=== PATIENT | male | born 1935 | race Caucasian/White ===

== ENCOUNTER 2017-04-22 14:55 | Emergency (ER) | payer MEDICARE, MEDICAID ==
[~2017-04-22] VITALS: Ht 162.6 cm; Wt 81.6 kg
[~2017-04-22 14:55] MED LIST: AMLODIPINE BES2.5 MG ORAL; AMLODIPINE BESYL5 MG ORAL; ASPIR 8181 MG ORAL; CEPHALEXIN500 MG ORAL; FUROSEMIDE40 MG ORAL; HEPARIN SO5000 UNIT2 SUBQ; HEPARIN1000 UNIT/ SUBQ; POTASSIUM CHLO20 ME1 ORAL; POTASSIUM CHLO20 ME2 ORAL; ROCEPHIN 11 GM/50 ML IVPB; TYLENOL650 MG/20. ORAL; VANCOMYCIN1 GM/2502 IVPB
[2017-04-22 15:15] VITALS: BP 152/72
[2017-04-22] MEDS ORDERED: BACTRIM DS TAB1 EAC1 ORAL (15:21)
[2017-04-22 15:26] VITALS: BP 132/62
--- NOTE | 2017-04-22 15:27 | Emergency Room Report ---
History of Present Illness General Chief Complaint: General Complaint Source: Medical Record, Caregiver Present Illness HPI 81YOM BIB HCW from [facility] with 2 days right foot redness/swelling/warmth patient aphasic, developmental delay since HCW denies vomiting, diarrhea, fever/chills Feels well otherwise Denies DM history Denies known history of cellulitis, asbcess Allergies: Coded Allergies: No Known Allergies (Unverified , 06/15/12) Patient History Limited by: medical condition Past Medical History: other - developmental delay Past Surgical History: none Pertinent Family History: none Social History: Denies: alcohol use, drug use, smoking Immunizations: UTD Reviewed Nursing Documentation: PMH: Agreed, PSxH: Agreed Nursing Documentation-PMH Hx Hypertension: Yes Hx Cancer: No Hx Gastrointestinal Problems: No Hx Neurological Problems: Yes - MENTALLY DELAYED Hx Memory Loss: Yes Hx Concentration Difficulty: Yes Hx Speech Problem: Yes Hx Aphasia: Yes Hx Weakness: Yes Review of Systems All Other Systems: negative except mentioned in HPI Physical Exam Vital Signs Date Time Temp Pulse Resp B/P Pulse Ox O2 Delivery O2 Flow Rate FiO2 04/22/17 15:04 97.7 80 18 152/72 99 Room Air Sp02 EP Interpretation: reviewed, normal General Appearance: normal inspection, well appearing, no apparent distress, alert, GCS 15, non-toxic Head: normocephalic, atraumatic Eyes: bilateral eye EOMI, bilateral eye PERRL ENT: normal ENT inspection, hearing grossly normal, normal voice Neck: normal inspection, full range of motion, supple, no bony tend Respiratory: normal inspection, lungs clear, normal breath sounds, no respiratory distress, no retraction, no wheezing Cardiovascular #1: regular rate, rhythm, no edema Gastrointestinal: normal inspection, normal bowel sounds, non tender, soft, no guarding, no hernia Genitourinary: no CVA tenderness Musculoskeletal: other - Right foot: non-pitting edema, streaking erythema. Palpable warmth. No right calf ttp, swelling Neurologic: normal inspection, alert, oriented x3, responsive, hybrid corn breeder III-XII nml as tested, motor strength/tone normal, speech normal Psychiatric: normal inspection, judgement/insight normal, mood/affect normal Skin: normal inspection, normal color, no rash Medical Decision Making Diagnostic Impression: Primary Impression: Cellulitis Qualified Codes: L03.115 - Cellulitis of right lower limb ER Course Right foot cellulitis Rx bactrim Not systemically ill Afebrile Low suspicion for DVT given no calf ttp, no recent surgery, non-smoker Last Vital Signs Date Time Temp Pulse Resp B/P Pulse Ox O2 Delivery O2 Flow Rate FiO2 04/22/17 15:15 97.7 18 152/72 99 Room Air 04/22/17 15:04 80 Status: improved Disposition: HOME, SELF-CARE Condition: Improved Scripts Trimethoprim/Sulfamethoxazole 160/800* (BACTRIM DS TABLET*) 1 Each Tablet 1 TAB ORAL Q12H for 7 Days, #13 TAB 0 Refills Prov: BUDDY MARTINEZ M.D. 04/22/17 Patient Instructions: Cellulitis, [id number] Additional Instructions: - Take ALL antibiotics until finished - Return to ER for fever, spread of redness/rash/swelling up leg BUDDY MARTINEZ M.D. Apr 22, 2017 15:27
[2017-04-22] MEDS ORDERED: Bactrim DS (160mg/800mg) tab ORAL ONE (15:30)
== END 2017-04-22 15:30 | disposition home or self-care (01) ==
LOC: EMR 15:30
DX: L03.115 Cellulitis of right lower limb (principal); R62.50 Unspecified lack of expected normal physiological development in childhood; I10 Essential (primary) hypertension
CPT/HCPCS: 99283

== ENCOUNTER 2018-01-07 10:08 | Inpatient (IN) | payer MEDICARE, MEDICAID ==
[2018-01-07] VITALS (7 sets, daily range): BP systolic 103–128; BP diastolic 55–85
[~2018-01-07] VITALS: Ht 157.5 cm; Wt 86.6 kg
[~2018-01-07 10:08] MED LIST changes: +BACTRIM DS TAB1 EAC1 ORAL
[2018-01-07] MEDS ORDERED: LEVOTHYROXINE75 MCG ORAL (10:29)
[2018-01-07] MEDS ORDERED: Silver Nitrate Stick TOPIC ONE (11:06)
--- NOTE | 2018-01-07 11:25 | Emergency Room Report ---
History of Present Illness General Chief Complaint: Nosebleed Source: Medical Record, EMS Present Illness HPI Patient presents with complaints of epistaxis Patient himself has significant developmental delay Patient is here with communications media professor Who reports that yesterday patient had similar episode he appears to be picking at his nose The bleeding stopped yesterday with some pressure however today again he was seen picking at the nose and the bleeding was more difficult to stop History from the patient is not able to be obtained Powersaw Supervisor reports some change in thyroid medicine denies any Coumadin or other blood thinners other than aspirin Allergies: Coded Allergies: No Known Allergies (Unverified , 06/15/12) Patient History Limited by: medical condition Past Medical History: see triage record Pertinent Family History: unable to obtain Reviewed Nursing Documentation: PMH: Agreed; PSxH: Agreed Nursing Documentation-PMH Past Medical History: No History, Except For Hx Hypertension: Yes Hx Cancer: No Hx Gastrointestinal Problems: No Hx Neurological Problems: Yes - MENTALLY DELAYED Hx Memory Loss: Yes Hx Concentration Difficulty: Yes Hx Speech Problem: Yes Hx Aphasia: Yes Hx Weakness: Yes Review of Systems All Other Systems: limited - Other than the ones mentioned in the history of present illness all others are reviewed however they do stay limited due to the patient's mental status Physical Exam Vital Signs Date Time Temp Pulse Resp B/P (MAP) Pulse Ox O2 Delivery O2 Flow Rate FiO2 01/07/18 10:08 98.9 123 18 125/85 100 Room Air 99.0 Sp02 EP Interpretation: reviewed, normal General Appearance: no apparent distress Head: normocephalic, atraumatic Eyes: bilateral eye PERRL ENT: other - Evidence of anterior bleeding from the right chamber, not pulsatile Neck: supple Respiratory: chest non-tender, lungs clear Cardiovascular #1: regular rate, rhythm Gastrointestinal: non tender, soft Musculoskeletal: normal inspection Neurologic: alert - Responsive makes eye contact, however nonverbal, baseline mental status per communications media professor Skin: normal color, no rash Lymphatic: no adenopathy Procedures Additional Procedure Procedure Narrative Initially direct pressure was applied to the right nasal region along with silver nitrate application. Patient however continued to have oozing of blood from the anterior chamber and therefore packing was placed. 7.5 cm nasal packing with posterior and anterior chamber balloon sure placed in both inflated vision tolerate the procedure very well Medical Decision Making Diagnostic Impression: Primary Impression: Epistaxis Additional Impression: Severe epistaxis ER Course Given the patient's presentation and history baseline blood work was initiated Initial attempt of pressure and silver nitrate does not appropriately control the bleeding therefore the patient needed packing of the right nasal Nare This is performed and patient will require further observation Powersaw Supervisor is also concerned about the patient's behavior and possible removal of the apparatus Last Vital Signs Date Time Temp Pulse Resp B/P (MAP) Pulse Ox O2 Delivery O2 Flow Rate FiO2 01/07/18 10:20 99.0 85 18 125/85 100 Room Air 99.0 Status: improved Disposition: ADMITTED INPATIENT Condition: Serious Laura Uribe DO Jan 07, 2018 11:25
[2018-01-07 11:56] LABS: BASOPHILS % (AUTO) 0.7 % (0.0-2.0); HEMATOCRIT 37.7 % (42.0-52.0); LYMPHOCYTES % (AUTO) 14.3 % (20.0-45.0); MEAN CORPUSCULAR VOLUME 87 FL (80-99); PLATELET COUNT 244 K/UL (150-450); RED BLOOD COUNT 4.33 M/UL (4.70-6.10); RED CELL DISTRIBUTION WIDTH 12.4 % (11.6-14.8); WHITE BLOOD COUNT 8.6 K/UL (4.8-10.8)
[2018-01-07 12:05] LABS: INR 1.1 (0.9-1.1)
[2018-01-07 12:08] LABS: ANION GAP 8 mmol/L (5-15); BLOOD UREA NITROGEN 26 mg/dL (7-18); CALCIUM 8.3 MG/DL (8.5-10.1); CARBON DIOXIDE 26 MMOL/L (21-32); CHLORIDE 109 MMOL/L (98-107); CREATININE 1.1 MG/DL (0.55-1.30); POTASSIUM 3.6 MMOL/L (3.5-5.1); SODIUM 143 MMOL/L (136-145)
[2018-01-07] MEDS ORDERED: Augmentin 875mg Tab ORAL ONE (13:15)
[2018-01-07] MEDS ORDERED: Zolpidem 5mg tab ORAL PRN (13:30)
[2018-01-07] MEDS ORDERED: Mylanta II UD 30ml ORAL PRN (13:30)
[2018-01-07] MEDS ORDERED: Miralax 17gm pkt ORAL PRN (13:30)
[2018-01-07] MEDS ORDERED: Morphine Sulfate 4mg/ml Inj IVP PRN (13:30)
[2018-01-07] MEDS ORDERED: LORazepam Inj 2mg/ml 1ml IV PRN (13:30)
--- NOTE | 2018-01-07 15:05 | Consultation ---
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 His nose was packed by ER physician and he is admitted for observation. Allergies: Coded Allergies: No Known Allergies (Unverified , 06/15/12) Medication History Scheduled Amlodipine Besylate* (Amlodipine Besylate*), 2.5 MG ORAL DAILY, (Reported) Aspirin* (Aspir 81*), 81 MG ORAL DAILY, (Reported) Furosemide* (Lasix*), 40 MG ORAL TWICE A DAY, (Reported) Levothyroxine Sodium* (Levothyroxine Sodium*), 75 MCG ORAL DAILY, (Reported) Potassium Chloride* (K-Dur*), 20 MEQ ORAL TWICE A DAY, (Reported) Discontinued Medications Acetaminophen (Acetaminophen), 650 MG ORAL Q6H PRN for Prn Headache/Temp > 101, (Reported) Discontinued Reason: MD discontinued med Cephalexin* (Keflex*), 500 MG ORAL EVERY 12 HOURS Discontinued Reason: Therapy completed Potassium Chloride (Potassium Chloride), 20 MEQ ORAL DAILY Discontinued Reason: Medication dose changed Trimethoprim/Sulfamethoxazole 160/800* (Bactrim Ds Tablet*), 1 TAB ORAL Q12H Discontinued Reason: Therapy completed Patient History Healthcare decision maker Resuscitation status Advanced Directive on File Past Medical/Surgical History Past Medical/Surgical History: (1) Developmental delay Review of Systems All Other Systems: negative except mentioned in HPI Physical Exam General Appearance: WD/WN Lines, tubes and drains: peripheral HEENT: normocephalic, atraumatic, other - nose is packed Neck: non-tender, normal alignment Respiratory/Chest: chest wall non-tender, normal breath sounds Breasts: no masses Cardiovascular/Chest: normal rate Abdomen: normal bowel sounds, non tender Genitourinary/Rectal: normal genital exam Last 24 Hour Vital Signs Date Time Temp Pulse Resp B/P (MAP) Pulse Ox O2 Delivery O2 Flow Rate FiO2 01/07/18 13:00 89 12 106/63 100 Room Air 01/07/18 10:20 99.0 85 18 125/85 100 Room Air 99.0 01/07/18 10:08 98.9 123 18 125/85 100 Room Air 99.0 Laboratory Tests Test 01/07/18 11:30 White Blood Count 8.6 K/UL (4.8-10.8) Red Blood Count 4.33 M/UL (4.70-6.10) L Hemoglobin 13.0 G/DL (14.2-18.0) L Hematocrit 37.7 % (42.0-52.0) L Mean Corpuscular Volume 87 FL (80-99) Mean Corpuscular Hemoglobin 30.2 PG (27.0-31.0) Mean Corpuscular Hemoglobin Concent 34.6 G/DL (32.0-36.0) Red Cell Distribution Width 12.4 % (11.6-14.8) Platelet Count 244 K/UL (150-450) Mean Platelet Volume 8.2 FL (6.5-10.1) Neutrophils (%) (Auto) 69.0 % (45.0-75.0) Lymphocytes (%) (Auto) 14.3 % (20.0-45.0) L Monocytes (%) (Auto) 12.0 % (1.0-10.0) H Eosinophils (%) (Auto) 4.0 % (0.0-3.0) H Basophils (%) (Auto) 0.7 % (0.0-2.0) Prothrombin Time 11.3 SEC (9.30-11.50) Prothromb Time International Ratio 1.1 (0.9-1.1) Activated Partial Thromboplast Time 28 SEC (23-33) Sodium Level 143 MMOL/L (136-145) Potassium Level 3.6 MMOL/L (3.5-5.1) Chloride Level 109 MMOL/L (98-107) H Carbon Dioxide Level 26 MMOL/L (21-32) Anion Gap 8 mmol/L (5-15) Blood Urea Nitrogen 26 mg/dL (7-18) H Creatinine 1.1 MG/DL (0.55-1.30) Estimat Glomerular Filtration Rate mL/min (>60) Glucose Level 128 MG/DL (74-106) H Calcium Level 8.3 MG/DL (8.5-10.1) L Height (Feet): 5 Height (Inches): 2.00 Weight (Pounds): 191 Medications Current Medications Medications (Trade) Dose Ordered Sig/Brian Route PRN Reason Start Time Stop Time Status Last Admin Dose Admin Acetaminophen (Tylenol) 650 mg Q4H PRN ORAL fever (temp>100.5F) 01/07/18 13:30 02/06/18 13:29 Al Hydroxide/Mg Hydroxide (Mylanta II) 30 ml Q6H PRN ORAL dyspepsia 01/07/18 13:30 02/06/18 13:29 Amlodipine Besylate (Norvasc) 2.5 mg DAILY ORAL 01/08/18 09:00 02/07/18 08:59 Dextrose (Dextrose 50%) 25 ml STAT PRN IV Hypoglycemia 01/07/18 13:30 02/06/18 13:29 Dextrose (Dextrose 50%) 50 ml STAT PRN IV Hypoglycemia 01/07/18 13:30 02/06/18 13:29 Furosemide (Lasix) 40 mg TWICE A DAY ORAL 01/07/18 18:00 02/06/18 17:59 Levothyroxine Sodium (Synthroid) 75 mcg BEFORE BREAKFAST ORAL 01/08/18 06:30 02/07/18 06:29 Lorazepam (Ativan 2mg/ml 1ml) 0.5 mg Q4H PRN IV For Anxiety 01/07/18 13:30 01/14/18 13:29 Mirtazapine (Remeron) 7.5 mg BEDTIME ORAL 01/07/18 21:00 02/06/18 20:59 Morphine Sulfate (Morphine Sulfate) 1 mg Q4H PRN IVP For Pain 01/07/18 13:30 01/14/18 13:29 Ondansetron HCl (Zofran) 4 mg Q6H PRN IVP Nausea & Vomiting 01/07/18 13:30 02/06/18 13:29 Polyethylene Glycol (Miralax) 17 gm HSPRN PRN ORAL Constipation 01/07/18 13:30 02/06/18 13:29 Zolpidem Tartrate (Ambien) 5 mg HSPRN PRN ORAL Insomnia 01/07/18 13:30 01/14/18 13:29 Assessment/Plan Problem List: (1) Severe epistaxis ICD Codes: R04.0 - Epistaxis SNOMED: 448606128 (2) Developmental delay ICD Codes: R62.50 - Unspecified lack of expected normal physiological development in childhood SNOMED: 161356231 Assessment/Plan ENT evaluation keep the packing psych to see the patient hold Aspirin dvt prophylaxis haldol for agitation Yolanda Lazcano MD Jan 07, 2018 15:05
[2018-01-07] MEDS: Haloperidol 5mg/ml Inj IM PRN ×2 (15:28→20:02)
[2018-01-07] MEDS: LORazepam Inj 2mg/ml 1ml IV PRN ×2 (15:29→20:02)
--- NOTE | 2018-01-07 17:00 | Consultation ---
DATE OF CONSULTATION: 01/07/2018 HISTORY OF PRESENT ILLNESS: This is an 82-year-old male with a history of multiple medical problems including cellulitis, sepsis, leukocytosis, urinary tract infection, and severe epistaxis, who has been admitted to the hospital with a chief complaint of epistaxis. The patient has also history of developmental delay. 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 He has episodes of anxiety and agitation. Unable to provide any history. The history was provided by the district associate judge as well as primarily medical chart. The patient was calm during the evaluation. He is a poor historian due to cognitive impairment. PAST PSYCHIATRIC HISTORY: Developmental disability, cognitive impairment, agitation, and anxiety. PAST MEDICAL HISTORY: As above. ALLERGIES: No known drug allergies. SUBSTANCE ABUSE HISTORY: No known history of illicit drug use or alcohol. MENTAL STATUS EXAMINATION: The patient is alert and disoriented. Mood is neutral to anxious. Affect is constricted. Congruent with mood. Thought process is concrete. Thought content, no suicidal or homicidal ideations. ASSESSMENT: [place] I Developmental disability and cognitive impairment. [place] II Deferred. [place] III Nosebleed. [place] IV Low. [place] V Global assessment of functioning is 20. PLAN: 1. The patient will be continued on Ativan p.r.n. We will start the patient on Remeron 7.5 at bedtime. 2. Provide the patient with supportive therapy and reality orientation. We will continue to follow and readjust the medications. Loulou Gutierrez M.D. DR: JAYSON JOB#: [id number] CC:
[2018-01-07] MEDS: Furosemide 40mg tab ORAL SCH (18:08)
[2018-01-08] VITALS: BP 134/73
[2018-01-08 04:00] VITALS: BP 118/68
[2018-01-08 07:07] LABS: BASOPHILS % (AUTO) 0.6 % (0.0-2.0); EOSINOPHILS % (AUTO) 0.4 % (0.0-3.0); HEMATOCRIT 31.3 % (42.0-52.0); HEMOGLOBIN 10.7 G/DL (14.2-18.0); LYMPHOCYTES % (AUTO) 16.6 % (20.0-45.0); MEAN CORPUSCULAR VOLUME 88 FL (80-99); MONOCYTES % (AUTO) 13.1 % (1.0-10.0); NEUTROPHILS % (AUTO) 69.4 % (45.0-75.0); PLATELET COUNT 191 K/UL (150-450); RED BLOOD COUNT 3.58 M/UL (4.70-6.10); RED CELL DISTRIBUTION WIDTH 12.8 % (11.6-14.8)
[2018-01-08 07:24] LABS: ALANINE AMINOTRANSFERASE 22 U/L (12-78); ALBUMIN 2.5 G/DL (3.4-5.0); ALBUMIN/GLOBULIN RATIO 0.7 (1.0-2.7); ALKALINE PHOSPHATASE 71 U/L (46-116); ANION GAP 7 mmol/L (5-15); ASPARTATE AMINO TRANSFERASE 26 U/L (15-37); BILIRUBIN,TOTAL 0.2 MG/DL (0.2-1.0); BLOOD UREA NITROGEN 44 mg/dL (7-18); CALCIUM 8.4 MG/DL (8.5-10.1); CARBON DIOXIDE 27 MMOL/L (21-32); CHLORIDE 112 MMOL/L (98-107); CHOLESTEROL 126 MG/DL (< 200); CREATININE 1.1 MG/DL (0.55-1.30); HDL CHOLESTEROL 33 MG/DL (40-60); POTASSIUM 3.9 MMOL/L (3.5-5.1); SODIUM 146 MMOL/L (136-145); TRIGLYCERIDES 58 MG/DL (30-150)
[2018-01-08 07:58] VITALS: BP 129/85
[2018-01-08] MEDS: Furosemide 40mg tab ORAL SCH (09:00)
--- NOTE | 2018-01-08 09:28 | General Progress Note ---
Assessment/Plan Problem List: (1) Tachycardia ICD Codes: R00.0 - Tachycardia, unspecified SNOMED: 1444717 (2) Cellulitis ICD Codes: L03.90 - Cellulitis SNOMED: 974720658 (3) Sepsis ICD Codes: A41.9 - Sepsis, unspecified organism SNOMED: 21932242 (4) Leukocytosis ICD Codes: D72.829 - Elevated white blood cell count, unspecified SNOMED: 554490520 (5) UTI (lower urinary tract infection) ICD Codes: N39.0 - Urinary tract infection, site not specified SNOMED: 6506818 (6) Severe epistaxis ICD Codes: R04.0 - Epistaxis SNOMED: 053482020 (7) Epistaxis ICD Codes: R04.0 - Epistaxis SNOMED: 259267945 Status: stable Status Narrative Pt is no longer bleeding. Assessment/Plan At 0920 I removed Rhiorocket-no bleeding for 5 minutes. I would suggest leaving moustache dressing under nose. OK to send home from ENT perspective. HgB is stable-10.1 Subjective Date patient seen: January 08, 2018 Time patient seen: 09:13 ROS Limited/Unobtainable: Yes Constitutional: Reports: other - epistaxis HEENT: Reports: other - Rhinorocket in right nostril Cardiovascular: Reports: edema Respiratory: Reports: no symptoms Gastrointestinal/Abdominal: Reports: no symptoms Genitourinary: Reports: no symptoms Neurologic/Psychiatric: Reports: other - Developmentally delayed Endocrine: Reports: other - Thyroid Hematologic/Lymphatic: Reports: other - bleeding from nose x 2 days Allergies: Coded Allergies: No Known Allergies (Unverified , 06/15/12) All Systems: reviewed and negative except above Subjective Nose: Rhinorocket in right nostril At about 0850 I released all air from both Rhinorocket balloons. 0910 I came back and advanced, but did not remove the Rhinorocket. Objective Last 24 Hour Vital Signs Date Time Temp Pulse Resp B/P (MAP) Pulse Ox O2 Delivery O2 Flow Rate FiO2 01/08/18 09:00 114 129/85 01/08/18 07:58 98.2 114 18 129/85 95 98.2 01/08/18 04:00 97.8 116 20 118/68 95 97.8 5/1/18 00:00 98.1 115 21 134/73 95 98.1 01/07/18 20:32 97.9 103 20 106/55 96 97.9 01/07/18 18:48 98.2 95 18 110/67 97 Room Air 98.2 01/07/18 16:18 97.3 67 20 128/82 96 97.3 01/07/18 15:30 98.9 97 20 103/60 96 Room Air 98.9 01/07/18 15:00 99.0 89 12 106/63 100 Room Air 99.0 01/07/18 15:00 90 16 120/76 100 Room Air 01/07/18 13:00 89 12 106/63 100 Room Air 01/07/18 10:20 99.0 85 18 125/85 100 Room Air 99.0 01/07/18 10:08 98.9 123 18 125/85 100 Room Air 99.0 Intake and Output 01/07/18 01/08/18 19:00 07:00 Intake Total 290 ml 360 ml Balance 290 ml 360 ml Intake Oral 290 ml 360 ml # Voids 2 4 Laboratory Tests 01/07/18 11:30: White Blood Count 8.6, Red Blood Count 4.33L, Hemoglobin 13.0L, Hematocrit 37.7L , Mean Corpuscular Volume 87, Mean Corpuscular Hemoglobin 30.2, Mean Corpuscular Hemoglobin Concent 34.6, Red Cell Distribution Width 12.4, Platelet Count 244, Mean Platelet Volume 8.2, Neutrophils (%) (Auto) 69.0, Lymphocytes (% ) (Auto) 14.3L, Monocytes (%) (Auto) 12.0H, Eosinophils (%) (Auto) 4.0H, Basophils (%) (Auto) 0.7, Prothrombin Time 11.3, Prothromb Time International Ratio 1.1, Activated Partial Thromboplast Time 28, Sodium Level 143, Potassium Level 3.6, Chloride Level 109H, Carbon Dioxide Level 26, Anion Gap 8, Blood Urea Nitrogen 26H, Creatinine 1.1, Estimat Glomerular Filtration Rate , Glucose Level 128H, Calcium Level 8.3L 01/08/18 05:05: White Blood Count 8.0, Red Blood Count 3.58L, Hemoglobin 10.7L, Hematocrit 31.3L , Mean Corpuscular Volume 88, Mean Corpuscular Hemoglobin 29.9, Mean Corpuscular Hemoglobin Concent 34.1, Red Cell Distribution Width 12.8, Platelet Count 191, Mean Platelet Volume 7.0, Neutrophils (%) (Auto) 69.4, Lymphocytes (% ) (Auto) 16.6L, Monocytes (%) (Auto) 13.1H, Eosinophils (%) (Auto) 0.4, Basophils (%) (Auto) 0.6, Sodium Level 146H, Potassium Level 3.9, Chloride Level 112H, Carbon Dioxide Level 27, Anion Gap 7, Blood Urea Nitrogen 44H, Creatinine 1.1, Estimat Glomerular Filtration Rate , Glucose Level 106, Calcium Level 8.4L, Total Bilirubin 0.2, Aspartate Amino Transf (AST/SGOT) 26, Alanine Aminotransferase (ALT/SGPT) 22, Alkaline Phosphatase 71, Total Protein 6.3L, Albumin 2.5L, Globulin 3.8, Albumin/Globulin Ratio 0.7L, Triglycerides Level 58 , Cholesterol Level 126, LDL Cholesterol 90, HDL Cholesterol 33L, Cholesterol/ HDL Ratio 3.8, Thyroid Stimulating Hormone (TSH) 1.934 Height (Feet): 5 Height (Inches): 2.00 Weight (Pounds): 191 General Appearance: confused, mild distress EENT: PERRL/EOMI, TMs normal, pharynx normal, other - Rhinorocket in right nostril and dried crust. Neck: non-tender, normal alignment, supple, normal inspection Skin: normal pigmentation, warm/dry Lymphatic: normal anterior cervical (L), normal anterior cervical (R), normal posterior cervical (L), normal posterior cervical (R), normal submandibular (L) , normal submandibular (R) Objective INR 1.1 WNL REJI SHELDON January 08, 2018 09:28
[2018-01-08 11:56] VITALS: BP 140/78
--- NOTE | 2018-01-08 14:51 | Pulmonology Progress Note ---
Assessment/Plan Problems: (1) Severe epistaxis (2) Developmental delay Assessment/Plan bleeding stopped packing removed behavior better dc to assisted living today. Subjective ROS Limited/Unobtainable: No Interval Events: bleeding stopped Allergies: Coded Allergies: No Known Allergies (Unverified , 06/15/12) Objective Last 24 Hour Vital Signs Date Time Temp Pulse Resp B/P (MAP) Pulse Ox O2 Delivery O2 Flow Rate FiO2 01/08/18 11:56 98.4 108 18 140/78 98 98.4 01/08/18 09:00 114 129/85 01/08/18 07:58 98.2 114 18 129/85 95 98.2 01/08/18 04:00 97.8 116 20 118/68 95 97.8 01/08/18 00:00 98.1 115 21 134/73 95 98.1 01/07/18 20:32 97.9 103 20 106/55 96 97.9 01/07/18 18:48 98.2 95 18 110/67 97 Room Air 98.2 01/07/18 16:18 97.3 67 20 128/82 96 97.3 01/07/18 15:30 98.9 97 20 103/60 96 Room Air 98.9 01/07/18 15:00 99.0 89 12 106/63 100 Room Air 99.0 01/07/18 15:00 90 16 120/76 100 Room Air Intake and Output 01/07/18 01/08/18 19:00 07:00 Intake Total 290 ml 360 ml Balance 290 ml 360 ml Intake Oral 290 ml 360 ml # Voids 2 4 General Appearance: WD/WN HEENT: normocephalic, atraumatic Respiratory/Chest: chest wall non-tender, lungs clear Cardiovascular: normal peripheral pulses, normal rate Abdomen: normal bowel sounds, soft, non tender Genitourinary: normal external genitalia Skin: no rash Neurologic/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: 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 normal Lymphatic: no neck adenopathy Laboratory Tests 01/08/18 05:05: White Blood Count 8.0, Red Blood Count 3.58L, Hemoglobin 10.7L, Hematocrit 31.3L , Mean Corpuscular Volume 88, Mean Corpuscular Hemoglobin 29.9, Mean Corpuscular Hemoglobin Concent 34.1, Red Cell Distribution Width 12.8, Platelet Count 191, Mean Platelet Volume 7.0, Neutrophils (%) (Auto) 69.4, Lymphocytes (% ) (Auto) 16.6L, Monocytes (%) (Auto) 13.1H, Eosinophils (%) (Auto) 0.4, Basophils (%) (Auto) 0.6, Sodium Level 146H, Potassium Level 3.9, Chloride Level 112H, Carbon Dioxide Level 27, Anion Gap 7, Blood Urea Nitrogen 44H, Creatinine 1.1, Estimat Glomerular Filtration Rate , Glucose Level 106, Calcium Level 8.4L, Total Bilirubin 0.2, Aspartate Amino Transf (AST/SGOT) 26, Alanine Aminotransferase (ALT/SGPT) 22, Alkaline Phosphatase 71, Total Protein 6.3L, Albumin 2.5L, Globulin 3.8, Albumin/Globulin Ratio 0.7L, Triglycerides Level 58 , Cholesterol Level 126, LDL Cholesterol 90, HDL Cholesterol 33L, Cholesterol/ HDL Ratio 3.8, Thyroid Stimulating Hormone (TSH) 1.934 Current Medications Medications (Trade) Dose Ordered Sig/Brian Route PRN Reason Start Time Stop Time Status Last Admin Dose Admin Acetaminophen (Tylenol) 650 mg Q4H PRN ORAL fever (temp>100.5F) 01/07/18 13:30 02/06/18 13:29 Al Hydroxide/Mg Hydroxide (Mylanta II) 30 ml Q6H PRN ORAL dyspepsia 01/07/18 13:30 02/06/18 13:29 Amlodipine Besylate (Norvasc) 2.5 mg DAILY ORAL 01/08/18 09:00 02/07/18 08:59 Dextrose (Dextrose 50%) 25 ml STAT PRN IV Hypoglycemia 01/07/18 13:30 02/06/18 13:29 Dextrose (Dextrose 50%) 50 ml STAT PRN IV Hypoglycemia 01/07/18 13:30 02/06/18 13:29 Furosemide (Lasix) 40 mg TWICE A DAY ORAL 01/07/18 18:00 02/06/18 17:59 01/07/18 18:08 Haloperidol Lactate (Haldol) 5 mg Q4H PRN IM Agitation 01/07/18 15:15 02/06/18 15:14 01/07/18 20:02 Levothyroxine Sodium (Synthroid) 75 mcg BEFORE BREAKFAST ORAL 01/08/18 06:30 02/07/18 06:29 01/08/18 06:15 Lorazepam (Ativan 2mg/ml 1ml) 1 mg Q4H PRN IV For Anxiety 01/07/18 15:30 01/14/18 15:29 01/07/18 20:02 Mirtazapine (Remeron) 7.5 mg BEDTIME ORAL 01/07/18 21:00 02/06/18 20:59 01/07/18 21:14 Morphine Sulfate (Morphine Sulfate) 1 mg Q4H PRN IVP For Pain 01/07/18 13:30 01/14/18 13:29 Ondansetron HCl (Zofran) 4 mg Q6H PRN IVP Nausea & Vomiting 01/07/18 13:30 02/06/18 13:29 Polyethylene Glycol (Miralax) 17 gm HSPRN PRN ORAL Constipation 01/07/18 13:30 02/06/18 13:29 Zolpidem Tartrate (Ambien) 5 mg HSPRN PRN ORAL Insomnia 01/07/18 13:30 01/14/18 13:29 Yolanda Lazcano MD January 08, 2018 14:51
--- NOTE | 2018-01-08 22:51 | General Progress Note ---
Assessment/Plan Status: stable, progressing Assessment/Plan 1. The patient will be continued on Ativan p.r.n. We will start the patient on Remeron 7.5 at bedtime. 2. Provide the patient with supportive therapy and reality orientation. Subjective Date patient seen: January 08, 2018 Neurologic/Psychiatric: Reports: anxiety, depressed, emotional problems Allergies: Coded Allergies: No Known Allergies (Unverified , 06/15/12) Objective Last 24 Hour Vital Signs Date Time Temp Pulse Resp B/P (MAP) Pulse Ox O2 Delivery O2 Flow Rate FiO2 01/08/18 11:56 98.4 108 18 140/78 98 98.4 01/08/18 09:00 114 129/85 01/08/18 07:58 98.2 114 18 129/85 95 98.2 01/08/18 04:00 97.8 116 20 118/68 95 97.8 01/08/18 00:00 98.1 115 21 134/73 95 98.1 Intake and Output 01/07/18 01/08/18 19:00 07:00 Intake Total 290 ml 360 ml Balance 290 ml 360 ml Intake Oral 290 ml 360 ml # Voids 2 4 Laboratory Tests 01/08/18 05:05: White Blood Count 8.0, Red Blood Count 3.58L, Hemoglobin 10.7L, Hematocrit 31.3L , Mean Corpuscular Volume 88, Mean Corpuscular Hemoglobin 29.9, Mean Corpuscular Hemoglobin Concent 34.1, Red Cell Distribution Width 12.8, Platelet Count 191, Mean Platelet Volume 7.0, Neutrophils (%) (Auto) 69.4, Lymphocytes (% ) (Auto) 16.6L, Monocytes (%) (Auto) 13.1H, Eosinophils (%) (Auto) 0.4, Basophils (%) (Auto) 0.6, Sodium Level 146H, Potassium Level 3.9, Chloride Level 112H, Carbon Dioxide Level 27, Anion Gap 7, Blood Urea Nitrogen 44H, Creatinine 1.1, Estimat Glomerular Filtration Rate , Glucose Level 106, Calcium Level 8.4L, Total Bilirubin 0.2, Aspartate Amino Transf (AST/SGOT) 26, Alanine Aminotransferase (ALT/SGPT) 22, Alkaline Phosphatase 71, Total Protein 6.3L, Albumin 2.5L, Globulin 3.8, Albumin/Globulin Ratio 0.7L, Triglycerides Level 58 , Cholesterol Level 126, LDL Cholesterol 90, HDL Cholesterol 33L, Cholesterol/ HDL Ratio 3.8, Thyroid Stimulating Hormone (TSH) 1.934 Height (Feet): 5 Height (Inches): 2.00 Weight (Pounds): 191 General Appearance: no apparent distress, alert, confused Loulou Gutierrez M.D. January 08, 2018 22:51
--- NOTE | 2018-01-10 14:56 | Discharge Summary ---
Discharge Summary Hospital Course Date of Admission Jan 07, 2018 at 12:45 Date of Discharge January 08, 2018 at 15:00 Admitting Diagnosis epistaxis, vomiting HPI Jonathan Barajas is a 82 year old male who was admitted on Jan 07, 2018 at 12:45 for Epistaxis Vomiting Hospital Course [id number] Discharge Discharge Disposition Patient was discharged to assisted living Sil Musa NP January 10, 2018 14:56
--- NOTE | 2018-01-11 00:30 | Discharge Summary 2 SIG ---
DATE OF ADMISSION: 01/07/2018 DATE OF DISCHARGE: 01/08/2018 CONSULTANTS: 1. Loulou Gutierrez M.D. 2. Yolanda Lazcano M.D. 3. Sheldon Isidro M.D. BRIEF HOSPITAL COURSE: The patient is an 82-year-old male, who presented to the ED via EMS for complaints of epistaxis. The patient has significant developmental delay and came with accounting specialist who reported the patient had similar episode and appeared to be picking at his nose. Bleeding stopped the day before admission with some pressure, however, on the day of admission, he again bled and it was more difficult to stop. Outreach Clinician denied any Coumadin or blood thinner use other than aspirin. On evaluation at ED, initial attempt of pressure and silver nitrate did not appropriately control the bleeding. He needed packing on the right nares. Outreach Clinician was concerned about the patient's behavior and possible removal of the apparatus. Hemoglobin was 13. He was then admitted for evaluation of epistaxis. He had episodes of anxiety and agitation. He was given Ativan p.r.n. and Remeron 7.5 mg at bedtime. Aspirin was placed on hold. He was seen by Dr. Isidro. Rhino Rocket was removed. There was no bleeding for 5 minutes. The patient was no longer bleeding. Recommended to leave mustache-dressing on the nose. His behavior was better and no more further bleeding was noted. He was eventually discharged back to assisted living. FINAL DIAGNOSES: 1. Epistaxis. 2. Developmental delay. DISPOSITION: The patient was discharged back to residential care. DISCHARGE MEDICATIONS: Refer to medication list. Librado Faria M.D. I have been assigned to dictate discharge summary on this account and I was not involved in the patient's management. Sil Musa N.P. DR: RADHA JOB#: [id number] CC: MINESH
== END 2018-01-08 15:00 | disposition home or self-care (01) | DRG 951 ==
LOC: EDBD 10:08 → EMR 12:00 → 4W 12:45 → EDBEDREQ 13:06 → EDBEDREQSVC 13:06 → EDBEDREQ 13:08 → 4W 15:47
PROC: 0W3Q7ZZ Control Bleeding in Respiratory Tract, Via Natural or Artificial Opening (ICD-10-PCS; principal; 2018-01-07)
PROC: 2Y41X5Z Packing of Nasal Region using Packing Material (ICD-10-PCS; 2018-01-08)
DX: R04.0 Epistaxis (principal); F41.9 Anxiety disorder, unspecified; F79 Unspecified intellectual disabilities; R11.10 Vomiting, unspecified
CPT/HCPCS: 30901; 36415; 80048; 80053; 80061; 84443; 85025; 85610; 85730; 87081; 93970; 99285

== ENCOUNTER 2018-01-24 19:05 | Emergency (ER) | payer MEDICARE, MEDICAID ==
[~2018-01-24] VITALS: Ht 162.6 cm; Wt 83.9 kg
[~2018-01-24 19:05] MED LIST changes: +LEVOTHYROXINE75 MCG ORAL
[2018-01-24 19:20] VITALS: BP 140/66
[2018-01-24] MEDS ORDERED: Bactrim-DS 1 tab ORAL ONE (19:45)
[2018-01-24] MEDS ORDERED: BACTRIM DS TAB1 EAC1 ORAL (19:53)
[2018-01-24 19:58] VITALS: BP 140/66
--- NOTE | 2018-01-24 22:16 | Emergency Room Report ---
History of Present Illness General Chief Complaint: Skin Rash/Abscess Source: Medical Record Present Illness HPI 82-year-old male presents ED for evaluation. Ton Container Filler at bedside states that patient has some increased redness to his right leg which she noticed today. Patient has prior history of cellulitis. States that she is brought him before and has been prescribed antibiotics. Ton Container Filler states that the antibiotic didn' t resolve the infection. Patient afebrile in triage. 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 Allergies: Coded Allergies: No Known Allergies (Unverified , 06/15/12) Patient History Past Medical History: HTN, other - mental delay Past Surgical History: none Pertinent Family History: none Social History: Denies: smoking, alcohol use, drug use Immunizations: UTD Reviewed Nursing Documentation: PMH: Agreed; PSxH: Agreed Nursing Documentation-PMH Hx Hypertension: Yes Hx Cancer: No Hx Gastrointestinal Problems: No Hx Neurological Problems: Yes - MENTALLY DELAYED Hx Memory Loss: Yes Hx Concentration Difficulty: Yes Hx Speech Problem: Yes Hx Aphasia: Yes Hx Weakness: Yes Review of Systems All Other Systems: negative except mentioned in HPI Physical Exam Vital Signs Date Time Temp Pulse Resp B/P (MAP) Pulse Ox O2 Delivery O2 Flow Rate FiO2 01/24/18 19:11 98.0 100 14 140/66 98 Room Air 98.1 Sp02 EP Interpretation: reviewed, normal General Appearance: no apparent distress, other - nonverbal Head: normocephalic Eyes: bilateral eye normal inspection, bilateral eye PERRL ENT: normal ENT inspection Neck: normal inspection Respiratory: normal inspection Cardiovascular #1: normal inspection Gastrointestinal: normal inspection Rectal: deferred Genitourinary: no CVA tenderness Musculoskeletal: swelling - RLE Neurologic: alert, other - cognitive delay Psychiatric: other - cognitive delay Skin: other - erythema/induration RLE Lymphatic: normal inspection Medical Decision Making Diagnostic Impression: Primary Impression: Cellulitis Qualified Codes: L03.115 - Cellulitis of right lower limb ER Course Hospital Course 82-year-old male presents to ED with redness to RLE Differential diagnoses include: Cellulitis, dermatitis, insect bite, abscess Clinical course Patient placed on stretcher. After initial history, physical exam reveals an elderly male in no acute distress. On exam. Some mild erythema and induration to the right lower extremity. No fluctuance or discharge. patient appears nontoxic, afebrile. Ton Container Filler believes the patient can be prescribed antibiotics and be adequately treated as this is happened to him multiple times in the past. I agree with her assessment Given Bactrim here in ED Diagnosis - cellulitis stable and discharged to home with prescription for bactrim. Instructed to followup with PMD. Instructed return to ED if symptoms recur or worsen Last Vital Signs Date Time Temp Pulse Resp B/P (MAP) Pulse Ox O2 Delivery O2 Flow Rate FiO2 01/24/18 19:20 98.1 14 140/66 98 Room Air 98.1 01/24/18 19:11 100 Status: improved Disposition: HOME, SELF-CARE Condition: Stable Scripts Trimethoprim/Sulfamethoxazole 160/800* (BACTRIM DS TABLET*) 1 Each Tablet 1 TAB ORAL TWICE A DAY for 7 Days, TAB Prov: Jigar Ramos MD 01/24/18 Referrals: NON PHYSICIAN (PCP) Patient Instructions: Cellulitis, [id number] Jigar Ramos MD January 24, 2018 22:16
== END 2018-01-24 19:58 | disposition home or self-care (01) ==
LOC: EMR 19:34
DX: L03.115 Cellulitis of right lower limb (principal); I10 Essential (primary) hypertension
CPT/HCPCS: 99283

== ENCOUNTER 2018-03-16 09:04 | Inpatient (IN) | payer MEDICARE, MEDICAID ==
[~2018-03-16] VITALS: Ht 162.6 cm; Wt 77.8 kg
[2018-03-16 09:13] VITALS: BP 167/78
--- NOTE | 2018-03-16 10:16 | Emergency Room Report ---
History of Present Illness General Chief Complaint: Skin Rash/Abscess Source: Caregiver Present Illness HPI 82-year-old male presents to ED for evaluation. Patient brought in by basin operator.Increased swelling and erythema to the right leg times one day. Patient has history of cellulitis to his legs and has been frequent treated with antibiotics. States that patient appears more altered than baseline. History of cognitive delay. However patient has poor appetite. Afebrile. Unable to provide any additional history at this time. No signs of distress. No other aggravating relieving factors. Denies any other associated symptoms Allergies: Coded Allergies: No Known Allergies (Unverified , 06/15/12) Patient History Past Medical History: other - cognitive delay Past Surgical History: none Pertinent Family History: none Social History: Denies: smoking, alcohol use, drug use Immunizations: UTD Reviewed Nursing Documentation: PMH: Agreed; PSxH: Agreed Nursing Documentation-PMH Past Medical History: No History, Except For Hx Hypertension: Yes Hx Cancer: No Hx Gastrointestinal Problems: No Hx Neurological Problems: Yes - MENTALLY DELAYED Hx Memory Loss: Yes Hx Concentration Difficulty: Yes Hx Speech Problem: Yes Hx Aphasia: Yes Hx Weakness: Yes Review of Systems All Other Systems: limited Physical Exam Vital Signs Date Time Temp Pulse Resp B/P (MAP) Pulse Ox O2 Delivery O2 Flow Rate FiO2 03/16/18 09:06 98.5 102 16 167/78 95 Room Air 98.4 Sp02 EP Interpretation: reviewed, normal General Appearance: other - cognitive delay Head: normocephalic Eyes: bilateral eye normal inspection, bilateral eye PERRL ENT: normal ENT inspection Neck: normal inspection Respiratory: chest non-tender, lungs clear, normal breath sounds, speaking full sentences Cardiovascular #1: regular rate, rhythm, no edema Gastrointestinal: normal inspection Rectal: deferred Genitourinary: no CVA tenderness Musculoskeletal: swelling - swelling/erythema to RLE Neurologic: other - cognitive delay Psychiatric: other - cognitive delay Skin: normal inspection Lymphatic: normal inspection Medical Decision Making Diagnostic Impression: Primary Impression: Developmental delay Additional Impressions: Cellulitis of lower extremity Qualified Codes: L03.115 - Cellulitis of right lower limb Sepsis Qualified Codes: A41.9 - Sepsis, unspecified organism Renal insufficiency ER Course Hospital Course 82-year-old male presenting to ED with generalized weakness, cellulitis of lower extremity Differential diagnoses include: Pneumonia, UTI, sepsis, dehydration, MS/ unstable angina Clinical course Patient placed on stretcher. On personnel monitor with stable vitals are ED course. After initial history and physical, I ordered labs, IV fluids, EKG, chest x-ray, blood cultures, UA. Labs - BUN/Cr elevated, noted leukocytosis, Lactate > 2 EKG - NSR, no acute ischemic changes interpreted by me CXR - cardiomegaly, pumonary congestion, ? mass CT Chest shows no evidence of mass Abx given. given 30cc/kg fluid bolus. Case discussed with Dr Faria and they agreed to admit patient to their service for further care and support I feel this is a highly complex case requiring extensive working including EKG/ Rhythm strip, Xray/CT/US, Blood/urine lab work, repeat exams while in ED, and administration of strong opiates/narcotics for pain control, admission to hospital or close patient follow up. Diagnosis - developmental delay, cellulitis of lower extremity, sepsis, renal insuffiency Patient admitted to telemetry in serious condition Labs Test 03/16/18 10:02 03/16/18 10:20 White Blood Count 20.8 K/UL (4.8-10.8) Red Blood Count 4.55 M/UL (4.70-6.10) Hemoglobin 11.8 G/DL (14.2-18.0) Hematocrit 37.4 % (42.0-52.0) Mean Corpuscular Volume 82 FL (80-99) Mean Corpuscular Hemoglobin 26.0 PG (27.0-31.0) Mean Corpuscular Hemoglobin Concent 31.6 G/DL (32.0-36.0) Red Cell Distribution Width 13.1 % (11.6-14.8) Platelet Count 191 K/UL (150-450) Mean Platelet Volume 8.1 FL (6.5-10.1) Neutrophils (%) (Auto) % (45.0-75.0) Lymphocytes (%) (Auto) % (20.0-45.0) Monocytes (%) (Auto) % (1.0-10.0) Eosinophils (%) (Auto) % (0.0-3.0) Basophils (%) (Auto) % (0.0-2.0) Differential Total Cells Counted 100 Neutrophils % (Manual) 91 % (45-75) Lymphocytes % (Manual) 3 % (20-45) Monocytes % (Manual) 5 % (1-10) Eosinophils % (Manual) 0 % (0-3) Basophils % (Manual) 0 % (0-2) Band Neutrophils 1 % (0-8) Platelet Estimate Adequate Platelet Morphology Normal Red Blood Cell Morphology Normal Sodium Level 136 MMOL/L (136-145) Potassium Level 3.9 MMOL/L (3.5-5.1) Chloride Level 103 MMOL/L (98-107) Carbon Dioxide Level 25 MMOL/L (21-32) Anion Gap 8 mmol/L (5-15) Blood Urea Nitrogen 19 mg/dL (7-18) Creatinine 1.5 MG/DL (0.55-1.30) Estimat Glomerular Filtration Rate mL/min (>60) Glucose Level 141 MG/DL (74-106) Lactic Acid Level 2.90 mmol/L (0.4-2.0) Calcium Level 9.0 MG/DL (8.5-10.1) Total Bilirubin 0.5 MG/DL (0.2-1.0) Aspartate Amino Transf (AST/SGOT) 36 U/L (15-37) Alanine Aminotransferase (ALT/SGPT) 24 U/L (12-78) Alkaline Phosphatase 102 U/L (46-116) Total Protein 8.2 G/DL (6.4-8.2) Albumin 3.2 G/DL (3.4-5.0) Globulin 5.0 g/dL Albumin/Globulin Ratio 0.6 (1.0-2.7) Urine Color Yellow Urine Appearance Clear Urine pH 5 (4.5-8.0) Urine Specific [place] 1.015 (1.005-1.035) Urine Protein 2+ (NEGATIVE) Urine Glucose (UA) Negative (NEGATIVE) Urine Ketones Negative (NEGATIVE) Urine Occult Blood 2+ (NEGATIVE) Urine Nitrite Negative (NEGATIVE) Urine Bilirubin Negative (NEGATIVE) Urine Urobilinogen 1 MG/DL (0.0-1.0) Urine Leukocyte Esterase Negative (NEGATIVE) Urine RBC 2-4 /HPF (0 - 0) Urine WBC 0-2 /HPF (0 - 0) Urine Squamous Epithelial Cells Occasional /LPF Urine Bacteria Occasional /HPF (NONE) Urine Hyaline Casts 0-2 /LPF (NONE) Urine Mucus Moderate /LPF (NONE/OCC) EKG Diagnostic Results Rate: normal Rhythm: other - 1st degree av block ST Segments: no acute changes ASA given to the pt in ED: No Rhythm Strip Diag. Results EP Interpretation: yes Rhythm: no PVC's, no ectopy Chest X-Ray Diagnostic Results Chest X-Ray Diagnostic Results : Chest X-Ray Ordered: Yes # of Views/Limited/Complete: 1 View Indication: Other - weakness EP Interpretation: Yes Interpretation: no pneumothorax, other - cardiomegaly. pulmonary congestion. ? mass Impression: Other - cardiomegaly/ CHF Electronically Signed by: Electronically signed by Jigar Ramos MD CT/MRI/US Diagnostic Results CT/MRI/US Diagnostic Results : Imaging Test Ordered: CT Chest Impression cardiomegaly, no pulmonary edema Last Vital Signs Date Time Temp Pulse Resp B/P (MAP) Pulse Ox O2 Delivery O2 Flow Rate FiO2 03/16/18 09:13 98.4 16 167/78 95 Room Air 98.4 03/16/18 09:06 102 Status: improved Disposition: ADMITTED INPATIENT Condition: Serious Jigar Ramos MD Mar 16, 2018 10:16
[2018-03-16 10:30] LABS: HEMATOCRIT 37.4 % (42.0-52.0); HEMOGLOBIN 11.8 G/DL (14.2-18.0); MEAN CORPUSCULAR VOLUME 82 FL (80-99); PLATELET COUNT 191 K/UL (150-450); RED BLOOD COUNT 4.55 M/UL (4.70-6.10); RED CELL DISTRIBUTION WIDTH 13.1 % (11.6-14.8); WHITE BLOOD COUNT 20.8 K/UL (4.8-10.8)
[2018-03-16 10:41] LABS: ANION GAP 8 mmol/L (5-15); BLOOD UREA NITROGEN 19 mg/dL (7-18); CARBON DIOXIDE 25 MMOL/L (21-32); CHLORIDE 103 MMOL/L (98-107); CREATININE 1.5 MG/DL (0.55-1.30); POTASSIUM 3.9 MMOL/L (3.5-5.1); SODIUM 136 MMOL/L (136-145)
[2018-03-16 10:42] LABS: APPEARANCE,URINE CLEAR; BILIRUBIN, URINE NEGATIVE (NEGATIVE); COLOR,URINE YELLOW; GLUCOSE, URINE (UA) NEGATIVE (NEGATIVE); KETONES,URINE NEGATIVE (NEGATIVE); LEUKOCYTE ESTERASE ,URINE NEGATIVE (NEGATIVE); NITRITE,URINE NEGATIVE (NEGATIVE); PH,URINE 5 (4.5-8.0); PROTEIN,URINE 2+ (NEGATIVE); UROBILINOGEN,URINE 1 MG/DL (0.0-1.0)
[2018-03-16 10:46] LABS: ALANINE AMINOTRANSFERASE 24 U/L (12-78); ALBUMIN 3.2 G/DL (3.4-5.0); ALBUMIN/GLOBULIN RATIO 0.6 (1.0-2.7); ALKALINE PHOSPHATASE 102 U/L (46-116); ASPARTATE AMINO TRANSFERASE 36 U/L (15-37); BILIRUBIN,TOTAL 0.5 MG/DL (0.2-1.0)
[2018-03-16 11:05] VITALS: BP 128/66
[2018-03-16] MEDS ORDERED: Ampicillin/Sulbactam Sod 3 GM in NS 110 ML IVPB ONE (11:15)
--- NOTE | 2018-03-16 11:26 | Diagnostic Imaging Report ---
EXAM: XR Chest, 1 View CLINICAL HISTORY: WEAK TECHNIQUE: Frontal view of the chest. COMPARISON: 03/29/14. FINDINGS: There is an abnormal convexity along the rightward heart border suspicious for a hilar mass. There is also vascular congestion and possible left lower lung consolidation. There is a chronic deformity of the left proximal humerus, incompletely assessed. IMPRESSION: Suspected right perihilar mass. CT is advised. Vascular congestion. Possible lingular infiltrate.
[2018-03-16] MEDS ORDERED: Isovue-300 100ml vial INJ PRN (11:30)
--- NOTE | 2018-03-16 12:12 | Diagnostic Imaging Report ---
EXAM: CT Chest With Intravenous Contrast CLINICAL HISTORY: SOB TECHNIQUE: Axial computed tomography images of the chest with intravenous contrast. One or more of the following dose reduction techniques were used: automated exposure control, adjustment of the mA and/or kV according to patient size, use of iterative reconstruction technique. CT DI 29.21 DLP 774 COMPARISON: No relevant prior studies available. FINDINGS: Lungs: Mild atelectasis. No acute infiltrate.. Pleural space: No pneumothorax. No significant effusion. Heart: Cardiomegaly. Annular aortic valve calcification Bones/joints: Unremarkable. No acute fracture. No dislocation. Soft tissues: Contracted gallbladder with cholelithiasis. Vasculature: Mild thoracic aortic atherosclerosis. No aneurysm. Lymph nodes: No enlarged lymph nodes. IMPRESSION: Cardiomegaly. No pulmonary edema.
[2018-03-16] MEDS ORDERED: Miralax 17gm pkt ORAL PRN (12:45)
[2018-03-16] MEDS ORDERED: Albuterol/Ipratropium 3ml neb HHN PRN (12:45)
[2018-03-16] MEDS ORDERED: Morphine Sulfate 2mg/ml Inj IVP PRN (12:45)
[2018-03-16 13:00] VITALS: BP 120/47
[2018-03-16] MEDS ORDERED: Nitroglycerin Subl 0.4mg tab SL PRN (13:00)
[2018-03-16] MEDS ORDERED: Unasyn 3gm Inj ONE (14:14)
[2018-03-16] MEDS ORDERED: Vancomycin 1250mg/D5W 250ml IVPB SCH (15:00)
[2018-03-16 15:07] LABS: CREATINE KINASE 102 U/L (26-308)
[2018-03-16] MEDS ORDERED: Vancomycin 1.5gm/D5W 250ml 250 ML IVPB ONE (15:22)
[2018-03-16 16:08] VITALS: BP 126/61
[2018-03-16] MEDS: Furosemide 40mg tab ORAL SCH (18:21)
--- NOTE | 2018-03-16 19:31 | Consultation ---
History of Present Illness General Date patient seen: Mar 16, 2018 Chief Complaint: Skin Rash/Abscess Present Illness HPI 82-year-old male with CAD, dementia presented to ED for evaluation of swelling and erythema to the right leg times one day. Patient appears more altered than baseline. He has reportedly poor appetite. Afebrile. Unable to provide any additional history at this time. No signs of distress. No other aggravating relieving factors. Denies any other associated symptoms. Allergies: Coded Allergies: No Known Allergies (Unverified , 06/15/12) Medication History Scheduled Amlodipine Besylate* (Amlodipine Besylate*), 2.5 MG ORAL DAILY, (Reported) Aspirin* (Aspir 81*), 81 MG ORAL DAILY, (Reported) Furosemide* (Lasix*), 40 MG ORAL TWICE A DAY, (Reported) Levothyroxine Sodium* (Levothyroxine Sodium*), 75 MCG ORAL DAILY, (Reported) Potassium Chloride* (K-Dur*), 20 MEQ ORAL TWICE A DAY, (Reported) Trimethoprim/Sulfamethoxazole 160/800* (Bactrim Ds Tablet*), 1 TAB ORAL TWICE A DAY Patient History Healthcare decision maker Resuscitation status Advanced Directive on File Review of Systems All Other Systems: negative except mentioned in HPI Physical Exam General Appearance: WD/WN Lines, tubes and drains: peripheral HEENT: normocephalic, atraumatic Neck: non-tender, normal alignment Respiratory/Chest: chest wall non-tender Cardiovascular/Chest: normal peripheral pulses, normal rate Abdomen: normal bowel sounds, non tender Genitourinary/Rectal: normal genital exam Extremities: normal range of motion Skin Exam: normal pigmentation Last 24 Hour Vital Signs Date Time Temp Pulse Resp B/P (MAP) Pulse Ox O2 Delivery O2 Flow Rate FiO2 03/16/18 17:42 Room Air 03/16/18 16:57 98.4 85 17 126/61 100 Room Air 98.4 03/16/18 16:08 98.4 85 17 126/61 100 Room Air 98.4 03/16/18 13:00 98.4 78 15 120/47 99 Room Air 98.4 03/16/18 11:05 98.4 82 16 128/66 98 Room Air 98.4 03/16/18 09:13 98.4 16 167/78 95 Room Air 98.4 7/7/18 09:06 98.5 102 16 167/78 95 Room Air 98.4 Laboratory Tests Test 03/16/18 10:02 03/16/18 10:12 03/16/18 10:20 03/16/18 16:30 White Blood Count 20.8 K/UL (4.8-10.8) H Red Blood Count 4.55 M/UL (4.70-6.10) L Hemoglobin 11.8 G/DL (14.2-18.0) L Hematocrit 37.4 % (42.0-52.0) L Mean Corpuscular Volume 82 FL (80-99) Mean Corpuscular Hemoglobin 26.0 PG (27.0-31.0) L Mean Corpuscular Hemoglobin Concent 31.6 G/DL (32.0-36.0) L Red Cell Distribution Width 13.1 % (11.6-14.8) Platelet Count 191 K/UL (150-450) Mean Platelet Volume 8.1 FL (6.5-10.1) Neutrophils (%) (Auto) % (45.0-75.0) Lymphocytes (%) (Auto) % (20.0-45.0) Monocytes (%) (Auto) % (1.0-10.0) Eosinophils (%) (Auto) % (0.0-3.0) Basophils (%) (Auto) % (0.0-2.0) Differential Total Cells Counted 100 Neutrophils % (Manual) 91 % (45-75) H Lymphocytes % (Manual) 3 % (20-45) L Monocytes % (Manual) 5 % (1-10) Eosinophils % (Manual) 0 % (0-3) Basophils % (Manual) 0 % (0-2) Band Neutrophils 1 % (0-8) Platelet Estimate Adequate Platelet Morphology Normal Red Blood Cell Morphology Normal Sodium Level 136 MMOL/L (136-145) Potassium Level 3.9 MMOL/L (3.5-5.1) Chloride Level 103 MMOL/L (98-107) Carbon Dioxide Level 25 MMOL/L (21-32) Anion Gap 8 mmol/L (5-15) Blood Urea Nitrogen 19 mg/dL (7-18) H Creatinine 1.5 MG/DL (0.55-1.30) H Estimat Glomerular Filtration Rate mL/min (>60) Glucose Level 141 MG/DL (74-106) H Lactic Acid Level 2.90 mmol/L (0.4-2.0) H 1.30 mmol/L (0.66-2.22) Calcium Level 9.0 MG/DL (8.5-10.1) Total Bilirubin 0.5 MG/DL (0.2-1.0) Aspartate Amino Transf (AST/SGOT) 36 U/L (15-37) Alanine Aminotransferase (ALT/SGPT) 24 U/L (12-78) Alkaline Phosphatase 102 U/L (46-116) Total Protein 8.2 G/DL (6.4-8.2) Albumin 3.2 G/DL (3.4-5.0) L Globulin 5.0 g/dL Albumin/Globulin Ratio 0.6 (1.0-2.7) L Uric Acid 6.0 MG/DL (2.6-7.2) Total Creatine Kinase 102 U/L (26-308) Urine Color Yellow Urine Appearance Clear Urine pH 5 (4.5-8.0) Urine Specific [place] 1.015 (1.005-1.035) Urine Protein 2+ (NEGATIVE) H Urine Glucose (UA) Negative (NEGATIVE) Urine Ketones Negative (NEGATIVE) Urine Occult Blood 2+ (NEGATIVE) H Urine Nitrite Negative (NEGATIVE) Urine Bilirubin Negative (NEGATIVE) Urine Urobilinogen 1 MG/DL (0.0-1.0) H Urine Leukocyte Esterase Negative (NEGATIVE) Urine RBC 2-4 /HPF (0 - 0) H Urine WBC 0-2 /HPF (0 - 0) Urine Squamous Epithelial Cells Occasional /LPF Urine Bacteria Occasional /HPF (NONE) Urine Hyaline Casts 0-2 /LPF (NONE) H Urine Mucus Moderate /LPF (NONE/OCC) H Height (Feet): 5 Height (Inches): 4.00 Weight (Pounds): 180 Medications Current Medications Medications (Trade) Dose Ordered Sig/Brian Route PRN Reason Start Time Stop Time Status Last Admin Dose Admin Acetaminophen (Tylenol) 650 mg Q4H PRN ORAL T>100.5 03/16/18 12:45 04/15/18 12:44 Albuterol/ Ipratropium (Albuterol/ Ipratropium) 3 ml Q4H PRN HHN Shortness of Breath 03/16/18 12:45 03/21/18 12:44 Amlodipine Besylate (Norvasc) 2.5 mg DAILY ORAL 03/17/18 09:00 04/16/18 08:59 Cefepime HCl 2 gm/ Dextrose 110 ml @ 220 mls/hr Q24H IV 03/16/18 20:00 03/23/18 19:59 Dextrose (Dextrose 50%) 25 ml PRN IV Hypoglycemia 03/16/18 13:00 04/15/18 12:59 Dextrose (Dextrose 50%) 50 ml PRN IV hypoglycemia 03/16/18 13:00 04/15/18 12:59 Furosemide (Lasix) 40 mg TWICE A DAY ORAL 03/16/18 18:00 04/15/18 17:59 03/16/18 18:21 Heparin Sodium (Porcine) (Heparin 5000 units/ml) 5,000 units EVERY 12 HOURS SUBQ 03/16/18 21:00 04/15/18 20:59 Iopamidol (Isovue-300 100ml) 100 ml NOW PRN INJ Radiology Procedure 03/16/18 11:30 03/18/18 11:28 Levothyroxine Sodium (Synthroid) 75 mcg DAILY ORAL 03/17/18 09:00 04/16/18 08:59 Morphine Sulfate (Morphine Sulfate) 2 mg Q4H PRN IVP PAIN 4-10 03/16/18 12:45 03/23/18 12:44 Nitroglycerin (Ntg) 0.4 mg Q5MIN X 3 DOSES PRN SL Prn Chest Pain 03/16/18 13:00 04/15/18 12:59 Ondansetron HCl (Zofran) 4 mg Q6H PRN IVP Nausea & Vomiting 03/16/18 12:45 04/15/18 12:44 Polyethylene Glycol (Miralax) 17 gm DAILYPRN PRN ORAL Constipation 03/16/18 12:45 04/15/18 12:44 Potassium Chloride (K-Dur) 20 meq TWICE A DAY ORAL 03/16/18 18:00 04/15/18 17:59 03/16/18 18:21 Temazepam (Restoril) 15 mg HSPRN PRN ORAL Insomnia 03/16/18 21:00 03/23/18 20:59 Vancomycin HCl (Vanco rx to dose) 1 ea DAILY PRN MISC rx per protocol 03/16/18 14:00 04/15/18 13:59 Vancomycin/Sodium Chloride 250 ml @ 166.667 mls/hr Q24H IVPB 03/17/18 15:00 03/22/18 14:59 Assessment/Plan Problem List: (1) Sepsis ICD Codes: A41.9 - Sepsis, unspecified organism SNOMED: 69604141 Qualifiers: Qualified Codes: A41.9 - Sepsis, unspecified organism (2) Acute encephalopathy ICD Codes: G93.40 - Encephalopathy, unspecified SNOMED: 95007537, 538364412 (3) UTI (lower urinary tract infection) ICD Codes: N39.0 - Urinary tract infection, site not specified SNOMED: 3449354 (4) Cellulitis of leg, right ICD Codes: L03.115 - Cellulitis of right lower limb SNOMED: 846772330 (5) HTN (hypertension) ICD Codes: I10 - Essential (primary) hypertension SNOMED: 47608041 (6) Developmental delay ICD Codes: R62.50 - Unspecified lack of expected normal physiological development in childhood SNOMED: 126402525 (7) Hypothyroidism ICD Codes: E03.9 - Hypothyroidism, unspecified SNOMED: 11108257 Assessment/Plan respiratory treatment titrate fio2 IV abx CT reviewed, there is no mass on CT scan aspiration precaution monitor BP Yolanda Lazcano MD Mar 16, 2018 19:31
[2018-03-16] MEDS: Cefepime HCl 2 GM in D5W 110 ML IV SCH (19:40)
[2018-03-16 20:00] VITALS: BP 105/63
[2018-03-16 20:14] LABS: APPEARANCE,URINE SLIGHTLY CLOUDY; BILIRUBIN, URINE NEGATIVE (NEGATIVE); COLOR,URINE AMBER; GLUCOSE, URINE (UA) NEGATIVE (NEGATIVE); KETONES,URINE NEGATIVE (NEGATIVE); LEUKOCYTE ESTERASE ,URINE 2+ (NEGATIVE); NITRITE,URINE NEGATIVE (NEGATIVE); PH,URINE 5 (4.5-8.0); PROTEIN,URINE 2+ (NEGATIVE); UROBILINOGEN,URINE NORMAL MG/DL (0.0-1.0)
[2018-03-16] MEDS: Heparin 5000 units/ml inj SUBQ SCH (20:24)
[2018-03-16] MEDS ORDERED: Cefepime HCl 2 GM in D5W 110 ML IV SCH (21:00)
[2018-03-17] VITALS: BP 115/57
[2018-03-17] MEDS ORDERED: Vancomycin 1 GM in D5W 275 ML IV SCH (00:30)
[2018-03-17 04:00] VITALS: BP 123/68
[2018-03-17 08:00] VITALS: BP 119/61
[2018-03-17] MEDS: Furosemide 40mg tab ORAL SCH ×2 (08:13→17:48)
[2018-03-17] MEDS: Heparin 5000 units/ml inj SUBQ SCH ×2 (08:13→20:24)
[2018-03-17 08:34] LABS: BASOPHILS % (AUTO) 0.4 % (0.0-2.0); EOSINOPHILS % (AUTO) 0.2 % (0.0-3.0); HEMATOCRIT 30.7 % (42.0-52.0); HEMOGLOBIN 10.1 G/DL (14.2-18.0); LYMPHOCYTES % (AUTO) 7.6 % (20.0-45.0); MEAN CORPUSCULAR VOLUME 82 FL (80-99); NEUTROPHILS % (AUTO) 79.9 % (45.0-75.0); PLATELET COUNT 157 K/UL (150-450); RED BLOOD COUNT 3.74 M/UL (4.70-6.10); RED CELL DISTRIBUTION WIDTH 13.2 % (11.6-14.8); WHITE BLOOD COUNT 11.8 K/UL (4.8-10.8)
[2018-03-17 08:55] LABS: ALANINE AMINOTRANSFERASE 21 U/L (12-78); ALBUMIN 2.5 G/DL (3.4-5.0); ALBUMIN/GLOBULIN RATIO 0.6 (1.0-2.7); ALKALINE PHOSPHATASE 80 U/L (46-116); ANION GAP 6 mmol/L (5-15); ASPARTATE AMINO TRANSFERASE 25 U/L (15-37); BILIRUBIN,TOTAL 0.3 MG/DL (0.2-1.0); BLOOD UREA NITROGEN 17 mg/dL (7-18); CALCIUM 8.1 MG/DL (8.5-10.1); CARBON DIOXIDE 26 MMOL/L (21-32); CHLORIDE 107 MMOL/L (98-107); CREATININE 1.4 MG/DL (0.55-1.30); POTASSIUM 3.3 MMOL/L (3.5-5.1); SODIUM 139 MMOL/L (136-145)
[2018-03-17] MEDS ORDERED: Cefepime HCl 2 GM in D5W 110 ML IV SCH (09:00)
[2018-03-17] MEDS ORDERED: Tubing IV Secondary IV ONE (11:09)
[2018-03-17] MEDS ORDERED: NS 275ml ONE (11:09)
[2018-03-17 12:00] VITALS: BP 125/64
--- NOTE | 2018-03-17 13:48 | History & Physical ---
History and Physical History & Physicial Dictated for Int Med Dr Faria [id number]. Chicho Ring MD Mar 17, 2018 13:48
[2018-03-17] MEDS: Vancomycin 750mg/NS 250ml IVPB SCH (15:15)
--- NOTE | 2018-03-17 15:32 | Consultation ---
History of Present Illness General Date patient seen: Mar 17, 2018 Chief Complaint: Skin Rash/Abscess Present Illness HPI 82 y/o M with hx of cognitive delay, HTN, leg cellulitis w/ multiple abx course presents to ED on 03/16 with increased swelling and erythema of R leg of 1 day duration, more altered than usual, poor appetite afebrile WBC up to 20, now down to 11 Allergies: Coded Allergies: No Known Allergies (Unverified , 06/15/12) Medication History Scheduled Amlodipine Besylate* (Amlodipine Besylate*), 2.5 MG ORAL DAILY, (Reported) Aspirin* (Aspir 81*), 81 MG ORAL DAILY, (Reported) Furosemide* (Lasix*), 40 MG ORAL TWICE A DAY, (Reported) Levothyroxine Sodium* (Levothyroxine Sodium*), 75 MCG ORAL DAILY, (Reported) Potassium Chloride* (K-Dur*), 20 MEQ ORAL TWICE A DAY, (Reported) Trimethoprim/Sulfamethoxazole 160/800* (Bactrim Ds Tablet*), 1 TAB ORAL TWICE A DAY Patient History Healthcare decision maker Resuscitation status Advanced Directive on File Patient History Narrative PMhx: as above: Shx: Denies: smoking, alcohol use, drug use Fhx: non contributory Review of Systems ROS Narrative unable to obtain Physical Exam Physical Exam Narrative General Appearance: other - cognitive delay Head: normocephalic Eyes: bilateral eye normal inspection, bilateral eye PERRL ENT: normal ENT inspection Neck: normal inspection Respiratory: chest non-tender, lungs clear, normal breath sounds, speaking full sentences Cardiovascular #1: regular rate, rhythm, no edema Gastrointestinal: normal inspection Genitourinary: no CVA tenderness Musculoskeletal: swelling - swelling/erythema to RLE Neurologic: other - cognitive delay Psychiatric: other - cognitive delay Skin: normal inspection Last 24 Hour Vital Signs Date Time Temp Pulse Resp B/P (MAP) Pulse Ox O2 Delivery O2 Flow Rate FiO2 03/17/18 12:00 97.7 91 20 125/64 (84) 96 97.7 03/17/18 09:00 Room Air 03/17/18 08:12 87 119/61 03/17/18 08:00 97.3 87 20 119/61 (80) 96 97.3 03/17/18 04:00 98.8 82 20 123/68 (86) 95 98.8 03/17/18 00:00 99.0 77 19 115/57 (76) 95 99.0 03/16/18 21:00 Room Air 03/16/18 20:00 98.7 96 20 105/63 (77) 96 98.7 03/16/18 17:42 Room Air 03/16/18 16:57 98.4 85 17 126/61 100 Room Air 98.4 03/16/18 16:08 98.4 85 17 126/61 100 Room Air 98.4 Intake and Output 03/16/18 03/17/18 19:00 07:00 Intake Total 640 ml 100 ml Output Total 1100 ml 400 ml Balance -460 ml -300 ml Intake Oral 240 ml 100 ml IV Total 400 ml Output Urine Total 1100 ml 400 ml # Voids 1 Laboratory Tests Test 03/16/18 16:30 03/16/18 19:40 03/17/18 06:55 Lactic Acid Level 1.30 mmol/L (0.66-2.22) Urine Color Janis Urine Appearance Slightly cloudy Urine pH 5 (4.5-8.0) Urine Specific [place] 1.020 (1.005-1.035) Urine Protein 2+ (NEGATIVE) H Urine Glucose (UA) Negative (NEGATIVE) Urine Ketones Negative (NEGATIVE) Urine Occult Blood 2+ (NEGATIVE) H Urine Nitrite Negative (NEGATIVE) Urine Bilirubin Negative (NEGATIVE) Urine Ictotest Negative Urine Urobilinogen Normal MG/DL (0.0-1.0) Urine Leukocyte Esterase 2+ (NEGATIVE) H Urine RBC 5-10 /HPF (0 - 0) H Urine WBC 15-20 /HPF (0 - 0) H Urine Squamous Epithelial Cells Occasional /LPF Urine Bacteria Moderate /HPF (NONE) H Urine Mucus Few /LPF (NONE/OCC) H Urine Eosinophils None seen Urine Random Sodium 51 mmol/L (20-110) Urine Potassium Timed 78 mmol/L (12-62) H White Blood Count 11.8 K/UL (4.8-10.8) H Red Blood Count 3.74 M/UL (4.70-6.10) L Hemoglobin 10.1 G/DL (14.2-18.0) L Hematocrit 30.7 % (42.0-52.0) L Mean Corpuscular Volume 82 FL (80-99) Mean Corpuscular Hemoglobin 26.9 PG (27.0-31.0) L Mean Corpuscular Hemoglobin Concent 32.8 G/DL (32.0-36.0) Red Cell Distribution Width 13.2 % (11.6-14.8) Platelet Count 157 K/UL (150-450) Mean Platelet Volume 8.0 FL (6.5-10.1) Neutrophils (%) (Auto) 79.9 % (45.0-75.0) H Lymphocytes (%) (Auto) 7.6 % (20.0-45.0) L Monocytes (%) (Auto) 12.0 % (1.0-10.0) H Eosinophils (%) (Auto) 0.2 % (0.0-3.0) Basophils (%) (Auto) 0.4 % (0.0-2.0) Sodium Level 139 MMOL/L (136-145) Potassium Level 3.3 MMOL/L (3.5-5.1) L Chloride Level 107 MMOL/L (98-107) Carbon Dioxide Level 26 MMOL/L (21-32) Anion Gap 6 mmol/L (5-15) Blood Urea Nitrogen 17 mg/dL (7-18) Creatinine 1.4 MG/DL (0.55-1.30) H Estimat Glomerular Filtration Rate mL/min (>60) Glucose Level 82 MG/DL (74-106) Calcium Level 8.1 MG/DL (8.5-10.1) L Total Bilirubin 0.3 MG/DL (0.2-1.0) Aspartate Amino Transf (AST/SGOT) 25 U/L (15-37) Alanine Aminotransferase (ALT/SGPT) 21 U/L (12-78) Alkaline Phosphatase 80 U/L (46-116) Total Protein 6.7 G/DL (6.4-8.2) Albumin 2.5 G/DL (3.4-5.0) L Globulin 4.2 g/dL Albumin/Globulin Ratio 0.6 (1.0-2.7) L Microbiology Date/Time Source Procedure Growth Status 03/16/18 19:40 Urine,Clean Catch Urine Culture - Preliminary Resulted Height (Feet): 5 Height (Inches): 4.00 Weight (Pounds): 180 Medications Current Medications Medications (Trade) Dose Ordered Sig/Brian Route PRN Reason Start Time Stop Time Status Last Admin Dose Admin Acetaminophen (Tylenol) 650 mg Q4H PRN ORAL T>100.5 03/16/18 12:45 04/15/18 12:44 Albuterol/ Ipratropium (Albuterol/ Ipratropium) 3 ml Q4H PRN HHN Shortness of Breath 03/16/18 12:45 03/21/18 12:44 Amlodipine Besylate (Norvasc) 2.5 mg DAILY ORAL 03/17/18 09:00 04/16/18 08:59 03/17/18 08:12 Cefepime HCl 2 gm/ Dextrose 110 ml @ 220 mls/hr Q24H IV 03/16/18 20:00 03/23/18 19:59 03/16/18 19:40 Dextrose (Dextrose 50%) 25 ml PRN IV Hypoglycemia 03/16/18 13:00 04/15/18 12:59 Dextrose (Dextrose 50%) 50 ml PRN IV hypoglycemia 03/16/18 13:00 04/15/18 12:59 Furosemide (Lasix) 40 mg TWICE A DAY ORAL 03/16/18 18:00 04/15/18 17:59 03/17/18 08:13 Heparin Sodium (Porcine) (Heparin 5000 units/ml) 5,000 units EVERY 12 HOURS SUBQ 03/16/18 21:00 04/15/18 20:59 03/17/18 08:13 Iopamidol (Isovue-300 100ml) 100 ml NOW PRN INJ Radiology Procedure 03/16/18 11:30 03/18/18 11:28 Levothyroxine Sodium (Synthroid) 75 mcg DAILY ORAL 03/17/18 09:00 04/16/18 08:59 03/17/18 08:12 Morphine Sulfate (Morphine Sulfate) 2 mg Q4H PRN IVP PAIN 4-10 03/16/18 12:45 03/23/18 12:44 Nitroglycerin (Ntg) 0.4 mg Q5MIN X 3 DOSES PRN SL Prn Chest Pain 03/16/18 13:00 04/15/18 12:59 Ondansetron HCl (Zofran) 4 mg Q6H PRN IVP Nausea & Vomiting 03/16/18 12:45 04/15/18 12:44 Polyethylene Glycol (Miralax) 17 gm DAILYPRN PRN ORAL Constipation 03/16/18 12:45 04/15/18 12:44 Potassium Chloride (K-Dur) 20 meq TWICE A DAY ORAL 03/16/18 18:00 04/15/18 17:59 03/17/18 08:12 Temazepam (Restoril) 15 mg HSPRN PRN ORAL Insomnia 03/16/18 21:00 03/23/18 20:59 Vancomycin HCl (Vanco rx to dose) 1 ea DAILY PRN MISC rx per protocol 03/16/18 14:00 04/15/18 13:59 Vancomycin/Sodium Chloride 250 ml @ 166.667 mls/hr Q24H IVPB 03/17/18 15:00 03/22/18 14:59 Assessment/Plan Assessment/Plan Abx: IV Vanco 03/16- Cefepime 03/16- Assessment: R leg cellulitis R/o UTI -u/a wbc 15-20, nit neg, leuk +2; ucx p Leukocytosis, improving -CXR: Suspected right perihilar mass. CT is advised. Vascular congestion. Possible lingular infiltrate. -CT chest: Cardiomegaly. No pulmonary edema. No acute infiltrate. -afebrile -Bcx p cognitive delay HTN hx of leg cellulitis w/ multiple abx course Plan: -Conitnue IV Vancomycin #2 for cellulitis -Contnue CEfepime #2 pending urine culture -f/u cx -monitor CBC/CMP temperatures -aspiration precautions Thank you for this consultation. Will continue to follow along with you. Joycelyn Escobar M.D. Mar 17, 2018 15:32
[2018-03-17 15:48] VITALS: BP 126/68
--- NOTE | 2018-03-17 18:11 | Pulmonology Progress Note ---
Assessment/Plan Problems: (1) Sepsis (2) Cellulitis (3) Acute encephalopathy (4) Hypothyroidism (5) HTN (hypertension) Assessment/Plan improving respiratory treatment f/u cultures dvt prophylaxis check electrolytes Subjective ROS Limited/Unobtainable: No Constitutional: Reports: no symptoms HEENT: Repors: no symptoms Respiratory: Reports: no symptoms Allergies: Coded Allergies: No Known Allergies (Unverified , 06/15/12) Objective Last 24 Hour Vital Signs Date Time Temp Pulse Resp B/P (MAP) Pulse Ox O2 Delivery O2 Flow Rate FiO2 03/17/18 15:48 98.0 100 18 126/68 (87) 97 98.0 03/17/18 12:00 97.7 91 20 125/64 (84) 96 97.7 03/17/18 09:00 Room Air 03/17/18 08:12 87 119/61 03/17/18 08:00 97.3 87 20 119/61 (80) 96 97.3 03/17/18 04:00 98.8 82 20 123/68 (86) 95 98.8 03/17/18 00:00 99.0 77 19 115/57 (76) 95 99.0 03/16/18 21:00 Room Air 03/16/18 20:00 98.7 96 20 105/63 (77) 96 98.7 Intake and Output 03/16/18 03/17/18 19:00 07:00 Intake Total 640 ml 100 ml Output Total 1100 ml 400 ml Balance -460 ml -300 ml Intake Oral 240 ml 100 ml IV Total 400 ml Output Urine Total 1100 ml 400 ml # Voids 1 General Appearance: WD/WN HEENT: normocephalic Respiratory/Chest: chest wall non-tender, lungs clear Cardiovascular: normal peripheral pulses, normal rate Abdomen: normal bowel sounds, soft, non tender Genitourinary: normal external genitalia Extremities: no clubbing 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 Microbiology Date/Time Source Procedure Growth Status 03/16/18 19:40 Urine,Clean Catch Urine Culture - Preliminary Resulted Laboratory Tests 03/16/18 19:40: Urine Color Janis, Urine Appearance Slightly cloudy, Urine pH 5, Urine Specific [place] 1.020, Urine Protein 2+H, Urine Glucose (UA) Negative, Urine Ketones Negative, Urine Occult Blood 2+H, Urine Nitrite Negative, Urine Bilirubin Negative, Urine Ictotest Negative, Urine Urobilinogen Normal, Urine Leukocyte Esterase 2+H, Urine RBC 5-10H, Urine WBC 15-20H, Urine Squamous Epithelial Cells Occasional, Urine Bacteria ModerateH, Urine Mucus FewH, Urine Eosinophils None seen, Urine Random Sodium 51, Urine Potassium Timed 78H 03/17/18 06:55: White Blood Count 11.8H, Red Blood Count 3.74L, Hemoglobin 10.1L, Hematocrit 30.7L, Mean Corpuscular Volume 82, Mean Corpuscular Hemoglobin 26.9L, Mean Corpuscular Hemoglobin Concent 32.8, Red Cell Distribution Width 13.2, Platelet Count 157, Mean Platelet Volume 8.0, Neutrophils (%) (Auto) 79.9H, Lymphocytes ( %) (Auto) 7.6L, Monocytes (%) (Auto) 12.0H, Eosinophils (%) (Auto) 0.2, Basophils (%) (Auto) 0.4, Sodium Level 139, Potassium Level 3.3L, Chloride Level 107, Carbon Dioxide Level 26, Anion Gap 6, Blood Urea Nitrogen 17, Creatinine 1.4H, Estimat Glomerular Filtration Rate , Glucose Level 82, Calcium Level 8.1L, Total Bilirubin 0.3, Aspartate Amino Transf (AST/SGOT) 25, Alanine Aminotransferase (ALT/SGPT) 21, Alkaline Phosphatase 80, Total Protein 6.7, Albumin 2.5L, Globulin 4.2, Albumin/Globulin Ratio 0.6L Current Medications Medications (Trade) Dose Ordered Sig/Brian Route PRN Reason Start Time Stop Time Status Last Admin Dose Admin Acetaminophen (Tylenol) 650 mg Q4H PRN ORAL T>100.5 03/16/18 12:45 04/15/18 12:44 Albuterol/ Ipratropium (Albuterol/ Ipratropium) 3 ml Q4H PRN HHN Shortness of Breath 03/16/18 12:45 03/21/18 12:44 Amlodipine Besylate (Norvasc) 2.5 mg DAILY ORAL 03/17/18 09:00 04/16/18 08:59 03/17/18 08:12 Cefepime HCl 2 gm/ Dextrose 110 ml @ 220 mls/hr Q24H IV 03/16/18 20:00 03/23/18 19:59 03/16/18 19:40 Dextrose (Dextrose 50%) 25 ml PRN IV Hypoglycemia 03/16/18 13:00 04/15/18 12:59 Dextrose (Dextrose 50%) 50 ml PRN IV hypoglycemia 03/16/18 13:00 04/15/18 12:59 Furosemide (Lasix) 40 mg TWICE A DAY ORAL 03/16/18 18:00 04/15/18 17:59 03/17/18 17:48 Heparin Sodium (Porcine) (Heparin 5000 units/ml) 5,000 units EVERY 12 HOURS SUBQ 03/16/18 21:00 04/15/18 20:59 03/17/18 08:13 Iopamidol (Isovue-300 100ml) 100 ml NOW PRN INJ Radiology Procedure 03/16/18 11:30 03/18/18 11:28 Levothyroxine Sodium (Synthroid) 75 mcg DAILY ORAL 03/17/18 09:00 04/16/18 08:59 03/17/18 08:12 Morphine Sulfate (Morphine Sulfate) 2 mg Q4H PRN IVP PAIN 4-10 03/16/18 12:45 03/23/18 12:44 Nitroglycerin (Ntg) 0.4 mg Q5MIN X 3 DOSES PRN SL Prn Chest Pain 03/16/18 13:00 04/15/18 12:59 Ondansetron HCl (Zofran) 4 mg Q6H PRN IVP Nausea & Vomiting 03/16/18 12:45 04/15/18 12:44 Polyethylene Glycol (Miralax) 17 gm DAILYPRN PRN ORAL Constipation 03/16/18 12:45 04/15/18 12:44 Potassium Chloride (K-Dur) 20 meq TWICE A DAY ORAL 03/16/18 18:00 04/15/18 17:59 03/17/18 17:49 Temazepam (Restoril) 15 mg HSPRN PRN ORAL Insomnia 03/16/18 21:00 03/23/18 20:59 Vancomycin HCl (Vanco rx to dose) 1 ea DAILY PRN MISC rx per protocol 03/16/18 14:00 04/15/18 13:59 Vancomycin/Sodium Chloride 250 ml @ 166.667 mls/hr Q24H IVPB 03/17/18 15:00 03/22/18 14:59 03/17/18 15:15 Yolanda Lazcano MD Mar 17, 2018 18:11
--- NOTE | 2018-03-17 18:37 | Cardiology Report ---
APPROVED REPORT EKG Measurement Heart [id number] Sinus rhythm with 1st degree AV block Otherwise normal ECG
[2018-03-17 20:00] VITALS: BP 123/63
[2018-03-17] MEDS: Cefepime HCl 2 GM in D5W 110 ML IV SCH (20:23)
--- NOTE | 2018-03-17 21:30 | History and Physical Report ---
DATE OF ADMISSION: 03/16/2018 CHIEF COMPLAINT: The patient is an 82-year-old white male, who presents with chief complaint of pain and swelling of the right leg. HISTORY OF PRESENT ILLNESS: The patient himself is unable to contribute much to the history and physical. Much of the history and physical is obtained from the patient's chart and the patient's caregiver. According to the patient's caregiver, the patient began experiencing increased pain and swelling of the right leg. This began one day ago. The patient denies fevers or chills. The patient presented to [facility]. The patient was found to have swollen and erythematous right leg. The patient is admitted for cellulitis of the right leg. REVIEW OF SYSTEMS: Unable to assess secondary to the patient's mental status. PAST MEDICAL HISTORY: Significant for: 1. Hypertension. 2. Hypothyroidism. PAST SURGICAL HISTORY: The patient denies. CURRENT MEDICATIONS: 1. Amlodipine 2.5 mg p.o. daily. 2. Aspirin 81 mg p.o. daily. 3. Lasix 40 mg p.o. twice daily. 4. Levoxyl 75 mcg one tablet p.o. daily. 5. Potassium chloride 20 mEq p.o. twice daily. ALLERGIES: No known drug allergies. SOCIAL HISTORY: The patient is a resident of [facility]. The patient denies tobacco or alcohol use. PHYSICAL EXAMINATION: VITAL SIGNS: Temperature 99.0 degrees, respirations 19, pulse 77, and blood pressure 116/57. GENERAL: The patient is a well-developed and well-nourished white male, in no apparent distress. HEENT: Eyes, pupils equal and responsive to light and accommodation. Extraocular movements are intact. NECK: Supple without lymphadenopathy. CHEST: Lungs are clear to auscultation bilaterally without wheezes or rales. CARDIOVASCULAR: Regular rhythm and rate. S1 and S2 are normal without murmurs, rubs, or gallops. ABDOMEN: Soft, nontender, and nondistended. Positive bowel sounds. No evidence of hepatosplenomegaly. Currently, no rebound or guarding noted. EXTREMITIES: Right leg has punctate red rash on the lateral surface, otherwise without clubbing, cyanosis, or edema. RECTAL: Refused. GENITAL: Refused. NEUROLOGIC: Cranial nerves II through XII are grossly intact without focal deficits. Motor strength is 5/5 bilaterally intact. Deep tendon reflexes are 2+, plantar. LABORATORY AND DIAGNOSTIC DATA: Laboratory studies, WBC 20.8, hemoglobin 11.8, hematocrit 37.4, and platelets 191,000. Sodium 136, potassium 3.9, chloride 103, CO2 25, BUN 19, creatinine 1.5, and glucose 141. Lactic acid 2.9. Urinalysis showed 2+ occult blood with 2-4 rbc's and 0-2 wbc's. ASSESSMENT: This is an 82-year-old white male with: 1. Pain of the right leg. 2. Cellulitis of the right leg. 3. Leukocytosis. 4. Hypertension. 5. Hypothyroidism. TREATMENT: 1. Cellulitis/pain of the right leg. The patient has been started empirically on intravenous vancomycin and cefepime. Blood and urine cultures are pending. 2. Leukocytosis secondary to cellulitis above. 3. Hypertension. Continue amlodipine as above. 4. Hypothyroidism. Continue Levoxyl as above. Chicho Ring M.D. DR: CAITLIN JOB#: [id number] CC:
[2018-03-18 00:08] VITALS: BP 120/65
[2018-03-18 04:15] VITALS: BP 145/83
[2018-03-18 07:37] LABS: EOSINOPHILS % (AUTO) 2.6 % (0.0-3.0); HEMATOCRIT 32.9 % (42.0-52.0); HEMOGLOBIN 10.4 G/DL (14.2-18.0); LYMPHOCYTES % (AUTO) 11.6 % (20.0-45.0); MEAN CORPUSCULAR VOLUME 82 FL (80-99); MONOCYTES % (AUTO) 11.9 % (1.0-10.0); NEUTROPHILS % (AUTO) 72.8 % (45.0-75.0); PLATELET COUNT 167 K/UL (150-450); RED BLOOD COUNT 4.02 M/UL (4.70-6.10); RED CELL DISTRIBUTION WIDTH 12.9 % (11.6-14.8); WHITE BLOOD COUNT 9.7 K/UL (4.8-10.8)
[2018-03-18 07:58] LABS: ANION GAP 8 mmol/L (5-15); BLOOD UREA NITROGEN 18 mg/dL (7-18); CALCIUM 8.2 MG/DL (8.5-10.1); CARBON DIOXIDE 28 MMOL/L (21-32); CHLORIDE 109 MMOL/L (98-107); CREATININE 1.5 MG/DL (0.55-1.30); POTASSIUM 3.3 MMOL/L (3.5-5.1); SODIUM 145 MMOL/L (136-145)
[2018-03-18 08:00] VITALS: BP 127/65
--- NOTE | 2018-03-18 10:41 | Internal Med Progress Note ---
Subjective Date of Service: Mar 18, 2018 Physician Name Chicho Ring Attending Physician Librado Faria MD Current Medications Medications (Trade) Dose Ordered Sig/Brian Route PRN Reason Start Time Stop Time Status Last Admin Dose Admin Acetaminophen (Tylenol) 650 mg Q4H PRN ORAL T>100.5 03/16/18 12:45 04/15/18 12:44 Albuterol/ Ipratropium (Albuterol/ Ipratropium) 3 ml Q4H PRN HHN Shortness of Breath 03/16/18 12:45 03/21/18 12:44 Amlodipine Besylate (Norvasc) 2.5 mg DAILY ORAL 03/17/18 09:00 04/16/18 08:59 03/17/18 08:12 Cefepime HCl 2 gm/ Dextrose 110 ml @ 220 mls/hr Q24H IV 03/16/18 20:00 03/23/18 19:59 03/17/18 20:23 Dextrose (Dextrose 50%) 25 ml PRN IV Hypoglycemia 03/16/18 13:00 04/15/18 12:59 Dextrose (Dextrose 50%) 50 ml PRN IV hypoglycemia 03/16/18 13:00 04/15/18 12:59 Furosemide (Lasix) 40 mg TWICE A DAY ORAL 03/16/18 18:00 04/15/18 17:59 03/17/18 17:48 Heparin Sodium (Porcine) (Heparin 5000 units/ml) 5,000 units EVERY 12 HOURS SUBQ 03/16/18 21:00 04/15/18 20:59 03/17/18 20:24 Iopamidol (Isovue-300 100ml) 100 ml NOW PRN INJ Radiology Procedure 03/16/18 11:30 03/18/18 11:28 Levothyroxine Sodium (Synthroid) 75 mcg DAILY ORAL 03/17/18 09:00 04/16/18 08:59 03/17/18 08:12 Morphine Sulfate (Morphine Sulfate) 2 mg Q4H PRN IVP PAIN 4-10 03/16/18 12:45 03/23/18 12:44 Nitroglycerin (Ntg) 0.4 mg Q5MIN X 3 DOSES PRN SL Prn Chest Pain 03/16/18 13:00 04/15/18 12:59 Ondansetron HCl (Zofran) 4 mg Q6H PRN IVP Nausea & Vomiting 03/16/18 12:45 04/15/18 12:44 Polyethylene Glycol (Miralax) 17 gm DAILYPRN PRN ORAL Constipation 03/16/18 12:45 04/15/18 12:44 Potassium Chloride (K-Dur) 20 meq TWICE A DAY ORAL 03/16/18 18:00 04/15/18 17:59 03/17/18 17:49 Temazepam (Restoril) 15 mg HSPRN PRN ORAL Insomnia 03/16/18 21:00 03/23/18 20:59 Vancomycin HCl (Vanco rx to dose) 1 ea DAILY PRN MISC rx per protocol 03/16/18 14:00 04/15/18 13:59 Vancomycin/Sodium Chloride 250 ml @ 166.667 mls/hr Q24H IVPB 03/17/18 15:00 03/22/18 14:59 03/17/18 15:15 Allergies: Coded Allergies: No Known Allergies (Unverified , 06/15/12) ROS Limited/Unobtainable: No Constitutional: Reports: no symptoms HEENT: Reports: no symptoms Cardiovascular: Reports: no symptoms Respiratory: Reports: no symptoms Gastrointestinal/Abdominal: Reports: no symptoms Genitourinary: Reports: no symptoms Neurologic/Psychiatric: Reports: no symptoms Subjective 82 YO M admitted with pain/swelling right leg. Now cellulitis right leg. Cover for Int Jaswinder-Dr aFria Objective Last Vital Signs Date Time Temp Pulse Resp B/P (MAP) Pulse Ox O2 Delivery O2 Flow Rate FiO2 03/18/18 04:15 98.3 92 18 145/83 (103) 95 98.3 03/17/18 22:37 Room Air General Appearance: WD/WN, no apparent distress, alert EENT: PERRL/EOMI, normal ENT inspection Neck: non-tender, normal alignment, supple, normal inspection Cardiovascular: normal peripheral pulses, normal rate, regular rhythm, no gallop/murmur, no JVD Respiratory/Chest: chest wall non-tender, lungs clear, normal breath sounds, no respiratory distress, no accessory muscle use Abdomen: normal bowel sounds, non tender, soft, no organomegaly, no mass Extremities: normal range of motion, non-tender Edema: trace edema 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, no motor/sensory deficits Skin: warm/dry, other - erythema right leg Laboratory Tests Test 03/18/18 05:20 White Blood Count 9.7 K/UL (4.8-10.8) Red Blood Count 4.02 M/UL (4.70-6.10) L Hemoglobin 10.4 G/DL (14.2-18.0) L Hematocrit 32.9 % (42.0-52.0) L Mean Corpuscular Volume 82 FL (80-99) Mean Corpuscular Hemoglobin 26.0 PG (27.0-31.0) L Mean Corpuscular Hemoglobin Concent 31.7 G/DL (32.0-36.0) L Red Cell Distribution Width 12.9 % (11.6-14.8) Platelet Count 167 K/UL (150-450) Mean Platelet Volume 7.6 FL (6.5-10.1) Neutrophils (%) (Auto) 72.8 % (45.0-75.0) Lymphocytes (%) (Auto) 11.6 % (20.0-45.0) L Monocytes (%) (Auto) 11.9 % (1.0-10.0) H Eosinophils (%) (Auto) 2.6 % (0.0-3.0) Basophils (%) (Auto) 1.0 % (0.0-2.0) Sodium Level 145 MMOL/L (136-145) Potassium Level 3.3 MMOL/L (3.5-5.1) L Chloride Level 109 MMOL/L (98-107) H Carbon Dioxide Level 28 MMOL/L (21-32) Anion Gap 8 mmol/L (5-15) Blood Urea Nitrogen 18 mg/dL (7-18) Creatinine 1.5 MG/DL (0.55-1.30) H Estimat Glomerular Filtration Rate mL/min (>60) Glucose Level 83 MG/DL (74-106) Calcium Level 8.2 MG/DL (8.5-10.1) L Microbiology Date/Time Source Procedure Growth Status 03/16/18 10:12 Blood Blood Culture - Preliminary NO GROWTH AFTER 24 HOURS Resulted 03/16/18 10:02 Blood Blood Culture - Preliminary NO GROWTH AFTER 24 HOURS Resulted 03/16/18 19:40 Urine,Clean Catch Urine Culture - Preliminary NO GROWTH AFTER 24 HOURS Resulted Intake and Output 03/17/18 03/18/18 19:00 07:00 Intake Total 110 ml Output Total 1200 ml 1400 ml Balance -1200 ml -1290 ml IV Total 110 ml Output Urine Total 1200 ml 1400 ml # Voids 2 Assessment/Plan Problem List: (1) HTN (hypertension) Assessment & Plan: Continue norvasc (2) Cellulitis of leg, right Assessment & Plan: Continue vanco and cefepime (3) Pain in right leg (4) Leukocytosis (5) UTI (lower urinary tract infection) Assessment & Plan: Continue vanco and cefepime (6) Hypothyroidism Assessment & Plan: Continue levoxyl Status: progressing Chicho Ring MD Mar 18, 2018 10:41
[2018-03-18] MEDS: Furosemide 40mg tab ORAL SCH ×2 (11:08→19:05)
[2018-03-18] MEDS: Heparin 5000 units/ml inj SUBQ SCH ×2 (11:12→22:00)
[2018-03-18 12:00] VITALS: BP 129/67
--- NOTE | 2018-03-18 12:07 | Consultation ---
History of Present Illness General Date patient seen: Mar 18, 2018 Chief Complaint: Skin Rash/Abscess Present Illness HPI 82-year-old white male, who presents with chief complaint of pain and swelling of the right leg. The pt is pw waxing and waning of consciousness and not engaged. the pt is not talking. and has impairment of cognition Allergies: Coded Allergies: No Known Allergies (Unverified , 06/15/12) Medication History Scheduled Amlodipine Besylate* (Amlodipine Besylate*), 2.5 MG ORAL DAILY, (Reported) Aspirin* (Aspir 81*), 81 MG ORAL DAILY, (Reported) Furosemide* (Lasix*), 40 MG ORAL TWICE A DAY, (Reported) Levothyroxine Sodium* (Levothyroxine Sodium*), 75 MCG ORAL DAILY, (Reported) Potassium Chloride* (K-Dur*), 20 MEQ ORAL TWICE A DAY, (Reported) Trimethoprim/Sulfamethoxazole 160/800* (Bactrim Ds Tablet*), 1 TAB ORAL TWICE A DAY Patient History Limited by: medical condition History Provided By: Patient, Medical Record, PMD Healthcare decision maker Resuscitation status Advanced Directive on File Past Medical/Surgical History Past Medical/Surgical History: (1) Tachycardia (2) Sepsis (3) Developmental delay (4) Cellulitis of lower extremity (5) Renal insufficiency (6) Leukocytosis (7) HTN (hypertension) (8) Cellulitis of leg, right (9) Pain in right leg (10) UTI (lower urinary tract infection) (11) Hypothyroidism (12) Acute encephalopathy (13) Cellulitis Review of Systems Psychiatric: Reports: prior hx, anxiety, emotional problems Physical Exam General Appearance: no apparent distress, alert, confused Last 24 Hour Vital Signs Date Time Temp Pulse Resp B/P (MAP) Pulse Ox O2 Delivery O2 Flow Rate FiO2 03/18/18 11:11 85 129/67 03/18/18 08:00 97.9 90 18 127/65 (85) 95 97.9 03/18/18 04:15 98.3 92 18 145/83 (103) 95 98.3 03/18/18 00:08 98.9 101 18 120/65 (83) 95 98.9 03/17/18 22:37 Room Air 03/17/18 20:00 99.4 98 18 123/63 (83) 94 99.4 03/17/18 15:48 98.0 100 18 126/68 (87) 97 98.0 Intake and Output 03/17/18 03/18/18 19:00 07:00 Intake Total 110 ml Output Total 1200 ml 1400 ml Balance -1200 ml -1290 ml IV Total 110 ml Output Urine Total 1200 ml 1400 ml # Voids 2 Laboratory Tests Test 03/18/18 05:20 White Blood Count 9.7 K/UL (4.8-10.8) Red Blood Count 4.02 M/UL (4.70-6.10) L Hemoglobin 10.4 G/DL (14.2-18.0) L Hematocrit 32.9 % (42.0-52.0) L Mean Corpuscular Volume 82 FL (80-99) Mean Corpuscular Hemoglobin 26.0 PG (27.0-31.0) L Mean Corpuscular Hemoglobin Concent 31.7 G/DL (32.0-36.0) L Red Cell Distribution Width 12.9 % (11.6-14.8) Platelet Count 167 K/UL (150-450) Mean Platelet Volume 7.6 FL (6.5-10.1) Neutrophils (%) (Auto) 72.8 % (45.0-75.0) Lymphocytes (%) (Auto) 11.6 % (20.0-45.0) L Monocytes (%) (Auto) 11.9 % (1.0-10.0) H Eosinophils (%) (Auto) 2.6 % (0.0-3.0) Basophils (%) (Auto) 1.0 % (0.0-2.0) Sodium Level 145 MMOL/L (136-145) Potassium Level 3.3 MMOL/L (3.5-5.1) L Chloride Level 109 MMOL/L (98-107) H Carbon Dioxide Level 28 MMOL/L (21-32) Anion Gap 8 mmol/L (5-15) Blood Urea Nitrogen 18 mg/dL (7-18) Creatinine 1.5 MG/DL (0.55-1.30) H Estimat Glomerular Filtration Rate mL/min (>60) Glucose Level 83 MG/DL (74-106) Calcium Level 8.2 MG/DL (8.5-10.1) L Height (Feet): 5 Height (Inches): 4.00 Weight (Pounds): 180 Medications Current Medications Medications (Trade) Dose Ordered Sig/Brian Route PRN Reason Start Time Stop Time Status Last Admin Dose Admin Acetaminophen (Tylenol) 650 mg Q4H PRN ORAL T>100.5 03/16/18 12:45 04/15/18 12:44 Albuterol/ Ipratropium (Albuterol/ Ipratropium) 3 ml Q4H PRN HHN Shortness of Breath 03/16/18 12:45 03/21/18 12:44 Amlodipine Besylate (Norvasc) 2.5 mg DAILY ORAL 03/17/18 09:00 04/16/18 08:59 03/18/18 11:11 Cefepime HCl 2 gm/ Dextrose 110 ml @ 220 mls/hr Q24H IV 03/16/18 20:00 03/23/18 19:59 03/17/18 20:23 Dextrose (Dextrose 50%) 25 ml PRN IV Hypoglycemia 03/16/18 13:00 04/15/18 12:59 Dextrose (Dextrose 50%) 50 ml PRN IV hypoglycemia 03/16/18 13:00 04/15/18 12:59 Furosemide (Lasix) 40 mg TWICE A DAY ORAL 03/16/18 18:00 04/15/18 17:59 03/18/18 11:08 Heparin Sodium (Porcine) (Heparin 5000 units/ml) 5,000 units EVERY 12 HOURS SUBQ 03/16/18 21:00 04/15/18 20:59 03/18/18 11:12 Levothyroxine Sodium (Synthroid) 75 mcg DAILY ORAL 03/17/18 09:00 04/16/18 08:59 03/18/18 11:08 Morphine Sulfate (Morphine Sulfate) 2 mg Q4H PRN IVP PAIN 4-10 03/16/18 12:45 03/23/18 12:44 Nitroglycerin (Ntg) 0.4 mg Q5MIN X 3 DOSES PRN SL Prn Chest Pain 03/16/18 13:00 04/15/18 12:59 Ondansetron HCl (Zofran) 4 mg Q6H PRN IVP Nausea & Vomiting 03/16/18 12:45 04/15/18 12:44 Polyethylene Glycol (Miralax) 17 gm DAILYPRN PRN ORAL Constipation 03/16/18 12:45 04/15/18 12:44 Potassium Chloride (K-Dur) 20 meq TWICE A DAY ORAL 03/16/18 18:00 04/15/18 17:59 03/18/18 11:08 Potassium Chloride (K-Dur) 40 meq ONCE ONCE ORAL 03/18/18 12:00 03/18/18 12:01 Temazepam (Restoril) 15 mg HSPRN PRN ORAL Insomnia 03/16/18 21:00 03/23/18 20:59 Vancomycin HCl (Vanco rx to dose) 1 ea DAILY PRN MISC rx per protocol 03/16/18 14:00 04/15/18 13:59 Vancomycin/Sodium Chloride 250 ml @ 166.667 mls/hr Q24H IVPB 03/17/18 15:00 03/22/18 14:59 03/17/18 15:15 Assessment/Plan Assessment/Plan Dementia encephalopathy -seroquel prn Loulou Gutierrez MD Mar 18, 2018 12:07
--- NOTE | 2018-03-18 12:57 | Infectious Diseases Prog Note ---
Assessment/Plan Assessment/Plan Abx: IV Vanco 03/16- Cefepime 03/16- Assessment: R leg cellulitis; improving R/o UTI -u/a wbc 15-20, nit neg, leuk +2; ucx NTD Leukocytosis, resolved -CXR: Suspected right perihilar mass. CT is advised. Vascular congestion. Possible lingular infiltrate. -CT chest: Cardiomegaly. No pulmonary edema. No acute infiltrate. -afebrile -Bcx NTD cognitive delay HTN hx of leg cellulitis w/ multiple abx course Plan: -Conitnue IV Vancomycin #3/ for cellulitis -Contnue CEfepime #3 pending urine culture -expect switching to PO abx upon discharge pending cultures -f/u cx -monitor CBC/CMP temperatures -aspiration precautions Thank you for this consultation. Will continue to follow along with you. Subjective Allergies: Coded Allergies: No Known Allergies (Unverified , 06/15/12) Subjective afebrile leukocytosis resolved Ucx and Bcx NTD Objective Vital Signs Last 24 Hour Vital Signs Date Time Temp Pulse Resp B/P (MAP) Pulse Ox O2 Delivery O2 Flow Rate FiO2 03/18/18 12:00 99.6 85 18 129/67 (87) 99.6 03/18/18 11:11 85 129/67 03/18/18 09:00 Room Air 03/18/18 08:00 97.9 90 18 127/65 (85) 95 97.9 03/18/18 04:15 98.3 92 18 145/83 (103) 95 98.3 03/18/18 00:08 98.9 101 18 120/65 (83) 95 98.9 03/17/18 22:37 Room Air 03/17/18 20:00 99.4 98 18 123/63 (83) 94 99.4 03/17/18 15:48 98.0 100 18 126/68 (87) 97 98.0 Height (Feet): 5 Height (Inches): 4.00 Weight (Pounds): 180 Objective General Appearance: other - cognitive delay Head: normocephalic Eyes: bilateral eye normal inspection, bilateral eye PERRL ENT: normal ENT inspection Neck: normal inspection Respiratory: chest non-tender, lungs clear, normal breath sounds, speaking full sentences Cardiovascular #1: regular rate, rhythm, no edema Gastrointestinal: normal inspection Genitourinary: no CVA tenderness Musculoskeletal: swelling - swelling/erythema to RLE Skin: no rash Microbiology Date/Time Source Procedure Growth Status 03/16/18 10:12 Blood Blood Culture - Preliminary NO GROWTH AFTER 24 HOURS Resulted 03/16/18 10:02 Blood Blood Culture - Preliminary NO GROWTH AFTER 24 HOURS Resulted 03/16/18 19:40 Urine,Clean Catch Urine Culture - Preliminary NO GROWTH AFTER 24 HOURS Resulted Laboratory Tests Test 03/18/18 05:20 White Blood Count 9.7 K/UL (4.8-10.8) Red Blood Count 4.02 M/UL (4.70-6.10) L Hemoglobin 10.4 G/DL (14.2-18.0) L Hematocrit 32.9 % (42.0-52.0) L Mean Corpuscular Volume 82 FL (80-99) Mean Corpuscular Hemoglobin 26.0 PG (27.0-31.0) L Mean Corpuscular Hemoglobin Concent 31.7 G/DL (32.0-36.0) L Red Cell Distribution Width 12.9 % (11.6-14.8) Platelet Count 167 K/UL (150-450) Mean Platelet Volume 7.6 FL (6.5-10.1) Neutrophils (%) (Auto) 72.8 % (45.0-75.0) Lymphocytes (%) (Auto) 11.6 % (20.0-45.0) L Monocytes (%) (Auto) 11.9 % (1.0-10.0) H Eosinophils (%) (Auto) 2.6 % (0.0-3.0) Basophils (%) (Auto) 1.0 % (0.0-2.0) Sodium Level 145 MMOL/L (136-145) Potassium Level 3.3 MMOL/L (3.5-5.1) L Chloride Level 109 MMOL/L (98-107) H Carbon Dioxide Level 28 MMOL/L (21-32) Anion Gap 8 mmol/L (5-15) Blood Urea Nitrogen 18 mg/dL (7-18) Creatinine 1.5 MG/DL (0.55-1.30) H Estimat Glomerular Filtration Rate mL/min (>60) Glucose Level 83 MG/DL (74-106) Calcium Level 8.2 MG/DL (8.5-10.1) L Current Medications Medications (Trade) Dose Ordered Sig/Brian Route PRN Reason Start Time Stop Time Status Last Admin Dose Admin Acetaminophen (Tylenol) 650 mg Q4H PRN ORAL T>100.5 03/16/18 12:45 04/15/18 12:44 Albuterol/ Ipratropium (Albuterol/ Ipratropium) 3 ml Q4H PRN HHN Shortness of Breath 03/16/18 12:45 03/21/18 12:44 Amlodipine Besylate (Norvasc) 2.5 mg DAILY ORAL 03/17/18 09:00 04/16/18 08:59 03/18/18 11:11 Cefepime HCl 2 gm/ Dextrose 110 ml @ 220 mls/hr Q24H IV 03/16/18 20:00 03/23/18 19:59 03/17/18 20:23 Dextrose (Dextrose 50%) 25 ml PRN IV Hypoglycemia 03/16/18 13:00 04/15/18 12:59 Dextrose (Dextrose 50%) 50 ml PRN IV hypoglycemia 03/16/18 13:00 04/15/18 12:59 Furosemide (Lasix) 40 mg TWICE A DAY ORAL 03/16/18 18:00 04/15/18 17:59 03/18/18 11:08 Heparin Sodium (Porcine) (Heparin 5000 units/ml) 5,000 units EVERY 12 HOURS SUBQ 03/16/18 21:00 04/15/18 20:59 03/18/18 11:12 Levothyroxine Sodium (Synthroid) 75 mcg DAILY ORAL 03/17/18 09:00 04/16/18 08:59 03/18/18 11:08 Morphine Sulfate (Morphine Sulfate) 2 mg Q4H PRN IVP PAIN 4-10 03/16/18 12:45 03/23/18 12:44 Nitroglycerin (Ntg) 0.4 mg Q5MIN X 3 DOSES PRN SL Prn Chest Pain 03/16/18 13:00 04/15/18 12:59 Ondansetron HCl (Zofran) 4 mg Q6H PRN IVP Nausea & Vomiting 03/16/18 12:45 04/15/18 12:44 Polyethylene Glycol (Miralax) 17 gm DAILYPRN PRN ORAL Constipation 03/16/18 12:45 04/15/18 12:44 Potassium Chloride (K-Dur) 20 meq TWICE A DAY ORAL 03/16/18 18:00 04/15/18 17:59 03/18/18 11:08 Temazepam (Restoril) 15 mg HSPRN PRN ORAL Insomnia 03/16/18 21:00 03/23/18 20:59 Vancomycin HCl (Vanco rx to dose) 1 ea DAILY PRN MISC rx per protocol 03/16/18 14:00 04/15/18 13:59 Vancomycin/Sodium Chloride 250 ml @ 166.667 mls/hr Q24H IVPB 03/17/18 15:00 03/22/18 14:59 03/17/18 15:15 Joycelyn Escobar M.D. Mar 18, 2018 12:57
--- NOTE | 2018-03-18 14:16 | Pulmonology Progress Note ---
Assessment/Plan Problems: (1) Sepsis (2) Acute encephalopathy (3) UTI (lower urinary tract infection) (4) Cellulitis of leg, right (5) HTN (hypertension) (6) Developmental delay (7) Hypothyroidism Assessment/Plan iv abx respiratory treatment BC are negative so far monitor BP swallow precaution social service Subjective ROS Limited/Unobtainable: No Constitutional: Reports: no symptoms HEENT: Repors: no symptoms Respiratory: Reports: no symptoms Allergies: Coded Allergies: No Known Allergies (Unverified , 06/15/12) Objective Last 24 Hour Vital Signs Date Time Temp Pulse Resp B/P (MAP) Pulse Ox O2 Delivery O2 Flow Rate FiO2 03/18/18 12:00 99.6 85 18 129/67 (87) 99.6 03/18/18 11:11 85 129/67 03/18/18 09:00 Room Air 03/18/18 08:00 97.9 90 18 127/65 (85) 95 97.9 03/18/18 04:15 98.3 92 18 145/83 (103) 95 98.3 03/18/18 00:08 98.9 101 18 120/65 (83) 95 98.9 03/17/18 22:37 Room Air 03/17/18 20:00 99.4 98 18 123/63 (83) 94 99.4 03/17/18 15:48 98.0 100 18 126/68 (87) 97 98.0 Intake and Output 03/17/18 03/18/18 19:00 07:00 Intake Total 110 ml Output Total 1200 ml 1400 ml Balance -1200 ml -1290 ml IV Total 110 ml Output Urine Total 1200 ml 1400 ml # Voids 2 General Appearance: WD/WN HEENT: normocephalic, atraumatic Respiratory/Chest: chest wall non-tender, lungs clear Cardiovascular: normal peripheral pulses, normal rate Abdomen: normal bowel sounds, soft, non tender Genitourinary: normal external genitalia Extremities: no clubbing Neurologic/Psychiatric: she[employer] circuit boards II-XII grossly normal, abnormal gait Lymphatic: no neck adenopathy Musculoskeletal: normal muscle bulk Microbiology Date/Time Source Procedure Growth Status 03/16/18 10:12 Blood Blood Culture - Preliminary NO GROWTH AFTER 24 HOURS Resulted 03/16/18 10:02 Blood Blood Culture - Preliminary NO GROWTH AFTER 24 HOURS Resulted 03/16/18 19:40 Urine,Clean Catch Urine Culture - Preliminary NO GROWTH AFTER 24 HOURS Resulted Laboratory Tests 03/18/18 05:20: White Blood Count 9.7, Red Blood Count 4.02L, Hemoglobin 10.4L, Hematocrit 32.9L , Mean Corpuscular Volume 82, Mean Corpuscular Hemoglobin 26.0L, Mean Corpuscular Hemoglobin Concent 31.7L, Red Cell Distribution Width 12.9, Platelet Count 167, Mean Platelet Volume 7.6, Neutrophils (%) (Auto) 72.8, Lymphocytes (%) (Auto) 11.6L, Monocytes (%) (Auto) 11.9H, Eosinophils (%) (Auto ) 2.6, Basophils (%) (Auto) 1.0, Sodium Level 145, Potassium Level 3.3L, Chloride Level 109H, Carbon Dioxide Level 28, Anion Gap 8, Blood Urea Nitrogen 18, Creatinine 1.5H, Estimat Glomerular Filtration Rate , Glucose Level 83, Calcium Level 8.2L Current Medications Medications (Trade) Dose Ordered Sig/Brian Route PRN Reason Start Time Stop Time Status Last Admin Dose Admin Acetaminophen (Tylenol) 650 mg Q4H PRN ORAL T>100.5 03/16/18 12:45 04/15/18 12:44 Albuterol/ Ipratropium (Albuterol/ Ipratropium) 3 ml Q4H PRN HHN Shortness of Breath 03/16/18 12:45 03/21/18 12:44 Amlodipine Besylate (Norvasc) 2.5 mg DAILY ORAL 03/17/18 09:00 04/16/18 08:59 03/18/18 11:11 Cefepime HCl 2 gm/ Dextrose 110 ml @ 220 mls/hr Q24H IV 03/16/18 20:00 03/23/18 19:59 03/17/18 20:23 Dextrose (Dextrose 50%) 25 ml PRN IV Hypoglycemia 03/16/18 13:00 04/15/18 12:59 Dextrose (Dextrose 50%) 50 ml PRN IV hypoglycemia 03/16/18 13:00 04/15/18 12:59 Furosemide (Lasix) 40 mg TWICE A DAY ORAL 03/16/18 18:00 04/15/18 17:59 03/18/18 11:08 Heparin Sodium (Porcine) (Heparin 5000 units/ml) 5,000 units EVERY 12 HOURS SUBQ 03/16/18 21:00 04/15/18 20:59 03/18/18 11:12 Levothyroxine Sodium (Synthroid) 75 mcg DAILY ORAL 03/17/18 09:00 04/16/18 08:59 03/18/18 11:08 Morphine Sulfate (Morphine Sulfate) 2 mg Q4H PRN IVP PAIN 4-10 03/16/18 12:45 03/23/18 12:44 Nitroglycerin (Ntg) 0.4 mg Q5MIN X 3 DOSES PRN SL Prn Chest Pain 03/16/18 13:00 04/15/18 12:59 Ondansetron HCl (Zofran) 4 mg Q6H PRN IVP Nausea & Vomiting 03/16/18 12:45 04/15/18 12:44 Polyethylene Glycol (Miralax) 17 gm DAILYPRN PRN ORAL Constipation 03/16/18 12:45 04/15/18 12:44 Potassium Chloride (K-Dur) 20 meq TWICE A DAY ORAL 03/16/18 18:00 04/15/18 17:59 03/18/18 11:08 Temazepam (Restoril) 15 mg HSPRN PRN ORAL Insomnia 03/16/18 21:00 03/23/18 20:59 Vancomycin HCl (Vanco rx to dose) 1 ea DAILY PRN MISC rx per protocol 03/16/18 14:00 04/15/18 13:59 Vancomycin/Sodium Chloride 250 ml @ 166.667 mls/hr Q24H IVPB 03/17/18 15:00 03/22/18 14:59 03/17/18 15:15 Yolanda Lazcano MD Mar 18, 2018 14:16
[2018-03-18] MEDS: Vancomycin 750mg/NS 250ml IVPB SCH (15:51)
[2018-03-18 16:00] VITALS: BP 142/66
[2018-03-18 20:00] VITALS: BP_SYST 127; BP_SYST 137; BP_DIAS 65; BP_DIAS 75
[2018-03-18] MEDS: Cefepime HCl 2 GM in D5W 110 ML IV SCH (21:58)
[2018-03-19] VITALS (7 sets, daily range): BP systolic 105–137; BP diastolic 55–76
[2018-03-19 06:42] LABS: BASOPHILS % (AUTO) 0.7 % (0.0-2.0); EOSINOPHILS % (AUTO) 7.7 % (0.0-3.0); HEMATOCRIT 32.2 % (42.0-52.0); HEMOGLOBIN 10.3 G/DL (14.2-18.0); LYMPHOCYTES % (AUTO) 14.2 % (20.0-45.0); MEAN CORPUSCULAR VOLUME 82 FL (80-99); MONOCYTES % (AUTO) 11.1 % (1.0-10.0); NEUTROPHILS % (AUTO) 66.4 % (45.0-75.0); PLATELET COUNT 192 K/UL (150-450); RED BLOOD COUNT 3.93 M/UL (4.70-6.10); RED CELL DISTRIBUTION WIDTH 12.9 % (11.6-14.8); WHITE BLOOD COUNT 7.7 K/UL (4.8-10.8)
[2018-03-19 06:52] LABS: ANION GAP 8 mmol/L (5-15); BLOOD UREA NITROGEN 19 mg/dL (7-18); CALCIUM 8.2 MG/DL (8.5-10.1); CARBON DIOXIDE 27 MMOL/L (21-32); CHLORIDE 109 MMOL/L (98-107); CREATININE 1.4 MG/DL (0.55-1.30); POTASSIUM 3.5 MMOL/L (3.5-5.1); SODIUM 144 MMOL/L (136-145)
[2018-03-19] MEDS: Furosemide 40mg tab ORAL SCH ×2 (08:20→18:51)
[2018-03-19] MEDS: Heparin 5000 units/ml inj SUBQ SCH ×2 (08:24→21:48)
--- NOTE | 2018-03-19 11:22 | Infectious Diseases Prog Note ---
Assessment/Plan Assessment/Plan Abx: IV Vanco 03/16- Cefepime /- Assessment: R leg cellulitis; improving R/o UTI -u/a wbc 15-20, nit neg, leuk +2; ucx Neg Leukocytosis, resolved -CXR: Suspected right perihilar mass. CT is advised. Vascular congestion. Possible lingular infiltrate. -CT chest: Cardiomegaly. No pulmonary edema. No acute infiltrate. -Bcx NTD Low grade fever cognitive delay HTN hx of leg cellulitis w/ multiple abx course Plan: -Switch IV Vancomycin #4/7 and CEfepime #4 to IV Ancef for R leg cellulitis; upon discharge can be transitioned to PO Keflex (renally dose) -f/u cx -monitor CBC/CMP temperatures -aspiration precautions Thank you for this consultation. Will continue to follow along with you. Discussed with RN Subjective Allergies: Coded Allergies: No Known Allergies (Unverified , 06/15/12) Subjective afebrile leukocytosis resolved Ucx and Bcx NTD Objective Vital Signs Last 24 Hour Vital Signs Date Time Temp Pulse Resp B/P (MAP) Pulse Ox O2 Delivery O2 Flow Rate FiO2 03/19/18 09:00 Room Air 03/19/18 08:21 84 135/76 03/19/18 08:00 97.2 84 135/76 (95) 98 97.2 03/19/18 04:00 99.0 85 20 122/61 (81) 93 99.0 03/19/18 00:00 100.3 83 19 105/55 (72) 93 100.3 03/18/18 21:00 Room Air 03/18/18 20:00 98.4 88 20 137/75 (95) 93 98.4 03/18/18 16:00 95 03/18/18 16:00 98.6 86 18 142/66 (91) 95 98.6 03/18/18 12:00 85 03/18/18 12:00 99.6 85 18 129/67 (87) 97 99.6 03/18/18 12:00 97 Height (Feet): 5 Height (Inches): 4.00 Weight (Pounds): 180 Objective General Appearance: other - cognitive delay Head: normocephalic Eyes: bilateral eye normal inspection, bilateral eye PERRL ENT: normal ENT inspection Neck: normal inspection Respiratory: chest non-tender, lungs clear, normal breath sounds, speaking full sentences Cardiovascular #1: regular rate, rhythm, no edema Gastrointestinal: normal inspection Genitourinary: no CVA tenderness Musculoskeletal: swelling - swelling/erythema to RLE Skin: no rash Microbiology Date/Time Source Procedure Growth Status 03/16/18 19:40 Urine,Clean Catch Urine Culture - Final NO GROWTH AFTER 48 HOURS Complete Laboratory Tests Test 03/19/18 05:10 White Blood Count 7.7 K/UL (4.8-10.8) Red Blood Count 3.93 M/UL (4.70-6.10) L Hemoglobin 10.3 G/DL (14.2-18.0) L Hematocrit 32.2 % (42.0-52.0) L Mean Corpuscular Volume 82 FL (80-99) Mean Corpuscular Hemoglobin 26.3 PG (27.0-31.0) L Mean Corpuscular Hemoglobin Concent 32.1 G/DL (32.0-36.0) Red Cell Distribution Width 12.9 % (11.6-14.8) Platelet Count 192 K/UL (150-450) Mean Platelet Volume 7.9 FL (6.5-10.1) Neutrophils (%) (Auto) 66.4 % (45.0-75.0) Lymphocytes (%) (Auto) 14.2 % (20.0-45.0) L Monocytes (%) (Auto) 11.1 % (1.0-10.0) H Eosinophils (%) (Auto) 7.7 % (0.0-3.0) H Basophils (%) (Auto) 0.7 % (0.0-2.0) Sodium Level 144 MMOL/L (136-145) Potassium Level 3.5 MMOL/L (3.5-5.1) Chloride Level 109 MMOL/L (98-107) H Carbon Dioxide Level 27 MMOL/L (21-32) Anion Gap 8 mmol/L (5-15) Blood Urea Nitrogen 19 mg/dL (7-18) H Creatinine 1.4 MG/DL (0.55-1.30) H Estimat Glomerular Filtration Rate mL/min (>60) Glucose Level 94 MG/DL (74-106) Calcium Level 8.2 MG/DL (8.5-10.1) L Current Medications Medications (Trade) Dose Ordered Sig/Brian Route PRN Reason Start Time Stop Time Status Last Admin Dose Admin Acetaminophen (Tylenol) 650 mg Q4H PRN ORAL T>100.5 03/16/18 12:45 04/15/18 12:44 Albuterol/ Ipratropium (Albuterol/ Ipratropium) 3 ml Q4H PRN HHN Shortness of Breath 03/16/18 12:45 03/21/18 12:44 Amlodipine Besylate (Norvasc) 2.5 mg DAILY ORAL 03/17/18 09:00 04/16/18 08:59 03/19/18 08:21 Cefepime HCl 2 gm/ Dextrose 110 ml @ 220 mls/hr Q24H IV 03/16/18 20:00 03/23/18 19:59 03/18/18 21:58 Dextrose (Dextrose 50%) 25 ml PRN IV Hypoglycemia 03/16/18 13:00 04/15/18 12:59 Dextrose (Dextrose 50%) 50 ml PRN IV hypoglycemia 03/16/18 13:00 04/15/18 12:59 Furosemide (Lasix) 40 mg TWICE A DAY ORAL 03/16/18 18:00 04/15/18 17:59 03/19/18 08:20 Heparin Sodium (Porcine) (Heparin 5000 units/ml) 5,000 units EVERY 12 HOURS SUBQ 03/16/18 21:00 04/15/18 20:59 03/19/18 08:24 Levothyroxine Sodium (Synthroid) 75 mcg DAILY ORAL 03/17/18 09:00 04/16/18 08:59 03/19/18 08:23 Morphine Sulfate (Morphine Sulfate) 2 mg Q4H PRN IVP PAIN 4-10 03/16/18 12:45 03/23/18 12:44 Nitroglycerin (Ntg) 0.4 mg Q5MIN X 3 DOSES PRN SL Prn Chest Pain 03/16/18 13:00 04/15/18 12:59 Ondansetron HCl (Zofran) 4 mg Q6H PRN IVP Nausea & Vomiting 03/16/18 12:45 04/15/18 12:44 Polyethylene Glycol (Miralax) 17 gm DAILYPRN PRN ORAL Constipation 03/16/18 12:45 04/15/18 12:44 Potassium Chloride (K-Dur) 20 meq TWICE A DAY ORAL 03/16/18 18:00 04/15/18 17:59 03/19/18 08:19 Temazepam (Restoril) 15 mg HSPRN PRN ORAL Insomnia 03/16/18 21:00 03/23/18 20:59 Vancomycin HCl (Vanco rx to dose) 1 ea DAILY PRN MISC rx per protocol 03/16/18 14:00 04/15/18 13:59 Vancomycin/Sodium Chloride 250 ml @ 166.667 mls/hr Q24H IVPB 03/17/18 15:00 03/22/18 14:59 03/18/18 15:51 Joycelyn Escobar M.D. Mar 19, 2018 11:22
--- NOTE | 2018-03-19 12:38 | General Progress Note ---
Assessment/Plan Status: stable, progressing Assessment/Plan Dementia encephalopathy -seroquel prn Subjective Date patient seen: Mar 19, 2018 Neurologic/Psychiatric: Reports: anxiety, depressed, emotional problems Allergies: Coded Allergies: No Known Allergies (Unverified , 06/15/12) Objective Last 24 Hour Vital Signs Date Time Temp Pulse Resp B/P (MAP) Pulse Ox O2 Delivery O2 Flow Rate FiO2 03/19/18 09:00 Room Air 03/19/18 08:21 84 135/76 03/19/18 08:00 97.2 84 135/76 (95) 98 97.2 03/19/18 04:00 99.0 85 20 122/61 (81) 93 99.0 03/19/18 00:00 100.3 83 19 105/55 (72) 93 100.3 03/18/18 21:00 Room Air 03/18/18 20:00 98.4 88 20 137/75 (95) 93 98.4 03/18/18 16:00 95 03/18/18 16:00 98.6 86 18 142/66 (91) 95 98.6 Intake and Output 03/18/18 03/19/18 19:00 07:00 Intake Total 960 ml 120 ml Output Total 400 ml 1100 ml Balance 560 ml -980 ml Intake Oral 960 ml 120 ml Output Urine Total 400 ml 1100 ml # Bowel Movements 1 2 Laboratory Tests 03/19/18 05:10: White Blood Count 7.7, Red Blood Count 3.93L, Hemoglobin 10.3L, Hematocrit 32.2L , Mean Corpuscular Volume 82, Mean Corpuscular Hemoglobin 26.3L, Mean Corpuscular Hemoglobin Concent 32.1, Red Cell Distribution Width 12.9, Platelet Count 192, Mean Platelet Volume 7.9, Neutrophils (%) (Auto) 66.4, Lymphocytes (% ) (Auto) 14.2L, Monocytes (%) (Auto) 11.1H, Eosinophils (%) (Auto) 7.7H, Basophils (%) (Auto) 0.7, Sodium Level 144, Potassium Level 3.5, Chloride Level 109H, Carbon Dioxide Level 27, Anion Gap 8, Blood Urea Nitrogen 19H, Creatinine 1.4H, Estimat Glomerular Filtration Rate , Glucose Level 94, Calcium Level 8.2L Height (Feet): 5 Height (Inches): 4.00 Weight (Pounds): 180 General Appearance: no apparent distress, alert, confused Loulou Gutierrez MD Mar 19, 2018 12:38
--- NOTE | 2018-03-19 13:23 | Pulmonology Progress Note ---
Assessment/Plan Problems: (1) Sepsis (2) Cellulitis (3) Acute encephalopathy (4) Hypothyroidism (5) HTN (hypertension) Assessment/Plan wbc lower IV Ancef for R leg cellulitis improving respiratory treatment f/u cultures dvt prophylaxis check electrolytes Subjective ROS Limited/Unobtainable: No Constitutional: Reports: no symptoms HEENT: Repors: no symptoms Respiratory: Reports: no symptoms Allergies: Coded Allergies: No Known Allergies (Unverified , 06/15/12) Objective Last 24 Hour Vital Signs Date Time Temp Pulse Resp B/P (MAP) Pulse Ox O2 Delivery O2 Flow Rate FiO2 03/19/18 12:00 97.9 81 19 110/58 (75) 97 97.9 03/19/18 09:00 Room Air 03/19/18 08:21 84 135/76 03/19/18 08:00 97.2 84 135/76 (95) 98 97.2 03/19/18 04:00 99.0 85 20 122/61 (81) 93 99.0 03/19/18 00:00 100.3 83 19 105/55 (72) 93 100.3 03/18/18 21:00 Room Air 03/18/18 20:00 98.4 88 20 137/75 (95) 93 98.4 03/18/18 16:00 95 03/18/18 16:00 98.6 86 18 142/66 (91) 95 98.6 Intake and Output 03/18/18 03/19/18 19:00 07:00 Intake Total 960 ml 120 ml Output Total 400 ml 1100 ml Balance 560 ml -980 ml Intake Oral 960 ml 120 ml Output Urine Total 400 ml 1100 ml # Bowel Movements 1 2 General Appearance: WD/WN HEENT: normocephalic, atraumatic, anicteric Respiratory/Chest: chest wall non-tender, lungs clear Cardiovascular: normal peripheral pulses, normal rate Abdomen: normal bowel sounds, soft, non tender Genitourinary: normal external genitalia Extremities: no cyanosis Skin: no rash 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, no motor/sensory deficits Lymphatic: no neck adenopathy Microbiology Date/Time Source Procedure Growth Status 03/16/18 19:40 Urine,Clean Catch Urine Culture - Final NO GROWTH AFTER 48 HOURS Complete Laboratory Tests 03/19/18 05:10: White Blood Count 7.7, Red Blood Count 3.93L, Hemoglobin 10.3L, Hematocrit 32.2L , Mean Corpuscular Volume 82, Mean Corpuscular Hemoglobin 26.3L, Mean Corpuscular Hemoglobin Concent 32.1, Red Cell Distribution Width 12.9, Platelet Count 192, Mean Platelet Volume 7.9, Neutrophils (%) (Auto) 66.4, Lymphocytes (% ) (Auto) 14.2L, Monocytes (%) (Auto) 11.1H, Eosinophils (%) (Auto) 7.7H, Basophils (%) (Auto) 0.7, Sodium Level 144, Potassium Level 3.5, Chloride Level 109H, Carbon Dioxide Level 27, Anion Gap 8, Blood Urea Nitrogen 19H, Creatinine 1.4H, Estimat Glomerular Filtration Rate , Glucose Level 94, Calcium Level 8.2L Current Medications Medications (Trade) Dose Ordered Sig/Brian Route PRN Reason Start Time Stop Time Status Last Admin Dose Admin Acetaminophen (Tylenol) 650 mg Q4H PRN ORAL T>100.5 03/16/18 12:45 04/15/18 12:44 Albuterol/ Ipratropium (Albuterol/ Ipratropium) 3 ml Q4H PRN HHN Shortness of Breath 03/16/18 12:45 03/21/18 12:44 Amlodipine Besylate (Norvasc) 2.5 mg DAILY ORAL 03/17/18 09:00 04/16/18 08:59 03/19/18 08:21 Cefazolin Sodium 1 gm/Dextrose 110 ml @ 220 mls/hr Q8HR IVPB 03/19/18 14:00 03/26/18 13:59 Dextrose (Dextrose 50%) 25 ml PRN IV Hypoglycemia 03/16/18 13:00 04/15/18 12:59 Dextrose (Dextrose 50%) 50 ml PRN IV hypoglycemia 03/16/18 13:00 04/15/18 12:59 Furosemide (Lasix) 40 mg TWICE A DAY ORAL 03/16/18 18:00 04/15/18 17:59 03/19/18 08:20 Heparin Sodium (Porcine) (Heparin 5000 units/ml) 5,000 units EVERY 12 HOURS SUBQ 03/16/18 21:00 04/15/18 20:59 03/19/18 08:24 Levothyroxine Sodium (Synthroid) 75 mcg DAILY ORAL 03/17/18 09:00 04/16/18 08:59 03/19/18 08:23 Morphine Sulfate (Morphine Sulfate) 2 mg Q4H PRN IVP PAIN 4-10 03/16/18 12:45 03/23/18 12:44 Nitroglycerin (Ntg) 0.4 mg Q5MIN X 3 DOSES PRN SL Prn Chest Pain 03/16/18 13:00 04/15/18 12:59 Ondansetron HCl (Zofran) 4 mg Q6H PRN IVP Nausea & Vomiting 03/16/18 12:45 04/15/18 12:44 Polyethylene Glycol (Miralax) 17 gm DAILYPRN PRN ORAL Constipation 03/16/18 12:45 04/15/18 12:44 Potassium Chloride (K-Dur) 20 meq TWICE A DAY ORAL 03/16/18 18:00 04/15/18 17:59 03/19/18 08:19 Quetiapine Fumarate (SEROquel) 12.5 mg Q4H PRN ORAL agitation 03/19/18 12:45 04/18/18 12:44 Temazepam (Restoril) 15 mg HSPRN PRN ORAL Insomnia 03/16/18 21:00 03/23/18 20:59 Yolanda Lazcano MD Mar 19, 2018 13:23
--- NOTE | 2018-03-19 13:48 | Diagnostic Imaging Report ---
APPROVED REPORT CPT Code: 83880 Present Symptoms Comments: R/O DVT BILATERAL: Imaging reveals a patent deep venous system bilaterally. There is no evidence of thrombus within the femoral, popliteal or tibial segments. The greater saphenous veins are also within normal limits. Doppler indicates normal spontaneous flow within these segments.
[2018-03-19] MEDS: ceFAZolin sod 1 GM in D5W 110 ML IVPB SCH ×2 (14:01→21:47)
--- NOTE | 2018-03-19 16:02 | Internal Med Progress Note ---
Subjective Date of Service: Mar 19, 2018 Physician Name Chicho Ring Attending Physician Librado Faria MD Current Medications Medications (Trade) Dose Ordered Sig/Brian Route PRN Reason Start Time Stop Time Status Last Admin Dose Admin Acetaminophen (Tylenol) 650 mg Q4H PRN ORAL T>100.5 03/16/18 12:45 04/15/18 12:44 Albuterol/ Ipratropium (Albuterol/ Ipratropium) 3 ml Q4H PRN HHN Shortness of Breath 03/16/18 12:45 03/21/18 12:44 Amlodipine Besylate (Norvasc) 2.5 mg DAILY ORAL 03/17/18 09:00 04/16/18 08:59 03/19/18 08:21 Cefazolin Sodium 1 gm/Dextrose 110 ml @ 220 mls/hr Q8HR IVPB 03/19/18 14:00 03/26/18 13:59 03/19/18 14:01 Dextrose (Dextrose 50%) 25 ml PRN IV Hypoglycemia 03/16/18 13:00 04/15/18 12:59 Dextrose (Dextrose 50%) 50 ml PRN IV hypoglycemia 03/16/18 13:00 04/15/18 12:59 Furosemide (Lasix) 40 mg TWICE A DAY ORAL 03/16/18 18:00 04/15/18 17:59 03/19/18 08:20 Heparin Sodium (Porcine) (Heparin 5000 units/ml) 5,000 units EVERY 12 HOURS SUBQ 03/16/18 21:00 04/15/18 20:59 03/19/18 08:24 Levothyroxine Sodium (Synthroid) 75 mcg DAILY ORAL 03/17/18 09:00 04/16/18 08:59 03/19/18 08:23 Morphine Sulfate (Morphine Sulfate) 2 mg Q4H PRN IVP PAIN 4-10 03/16/18 12:45 03/23/18 12:44 Nitroglycerin (Ntg) 0.4 mg Q5MIN X 3 DOSES PRN SL Prn Chest Pain 03/16/18 13:00 04/15/18 12:59 Ondansetron HCl (Zofran) 4 mg Q6H PRN IVP Nausea & Vomiting 03/16/18 12:45 04/15/18 12:44 Polyethylene Glycol (Miralax) 17 gm DAILYPRN PRN ORAL Constipation 03/16/18 12:45 04/15/18 12:44 Potassium Chloride (K-Dur) 20 meq TWICE A DAY ORAL 03/16/18 18:00 04/15/18 17:59 03/19/18 08:19 Quetiapine Fumarate (SEROquel) 12.5 mg Q4H PRN ORAL agitation 03/19/18 12:45 04/18/18 12:44 Temazepam (Restoril) 15 mg HSPRN PRN ORAL Insomnia 03/16/18 21:00 03/23/18 20:59 Allergies: Coded Allergies: No Known Allergies (Unverified , 06/15/12) Subjective 82 YO M admitted with pain/swelling right leg. Now cellulitis right leg. Cover for Int Med-Dr Faria. Still with low grade fever Objective Last Vital Signs Date Time Temp Pulse Resp B/P (MAP) Pulse Ox O2 Delivery O2 Flow Rate FiO2 03/19/18 12:00 97.9 81 19 110/58 (75) 97 97.9 03/19/18 09:00 Room Air Laboratory Tests Test 03/19/18 05:10 White Blood Count 7.7 K/UL (4.8-10.8) Red Blood Count 3.93 M/UL (4.70-6.10) L Hemoglobin 10.3 G/DL (14.2-18.0) L Hematocrit 32.2 % (42.0-52.0) L Mean Corpuscular Volume 82 FL (80-99) Mean Corpuscular Hemoglobin 26.3 PG (27.0-31.0) L Mean Corpuscular Hemoglobin Concent 32.1 G/DL (32.0-36.0) Red Cell Distribution Width 12.9 % (11.6-14.8) Platelet Count 192 K/UL (150-450) Mean Platelet Volume 7.9 FL (6.5-10.1) Neutrophils (%) (Auto) 66.4 % (45.0-75.0) Lymphocytes (%) (Auto) 14.2 % (20.0-45.0) L Monocytes (%) (Auto) 11.1 % (1.0-10.0) H Eosinophils (%) (Auto) 7.7 % (0.0-3.0) H Basophils (%) (Auto) 0.7 % (0.0-2.0) Sodium Level 144 MMOL/L (136-145) Potassium Level 3.5 MMOL/L (3.5-5.1) Chloride Level 109 MMOL/L (98-107) H Carbon Dioxide Level 27 MMOL/L (21-32) Anion Gap 8 mmol/L (5-15) Blood Urea Nitrogen 19 mg/dL (7-18) H Creatinine 1.4 MG/DL (0.55-1.30) H Estimat Glomerular Filtration Rate mL/min (>60) Glucose Level 94 MG/DL (74-106) Calcium Level 8.2 MG/DL (8.5-10.1) L Microbiology Date/Time Source Procedure Growth Status 03/16/18 19:40 Urine,Clean Catch Urine Culture - Final NO GROWTH AFTER 48 HOURS Complete Intake and Output 03/18/18 03/19/18 19:00 07:00 Intake Total 960 ml 120 ml Output Total 400 ml 1100 ml Balance 560 ml -980 ml Intake Oral 960 ml 120 ml Output Urine Total 400 ml 1100 ml # Bowel Movements 1 2 Objective General Appearance: WD/WN, no apparent distress, alert EENT: PERRL/EOMI, normal ENT inspection Neck: non-tender, normal alignment, supple, normal inspection Cardiovascular: normal peripheral pulses, normal rate, regular rhythm, no gallop/murmur, no JVD Respiratory/Chest: chest wall non-tender, lungs clear, normal breath sounds, no respiratory distress, no accessory muscle use Abdomen: normal bowel sounds, non tender, soft, no organomegaly, no mass Extremities: normal range of motion, non-tender Edema: trace edema 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 Start Ancef per ID (3) Pain in right leg (4) Leukocytosis (5) UTI (lower urinary tract infection) Assessment & Plan: Continue vanco and cefepime (6) Hypothyroidism Assessment & Plan: Continue levoxyl Status: progressing Chicho Ring MD Mar 19, 2018 16:02
[2018-03-20] VITALS: BP 137/74
[2018-03-20 04:00] VITALS: BP 136/67
[2018-03-20] MEDS: ceFAZolin sod 1 GM in D5W 110 ML IVPB SCH ×2 (05:38→13:37)
[2018-03-20 06:56] LABS: BASOPHILS % (AUTO) 0.7 % (0.0-2.0); EOSINOPHILS % (AUTO) 12.3 % (0.0-3.0); HEMATOCRIT 36.7 % (42.0-52.0); HEMOGLOBIN 11.5 G/DL (14.2-18.0); MEAN CORPUSCULAR VOLUME 82 FL (80-99); PLATELET COUNT 239 K/UL (150-450); RED BLOOD COUNT 4.47 M/UL (4.70-6.10); RED CELL DISTRIBUTION WIDTH 13.3 % (11.6-14.8); WHITE BLOOD COUNT 6.5 K/UL (4.8-10.8)
[2018-03-20 07:24] LABS: ANION GAP 7 mmol/L (5-15); BLOOD UREA NITROGEN 21 mg/dL (7-18); CARBON DIOXIDE 29 MMOL/L (21-32); CHLORIDE 102 MMOL/L (98-107); CREATININE 1.3 MG/DL (0.55-1.30); POTASSIUM 3.4 MMOL/L (3.5-5.1); SODIUM 138 MMOL/L (136-145)
[2018-03-20 08:00] VITALS: BP 113/59
[2018-03-20] MEDS: Furosemide 40mg tab ORAL SCH (09:27)
[2018-03-20] MEDS: Heparin 5000 units/ml inj SUBQ SCH (09:29)
[2018-03-20 12:00] VITALS: BP 132/79
--- NOTE | 2018-03-20 12:53 | Internal Med Progress Note ---
Subjective Date of Service: Mar 20, 2018 Physician Name Chicho Ring Attending Physician Librado Faria MD Current Medications Medications (Trade) Dose Ordered Sig/Brian Route PRN Reason Start Time Stop Time Status Last Admin Dose Admin Acetaminophen (Tylenol) 650 mg Q4H PRN ORAL T>100.5 03/16/18 12:45 04/15/18 12:44 Albuterol/ Ipratropium (Albuterol/ Ipratropium) 3 ml Q4H PRN HHN Shortness of Breath 03/16/18 12:45 03/21/18 12:44 Amlodipine Besylate (Norvasc) 2.5 mg DAILY ORAL 03/17/18 09:00 04/16/18 08:59 03/20/18 09:27 Cefazolin Sodium 1 gm/Dextrose 110 ml @ 220 mls/hr Q8HR IVPB 03/19/18 14:00 03/26/18 13:59 03/20/18 05:38 Dextrose (Dextrose 50%) 25 ml PRN IV Hypoglycemia 03/16/18 13:00 04/15/18 12:59 Dextrose (Dextrose 50%) 50 ml PRN IV hypoglycemia 03/16/18 13:00 04/15/18 12:59 Furosemide (Lasix) 40 mg TWICE A DAY ORAL 03/16/18 18:00 04/15/18 17:59 03/20/18 09:27 Heparin Sodium (Porcine) (Heparin 5000 units/ml) 5,000 units EVERY 12 HOURS SUBQ 03/16/18 21:00 04/15/18 20:59 03/20/18 09:29 Levothyroxine Sodium (Synthroid) 75 mcg DAILY ORAL 03/17/18 09:00 04/16/18 08:59 03/20/18 09:27 Morphine Sulfate (Morphine Sulfate) 2 mg Q4H PRN IVP PAIN 4-10 03/16/18 12:45 03/23/18 12:44 Nitroglycerin (Ntg) 0.4 mg Q5MIN X 3 DOSES PRN SL Prn Chest Pain 03/16/18 13:00 04/15/18 12:59 Ondansetron HCl (Zofran) 4 mg Q6H PRN IVP Nausea & Vomiting 03/16/18 12:45 04/15/18 12:44 Polyethylene Glycol (Miralax) 17 gm DAILYPRN PRN ORAL Constipation 03/16/18 12:45 04/15/18 12:44 Potassium Chloride (K-Dur) 20 meq TWICE A DAY ORAL 03/16/18 18:00 04/15/18 17:59 03/20/18 09:27 Quetiapine Fumarate (SEROquel) 12.5 mg Q4H PRN ORAL agitation 03/19/18 12:45 04/18/18 12:44 Temazepam (Restoril) 15 mg HSPRN PRN ORAL Insomnia 03/16/18 21:00 03/23/18 20:59 Allergies: Coded Allergies: No Known Allergies (Unverified , 06/15/12) ROS Limited/Unobtainable: No Constitutional: Reports: no symptoms HEENT: Reports: no symptoms Cardiovascular: Reports: no symptoms Respiratory: Reports: no symptoms Gastrointestinal/Abdominal: Reports: no symptoms Genitourinary: Reports: no symptoms Neurologic/Psychiatric: Reports: no symptoms Subjective 82 YO M admitted with pain/swelling right leg. Now cellulitis right leg. Cover for Int Med-Dr Faria. Objective Last Vital Signs Date Time Temp Pulse Resp B/P (MAP) Pulse Ox O2 Delivery O2 Flow Rate FiO2 03/20/18 12:00 98.4 76 18 132/79 (96) 99 98.4 03/20/18 08:13 Room Air Laboratory Tests Test 03/20/18 05:30 White Blood Count 6.5 K/UL (4.8-10.8) Red Blood Count 4.47 M/UL (4.70-6.10) L Hemoglobin 11.5 G/DL (14.2-18.0) L Hematocrit 36.7 % (42.0-52.0) L Mean Corpuscular Volume 82 FL (80-99) Mean Corpuscular Hemoglobin 25.7 PG (27.0-31.0) L Mean Corpuscular Hemoglobin Concent 31.4 G/DL (32.0-36.0) L Red Cell Distribution Width 13.3 % (11.6-14.8) Platelet Count 239 K/UL (150-450) Mean Platelet Volume 7.9 FL (6.5-10.1) Neutrophils (%) (Auto) 53.0 % (45.0-75.0) Lymphocytes (%) (Auto) 20.0 % (20.0-45.0) Monocytes (%) (Auto) 14.0 % (1.0-10.0) H Eosinophils (%) (Auto) 12.3 % (0.0-3.0) H Basophils (%) (Auto) 0.7 % (0.0-2.0) Sodium Level 138 MMOL/L (136-145) Potassium Level 3.4 MMOL/L (3.5-5.1) L Chloride Level 102 MMOL/L (98-107) Carbon Dioxide Level 29 MMOL/L (21-32) Anion Gap 7 mmol/L (5-15) Blood Urea Nitrogen 21 mg/dL (7-18) H Creatinine 1.3 MG/DL (0.55-1.30) Estimat Glomerular Filtration Rate mL/min (>60) Glucose Level 88 MG/DL (74-106) Calcium Level 9.0 MG/DL (8.5-10.1) Intake and Output 03/19/18 03/20/18 19:00 07:00 Intake Total 300 ml 910 ml Output Total 1200 ml 600 ml Balance -900 ml 310 ml Intake Oral 300 ml 800 ml IV Total 110 ml Output Urine Total 1200 ml 600 ml # Bowel Movements 2 Objective General Appearance: WD/WN, no apparent distress, alert EENT: PERRL/EOMI, normal ENT inspection Neck: non-tender, normal alignment, supple, normal inspection Cardiovascular: normal peripheral pulses, normal rate, regular rhythm, no gallop/murmur, no JVD Respiratory/Chest: chest wall non-tender, lungs clear, normal breath sounds, no respiratory distress, no accessory muscle use Abdomen: normal bowel sounds, non tender, soft, no organomegaly, no mass Extremities: normal range of motion, non-tender Edema: trace edema 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
--- NOTE | 2018-03-20 12:57 | Pulmonology Progress Note ---
Assessment/Plan Problems: (1) Sepsis (2) Cellulitis (3) Acute encephalopathy (4) Hypothyroidism (5) HTN (hypertension) Assessment/Plan sitting up in the chair looks much better today wbc lower IV Ancef for R leg cellulitis improving respiratory treatment f/u cultures dvt prophylaxis check electrolytes Subjective ROS Limited/Unobtainable: No Allergies: Coded Allergies: No Known Allergies (Unverified , 06/15/12) Objective Last 24 Hour Vital Signs Date Time Temp Pulse Resp B/P (MAP) Pulse Ox O2 Delivery O2 Flow Rate FiO2 03/20/18 12:00 98.4 76 18 132/79 (96) 99 98.4 03/20/18 09:27 74 113/59 03/20/18 08:13 Room Air 03/20/18 08:00 97.1 74 20 113/59 (77) 98 97.1 03/20/18 04:00 98.1 67 18 136/67 (90) 99 98.1 03/20/18 00:00 97.1 68 17 137/74 (95) 94 97.1 03/19/18 23:00 Room Air 03/19/18 20:00 98.7 74 17 137/76 (96) 97 98.7 03/19/18 18:52 82 136/71 (92) 03/19/18 16:00 98.1 76 20 107/57 (74) 95 98.1 Intake and Output 03/19/18 03/20/18 19:00 07:00 Intake Total 300 ml 910 ml Output Total 1200 ml 600 ml Balance -900 ml 310 ml Intake Oral 300 ml 800 ml IV Total 110 ml Output Urine Total 1200 ml 600 ml # Bowel Movements 2 General Appearance: WD/WN HEENT: normocephalic Respiratory/Chest: chest wall non-tender, lungs clear Cardiovascular: normal peripheral pulses, normal rate Abdomen: normal bowel sounds, soft, non tender Genitourinary: normal external genitalia Extremities: no clubbing 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, no motor/sensory deficits Lymphatic: no neck adenopathy Laboratory Tests 03/20/18 05:30: White Blood Count 6.5, Red Blood Count 4.47L, Hemoglobin 11.5L, Hematocrit 36.7L , Mean Corpuscular Volume 82, Mean Corpuscular Hemoglobin 25.7L, Mean Corpuscular Hemoglobin Concent 31.4L, Red Cell Distribution Width 13.3, Platelet Count 239, Mean Platelet Volume 7.9, Neutrophils (%) (Auto) 53.0, Lymphocytes (%) (Auto) 20.0, Monocytes (%) (Auto) 14.0H, Eosinophils (%) (Auto) 12.3H, Basophils (%) (Auto) 0.7, Sodium Level 138, Potassium Level 3.4L, Chloride Level 102, Carbon Dioxide Level 29, Anion Gap 7, Blood Urea Nitrogen 21H, Creatinine 1.3, Estimat Glomerular Filtration Rate , Glucose Level 88, Calcium Level 9.0 Current Medications Medications (Trade) Dose Ordered Sig/Brian Route PRN Reason Start Time Stop Time Status Last Admin Dose Admin Acetaminophen (Tylenol) 650 mg Q4H PRN ORAL T>100.5 03/16/18 12:45 04/15/18 12:44 Albuterol/ Ipratropium (Albuterol/ Ipratropium) 3 ml Q4H PRN HHN Shortness of Breath 03/16/18 12:45 03/21/18 12:44 Amlodipine Besylate (Norvasc) 2.5 mg DAILY ORAL 03/17/18 09:00 04/16/18 08:59 03/20/18 09:27 Cefazolin Sodium 1 gm/Dextrose 110 ml @ 220 mls/hr Q8HR IVPB 03/19/18 14:00 03/26/18 13:59 03/20/18 05:38 Dextrose (Dextrose 50%) 25 ml PRN IV Hypoglycemia 03/16/18 13:00 04/15/18 12:59 Dextrose (Dextrose 50%) 50 ml PRN IV hypoglycemia 03/16/18 13:00 04/15/18 12:59 Furosemide (Lasix) 40 mg TWICE A DAY ORAL 03/16/18 18:00 04/15/18 17:59 03/20/18 09:27 Heparin Sodium (Porcine) (Heparin 5000 units/ml) 5,000 units EVERY 12 HOURS SUBQ 03/16/18 21:00 04/15/18 20:59 03/20/18 09:29 Levothyroxine Sodium (Synthroid) 75 mcg DAILY ORAL 03/17/18 09:00 04/16/18 08:59 03/20/18 09:27 Morphine Sulfate (Morphine Sulfate) 2 mg Q4H PRN IVP PAIN 4-10 03/16/18 12:45 03/23/18 12:44 Nitroglycerin (Ntg) 0.4 mg Q5MIN X 3 DOSES PRN SL Prn Chest Pain 03/16/18 13:00 04/15/18 12:59 Ondansetron HCl (Zofran) 4 mg Q6H PRN IVP Nausea & Vomiting 03/16/18 12:45 04/15/18 12:44 Polyethylene Glycol (Miralax) 17 gm DAILYPRN PRN ORAL Constipation 03/16/18 12:45 04/15/18 12:44 Potassium Chloride (K-Dur) 20 meq TWICE A DAY ORAL 03/16/18 18:00 04/15/18 17:59 03/20/18 09:27 Quetiapine Fumarate (SEROquel) 12.5 mg Q4H PRN ORAL agitation 03/19/18 12:45 04/18/18 12:44 Temazepam (Restoril) 15 mg HSPRN PRN ORAL Insomnia 03/16/18 21:00 03/23/18 20:59 Yolanda Lazcano MD Mar 20, 2018 12:57
[2018-03-20] MEDS ORDERED: CEPHALEXIN500 MG ORAL (12:59)
--- NOTE | 2018-03-20 14:27 | Infectious Diseases Prog Note ---
Assessment/Plan Assessment/Plan Abx: IV Vanco 03/16- Cefepime 03/16- Assessment: R leg cellulitis; improving V. duplex no DVT R/o UTI -u/a wbc 15-20, nit neg, leuk +2; ucx Neg Leukocytosis, resolved -CXR: Suspected right perihilar mass. CT is advised. Vascular congestion. Possible lingular infiltrate. -CT chest: Cardiomegaly. No pulmonary edema. No acute infiltrate. -Bcx NTD Low grade fever; improving cognitive delay HTN hx of leg cellulitis w/ multiple abx course Plan: -Continue IV Ancef abx d#01/14 for R leg cellulitis; upon discharge can be transitioned to PO Keflex (renally dose) -03/19 SP IV Vanco #4, Cefepime #4 -f/u cx -monitor CBC/CMP temperatures -aspiration precautions Thank you for this consultation. Will continue to follow along with you. Discussed with RN Subjective Allergies: Coded Allergies: No Known Allergies (Unverified , 06/15/12) Subjective afebrile in 36hrs no leukocytosis Ucx and Bcx NTD Objective Vital Signs Last 24 Hour Vital Signs Date Time Temp Pulse Resp B/P (MAP) Pulse Ox O2 Delivery O2 Flow Rate FiO2 03/20/18 12:00 98.4 76 18 132/79 (96) 99 98.4 03/20/18 09:27 74 113/59 03/20/18 08:13 Room Air 03/20/18 08:00 97.1 74 20 113/59 (77) 98 97.1 03/20/18 04:00 98.1 67 18 136/67 (90) 99 98.1 03/20/18 00:00 97.1 68 17 137/74 (95) 94 97.1 03/19/18 23:00 Room Air 03/19/18 20:00 98.7 74 17 137/76 (96) 97 98.7 03/19/18 18:52 82 136/71 (92) 03/19/18 16:00 98.1 76 20 107/57 (74) 95 98.1 Height (Feet): 5 Height (Inches): 4.00 Weight (Pounds): 171 Objective General Appearance: other - cognitive delay Head: normocephalic Eyes: bilateral eye normal inspection, bilateral eye PERRL ENT: normal ENT inspection Neck: normal inspection Respiratory: chest non-tender, lungs clear, normal breath sounds, speaking full sentences Cardiovascular #1: regular rate, rhythm, no edema Gastrointestinal: normal inspection Genitourinary: no CVA tenderness Musculoskeletal: swelling - swelling/erythema to RLE Skin: no rash Laboratory Tests Test 03/20/18 05:30 White Blood Count 6.5 K/UL (4.8-10.8) Red Blood Count 4.47 M/UL (4.70-6.10) L Hemoglobin 11.5 G/DL (14.2-18.0) L Hematocrit 36.7 % (42.0-52.0) L Mean Corpuscular Volume 82 FL (80-99) Mean Corpuscular Hemoglobin 25.7 PG (27.0-31.0) L Mean Corpuscular Hemoglobin Concent 31.4 G/DL (32.0-36.0) L Red Cell Distribution Width 13.3 % (11.6-14.8) Platelet Count 239 K/UL (150-450) Mean Platelet Volume 7.9 FL (6.5-10.1) Neutrophils (%) (Auto) 53.0 % (45.0-75.0) Lymphocytes (%) (Auto) 20.0 % (20.0-45.0) Monocytes (%) (Auto) 14.0 % (1.0-10.0) H Eosinophils (%) (Auto) 12.3 % (0.0-3.0) H Basophils (%) (Auto) 0.7 % (0.0-2.0) Sodium Level 138 MMOL/L (136-145) Potassium Level 3.4 MMOL/L (3.5-5.1) L Chloride Level 102 MMOL/L (98-107) Carbon Dioxide Level 29 MMOL/L (21-32) Anion Gap 7 mmol/L (5-15) Blood Urea Nitrogen 21 mg/dL (7-18) H Creatinine 1.3 MG/DL (0.55-1.30) Estimat Glomerular Filtration Rate mL/min (>60) Glucose Level 88 MG/DL (74-106) Calcium Level 9.0 MG/DL (8.5-10.1) Current Medications Medications (Trade) Dose Ordered Sig/Brian Route PRN Reason Start Time Stop Time Status Last Admin Dose Admin Acetaminophen (Tylenol) 650 mg Q4H PRN ORAL T>100.5 03/16/18 12:45 04/15/18 12:44 Albuterol/ Ipratropium (Albuterol/ Ipratropium) 3 ml Q4H PRN HHN Shortness of Breath 03/16/18 12:45 03/21/18 12:44 Amlodipine Besylate (Norvasc) 2.5 mg DAILY ORAL 03/17/18 09:00 04/16/18 08:59 03/20/18 09:27 Cefazolin Sodium 1 gm/Dextrose 110 ml @ 220 mls/hr Q8HR IVPB 03/19/18 14:00 03/26/18 13:59 03/20/18 13:37 Dextrose (Dextrose 50%) 25 ml PRN IV Hypoglycemia 03/16/18 13:00 04/15/18 12:59 Dextrose (Dextrose 50%) 50 ml PRN IV hypoglycemia 03/16/18 13:00 04/15/18 12:59 Furosemide (Lasix) 40 mg TWICE A DAY ORAL 03/16/18 18:00 04/15/18 17:59 03/20/18 09:27 Heparin Sodium (Porcine) (Heparin 5000 units/ml) 5,000 units EVERY 12 HOURS SUBQ 03/16/18 21:00 04/15/18 20:59 03/20/18 09:29 Levothyroxine Sodium (Synthroid) 75 mcg DAILY ORAL 03/17/18 09:00 04/16/18 08:59 03/20/18 09:27 Morphine Sulfate (Morphine Sulfate) 2 mg Q4H PRN IVP PAIN 4-10 03/16/18 12:45 03/23/18 12:44 Nitroglycerin (Ntg) 0.4 mg Q5MIN X 3 DOSES PRN SL Prn Chest Pain 03/16/18 13:00 04/15/18 12:59 Ondansetron HCl (Zofran) 4 mg Q6H PRN IVP Nausea & Vomiting 03/16/18 12:45 04/15/18 12:44 Polyethylene Glycol (Miralax) 17 gm DAILYPRN PRN ORAL Constipation 03/16/18 12:45 04/15/18 12:44 Potassium Chloride (K-Dur) 20 meq TWICE A DAY ORAL 03/16/18 18:00 04/15/18 17:59 03/20/18 09:27 Quetiapine Fumarate (SEROquel) 12.5 mg Q4H PRN ORAL agitation 03/19/18 12:45 04/18/18 12:44 Temazepam (Restoril) 15 mg HSPRN PRN ORAL Insomnia 03/16/18 21:00 03/23/18 20:59 Joycelyn Escobar M.D. Mar 20, 2018 14:27
[2018-03-20 16:00] VITALS: BP 146/73
[2018-03-20] MEDS ORDERED: Tubing IV Secondary IV ONE (16:31)
[2018-03-20] MEDS ORDERED: NS 275ml ONE (16:41)
--- NOTE | 2018-03-21 08:58 | Discharge Summary ---
Discharge Summary Discharge Summary _ DATE OF ADMISSION: 03/16/2018 DATE OF DISCHARGE: 03/20/2018 ATTENDING: Dr. Librado Faria CONSULTANTS: Dr. Yolanda Gutierrez BRIEF HOSPITAL COURSE: Patient is an 82-year-old white male, who presented to ED with chief complaint of pain and swelling to the right leg. According to patient's caregiver, patient began experiencing increased pain and swelling to the right leg that begun one day prior to admission. He also appeared more altered than usual and had poor appetite. There was no fever or chills. He has medical history significant for hypertension, and hypothyroidism. Patient has history of cognitive delay and is unable to contribute to history. On evaluation at ED, blood pressure was elevated to 167/78, he was tachycardic heart rate was 102, RR 16, he was afebrile. Blood work showed leukocytosis with WBC 20.8, hemoglobin was 11.8 and hematocrit 37. Creatinine was elevated to 1.5 and BUN was 19. Lactic acid was elevated to 2.9. Urinalysis had 2+ occult blood, 2+ protein, 0-2 WBC, 2-4 RBC, negative leukocyte esterase, negative nitrite with occasional bacteria. EKG done showed first-degree AV block. Chest x-ray showed suspected right perihilar mass, vascular congestion and possible lingular infiltrate. Chest CT showed cardiomegaly. No pulmonary edema. He was admitted for cellulitis/pain of the right leg, leukocytosis, hypertension and hypothyroidism. He was seen by infectious disease specialist. He was placed on vancomycin and cefepime pending culture results. Venous duplex of lower extremities were negative for acute DVT. He had waxing and waning of consciousness and was not engaged. Patient was not talking and had impairment of cognition. He was seen by psychiatrist. He was diagnosed with encephalopathy and dementia. He was given Seroquel 12.5 mg prn agitation. He had episodes of hypokalemia and was given potassium supplements. Leukocytosis resolved. Blood culture did not isolate any growth. Urine culture did not isolate any growth. Vancomycin and cefepime were discontinued and was switched to IV Ancef. He was eventually discharged home, to continue oral antibiotics. FINAL DIAGNOSES: Sepsis Right leg cellulitis Acute encephalopathy Possible UTI Hypothyroidism Hypertension Cognitive delay Dementia DISPOSITION: Patient was discharged home. DISCHARGE MEDICATIONS: Refer to Discharge Medication List. Continue with cephalexin 500 mg capsules every 12 hours for 3 more days. DISCHARGE INSTRUCTIONS: Follow up with PCP in a week. I have been assigned to dictate discharge summary on this account, and I was not involved in the patient's management. Sil Musa NP Mar 21, 2018 08:58
== END 2018-03-20 17:00 | disposition home or self-care (01) | DRG 720 ==
LOC: EMR 09:30 → EDBEDREQ 09:42 → 2W 10:40 → EDBEDREQ 12:15 → EDBEDREQSVC 12:15 → EDBEDREQ 13:02 → 2W 13:51 → EDBEDREQSVC 14:20 → EDBEDREQ 14:20 → 4W 14:53
DX: A41.9 Sepsis, unspecified organism (principal); G93.40 Encephalopathy, unspecified; L03.115 Cellulitis of right lower limb; F03.90 Unspecified dementia, unspecified severity, without behavioral disturbance, psychotic disturbance, mood disturbance, and anxiety; N39.0 Urinary tract infection, site not specified; E03.9 Hypothyroidism, unspecified; E87.6 Hypokalemia; I10 Essential (primary) hypertension; I44.0 Atrioventricular block, first degree; I25.10 Atherosclerotic heart disease of native coronary artery without angina pectoris; F79 Unspecified intellectual disabilities
CPT/HCPCS: 36415; 71045; 71250; 80048; 80053; 81001; 81003; 82550; 83605; 84133; 84300; 84550; 85007; 85025; 87040; 87086; 89050; 93005; 93970; 99285; J8499

== ENCOUNTER 2018-05-08 11:51 | Inpatient (IN) | payer MEDICARE, MEDICAID ==
[~2018-05-08] VITALS: Ht 162.6 cm; Wt 72.6 kg
[2018-05-08 12:04] VITALS: BP 127/75
[2018-05-08] MEDS ORDERED: cefTRIAXone 1 GM in NS 55 ML IVPB ONE (13:15)
[2018-05-08 13:56] LABS: HEMATOCRIT 39.4 % (42.0-52.0); HEMOGLOBIN 12.4 G/DL (14.2-18.0); MEAN CORPUSCULAR VOLUME 78 FL (80-99); PLATELET COUNT 267 K/UL (150-450); RED BLOOD COUNT 5.03 M/UL (4.70-6.10)
[2018-05-08 13:58] LABS: WHITE BLOOD COUNT 25.9 K/UL (4.8-10.8)
[2018-05-08 14:04] LABS: ANION GAP 7 mmol/L (5-15); BLOOD UREA NITROGEN 18 mg/dL (7-18); CALCIUM 9.3 MG/DL (8.5-10.1); CARBON DIOXIDE 27 MMOL/L (21-32); CHLORIDE 100 MMOL/L (98-107); CREATININE 1.3 MG/DL (0.55-1.30); POTASSIUM 3.8 MMOL/L (3.5-5.1); SODIUM 134 MMOL/L (136-145)
[2018-05-08 14:19] LABS: ALANINE AMINOTRANSFERASE 21 U/L (12-78); ALBUMIN 3.2 G/DL (3.4-5.0); ALBUMIN/GLOBULIN RATIO 0.6 (1.0-2.7); ALKALINE PHOSPHATASE 104 U/L (46-116); ASPARTATE AMINO TRANSFERASE 25 U/L (15-37); BILIRUBIN,TOTAL 0.8 MG/DL (0.2-1.0)
--- NOTE | 2018-05-08 14:23 | Diagnostic Imaging Report ---
Indication: Dyspnea Comparison: 03/16/2018 A single view chest radiograph was obtained. Findings: Interstitial opacities and prominent vascularity and heart size are demonstrated. Bones are osteopenic. There is an old ununited fracture of the left proximal humerus. IMPRESSION: Congestive heart failure suspected.
[2018-05-08] MEDS ORDERED: Albuterol/Ipratropium 3ml neb HHN PRN (15:30)
[2018-05-08] MEDS ORDERED: Nitroglycerin Subl 0.4mg tab SL PRN (15:30)
[2018-05-08] MEDS ORDERED: Morphine Sulfate 2mg/ml Inj IVP PRN (15:30)
[2018-05-08] MEDS ORDERED: Miralax 17gm pkt ORAL PRN (15:30)
[2018-05-08 15:49] VITALS: BP 133/74
[2018-05-08] MEDS: Cefepime HCl 2 GM in D5W 110 ML IV SCH (17:31)
[2018-05-08 20:00] VITALS: BP 124/58
[2018-05-08] MEDS: Vancomycin 750mg/NS 250ml IVPB SCH (20:41)
[2018-05-08] MEDS: Heparin 5000 units/ml inj SUBQ SCH (20:43)
[2018-05-09] VITALS: BP 91/54
[2018-05-09] MEDS ORDERED: Vancomycin 1 GM in D5W 275 ML IV SCH (00:30)
[2018-05-09 04:00] VITALS: BP 144/82
[2018-05-09 06:36] LABS: HEMATOCRIT 32.8 % (42.0-52.0); HEMOGLOBIN 10.6 G/DL (14.2-18.0); MEAN CORPUSCULAR VOLUME 78 FL (80-99); PLATELET COUNT 203 K/UL (150-450); RED BLOOD COUNT 4.22 M/UL (4.70-6.10); RED CELL DISTRIBUTION WIDTH 14.8 % (11.6-14.8); WHITE BLOOD COUNT 17.1 K/UL (4.8-10.8)
--- NOTE | 2018-05-09 06:36 | Emergency Room Report ---
History of Present Illness General Chief Complaint: Skin Rash/Abscess Source: Medical Record, Caregiver Present Illness HPI 82M developmentally disabled, history per caregiver. Baseline is minimally verbal but alert, recognizes staff etc. Past day has been less alert, more tired. Also redness to right lower leg. Poor appetite. No definite fever. No vomiting. Wears Depends and same urine output. Does not seem to be in pain, just less alert. history is limited due to the clinical condition Allergies: Coded Allergies: No Known Allergies (Unverified , 06/15/12) Nursing Documentation-[facility] Past Medical History: No History, Except For Hx Cardiac Problems: No Hx Hypertension: Yes Hx Cancer: No Hx Gastrointestinal Problems: No Hx Neurological Problems: Yes - developmental delay Hx Memory Loss: Yes Hx Concentration Difficulty: Yes Hx Speech Problem: Yes Hx Aphasia: Yes Hx Weakness: Yes Review of Systems Constitutional: Reports: malaise Eye: Reports: no symptoms ENT: Reports: no symptoms Respiratory: Reports: no symptoms Cardiovascular: Reports: no symptoms Gastrointestinal: Reports: no symptoms Genitourinary: Reports: no symptoms Musculoskeletal: Reports: no symptoms Skin: Reports: see HPI, rash, change in color Psychiatric: Reports: no symptoms Neurological: Reports: no symptoms Endocrine: Reports: no symptoms Hematologic/Lymphatic: Reports: no symptoms Allergic: Reports: no symptoms All Other Systems: limited Physical Exam Vital Signs Date Time Temp Pulse Resp B/P (MAP) Pulse Ox O2 Delivery O2 Flow Rate FiO2 05/08/18 11:57 99.2 112 18 127/75 95 Room Air 99.1 Sp02 EP Interpretation: reviewed, normal General Appearance: normal inspection, well appearing, no apparent distress, alert, GCS 15, non-toxic Head: normocephalic, atraumatic Eyes: bilateral eye normal inspection, bilateral eye PERRL, bilateral eye EOMI ENT: normal ENT inspection, hearing grossly normal, normal pharynx, no angioedema, normal voice, moist mucus membranes Neck: normal inspection, full range of motion, supple, no meningismus, no bony tend Respiratory: normal inspection, lungs clear, normal breath sounds, no rhonchi, no respiratory distress, no retraction, no accessory muscle use, no wheezing Cardiovascular #1: normal inspection, regular rate, rhythm, no edema Gastrointestinal: normal inspection, normal bowel sounds, non tender, soft, no mass, non-distended Musculoskeletal: other - feet deformed Neurologic: normal inspection, alert, responsive, other - awake, looks around, appears tired. atrophied/deformed feet. Psychiatric: normal inspection, judgement/insight normal, memory normal Suicide Risk Assessment: Suicidal Ideation: No Had intent to initiate attempt: No Pt's plan for suicide attempt: No Has means to complete attempt: No Skin: warm/dry, other - cellulitis right mid leg; nvi Medical Decision Making Diagnostic Impression: Primary Impression: Cellulitis of leg, right Additional Impression: Acute encephalopathy Rhythm Strip Diag. Results Rhythm Strip Time: 13:00 EP Interpretation: yes Rhythm: NSR Chest X-Ray Diagnostic Results Chest X-Ray Diagnostic Results : Chest X-Ray Ordered: Yes # of Views/Limited/Complete: 1 View Indication: Other EP Interpretation: Yes PA Xray: Interpretation reviewed Interpretation: other - increased vasc congestion Last Vital Signs Date Time Temp Pulse Resp B/P (MAP) Pulse Ox O2 Delivery O2 Flow Rate FiO2 05/09/18 04:00 97.0 95 16 144/82 (102) 97.0 05/09/18 00:00 95 05/08/18 21:00 Room Air Status: unchanged Disposition: ADMITTED INPATIENT Condition: Serious Referrals: NON PHYSICIAN (PCP) Rosendo Ortiz M.D. May 09, 2018 06:36
[2018-05-09 06:43] LABS: APPEARANCE,URINE CLEAR; BILIRUBIN, URINE NEGATIVE (NEGATIVE); GLUCOSE, URINE (UA) 1+ (NEGATIVE); KETONES,URINE 1+ (NEGATIVE); LEUKOCYTE ESTERASE ,URINE 1+ (NEGATIVE); NITRITE,URINE NEGATIVE (NEGATIVE); PH,URINE 5 (4.5-8.0); PROTEIN,URINE 2+ (NEGATIVE); UROBILINOGEN,URINE NORMAL MG/DL (0.0-1.0)
[2018-05-09 06:52] LABS: COLOR,URINE YELLOW
[2018-05-09 06:57] LABS: ALANINE AMINOTRANSFERASE 19 U/L (12-78); ALBUMIN 2.5 G/DL (3.4-5.0); ALBUMIN/GLOBULIN RATIO 0.5 (1.0-2.7); ALKALINE PHOSPHATASE 83 U/L (46-116); ANION GAP 3 mmol/L (5-15); ASPARTATE AMINO TRANSFERASE 23 U/L (15-37); BILIRUBIN,TOTAL 0.4 MG/DL (0.2-1.0); BLOOD UREA NITROGEN 22 mg/dL (7-18); CALCIUM 8.5 MG/DL (8.5-10.1); CARBON DIOXIDE 29 MMOL/L (21-32); CHLORIDE 102 MMOL/L (98-107); CREATININE 1.6 MG/DL (0.55-1.30); POTASSIUM 3.4 MMOL/L (3.5-5.1); SODIUM 134 MMOL/L (136-145)
[2018-05-09 08:00] VITALS: BP 91/52
[2018-05-09] MEDS: Aspirin Baby 81mg ORAL SCH (08:57)
[2018-05-09] MEDS ORDERED: Furosemide 40mg tab ORAL SCH (09:00)
[2018-05-09] MEDS: Heparin 5000 units/ml inj SUBQ SCH ×2 (09:06→20:39)
[2018-05-09 09:41] LABS: CREATINE KINASE 66 U/L (26-308)
[2018-05-09] MEDS: Sodium Chloride 500ML 550 ML IV SCH ×2 (10:30→20:30)
[2018-05-09] MEDS ORDERED: Potassium Chloride 40 MEQ in Sodium Chloride 500ML 550 ML IVPB SCH (10:30)
[2018-05-09 12:00] VITALS: BP 134/68
--- NOTE | 2018-05-09 13:07 | Consultation ---
History of Present Illness General Date patient seen: May 09, 2018 Chief Complaint: Skin Rash/Abscess Present Illness HPI 82M developmentally disabled,with mmp Allergies: Coded Allergies: No Known Allergies (Unverified , 06/15/12) Medication History Scheduled Amlodipine Besylate* (Amlodipine Besylate*), 2.5 MG ORAL DAILY, (Reported) Aspirin* (Aspir 81*), 81 MG ORAL DAILY, (Reported) Furosemide* (Lasix*), 40 MG ORAL TWICE A DAY, (Reported) Levothyroxine Sodium* (Levothyroxine Sodium*), 75 MCG ORAL DAILY, (Reported) Potassium Chloride* (K-Dur*), 20 MEQ ORAL TWICE A DAY, (Reported) Discontinued Medications Cephalexin* (Keflex*), 500 MG ORAL EVERY 12 HOURS Discontinued Reason: Therapy completed Trimethoprim/Sulfamethoxazole 160/800* (Bactrim Ds Tablet*), 1 TAB ORAL TWICE A DAY Discontinued Reason: Pt stopped taking med Patient History Healthcare decision maker ROHINI MIR (caregiver) Resuscitation status Full Code Advanced Directive on File No Physical Exam Last 24 Hour Vital Signs Date Time Temp Pulse Resp B/P (MAP) Pulse Ox O2 Delivery O2 Flow Rate FiO2 05/09/18 09:00 Room Air 05/09/18 08:59 85 91/52 05/09/18 08:00 97.0 85 91/52 (65) 98 97.0 05/09/18 04:00 97.0 95 16 144/82 (102) 97.0 05/09/18 00:00 97.6 90 17 91/54 (66) 95 97.6 05/08/18 23:41 97.6 05/08/18 22:42 99.9 05/08/18 21:00 Room Air 05/08/18 20:00 99.9 98 18 124/58 (80) 100 99.9 05/08/18 16:14 Room Air 05/08/18 15:49 98.9 78 15 133/74 98 Room Air 98.9 05/08/18 15:49 98.9 78 15 133/74 98 Room Air 99.1 Intake and Output 05/08/18 05/09/18 19:00 07:00 Intake Total 305 ml 250 ml Output Total 200 ml Balance 305 ml 50 ml Intake Oral 0 ml IV Total 55 ml 250 ml Other 250 ml Output Urine Total 200 ml # Bowel Movements 1 Laboratory Tests Test 05/08/18 13:35 05/09/18 06:00 05/09/18 06:05 White Blood Count 25.9 K/UL (4.8-10.8) *H 17.1 K/UL (4.8-10.8) H Red Blood Count 5.03 M/UL (4.70-6.10) 4.22 M/UL (4.70-6.10) L Hemoglobin 12.4 G/DL (14.2-18.0) L 10.6 G/DL (14.2-18.0) L Hematocrit 39.4 % (42.0-52.0) L 32.8 % (42.0-52.0) L Mean Corpuscular Volume 78 FL (80-99) L 78 FL (80-99) L Mean Corpuscular Hemoglobin 24.7 PG (27.0-31.0) L 25.1 PG (27.0-31.0) L Mean Corpuscular Hemoglobin Concent 31.5 G/DL (32.0-36.0) L 32.3 G/DL (32.0-36.0) Red Cell Distribution Width 15.0 % (11.6-14.8) H 14.8 % (11.6-14.8) Platelet Count 267 K/UL (150-450) 203 K/UL (150-450) Mean Platelet Volume 7.7 FL (6.5-10.1) 7.5 FL (6.5-10.1) Neutrophils (%) (Auto) % (45.0-75.0) % (45.0-75.0) Lymphocytes (%) (Auto) % (20.0-45.0) % (20.0-45.0) Monocytes (%) (Auto) % (1.0-10.0) % (1.0-10.0) Eosinophils (%) (Auto) % (0.0-3.0) % (0.0-3.0) Basophils (%) (Auto) % (0.0-2.0) % (0.0-2.0) Differential Total Cells Counted 100 100 Neutrophils % (Manual) 71 % (45-75) 89 % (45-75) H Lymphocytes % (Manual) 1 % (20-45) L 5 % (20-45) L Monocytes % (Manual) 5 % (1-10) 5 % (1-10) Eosinophils % (Manual) 1 % (0-3) 1 % (0-3) Basophils % (Manual) 0 % (0-2) 0 % (0-2) Band Neutrophils 22 % (0-8) H 0 % (0-8) Platelet Estimate Adequate Adequate Platelet Morphology Normal Normal Hypochromasia 1+ 1+ Microcytosis 2+ 1+ Sodium Level 134 MMOL/L (136-145) L 134 MMOL/L (136-145) L Potassium Level 3.8 MMOL/L (3.5-5.1) 3.4 MMOL/L (3.5-5.1) L Chloride Level 100 MMOL/L (98-107) 102 MMOL/L (98-107) Carbon Dioxide Level 27 MMOL/L (21-32) 29 MMOL/L (21-32) Anion Gap 7 mmol/L (5-15) 3 mmol/L (5-15) L Blood Urea Nitrogen 18 mg/dL (7-18) 22 mg/dL (7-18) H Creatinine 1.3 MG/DL (0.55-1.30) 1.6 MG/DL (0.55-1.30) H Estimat Glomerular Filtration Rate mL/min (>60) mL/min (>60) Glucose Level 141 MG/DL (74-106) H 97 MG/DL (74-106) Lactic Acid Level 1.60 mmol/L (0.4-2.0) Calcium Level 9.3 MG/DL (8.5-10.1) 8.5 MG/DL (8.5-10.1) Total Bilirubin 0.8 MG/DL (0.2-1.0) 0.4 MG/DL (0.2-1.0) Aspartate Amino Transf (AST/SGOT) 25 U/L (15-37) 23 U/L (15-37) Alanine Aminotransferase (ALT/SGPT) 21 U/L (12-78) 19 U/L (12-78) Alkaline Phosphatase 104 U/L (46-116) 83 U/L (46-116) Total Protein 8.4 G/DL (6.4-8.2) H 7.1 G/DL (6.4-8.2) Albumin 3.2 G/DL (3.4-5.0) L 2.5 G/DL (3.4-5.0) L Globulin 5.2 g/dL 4.6 g/dL Albumin/Globulin Ratio 0.6 (1.0-2.7) L 0.5 (1.0-2.7) L Urine Color Yellow Urine Appearance Clear Urine pH 5 (4.5-8.0) Urine Specific [place] 1.010 (1.005-1.035) Urine Protein 2+ (NEGATIVE) H Urine Glucose (UA) 1+ (NEGATIVE) H Urine Ketones 1+ (NEGATIVE) H Urine Blood 1+ (NEGATIVE) H Urine Nitrite Negative (NEGATIVE) Urine Bilirubin Negative (NEGATIVE) Urine Urobilinogen Normal MG/DL (0.0-1.0) Urine Leukocyte Esterase 1+ (NEGATIVE) H Urine RBC 0-2 /HPF (0 - 0) H Urine WBC 2-4 /HPF (0 - 0) Urine Squamous Epithelial Cells Few /LPF (NONE/OCC) Urine Bacteria Occasional /HPF (NONE) Anisocytosis 1+ Uric Acid 5.5 MG/DL (2.6-7.2) Total Creatine Kinase 66 U/L (26-308) Height (Feet): 5 Height (Inches): 4.00 Weight (Pounds): 160 Medications Current Medications Medications (Trade) Dose Ordered Sig/Brian Route PRN Reason Start Time Stop Time Status Last Admin Dose Admin Acetaminophen (Tylenol) 650 mg Q4H PRN ORAL fever 05/08/18 15:30 06/07/18 15:29 05/08/18 22:42 Albuterol/ Ipratropium (Albuterol/ Ipratropium) 3 ml Q4H PRN HHN Shortness of Breath 05/08/18 15:30 05/13/18 15:29 Amlodipine Besylate (Norvasc) 2.5 mg DAILY ORAL 05/09/18 09:00 06/08/18 08:59 Aspirin (ASA) 81 mg DAILY ORAL 05/09/18 09:00 06/08/18 08:59 05/09/18 08:57 Cefepime HCl 2 gm/ Dextrose 110 ml @ 220 mls/hr Q24H IV 05/08/18 17:00 05/15/18 16:59 05/08/18 17:31 Heparin Sodium (Porcine) (Heparin 5000 units/ml) 5,000 units EVERY 12 HOURS SUBQ 05/08/18 21:00 06/07/18 20:59 05/09/18 09:06 Levothyroxine Sodium (Synthroid) 75 mcg DAILY@0630 ORAL 05/09/18 06:30 06/08/18 06:29 05/09/18 06:19 Morphine Sulfate (Morphine Sulfate) 2 mg Q4H PRN IVP Moderate Pain (Pain Scale 4-6) 05/08/18 15:30 05/15/18 15:29 Nitroglycerin (Ntg) 0.4 mg Q5M PRN SL Prn Chest Pain 05/08/18 15:30 06/07/18 15:29 Ondansetron HCl (Zofran) 4 mg Q6H PRN IVP Nausea & Vomiting 05/08/18 15:30 06/07/18 15:29 Polyethylene Glycol (Miralax) 17 gm DAILYPRN PRN ORAL Constipation 05/08/18 15:30 06/07/18 15:29 Potassium Chloride 40 meq/ Sodium Chloride 570 ml @ 142.5 mls/ hr ONCE IVPB 05/09/18 10:30 05/09/18 15:00 05/09/18 10:34 Potassium Chloride (K-Dur) 20 meq TWICE A DAY ORAL 05/09/18 09:00 06/08/18 08:59 05/09/18 08:58 Sodium Chloride 550 ml @ 50 mls/hr Q11H IV 05/09/18 09:30 06/08/18 09:29 05/09/18 10:30 Temazepam (Restoril) 15 mg HSPRN PRN ORAL Insomnia 05/08/18 15:30 05/15/18 15:29 Vancomycin/Sodium Chloride 250 ml @ 166.667 mls/hr Q24H IVPB 05/08/18 20:00 05/13/18 19:59 05/08/18 20:41 Assessment/Plan Status: stable Assessment/Plan DD Encephalopathy due to [facility] remeron restoril Loulou Gutierrez MD May 09, 2018 13:07
[2018-05-09] MEDS ORDERED: LORazepam 1mg tab ORAL PRN (13:15)
--- NOTE | 2018-05-09 14:20 | Consultation ---
History of Present Illness General Date patient seen: May 09, 2018 Chief Complaint: Skin Rash/Abscess Present Illness HPI 82 year old male with hx of developmentally disabled,brought in to ER for evaluation of change in metal status. He has been less alert, more tired. Also redness to right lower leg. Poor appetite. No definite fever. No vomiting. He was diagnosed to have cellulitis and sepsis and admitted for further evaluation. Allergies: Coded Allergies: No Known Allergies (Unverified , 06/15/12) Medication History Scheduled Amlodipine Besylate* (Amlodipine Besylate*), 2.5 MG ORAL DAILY, (Reported) Aspirin* (Aspir 81*), 81 MG ORAL DAILY, (Reported) Furosemide* (Lasix*), 40 MG ORAL TWICE A DAY, (Reported) Levothyroxine Sodium* (Levothyroxine Sodium*), 75 MCG ORAL DAILY, (Reported) Potassium Chloride* (K-Dur*), 20 MEQ ORAL TWICE A DAY, (Reported) Discontinued Medications Cephalexin* (Keflex*), 500 MG ORAL EVERY 12 HOURS Discontinued Reason: Therapy completed Trimethoprim/Sulfamethoxazole 160/800* (Bactrim Ds Tablet*), 1 TAB ORAL TWICE A DAY Discontinued Reason: Pt stopped taking med Patient History Healthcare decision maker ROHINI HESTER (caregiver) Resuscitation status Full Code Advanced Directive on File No Past Medical/Surgical History Past Medical/Surgical History: (1) Hypothyroidism (2) HTN (hypertension) (3) Developmental delay Review of Systems All Other Systems: negative except mentioned in HPI Physical Exam General Appearance: WD/WN Lines, tubes and drains: peripheral HEENT: normocephalic, atraumatic Respiratory/Chest: chest wall non-tender, lungs clear Breasts: no masses Cardiovascular/Chest: normal peripheral pulses Abdomen: normal bowel sounds Genitourinary/Rectal: normal genital exam Extremities: normal range of motion Neurologic: boiler tester II-XII grossly normal Lymphatic: anterior cervical Last 24 Hour Vital Signs Date Time Temp Pulse Resp B/P (MAP) Pulse Ox O2 Delivery O2 Flow Rate FiO2 05/09/18 12:00 98.6 79 134/68 (90) 98 98.6 05/09/18 09:00 Room Air 05/09/18 08:59 85 91/52 05/09/18 08:00 97.0 85 91/52 (65) 98 97.0 05/09/18 04:00 97.0 95 16 144/82 (102) 97.0 05/09/18 00:00 97.6 90 17 91/54 (66) 95 97.6 05/08/18 23:41 97.6 05/08/18 22:42 99.9 05/08/18 21:00 Room Air 05/08/18 20:00 99.9 98 18 124/58 (80) 100 99.9 05/08/18 16:14 Room Air 05/08/18 15:49 98.9 78 15 133/74 98 Room Air 98.9 05/08/18 15:49 98.9 78 15 133/74 98 Room Air 99.1 Intake and Output 05/08/18 05/09/18 19:00 07:00 Intake Total 305 ml 250 ml Output Total 200 ml Balance 305 ml 50 ml Intake Oral 0 ml IV Total 55 ml 250 ml Other 250 ml Output Urine Total 200 ml # Bowel Movements 1 Laboratory Tests Test 05/09/18 06:00 05/09/18 06:05 Urine Color Yellow Urine Appearance Clear Urine pH 5 (4.5-8.0) Urine Specific [place] 1.010 (1.005-1.035) Urine Protein 2+ (NEGATIVE) H Urine Glucose (UA) 1+ (NEGATIVE) H Urine Ketones 1+ (NEGATIVE) H Urine Blood 1+ (NEGATIVE) H Urine Nitrite Negative (NEGATIVE) Urine Bilirubin Negative (NEGATIVE) Urine Urobilinogen Normal MG/DL (0.0-1.0) Urine Leukocyte Esterase 1+ (NEGATIVE) H Urine RBC 0-2 /HPF (0 - 0) H Urine WBC 2-4 /HPF (0 - 0) Urine Squamous Epithelial Cells Few /LPF (NONE/OCC) Urine Bacteria Occasional /HPF (NONE) White Blood Count 17.1 K/UL (4.8-10.8) H Red Blood Count 4.22 M/UL (4.70-6.10) L Hemoglobin 10.6 G/DL (14.2-18.0) L Hematocrit 32.8 % (42.0-52.0) L Mean Corpuscular Volume 78 FL (80-99) L Mean Corpuscular Hemoglobin 25.1 PG (27.0-31.0) L Mean Corpuscular Hemoglobin Concent 32.3 G/DL (32.0-36.0) Red Cell Distribution Width 14.8 % (11.6-14.8) Platelet Count 203 K/UL (150-450) Mean Platelet Volume 7.5 FL (6.5-10.1) Neutrophils (%) (Auto) % (45.0-75.0) Lymphocytes (%) (Auto) % (20.0-45.0) Monocytes (%) (Auto) % (1.0-10.0) Eosinophils (%) (Auto) % (0.0-3.0) Basophils (%) (Auto) % (0.0-2.0) Differential Total Cells Counted 100 Neutrophils % (Manual) 89 % (45-75) H Lymphocytes % (Manual) 5 % (20-45) L Monocytes % (Manual) 5 % (1-10) Eosinophils % (Manual) 1 % (0-3) Basophils % (Manual) 0 % (0-2) Band Neutrophils 0 % (0-8) Platelet Estimate Adequate Platelet Morphology Normal Hypochromasia 1+ Anisocytosis 1+ Microcytosis 1+ Sodium Level 134 MMOL/L (136-145) L Potassium Level 3.4 MMOL/L (3.5-5.1) L Chloride Level 102 MMOL/L (98-107) Carbon Dioxide Level 29 MMOL/L (21-32) Anion Gap 3 mmol/L (5-15) L Blood Urea Nitrogen 22 mg/dL (7-18) H Creatinine 1.6 MG/DL (0.55-1.30) H Estimat Glomerular Filtration Rate mL/min (>60) Glucose Level 97 MG/DL (74-106) Uric Acid 5.5 MG/DL (2.6-7.2) Calcium Level 8.5 MG/DL (8.5-10.1) Total Bilirubin 0.4 MG/DL (0.2-1.0) Aspartate Amino Transf (AST/SGOT) 23 U/L (15-37) Alanine Aminotransferase (ALT/SGPT) 19 U/L (12-78) Alkaline Phosphatase 83 U/L (46-116) Total Creatine Kinase 66 U/L (26-308) Total Protein 7.1 G/DL (6.4-8.2) Albumin 2.5 G/DL (3.4-5.0) L Globulin 4.6 g/dL Albumin/Globulin Ratio 0.5 (1.0-2.7) L Height (Feet): 5 Height (Inches): 4.00 Weight (Pounds): 160 Medications Current Medications Medications (Trade) Dose Ordered Sig/Brian Route PRN Reason Start Time Stop Time Status Last Admin Dose Admin Acetaminophen (Tylenol) 650 mg Q4H PRN ORAL fever 05/08/18 15:30 06/07/18 15:29 05/08/18 22:42 Albuterol/ Ipratropium (Albuterol/ Ipratropium) 3 ml Q4H PRN HHN Shortness of Breath 05/08/18 15:30 05/13/18 15:29 Amlodipine Besylate (Norvasc) 2.5 mg DAILY ORAL 05/09/18 09:00 06/08/18 08:59 Aspirin (ASA) 81 mg DAILY ORAL 05/09/18 09:00 06/08/18 08:59 05/09/18 08:57 Cefepime HCl 2 gm/ Dextrose 110 ml @ 220 mls/hr Q24H IV 05/08/18 17:00 05/15/18 16:59 05/08/18 17:31 Heparin Sodium (Porcine) (Heparin 5000 units/ml) 5,000 units EVERY 12 HOURS SUBQ 05/08/18 21:00 06/07/18 20:59 05/09/18 09:06 Levothyroxine Sodium (Synthroid) 75 mcg DAILY@0630 ORAL 05/09/18 06:30 06/08/18 06:29 05/09/18 06:19 Lorazepam (Ativan) 1 mg Q6H PRN ORAL For Anxiety 05/09/18 13:15 05/16/18 13:14 Morphine Sulfate (Morphine Sulfate) 2 mg Q4H PRN IVP Moderate Pain (Pain Scale 4-6) 05/08/18 15:30 05/15/18 15:29 Nitroglycerin (Ntg) 0.4 mg Q5M PRN SL Prn Chest Pain 05/08/18 15:30 06/07/18 15:29 Ondansetron HCl (Zofran) 4 mg Q6H PRN IVP Nausea & Vomiting 05/08/18 15:30 06/07/18 15:29 Polyethylene Glycol (Miralax) 17 gm DAILYPRN PRN ORAL Constipation 05/08/18 15:30 06/07/18 15:29 Potassium Chloride 40 meq/ Sodium Chloride 570 ml @ 142.5 mls/ hr ONCE IVPB 05/09/18 10:30 05/09/18 15:00 05/09/18 10:34 Potassium Chloride (K-Dur) 20 meq TWICE A DAY ORAL 05/09/18 09:00 06/08/18 08:59 05/09/18 08:58 Sodium Chloride 550 ml @ 50 mls/hr Q11H IV 05/09/18 09:30 06/08/18 09:29 05/09/18 10:30 Temazepam (Restoril) 15 mg HSPRN PRN ORAL Insomnia 05/08/18 15:30 05/15/18 15:29 Vancomycin/Sodium Chloride 250 ml @ 166.667 mls/hr Q24H IVPB 05/08/18 20:00 05/13/18 19:59 05/08/18 20:41 Assessment/Plan Problem List: (1) Sepsis ICD Codes: A41.9 - Sepsis, unspecified organism SNOMED: 37643986 (2) Cellulitis ICD Codes: L03.90 - Cellulitis SNOMED: 846943658 (3) Tachycardia ICD Codes: R00.0 - Tachycardia, unspecified SNOMED: 1581859 (4) Hypothyroidism ICD Codes: E03.9 - Hypothyroidism, unspecified SNOMED: 23527423 (5) HTN (hypertension) ICD Codes: I10 - Essential (primary) hypertension SNOMED: 68511524 (6) Developmental delay ICD Codes: R62.50 - Unspecified lack of expected normal physiological development in childhood SNOMED: 375433790 Assessment/Plan pann cultures iv fluids iv abx ID evaluatin symptomatic treatment psych evaluation monitor BP dvt prophylaxis Yolanda Lazcano MD May 09, 2018 14:20
[2018-05-09 16:00] VITALS: BP 143/74
[2018-05-09] MEDS: Cefepime HCl 2 GM in D5W 110 ML IV SCH (16:55)
[2018-05-09 17:21] LABS: APPEARANCE,URINE CLEAR; BILIRUBIN, URINE NEGATIVE (NEGATIVE); COLOR,URINE PALE YELLOW; GLUCOSE, URINE (UA) NEGATIVE (NEGATIVE); KETONES,URINE NEGATIVE (NEGATIVE); LEUKOCYTE ESTERASE ,URINE NEGATIVE (NEGATIVE); NITRITE,URINE NEGATIVE (NEGATIVE); PH,URINE 5 (4.5-8.0); PROTEIN,URINE 1+ (NEGATIVE); UROBILINOGEN,URINE NORMAL MG/DL (0.0-1.0)
[2018-05-09] MEDS: Vancomycin 750mg/NS 250ml IVPB SCH (19:49)
[2018-05-09 20:00] VITALS: BP 147/73
--- NOTE | 2018-05-09 20:10 | History & Physical ---
History and Physical History & Physicial Dictated for Int Med-Dr Faria no. [id number]. Chicho Ring MD May 09, 2018 20:10
[2018-05-10] VITALS: BP 98/71
--- NOTE | 2018-05-10 00:30 | History and Physical Report ---
DATE OF ADMISSION: 05/08/2018 CHIEF COMPLAINT: The patient is an 82-year-old white male, who presents with a chief complaint of right leg pain and redness. HISTORY OF PRESENT ILLNESS: The patient himself is developmentally delayed. The patient is here with his caregiver. Much of the history and physical is obtained from the patient's caregiver. According to the caregiver, the patient began to have pain in the right lower extremity for the last couple of days. It has become increasingly red. The patient presented to [facility] emergency room. The patient is admitted for cellulitis of the right lower extremity. PAST MEDICAL HISTORY: Significant for, 1. Hypertension 2. Hypothyroidism. PAST SURGICAL HISTORY: The patient denies. CURRENT MEDICATIONS: 1. Amlodipine 2.5 mg one tablet p.o. daily. 2. Aspirin 81 mg one tablet p.o. daily. 3. Lasix 40 mg p.o. twice daily. 4. Levoxyl 0.075 mg p.o. daily. 5. Potassium chloride 20 mEq p.o. twice daily. ALLERGIES: No known drug allergies. SOCIAL HISTORY: The patient is single and lives with caregivers. The patient denies tobacco or alcohol use. REVIEW OF SYSTEMS: Unable to assess secondary to patient's mental status. PHYSICAL EXAMINATION: VITAL SIGNS: Temperature 98.6, respirations 20, pulse 79, and blood pressure 134/68. GENERAL: The patient is a well-developed and well-nourished white male, in no apparent distress. HEENT: Eyes, pupils are equal and responsive to light and accommodation. Extraocular movements are intact. NECK: Supple without lymphadenopathy. CHEST: Lungs are clear to auscultation bilaterally without wheezes or rales. CARDIOVASCULAR: Regular rhythm and rate. S1 and S2 are normal without murmurs, rubs, or gallops. ABDOMEN: Soft, nontender, and nondistended. Positive bowel sounds. No evidence of hepatosplenomegaly. Currently, no rebound or guarding noted. EXTREMITIES: EXTREMITIES: There is erythema in the right distal lower extremity. Otherwise, without clubbing, cyanosis, or edema. RECTAL/GENITAL: Refused. NEUROLOGIC: Cranial nerves II through XII are grossly intact without focal deficits. Motor strength is 5/5 bilaterally. Deep tendon reflexes are 2+ plantar. LABORATORY STUDIES: WBC 25.9, hemoglobin 12.4, hematocrit 39.4, and platelets 267,000. Sodium 134, potassium 3.8, chloride 100, CO2 27, BUN 18, creatinine 1.3, and glucose 141. Chest x-ray is consistent with congestive heart failure. ASSESSMENT: This is an 82-year-old white male. 1. Cellulitis of the right lower extremity. 2. Leukocytosis. 3. Pain of the right leg. 4. Hypertension. 5. Hypothyroidism. TREATMENT: 1. Cellulitis of the right lower extremity/pain of the right lower extremity. The patient has been started empirically on vancomycin and cefepime. We will follow recommendations of Infectious Disease. Blood cultures are pending. 2. Hypertension. Continue Norvasc as above. 3. Hypothyroidism. Continue Levoxyl as above. 4. Congestive heart failure. A BNP is pending. A Cardiology consultation is obtained with Dr. Romie Mukherjee. Chicho Ring M.D. DR: TAMMY JOB#: [id number] CC:
[2018-05-10 04:00] VITALS: BP 139/79
[2018-05-10] MEDS: Sodium Chloride 500ML 550 ML IV SCH ×2 (06:43→17:37)
[2018-05-10 06:55] LABS: INR 1.1 (0.9-1.1)
[2018-05-10 06:57] LABS: BASOPHILS % (AUTO) 0.3 % (0.0-2.0); HEMATOCRIT 34.6 % (42.0-52.0); HEMOGLOBIN 11.4 G/DL (14.2-18.0); LYMPHOCYTES % (AUTO) 6.7 % (20.0-45.0); MEAN CORPUSCULAR VOLUME 78 FL (80-99); MONOCYTES % (AUTO) 11.7 % (1.0-10.0); NEUTROPHILS % (AUTO) 79.3 % (45.0-75.0); PLATELET COUNT 220 K/UL (150-450); RED BLOOD COUNT 4.45 M/UL (4.70-6.10); RED CELL DISTRIBUTION WIDTH 14.8 % (11.6-14.8); WHITE BLOOD COUNT 12.2 K/UL (4.8-10.8)
[2018-05-10 07:47] LABS: ALANINE AMINOTRANSFERASE 26 U/L (12-78); ALBUMIN 2.6 G/DL (3.4-5.0); ALBUMIN/GLOBULIN RATIO 0.5 (1.0-2.7); ALKALINE PHOSPHATASE 90 U/L (46-116); ANION GAP 9 mmol/L (5-15); ASPARTATE AMINO TRANSFERASE 31 U/L (15-37); BILIRUBIN,TOTAL 0.3 MG/DL (0.2-1.0); BLOOD UREA NITROGEN 20 mg/dL (7-18); CALCIUM 8.9 MG/DL (8.5-10.1); CARBON DIOXIDE 23 MMOL/L (21-32); CHLORIDE 107 MMOL/L (98-107); CREATININE 1.1 MG/DL (0.55-1.30); PHOSPHORUS 1.9 MG/DL (2.5-4.9); POTASSIUM 3.9 MMOL/L (3.5-5.1); SODIUM 138 MMOL/L (136-145)
[2018-05-10 08:00] VITALS: BP 137/71
[2018-05-10] MEDS: Heparin 5000 units/ml inj SUBQ SCH ×2 (08:04→20:26)
[2018-05-10] MEDS: Aspirin Baby 81mg ORAL SCH (08:05)
[2018-05-10 12:00] VITALS: BP 130/74
--- NOTE | 2018-05-10 12:30 | Pulmonology Progress Note ---
Assessment/Plan Problems: (1) Sepsis (2) COPD (chronic obstructive pulmonary disease) (3) Cellulitis (4) Tachycardia (5) Hypothyroidism (6) HTN (hypertension) (7) Developmental delay Assessment/Plan f/u cultures continue abx respiratory treatment check electrolytes monitor BP Subjective ROS Limited/Unobtainable: No Constitutional: Reports: no symptoms HEENT: Repors: no symptoms Respiratory: Reports: no symptoms Allergies: Coded Allergies: No Known Allergies (Unverified , 06/15/12) Objective Last 24 Hour Vital Signs Date Time Temp Pulse Resp B/P (MAP) Pulse Ox O2 Delivery O2 Flow Rate FiO2 05/10/18 12:00 97.5 78 20 130/74 (92) 100 97.5 05/10/18 09:10 83 20 Room Air 05/10/18 09:00 Room Air 05/10/18 08:10 88 137/71 05/10/18 08:00 97.5 88 19 137/71 (93) 100 97.5 05/10/18 04:00 98.2 82 20 139/79 (99) 98 98.2 05/10/18 00:00 97.3 99 20 98/71 (80) 97 97.3 05/09/18 20:47 Room Air 05/09/18 20:00 99.1 96 20 147/73 (97) 98 99.1 05/09/18 19:36 88 20 Room Air 05/09/18 16:00 98.0 87 143/74 (97) 98.0 Intake and Output 05/09/18 05/10/18 19:00 07:00 Intake Total 820 ml 670.000 ml Balance 820 ml 670.000 ml Intake Oral 120 ml IV Total 550.000 ml Other 820 ml # Voids 3 2 General Appearance: WD/WN HEENT: normocephalic, anicteric Respiratory/Chest: chest wall non-tender, lungs clear Cardiovascular: normal peripheral pulses, normal rate Abdomen: normal bowel sounds, soft, non tender Genitourinary: normal external genitalia Skin: no rash Neurologic/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: 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 normal Microbiology Date/Time Source Procedure Growth Status 05/08/18 13:45 Blood Blood Culture - Preliminary NO GROWTH AFTER 24 HOURS Resulted 05/08/18 13:35 Blood Blood Culture - Preliminary NO GROWTH AFTER 24 HOURS Resulted 05/09/18 06:00 Indwelling Cath Urine Culture - Preliminary Resulted Laboratory Tests 05/10/18 06:10: White Blood Count 12.2H, Red Blood Count 4.45L, Hemoglobin 11.4L, Hematocrit 34.6L, Mean Corpuscular Volume 78L, Mean Corpuscular Hemoglobin 25.6L, Mean Corpuscular Hemoglobin Concent 33.0, Red Cell Distribution Width 14.8, Platelet Count 220, Mean Platelet Volume 7.8, Neutrophils (%) (Auto) 79.3H, Lymphocytes ( %) (Auto) 6.7L, Monocytes (%) (Auto) 11.7H, Eosinophils (%) (Auto) 2.0, Basophils (%) (Auto) 0.3, Prothrombin Time 11.5, Prothromb Time International Ratio 1.1, Activated Partial Thromboplast Time 33, Sodium Level 138, Potassium Level 3.9, Chloride Level 107, Carbon Dioxide Level 23, Anion Gap 9, Blood Urea Nitrogen 20H, Creatinine 1.1, Estimat Glomerular Filtration Rate , Glucose Level 92, Calcium Level 8.9, Phosphorus Level 1.9L, Magnesium Level 2.2, Total Bilirubin 0.3, Aspartate Amino Transf (AST/SGOT) 31, Alanine Aminotransferase ( ALT/SGPT) 26, Alkaline Phosphatase 90, Troponin I 0.017, Pro-B-Type Natriuretic Peptide 1163H, Total Protein 7.7, Albumin 2.6L, Globulin 5.1, Albumin/Globulin Ratio 0.5L Current Medications Medications (Trade) Dose Ordered Sig/Brian Route PRN Reason Start Time Stop Time Status Last Admin Dose Admin Acetaminophen (Tylenol) 650 mg Q4H PRN ORAL fever 05/08/18 15:30 06/07/18 15:29 05/08/18 22:42 Albuterol/ Ipratropium (Albuterol/ Ipratropium) 3 ml Q4H PRN HHN Shortness of Breath 05/08/18 15:30 05/13/18 15:29 Amlodipine Besylate (Norvasc) 2.5 mg DAILY ORAL 05/09/18 09:00 06/08/18 08:59 05/10/18 08:10 Aspirin (ASA) 81 mg DAILY ORAL 05/09/18 09:00 06/08/18 08:59 05/10/18 08:05 Cefepime HCl 2 gm/ Dextrose 110 ml @ 220 mls/hr Q24H IV 05/08/18 17:00 05/15/18 16:59 05/09/18 16:55 Heparin Sodium (Porcine) (Heparin 5000 units/ml) 5,000 units EVERY 12 HOURS SUBQ 05/08/18 21:00 06/07/18 20:59 05/10/18 08:04 Levothyroxine Sodium (Synthroid) 75 mcg DAILY@0630 ORAL 05/09/18 06:30 06/08/18 06:29 05/10/18 06:42 Lorazepam (Ativan) 1 mg Q6H PRN ORAL For Anxiety 05/09/18 13:15 05/16/18 13:14 Morphine Sulfate (Morphine Sulfate) 2 mg Q4H PRN IVP Moderate Pain (Pain Scale 4-6) 05/08/18 15:30 05/15/18 15:29 Nitroglycerin (Ntg) 0.4 mg Q5M PRN SL Prn Chest Pain 05/08/18 15:30 06/07/18 15:29 Ondansetron HCl (Zofran) 4 mg Q6H PRN IVP Nausea & Vomiting 05/08/18 15:30 06/07/18 15:29 Polyethylene Glycol (Miralax) 17 gm DAILYPRN PRN ORAL Constipation 05/08/18 15:30 06/07/18 15:29 Potassium Chloride (K-Dur) 20 meq TWICE A DAY ORAL 05/09/18 09:00 06/08/18 08:59 05/10/18 08:10 Sodium Chloride 550 ml @ 50 mls/hr Q11H IV 05/09/18 09:30 06/08/18 09:29 05/10/18 06:43 Temazepam (Restoril) 15 mg HSPRN PRN ORAL Insomnia 05/08/18 15:30 05/15/18 15:29 Vancomycin HCl (Vanco rx to dose) 1 ea DAILY PRN MISC PER RX PROTOCOL 05/10/18 11:30 06/09/18 11:29 Vancomycin/Sodium Chloride 250 ml @ 166.667 mls/hr Q24H IVPB 05/08/18 20:00 05/13/18 19:59 05/09/18 19:49 Yolanda Lazcano MD May 10, 2018 12:30
[2018-05-10 16:00] VITALS: BP 149/78
--- NOTE | 2018-05-10 16:48 | Consultation ---
Consult Note Consult Note cont ID # [id number] Adolfo Richards MD May 10, 2018 16:48
--- NOTE | 2018-05-10 19:59 | Internal Med Progress Note ---
Subjective Date of Service: May 10, 2018 Physician Name Chicho Ring Attending Physician Librado Faria MD Current Medications Medications (Trade) Dose Ordered Sig/Brian Route PRN Reason Start Time Stop Time Status Last Admin Dose Admin Acetaminophen (Tylenol) 650 mg Q4H PRN ORAL fever 05/08/18 15:30 06/07/18 15:29 05/08/18 22:42 Albuterol/ Ipratropium (Albuterol/ Ipratropium) 3 ml Q4H PRN HHN Shortness of Breath 05/08/18 15:30 05/13/18 15:29 Amlodipine Besylate (Norvasc) 2.5 mg DAILY ORAL 05/09/18 09:00 06/08/18 08:59 05/10/18 08:10 Aspirin (ASA) 81 mg DAILY ORAL 05/09/18 09:00 06/08/18 08:59 05/10/18 08:05 Heparin Sodium (Porcine) (Heparin 5000 units/ml) 5,000 units EVERY 12 HOURS SUBQ 05/08/18 21:00 06/07/18 20:59 05/10/18 08:04 Levothyroxine Sodium (Synthroid) 75 mcg DAILY@0630 ORAL 05/09/18 06:30 06/08/18 06:29 05/10/18 06:42 Lorazepam (Ativan) 1 mg Q6H PRN ORAL For Anxiety 05/09/18 13:15 05/16/18 13:14 Morphine Sulfate (Morphine Sulfate) 2 mg Q4H PRN IVP Moderate Pain (Pain Scale 4-6) 05/08/18 15:30 05/15/18 15:29 Nitroglycerin (Ntg) 0.4 mg Q5M PRN SL Prn Chest Pain 05/08/18 15:30 06/07/18 15:29 Ondansetron HCl (Zofran) 4 mg Q6H PRN IVP Nausea & Vomiting 05/08/18 15:30 06/07/18 15:29 Polyethylene Glycol (Miralax) 17 gm DAILYPRN PRN ORAL Constipation 05/08/18 15:30 06/07/18 15:29 Potassium Chloride (K-Dur) 20 meq TWICE A DAY ORAL 05/09/18 09:00 06/08/18 08:59 05/10/18 17:37 Sodium Chloride 550 ml @ 50 mls/hr Q11H IV 05/09/18 09:30 06/08/18 09:29 05/10/18 17:37 Temazepam (Restoril) 15 mg HSPRN PRN ORAL Insomnia 05/08/18 15:30 05/15/18 15:29 Vancomycin HCl (Vanco rx to dose) 1 ea DAILY PRN MISC PER RX PROTOCOL 05/10/18 11:30 06/09/18 11:29 Vancomycin/Sodium Chloride 250 ml @ 166.667 mls/hr Q24H IVPB 05/08/18 20:00 05/13/18 19:59 05/09/18 19:49 Allergies: Coded Allergies: No Known Allergies (Unverified , 06/15/12) ROS Limited/Unobtainable: No Constitutional: Reports: no symptoms HEENT: Reports: no symptoms Cardiovascular: Reports: no symptoms Respiratory: Reports: no symptoms Gastrointestinal/Abdominal: Reports: no symptoms Genitourinary: Reports: no symptoms Neurologic/Psychiatric: Reports: no symptoms Subjective 82 YO M admitted with right leg pain. Now cellulitis right leg. Cover for Int Jaswinder-Dr Faria Objective Last Vital Signs Date Time Temp Pulse Resp B/P (MAP) Pulse Ox O2 Delivery O2 Flow Rate FiO2 05/10/18 16:00 97.9 87 20 149/78 (101) 98 97.9 05/10/18 09:10 Room Air General Appearance: WD/WN, no apparent distress, alert EENT: PERRL/EOMI, normal ENT inspection Neck: non-tender, normal alignment, supple, normal inspection Cardiovascular: normal peripheral pulses, normal rate, regular rhythm, no gallop/murmur, no JVD Respiratory/Chest: chest wall non-tender, lungs clear, normal breath sounds, no respiratory distress, no accessory muscle use Abdomen: normal bowel sounds, non tender, soft, no organomegaly, no mass Extremities: normal range of motion, non-tender Edema: trace edema Neurologic: mixing technician II-XII grossly normal, no motor/sensory deficits Skin: normal pigmentation, warm/dry, other - erythema right leg Laboratory Tests Test 05/10/18 06:10 White Blood Count 12.2 K/UL (4.8-10.8) H Red Blood Count 4.45 M/UL (4.70-6.10) L Hemoglobin 11.4 G/DL (14.2-18.0) L Hematocrit 34.6 % (42.0-52.0) L Mean Corpuscular Volume 78 FL (80-99) L Mean Corpuscular Hemoglobin 25.6 PG (27.0-31.0) L Mean Corpuscular Hemoglobin Concent 33.0 G/DL (32.0-36.0) Red Cell Distribution Width 14.8 % (11.6-14.8) Platelet Count 220 K/UL (150-450) Mean Platelet Volume 7.8 FL (6.5-10.1) Neutrophils (%) (Auto) 79.3 % (45.0-75.0) H Lymphocytes (%) (Auto) 6.7 % (20.0-45.0) L Monocytes (%) (Auto) 11.7 % (1.0-10.0) H Eosinophils (%) (Auto) 2.0 % (0.0-3.0) Basophils (%) (Auto) 0.3 % (0.0-2.0) Prothrombin Time 11.5 SEC (9.30-11.50) Prothromb Time International Ratio 1.1 (0.9-1.1) Activated Partial Thromboplast Time 33 SEC (23-33) Sodium Level 138 MMOL/L (136-145) Potassium Level 3.9 MMOL/L (3.5-5.1) Chloride Level 107 MMOL/L (98-107) Carbon Dioxide Level 23 MMOL/L (21-32) Anion Gap 9 mmol/L (5-15) Blood Urea Nitrogen 20 mg/dL (7-18) H Creatinine 1.1 MG/DL (0.55-1.30) Estimat Glomerular Filtration Rate mL/min (>60) Glucose Level 92 MG/DL (74-106) Calcium Level 8.9 MG/DL (8.5-10.1) Phosphorus Level 1.9 MG/DL (2.5-4.9) L Magnesium Level 2.2 MG/DL (1.8-2.4) Total Bilirubin 0.3 MG/DL (0.2-1.0) Aspartate Amino Transf (AST/SGOT) 31 U/L (15-37) Alanine Aminotransferase (ALT/SGPT) 26 U/L (12-78) Alkaline Phosphatase 90 U/L (46-116) Troponin I 0.017 ng/mL (0.000-0.056) Pro-B-Type Natriuretic Peptide 1163 pg/mL (0-125) H Total Protein 7.7 G/DL (6.4-8.2) Albumin 2.6 G/DL (3.4-5.0) L Globulin 5.1 g/dL Albumin/Globulin Ratio 0.5 (1.0-2.7) L Microbiology Date/Time Source Procedure Growth Status 05/08/18 13:45 Blood Blood Culture - Preliminary NO GROWTH AFTER 24 HOURS Resulted 05/08/18 13:35 Blood Blood Culture - Preliminary NO GROWTH AFTER 24 HOURS Resulted 05/09/18 06:00 Indwelling Cath Urine Culture - Preliminary Resulted Intake and Output 05/09/18 05/10/18 19:00 07:00 Intake Total 820 ml 670.000 ml Balance 820 ml 670.000 ml Intake Oral 120 ml IV Total 550.000 ml Other 820 ml # Voids 3 2 Assessment/Plan Problem List: (1) Cellulitis of right leg Assessment & Plan: see ID note. continue vanco and cefepime. Await cultures (2) Pain in right leg (3) Leukocytosis (4) HTN (hypertension) Assessment & Plan: Continue amlodipine (5) Hypothyroidism Assessment & Plan: continue levoxyl Status: not improved Chicho Ring MD May 10, 2018 19:59
[2018-05-10 20:00] VITALS: BP 139/81
[2018-05-10] MEDS: Vancomycin 750mg/NS 250ml IVPB SCH (20:24)
--- NOTE | 2018-05-10 20:30 | Consultation ---
DATE OF CONSULTATION: 05/10/2018 INFECTIOUS DISEASE CONSULTATION CONSULTING PHYSICIAN: Adolfo Richards M.D. REFERRING PHYSICIAN: 1. Yolanda Lazcano M.D. 2. Chicho Ring M.D. REASON FOR CONSULTATION: Evaluation of the patient for sepsis, leukocytosis, and right lower extremity cellulitis. HISTORY OF PRESENT ILLNESS: The patient is an 82-year-old male with multiple medical problems, poor historian, who was admitted to this medical center for right lower extremity erythema suggestive of cellulitis. The patient has been started on IV antibiotics. Infectious Diseases consultation has been requested for further evaluation of the patient. The patient is not able to provide much information and information gathered through the chart and speaking to staff. PAST MEDICAL HISTORY: 1. Mental retardation. 2. Aphasia. 3. CHF. 4. Hypertension. 5. Obesity. 6. History of multiple urinary tract infection in the past. 7. History of recurrent right lower extremity cellulitis. MEDICATIONS: 1. Vancomycin. 2. Cefepime. ALLERGIES: No known drug allergies. SOCIAL HISTORY: The patient lives in custodial. FAMILY HISTORY: Unavailable. REVIEW OF SYSTEMS: Unobtainable. PHYSICAL EXAMINATION: VITAL SIGNS: Temperature 98.2, pulse 86, respiratory rate 18, and blood pressure 130/74. HEENT: No pale conjunctivae. No icterus. NECK: No lymphadenopathy. CHEST: Clear. HEART: S1 and S2. ABDOMEN: Soft. EXTREMITIES: Bilateral lower extremity cellulitis/erythema. NEUROLOGIC: Awake, nonverbal. LABORATORY AND DIAGNOSTIC DATA: White blood cell count at the time of admission 25, , hemoglobin 11, platelets 220. UA unremarkable. BUN 20 and creatinine 1.1. ALT, AST, and alkaline phosphatase unremarkable. Urine culture is pending. Blood culture is pending. Chest x-ray shows congestive heart failure findings. Doppler of lower extremity showed DVT. ASSESSMENT: The patient is a 82-year-old male with: 1. Right lower extremity cellulitis. 2. Leukocytosis, improving. 3. Probable sepsis. 4. Probable dehydration/prerenal failure. PLAN: 1. We will continue the patient on IV vancomycin day #2, discontinue cefepime day #2. 2. Monitor CBC. 3. Monitor BMP. 4. Monitor cultures (urine and blood). 5. Monitor the patient's renal function, CBC and BMP. 6. Monitor for improvement of the patient's right lower extremity cellulitis. Thank you, Dr. Lazcano and Dr. Ring, for allowing me to participate in the care of this patient. I will follow the patient with you during this hospitalization. Adolfo Richards M.D. DR: Charis JOB#: [id number] CC:
[2018-05-11] VITALS: BP 150/77
[2018-05-11 04:00] VITALS: BP 136/69
[2018-05-11] MEDS: Sodium Chloride 500ML 550 ML IV SCH ×2 (06:14→18:15)
--- NOTE | 2018-05-11 07:12 | Pulmonology Progress Note ---
Assessment/Plan Assessment/Plan ASSESSMENT Sepsis Cellulitis RLE COPD developmental delay hypothyroidism CHF PLAN OF CARE MS floor abx, ID follows, fup with cx Blood cx prel negative, leuk resolved O2 HHN prn fup with CXR initial CXR with CHF, pro BNP elevated, edema BLE, no resp distress Cardio eval pending ( per PMD note) get ECHO BP management with CCB Continue ASA Check TSH, for now continue current dose of levothyroxine DVT prophylaxis PT/OT Pain management Skin care Bowel regimen Supportive care case discussed and evaluated by supervising physician Subjective Allergies: Coded Allergies: No Known Allergies (Unverified , 06/15/12) Subjective leukocytosis resolved, afebrile Objective Last 24 Hour Vital Signs Date Time Temp Pulse Resp B/P (MAP) Pulse Ox O2 Delivery O2 Flow Rate FiO2 05/11/18 04:00 97.2 82 20 136/69 (91) 99 97.2 05/11/18 00:00 97.9 85 18 150/77 (101) 97 97.9 05/10/18 21:00 Room Air 05/10/18 20:31 87 20 Room Air 05/10/18 20:00 98.5 88 18 139/81 (100) 99 98.5 05/10/18 16:00 97.9 87 20 149/78 (101) 98 97.9 05/10/18 12:00 97.5 78 20 130/74 (92) 100 97.5 05/10/18 09:10 83 20 Room Air 05/10/18 09:00 Room Air 05/10/18 08:10 88 137/71 05/10/18 08:00 97.5 88 19 137/71 (93) 100 97.5 Intake and Output 05/10/18 05/11/18 19:00 07:00 Intake Total 50 ml 700.000 ml Balance 50 ml 700.000 ml IV Total 50 ml 700.000 ml # Voids 2 2 General Appearance: no acute distress HEENT: normocephalic, atraumatic, anicteric Respiratory/Chest: lungs clear, no respiratory distress Cardiovascular: normal rate Abdomen: normal bowel sounds, soft, non tender Extremities: other - + 1 edema, erythema, warmth BLE Neurologic/Psychiatric: abnormal gait, alert, responsive Musculoskeletal: atrophy - BLE Microbiology Date/Time Source Procedure Growth Status 05/08/18 13:45 Blood Blood Culture - Preliminary NO GROWTH AFTER 48 HOURS Resulted 05/08/18 13:35 Blood Blood Culture - Preliminary NO GROWTH AFTER 48 HOURS Resulted 05/08/18 20:50 Nasal Nares 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 Complete 05/09/18 06:00 Indwelling Cath Urine Culture - Preliminary Strep Species, Gamma-Hemolytic Resulted Current Medications Medications (Trade) Dose Ordered Sig/Brian Route PRN Reason Start Time Stop Time Status Last Admin Dose Admin Acetaminophen (Tylenol) 650 mg Q4H PRN ORAL fever 05/08/18 15:30 06/07/18 15:29 05/08/18 22:42 Albuterol/ Ipratropium (Albuterol/ Ipratropium) 3 ml Q4H PRN HHN Shortness of Breath 05/08/18 15:30 05/13/18 15:29 Amlodipine Besylate (Norvasc) 2.5 mg DAILY ORAL 05/09/18 09:00 06/08/18 08:59 05/10/18 08:10 Aspirin (ASA) 81 mg DAILY ORAL 05/09/18 09:00 06/08/18 08:59 05/10/18 08:05 Heparin Sodium (Porcine) (Heparin 5000 units/ml) 5,000 units EVERY 12 HOURS SUBQ 05/08/18 21:00 06/07/18 20:59 05/10/18 20:26 Levothyroxine Sodium (Synthroid) 75 mcg DAILY@0630 ORAL 05/09/18 06:30 06/08/18 06:29 05/11/18 06:14 Lorazepam (Ativan) 1 mg Q6H PRN ORAL For Anxiety 05/09/18 13:15 05/16/18 13:14 Morphine Sulfate (Morphine Sulfate) 2 mg Q4H PRN IVP Moderate Pain (Pain Scale 4-6) 05/08/18 15:30 05/15/18 15:29 Nitroglycerin (Ntg) 0.4 mg Q5M PRN SL Prn Chest Pain 05/08/18 15:30 06/07/18 15:29 Ondansetron HCl (Zofran) 4 mg Q6H PRN IVP Nausea & Vomiting 05/08/18 15:30 06/07/18 15:29 Polyethylene Glycol (Miralax) 17 gm DAILYPRN PRN ORAL Constipation 05/08/18 15:30 06/07/18 15:29 Potassium Chloride (K-Dur) 20 meq TWICE A DAY ORAL 05/09/18 09:00 06/08/18 08:59 05/10/18 17:37 Sodium Chloride 550 ml @ 50 mls/hr Q11H IV 05/09/18 09:30 06/08/18 09:29 05/11/18 06:14 Temazepam (Restoril) 15 mg HSPRN PRN ORAL Insomnia 05/08/18 15:30 05/15/18 15:29 Vancomycin HCl (Vanco rx to dose) 1 ea DAILY PRN MISC PER RX PROTOCOL 05/10/18 11:30 06/09/18 11:29 Vancomycin/Sodium Chloride 250 ml @ 166.667 mls/hr Q24H IVPB 05/08/18 20:00 05/13/18 19:59 05/10/18 20:24 Stephanie Pennington NP May 11, 2018 07:12
--- NOTE | 2018-05-11 07:28 | Infectious Diseases Prog Note ---
Assessment/Plan Assessment/Plan The patient is a 82-year-old male with: Right lower extremity cellulitis. Leukocytosis, improving. Probable sepsis. Probable dehydration/prerenal failure. PLAN: Continue the patient on IV vancomycin d#2/7 05/10 SP cefepime d#2. Monitor CBC. Monitor BMP. Monitor cultures (urine and blood). Monitor the patient's renal function Monitor for improvement of the patient's right lower extremity cellulitis. Thank you, Dr. Lazcano and Dr. Ring, for allowing me to participate in the care of this patient. I will follow the patient with you during this hospitalization. Subjective Allergies: Coded Allergies: No Known Allergies (Unverified , 06/15/12) Subjective Afebrile No Acute events Objective Vital Signs Last 24 Hour Vital Signs Date Time Temp Pulse Resp B/P (MAP) Pulse Ox O2 Delivery O2 Flow Rate FiO2 05/11/18 04:00 97.2 82 20 136/69 (91) 99 97.2 05/11/18 00:00 97.9 85 18 150/77 (101) 97 97.9 05/10/18 21:00 Room Air 05/10/18 20:31 87 20 Room Air 05/10/18 20:00 98.5 88 18 139/81 (100) 99 98.5 05/10/18 16:00 97.9 87 20 149/78 (101) 98 97.9 05/10/18 12:00 97.5 78 20 130/74 (92) 100 97.5 05/10/18 09:10 83 20 Room Air 05/10/18 09:00 Room Air 05/10/18 08:10 88 137/71 05/10/18 08:00 97.5 88 19 137/71 (93) 100 97.5 Height (Feet): 5 Height (Inches): 4.00 Weight (Pounds): 160 Objective HEENT: NCAT, No icterus. CHEST: CTAB HEART: RR, S1 and S2. ABDOMEN: Soft. ND EXTREMITIES: Bilateral lower extremity cellulitis/erythema. NEUROLOGIC: Awake, nonverbal. Microbiology Date/Time Source Procedure Growth Status 05/08/18 13:45 Blood Blood Culture - Preliminary NO GROWTH AFTER 48 HOURS Resulted 05/08/18 13:35 Blood Blood Culture - Preliminary NO GROWTH AFTER 48 HOURS Resulted 05/08/18 20:50 Nasal Nares 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 Complete 05/09/18 06:00 Indwelling Cath Urine Culture - Preliminary Strep Species, Gamma-Hemolytic Resulted Current Medications Medications (Trade) Dose Ordered Sig/Brian Route PRN Reason Start Time Stop Time Status Last Admin Dose Admin Acetaminophen (Tylenol) 650 mg Q4H PRN ORAL fever 05/08/18 15:30 06/07/18 15:29 05/08/18 22:42 Albuterol/ Ipratropium (Albuterol/ Ipratropium) 3 ml Q4H PRN HHN Shortness of Breath 05/08/18 15:30 05/13/18 15:29 Amlodipine Besylate (Norvasc) 2.5 mg DAILY ORAL 05/09/18 09:00 06/08/18 08:59 05/10/18 08:10 Aspirin (ASA) 81 mg DAILY ORAL 05/09/18 09:00 06/08/18 08:59 05/10/18 08:05 Heparin Sodium (Porcine) (Heparin 5000 units/ml) 5,000 units EVERY 12 HOURS SUBQ 05/08/18 21:00 06/07/18 20:59 05/10/18 20:26 Levothyroxine Sodium (Synthroid) 75 mcg DAILY@0630 ORAL 05/09/18 06:30 06/08/18 06:29 05/11/18 06:14 Lorazepam (Ativan) 1 mg Q6H PRN ORAL For Anxiety 05/09/18 13:15 05/16/18 13:14 Morphine Sulfate (Morphine Sulfate) 2 mg Q4H PRN IVP Moderate Pain (Pain Scale 4-6) 05/08/18 15:30 05/15/18 15:29 Nitroglycerin (Ntg) 0.4 mg Q5M PRN SL Prn Chest Pain 05/08/18 15:30 06/07/18 15:29 Ondansetron HCl (Zofran) 4 mg Q6H PRN IVP Nausea & Vomiting 05/08/18 15:30 06/07/18 15:29 Polyethylene Glycol (Miralax) 17 gm DAILYPRN PRN ORAL Constipation 05/08/18 15:30 06/07/18 15:29 Potassium Chloride (K-Dur) 20 meq TWICE A DAY ORAL 05/09/18 09:00 06/08/18 08:59 05/10/18 17:37 Sodium Chloride 550 ml @ 50 mls/hr Q11H IV 05/09/18 09:30 06/08/18 09:29 05/11/18 06:14 Temazepam (Restoril) 15 mg HSPRN PRN ORAL Insomnia 05/08/18 15:30 05/15/18 15:29 Vancomycin HCl (Vanco rx to dose) 1 ea DAILY PRN MISC PER RX PROTOCOL 05/10/18 11:30 06/09/18 11:29 Vancomycin/Sodium Chloride 250 ml @ 166.667 mls/hr Q24H IVPB 05/08/18 20:00 05/13/18 19:59 05/10/18 20:24 Paulo Herrera MD May 11, 2018 07:28
[2018-05-11 07:53] LABS: BASOPHILS % (AUTO) 0.8 % (0.0-2.0); EOSINOPHILS % (AUTO) 6.4 % (0.0-3.0); HEMATOCRIT 33.9 % (42.0-52.0); HEMOGLOBIN 10.7 G/DL (14.2-18.0); LYMPHOCYTES % (AUTO) 18.7 % (20.0-45.0); MEAN CORPUSCULAR VOLUME 78 FL (80-99); MONOCYTES % (AUTO) 12.5 % (1.0-10.0); NEUTROPHILS % (AUTO) 61.6 % (45.0-75.0); PLATELET COUNT 215 K/UL (150-450); RED BLOOD COUNT 4.35 M/UL (4.70-6.10); RED CELL DISTRIBUTION WIDTH 14.9 % (11.6-14.8); WHITE BLOOD COUNT 7.1 K/UL (4.8-10.8)
[2018-05-11 08:00] VITALS: BP 136/67
[2018-05-11 08:28] LABS: ALANINE AMINOTRANSFERASE 27 U/L (12-78); ALBUMIN 2.4 G/DL (3.4-5.0); ALBUMIN/GLOBULIN RATIO 0.5 (1.0-2.7); ALKALINE PHOSPHATASE 80 U/L (46-116); ANION GAP 8 mmol/L (5-15); ASPARTATE AMINO TRANSFERASE 38 U/L (15-37); BILIRUBIN,TOTAL 0.2 MG/DL (0.2-1.0); BLOOD UREA NITROGEN 18 mg/dL (7-18); CALCIUM 8.5 MG/DL (8.5-10.1); CARBON DIOXIDE 25 MMOL/L (21-32); CHLORIDE 109 MMOL/L (98-107); PHOSPHORUS 2.2 MG/DL (2.5-4.9); POTASSIUM 4.2 MMOL/L (3.5-5.1); SODIUM 142 MMOL/L (136-145)
[2018-05-11] MEDS: Aspirin Baby 81mg ORAL SCH (08:49)
[2018-05-11] MEDS: Heparin 5000 units/ml inj SUBQ SCH ×2 (08:50→22:21)
[2018-05-11 12:00] VITALS: BP 145/86
[2018-05-11 16:00] VITALS: BP 117/69
--- NOTE | 2018-05-11 19:06 | Internal Med Progress Note ---
Subjective Date of Service: May 11, 2018 Physician Name Chicho Ring Attending Physician Librado Faria MD Current Medications Medications (Trade) Dose Ordered Sig/Brian Route PRN Reason Start Time Stop Time Status Last Admin Dose Admin Acetaminophen (Tylenol) 650 mg Q4H PRN ORAL fever 05/08/18 15:30 06/07/18 15:29 05/08/18 22:42 Albuterol/ Ipratropium (Albuterol/ Ipratropium) 3 ml Q4H PRN HHN Shortness of Breath 05/08/18 15:30 05/13/18 15:29 Amlodipine Besylate (Norvasc) 2.5 mg DAILY ORAL 05/09/18 09:00 06/08/18 08:59 05/11/18 08:49 Aspirin (ASA) 81 mg DAILY ORAL 05/09/18 09:00 06/08/18 08:59 05/11/18 08:49 Heparin Sodium (Porcine) (Heparin 5000 units/ml) 5,000 units EVERY 12 HOURS SUBQ 05/08/18 21:00 06/07/18 20:59 05/11/18 08:50 Levothyroxine Sodium (Synthroid) 75 mcg DAILY@0630 ORAL 05/09/18 06:30 06/08/18 06:29 05/11/18 06:14 Lorazepam (Ativan) 1 mg Q6H PRN ORAL For Anxiety 05/09/18 13:15 05/16/18 13:14 Morphine Sulfate (Morphine Sulfate) 2 mg Q4H PRN IVP Moderate Pain (Pain Scale 4-6) 05/08/18 15:30 05/15/18 15:29 Nitroglycerin (Ntg) 0.4 mg Q5M PRN SL Prn Chest Pain 05/08/18 15:30 06/07/18 15:29 Ondansetron HCl (Zofran) 4 mg Q6H PRN IVP Nausea & Vomiting 05/08/18 15:30 06/07/18 15:29 Polyethylene Glycol (Miralax) 17 gm DAILYPRN PRN ORAL Constipation 05/08/18 15:30 06/07/18 15:29 Potassium Chloride (K-Dur) 20 meq TWICE A DAY ORAL 05/09/18 09:00 06/08/18 08:59 05/11/18 18:15 Sodium Chloride 550 ml @ 50 mls/hr Q11H IV 05/09/18 09:30 06/08/18 09:29 05/11/18 18:15 Temazepam (Restoril) 15 mg HSPRN PRN ORAL Insomnia 05/08/18 15:30 05/15/18 15:29 Vancomycin HCl (Vanco rx to dose) 1 ea DAILY PRN MISC PER RX PROTOCOL 05/10/18 11:30 06/09/18 11:29 Vancomycin/Sodium Chloride 250 ml @ 166.667 mls/hr Q24H IVPB 05/08/18 20:00 05/13/18 19:59 05/10/18 20:24 Allergies: Coded Allergies: No Known Allergies (Unverified , 06/15/12) ROS Limited/Unobtainable: Yes Subjective 82 YO M admitted with right leg pain. Now cellulitis right leg. Cover for Int Jaswinder-Dr Faria Objective Last Vital Signs Date Time Temp Pulse Resp B/P (MAP) Pulse Ox O2 Delivery O2 Flow Rate FiO2 05/11/18 16:00 98.0 85 20 117/69 (85) 97 98.0 05/11/18 08:22 Room Air Laboratory Tests Test 05/11/18 06:30 White Blood Count 7.1 K/UL (4.8-10.8) Red Blood Count 4.35 M/UL (4.70-6.10) L Hemoglobin 10.7 G/DL (14.2-18.0) L Hematocrit 33.9 % (42.0-52.0) L Mean Corpuscular Volume 78 FL (80-99) L Mean Corpuscular Hemoglobin 24.6 PG (27.0-31.0) L Mean Corpuscular Hemoglobin Concent 31.6 G/DL (32.0-36.0) L Red Cell Distribution Width 14.9 % (11.6-14.8) H Platelet Count 215 K/UL (150-450) Mean Platelet Volume 7.8 FL (6.5-10.1) Neutrophils (%) (Auto) 61.6 % (45.0-75.0) Lymphocytes (%) (Auto) 18.7 % (20.0-45.0) L Monocytes (%) (Auto) 12.5 % (1.0-10.0) H Eosinophils (%) (Auto) 6.4 % (0.0-3.0) H Basophils (%) (Auto) 0.8 % (0.0-2.0) Sodium Level 142 MMOL/L (136-145) Potassium Level 4.2 MMOL/L (3.5-5.1) Chloride Level 109 MMOL/L (98-107) H Carbon Dioxide Level 25 MMOL/L (21-32) Anion Gap 8 mmol/L (5-15) Blood Urea Nitrogen 18 mg/dL (7-18) Creatinine 1.0 MG/DL (0.55-1.30) Estimat Glomerular Filtration Rate mL/min (>60) Glucose Level 84 MG/DL (74-106) Calcium Level 8.5 MG/DL (8.5-10.1) Phosphorus Level 2.2 MG/DL (2.5-4.9) L Magnesium Level 2.3 MG/DL (1.8-2.4) Total Bilirubin 0.2 MG/DL (0.2-1.0) Aspartate Amino Transf (AST/SGOT) 38 U/L (15-37) H Alanine Aminotransferase (ALT/SGPT) 27 U/L (12-78) Alkaline Phosphatase 80 U/L (46-116) Total Protein 7.2 G/DL (6.4-8.2) Albumin 2.4 G/DL (3.4-5.0) L Globulin 4.8 g/dL Albumin/Globulin Ratio 0.5 (1.0-2.7) L Microbiology Date/Time Source Procedure Growth Status 05/08/18 20:50 Nasal Nares 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 Complete 05/09/18 06:00 Indwelling Cath Urine Culture - Preliminary Strep Species, Gamma-Hemolytic Resulted 05/08/18 20:50 Rectum VRE Culture - Final NO VANCOMYCIN RESISTANT ENTEROCOCCUS ... Complete 05/08/18 20:50 Rectum - Final NO CARBAPENEM-RESISTANT ENTEROBACTERI... Complete Intake and Output 05/10/18 05/11/18 19:00 07:00 Intake Total 50 ml 700.000 ml Balance 50 ml 700.000 ml IV Total 50 ml 700.000 ml # Voids 2 2 Objective General Appearance: WD/WN, no apparent distress, alert EENT: PERRL/EOMI, normal ENT inspection Neck: non-tender, normal alignment, supple, normal inspection Cardiovascular: normal peripheral pulses, normal rate, regular rhythm, no gallop/murmur, no JVD Respiratory/Chest: chest wall non-tender, lungs clear, normal breath sounds, no respiratory distress, no accessory muscle use Abdomen: normal bowel sounds, non tender, soft, no organomegaly, no mass Extremities: normal range of motion, non-tender Edema: trace edema Neurologic: brush clearer surveying II-XII grossly normal, no motor/sensory deficits Skin: normal pigmentation, warm/dry, other - erythema right leg Assessment/Plan Problem List: (1) Cellulitis of right leg Assessment & Plan: see ID note. continue vanco and cefepime. Await cultures (2) Pain in right leg (3) Leukocytosis Assessment & Plan: Resolved (4) HTN (hypertension) Assessment & Plan: Continue amlodipine (5) Hypothyroidism Assessment & Plan: continue levoxyl Status: not improved Chicho Ring MD May 11, 2018 19:06
[2018-05-11 20:00] VITALS: BP 151/78
--- NOTE | 2018-05-11 23:01 | General Progress Note ---
Assessment/Plan Status: stable Assessment/Plan DD Encephalopathy due to [facility] [place] [facility]eta h[facility] Subjective Date patient seen: May 10, 2018 Neurologic/Psychiatric: Reports: anxiety, depressed, emotional problems Allergies: Coded Allergies: No Known Allergies (Unverified , 06/15/12) Objective Last 24 Hour Vital Signs Date Time Temp Pulse Resp B/P (MAP) Pulse Ox O2 Delivery O2 Flow Rate FiO2 05/11/18 20:17 81 20 Room Air 05/11/18 16:00 98.0 85 20 117/69 (85) 97 98.0 05/11/18 12:00 98.7 82 19 145/86 (105) 99 98.7 05/11/18 08:49 84 136/67 05/11/18 08:22 84 20 Room Air 05/11/18 08:00 98.4 85 18 136/67 (90) 98 98.4 05/11/18 08:00 Room Air 05/11/18 04:00 97.2 82 20 136/69 (91) 99 97.2 05/11/18 00:00 97.9 85 18 150/77 (101) 97 97.9 Intake and Output 05/10/18 05/11/18 19:00 07:00 Intake Total 50 ml 700.000 ml Balance 50 ml 700.000 ml IV Total 50 ml 700.000 ml # Voids 2 2 Laboratory Tests 05/11/18 06:30: White Blood Count 7.1, Red Blood Count 4.35L, Hemoglobin 10.7L, Hematocrit 33.9L , Mean Corpuscular Volume 78L, Mean Corpuscular Hemoglobin 24.6L, Mean Corpuscular Hemoglobin Concent 31.6L, Red Cell Distribution Width 14.9H, Platelet Count 215, Mean Platelet Volume 7.8, Neutrophils (%) (Auto) 61.6, Lymphocytes (%) (Auto) 18.7L, Monocytes (%) (Auto) 12.5H, Eosinophils (%) (Auto ) 6.4H, Basophils (%) (Auto) 0.8, Sodium Level 142, Potassium Level 4.2, Chloride Level 109H, Carbon Dioxide Level 25, Anion Gap 8, Blood Urea Nitrogen 18, Creatinine 1.0, Estimat Glomerular Filtration Rate , Glucose Level 84, Calcium Level 8.5, Phosphorus Level 2.2L, Magnesium Level 2.3, Total Bilirubin 0.2, Aspartate Amino Transf (AST/SGOT) 38H, Alanine Aminotransferase (ALT/SGPT) 27, Alkaline Phosphatase 80, Total Protein 7.2, Albumin 2.4L, Globulin 4.8, Albumin/Globulin Ratio 0.5L 05/11/18 19:05: Vancomycin Level Trough 8.8 Height (Feet): 5 Height (Inches): 4.00 Weight (Pounds): 160 General Appearance: no apparent distress, alert Loulou Gutierrez MD May 11, 2018 23:01
--- NOTE | 2018-05-11 23:02 | General Progress Note ---
Assessment/Plan Status: stable, progressing Assessment/Plan DD [place] [facility] [place] Subjective Date patient seen: May 11, 2018 Neurologic/Psychiatric: Reports: anxiety, depressed, emotional problems Allergies: Coded Allergies: No Known Allergies (Unverified , 06/15/12) Objective Last 24 Hour Vital Signs Date Time Temp Pulse Resp B/P (MAP) Pulse Ox O2 Delivery O2 Flow Rate FiO2 05/11/18 20:17 81 20 Room Air 05/11/18 16:00 98.0 85 20 117/69 (85) 97 98.0 05/11/18 12:00 98.7 82 19 145/86 (105) 99 98.7 05/11/18 08:49 84 136/67 05/11/18 08:22 84 20 Room Air 05/11/18 08:00 98.4 85 18 136/67 (90) 98 98.4 05/11/18 08:00 Room Air 05/11/18 04:00 97.2 82 20 136/69 (91) 99 97.2 05/11/18 00:00 97.9 85 18 150/77 (101) 97 97.9 Intake and Output 05/10/18 05/11/18 19:00 07:00 Intake Total 50 ml 700.000 ml Balance 50 ml 700.000 ml IV Total 50 ml 700.000 ml # Voids 2 2 Laboratory Tests 05/11/18 06:30: White Blood Count 7.1, Red Blood Count 4.35L, Hemoglobin 10.7L, Hematocrit 33.9L , Mean Corpuscular Volume 78L, Mean Corpuscular Hemoglobin 24.6L, Mean Corpuscular Hemoglobin Concent 31.6L, Red Cell Distribution Width 14.9H, Platelet Count 215, Mean Platelet Volume 7.8, Neutrophils (%) (Auto) 61.6, Lymphocytes (%) (Auto) 18.7L, Monocytes (%) (Auto) 12.5H, Eosinophils (%) (Auto ) 6.4H, Basophils (%) (Auto) 0.8, Sodium Level 142, Potassium Level 4.2, Chloride Level 109H, Carbon Dioxide Level 25, Anion Gap 8, Blood Urea Nitrogen 18, Creatinine 1.0, Estimat Glomerular Filtration Rate , Glucose Level 84, Calcium Level 8.5, Phosphorus Level 2.2L, Magnesium Level 2.3, Total Bilirubin 0.2, Aspartate Amino Transf (AST/SGOT) 38H, Alanine Aminotransferase (ALT/SGPT) 27, Alkaline Phosphatase 80, Total Protein 7.2, Albumin 2.4L, Globulin 4.8, Albumin/Globulin Ratio 0.5L 05/11/18 19:05: Vancomycin Level Trough 8.8 Height (Feet): 5 Height (Inches): 4.00 Weight (Pounds): 160 General Appearance: no apparent distress, alert, confused Loulou Gutierrez MD May 11, 2018 23:01
[2018-05-12] VITALS: BP 130/63
[2018-05-12] MEDS: Vancomycin 1gm/D5W 275ml IVPB SCH ×4 (01:37→20:29)
[2018-05-12] MEDS: Sodium Chloride 500ML 550 ML IV SCH ×2 (03:40→14:30)
[2018-05-12 04:00] VITALS: BP 108/56
[2018-05-12 08:00] VITALS: BP 143/76
[2018-05-12] MEDS: Aspirin Baby 81mg ORAL SCH (08:13)
[2018-05-12] MEDS: Heparin 5000 units/ml inj SUBQ SCH ×2 (08:15→20:35)
[2018-05-12 08:39] LABS: HEMATOCRIT 32.2 % (42.0-52.0); HEMOGLOBIN 10.3 G/DL (14.2-18.0); LYMPHOCYTES % (AUTO) 21.1 % (20.0-45.0); MEAN CORPUSCULAR VOLUME 78 FL (80-99); MONOCYTES % (AUTO) 9.6 % (1.0-10.0); NEUTROPHILS % (AUTO) 59.3 % (45.0-75.0); PLATELET COUNT 210 K/UL (150-450); RED BLOOD COUNT 4.14 M/UL (4.70-6.10); RED CELL DISTRIBUTION WIDTH 14.7 % (11.6-14.8)
[2018-05-12] MEDS ORDERED: NS 500ML ONE (08:48)
[2018-05-12 09:02] LABS: ANION GAP 6 mmol/L (5-15); BLOOD UREA NITROGEN 15 mg/dL (7-18); CALCIUM 8.8 MG/DL (8.5-10.1); CARBON DIOXIDE 25 MMOL/L (21-32); CHLORIDE 108 MMOL/L (98-107); POTASSIUM 4.1 MMOL/L (3.5-5.1); SODIUM 139 MMOL/L (136-145)
--- NOTE | 2018-05-12 09:39 | Pulmonology Progress Note ---
Assessment/Plan Assessment/Plan ASSESSMENT Sepsis Cellulitis RLE COPD developmental delay hypothyroidism CHF encephalopathy 2 to [facility] PLAN OF CARE MS floor abx, ID follows, Blood cx prel negative, no leuk O2 HHN prn fup with CXR initial CXR with CHF, pro BNP elevated, edema BLE, no resp distress ECHO with pEF 60, mild to moderate AI no clinical decompensation BP management with CCB Continue ASA TSH WNL, continue current dose of levothyroxine DVT prophylaxis PT/OT Pain management Skin care Bowel regimen Psych follows, case discussed and evaluated by supervising physician Subjective Allergies: Coded Allergies: No Known Allergies (Unverified , 06/15/12) Subjective leukocytosis resolved, afebrile no signs of resp distress Objective Last 24 Hour Vital Signs Date Time Temp Pulse Resp B/P (MAP) Pulse Ox O2 Delivery O2 Flow Rate FiO2 05/12/18 08:14 89 143/76 05/12/18 08:00 Room Air 05/12/18 08:00 97.6 89 17 143/76 (98) 99 97.6 05/12/18 04:00 97.2 71 20 108/56 (73) 100 97.2 05/12/18 00:00 97.9 86 19 130/63 (85) 99 97.9 05/11/18 21:00 Room Air 05/11/18 20:17 81 20 Room Air 05/11/18 20:00 98.2 86 20 151/78 (102) 97 98.2 05/11/18 16:00 98.0 85 20 117/69 (85) 97 98.0 05/11/18 12:00 98.7 82 19 145/86 (105) 99 98.7 Intake and Output 05/11/18 05/12/18 19:00 07:00 Intake Total 480 ml 667.416 ml Balance 480 ml 667.416 ml Intake Oral 480 ml IV Total 667.416 ml # Voids 4 2 # Bowel Movements 1 Objective General Appearance: no acute distress HEENT: normocephalic, atraumatic, anicteric Respiratory/Chest: lungs clear, no respiratory distress Cardiovascular: normal rate Abdomen: normal bowel sounds, soft, non tender Extremities: other - + 1 edema, erythema, warmth BLE Neurologic/Psychiatric: abnormal gait, alert, responsive Musculoskeletal: atrophy - BLE Laboratory Tests 05/11/18 19:05: Vancomycin Level Trough 8.8 05/12/18 08:05: White Blood Count 5.0, Red Blood Count 4.14L, Hemoglobin 10.3L, Hematocrit 32.2L , Mean Corpuscular Volume 78L, Mean Corpuscular Hemoglobin 24.9L, Mean Corpuscular Hemoglobin Concent 32.0, Red Cell Distribution Width 14.7, Platelet Count 210, Mean Platelet Volume 7.5, Neutrophils (%) (Auto) 59.3, Lymphocytes (% ) (Auto) 21.1, Monocytes (%) (Auto) 9.6, Eosinophils (%) (Auto) 9.0H, Basophils (%) (Auto) 1.0, Sodium Level 139, Potassium Level 4.1, Chloride Level 108H, Carbon Dioxide Level 25, Anion Gap 6, Blood Urea Nitrogen 15, Creatinine 1.0, Estimat Glomerular Filtration Rate , Glucose Level 85, Calcium Level 8.8, Thyroid Stimulating Hormone (TSH) 2.799 Current Medications Medications (Trade) Dose Ordered Sig/Brian Route PRN Reason Start Time Stop Time Status Last Admin Dose Admin Acetaminophen (Tylenol) 650 mg Q4H PRN ORAL fever 05/08/18 15:30 06/07/18 15:29 05/08/18 22:42 Albuterol/ Ipratropium (Albuterol/ Ipratropium) 3 ml Q4H PRN HHN Shortness of Breath 05/08/18 15:30 05/13/18 15:29 Amlodipine Besylate (Norvasc) 2.5 mg DAILY ORAL 05/09/18 09:00 06/08/18 08:59 05/12/18 08:14 Aspirin (ASA) 81 mg DAILY ORAL 05/09/18 09:00 06/08/18 08:59 05/12/18 08:13 Heparin Sodium (Porcine) (Heparin 5000 units/ml) 5,000 units EVERY 12 HOURS SUBQ 05/08/18 21:00 06/07/18 20:59 05/12/18 08:15 Levothyroxine Sodium (Synthroid) 75 mcg DAILY@0630 ORAL 05/09/18 06:30 06/08/18 06:29 05/12/18 06:03 Lorazepam (Ativan) 1 mg Q6H PRN ORAL For Anxiety 05/09/18 13:15 05/16/18 13:14 Morphine Sulfate (Morphine Sulfate) 2 mg Q4H PRN IVP Moderate Pain (Pain Scale 4-6) 05/08/18 15:30 05/15/18 15:29 Nitroglycerin (Ntg) 0.4 mg Q5M PRN SL Prn Chest Pain 05/08/18 15:30 06/07/18 15:29 Ondansetron HCl (Zofran) 4 mg Q6H PRN IVP Nausea & Vomiting 05/08/18 15:30 06/07/18 15:29 Polyethylene Glycol (Miralax) 17 gm DAILYPRN PRN ORAL Constipation 05/08/18 15:30 06/07/18 15:29 Potassium Chloride (K-Dur) 20 meq TWICE A DAY ORAL 05/09/18 09:00 06/08/18 08:59 05/12/18 08:14 Sodium Chloride 550 ml @ 50 mls/hr Q11H IV 05/09/18 09:30 06/08/18 09:29 05/12/18 03:40 Temazepam (Restoril) 15 mg HSPRN PRN ORAL Insomnia 05/08/18 15:30 05/15/18 15:29 Vancomycin HCl (Vanco rx to dose) 1 ea DAILY PRN MISC PER RX PROTOCOL 05/10/18 11:30 06/09/18 11:29 Vancomycin HCl 1 gm/Dextrose 275 ml @ 183.708 mls/hr Q24H IVPB 05/11/18 21:00 05/16/18 20:59 05/12/18 01:37 Stephanie Pennington NP May 12, 2018 09:39
[2018-05-12 12:00] VITALS: BP 155/90
[2018-05-12 16:00] VITALS: BP 126/79
--- NOTE | 2018-05-12 16:06 | Internal Med Progress Note ---
Subjective Date of Service: May 12, 2018 Physician Name Chicho Ring Attending Physician Librado Faria MD Current Medications Medications (Trade) Dose Ordered Sig/Brian Route PRN Reason Start Time Stop Time Status Last Admin Dose Admin Acetaminophen (Tylenol) 650 mg Q4H PRN ORAL fever 05/08/18 15:30 06/07/18 15:29 05/08/18 22:42 Albuterol/ Ipratropium (Albuterol/ Ipratropium) 3 ml Q4H PRN HHN Shortness of Breath 05/08/18 15:30 05/13/18 15:29 Amlodipine Besylate (Norvasc) 2.5 mg DAILY ORAL 05/09/18 09:00 06/08/18 08:59 05/12/18 08:14 Aspirin (ASA) 81 mg DAILY ORAL 05/09/18 09:00 06/08/18 08:59 05/12/18 08:13 Heparin Sodium (Porcine) (Heparin 5000 units/ml) 5,000 units EVERY 12 HOURS SUBQ 05/08/18 21:00 06/07/18 20:59 05/12/18 08:15 Levothyroxine Sodium (Synthroid) 75 mcg DAILY@0630 ORAL 05/09/18 06:30 06/08/18 06:29 05/12/18 06:03 Lorazepam (Ativan) 1 mg Q6H PRN ORAL For Anxiety 05/09/18 13:15 05/16/18 13:14 Morphine Sulfate (Morphine Sulfate) 2 mg Q4H PRN IVP Moderate Pain (Pain Scale 4-6) 05/08/18 15:30 05/15/18 15:29 Nitroglycerin (Ntg) 0.4 mg Q5M PRN SL Prn Chest Pain 05/08/18 15:30 06/07/18 15:29 Ondansetron HCl (Zofran) 4 mg Q6H PRN IVP Nausea & Vomiting 05/08/18 15:30 06/07/18 15:29 Polyethylene Glycol (Miralax) 17 gm DAILYPRN PRN ORAL Constipation 05/08/18 15:30 06/07/18 15:29 Potassium Chloride (K-Dur) 20 meq TWICE A DAY ORAL 05/09/18 09:00 06/08/18 08:59 05/12/18 08:14 Sodium Chloride 550 ml @ 50 mls/hr Q11H IV 05/09/18 09:30 06/08/18 09:29 05/12/18 14:30 Temazepam (Restoril) 15 mg HSPRN PRN ORAL Insomnia 05/08/18 15:30 05/15/18 15:29 Vancomycin HCl (Vanco rx to dose) 1 ea DAILY PRN MISC PER RX PROTOCOL 05/10/18 11:30 06/09/18 11:29 Vancomycin HCl 1 gm/Dextrose 275 ml @ 183.708 mls/hr Q24H IVPB 05/11/18 21:00 05/16/18 20:59 05/12/18 01:37 Allergies: Coded Allergies: No Known Allergies (Unverified , 06/15/12) ROS Limited/Unobtainable: Yes Subjective 82 YO M admitted with right leg pain. Now cellulitis right leg. Cover for Int Jaswinder-Dr Faria Objective Last Vital Signs Date Time Temp Pulse Resp B/P (MAP) Pulse Ox O2 Delivery O2 Flow Rate FiO2 05/12/18 12:00 97.1 78 18 155/90 (111) 100 97.1 05/12/18 08:00 Room Air Laboratory Tests Test 05/11/18 19:05 05/12/18 08:05 Vancomycin Level Trough 8.8 ug/mL (5.0-12.0) White Blood Count 5.0 K/UL (4.8-10.8) Red Blood Count 4.14 M/UL (4.70-6.10) L Hemoglobin 10.3 G/DL (14.2-18.0) L Hematocrit 32.2 % (42.0-52.0) L Mean Corpuscular Volume 78 FL (80-99) L Mean Corpuscular Hemoglobin 24.9 PG (27.0-31.0) L Mean Corpuscular Hemoglobin Concent 32.0 G/DL (32.0-36.0) Red Cell Distribution Width 14.7 % (11.6-14.8) Platelet Count 210 K/UL (150-450) Mean Platelet Volume 7.5 FL (6.5-10.1) Neutrophils (%) (Auto) 59.3 % (45.0-75.0) Lymphocytes (%) (Auto) 21.1 % (20.0-45.0) Monocytes (%) (Auto) 9.6 % (1.0-10.0) Eosinophils (%) (Auto) 9.0 % (0.0-3.0) H Basophils (%) (Auto) 1.0 % (0.0-2.0) Sodium Level 139 MMOL/L (136-145) Potassium Level 4.1 MMOL/L (3.5-5.1) Chloride Level 108 MMOL/L (98-107) H Carbon Dioxide Level 25 MMOL/L (21-32) Anion Gap 6 mmol/L (5-15) Blood Urea Nitrogen 15 mg/dL (7-18) Creatinine 1.0 MG/DL (0.55-1.30) Estimat Glomerular Filtration Rate mL/min (>60) Glucose Level 85 MG/DL (74-106) Calcium Level 8.8 MG/DL (8.5-10.1) Thyroid Stimulating Hormone (TSH) 2.799 uiU/mL (0.358-3.740) Intake and Output 05/11/18 05/12/18 19:00 07:00 Intake Total 480 ml 667.416 ml Balance 480 ml 667.416 ml Intake Oral 480 ml IV Total 667.416 ml # Voids 4 2 # Bowel Movements 1 Objective General Appearance: WD/WN, no apparent distress, alert EENT: PERRL/EOMI, normal ENT inspection Neck: non-tender, normal alignment, supple, normal inspection Cardiovascular: normal peripheral pulses, normal rate, regular rhythm, no gallop/murmur, no JVD Respiratory/Chest: chest wall non-tender, lungs clear, normal breath sounds, no respiratory distress, no accessory muscle use Abdomen: normal bowel sounds, non tender, soft, no organomegaly, no mass Extremities: normal range of motion, non-tender Edema: trace edema Neurologic: transfer driver II-XII grossly normal, no motor/sensory deficits Skin: normal pigmentation, warm/dry, other - erythema right leg Assessment/Plan Problem List: (1) Cellulitis of right leg Assessment & Plan: see ID note. continue vanco and cefepime. Await cultures (2) Pain in right leg (3) Leukocytosis Assessment & Plan: Resolved (4) HTN (hypertension) Assessment & Plan: Continue amlodipine (5) Hypothyroidism Assessment & Plan: continue levoxyl Status: stable Ring,Chicho MD May 12, 2018 16:06
[2018-05-12 20:00] VITALS: BP 163/81
[2018-05-13] VITALS: BP 128/65
[2018-05-13 04:00] VITALS: BP 145/75
--- NOTE | 2018-05-13 07:55 | Pulmonology Progress Note ---
Assessment/Plan Assessment/Plan ASSESSMENT Sepsis Cellulitis RLE COPD developmental delay hypothyroidism CHF PLAN OF CARE MS floor abx, ID follows, fup with cx Blood cx prel negative, leuk resolved O2 HHN prn fup with CXR initial CXR with CHF, pro BNP elevated, edema BLE, no resp distress Cardio eval pending ( per PMD note) get ECHO BP management with CCB Continue ASA TSH WNL, continue current dose of levothyroxine DVT prophylaxis PT/OT Pain management Skin care Bowel regimen Supportive care dc plan per primary case discussed and evaluated by supervising physician Subjective Allergies: Coded Allergies: No Known Allergies (Unverified , 06/15/12) Subjective leukocytosis resolved, afebrile no signs of resp distress Objective Last 24 Hour Vital Signs Date Time Temp Pulse Resp B/P (MAP) Pulse Ox O2 Delivery O2 Flow Rate FiO2 05/13/18 04:00 97.1 84 20 145/75 (98) 99 97.1 05/13/18 00:00 97.3 80 20 128/65 (86) 99 97.3 05/12/18 21:00 Room Air 05/12/18 20:00 97.3 84 20 163/81 (108) 100 97.3 05/12/18 19:06 83 18 Room Air 05/12/18 16:00 97.8 82 18 126/79 (95) 98 97.8 05/12/18 12:00 97.1 78 18 155/90 (111) 100 97.1 05/12/18 08:14 89 143/76 05/12/18 08:00 Room Air 05/12/18 08:00 97.6 89 17 143/76 (98) 99 97.6 Intake and Output 05/12/18 05/13/18 19:00 07:00 Intake Total 800 ml 595.000 ml Balance 800 ml 595.000 ml Intake Oral 800 ml 320 ml IV Total 275.000 ml # Voids 5 4 Objective General Appearance: no acute distress HEENT: normocephalic, atraumatic, anicteric Respiratory/Chest: lungs clear, no respiratory distress Cardiovascular: normal rate Abdomen: normal bowel sounds, soft, non tender Extremities: other - + 1 edema, erythema, warmth BLE Neurologic/Psychiatric: abnormal gait, alert, responsive Musculoskeletal: atrophy - BLE Laboratory Tests 05/12/18 08:05: White Blood Count 5.0, Red Blood Count 4.14L, Hemoglobin 10.3L, Hematocrit 32.2L , Mean Corpuscular Volume 78L, Mean Corpuscular Hemoglobin 24.9L, Mean Corpuscular Hemoglobin Concent 32.0, Red Cell Distribution Width 14.7, Platelet Count 210, Mean Platelet Volume 7.5, Neutrophils (%) (Auto) 59.3, Lymphocytes (% ) (Auto) 21.1, Monocytes (%) (Auto) 9.6, Eosinophils (%) (Auto) 9.0H, Basophils (%) (Auto) 1.0, Sodium Level 139, Potassium Level 4.1, Chloride Level 108H, Carbon Dioxide Level 25, Anion Gap 6, Blood Urea Nitrogen 15, Creatinine 1.0, Estimat Glomerular Filtration Rate , Glucose Level 85, Calcium Level 8.8, Thyroid Stimulating Hormone (TSH) 2.799 Current Medications Medications (Trade) Dose Ordered Sig/Brian Route PRN Reason Start Time Stop Time Status Last Admin Dose Admin Acetaminophen (Tylenol) 650 mg Q4H PRN ORAL fever 05/08/18 15:30 06/07/18 15:29 05/08/18 22:42 Albuterol/ Ipratropium (Albuterol/ Ipratropium) 3 ml Q4H PRN HHN Shortness of Breath 05/08/18 15:30 05/13/18 15:29 Amlodipine Besylate (Norvasc) 2.5 mg DAILY ORAL 05/09/18 09:00 06/08/18 08:59 05/12/18 08:14 Aspirin (ASA) 81 mg DAILY ORAL 05/09/18 09:00 06/08/18 08:59 05/12/18 08:13 Heparin Sodium (Porcine) (Heparin 5000 units/ml) 5,000 units EVERY 12 HOURS SUBQ 05/08/18 21:00 06/07/18 20:59 05/12/18 20:35 Levothyroxine Sodium (Synthroid) 75 mcg DAILY@0630 ORAL 05/09/18 06:30 06/08/18 06:29 05/13/18 05:40 Lorazepam (Ativan) 1 mg Q6H PRN ORAL For Anxiety 05/09/18 13:15 05/16/18 13:14 Morphine Sulfate (Morphine Sulfate) 2 mg Q4H PRN IVP Moderate Pain (Pain Scale 4-6) 05/08/18 15:30 05/15/18 15:29 Nitroglycerin (Ntg) 0.4 mg Q5M PRN SL Prn Chest Pain 05/08/18 15:30 06/07/18 15:29 Ondansetron HCl (Zofran) 4 mg Q6H PRN IVP Nausea & Vomiting 05/08/18 15:30 06/07/18 15:29 Polyethylene Glycol (Miralax) 17 gm DAILYPRN PRN ORAL Constipation 05/08/18 15:30 06/07/18 15:29 Potassium Chloride (K-Dur) 20 meq TWICE A DAY ORAL 05/09/18 09:00 06/08/18 08:59 05/12/18 17:30 Temazepam (Restoril) 15 mg HSPRN PRN ORAL Insomnia 05/08/18 15:30 05/15/18 15:29 Vancomycin HCl (Vanco rx to dose) 1 ea DAILY PRN MISC PER RX PROTOCOL 05/10/18 11:30 06/09/18 11:29 Vancomycin HCl 1 gm/Dextrose 275 ml @ 183.708 mls/hr Q24H IVPB 05/11/18 21:00 05/16/18 20:59 05/12/18 20:29 Stephanie Pennington NUCLEAR SCIENTIST May 13, 2018 07:55
[2018-05-13 08:00] VITALS: BP 153/83
[2018-05-13 08:43] LABS: BASOPHILS % (AUTO) 1.5 % (0.0-2.0); EOSINOPHILS % (AUTO) 8.9 % (0.0-3.0); HEMATOCRIT 40.3 % (42.0-52.0); HEMOGLOBIN 12.5 G/DL (14.2-18.0); LYMPHOCYTES % (AUTO) 20.7 % (20.0-45.0); MEAN CORPUSCULAR VOLUME 78 FL (80-99); MONOCYTES % (AUTO) 8.3 % (1.0-10.0); NEUTROPHILS % (AUTO) 60.6 % (45.0-75.0); PLATELET COUNT 134 K/UL (150-450); RED BLOOD COUNT 5.14 M/UL (4.70-6.10); RED CELL DISTRIBUTION WIDTH 15.1 % (11.6-14.8); WHITE BLOOD COUNT 5.8 K/UL (4.8-10.8)
[2018-05-13] MEDS: Aspirin Baby 81mg ORAL SCH (08:57)
[2018-05-13] MEDS: Heparin 5000 units/ml inj SUBQ SCH ×2 (08:57→20:57)
[2018-05-13 09:11] LABS: ANION GAP 6 mmol/L (5-15); BLOOD UREA NITROGEN 11 mg/dL (7-18); CALCIUM 9.5 MG/DL (8.5-10.1); CARBON DIOXIDE 25 MMOL/L (21-32); CHLORIDE 107 MMOL/L (98-107); CREATININE 0.9 MG/DL (0.55-1.30); POTASSIUM 4.6 MMOL/L (3.5-5.1); SODIUM 138 MMOL/L (136-145)
[2018-05-13 12:00] VITALS: BP 149/78
--- NOTE | 2018-05-13 12:20 | Infectious Diseases Prog Note ---
Assessment/Plan Assessment/Plan The patient is a 82-year-old male with: Right lower extremity cellulitis. -Bx NTD Leukocytosis, SP Probable sepsis, SP Probable dehydration/prerenal failure. Assymptomatic bacteriuria -u/a neg, ucx 10-20K E.faecalis (camara S) PLAN: Continue the patient on IV vancomycin d#4/7 05/10 SP cefepime d#2. Monitor CBC. Monitor BMP. Monitor cultures ( blood). Monitor the patient's renal function Monitor for improvement of the patient's right lower extremity cellulitis. Thank you, Dr. Lazcano and Dr. Ring, for allowing me to participate in the care of this patient. I will follow the patient with you during this hospitalization. Subjective Allergies: Coded Allergies: No Known Allergies (Unverified , 06/15/12) Subjective afebrile no leukocytosis Bcx NTD Objective Vital Signs Last 24 Hour Vital Signs Date Time Temp Pulse Resp B/P (MAP) Pulse Ox O2 Delivery O2 Flow Rate FiO2 05/13/18 09:00 Room Air 05/13/18 09:00 77 18 Room Air 21 05/13/18 08:57 90 153/83 05/13/18 08:00 97.2 90 18 153/83 (106) 99 97.2 05/13/18 04:00 97.1 84 20 145/75 (98) 99 97.1 05/13/18 00:00 97.3 80 20 128/65 (86) 99 97.3 05/12/18 21:00 Room Air 05/12/18 20:00 97.3 84 20 163/81 (108) 100 97.3 05/12/18 19:06 83 18 Room Air 05/12/18 16:00 97.8 82 18 126/79 (95) 98 97.8 Height (Feet): 5 Height (Inches): 4.00 Weight (Pounds): 160 Objective General Appearance: no acute distress HEENT: normocephalic, atraumatic, anicteric Respiratory/Chest: lungs clear, no respiratory distress Cardiovascular: normal rate Abdomen: normal bowel sounds, soft, non tender Extremities: other - + 1 edema, erythema, warmth BLE Neurologic/Psychiatric: abnormal gait, alert, responsive Musculoskeletal: atrophy - BLE Laboratory Tests Test 05/13/18 08:05 White Blood Count 5.8 K/UL (4.8-10.8) Red Blood Count 5.14 M/UL (4.70-6.10) Hemoglobin 12.5 G/DL (14.2-18.0) L Hematocrit 40.3 % (42.0-52.0) L Mean Corpuscular Volume 78 FL (80-99) L Mean Corpuscular Hemoglobin 24.4 PG (27.0-31.0) L Mean Corpuscular Hemoglobin Concent 31.1 G/DL (32.0-36.0) L Red Cell Distribution Width 15.1 % (11.6-14.8) H Platelet Count 134 K/UL (150-450) L Mean Platelet Volume 7.1 FL (6.5-10.1) Neutrophils (%) (Auto) 60.6 % (45.0-75.0) Lymphocytes (%) (Auto) 20.7 % (20.0-45.0) Monocytes (%) (Auto) 8.3 % (1.0-10.0) Eosinophils (%) (Auto) 8.9 % (0.0-3.0) H Basophils (%) (Auto) 1.5 % (0.0-2.0) Sodium Level 138 MMOL/L (136-145) Potassium Level 4.6 MMOL/L (3.5-5.1) Chloride Level 107 MMOL/L (98-107) Carbon Dioxide Level 25 MMOL/L (21-32) Anion Gap 6 mmol/L (5-15) Blood Urea Nitrogen 11 mg/dL (7-18) Creatinine 0.9 MG/DL (0.55-1.30) Estimat Glomerular Filtration Rate mL/min (>60) Glucose Level 120 MG/DL (74-106) H Calcium Level 9.5 MG/DL (8.5-10.1) Pro-B-Type Natriuretic Peptide 1227 pg/mL (0-125) H Current Medications Medications (Trade) Dose Ordered Sig/Brian Route PRN Reason Start Time Stop Time Status Last Admin Dose Admin Acetaminophen (Tylenol) 650 mg Q4H PRN ORAL fever 05/08/18 15:30 06/07/18 15:29 05/08/18 22:42 Albuterol/ Ipratropium (Albuterol/ Ipratropium) 3 ml Q4H PRN HHN Shortness of Breath 05/08/18 15:30 05/13/18 15:29 Amlodipine Besylate (Norvasc) 2.5 mg DAILY ORAL 05/09/18 09:00 06/08/18 08:59 05/13/18 08:57 Aspirin (ASA) 81 mg DAILY ORAL 05/09/18 09:00 06/08/18 08:59 05/13/18 08:57 Heparin Sodium (Porcine) (Heparin 5000 units/ml) 5,000 units EVERY 12 HOURS SUBQ 05/08/18 21:00 06/07/18 20:59 05/13/18 08:57 Levothyroxine Sodium (Synthroid) 75 mcg DAILY@0630 ORAL 05/09/18 06:30 06/08/18 06:29 05/13/18 05:40 Lorazepam (Ativan) 1 mg Q6H PRN ORAL For Anxiety 05/09/18 13:15 05/16/18 13:14 Morphine Sulfate (Morphine Sulfate) 2 mg Q4H PRN IVP Moderate Pain (Pain Scale 4-6) 05/08/18 15:30 05/15/18 15:29 Nitroglycerin (Ntg) 0.4 mg Q5M PRN SL Prn Chest Pain 05/08/18 15:30 06/07/18 15:29 Ondansetron HCl (Zofran) 4 mg Q6H PRN IVP Nausea & Vomiting 05/08/18 15:30 06/07/18 15:29 Polyethylene Glycol (Miralax) 17 gm DAILYPRN PRN ORAL Constipation 05/08/18 15:30 06/07/18 15:29 Potassium Chloride (K-Dur) 20 meq TWICE A DAY ORAL 05/09/18 09:00 06/08/18 08:59 05/13/18 08:57 Temazepam (Restoril) 15 mg HSPRN PRN ORAL Insomnia 05/08/18 15:30 05/15/18 15:29 Vancomycin HCl (Vanco rx to dose) 1 ea DAILY PRN MISC PER RX PROTOCOL 05/10/18 11:30 06/09/18 11:29 Vancomycin HCl 1 gm/Dextrose 275 ml @ 183.708 mls/hr Q24H IVPB 05/11/18 21:00 05/16/18 20:59 05/12/18 20:29 Joycelyn Escobar M.D. May 13, 2018 12:20
[2018-05-13 16:00] VITALS: BP 153/78
--- NOTE | 2018-05-13 16:18 | Internal Med Progress Note ---
Subjective Date of Service: May 13, 2018 Physician Name Chicho Ring Attending Physician Librado Faria MD Current Medications Medications (Trade) Dose Ordered Sig/Brian Route PRN Reason Start Time Stop Time Status Last Admin Dose Admin Acetaminophen (Tylenol) 650 mg Q4H PRN ORAL fever 05/08/18 15:30 06/07/18 15:29 05/08/18 22:42 Amlodipine Besylate (Norvasc) 2.5 mg DAILY ORAL 05/09/18 09:00 06/08/18 08:59 05/13/18 08:57 Aspirin (ASA) 81 mg DAILY ORAL 05/09/18 09:00 06/08/18 08:59 05/13/18 08:57 Heparin Sodium (Porcine) (Heparin 5000 units/ml) 5,000 units EVERY 12 HOURS SUBQ 05/08/18 21:00 06/07/18 20:59 05/13/18 08:57 Levothyroxine Sodium (Synthroid) 75 mcg DAILY@0630 ORAL 05/09/18 06:30 06/08/18 06:29 05/13/18 05:40 Lorazepam (Ativan) 1 mg Q6H PRN ORAL For Anxiety 05/09/18 13:15 05/16/18 13:14 Morphine Sulfate (Morphine Sulfate) 2 mg Q4H PRN IVP Moderate Pain (Pain Scale 4-6) 05/08/18 15:30 05/15/18 15:29 Nitroglycerin (Ntg) 0.4 mg Q5M PRN SL Prn Chest Pain 05/08/18 15:30 06/07/18 15:29 Ondansetron HCl (Zofran) 4 mg Q6H PRN IVP Nausea & Vomiting 05/08/18 15:30 06/07/18 15:29 Polyethylene Glycol (Miralax) 17 gm DAILYPRN PRN ORAL Constipation 05/08/18 15:30 06/07/18 15:29 Potassium Chloride (K-Dur) 20 meq TWICE A DAY ORAL 05/09/18 09:00 06/08/18 08:59 05/13/18 08:57 Temazepam (Restoril) 15 mg HSPRN PRN ORAL Insomnia 05/08/18 15:30 05/15/18 15:29 Vancomycin HCl (Vanco rx to dose) 1 ea DAILY PRN MISC PER RX PROTOCOL 05/10/18 11:30 06/09/18 11:29 Vancomycin HCl 1 gm/Dextrose 275 ml @ 183.708 mls/hr Q24H IVPB 05/11/18 21:00 05/16/18 20:59 05/12/18 20:29 Allergies: Coded Allergies: No Known Allergies (Unverified , 06/15/12) ROS Limited/Unobtainable: No Constitutional: Reports: no symptoms HEENT: Reports: no symptoms Cardiovascular: Reports: no symptoms Respiratory: Reports: no symptoms Gastrointestinal/Abdominal: Reports: no symptoms Genitourinary: Reports: no symptoms Neurologic/Psychiatric: Reports: no symptoms Subjective 82 YO M admitted with right leg pain. Now cellulitis right leg. Cover for Int Jaswinder-Dr Faria Objective Last Vital Signs Date Time Temp Pulse Resp B/P (MAP) Pulse Ox O2 Delivery O2 Flow Rate FiO2 05/13/18 12:00 98.0 76 18 149/78 (101) 100 98.0 05/13/18 09:00 Room Air 05/13/18 09:00 21 Laboratory Tests Test 05/13/18 08:05 White Blood Count 5.8 K/UL (4.8-10.8) Red Blood Count 5.14 M/UL (4.70-6.10) Hemoglobin 12.5 G/DL (14.2-18.0) L Hematocrit 40.3 % (42.0-52.0) L Mean Corpuscular Volume 78 FL (80-99) L Mean Corpuscular Hemoglobin 24.4 PG (27.0-31.0) L Mean Corpuscular Hemoglobin Concent 31.1 G/DL (32.0-36.0) L Red Cell Distribution Width 15.1 % (11.6-14.8) H Platelet Count 134 K/UL (150-450) L Mean Platelet Volume 7.1 FL (6.5-10.1) Neutrophils (%) (Auto) 60.6 % (45.0-75.0) Lymphocytes (%) (Auto) 20.7 % (20.0-45.0) Monocytes (%) (Auto) 8.3 % (1.0-10.0) Eosinophils (%) (Auto) 8.9 % (0.0-3.0) H Basophils (%) (Auto) 1.5 % (0.0-2.0) Sodium Level 138 MMOL/L (136-145) Potassium Level 4.6 MMOL/L (3.5-5.1) Chloride Level 107 MMOL/L (98-107) Carbon Dioxide Level 25 MMOL/L (21-32) Anion Gap 6 mmol/L (5-15) Blood Urea Nitrogen 11 mg/dL (7-18) Creatinine 0.9 MG/DL (0.55-1.30) Estimat Glomerular Filtration Rate mL/min (>60) Glucose Level 120 MG/DL (74-106) H Calcium Level 9.5 MG/DL (8.5-10.1) Pro-B-Type Natriuretic Peptide 1227 pg/mL (0-125) H Intake and Output 05/12/18 05/13/18 19:00 07:00 Intake Total 800 ml 595.000 ml Balance 800 ml 595.000 ml Intake Oral 800 ml 320 ml IV Total 275.000 ml # Voids 5 4 Objective General Appearance: WD/WN, no apparent distress, alert EENT: PERRL/EOMI, normal ENT inspection Neck: non-tender, normal alignment, supple, normal inspection Cardiovascular: normal peripheral pulses, normal rate, regular rhythm, no gallop/murmur, no JVD Respiratory/Chest: chest wall non-tender, lungs clear, normal breath sounds, no respiratory distress, no accessory muscle use Abdomen: normal bowel sounds, non tender, soft, no organomegaly, no mass Extremities: normal range of motion, non-tender Edema: trace edema Neurologic: director of product management II-XII grossly normal, no motor/sensory deficits Skin: normal pigmentation, warm/dry, other - erythema right leg Assessment/Plan Problem List: (1) Cellulitis of right leg Assessment & Plan: see ID note. continue vanco and D/C cefepime. Await cultures (2) Pain in right leg (3) Leukocytosis Assessment & Plan: Resolved (4) HTN (hypertension) Assessment & Plan: Continue amlodipine (5) Hypothyroidism Assessment & Plan: continue levoxyl Status: progressing Chicho Ring MD May 13, 2018 16:18
[2018-05-13] MEDS ORDERED: Gadavist 7.5mMol/7.5ml vial IV PRN (16:45)
[2018-05-13 20:00] VITALS: BP 138/63
[2018-05-13] MEDS: Vancomycin 1gm/D5W 275ml IVPB SCH ×2 (20:54)
[2018-05-14 00:32] VITALS: BP 158/90
[2018-05-14 04:46] VITALS: BP 151/78
[2018-05-14 07:12] LABS: ANION GAP 8 mmol/L (5-15); BLOOD UREA NITROGEN 13 mg/dL (7-18); CALCIUM 9.1 MG/DL (8.5-10.1); CARBON DIOXIDE 25 MMOL/L (21-32); CHLORIDE 104 MMOL/L (98-107); CREATININE 1.1 MG/DL (0.55-1.30); POTASSIUM 4.3 MMOL/L (3.5-5.1); SODIUM 137 MMOL/L (136-145)
[2018-05-14 07:20] LABS: BASOPHILS % (AUTO) 1.5 % (0.0-2.0); EOSINOPHILS % (AUTO) 7.1 % (0.0-3.0); HEMATOCRIT 36.9 % (42.0-52.0); HEMOGLOBIN 11.8 G/DL (14.2-18.0); LYMPHOCYTES % (AUTO) 21.2 % (20.0-45.0); MEAN CORPUSCULAR VOLUME 78 FL (80-99); NEUTROPHILS % (AUTO) 58.2 % (45.0-75.0); PLATELET COUNT 260 K/UL (150-450); RED BLOOD COUNT 4.74 M/UL (4.70-6.10); RED CELL DISTRIBUTION WIDTH 15.1 % (11.6-14.8); WHITE BLOOD COUNT 6.8 K/UL (4.8-10.8)
--- NOTE | 2018-05-14 07:54 | Consultation ---
Consult Note Assessment/Plan A/ 1) Cellulitis right lower extremity 2) Onycholysis right hallux toenail 3) Chronic edema P/ 1) Cont abx per ID. No surgical intervention indicated 2) Will order wound care for right hallux 3) Elevate lower extremities Thank you Wyatt Munson DPM May 14, 2018 07:54
[2018-05-14 08:00] VITALS: BP 156/82
[2018-05-14] MEDS: Aspirin Baby 81mg ORAL SCH (08:57)
[2018-05-14] MEDS: Heparin 5000 units/ml inj SUBQ SCH ×2 (08:59→20:25)
--- NOTE | 2018-05-14 09:58 | Diagnostic Imaging Report ---
Indication: Shortness of breath Technique: One view of the chest Comparison: 05/08/2018 Findings: Bilateral diffuse interstitial congestion, probable small right pleural effusion, cardiomegaly all persist, unchanged. Impression: Unchanged, over 5 days, findings as above.
--- NOTE | 2018-05-14 10:00 | Infectious Diseases Prog Note ---
Assessment/Plan Assessment/Plan The patient is a 82-year-old male with: Right lower extremity cellulitis. -Bx NTD Leukocytosis, SP Probable sepsis, SP Probable dehydration/prerenal failure. Assymptomatic bacteriuria -u/a neg, ucx 10-20K E.faecalis (camara S) PLAN: Continue the patient on IV vancomycin d#5/7 - If he need to be d/c on PO medication he could finish the course with Augmentin 500mg BID until 05/16/1805/10 SP cefepime d#2. Monitor CBC. Monitor BMP. Monitor cultures ( blood). Monitor the patient's renal function Monitor for improvement of the patient's right lower extremity cellulitis. Thank you, Dr. Lazcano and Dr. Ring, for allowing me to participate in the care of this patient. I will follow the patient with you during this hospitalization. Subjective Allergies: Coded Allergies: No Known Allergies (Unverified , 06/15/12) Subjective Afebrile Comfortable Objective Vital Signs Last 24 Hour Vital Signs Date Time Temp Pulse Resp B/P (MAP) Pulse Ox O2 Delivery O2 Flow Rate FiO2 05/14/18 08:57 87 156/82 05/14/18 04:46 151/78 (102) 05/14/18 04:00 98.6 93 20 99 98.6 05/14/18 00:32 98.7 88 20 158/90 (112) 96 98.7 05/13/18 21:23 98 18 Room Air 21 05/13/18 21:00 Room Air 05/13/18 20:00 97.8 75 20 138/63 (88) 98 97.8 05/13/18 16:00 97.9 80 18 153/78 (103) 100 97.9 05/13/18 12:00 98.0 76 18 149/78 (101) 100 98.0 Height (Feet): 5 Height (Inches): 4.00 Weight (Pounds): 160 Objective HEENT: NCAT, MMM CHEST: CTAB HEART: RR, S1 and S2. ABDOMEN: Soft. ND EXTREMITIES: Bilateral lower extremity cellulitis/erythema. NEUROLOGIC: Awake, nonverbal. Laboratory Tests Test 05/14/18 06:20 White Blood Count 6.8 K/UL (4.8-10.8) Red Blood Count 4.74 M/UL (4.70-6.10) Hemoglobin 11.8 G/DL (14.2-18.0) L Hematocrit 36.9 % (42.0-52.0) L Mean Corpuscular Volume 78 FL (80-99) L Mean Corpuscular Hemoglobin 24.8 PG (27.0-31.0) L Mean Corpuscular Hemoglobin Concent 31.8 G/DL (32.0-36.0) L Red Cell Distribution Width 15.1 % (11.6-14.8) H Platelet Count 260 K/UL (150-450) # Mean Platelet Volume 8.0 FL (6.5-10.1) Neutrophils (%) (Auto) 58.2 % (45.0-75.0) Lymphocytes (%) (Auto) 21.2 % (20.0-45.0) Monocytes (%) (Auto) 12.0 % (1.0-10.0) H Eosinophils (%) (Auto) 7.1 % (0.0-3.0) H Basophils (%) (Auto) 1.5 % (0.0-2.0) Sodium Level 137 MMOL/L (136-145) Potassium Level 4.3 MMOL/L (3.5-5.1) Chloride Level 104 MMOL/L (98-107) Carbon Dioxide Level 25 MMOL/L (21-32) Anion Gap 8 mmol/L (5-15) Blood Urea Nitrogen 13 mg/dL (7-18) Creatinine 1.1 MG/DL (0.55-1.30) Estimat Glomerular Filtration Rate mL/min (>60) Glucose Level 83 MG/DL (74-106) Calcium Level 9.1 MG/DL (8.5-10.1) Current Medications Medications (Trade) Dose Ordered Sig/Brian Route PRN Reason Start Time Stop Time Status Last Admin Dose Admin Acetaminophen (Tylenol) 650 mg Q4H PRN ORAL fever 05/08/18 15:30 06/07/18 15:29 05/08/18 22:42 Amlodipine Besylate (Norvasc) 2.5 mg DAILY ORAL 05/09/18 09:00 06/08/18 08:59 05/14/18 08:57 Aspirin (ASA) 81 mg DAILY ORAL 05/09/18 09:00 06/08/18 08:59 05/14/18 08:57 Gadobutrol (Gadavist) 7.5 mmol NOW PRN IV Radiology Procedure 05/13/18 16:45 05/17/18 16:42 Heparin Sodium (Porcine) (Heparin 5000 units/ml) 5,000 units EVERY 12 HOURS SUBQ 05/13/18 21:00 06/07/18 20:59 05/14/18 08:59 Levothyroxine Sodium (Synthroid) 75 mcg DAILY@0630 ORAL 05/09/18 06:30 06/08/18 06:29 05/14/18 05:54 Lorazepam (Ativan) 1 mg Q6H PRN ORAL For Anxiety 05/09/18 13:15 05/16/18 13:14 Morphine Sulfate (Morphine Sulfate) 2 mg Q4H PRN IVP Moderate Pain (Pain Scale 4-6) 05/08/18 15:30 05/15/18 15:29 Nitroglycerin (Ntg) 0.4 mg Q5M PRN SL Prn Chest Pain 05/08/18 15:30 06/07/18 15:29 Ondansetron HCl (Zofran) 4 mg Q6H PRN IVP Nausea & Vomiting 05/08/18 15:30 06/07/18 15:29 Polyethylene Glycol (Miralax) 17 gm DAILYPRN PRN ORAL Constipation 05/08/18 15:30 06/07/18 15:29 Potassium Chloride (K-Dur) 20 meq TWICE A DAY ORAL 05/09/18 09:00 06/08/18 08:59 05/14/18 08:56 Temazepam (Restoril) 15 mg HSPRN PRN ORAL Insomnia 05/08/18 15:30 05/15/18 15:29 Vancomycin HCl (Vanco rx to dose) 1 ea DAILY PRN MISC PER RX PROTOCOL 05/10/18 11:30 06/09/18 11:29 Vancomycin HCl 1 gm/Dextrose 275 ml @ 183.708 mls/hr Q24H IVPB 05/11/18 21:00 05/16/18 20:59 05/13/18 20:54 Paulo Herrera MD May 14, 2018 10:00
--- NOTE | 2018-05-14 11:54 | General Progress Note ---
Assessment/Plan Status: stable Assessment/Plan DD Encephalopathy due to [facility] [place] remeron restoril provided ro/st Subjective Date patient seen: May 14, 2018 Neurologic/Psychiatric: Reports: anxiety, depressed Allergies: Coded Allergies: No Known Allergies (Unverified , 06/15/12) Subjective min verbal Objective Last 24 Hour Vital Signs Date Time Temp Pulse Resp B/P (MAP) Pulse Ox O2 Delivery O2 Flow Rate FiO2 05/14/18 09:00 Room Air 05/14/18 08:57 87 156/82 05/14/18 08:00 97.2 87 18 156/82 (106) 100 97.2 05/14/18 04:46 151/78 (102) 05/14/18 04:00 98.6 93 20 99 98.6 05/14/18 00:32 98.7 88 20 158/90 (112) 96 98.7 05/13/18 21:23 98 18 Room Air 21 05/13/18 21:00 Room Air 05/13/18 20:00 97.8 75 20 138/63 (88) 98 97.8 05/13/18 16:00 97.9 80 18 153/78 (103) 100 97.9 05/13/18 12:00 98.0 76 18 149/78 (101) 100 98.0 Intake and Output 05/13/18 05/14/18 19:00 07:00 Intake Total 840 ml 275.000 ml Balance 840 ml 275.000 ml Intake Oral 840 ml IV Total 275.000 ml # Voids 1 4 # Bowel Movements 1 Laboratory Tests 05/14/18 06:20: White Blood Count 6.8, Red Blood Count 4.74, Hemoglobin 11.8L, Hematocrit 36.9L , Mean Corpuscular Volume 78L, Mean Corpuscular Hemoglobin 24.8L, Mean Corpuscular Hemoglobin Concent 31.8L, Red Cell Distribution Width 15.1H, Platelet Count 260#, Mean Platelet Volume 8.0, Neutrophils (%) (Auto) 58.2, Lymphocytes (%) (Auto) 21.2, Monocytes (%) (Auto) 12.0H, Eosinophils (%) (Auto) 7.1H, Basophils (%) (Auto) 1.5, Sodium Level 137, Potassium Level 4.3, Chloride Level 104, Carbon Dioxide Level 25, Anion Gap 8, Blood Urea Nitrogen 13, Creatinine 1.1, Estimat Glomerular Filtration Rate , Glucose Level 83, Calcium Level 9.1 Height (Feet): 5 Height (Inches): 4.00 Weight (Pounds): 160 General Appearance: no apparent distress, alert, confused Loulou Gutierrez MD May 14, 2018 11:54
[2018-05-14 12:00] VITALS: BP 135/63
--- NOTE | 2018-05-14 12:06 | Diagnostic Imaging Report ---
. Indication: Pain and swelling Technique: 2 views right foot Comparison: none Findings: Exam is somewhat limited due to the availability of only 2 views. No definite acute fractures. No dislocations. The joint spaces are preserved. Impression: No definite acute process
--- NOTE | 2018-05-14 12:15 | Consultation ---
DATE OF CONSULTATION: 05/14/2018 CONSULTING PHYSICIAN: Wyatt Albarran D.P.M. REQUESTING PHYSICIAN: Chicho Ring M.D. REASON FOR CONSULTATION: Cellulitis, right lower extremity. HISTORY OF PRESENT ILLNESS: The patient is an 82-year-old male, who was admitted to [facility] on May 08, 2018 for cellulitis. The patient is minimally verbal and history was obtained through chart review. PAST MEDICAL HISTORY: Significant for hypertension and hypothyroidism. ALLERGIES: No known drug allergies. MEDICATIONS: Per MAR and currently include heparin for DVT prophylaxis and vancomycin. FAMILY HISTORY: Noncontributory. SOCIAL HISTORY: Noncontributory. REVIEW OF SYSTEMS: Deferred due to verbal status. PHYSICAL EXAMINATION: VITAL SIGNS: Temperature is 98.6, pulse is 93, respirations 20, blood pressure is 151/78, and saturating 99% on room air. EXTREMITIES: Lower extremity physical exam, vascular, palpable pedal pulses noted bilaterally. Feet are equally warm. There is 2+ pitting edema noted bilaterally. No cyanosis. DERMATOLOGICAL: There is erythema noted on the right lower extremity, which appears mild in nature. No signs of fluctuance or abscesses. Interdigital spaces are clear bilaterally. Nails are mildly elongated. Right hallux nail appears to be slightly detached from the right hallux. No signs of purulence noted from the site. MUSCULOSKELETAL: No gross deformities noted. NEUROLOGICAL: The patient response to noxious stimuli. LABORATORY AND DIAGNOSTIC DATA: White blood cell count is 6.8, down from his admission of 25.5, hemoglobin and hematocrit is 11.8 and 36.9, and platelet count is 260. Potassium is 4.3, BUN is 13, creatinine is 1.1, and glucose is 83. Albumin is 2.4. INR is 1.1. No lower extremity imaging is noted. ASSESSMENT: 1. Cellulitis, right lower extremity. 2. Onycholysis, right hallux toenail. 3. Chronic edema. PLAN: 1. Continue antibiotics per ID. No surgical intervention indicated at this time. 2. We will order wound care for the right hallux. 3. Elevated lower extremities. Thank you for the courtesy of this consultation. Wyatt Albarran D.P.M. DR: TUNDE JOB#: [id number] CC:
--- NOTE | 2018-05-14 13:32 | Pulmonology Progress Note ---
Assessment/Plan Problems: (1) Sepsis (2) COPD (chronic obstructive pulmonary disease) (3) Cellulitis (4) Tachycardia (5) Hypothyroidism (6) HTN (hypertension) (7) Developmental delay Assessment/Plan f/u cultures continue abx respiratory treatment check electrolytes monitor BP MRI today to rule out osteomyelitis Subjective ROS Limited/Unobtainable: No Constitutional: Reports: no symptoms HEENT: Repors: no symptoms Respiratory: Reports: no symptoms Allergies: Coded Allergies: No Known Allergies (Unverified , 06/15/12) Objective Last 24 Hour Vital Signs Date Time Temp Pulse Resp B/P (MAP) Pulse Ox O2 Delivery O2 Flow Rate FiO2 05/14/18 12:00 97.7 95 20 135/63 (87) 100 97.7 05/14/18 09:00 Room Air 05/14/18 08:57 87 156/82 05/14/18 08:00 97.2 87 18 156/82 (106) 100 97.2 05/14/18 04:46 151/78 (102) 05/14/18 04:00 98.6 93 20 99 98.6 05/14/18 00:32 98.7 88 20 158/90 (112) 96 98.7 05/13/18 21:23 98 18 Room Air 21 05/13/18 21:00 Room Air 05/13/18 20:00 97.8 75 20 138/63 (88) 98 97.8 05/13/18 16:00 97.9 80 18 153/78 (103) 100 97.9 Intake and Output 05/13/18 05/14/18 19:00 07:00 Intake Total 840 ml 275.000 ml Balance 840 ml 275.000 ml Intake Oral 840 ml IV Total 275.000 ml # Voids 1 4 # Bowel Movements 1 General Appearance: WD/WN HEENT: normocephalic, atraumatic Respiratory/Chest: chest wall non-tender, lungs clear Cardiovascular: normal peripheral pulses, normal rate Abdomen: normal bowel sounds, soft, non tender, no scars Extremities: no cyanosis Laboratory Tests 05/14/18 06:20: White Blood Count 6.8, Red Blood Count 4.74, Hemoglobin 11.8L, Hematocrit 36.9L , Mean Corpuscular Volume 78L, Mean Corpuscular Hemoglobin 24.8L, Mean Corpuscular Hemoglobin Concent 31.8L, Red Cell Distribution Width 15.1H, Platelet Count 260#, Mean Platelet Volume 8.0, Neutrophils (%) (Auto) 58.2, Lymphocytes (%) (Auto) 21.2, Monocytes (%) (Auto) 12.0H, Eosinophils (%) (Auto) 7.1H, Basophils (%) (Auto) 1.5, Sodium Level 137, Potassium Level 4.3, Chloride Level 104, Carbon Dioxide Level 25, Anion Gap 8, Blood Urea Nitrogen 13, Creatinine 1.1, Estimat Glomerular Filtration Rate , Glucose Level 83, Calcium Level 9.1 Current Medications Medications (Trade) Dose Ordered Sig/Brian Route PRN Reason Start Time Stop Time Status Last Admin Dose Admin Acetaminophen (Tylenol) 650 mg Q4H PRN ORAL fever 05/08/18 15:30 06/07/18 15:29 05/08/18 22:42 Amlodipine Besylate (Norvasc) 2.5 mg DAILY ORAL 05/09/18 09:00 06/08/18 08:59 05/14/18 08:57 Aspirin (ASA) 81 mg DAILY ORAL 05/09/18 09:00 06/08/18 08:59 05/14/18 08:57 Gadobutrol (Gadavist) 7.5 mmol NOW PRN IV Radiology Procedure 05/13/18 16:45 05/17/18 16:42 Heparin Sodium (Porcine) (Heparin 5000 units/ml) 5,000 units EVERY 12 HOURS SUBQ 05/13/18 21:00 06/07/18 20:59 05/14/18 08:59 Levothyroxine Sodium (Synthroid) 75 mcg DAILY@0630 ORAL 05/09/18 06:30 06/08/18 06:29 05/14/18 05:54 Lorazepam (Ativan) 1 mg Q6H PRN ORAL For Anxiety 05/09/18 13:15 05/16/18 13:14 Morphine Sulfate (Morphine Sulfate) 2 mg Q4H PRN IVP Moderate Pain (Pain Scale 4-6) 05/08/18 15:30 05/15/18 15:29 Nitroglycerin (Ntg) 0.4 mg Q5M PRN SL Prn Chest Pain 05/08/18 15:30 06/07/18 15:29 Ondansetron HCl (Zofran) 4 mg Q6H PRN IVP Nausea & Vomiting 05/08/18 15:30 06/07/18 15:29 Polyethylene Glycol (Miralax) 17 gm DAILYPRN PRN ORAL Constipation 05/08/18 15:30 06/07/18 15:29 Potassium Chloride (K-Dur) 20 meq TWICE A DAY ORAL 05/09/18 09:00 06/08/18 08:59 05/14/18 08:56 Temazepam (Restoril) 15 mg HSPRN PRN ORAL Insomnia 05/08/18 15:30 05/15/18 15:29 Vancomycin HCl (Vanco rx to dose) 1 ea DAILY PRN MISC PER RX PROTOCOL 05/10/18 11:30 06/09/18 11:29 Vancomycin HCl 1 gm/Dextrose 275 ml @ 183.708 mls/hr Q24H IVPB 05/11/18 21:00 05/16/18 20:59 05/13/18 20:54 Yolanda Lazcano MD May 14, 2018 13:32
[2018-05-14 16:00] VITALS: BP_SYST 155; BP_SYST 165; BP_DIAS 85
--- NOTE | 2018-05-14 16:11 | Diagnostic Imaging Report ---
Indication: Swelling of the right foot Technique: Sagittal, axial, coronal T1 fast spin echo and fast spin echo STIR images of the right forefoot Comparison: Plain radiographs of earlier the same day Findings: Exam is considerably limited due to patient inability to completely flex ankle and inability to hold still There is considerable dorsal soft tissue edema. No definite focal collections are noted. On the sagittal images, there is questionably some subtle slightly increased T2 and decreased T1 signal within the first distal phalanx. This is not corroborated on other sequences, however. No other definite marrow signal abnormality is demonstrated, although motion artifact considerably compromises the visualization, particularly of the phalanges. Impression: No definite evidence of osteomyelitis. However, given motion artifact limiting visualization, osteomyelitis of the phalanges and particular the first distal phalanx is difficult to confluent exclude Dorsal edema. This could be vasculogenic or could be on the basis of cellulitis. No focal drainable abscess is demonstrated
--- NOTE | 2018-05-14 16:37 | Diagnostic Imaging Report ---
Indication: Lower extremity swelling and pain Technique: Sagittal, axial, coronal T1 fast spin echo and fast spin echo STIR images of the right ankle and hindfoot Comparison: none Findings: There is extensive circumferential soft tissue edema about the ankle and predominantly dorsal soft tissue edema about the midfoot. No definite confluent fluid signal foci to suggest abscess, although edema is sufficiently intense that drainable fluid collections are difficult to completely exclude, particularly in the dorsomedial forefoot and medial ankle subcutaneous fat. No significant joint effusion. There is a somewhat irregular focus of increased STIR and decreased T1 signal in the calcaneus. No other definite marrow signal abnormalities are demonstrated. Major tendons are grossly unremarkable Impression: Considerable soft tissue edema, as described. This could represent vasculogenic edema or cellulitis. No definite focal drainable abscess collection, although difficult to confidently exclude given the extent of the edema. Ultrasound may be useful for further evaluation if there is clinical concern for such Small somewhat stellate focus of abnormal signal in the calcaneus. Uncertain significance, but doubt osteomyelitis as etiology given at the configuration is not typical for such an appears to be remote from any significant soft tissue abnormality. No findings to suggest acute osteomyelitis otherwise
--- NOTE | 2018-05-14 17:09 | Cardiology Report ---
APPROVED REPORT EXAM: Two-dimensional and M-mode echocardiogram with Doppler and color Doppler. INDICATION Congestive Heart Failure M-Mode DIMENSIONS IVSd1.0 (0.7-1.1cm)Left Atrium (MM)4.1 (1.6-4.0cm) LVDd4.8 (3.5-5.6cm)Aortic Root2.6 (2.0-3.7cm) PWd0.8 (0.7-1.1cm)Aortic Cusp Exc.1.7 (1.5-2.0cm) LVDs2.5 (2.5-4.0cm) PWs1.6 cm Normal left ventricular chamber size, systolic function and wall motion. Left ventricular ejection fraction estimated to be 60 %. Borderline left ventricular hypertrophy. Anterior Echo-free space, may be due to pericardial fat or effusion. Mild left atrial enlargement. Right cardiac chamber sizes are within normal limits. Mild focal aortic valve sclerosis with adequate cusp excursion. Mildly thickened mitral valve leaflets with normal excursion. Mild mitral annulus and aortic root calcification. Normal pulmonic valve structure. Normal tricuspid valve structure. IVC is normal in size with physiological collapse. A color flow and spectral Doppler study was performed and revealed: Mild to moderate aortic insufficiency. Mild mitral regurgitation. Normal left ventricular diastolic function. Mild tricuspid regurgitation. Tricuspid systolic velocities suggests peak right ventricular systolic pressure of 33 mmHg. Trace pulmonic regurgitation present.
--- NOTE | 2018-05-14 18:13 | Internal Med Progress Note ---
Subjective Date of Service: May 14, 2018 Physician Name María ElenaChicho Attending Physician Librado Faria MD Current Medications Medications (Trade) Dose Ordered Sig/Brian Route PRN Reason Start Time Stop Time Status Last Admin Dose Admin Acetaminophen (Tylenol) 650 mg Q4H PRN ORAL fever 05/08/18 15:30 06/07/18 15:29 05/08/18 22:42 Amlodipine Besylate (Norvasc) 2.5 mg DAILY ORAL 05/09/18 09:00 06/08/18 08:59 05/14/18 08:57 Aspirin (ASA) 81 mg DAILY ORAL 05/09/18 09:00 06/08/18 08:59 05/14/18 08:57 Gadobutrol (Gadavist) 7.5 mmol NOW PRN IV Radiology Procedure 05/13/18 16:45 05/17/18 16:42 Heparin Sodium (Porcine) (Heparin 5000 units/ml) 5,000 units EVERY 12 HOURS SUBQ 05/13/18 21:00 06/07/18 20:59 05/14/18 08:59 Levothyroxine Sodium (Synthroid) 75 mcg DAILY@0630 ORAL 05/09/18 06:30 06/08/18 06:29 05/14/18 05:54 Lorazepam (Ativan) 1 mg Q6H PRN ORAL For Anxiety 05/09/18 13:15 05/16/18 13:14 Morphine Sulfate (Morphine Sulfate) 2 mg Q4H PRN IVP Moderate Pain (Pain Scale 4-6) 05/08/18 15:30 05/15/18 15:29 Nitroglycerin (Ntg) 0.4 mg Q5M PRN SL Prn Chest Pain 05/08/18 15:30 06/07/18 15:29 Ondansetron HCl (Zofran) 4 mg Q6H PRN IVP Nausea & Vomiting 05/08/18 15:30 06/07/18 15:29 Polyethylene Glycol (Miralax) 17 gm DAILYPRN PRN ORAL Constipation 05/08/18 15:30 06/07/18 15:29 Potassium Chloride (K-Dur) 20 meq TWICE A DAY ORAL 05/09/18 09:00 06/08/18 08:59 05/14/18 08:56 Temazepam (Restoril) 15 mg HSPRN PRN ORAL Insomnia 05/08/18 15:30 05/15/18 15:29 Vancomycin HCl (Vanco rx to dose) 1 ea DAILY PRN MISC PER RX PROTOCOL 05/10/18 11:30 06/09/18 11:29 Vancomycin HCl 1 gm/Dextrose 275 ml @ 183.708 mls/hr Q24H IVPB 05/11/18 21:00 05/16/18 20:59 05/13/18 20:54 Allergies: Coded Allergies: No Known Allergies (Unverified , 06/15/12) ROS Limited/Unobtainable: No Constitutional: Reports: no symptoms HEENT: Reports: no symptoms Cardiovascular: Reports: no symptoms Respiratory: Reports: no symptoms Gastrointestinal/Abdominal: Reports: no symptoms Genitourinary: Reports: no symptoms Neurologic/Psychiatric: Reports: no symptoms Subjective 82 YO M admitted with right leg pain. Now cellulitis right leg. Cover for Int Jaswinder-Dr Faria Objective Last Vital Signs Date Time Temp Pulse Resp B/P (MAP) Pulse Ox O2 Delivery O2 Flow Rate FiO2 05/14/18 16:00 97.4 94 18 155/85 (108) 100 97.4 05/14/18 09:00 Room Air 05/13/18 21:23 21 Laboratory Tests Test 05/14/18 06:20 White Blood Count 6.8 K/UL (4.8-10.8) Red Blood Count 4.74 M/UL (4.70-6.10) Hemoglobin 11.8 G/DL (14.2-18.0) L Hematocrit 36.9 % (42.0-52.0) L Mean Corpuscular Volume 78 FL (80-99) L Mean Corpuscular Hemoglobin 24.8 PG (27.0-31.0) L Mean Corpuscular Hemoglobin Concent 31.8 G/DL (32.0-36.0) L Red Cell Distribution Width 15.1 % (11.6-14.8) H Platelet Count 260 K/UL (150-450) # Mean Platelet Volume 8.0 FL (6.5-10.1) Neutrophils (%) (Auto) 58.2 % (45.0-75.0) Lymphocytes (%) (Auto) 21.2 % (20.0-45.0) Monocytes (%) (Auto) 12.0 % (1.0-10.0) H Eosinophils (%) (Auto) 7.1 % (0.0-3.0) H Basophils (%) (Auto) 1.5 % (0.0-2.0) Sodium Level 137 MMOL/L (136-145) Potassium Level 4.3 MMOL/L (3.5-5.1) Chloride Level 104 MMOL/L (98-107) Carbon Dioxide Level 25 MMOL/L (21-32) Anion Gap 8 mmol/L (5-15) Blood Urea Nitrogen 13 mg/dL (7-18) Creatinine 1.1 MG/DL (0.55-1.30) Estimat Glomerular Filtration Rate mL/min (>60) Glucose Level 83 MG/DL (74-106) Calcium Level 9.1 MG/DL (8.5-10.1) Intake and Output 05/13/18 05/14/18 19:00 07:00 Intake Total 840 ml 275.000 ml Balance 840 ml 275.000 ml Intake Oral 840 ml IV Total 275.000 ml # Voids 1 4 # Bowel Movements 1 Objective General Appearance: WD/WN, no apparent distress, alert EENT: PERRL/EOMI, normal ENT inspection Neck: non-tender, normal alignment, supple, normal inspection Cardiovascular: normal peripheral pulses, normal rate, regular rhythm, no gallop/murmur, no JVD Respiratory/Chest: chest wall non-tender, lungs clear, normal breath sounds, no respiratory distress, no accessory muscle use Abdomen: normal bowel sounds, non tender, soft, no organomegaly, no mass Extremities: normal range of motion, non-tender Edema: trace edema 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 continue vanco D #01/14. (2) Pain in right leg (3) Leukocytosis Assessment & Plan: Resolved (4) HTN (hypertension) Assessment & Plan: Continue amlodipine (5) Hypothyroidism Assessment & Plan: continue levoxyl Status: stable Chicho Ring MD May 14, 2018 18:13
[2018-05-14 20:00] VITALS: BP 151/70
[2018-05-14] MEDS ORDERED: Vancomycin 1250mg/D5W 250ml IVPB SCH (22:00)
[2018-05-15] VITALS: BP 117/77
[2018-05-15 04:00] VITALS: BP 130/66
[2018-05-15 06:35] LABS: BASOPHILS % (AUTO) 1.2 % (0.0-2.0); EOSINOPHILS % (AUTO) 9.5 % (0.0-3.0); HEMATOCRIT 35.3 % (42.0-52.0); HEMOGLOBIN 11.2 G/DL (14.2-18.0); LYMPHOCYTES % (AUTO) 24.1 % (20.0-45.0); MEAN CORPUSCULAR VOLUME 78 FL (80-99); MONOCYTES % (AUTO) 13.2 % (1.0-10.0); NEUTROPHILS % (AUTO) 52.1 % (45.0-75.0); PLATELET COUNT 272 K/UL (150-450); RED BLOOD COUNT 4.55 M/UL (4.70-6.10); WHITE BLOOD COUNT 6.7 K/UL (4.8-10.8)
[2018-05-15 06:48] LABS: ALANINE AMINOTRANSFERASE 56 U/L (12-78); ALBUMIN 2.8 G/DL (3.4-5.0); ALBUMIN/GLOBULIN RATIO 0.6 (1.0-2.7); ALKALINE PHOSPHATASE 91 U/L (46-116); ANION GAP 7 mmol/L (5-15); ASPARTATE AMINO TRANSFERASE 64 U/L (15-37); BILIRUBIN,TOTAL 0.4 MG/DL (0.2-1.0); BLOOD UREA NITROGEN 13 mg/dL (7-18); CALCIUM 9.2 MG/DL (8.5-10.1); CARBON DIOXIDE 27 MMOL/L (21-32); CHLORIDE 107 MMOL/L (98-107); PHOSPHORUS 2.8 MG/DL (2.5-4.9); POTASSIUM 4.6 MMOL/L (3.5-5.1); SODIUM 141 MMOL/L (136-145)
[2018-05-15 09:00] VITALS: BP 123/67
[2018-05-15] MEDS: Aspirin Baby 81mg ORAL SCH (09:00)
[2018-05-15] MEDS: Heparin 5000 units/ml inj SUBQ SCH (09:01)
[2018-05-15 12:00] VITALS: BP 145/70
--- NOTE | 2018-05-15 13:28 | Infectious Diseases Prog Note ---
Assessment/Plan Assessment/Plan The patient is a 82-year-old male with: Right lower extremity cellulitis. -Bx NTD Leukocytosis, SP Probable sepsis, SP Probable dehydration/prerenal failure. Assymptomatic bacteriuria -u/a neg, ucx 10-20K E.faecalis (camara S) PLAN: Continue the patient on IV vancomycin d#6/7 - If he need to be d/c on PO medication he could finish the course with Augmentin 500mg BID until 05/16/1805/10 SP cefepime d#2. Monitor CBC. Monitor BMP. Monitor cultures ( blood). Monitor the patient's renal function Monitor for improvement of the patient's right lower extremity cellulitis. I will follow the patient with you during this hospitalization. Subjective Allergies: Coded Allergies: No Known Allergies (Unverified , 06/15/12) Subjective Afebrile Comfortable laying in bed Objective Vital Signs Last 24 Hour Vital Signs Date Time Temp Pulse Resp B/P (MAP) Pulse Ox O2 Delivery O2 Flow Rate FiO2 05/15/18 12:00 97.8 80 18 145/70 (95) 99 97.8 05/15/18 09:00 98.9 81 18 123/67 (85) 100 98.9 05/15/18 09:00 81 123/67 05/15/18 09:00 Room Air 05/15/18 04:00 97.3 82 14 130/66 (87) 99 97.3 05/15/18 00:00 97.3 82 15 117/77 (90) 100 97.3 05/14/18 21:00 Room Air 05/14/18 20:00 97.6 90 16 151/70 (97) 97 97.6 05/14/18 16:00 97.4 94 18 155/85 (108) 100 97.4 Height (Feet): 5 Height (Inches): 4.00 Weight (Pounds): 160 Objective GEN: NAD HEENT: NCAT, MMM CHEST: CTAB HEART: RR, S1 and S2. ABDOMEN: Soft. ND EXTREMITIES: Bilateral lower extremity cellulitis/erythema. NEUROLOGIC: Awake, nonverbal. Laboratory Tests Test 05/14/18 20:20 05/15/18 05:50 Vancomycin Level Trough 9.9 ug/mL (5.0-12.0) White Blood Count 6.7 K/UL (4.8-10.8) Red Blood Count 4.55 M/UL (4.70-6.10) L Hemoglobin 11.2 G/DL (14.2-18.0) L Hematocrit 35.3 % (42.0-52.0) L Mean Corpuscular Volume 78 FL (80-99) L Mean Corpuscular Hemoglobin 24.6 PG (27.0-31.0) L Mean Corpuscular Hemoglobin Concent 31.7 G/DL (32.0-36.0) L Red Cell Distribution Width 15.0 % (11.6-14.8) H Platelet Count 272 K/UL (150-450) Mean Platelet Volume 7.6 FL (6.5-10.1) Neutrophils (%) (Auto) 52.1 % (45.0-75.0) Lymphocytes (%) (Auto) 24.1 % (20.0-45.0) Monocytes (%) (Auto) 13.2 % (1.0-10.0) H Eosinophils (%) (Auto) 9.5 % (0.0-3.0) H Basophils (%) (Auto) 1.2 % (0.0-2.0) Sodium Level 141 MMOL/L (136-145) Potassium Level 4.6 MMOL/L (3.5-5.1) Chloride Level 107 MMOL/L (98-107) Carbon Dioxide Level 27 MMOL/L (21-32) Anion Gap 7 mmol/L (5-15) Blood Urea Nitrogen 13 mg/dL (7-18) Creatinine 1.0 MG/DL (0.55-1.30) Estimat Glomerular Filtration Rate mL/min (>60) Glucose Level 84 MG/DL (74-106) Calcium Level 9.2 MG/DL (8.5-10.1) Phosphorus Level 2.8 MG/DL (2.5-4.9) Magnesium Level 1.9 MG/DL (1.8-2.4) Total Bilirubin 0.4 MG/DL (0.2-1.0) Aspartate Amino Transf (AST/SGOT) 64 U/L (15-37) H Alanine Aminotransferase (ALT/SGPT) 56 U/L (12-78) Alkaline Phosphatase 91 U/L (46-116) Total Protein 7.8 G/DL (6.4-8.2) Albumin 2.8 G/DL (3.4-5.0) L Globulin 5.0 g/dL Albumin/Globulin Ratio 0.6 (1.0-2.7) L Current Medications Medications (Trade) Dose Ordered Sig/Brian Route PRN Reason Start Time Stop Time Status Last Admin Dose Admin Acetaminophen (Tylenol) 650 mg Q4H PRN ORAL fever 05/08/18 15:30 06/07/18 15:29 05/08/18 22:42 Amlodipine Besylate (Norvasc) 2.5 mg DAILY ORAL 05/09/18 09:00 06/08/18 08:59 05/15/18 09:00 Aspirin (ASA) 81 mg DAILY ORAL 05/09/18 09:00 06/08/18 08:59 05/15/18 09:00 Gadobutrol (Gadavist) 7.5 mmol NOW PRN IV Radiology Procedure 05/13/18 16:45 05/17/18 16:42 Heparin Sodium (Porcine) (Heparin 5000 units/ml) 5,000 units EVERY 12 HOURS SUBQ 05/13/18 21:00 06/07/18 20:59 05/15/18 09:01 Levothyroxine Sodium (Synthroid) 75 mcg DAILY@0630 ORAL 05/09/18 06:30 06/08/18 06:29 05/15/18 05:45 Lorazepam (Ativan) 1 mg Q6H PRN ORAL For Anxiety 05/09/18 13:15 05/16/18 13:14 Morphine Sulfate (Morphine Sulfate) 2 mg Q4H PRN IVP Moderate Pain (Pain Scale 4-6) 05/08/18 15:30 05/15/18 15:29 Nitroglycerin (Ntg) 0.4 mg Q5M PRN SL Prn Chest Pain 05/08/18 15:30 06/07/18 15:29 Ondansetron HCl (Zofran) 4 mg Q6H PRN IVP Nausea & Vomiting 05/08/18 15:30 06/07/18 15:29 Polyethylene Glycol (Miralax) 17 gm DAILYPRN PRN ORAL Constipation 05/08/18 15:30 06/07/18 15:29 Potassium Chloride (K-Dur) 20 meq TWICE A DAY ORAL 05/09/18 09:00 06/08/18 08:59 05/15/18 09:00 Temazepam (Restoril) 15 mg HSPRN PRN ORAL Insomnia 05/08/18 15:30 05/15/18 15:29 Vancomycin HCl (Vanco rx to dose) 1 ea DAILY PRN MISC PER RX PROTOCOL 05/10/18 11:30 06/09/18 11:29 Vancomycin HCl/ Dextrose 250 ml @ 166.667 mls/hr Q24H IVPB 05/14/18 22:00 05/19/18 21:59 05/14/18 22:31 Paulo Herrera MD May 15, 2018 13:28
--- NOTE | 2018-05-15 13:28 | Pulmonology Progress Note ---
Assessment/Plan Problems: (1) Sepsis (2) COPD (chronic obstructive pulmonary disease) (3) Cellulitis (4) Tachycardia (5) Hypothyroidism (6) HTN (hypertension) (7) Developmental delay Assessment/Plan MRI negative f/u cultures continue abx respiratory treatment check electrolytes monitor BP MRI today to rule out osteomyelitis Subjective ROS Limited/Unobtainable: No Constitutional: Reports: no symptoms HEENT: Repors: no symptoms Cardiovascular: Reports: no symptoms Allergies: Coded Allergies: No Known Allergies (Unverified , 06/15/12) Objective Last 24 Hour Vital Signs Date Time Temp Pulse Resp B/P (MAP) Pulse Ox O2 Delivery O2 Flow Rate FiO2 05/15/18 12:00 97.8 80 18 145/70 (95) 99 97.8 05/15/18 09:00 98.9 81 18 123/67 (85) 100 98.9 05/15/18 09:00 81 123/67 05/15/18 09:00 Room Air 05/15/18 04:00 97.3 82 14 130/66 (87) 99 97.3 05/15/18 00:00 97.3 82 15 117/77 (90) 100 97.3 05/14/18 21:00 Room Air 05/14/18 20:00 97.6 90 16 151/70 (97) 97 97.6 05/14/18 16:00 97.4 94 18 155/85 (108) 100 97.4 Intake and Output 05/14/18 05/15/18 19:00 07:00 Intake Total 760 ml 250.000 ml Balance 760 ml 250.000 ml Intake Oral 760 ml IV Total 250.000 ml # Voids 3 3 General Appearance: WD/WN HEENT: normocephalic Respiratory/Chest: chest wall non-tender, lungs clear Cardiovascular: normal rate Abdomen: normal bowel sounds, no organomegaly Genitourinary: normal external genitalia Skin: no rash 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 Laboratory Tests 05/14/18 20:20: Vancomycin Level Trough 9.9 05/15/18 05:50: White Blood Count 6.7, Red Blood Count 4.55L, Hemoglobin 11.2L, Hematocrit 35.3L , Mean Corpuscular Volume 78L, Mean Corpuscular Hemoglobin 24.6L, Mean Corpuscular Hemoglobin Concent 31.7L, Red Cell Distribution Width 15.0H, Platelet Count 272, Mean Platelet Volume 7.6, Neutrophils (%) (Auto) 52.1, Lymphocytes (%) (Auto) 24.1, Monocytes (%) (Auto) 13.2H, Eosinophils (%) (Auto) 9.5H, Basophils (%) (Auto) 1.2, Sodium Level 141, Potassium Level 4.6, Chloride Level 107, Carbon Dioxide Level 27, Anion Gap 7, Blood Urea Nitrogen 13, Creatinine 1.0, Estimat Glomerular Filtration Rate , Glucose Level 84, Calcium Level 9.2, Phosphorus Level 2.8, Magnesium Level 1.9, Total Bilirubin 0.4, Aspartate Amino Transf (AST/SGOT) 64H, Alanine Aminotransferase (ALT/SGPT) 56, Alkaline Phosphatase 91, Total Protein 7.8, Albumin 2.8L, Globulin 5.0, Albumin/ Globulin Ratio 0.6L Current Medications Medications (Trade) Dose Ordered Sig/Brian Route PRN Reason Start Time Stop Time Status Last Admin Dose Admin Acetaminophen (Tylenol) 650 mg Q4H PRN ORAL fever 05/08/18 15:30 06/07/18 15:29 05/08/18 22:42 Amlodipine Besylate (Norvasc) 2.5 mg DAILY ORAL 05/09/18 09:00 06/08/18 08:59 05/15/18 09:00 Aspirin (ASA) 81 mg DAILY ORAL 05/09/18 09:00 06/08/18 08:59 05/15/18 09:00 Gadobutrol (Gadavist) 7.5 mmol NOW PRN IV Radiology Procedure 05/13/18 16:45 05/17/18 16:42 Heparin Sodium (Porcine) (Heparin 5000 units/ml) 5,000 units EVERY 12 HOURS SUBQ 05/13/18 21:00 06/07/18 20:59 05/15/18 09:01 Levothyroxine Sodium (Synthroid) 75 mcg DAILY@0630 ORAL 05/09/18 06:30 06/08/18 06:29 05/15/18 05:45 Lorazepam (Ativan) 1 mg Q6H PRN ORAL For Anxiety 05/09/18 13:15 05/16/18 13:14 Morphine Sulfate (Morphine Sulfate) 2 mg Q4H PRN IVP Moderate Pain (Pain Scale 4-6) 05/08/18 15:30 05/15/18 15:29 Nitroglycerin (Ntg) 0.4 mg Q5M PRN SL Prn Chest Pain 05/08/18 15:30 06/07/18 15:29 Ondansetron HCl (Zofran) 4 mg Q6H PRN IVP Nausea & Vomiting 05/08/18 15:30 06/07/18 15:29 Polyethylene Glycol (Miralax) 17 gm DAILYPRN PRN ORAL Constipation 05/08/18 15:30 06/07/18 15:29 Potassium Chloride (K-Dur) 20 meq TWICE A DAY ORAL 05/09/18 09:00 06/08/18 08:59 05/15/18 09:00 Temazepam (Restoril) 15 mg HSPRN PRN ORAL Insomnia 05/08/18 15:30 05/15/18 15:29 Vancomycin HCl (Vanco rx to dose) 1 ea DAILY PRN MISC PER RX PROTOCOL 05/10/18 11:30 06/09/18 11:29 Vancomycin HCl/ Dextrose 250 ml @ 166.667 mls/hr Q24H IVPB 05/14/18 22:00 05/19/18 21:59 05/14/18 22:31 Yolanda Lazcano MD May 15, 2018 13:28
[2018-05-15] MEDS ORDERED: AUGMENTIN 500-1 EACH ORAL (14:21)
[2018-05-15 16:00] VITALS: BP 160/80
--- NOTE | 2018-05-15 17:04 | Internal Med Progress Note ---
Subjective Date of Service: May 15, 2018 Physician Name Chicho Ring Attending Physician Librado Faria MD Current Medications Medications (Trade) Dose Ordered Sig/Brian Route PRN Reason Start Time Stop Time Status Last Admin Dose Admin Acetaminophen (Tylenol) 650 mg Q4H PRN ORAL fever 05/08/18 15:30 06/07/18 15:29 05/08/18 22:42 Amlodipine Besylate (Norvasc) 2.5 mg DAILY ORAL 05/09/18 09:00 06/08/18 08:59 05/15/18 09:00 Aspirin (ASA) 81 mg DAILY ORAL 05/09/18 09:00 06/08/18 08:59 05/15/18 09:00 Gadobutrol (Gadavist) 7.5 mmol NOW PRN IV Radiology Procedure 05/13/18 16:45 05/17/18 16:42 Heparin Sodium (Porcine) (Heparin 5000 units/ml) 5,000 units EVERY 12 HOURS SUBQ 05/13/18 21:00 06/07/18 20:59 05/15/18 09:01 Levothyroxine Sodium (Synthroid) 75 mcg DAILY@0630 ORAL 05/09/18 06:30 06/08/18 06:29 05/15/18 05:45 Lorazepam (Ativan) 1 mg Q6H PRN ORAL For Anxiety 05/09/18 13:15 05/16/18 13:14 Nitroglycerin (Ntg) 0.4 mg Q5M PRN SL Prn Chest Pain 05/08/18 15:30 06/07/18 15:29 Ondansetron HCl (Zofran) 4 mg Q6H PRN IVP Nausea & Vomiting 05/08/18 15:30 06/07/18 15:29 Polyethylene Glycol (Miralax) 17 gm DAILYPRN PRN ORAL Constipation 05/08/18 15:30 06/07/18 15:29 Potassium Chloride (K-Dur) 20 meq TWICE A DAY ORAL 05/09/18 09:00 06/08/18 08:59 05/15/18 09:00 Vancomycin HCl (Vanco rx to dose) 1 ea DAILY PRN MISC PER RX PROTOCOL 05/10/18 11:30 06/09/18 11:29 Vancomycin HCl/ Dextrose 250 ml @ 166.667 mls/hr Q24H IVPB 05/14/18 22:00 05/19/18 21:59 05/14/18 22:31 Allergies: Coded Allergies: No Known Allergies (Unverified , 06/15/12) ROS Limited/Unobtainable: No Constitutional: Reports: no symptoms HEENT: Reports: no symptoms Cardiovascular: Reports: no symptoms Respiratory: Reports: no symptoms Gastrointestinal/Abdominal: Reports: no symptoms Genitourinary: Reports: no symptoms Neurologic/Psychiatric: Reports: no symptoms Subjective 82 YO M admitted with right leg pain. Now cellulitis right leg. Cover for Int Jaswinder-Dr Faria Objective Last Vital Signs Date Time Temp Pulse Resp B/P (MAP) Pulse Ox O2 Delivery O2 Flow Rate FiO2 05/15/18 12:00 97.8 80 18 145/70 (95) 99 97.8 05/15/18 09:00 Room Air 05/13/18 21:23 21 Laboratory Tests Test 05/14/18 20:20 05/15/18 05:50 Vancomycin Level Trough 9.9 ug/mL (5.0-12.0) White Blood Count 6.7 K/UL (4.8-10.8) Red Blood Count 4.55 M/UL (4.70-6.10) L Hemoglobin 11.2 G/DL (14.2-18.0) L Hematocrit 35.3 % (42.0-52.0) L Mean Corpuscular Volume 78 FL (80-99) L Mean Corpuscular Hemoglobin 24.6 PG (27.0-31.0) L Mean Corpuscular Hemoglobin Concent 31.7 G/DL (32.0-36.0) L Red Cell Distribution Width 15.0 % (11.6-14.8) H Platelet Count 272 K/UL (150-450) Mean Platelet Volume 7.6 FL (6.5-10.1) Neutrophils (%) (Auto) 52.1 % (45.0-75.0) Lymphocytes (%) (Auto) 24.1 % (20.0-45.0) Monocytes (%) (Auto) 13.2 % (1.0-10.0) H Eosinophils (%) (Auto) 9.5 % (0.0-3.0) H Basophils (%) (Auto) 1.2 % (0.0-2.0) Sodium Level 141 MMOL/L (136-145) Potassium Level 4.6 MMOL/L (3.5-5.1) Chloride Level 107 MMOL/L (98-107) Carbon Dioxide Level 27 MMOL/L (21-32) Anion Gap 7 mmol/L (5-15) Blood Urea Nitrogen 13 mg/dL (7-18) Creatinine 1.0 MG/DL (0.55-1.30) Estimat Glomerular Filtration Rate mL/min (>60) Glucose Level 84 MG/DL (74-106) Calcium Level 9.2 MG/DL (8.5-10.1) Phosphorus Level 2.8 MG/DL (2.5-4.9) Magnesium Level 1.9 MG/DL (1.8-2.4) Total Bilirubin 0.4 MG/DL (0.2-1.0) Aspartate Amino Transf (AST/SGOT) 64 U/L (15-37) H Alanine Aminotransferase (ALT/SGPT) 56 U/L (12-78) Alkaline Phosphatase 91 U/L (46-116) Total Protein 7.8 G/DL (6.4-8.2) Albumin 2.8 G/DL (3.4-5.0) L Globulin 5.0 g/dL Albumin/Globulin Ratio 0.6 (1.0-2.7) L Intake and Output 05/14/18 05/15/18 19:00 07:00 Intake Total 760 ml 250.000 ml Balance 760 ml 250.000 ml Intake Oral 760 ml IV Total 250.000 ml # Voids 3 3 Objective General Appearance: WD/WN, no apparent distress, alert EENT: PERRL/EOMI, normal ENT inspection Neck: non-tender, normal alignment, supple, normal inspection Cardiovascular: normal peripheral pulses, normal rate, regular rhythm, no gallop/murmur, no JVD Respiratory/Chest: chest wall non-tender, lungs clear, normal breath sounds, no respiratory distress, no accessory muscle use Abdomen: normal bowel sounds, non tender, soft, no organomegaly, no mass Extremities: normal range of motion, non-tender Edema: trace edema 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 continue vanco D #6/. (2) Pain in right leg (3) Leukocytosis Assessment & Plan: Resolved (4) HTN (hypertension) Assessment & Plan: Continue amlodipine (5) Hypothyroidism Assessment & Plan: continue levoxyl Status: stable Chicho Ring MD May 15, 2018 17:04
--- NOTE | 2018-05-15 23:44 | General Progress Note ---
Assessment/Plan Assessment/Plan DD Encephalopathy due to [facility] [place] [facility] [facility]oril provided ro/st Subjective Date patient seen: May 15, 2018 Neurologic/Psychiatric: Reports: anxiety, depressed, emotional problems Allergies: Coded Allergies: No Known Allergies (Unverified , 06/15/12) Subjective min verbal Objective Last 24 Hour Vital Signs Date Time Temp Pulse Resp B/P (MAP) Pulse Ox O2 Delivery O2 Flow Rate FiO2 05/15/18 16:00 97.1 93 18 160/80 (106) 98 97.1 05/15/18 12:00 97.8 80 18 145/70 (95) 99 97.8 05/15/18 09:00 98.9 81 18 123/67 (85) 100 98.9 05/15/18 09:00 81 123/67 05/15/18 09:00 Room Air 05/15/18 04:00 97.3 82 14 130/66 (87) 99 97.3 05/15/18 00:00 97.3 82 15 117/77 (90) 100 97.3 Intake and Output 05/14/18 05/15/18 19:00 07:00 Intake Total 760 ml 250.000 ml Balance 760 ml 250.000 ml Intake Oral 760 ml IV Total 250.000 ml # Voids 3 3 Laboratory Tests 05/15/18 05:50: White Blood Count 6.7, Red Blood Count 4.55L, Hemoglobin 11.2L, Hematocrit 35.3L , Mean Corpuscular Volume 78L, Mean Corpuscular Hemoglobin 24.6L, Mean Corpuscular Hemoglobin Concent 31.7L, Red Cell Distribution Width 15.0H, Platelet Count 272, Mean Platelet Volume 7.6, Neutrophils (%) (Auto) 52.1, Lymphocytes (%) (Auto) 24.1, Monocytes (%) (Auto) 13.2H, Eosinophils (%) (Auto) 9.5H, Basophils (%) (Auto) 1.2, Sodium Level 141, Potassium Level 4.6, Chloride Level 107, Carbon Dioxide Level 27, Anion Gap 7, Blood Urea Nitrogen 13, Creatinine 1.0, Estimat Glomerular Filtration Rate , Glucose Level 84, Calcium Level 9.2, Phosphorus Level 2.8, Magnesium Level 1.9, Total Bilirubin 0.4, Aspartate Amino Transf (AST/SGOT) 64H, Alanine Aminotransferase (ALT/SGPT) 56, Alkaline Phosphatase 91, Total Protein 7.8, Albumin 2.8L, Globulin 5.0, Albumin/ Globulin Ratio 0.6L Height (Feet): 5 Height (Inches): 4.00 Weight (Pounds): 160 Loulou Gutierrez MD May 15, 2018 23:44
--- NOTE | 2018-05-16 17:01 | Discharge Summary ---
Discharge Summary Discharge Summary _ DATE OF ADMISSION: 05/08/2018 DATE OF DISCHARGE: 05/15/2018 CONSULTANTS: Dr. Yolanda Herrera BRIEF HOSPITAL COURSE: Patient is an 82-year-old white male, who presented to ED with chief complaint of right leg pain and redness. Patient is developmentally delayed. History was obtained from patient's caregiver. Patient started to experience right lower extremity pain for the last couple of days. It has become increasingly red. He has history of hypertension and hypothyroidism. On evaluation at ED, vital signs were stable, he was noted to have cellulitis on the right leg. WBC was elevated to 25. He was pancultured. He was admitted for cellulitis and probable sepsis. He was started empirically on vancomycin and cefepime. Infectious disease specialist was consulted. Cefepime was discontinued. He was continued on levothyroxine. He was placed on Norvasc for blood pressure control. BNP was elevated. Initial chest x-ray with CHF. Echocardiogram showed EF 60%. There was no respiratory distress. He was given breathing treatment prn. Embossing Calender Operator was consulted. He was ordered wound care. No surgical intervention was needed. Foot MRI without definite evidence of osteomyelitis. Ankle MRI showed considerable soft tissue edema. There was no definite focal drainable abscess collection. Foot x-ray with no definite acute process. He was diagnosed with encephalopathy due to general medical condition. He was given Remeron and Restoril. Blood culture did not isolate any growth. Urine culture with growth of enterococcus. Patient had asymptomatic bacteriuria. Leukocytosis resolved. He was eventually cleared for discharge back to board and care to continue po course of Augmentin 500 mg twice a day until 05/16/2018. FINAL DIAGNOSES: Right lower extremity cellulitis Probable sepsis Probable dehydration/prerenal failure Asymptomatic bacteriuria Hypertension Hypothyroidism COPD Developmental delay Onycholysis, right hallux toenail Chronic edema Encephalopathy due to general medical condition Acute on chronic diastolic congestive heart failure DISPOSITION: Patient was discharged back to board and care. DISCHARGE MEDICATIONS: Refer to Discharge Medication List. Continue by mouth Augmentin as outpatient. I have been assigned to dictate discharge summary on this account, and I was not involved in the patient's management. Sil Musa NP May 16, 2018 17:01
== END 2018-05-15 18:53 | disposition home or self-care (01) | DRG 720 ==
LOC: EMR 12:20 → 4E 14:37 → EDBEDREQ 14:52
DX: A41.9 Sepsis, unspecified organism (principal); G93.40 Encephalopathy, unspecified; I50.33 Acute on chronic diastolic (congestive) heart failure; L03.115 Cellulitis of right lower limb; I11.0 Hypertensive heart disease with heart failure; E86.0 Dehydration; F79 Unspecified intellectual disabilities; E03.9 Hypothyroidism, unspecified; L60.1 Onycholysis; R60.9 Edema, unspecified; R47.01 Aphasia; E66.9 Obesity, unspecified; J44.9 Chronic obstructive pulmonary disease, unspecified
CPT/HCPCS: 36415; 71045; 80048; 80053; 80202; 81001; 82550; 83605; 83735; 83880; 84100; 84133; 84300; 84443; 84484; 84550; 85007; 85025; 85610; 85730; 87040; 87081; 87086; 87181; 89050; 93306; 94664; 99285; J8499

== ENCOUNTER 2018-12-20 18:20 | Inpatient (IN) | payer MEDICARE, MEDICAID ==
[~2018-12-20] VITALS: Ht 172.7 cm; Wt 81.6 kg
[~2018-12-20 18:20] MED LIST changes: +AUGMENTIN 500-1 EACH ORAL
[2018-12-20] MEDS ORDERED: cefTRIAXone 2 GM in NS 55 ML IVPB ONE (18:45)
--- NOTE | 2018-12-20 18:59 | Emergency Room Report ---
History of Present Illness General Chief Complaint: Skin Rash/Abscess Source: Medical Record, Caregiver Present Illness HPI Patient is an 83-year-old male brought in by caregiver after increased right lower extremity discoloration and rash. Patient had onset of symptoms this morning. He was noted to have multiple areas to his right lower extremity which were noted to be red in color. Patient not noted to be on any anticoagulation or having any fever. He reportedly had been eating less. Patient was noted to be nonverbal. Allergies: Coded Allergies: No Known Allergies (Unverified , 06/15/12) Patient History Past Medical History: see triage record Reviewed Nursing Documentation: PMH: Agreed; PSxH: Agreed Nursing Documentation-PMH Past Medical History: No History, Except For Hx Cardiac Problems: No Hx Hypertension: Yes Hx Cancer: No Hx Gastrointestinal Problems: No Hx Neurological Problems: Yes - developmental delay Hx Memory Loss: Yes Hx Concentration Difficulty: Yes Hx Speech Problem: Yes Hx Aphasia: Yes Hx Weakness: Yes Review of Systems All Other Systems: negative except mentioned in HPI Physical Exam Vital Signs Date Time Temp Pulse Resp B/P (MAP) Pulse Ox O2 Delivery O2 Flow Rate FiO2 12/20/18 18:33 100.8 104 18 148/81 94 Room Air Sp02 EP Interpretation: reviewed, normal General Appearance: alert, Chronically Ill Head: atraumatic Eyes: bilateral eye other ENT: normal ENT inspection, other - nonverbal Neck: normal inspection, full range of motion, supple, no bony tend Respiratory: normal inspection, lungs clear, normal breath sounds, no respiratory distress, no retraction, no wheezing Cardiovascular #1: regular rate, rhythm, edema Gastrointestinal: normal inspection, normal bowel sounds, non tender, soft, no guarding, no hernia Genitourinary: no CVA tenderness Musculoskeletal: normal inspection, back normal, decreased range of motion Neurologic: normal inspection, alert, responsive, motor weakness Psychiatric: normal inspection, mood/affect normal Skin: other - right lower extremity palpable nonblanching rash, moderate edema bilaterall, slight rash to left lower extremity Medical Decision Making Diagnostic Impression: Primary Impression: Sepsis Additional Impressions: Vasculitis COPD (chronic obstructive pulmonary disease) ER Course Patient presented for right lower extremity swelling and rash. Differential diagnosis include was not limited to sepsis, vasculitis, endocarditis, coagulopathy, aortic aneurysm, among others. Because of complexity of patient' s case laboratory testing and imaging studies were ordered.Patient was noted to have by baseline nonverbal mental status. He was noted to have market edema associated with palpable red discoloration to the right lower extremity. This is not appear to be traumatic. Labs Test 12/20/18 18:40 12/20/18 18:54 12/20/18 19:33 12/20/18 20:40 White Blood Count 19.0 K/UL (4.8-10.8) Red Blood Count 4.74 M/UL (4.70-6.10) Hemoglobin 12.7 G/DL (14.2-18.0) Hematocrit 38.9 % (42.0-52.0) Mean Corpuscular Volume 82 FL (80-99) Mean Corpuscular Hemoglobin 26.7 PG (27.0-31.0) Mean Corpuscular Hemoglobin Concent 32.5 G/DL (32.0-36.0) Red Cell Distribution Width 14.3 % (11.6-14.8) Platelet Count 196 K/UL (150-450) Mean Platelet Volume 7.2 FL (6.5-10.1) Neutrophils (%) (Auto) % (45.0-75.0) Lymphocytes (%) (Auto) % (20.0-45.0) Monocytes (%) (Auto) % (1.0-10.0) Eosinophils (%) (Auto) % (0.0-3.0) Basophils (%) (Auto) % (0.0-2.0) Differential Total Cells Counted 100 Neutrophils % (Manual) 90 % (45-75) Lymphocytes % (Manual) 2 % (20-45) Monocytes % (Manual) 5 % (1-10) Eosinophils % (Manual) 0 % (0-3) Basophils % (Manual) 0 % (0-2) Band Neutrophils 3 % (0-8) Platelet Estimate Adequate Platelet Morphology Normal Polychromasia 1+ Anisocytosis 1+ Erythrocyte Sedimentation Rate 63 MM/HR (0-20) Prothrombin Time 12.0 SEC (9.30-11.50) Prothromb Time International Ratio 1.1 (0.9-1.1) Activated Partial Thromboplast Time 32 SEC (23-33) Sodium Level 136 MMOL/L (136-145) Potassium Level 4.0 MMOL/L (3.5-5.1) Chloride Level 101 MMOL/L (98-107) Carbon Dioxide Level 26 MMOL/L (21-32) Anion Gap 9 mmol/L (5-15) Blood Urea Nitrogen 19 mg/dL (7-18) Creatinine 1.7 MG/DL (0.55-1.30) Estimat Glomerular Filtration Rate mL/min (>60) Glucose Level 152 MG/DL (74-106) Calcium Level 9.1 MG/DL (8.5-10.1) Total Bilirubin 0.4 MG/DL (0.2-1.0) Aspartate Amino Transf (AST/SGOT) 29 U/L (15-37) Alanine Aminotransferase (ALT/SGPT) 22 U/L (12-78) Alkaline Phosphatase 104 U/L (46-116) Total Creatine Kinase 179 U/L (26-308) Creatine Kinase MB 1.0 NG/ML (0.0-3.6) Creatine Kinase MB Relative Index 0.5 Troponin I 0.000 ng/mL (0.000-0.056) Pro-B-Type Natriuretic Peptide 961 pg/mL (0-125) Total Protein 8.3 G/DL (6.4-8.2) Albumin 3.1 G/DL (3.4-5.0) Globulin 5.2 g/dL Albumin/Globulin Ratio 0.6 (1.0-2.7) Arterial Blood pH 7.472 (7.350-7.450) Arterial Blood Partial Pressure CO2 32.5 mmHg (35.0-45.0) Arterial Blood Partial Pressure O2 74.7 mmHg (75.0-100.0) Arterial Blood HCO3 23.2 mmol/L (22.0-26.0) Arterial Blood Oxygen Saturation 95.5 % (95-100) Arterial Blood Base Excess 0.2 (-2-2) Vitor Test Positive Urine Color Yellow Urine Appearance Clear Urine pH 6 (4.5-8.0) Urine Specific [place] 1.010 (1.005-1.035) Urine Protein 2+ (NEGATIVE) Urine Glucose (UA) Negative (NEGATIVE) Urine Ketones Negative (NEGATIVE) Urine Blood 1+ (NEGATIVE) Urine Nitrite Negative (NEGATIVE) Urine Bilirubin Negative (NEGATIVE) Urine Urobilinogen Normal MG/DL (0.0-1.0) Urine Leukocyte Esterase Negative (NEGATIVE) Urine RBC 2-4 /HPF (0 - 0) Urine WBC 0 /HPF (0 - 0) Urine Squamous Epithelial Cells Occasional /LPF Urine Bacteria Few /HPF (NONE) Lactic Acid Level 1.60 mmol/L (0.66-2.22) EKG Diagnostic Results Rate: normal - 95 Rhythm: NSR ST Segments: other - nonspecific ST changes. Last Vital Signs Date Time Temp Pulse Resp B/P (MAP) Pulse Ox O2 Delivery O2 Flow Rate FiO2 12/20/18 18:33 100.8 104 18 148/81 94 Room Air Status: improved Disposition: HOME, SELF-CARE Condition: Stable Erasto Alegre MD Dec 20, 2018 18:59
--- NOTE | 2018-12-20 19:08 | Diagnostic Imaging Report ---
EXAM: XR Chest, 1 View CLINICAL HISTORY: SOB TECHNIQUE: Frontal view of the chest. COMPARISON: May 13, 2018 chest x-ray FINDINGS: Lungs: Pulmonary vascular congestion similar to prior. Pleural space: Small bilateral pleural effusions. No pneumothorax. Heart: Similar cardiomegaly. Mediastinum: Unremarkable. Bones/joints: Unremarkable. Vasculature: Aortic tortuosity and prominence of the pulmonary arterial shadows, similar to prior. IMPRESSION: Similar findings compatible with mild CHF.
--- NOTE | 2018-12-20 19:15 | NUR ---
ED Nurse Note: [facility] customer care specialist at bedside, pt is is nonverbal. per certified registered locksmith pt has swelling of the right leg. leg is edematous +1 with pink spots that are unblanchable. no other symptoms present.
[2018-12-20 19:22] LABS: HEMATOCRIT 38.9 % (42.0-52.0); HEMOGLOBIN 12.7 G/DL (14.2-18.0); MEAN CORPUSCULAR VOLUME 82 FL (80-99); PLATELET COUNT 196 K/UL (150-450); RED BLOOD COUNT 4.74 M/UL (4.70-6.10); RED CELL DISTRIBUTION WIDTH 14.3 % (11.6-14.8)
[2018-12-20] MEDS ORDERED: Vancomycin 1.5gm Premix 275 ML IVPB SCH (19:30)
--- NOTE | 2018-12-20 19:30 | NUR ---
ED Nurse Note: per ermd, no need to insert simons cath just utilize in and out cath.
[2018-12-20 19:32] LABS: INR 1.1 (0.9-1.1)
[2018-12-20 19:35] LABS: ANION GAP 9 mmol/L (5-15); BLOOD UREA NITROGEN 19 mg/dL (7-18); CALCIUM 9.1 MG/DL (8.5-10.1); CARBON DIOXIDE 26 MMOL/L (21-32); CHLORIDE 101 MMOL/L (98-107); CREATININE 1.7 MG/DL (0.55-1.30); SODIUM 136 MMOL/L (136-145)
[2018-12-20] MEDS ORDERED: Vancomycin 1.5gm/D5W 275ml IVPB ONE ×2 (19:45)
[2018-12-20 19:49] LABS: ALANINE AMINOTRANSFERASE 22 U/L (12-78); ALBUMIN 3.1 G/DL (3.4-5.0); ALBUMIN/GLOBULIN RATIO 0.6 (1.0-2.7); ALKALINE PHOSPHATASE 104 U/L (46-116); ASPARTATE AMINO TRANSFERASE 29 U/L (15-37); BILIRUBIN,TOTAL 0.4 MG/DL (0.2-1.0); CREATINE KINASE 179 U/L (26-308)
[2018-12-20 19:57] VITALS: BP 134/59
[2018-12-20 20:13] LABS: APPEARANCE,URINE CLEAR; BILIRUBIN, URINE NEGATIVE (NEGATIVE); GLUCOSE, URINE (UA) NEGATIVE (NEGATIVE); KETONES,URINE NEGATIVE (NEGATIVE); LEUKOCYTE ESTERASE ,URINE NEGATIVE (NEGATIVE); NITRITE,URINE NEGATIVE (NEGATIVE); PH,URINE 6 (4.5-8.0); PROTEIN,URINE 2+ (NEGATIVE); UROBILINOGEN,URINE NORMAL MG/DL (0.0-1.0)
--- NOTE | 2018-12-20 20:13 | NUR ---
ED Nurse Note: Bibiana (liturgical music director) - [phone]
[2018-12-20 20:15] LABS: COLOR,URINE YELLOW
[2018-12-20] MEDS ORDERED: Morphine Sulfate 2mg/ml Inj(IV/IM USE ONLY) IVP PRN (20:30)
[2018-12-20] MEDS ORDERED: Nitroglycerin Subl 0.4mg tab SL PRN (20:30)
[2018-12-20] MEDS ORDERED: Albuterol/Ipratropium 3ml neb HHN PRN (20:30)
[2018-12-20] MEDS ORDERED: Miralax 17gm pkt ORAL PRN (20:30)
[2018-12-20 20:40] VITALS: BP 116/45
--- NOTE | 2018-12-20 21:14 | NUR ---
ED Nurse TELEPHONE REPORT GIVEN TO EVON SHIPLEY
--- NOTE | 2018-12-20 21:30 | NUR ---
NURSE NOTES: received pt from ER in stable condition, pt alert but nonverbal no acute distress, belongings list checked, verified, and signed. safety precaution in place, will continue to monitor
--- NOTE | 2018-12-20 21:30 | NUR ---
ED Nurse Note: pt transported with ángel garcia and ángel mari. pt was on a security monitor. all belonigns have been sent with pt. pt urinated and was cleaned prior to tranport. pt shows no signs of distress. pt skin intact. pt is on 2 Lnasal cannula. and non verbal. assistant professor of psychology aware of new room placement
[2018-12-20] MEDS: Heparin 5000 units/ml inj SUBQ SCH (22:11)
[2018-12-20 22:48] VITALS: BP 134/68
[2018-12-20] MEDS ORDERED: Cefepime HCl 2 GM in D5W 110 ML IV SCH (23:00)
--- NOTE | 2018-12-21 | NUR ---
pt in bed sleeping. no acute distress noted. will continue to monitor.
[2018-12-21] MEDS ORDERED: Vancomycin 1 GM in D5W 275 ML IV SCH (00:30)
[2018-12-21 01:47] LABS: APPEARANCE,URINE CLEAR; BILIRUBIN, URINE NEGATIVE (NEGATIVE); COLOR,URINE PALE YELLOW; GLUCOSE, URINE (UA) NEGATIVE (NEGATIVE); KETONES,URINE NEGATIVE (NEGATIVE); LEUKOCYTE ESTERASE ,URINE 2+ (NEGATIVE); NITRITE,URINE NEGATIVE (NEGATIVE); PH,URINE 7 (4.5-8.0); PROTEIN,URINE 1+ (NEGATIVE); UROBILINOGEN,URINE NORMAL MG/DL (0.0-1.0)
[2018-12-21 04:00] VITALS: BP 102/59
--- NOTE | 2018-12-21 06:43 | NUR ---
NURSE NOTES: pt reminds in stable condition. no change in condition. all needs met during my shift. will endorse pt to incoming nurse.
--- NOTE | 2018-12-21 07:25 | NUR ---
HAND-OFF: Report given to EVON Rushing.
--- NOTE | 2018-12-21 07:26 | NUR ---
NURSE NOTES: Received report from EVON Sorensen. Pt is resting in the bed, non verbal. Venous duplex is getting done at bed side. Breathing unlabored in room air. Bed in lowest position with 2 side rails up, breaks are engaged. Call light , and side table are within reach. Bed alarm on. Will continue to monitor.
[2018-12-21 08:00] VITALS: BP 109/58
--- NOTE | 2018-12-21 08:06 | Consultation ---
History of Present Illness General Date patient seen: Dec 21, 2018 Chief Complaint: Skin Rash/Abscess Reason for Consultation: Right lower ext erythema Present Illness HPI Mr. Barajas is an 83 yo male with PMHx of Mental Retardation, Aphasia, CHF, HTN, Recurrent RLU Cellulitis who was brought to the ED for right lower ext discoloration/rash. The patient is not verbal so the history was obtained from the chart. He was reported as not having fevers and has been eating less. In the ED he was aferbile with WBCs of 19. CXR show no sign of PNA. UA (-). ID consulted for ID was consulted for cellulitis PMHx/PSHx Mental Retardation Aphasia CHF HTN Recurrent RLU Cellulitis SocHx Unable to obtain FamHx Unable to obtain Allergies: Coded Allergies: No Known Allergies (Unverified , 06/15/12) Medication History Scheduled Amlodipine Besylate* (Amlodipine Besylate*), 2.5 MG ORAL DAILY, (Reported) Aspirin* (Aspir 81*), 81 MG ORAL DAILY, (Reported) Furosemide* (Lasix*), 40 MG ORAL TWICE A DAY, (Reported) Levothyroxine Sodium* (Levothyroxine Sodium*), 75 MCG ORAL DAILY, (Reported) Potassium Chloride* (K-Dur*), 20 MEQ ORAL TWICE A DAY, (Reported) Discontinued Medications Amoxicillin/Potassium Clav 500-125 Tablet* (Augmentin 500-125 Tablet*), 1 TAB ORAL BID, (Reported) Discontinued Reason: Therapy completed Patient History Healthcare decision maker Resuscitation status Full Code Advanced Directive on File No Review of Systems ROS Narrative Unable to obtain due to not verbal status Physical Exam Last 24 Hour Vital Signs Date Time Temp Pulse Resp B/P (MAP) Pulse Ox O2 Delivery O2 Flow Rate FiO2 12/21/18 07:30 Nasal Cannula 2.0 28 12/21/18 07:30 100 Nasal Cannula 2.0 28 12/21/18 07:30 72 18 Room Air 12/21/18 04:00 72 12/21/18 04:00 99.1 73 20 102/59 (73) 97 12/21/18 00:00 69 12/20/18 22:49 Nasal Cannula 2.0 12/20/18 22:48 99.0 92 19 134/68 (90) 98 12/20/18 21:54 98.3 95 17 117/45 100 Nasal Cannula 2.0 12/20/18 20:40 98.3 90 16 116/45 98 Nasal Cannula 2.0 12/20/18 19:57 98.3 87 17 134/59 100 Nasal Cannula 2.0 12/20/18 18:54 100 Nasal Cannula 2.0 28 12/20/18 18:54 Nasal Cannula 2.0 28 12/20/18 18:33 100.8 104 18 148/81 94 Room Air Intake and Output 12/20/18 12/21/18 18:59 06:59 Intake Total 1155 ml Output Total 3 ml Balance 1152 ml Intake IV Total 1155 ml Output Urine Total 3 ml # Voids 1 # Bowel Movements 1 Laboratory Tests Test 12/20/18 18:40 12/20/18 18:54 12/20/18 19:33 12/20/18 19:36 White Blood Count 19.0 K/UL (4.8-10.8) H Red Blood Count 4.74 M/UL (4.70-6.10) Hemoglobin 12.7 G/DL (14.2-18.0) L Hematocrit 38.9 % (42.0-52.0) L Mean Corpuscular Volume 82 FL (80-99) Mean Corpuscular Hemoglobin 26.7 PG (27.0-31.0) L Mean Corpuscular Hemoglobin Concent 32.5 G/DL (32.0-36.0) Red Cell Distribution Width 14.3 % (11.6-14.8) Platelet Count 196 K/UL (150-450) Mean Platelet Volume 7.2 FL (6.5-10.1) Neutrophils (%) (Auto) % (45.0-75.0) Lymphocytes (%) (Auto) % (20.0-45.0) Monocytes (%) (Auto) % (1.0-10.0) Eosinophils (%) (Auto) % (0.0-3.0) Basophils (%) (Auto) % (0.0-2.0) Differential Total Cells Counted 100 Neutrophils % (Manual) 90 % (45-75) H Lymphocytes % (Manual) 2 % (20-45) L Monocytes % (Manual) 5 % (1-10) Eosinophils % (Manual) 0 % (0-3) Basophils % (Manual) 0 % (0-2) Band Neutrophils 3 % (0-8) Platelet Estimate Adequate Platelet Morphology Normal Polychromasia 1+ Anisocytosis 1+ Erythrocyte Sedimentation Rate 63 MM/HR (0-20) H Prothrombin Time 12.0 SEC (9.30-11.50) H Prothromb Time International Ratio 1.1 (0.9-1.1) Activated Partial Thromboplast Time 32 SEC (23-33) Sodium Level 136 MMOL/L (136-145) Potassium Level 4.0 MMOL/L (3.5-5.1) Chloride Level 101 MMOL/L (98-107) Carbon Dioxide Level 26 MMOL/L (21-32) Anion Gap 9 mmol/L (5-15) Blood Urea Nitrogen 19 mg/dL (7-18) H Creatinine 1.7 MG/DL (0.55-1.30) H Estimat Glomerular Filtration Rate mL/min (>60) Glucose Level 152 MG/DL (74-106) H Calcium Level 9.1 MG/DL (8.5-10.1) Total Bilirubin 0.4 MG/DL (0.2-1.0) Aspartate Amino Transf (AST/SGOT) 29 U/L (15-37) Alanine Aminotransferase (ALT/SGPT) 22 U/L (12-78) Alkaline Phosphatase 104 U/L (46-116) Total Creatine Kinase 179 U/L (26-308) Creatine Kinase MB 1.0 NG/ML (0.0-3.6) Creatine Kinase MB Relative Index 0.5 Troponin I 0.000 ng/mL (0.000-0.056) Pro-B-Type Natriuretic Peptide 961 pg/mL (0-125) H Total Protein 8.3 G/DL (6.4-8.2) H Albumin 3.1 G/DL (3.4-5.0) L Globulin 5.2 g/dL Albumin/Globulin Ratio 0.6 (1.0-2.7) L Arterial Blood pH 7.472 (7.350-7.450) Arterial Blood Partial Pressure CO2 32.5 mmHg (35.0-45.0) L Arterial Blood Partial Pressure O2 74.7 mmHg (75.0-100.0) L Arterial Blood HCO3 23.2 mmol/L (22.0-26.0) Arterial Blood Oxygen Saturation 95.5 % (95-100) Arterial Blood Base Excess 0.2 (-2-2) Vitor Test Positive Urine Color Yellow Urine Appearance Clear Urine pH 6 (4.5-8.0) Urine Specific [place] 1.010 (1.005-1.035) Urine Protein 2+ (NEGATIVE) H Urine Glucose (UA) Negative (NEGATIVE) Urine Ketones Negative (NEGATIVE) Urine Blood 1+ (NEGATIVE) H Urine Nitrite Negative (NEGATIVE) Urine Bilirubin Negative (NEGATIVE) Urine Urobilinogen Normal MG/DL (0.0-1.0) Urine Leukocyte Esterase Negative (NEGATIVE) Urine RBC 2-4 /HPF (0 - 0) H Urine WBC 0 /HPF (0 - 0) Urine Squamous Epithelial Cells Occasional /LPF Urine Bacteria Few /HPF (NONE) Lactic Acid Level 2.40 mmol/L (0.4-2.0) H Test 12/20/18 20:40 12/21/18 01:30 12/21/18 07:55 Lactic Acid Level 1.60 mmol/L (0.66-2.22) Pending Urine Color Pale yellow Urine Appearance Clear Urine pH 7 (4.5-8.0) Urine Specific [place] 1.005 (1.005-1.035) Urine Protein 1+ (NEGATIVE) H Urine Glucose (UA) Negative (NEGATIVE) Urine Ketones Negative (NEGATIVE) Urine Blood 1+ (NEGATIVE) H Urine Nitrite Negative (NEGATIVE) Urine Bilirubin Negative (NEGATIVE) Urine Urobilinogen Normal MG/DL (0.0-1.0) Urine Leukocyte Esterase 2+ (NEGATIVE) H Urine RBC 0-2 /HPF (0 - 0) H Urine WBC 5-10 /HPF (0 - 0) H Urine Squamous Epithelial Cells Few /LPF (NONE/OCC) Urine Bacteria Occasional /HPF (NONE) Urine Eosinophils None seen (NONE SEEN) Urine Random Creatinine Pending Urine Random Microalbumin Pending Urine Random Sodium 70 mmol/L (20-110) Urine Creatinine 62.7 MG/DL (30.0-125.0) Urine Microalbumin/Creatinine Ratio Pending Urine Potassium Timed 53 mmol/L (12-62) White Blood Count Pending Red Blood Count Pending Hemoglobin Pending Hematocrit Pending Mean Corpuscular Volume Pending Mean Corpuscular Hemoglobin Pending Mean Corpuscular Hemoglobin Concent Pending Red Cell Distribution Width Pending Platelet Count Pending Mean Platelet Volume Pending Neutrophils (%) (Auto) Pending Lymphocytes (%) (Auto) Pending Monocytes (%) (Auto) Pending Eosinophils (%) (Auto) Pending Basophils (%) (Auto) Pending Sodium Level Pending Potassium Level Pending Chloride Level Pending Carbon Dioxide Level Pending Blood Urea Nitrogen Pending Creatinine Pending Estimat Glomerular Filtration Rate Pending Glucose Level Pending Uric Acid Pending Calcium Level Pending Total Bilirubin Pending Aspartate Amino Transf (AST/SGOT) Pending Alanine Aminotransferase (ALT/SGPT) Pending Alkaline Phosphatase Pending Total Creatine Kinase Pending Total Protein Pending Albumin Pending Globulin Pending Height (Feet): 5 Height (Inches): 8.00 Weight (Pounds): 180 Medications Current Medications Medications (Trade) Dose Ordered Sig/Brian Route PRN Reason Start Time Stop Time Status Last Admin Dose Admin Acetaminophen (Tylenol) 650 mg Q4H PRN ORAL fever 12/20/18 20:30 01/19/19 20:29 Albuterol/ Ipratropium (Albuterol/ Ipratropium) 3 ml Q4H PRN HHN Shortness of Breath 12/20/18 20:30 12/25/18 20:29 Amlodipine Besylate (Norvasc) 2.5 mg DAILY ORAL 12/21/18 09:00 01/20/19 08:59 Cefepime HCl 2 gm/ Dextrose 110 ml @ 220 mls/hr Q24H IV 12/20/18 23:00 12/27/18 22:59 12/20/18 22:11 Dextrose (Dextrose 50%) 25 ml Q30M PRN IV Hypoglycemia 12/20/18 20:30 01/19/19 20:29 Dextrose (Dextrose 50%) 50 ml Q30M PRN IV Hypoglycemia 12/20/18 20:30 01/19/19 20:29 Heparin Sodium (Porcine) (Heparin 5000 units/ml) 5,000 units EVERY 12 HOURS SUBQ 12/20/18 21:00 01/19/19 20:59 12/20/18 22:11 Levothyroxine Sodium (Synthroid) 75 mcg ACBREAKFAST ORAL 12/21/18 06:30 01/20/19 06:29 12/21/18 05:48 Morphine Sulfate (Morphine Sulfate) 2 mg Q4H PRN IVP Moderate Pain (Pain Scale 4-6) 12/20/18 20:30 12/27/18 20:29 Nitroglycerin (Ntg) 0.4 mg Q5M PRN SL Prn Chest Pain 12/20/18 20:30 01/19/19 20:29 Ondansetron HCl (Zofran) 4 mg Q6H PRN IVP Nausea & Vomiting 12/20/18 20:30 01/19/19 20:29 Polyethylene Glycol (Miralax) 17 gm DAILYPRN PRN ORAL Constipation 12/20/18 20:30 01/19/19 20:29 Temazepam (Restoril) 15 mg HSPRN PRN ORAL Insomnia 12/20/18 20:30 12/27/18 20:29 Vancomycin HCl (Vanco rx to dose) 1 ea DAILY PRN MISC Per rx protocol 12/20/18 21:45 01/19/19 21:44 Objective Narrative Gen: NAD, HEENT: NCAT, MMM, EOMI, PERRL, No Oral lesion, no scleral icterus NECK: full range of motion, supple, no meningismus, No LAD, No JVD LUNGS: CTAB, No W/C, No Accessory muscle use CARDS: RRR, S1, S2, No M/R/G, ABD: Soft, NT, ND, No R/G, + BS, No HSM, No Masses : Deferred Ext: C/C/E, Pulses 2+ B/L (DP, Rad): NEURO: A/O x 0, Strength and Sensation Grossly intact SKIN: Warm/dry, right lower ext erythema with some rash Assessment/Plan Assessment/Plan 83 yo male with PMHx of Mental Retardation, Aphasia, CHF, HTN, Recurrent RLU Cellulitis who was brought to the ED for right lower ext discoloration/rash. B/L Erythema - Most likely cellultitis Hx of Cellulitis Aferbile WBCs of 19 intially UA (-) CXR Mild CHF Mental Retardation Aphasia CHF HTN PLAN - Continue Vancomycin #1 - 12/21/18 S/P Cefepime - Monitor rash - Monitor CBC and Temps Thank you for this consult. We will continue to follow the patient during this hospitalization. Paulo Herrera MD Dec 21, 2018 08:06
[2018-12-21 08:07] LABS: BASOPHILS % (AUTO) 0.3 % (0.0-2.0); EOSINOPHILS % (AUTO) 0.1 % (0.0-3.0); HEMATOCRIT 34.6 % (42.0-52.0); LYMPHOCYTES % (AUTO) 5.2 % (20.0-45.0); MEAN CORPUSCULAR VOLUME 83 FL (80-99); MONOCYTES % (AUTO) 10.7 % (1.0-10.0); NEUTROPHILS % (AUTO) 83.7 % (45.0-75.0); PLATELET COUNT 169 K/UL (150-450); RED BLOOD COUNT 4.18 M/UL (4.70-6.10); RED CELL DISTRIBUTION WIDTH 14.8 % (11.6-14.8); WHITE BLOOD COUNT 12.3 K/UL (4.8-10.8)
[2018-12-21] MEDS: Heparin 5000 units/ml inj SUBQ SCH ×2 (08:58→20:36)
[2018-12-21 09:02] LABS: ALANINE AMINOTRANSFERASE 20 U/L (12-78); ALBUMIN 2.5 G/DL (3.4-5.0); ALBUMIN/GLOBULIN RATIO 0.6 (1.0-2.7); ALKALINE PHOSPHATASE 88 U/L (46-116); ANION GAP 8 mmol/L (5-15); ASPARTATE AMINO TRANSFERASE 31 U/L (15-37); BILIRUBIN,TOTAL 0.2 MG/DL (0.2-1.0); BLOOD UREA NITROGEN 19 mg/dL (7-18); CALCIUM 8.4 MG/DL (8.5-10.1); CARBON DIOXIDE 26 MMOL/L (21-32); CHLORIDE 105 MMOL/L (98-107); CREATININE 1.4 MG/DL (0.55-1.30); POTASSIUM 3.8 MMOL/L (3.5-5.1); SODIUM 139 MMOL/L (136-145)
[2018-12-21 09:04] LABS: CREATINE KINASE 182 U/L (26-308)
[2018-12-21 12:00] VITALS: BP 87/42
[2018-12-21 12:35] VITALS: BP 104/50
--- NOTE | 2018-12-21 12:44 | NUR ---
CASE MANAGEMENT: REVIEW 83/M BIBA FROM HOME CC: RIGHT LEG SWELLING AND REDNESS SI: VASCULITIS . COPD . SEPSIS T 100.8 HR 104 RR 18 BP 148/81 SAT 94% NC/2L WBC 19.0 LACTIC ACID 2.40 ABG: PH 7.472 PCO2 32.5 PO2 74.7 IS: VANCO IV X1 NS IVF BOLUS X1 FLAGYL IV X1 CEFTRIAXONE IV X1 PATIENT ADMITTED TO TELEMETRY UNIT 12/20/2018 DCP: PATIENT IS FROM HOME
[2018-12-21 16:00] VITALS: BP 111/50
--- NOTE | 2018-12-21 16:59 | Consultation ---
History of Present Illness General Date patient seen: Dec 21, 2018 Chief Complaint: Skin Rash/Abscess Reason for Consultation: Right lower ext erythema Present Illness HPI 83-year-old male, with hx of COPD, mentally challenged, brought in by caregiver because of right lower extremity discoloration and rash since this morning. He has multiple areas to his right lower extremity which were noted to be red in color. He is admitted for sepsis and cellulitis. Allergies: Coded Allergies: No Known Allergies (Unverified , 06/15/12) Medication History Scheduled Amlodipine Besylate* (Amlodipine Besylate*), 2.5 MG ORAL DAILY, (Reported) Aspirin* (Aspir 81*), 81 MG ORAL DAILY, (Reported) Furosemide* (Lasix*), 40 MG ORAL TWICE A DAY, (Reported) Levothyroxine Sodium* (Levothyroxine Sodium*), 75 MCG ORAL DAILY, (Reported) Potassium Chloride* (K-Dur*), 20 MEQ ORAL TWICE A DAY, (Reported) Discontinued Medications Amoxicillin/Potassium Clav 500-125 Tablet* (Augmentin 500-125 Tablet*), 1 TAB ORAL BID, (Reported) Discontinued Reason: Therapy completed Patient History Healthcare decision maker Resuscitation status Full Code Advanced Directive on File No Past Medical/Surgical History Past Medical/Surgical History: (1) COPD (chronic obstructive pulmonary disease) (2) Developmental delay (3) HTN (hypertension) (4) Hypothyroidism Review of Systems All Other Systems: negative except mentioned in HPI Physical Exam General Appearance: WD/WN, no apparent distress Lines, tubes and drains: peripheral HEENT: normocephalic, atraumatic Neck: non-tender, normal alignment Respiratory/Chest: chest wall non-tender, lungs clear Cardiovascular/Chest: normal peripheral pulses, normal rate Abdomen: normal bowel sounds, non tender Extremities: normal range of motion Skin Exam: normal pigmentation Last 24 Hour Vital Signs Date Time Temp Pulse Resp B/P (MAP) Pulse Ox O2 Delivery O2 Flow Rate FiO2 12/21/18 12:35 104/50 (68) 12/21/18 12:00 98.1 63 20 87/42 (57) 97 12/21/18 09:00 Room Air 12/21/18 08:56 68 109/58 12/21/18 08:00 97.8 68 18 109/58 (75) 97 12/21/18 08:00 66 12/21/18 07:30 Nasal Cannula 2.0 28 12/21/18 07:30 100 Nasal Cannula 2.0 28 12/21/18 07:30 72 18 Room Air 12/21/18 04:00 72 12/21/18 04:00 99.1 73 20 102/59 (73) 97 12/21/18 00:00 69 12/20/18 22:49 Nasal Cannula 2.0 12/20/18 22:48 99.0 92 19 134/68 (90) 98 12/20/18 21:54 98.3 95 17 117/45 100 Nasal Cannula 2.0 12/20/18 20:40 98.3 90 16 116/45 98 Nasal Cannula 2.0 12/20/18 19:57 98.3 87 17 134/59 100 Nasal Cannula 2.0 12/20/18 18:54 100 Nasal Cannula 2.0 28 12/20/18 18:54 Nasal Cannula 2.0 28 12/20/18 18:33 100.8 104 18 148/81 94 Room Air Intake and Output 12/20/18 12/21/18 19:00 07:00 Intake Total 1155 ml Output Total 3 ml Balance 1152 ml Intake IV Total 1155 ml Output Urine Total 3 ml # Voids 1 # Bowel Movements 1 Laboratory Tests Test 12/20/18 18:40 12/20/18 18:54 12/20/18 19:33 12/20/18 19:36 White Blood Count 19.0 K/UL (4.8-10.8) H Red Blood Count 4.74 M/UL (4.70-6.10) Hemoglobin 12.7 G/DL (14.2-18.0) L Hematocrit 38.9 % (42.0-52.0) L Mean Corpuscular Volume 82 FL (80-99) Mean Corpuscular Hemoglobin 26.7 PG (27.0-31.0) L Mean Corpuscular Hemoglobin Concent 32.5 G/DL (32.0-36.0) Red Cell Distribution Width 14.3 % (11.6-14.8) Platelet Count 196 K/UL (150-450) Mean Platelet Volume 7.2 FL (6.5-10.1) Neutrophils (%) (Auto) % (45.0-75.0) Lymphocytes (%) (Auto) % (20.0-45.0) Monocytes (%) (Auto) % (1.0-10.0) Eosinophils (%) (Auto) % (0.0-3.0) Basophils (%) (Auto) % (0.0-2.0) Differential Total Cells Counted 100 Neutrophils % (Manual) 90 % (45-75) H Lymphocytes % (Manual) 2 % (20-45) L Monocytes % (Manual) 5 % (1-10) Eosinophils % (Manual) 0 % (0-3) Basophils % (Manual) 0 % (0-2) Band Neutrophils 3 % (0-8) Platelet Estimate Adequate Platelet Morphology Normal Polychromasia 1+ Anisocytosis 1+ Erythrocyte Sedimentation Rate 63 MM/HR (0-20) H Prothrombin Time 12.0 SEC (9.30-11.50) H Prothromb Time International Ratio 1.1 (0.9-1.1) Activated Partial Thromboplast Time 32 SEC (23-33) Sodium Level 136 MMOL/L (136-145) Potassium Level 4.0 MMOL/L (3.5-5.1) Chloride Level 101 MMOL/L (98-107) Carbon Dioxide Level 26 MMOL/L (21-32) Anion Gap 9 mmol/L (5-15) Blood Urea Nitrogen 19 mg/dL (7-18) H Creatinine 1.7 MG/DL (0.55-1.30) H Estimat Glomerular Filtration Rate mL/min (>60) Glucose Level 152 MG/DL (74-106) H Calcium Level 9.1 MG/DL (8.5-10.1) Total Bilirubin 0.4 MG/DL (0.2-1.0) Aspartate Amino Transf (AST/SGOT) 29 U/L (15-37) Alanine Aminotransferase (ALT/SGPT) 22 U/L (12-78) Alkaline Phosphatase 104 U/L (46-116) Total Creatine Kinase 179 U/L (26-308) Creatine Kinase MB 1.0 NG/ML (0.0-3.6) Creatine Kinase MB Relative Index 0.5 Troponin I 0.000 ng/mL (0.000-0.056) Pro-B-Type Natriuretic Peptide 961 pg/mL (0-125) H Total Protein 8.3 G/DL (6.4-8.2) H Albumin 3.1 G/DL (3.4-5.0) L Globulin 5.2 g/dL Albumin/Globulin Ratio 0.6 (1.0-2.7) L Arterial Blood pH 7.472 (7.350-7.450) Arterial Blood Partial Pressure CO2 32.5 mmHg (35.0-45.0) L Arterial Blood Partial Pressure O2 74.7 mmHg (75.0-100.0) L Arterial Blood HCO3 23.2 mmol/L (22.0-26.0) Arterial Blood Oxygen Saturation 95.5 % (95-100) Arterial Blood Base Excess 0.2 (-2-2) Vitor Test Positive Urine Color Yellow Urine Appearance Clear Urine pH 6 (4.5-8.0) Urine Specific [place] 1.010 (1.005-1.035) Urine Protein 2+ (NEGATIVE) H Urine Glucose (UA) Negative (NEGATIVE) Urine Ketones Negative (NEGATIVE) Urine Blood 1+ (NEGATIVE) H Urine Nitrite Negative (NEGATIVE) Urine Bilirubin Negative (NEGATIVE) Urine Urobilinogen Normal MG/DL (0.0-1.0) Urine Leukocyte Esterase Negative (NEGATIVE) Urine RBC 2-4 /HPF (0 - 0) H Urine WBC 0 /HPF (0 - 0) Urine Squamous Epithelial Cells Occasional /LPF Urine Bacteria Few /HPF (NONE) Lactic Acid Level 2.40 mmol/L (0.4-2.0) H Test 12/20/18 20:40 12/21/18 01:30 12/21/18 07:55 Lactic Acid Level 1.60 mmol/L (0.66-2.22) 1.00 mmol/L (0.4-2.0) Urine Color Pale yellow Urine Appearance Clear Urine pH 7 (4.5-8.0) Urine Specific [place] 1.005 (1.005-1.035) Urine Protein 1+ (NEGATIVE) H Urine Glucose (UA) Negative (NEGATIVE) Urine Ketones Negative (NEGATIVE) Urine Blood 1+ (NEGATIVE) H Urine Nitrite Negative (NEGATIVE) Urine Bilirubin Negative (NEGATIVE) Urine Urobilinogen Normal MG/DL (0.0-1.0) Urine Leukocyte Esterase 2+ (NEGATIVE) H Urine RBC 0-2 /HPF (0 - 0) H Urine WBC 5-10 /HPF (0 - 0) H Urine Squamous Epithelial Cells Few /LPF (NONE/OCC) Urine Bacteria Occasional /HPF (NONE) Urine Eosinophils None seen (NONE SEEN) Urine Random Creatinine Pending Urine Random Microalbumin Pending Urine Random Sodium 70 mmol/L (20-110) Urine Creatinine 62.7 MG/DL (30.0-125.0) Urine Microalbumin/Creatinine Ratio Pending Urine Potassium Timed 53 mmol/L (12-62) White Blood Count 12.3 K/UL (4.8-10.8) H Red Blood Count 4.18 M/UL (4.70-6.10) L Hemoglobin 11.0 G/DL (14.2-18.0) L Hematocrit 34.6 % (42.0-52.0) L Mean Corpuscular Volume 83 FL (80-99) Mean Corpuscular Hemoglobin 26.3 PG (27.0-31.0) L Mean Corpuscular Hemoglobin Concent 31.7 G/DL (32.0-36.0) L Red Cell Distribution Width 14.8 % (11.6-14.8) Platelet Count 169 K/UL (150-450) Mean Platelet Volume 8.3 FL (6.5-10.1) Neutrophils (%) (Auto) 83.7 % (45.0-75.0) H Lymphocytes (%) (Auto) 5.2 % (20.0-45.0) L Monocytes (%) (Auto) 10.7 % (1.0-10.0) H Eosinophils (%) (Auto) 0.1 % (0.0-3.0) Basophils (%) (Auto) 0.3 % (0.0-2.0) Sodium Level 139 MMOL/L (136-145) Potassium Level 3.8 MMOL/L (3.5-5.1) Chloride Level 105 MMOL/L (98-107) Carbon Dioxide Level 26 MMOL/L (21-32) Anion Gap 8 mmol/L (5-15) Blood Urea Nitrogen 19 mg/dL (7-18) H Creatinine 1.4 MG/DL (0.55-1.30) H Estimat Glomerular Filtration Rate mL/min (>60) Glucose Level 94 MG/DL (74-106) Uric Acid 5.7 MG/DL (2.6-7.2) Calcium Level 8.4 MG/DL (8.5-10.1) L Total Bilirubin 0.2 MG/DL (0.2-1.0) Aspartate Amino Transf (AST/SGOT) 31 U/L (15-37) Alanine Aminotransferase (ALT/SGPT) 20 U/L (12-78) Alkaline Phosphatase 88 U/L (46-116) Total Creatine Kinase 182 U/L (26-308) Total Protein 6.9 G/DL (6.4-8.2) Albumin 2.5 G/DL (3.4-5.0) L Globulin 4.4 g/dL Albumin/Globulin Ratio 0.6 (1.0-2.7) L Microbiology Date/Time Source Procedure Growth Status 12/20/18 19:33 Rectum Received Height (Feet): 5 Height (Inches): 8.00 Weight (Pounds): 180 Medications Current Medications Medications (Trade) Dose Ordered Sig/Brian Route PRN Reason Start Time Stop Time Status Last Admin Dose Admin Acetaminophen (Tylenol) 650 mg Q4H PRN ORAL fever 12/20/18 20:30 01/19/19 20:29 Albuterol/ Ipratropium (Albuterol/ Ipratropium) 3 ml Q4H PRN HHN Shortness of Breath 12/20/18 20:30 12/25/18 20:29 Amlodipine Besylate (Norvasc) 2.5 mg DAILY ORAL 12/21/18 09:00 01/20/19 08:59 12/21/18 08:56 Dextrose (Dextrose 50%) 25 ml Q30M PRN IV Hypoglycemia 12/20/18 20:30 01/19/19 20:29 Dextrose (Dextrose 50%) 50 ml Q30M PRN IV Hypoglycemia 12/20/18 20:30 01/19/19 20:29 Heparin Sodium (Porcine) (Heparin 5000 units/ml) 5,000 units EVERY 12 HOURS SUBQ 12/21/18 21:00 01/20/19 20:59 Levothyroxine Sodium (Synthroid) 75 mcg ACBREAKFAST ORAL 12/21/18 06:30 01/20/19 06:29 12/21/18 05:48 Morphine Sulfate (Morphine Sulfate) 2 mg Q4H PRN IVP Moderate Pain (Pain Scale 4-6) 12/20/18 20:30 4/19/19 20:29 Nitroglycerin (Ntg) 0.4 mg Q5M PRN SL Prn Chest Pain 12/20/18 20:30 01/19/19 20:29 Ondansetron HCl (Zofran) 4 mg Q6H PRN IVP Nausea & Vomiting 12/20/18 20:30 01/19/19 20:29 Polyethylene Glycol (Miralax) 17 gm DAILYPRN PRN ORAL Constipation 12/20/18 20:30 01/19/19 20:29 Temazepam (Restoril) 15 mg HSPRN PRN ORAL Insomnia 12/20/18 20:30 12/27/18 20:29 Vancomycin HCl (Vanco rx to dose) 1 ea DAILY PRN MISC Per rx protocol 12/20/18 21:45 01/19/19 21:44 Assessment/Plan Problem List: (1) Cellulitis of leg, right ICD Codes: L03.115 - Cellulitis of right lower limb SNOMED: 820250440 (2) Sepsis ICD Codes: A41.9 - Sepsis, unspecified organism SNOMED: 62726060 (3) COPD (chronic obstructive pulmonary disease) ICD Codes: J44.9 - Chronic obstructive pulmonary disease, unspecified SNOMED: 02294245 (4) Hypothyroidism ICD Codes: E03.9 - Hypothyroidism, unspecified SNOMED: 98866979 (5) Developmental delay ICD Codes: R62.50 - Unspecified lack of expected normal physiological development in childhood SNOMED: 611095253 (6) HTN (hypertension) ICD Codes: I10 - Essential (primary) hypertension SNOMED: 02448270 Assessment/Plan camara culture IV abx check TSH, continue oral feeding dvt prophylaxis Yolanda Lazcano MD Dec 21, 2018 16:59
--- NOTE | 2018-12-21 18:51 | Cardiology Progress Note ---
Subjective Subjective [id number] Objective Last 24 Hour Vital Signs Date Time Temp Pulse Resp B/P (MAP) Pulse Ox O2 Delivery O2 Flow Rate FiO2 12/21/18 16:00 73 12/21/18 16:00 98.6 75 20 111/50 (70) 97 12/21/18 12:35 104/50 (68) 12/21/18 12:00 63 12/21/18 12:00 98.1 63 20 87/42 (57) 97 12/21/18 09:00 Room Air 12/21/18 08:56 68 109/58 12/21/18 08:00 97.8 68 18 109/58 (75) 97 12/21/18 08:00 66 12/21/18 07:30 Nasal Cannula 2.0 28 12/21/18 07:30 100 Nasal Cannula 2.0 28 12/21/18 07:30 72 18 Room Air 12/21/18 04:00 72 12/21/18 04:00 99.1 73 20 102/59 (73) 97 12/21/18 00:00 69 12/20/18 22:49 Nasal Cannula 2.0 12/20/18 22:48 99.0 92 19 134/68 (90) 98 12/20/18 21:54 98.3 95 17 117/45 100 Nasal Cannula 2.0 12/20/18 20:40 98.3 90 16 116/45 98 Nasal Cannula 2.0 12/20/18 19:57 98.3 87 17 134/59 100 Nasal Cannula 2.0 12/20/18 18:54 100 Nasal Cannula 2.0 28 12/20/18 18:54 Nasal Cannula 2.0 28 Intake and Output 12/20/18 12/21/18 19:00 07:00 Intake Total 1155 ml Output Total 3 ml Balance 1152 ml IV Total 1155 ml Output Urine Total 3 ml # Voids 1 # Bowel Movements 1 Laboratory Tests Test 12/20/18 18:54 12/20/18 19:33 12/20/18 19:36 12/20/18 20:40 Arterial Blood pH 7.472 (7.350-7.450) Arterial Blood Partial Pressure CO2 32.5 mmHg (35.0-45.0) L Arterial Blood Partial Pressure O2 74.7 mmHg (75.0-100.0) L Arterial Blood HCO3 23.2 mmol/L (22.0-26.0) Arterial Blood Oxygen Saturation 95.5 % (95-100) Arterial Blood Base Excess 0.2 (-2-2) Vitor Test Positive Urine Color Yellow Urine Appearance Clear Urine pH 6 (4.5-8.0) Urine Specific [place] 1.010 (1.005-1.035) Urine Protein 2+ (NEGATIVE) H Urine Glucose (UA) Negative (NEGATIVE) Urine Ketones Negative (NEGATIVE) Urine Blood 1+ (NEGATIVE) H Urine Nitrite Negative (NEGATIVE) Urine Bilirubin Negative (NEGATIVE) Urine Urobilinogen Normal MG/DL (0.0-1.0) Urine Leukocyte Esterase Negative (NEGATIVE) Urine RBC 2-4 /HPF (0 - 0) H Urine WBC 0 /HPF (0 - 0) Urine Squamous Epithelial Cells Occasional /LPF Urine Bacteria Few /HPF (NONE) Lactic Acid Level 2.40 mmol/L (0.4-2.0) H 1.60 mmol/L (0.66-2.22) Test 12/21/18 01:30 12/21/18 07:55 Urine Color Pale yellow Urine Appearance Clear Urine pH 7 (4.5-8.0) Urine Specific [place] 1.005 (1.005-1.035) Urine Protein 1+ (NEGATIVE) H Urine Glucose (UA) Negative (NEGATIVE) Urine Ketones Negative (NEGATIVE) Urine Blood 1+ (NEGATIVE) H Urine Nitrite Negative (NEGATIVE) Urine Bilirubin Negative (NEGATIVE) Urine Urobilinogen Normal MG/DL (0.0-1.0) Urine Leukocyte Esterase 2+ (NEGATIVE) H Urine RBC 0-2 /HPF (0 - 0) H Urine WBC 5-10 /HPF (0 - 0) H Urine Squamous Epithelial Cells Few /LPF (NONE/OCC) Urine Bacteria Occasional /HPF (NONE) Urine Eosinophils None seen (NONE SEEN) Urine Random Creatinine Pending Urine Random Microalbumin Pending Urine Random Sodium 70 mmol/L (20-110) Urine Creatinine 62.7 MG/DL (30.0-125.0) Urine Microalbumin/Creatinine Ratio Pending Urine Potassium Timed 53 mmol/L (12-62) White Blood Count 12.3 K/UL (4.8-10.8) H Red Blood Count 4.18 M/UL (4.70-6.10) L Hemoglobin 11.0 G/DL (14.2-18.0) L Hematocrit 34.6 % (42.0-52.0) L Mean Corpuscular Volume 83 FL (80-99) Mean Corpuscular Hemoglobin 26.3 PG (27.0-31.0) L Mean Corpuscular Hemoglobin Concent 31.7 G/DL (32.0-36.0) L Red Cell Distribution Width 14.8 % (11.6-14.8) Platelet Count 169 K/UL (150-450) Mean Platelet Volume 8.3 FL (6.5-10.1) Neutrophils (%) (Auto) 83.7 % (45.0-75.0) H Lymphocytes (%) (Auto) 5.2 % (20.0-45.0) L Monocytes (%) (Auto) 10.7 % (1.0-10.0) H Eosinophils (%) (Auto) 0.1 % (0.0-3.0) Basophils (%) (Auto) 0.3 % (0.0-2.0) Sodium Level 139 MMOL/L (136-145) Potassium Level 3.8 MMOL/L (3.5-5.1) Chloride Level 105 MMOL/L (98-107) Carbon Dioxide Level 26 MMOL/L (21-32) Anion Gap 8 mmol/L (5-15) Blood Urea Nitrogen 19 mg/dL (7-18) H Creatinine 1.4 MG/DL (0.55-1.30) H Estimat Glomerular Filtration Rate mL/min (>60) Glucose Level 94 MG/DL (74-106) Lactic Acid Level 1.00 mmol/L (0.4-2.0) Uric Acid 5.7 MG/DL (2.6-7.2) Calcium Level 8.4 MG/DL (8.5-10.1) L Total Bilirubin 0.2 MG/DL (0.2-1.0) Aspartate Amino Transf (AST/SGOT) 31 U/L (15-37) Alanine Aminotransferase (ALT/SGPT) 20 U/L (12-78) Alkaline Phosphatase 88 U/L (46-116) Total Creatine Kinase 182 U/L (26-308) Total Protein 6.9 G/DL (6.4-8.2) Albumin 2.5 G/DL (3.4-5.0) L Globulin 4.4 g/dL Albumin/Globulin Ratio 0.6 (1.0-2.7) L Microbiology Date/Time Source Procedure Growth Status 12/20/18 19:33 Rectum Received Mylene Ray MD Dec 21, 2018 18:51
--- NOTE | 2018-12-21 19:15 | History and Physical Report ---
DATE OF ADMISSION: 12/20/2018 CHIEF COMPLAINT: Right lower extremity redness and swollen. HISTORY OF PRESENT ILLNESS: This is an 83-year-old gentleman with past medical history significant for mental retardation, aphasia, congestive heart failure, hypertension, and recurrent right lower extremity cellulitis, who has presented to the emergency room after was noted to have the right lower extremity discoloration, redness, and swollen. The patient's baseline is nonverbal, aphasic, and mostly history is taken from the old chart as well as the ER records. No fever was reported and he has been eating good. No loss of consciousness. Shortly after initial evaluation in the emergency, the patient was noted a WBC of 19 and subsequently, the patient was admitted to the hospital with acute cellulitis of the lower extremity, recurrent. PAST MEDICAL HISTORY/PAST SURGICAL HISTORY: As above. 1. History of recurrent right lower extremity cellulitis. 2. Mental retardation. 3. Aphasia. 4. Congestive heart failure. 5. Hypertension. 6. History of hypothyroidism. MEDICATIONS AT HOME: Please refer to medication reconciliation. Significant for Norvasc 2.5 mg b.i.d., aspirin 81 mg daily, Lasix 40 mg twice a day, levothyroxine 75 mcg daily, and potassium chloride 20 mEq twice a day. ALLERGIES: No known drug allergies. SOCIAL HISTORY: No smoking, alcohol, or drugs. FAMILY HISTORY: Noncontributory. REVIEW OF SYSTEMS: Unable to obtain secondary to the patient's status. The patient is aphasic and was not noted. PHYSICAL EXAMINATION: VITAL SIGNS: Temperature 97.8, pulse of 68, respirations 18, and blood pressure 109/58. GENERAL: The patient is awake and responsive to painful stimuli with opening his eyes, however, cannot follow commands. HEAD AND NECK: Pupils are reactive to light. Extraocular movements intact. Neck was supple. No JVD. LUNGS: Good air entry. No wheezing or rhonchi. Poor inspiratory effort. HEART: S1, S2. Distant heart sounds. Normal gallops. ABDOMEN: Soft, nondistended, and nontender. Morbidly obese. EXTREMITIES: No cyanosis or clubbing. Right lower extremity +2 edema and erythema was noted. Left lower extremities, no edema was identified. No rashes or erythema. NEUROLOGIC: Very limited secondary to the patient's status. However, the patient is moving extremities spontaneously. The patient is aphasic. Cannot follow commands. LABORATORY DATA: On admission from the ER, WBC of 19, hemoglobin of 12, hematocrit 38, and platelets is 196,000. Neutrophil percentage is 90. ESR is 63. The patient's lactic acid is 2.40. Sodium 136, potassium 4.0, chloride 101, bicarb 26, BUN 19, and creatinine 1.7. Glucose is 152. Liver functions are essentially unremarkable with alkaline phosphate 104. ProBNP of 961. Total protein is 8.3. Albumin is 3.0. PT of 12, INR 1.0, and PTT of 32. Urinalysis is +2 protein, +1 blood, and 2 to 4 rbc's. The patient's chest x-ray compatible with mild congestive heart failure. ASSESSMENT: 1. Recurrent right lower extremity cellulitis. 2. Sepsis secondary to cellulitis of right lower extremity. 3. Morbid obesity. 4. Congestive heart failure, acute on chronic. 5. Mental retardation. 6. Aphasia. 7. Hypertension. 8. Hypothyroidism. PLAN: 1. Admit the patient to monitored unit. 2. We will follow up laboratory. 3. The patient has been seen by Infectious Disease consultation, Dr. Paulo Herrera. Broad-spectrum antibiotics with vancomycin was started. 4. We will monitor renal function. 5. Code status is Full Code. 6. DVT prophylaxis with heparin subcutaneous. 7. We will follow up with the duplex of lower extremity. 8. Pulmonary Critical Care consultation with Dr. Lazcano. Librado Faria M.D. DR: SAIMA JOB#: [id number] CC:
--- NOTE | 2018-12-21 19:23 | NUR ---
HAND-OFF: Report given to EVON Crowder.
--- NOTE | 2018-12-21 19:24 | NUR ---
NURSE NOTES: Got report from Coty BARNARD. Pt in stable condition. No s/s of distress or discomfort noted. Pt resting in bed comfortably. Bed in low and locked position, call light within reach, bedside table within reach. Continue to monitor.
[2018-12-21 20:00] VITALS: BP 109/62
[2018-12-22] VITALS: BP 110/55
[2018-12-22 04:20] VITALS: BP 135/66
--- NOTE | 2018-12-22 07:15 | NUR ---
HAND-OFF: Report given to Jhon BARNARD. Endorsed plan of care.
[2018-12-22 08:00] VITALS: BP 128/80
--- NOTE | 2018-12-22 08:02 | NUR ---
NURSE NOTES: pt awake alert, no distress. bed in lowest position, locked. call light within reach. will monitor. Dr Herrera made aware of gram positive cocci in clusters in 1 bottle blood cx, no new order per md.
[2018-12-22] MEDS: Heparin 5000 units/ml inj SUBQ SCH ×2 (08:17→20:59)
[2018-12-22] MEDS: Vancomycin 1.25gm Premix IVPB SCH (09:56)
[2018-12-22 12:00] VITALS: BP 139/75
--- NOTE | 2018-12-22 13:57 | Cardiology Progress Note ---
Assessment/Plan Assessment/Plan no evidence of CHF decompensation his BP is stable, will monitor, restart amlodipine if BP goes up improving from infections standpoint Subjective Subjective the patient is more alert today, but still non verbal Objective Last 24 Hour Vital Signs Date Time Temp Pulse Resp B/P (MAP) Pulse Ox O2 Delivery O2 Flow Rate FiO2 12/22/18 12:00 98.3 75 18 139/75 (96) 95 12/22/18 11:48 73 12/22/18 08:00 Room Air 12/22/18 08:00 98.3 76 18 128/80 (96) 95 12/22/18 07:50 73 12/22/18 04:20 76 12/22/18 04:20 98.2 76 18 135/66 (89) 95 12/22/18 00:07 76 12/22/18 00:00 99.0 80 20 110/55 (73) 95 12/21/18 21:00 Room Air 12/21/18 20:00 76 12/21/18 20:00 97.6 83 18 109/62 (78) 95 12/21/18 16:00 73 12/21/18 16:00 98.6 75 20 111/50 (70) 97 General Appearance: alert EENT: PERRL/EOMI Neck: no JVD Rhythm: NSR Cardiovascular: normal rate Respiratory/Chest: crackles/rales - at bases only Abdomen: soft Extremities: other - right leg erythema improved Intake and Output 12/21/18 12/22/18 18:59 06:59 Intake Total 240 ml Output Total 600 ml 500 ml Balance -360 ml -500 ml Intake Oral 240 ml Output Urine Total 600 ml 500 ml # Bowel Movements 2 2 Laboratory Tests Test 12/22/18 04:45 Random Vancomycin Level 3.2 ug/mL Microbiology Date/Time Source Procedure Growth Status 12/20/18 18:55 Blood Blood Culture - Preliminary NO GROWTH AFTER 24 HOURS Resulted 12/20/18 18:40 Blood Blood Culture - Preliminary Resulted 12/20/18 19:33 Rectum Received Mylene Ray MD Dec 22, 2018 13:57
[2018-12-22 16:00] VITALS: BP 125/75
--- NOTE | 2018-12-22 19:13 | NUR ---
HAND-OFF: Report given to HENRIK BARNARD.
[2018-12-22 20:00] VITALS: BP 150/76
--- NOTE | 2018-12-22 22:17 | Internal Med Progress Note ---
Subjective Physician Name Librado Faria Attending Physician Librado Faria MD Current Medications Medications (Trade) Dose Ordered Sig/Brian Route PRN Reason Start Time Stop Time Status Last Admin Dose Admin Acetaminophen (Tylenol) 650 mg Q4H PRN ORAL fever 12/20/18 20:30 01/19/19 20:29 Albuterol/ Ipratropium (Albuterol/ Ipratropium) 3 ml Q4H PRN HHN Shortness of Breath 12/20/18 20:30 12/25/18 20:29 Dextrose (Dextrose 50%) 25 ml Q30M PRN IV Hypoglycemia 12/20/18 20:30 01/19/19 20:29 Dextrose (Dextrose 50%) 50 ml Q30M PRN IV Hypoglycemia 12/20/18 20:30 01/19/19 20:29 Heparin Sodium (Porcine) (Heparin 5000 units/ml) 5,000 units EVERY 12 HOURS SUBQ 12/21/18 21:00 01/20/19 20:59 12/22/18 20:59 Levothyroxine Sodium (Synthroid) 75 mcg ACBREAKFAST ORAL 12/21/18 06:30 01/20/19 06:29 12/21/18 05:48 Morphine Sulfate (Morphine Sulfate) 2 mg Q4H PRN IVP Moderate Pain (Pain Scale 4-6) 12/20/18 20:30 12/27/18 20:29 Nitroglycerin (Ntg) 0.4 mg Q5M PRN SL Prn Chest Pain 12/20/18 20:30 01/19/19 20:29 Ondansetron HCl (Zofran) 4 mg Q6H PRN IVP Nausea & Vomiting 12/20/18 20:30 01/19/19 20:29 Polyethylene Glycol (Miralax) 17 gm DAILYPRN PRN ORAL Constipation 12/20/18 20:30 01/19/19 20:29 Temazepam (Restoril) 15 mg HSPRN PRN ORAL Insomnia 12/20/18 20:30 12/27/18 20:29 Vancomycin HCl (Vanco rx to dose) 1 ea DAILY PRN MISC Per rx protocol 12/20/18 21:45 01/19/19 21:44 Vancomycin HCl/ Dextrose 275 ml @ 183.333 mls/hr Q24H IVPB 12/22/18 10:00 12/27/18 09:59 12/22/18 09:56 Allergies: Coded Allergies: No Known Allergies (Unverified , 06/15/12) Subjective awake, more responsive, open eyes, not verbal WBC: 12.3 reduced. Objective Last Vital Signs Date Time Temp Pulse Resp B/P (MAP) Pulse Ox O2 Delivery O2 Flow Rate FiO2 12/22/18 16:00 99.0 75 18 125/75 (92) 95 12/22/18 08:00 Room Air 12/22/18 07:00 21 12/21/18 07:30 2.0 Laboratory Tests Test 12/22/18 04:45 Random Vancomycin Level 3.2 ug/mL Microbiology Date/Time Source Procedure Growth Status 12/20/18 18:55 Blood Blood Culture - Preliminary NO GROWTH AFTER 24 HOURS Resulted 12/20/18 18:40 Blood Blood Culture - Preliminary Resulted 12/20/18 19:33 Rectum Received Intake and Output 12/21/18 12/22/18 19:00 07:00 Intake Total 240 ml Output Total 600 ml 500 ml Balance -360 ml -500 ml Intake Oral 240 ml Output Urine Total 600 ml 500 ml # Bowel Movements 2 2 Objective GENERAL: The patient is awake and responsive to painful stimuli with opening his eyes, however, cannot follow commands. HEAD AND NECK: Pupils are reactive to light. Extraocular movements intact. Neck was supple. No JVD. LUNGS: Good air entry. No wheezing or rhonchi. Poor inspiratory effort. HEART: S1, S2. Distant heart sounds. Normal gallops. ABDOMEN: Soft, nondistended, and nontender. Morbidly obese. EXTREMITIES: No cyanosis or clubbing. Right lower extremity +2 edema and less erythema was noted. Left lower extremities, no edema was identified. No rashes or erythema. NEUROLOGIC: Very limited secondary to the patient's status. However, the patient is moving extremities spontaneously. aphasic. Unable to follow commands. Assessment/Plan Assessment/Plan ASSESSMENT: 1. Recurrent right lower extremity cellulitis. 2. Sepsis secondary to cellulitis of right lower extremity. 3. Morbid obesity. 4. Congestive heart failure, acute on chronic. 5. Mental retardation. 6. Aphasia. 7. Hypertension. 8. Hypothyroidism. PLAN: 1. In monitored unit. 2. We will follow up laboratory and Cultures. 3. Infectious Disease consultation, Dr. Paulo Herrera. 4. Broad-spectrum antibiotics with vancomycin, 5. Code status is Full Code. 6. DVT prophylaxis with heparin subcutaneous. 7. Pulmonary Critical Care consultation with Dr. Lazcano. Damaris Benites Payam MD Dec 22, 2018 22:17
[2018-12-23] VITALS: BP 134/61
[2018-12-23 04:15] VITALS: BP 129/64
[2018-12-23 06:26] LABS: BASOPHILS % (AUTO) 0.6 % (0.0-2.0); EOSINOPHILS % (AUTO) 2.3 % (0.0-3.0); HEMATOCRIT 38.3 % (42.0-52.0); HEMOGLOBIN 12.2 G/DL (14.2-18.0); LYMPHOCYTES % (AUTO) 13.3 % (20.0-45.0); MEAN CORPUSCULAR VOLUME 83 FL (80-99); MONOCYTES % (AUTO) 12.6 % (1.0-10.0); NEUTROPHILS % (AUTO) 71.3 % (45.0-75.0); PLATELET COUNT 183 K/UL (150-450); RED BLOOD COUNT 4.64 M/UL (4.70-6.10); RED CELL DISTRIBUTION WIDTH 14.8 % (11.6-14.8)
[2018-12-23 06:34] LABS: ANION GAP 8 mmol/L (5-15); BLOOD UREA NITROGEN 17 mg/dL (7-18); CALCIUM 8.3 MG/DL (8.5-10.1); CARBON DIOXIDE 26 MMOL/L (21-32); CHLORIDE 109 MMOL/L (98-107); CREATININE 1.2 MG/DL (0.55-1.30); PHOSPHORUS 2.9 MG/DL (2.5-4.9); SODIUM 143 MMOL/L (136-145)
--- NOTE | 2018-12-23 07:15 | NUR ---
HAND-OFF: Report given to Catrina BARNARD. Endorsed plan of care.
--- NOTE | 2018-12-23 07:17 | NUR ---
CASE MANAGEMENT:REVIEW 12/22/18 SI: SEPSIS. RLE CELLULITIS METAL RETARDATION 98.3 76 18 128/80 95% ON RA NO LABS TODAY IS: IV VANCOMYCIN Q24 HEPARIN SQ Q12 SYNTHROID PO QAM : TELEMETRY STATUS DCP: FROM HOME 12/23/18 SI: SEPSIS. RLE CELLULITIS METAL RETARDATION 97.5 77 20 129/64 95% ON RA H/H-12.2/38.3 IS: IV VANCOMYCIN Q24 HEPARIN SQ Q12 SYNTHROID PO QAM : TELEMETRY STATUS DCP: FROM HOME
--- NOTE | 2018-12-23 07:42 | NUR ---
NURSE NOTES: Received report from EVON Crowder. Pt is laying in bed. No distress noted. Bed is in lowest position, side rails up X2, and call light is within reach. Will continue to monitor.
[2018-12-23 08:00] VITALS: BP 134/68
--- NOTE | 2018-12-23 08:42 | Infectious Diseases Prog Note ---
Assessment/Plan Assessment/Plan Gen: NAD, HEENT: NCAT, MMM, EOMI, PERRL, No Oral lesion, no scleral icterus NECK: full range of motion, supple, no meningismus, No LAD, No JVD LUNGS: CTAB, No W/C, No Accessory muscle use CARDS: RRR, S1, S2, No M/R/G, ABD: Soft, NT, ND, No R/G, + BS, No HSM, No Masses : Deferred Ext: C/C/E, Pulses 2+ B/L (DP, Rad): NEURO: A/O x 0, Strength and Sensation Grossly intact SKIN: Warm/dry, right lower ext erythema with some rash Assessment/Plan Assessment/Plan Assessment/Plan 83 yo male with PMHx of Mental Retardation, Aphasia, CHF, HTN, Recurrent RLU Cellulitis who was brought to the ED for right lower ext discoloration/rash. B/L Erythema - Most likely cellulitis Hx of Cellulitis Aferbile WBCs of 19 initially now resolved UA (-) CXR Mild CHF Blood Cx positive 12/20/18 CoNS - likely contaminant Mental Retardation Aphasia CHF HTN PLAN - Continue Vancomycin #3 On D/C could switch to keflex 500mg PO QID to complete one week of abx ( End date 12/27/18) - 12/21/18 S/P Cefepime - f/u repeat blood Cx - Monitor rash - Monitor CBC and Temps We will continue to follow the patient during this hospitalization. Subjective Allergies: Coded Allergies: No Known Allergies (Unverified , 06/15/12) Subjective Afebrile Leukocytosis resolved cellitis much improved still sigh significant edema Objective Vital Signs Last 24 Hour Vital Signs Date Time Temp Pulse Resp B/P (MAP) Pulse Ox O2 Delivery O2 Flow Rate FiO2 12/23/18 04:20 76 12/23/18 04:15 97.5 77 20 129/64 (85) 95 12/23/18 00:07 83 12/23/18 00:00 98.9 78 20 134/61 (85) 95 12/22/18 21:00 Room Air 12/22/18 20:00 77 12/22/18 20:00 98.6 78 18 150/76 (100) 98 12/22/18 16:00 99.0 75 18 125/75 (92) 95 12/22/18 15:21 67 12/22/18 12:00 98.3 75 18 139/75 (96) 95 12/22/18 11:48 73 Height (Feet): 5 Height (Inches): 8.00 Weight (Pounds): 180 Objective Gen: NAD, HEENT: NCAT, MMM, EOMI, PERRL, No Oral lesion, no scleral icterus NECK: full range of motion, supple, no meningismus, No LAD, No JVD LUNGS: CTAB, No W/C, No Accessory muscle use CARDS: RRR, S1, S2, No M/R/G, ABD: Soft, NT, ND, No R/G, + BS, No HSM, No Masses : Deferred NEURO: A/O x 0, Strength and Sensation Grossly intact SKIN: Warm/dry, right lower with edema and resolving rash Microbiology Date/Time Source Procedure Growth Status 12/20/18 18:55 Blood Blood Culture - Preliminary NO GROWTH AFTER 48 HOURS Resulted 12/20/18 18:40 Blood Blood Culture - Preliminary Staphylococcus Sp Coag Neg Resulted 12/20/18 19:33 Rectum Received Laboratory Tests Test 12/23/18 06:00 White Blood Count 7.0 K/UL (4.8-10.8) Red Blood Count 4.64 M/UL (4.70-6.10) L Hemoglobin 12.2 G/DL (14.2-18.0) L Hematocrit 38.3 % (42.0-52.0) L Mean Corpuscular Volume 83 FL (80-99) Mean Corpuscular Hemoglobin 26.3 PG (27.0-31.0) L Mean Corpuscular Hemoglobin Concent 31.8 G/DL (32.0-36.0) L Red Cell Distribution Width 14.8 % (11.6-14.8) Platelet Count 183 K/UL (150-450) Mean Platelet Volume 8.6 FL (6.5-10.1) Neutrophils (%) (Auto) 71.3 % (45.0-75.0) Lymphocytes (%) (Auto) 13.3 % (20.0-45.0) L Monocytes (%) (Auto) 12.6 % (1.0-10.0) H Eosinophils (%) (Auto) 2.3 % (0.0-3.0) Basophils (%) (Auto) 0.6 % (0.0-2.0) Sodium Level 143 MMOL/L (136-145) Potassium Level 4.0 MMOL/L (3.5-5.1) Chloride Level 109 MMOL/L (98-107) H Carbon Dioxide Level 26 MMOL/L (21-32) Anion Gap 8 mmol/L (5-15) Blood Urea Nitrogen 17 mg/dL (7-18) Creatinine 1.2 MG/DL (0.55-1.30) Estimat Glomerular Filtration Rate mL/min (>60) Glucose Level 93 MG/DL (74-106) Calcium Level 8.3 MG/DL (8.5-10.1) L Phosphorus Level 2.9 MG/DL (2.5-4.9) Magnesium Level 2.0 MG/DL (1.8-2.4) Current Medications Medications (Trade) Dose Ordered Sig/Brian Route PRN Reason Start Time Stop Time Status Last Admin Dose Admin Acetaminophen (Tylenol) 650 mg Q4H PRN ORAL fever 12/20/18 20:30 01/19/19 20:29 Albuterol/ Ipratropium (Albuterol/ Ipratropium) 3 ml Q4H PRN HHN Shortness of Breath 12/20/18 20:30 12/25/18 20:29 Dextrose (Dextrose 50%) 25 ml Q30M PRN IV Hypoglycemia 12/20/18 20:30 01/19/19 20:29 Dextrose (Dextrose 50%) 50 ml Q30M PRN IV Hypoglycemia 12/20/18 20:30 01/19/19 20:29 Heparin Sodium (Porcine) (Heparin 5000 units/ml) 5,000 units EVERY 12 HOURS SUBQ 12/21/18 21:00 01/20/19 20:59 12/22/18 20:59 Levothyroxine Sodium (Synthroid) 75 mcg ACBREAKFAST ORAL 12/21/18 06:30 01/20/19 06:29 12/23/18 06:07 Morphine Sulfate (Morphine Sulfate) 2 mg Q4H PRN IVP Moderate Pain (Pain Scale 4-6) 12/20/18 20:30 12/27/18 20:29 Nitroglycerin (Ntg) 0.4 mg Q5M PRN SL Prn Chest Pain 12/20/18 20:30 01/19/19 20:29 Ondansetron HCl (Zofran) 4 mg Q6H PRN IVP Nausea & Vomiting 12/20/18 20:30 01/19/19 20:29 Polyethylene Glycol (Miralax) 17 gm DAILYPRN PRN ORAL Constipation 12/20/18 20:30 01/19/19 20:29 Temazepam (Restoril) 15 mg HSPRN PRN ORAL Insomnia 12/20/18 20:30 12/27/18 20:29 Vancomycin HCl (Vanco rx to dose) 1 ea DAILY PRN MISC Per rx protocol 12/20/18 21:45 01/19/19 21:44 Vancomycin HCl/ Dextrose 275 ml @ 183.333 mls/hr Q24H IVPB 12/22/18 10:00 12/27/18 09:59 12/22/18 09:56 Paulo Herrera MD Dec 23, 2018 08:42
[2018-12-23] MEDS: Heparin 5000 units/ml inj SUBQ SCH ×2 (09:02→20:48)
[2018-12-23] MEDS: Vancomycin 1.25gm Premix IVPB SCH (10:37)
[2018-12-23 12:00] VITALS: BP 121/59
--- NOTE | 2018-12-23 12:07 | NUR ---
RD ASSESSMENT & RECOMMENDATIONS SEE CARE ACTIVITY FOR COMPLETE ASSESSMENT DAILY ESTIMATED NEEDS: Needs based on Cardiac 73kg adj 25-30 kcals/kg 6526-0081 total kcals 1-1.2 g protein/kg 73-88 g total protein 25-30 mL/kg 4418-9659 total fluid mLs NUTRITION DIAGNOSIS: 1) Decreased sodium needs r/t clinical status, cardiac history AEB pt w/adm w/ BL LE 2+ edema, h/o CHF and HTN. CURRENT DIET: Regular diet PO DIET RECOMMENDATIONS: LOW NA DIET (texture per [employer] [facility]) ADDITIONAL RECOMMENDATIONS: 1) [employer] [facility] eval for appropriate texture 2) Cont to monitor po intake / need for 1:1 3) Obtain a standing weight as able / calibrated bed scale 4) R LE eval/ cellulitis?
--- NOTE | 2018-12-23 12:30 | Consultation ---
DATE OF CONSULTATION: 12/21/2018 CARDIOLOGY CONSULTATION IDENTIFYING DATA: This is a 83-year-old male. REASON FOR ADMISSION: Cellulitis of the right leg. HISTORY OF PRESENT ILLNESS: Taken from discussion with admitting physician and reviewing the chart. The patient has mental retardation and he is unable to give any history. Apparently, the patient suffers from chronic congestive heart failure, diastolic. His last echocardiogram based on the records was done on May 11, 2018 and at that time it revealed normal left ventricular systolic function, normal right ventricular function, and systolic pressure of 33 mmHg. The patient was treated with diuretics and he usually he is taking based on the records. He also has history of hypertension. HOME MEDICATIONS: Include amlodipine, furosemide, aspirin, levothyroxine, and potassium. REVIEW OF SYSTEMS: Unobtainable as the patient is not verbal and not interacting. SOCIAL HISTORY: He is dependent. He lives at the custodial. There is no evidence of history of drug, substance abuse, or cigarette abuse. PHYSICAL EXAMINATION: GENERAL: This is an elderly man, resting in bed. He is not interactive, although he appears to be alert, does not seem to be in acute distress. VITAL SIGNS: Blood pressure is from 110/60 to 90/40, heart rate is 60, oxygen saturation is normal. Temperature is normal. HEENT: PERRLA. EOMI. NECK: Neck veins are not distended. LUNGS: He has scattered crackles bilaterally at bases. He is laying on the left side and no crackles on the left side. HEART: Regular with positive S4 and distant S1. ABDOMEN: Soft. No masses palpable. No obvious tenderness. Bowel sounds are present. EXTREMITIES: Lower extremities, his right leg covered with bright red erythematous patches including all space below the knee pretibially and extending to the foot and it is tender on palpation. There is a moderate swelling more on the right side. NEUROLOGICAL: To the degree evaluated, there is no lateralized neurologic deficit. LABORATORY AND DIAGNOSTIC DATA: His EKG shows sinus rhythm with left ventricular hypertrophy. His laboratories [place]. [place] [address], upon admission today 12.3. His hemoglobin from 12.7 went to 11 and his platelets 169. His creatinine is 1.4 and BUN is 19. INR is 1.1. IMPRESSION AND RECOMMENDATION: The patient has chronic congestive heart failure based on the previous records and chest x-ray, he however today does not seem to be in any distress and his blood pressure is on the low side. I would not give him diuretics because he probably is septic. However, I would gently hydrate him and I am going to withhold his amlodipine until his condition is more stable. This consultation was done as a coverage for Dr. Romie Mukherjee. Mylene Ray M.D. DR: Sanjay JOB#: [id number] CC:
--- NOTE | 2018-12-23 13:46 | NUR ---
*-* INSURANCE *-* ALL CLINICALS AND REVIEWS HAVE BEEN FAXED TO: [employer] [facility] [employer] FAX ALL CLINICALS TO [phone]
[2018-12-23 16:00] VITALS: BP 126/59
--- NOTE | 2018-12-23 16:35 | Internal Med Progress Note ---
Subjective Physician Name Librado Faria Attending Physician Librado Faria MD Current Medications Medications (Trade) Dose Ordered Sig/Brian Route PRN Reason Start Time Stop Time Status Last Admin Dose Admin Acetaminophen (Tylenol) 650 mg Q4H PRN ORAL fever 12/20/18 20:30 01/19/19 20:29 Albuterol/ Ipratropium (Albuterol/ Ipratropium) 3 ml Q4H PRN HHN Shortness of Breath 12/20/18 20:30 12/25/18 20:29 Dextrose (Dextrose 50%) 25 ml Q30M PRN IV Hypoglycemia 12/20/18 20:30 01/19/19 20:29 Dextrose (Dextrose 50%) 50 ml Q30M PRN IV Hypoglycemia 12/20/18 20:30 01/19/19 20:29 Heparin Sodium (Porcine) (Heparin 5000 units/ml) 5,000 units EVERY 12 HOURS SUBQ 12/21/18 21:00 01/20/19 20:59 12/23/18 09:02 Levothyroxine Sodium (Synthroid) 75 mcg ACBREAKFAST ORAL 12/21/18 06:30 01/20/19 06:29 12/23/18 06:07 Morphine Sulfate (Morphine Sulfate) 2 mg Q4H PRN IVP Moderate Pain (Pain Scale 4-6) 12/20/18 20:30 12/27/18 20:29 Nitroglycerin (Ntg) 0.4 mg Q5M PRN SL Prn Chest Pain 12/20/18 20:30 01/19/19 20:29 Ondansetron HCl (Zofran) 4 mg Q6H PRN IVP Nausea & Vomiting 12/20/18 20:30 01/19/19 20:29 Polyethylene Glycol (Miralax) 17 gm DAILYPRN PRN ORAL Constipation 12/20/18 20:30 01/19/19 20:29 Temazepam (Restoril) 15 mg HSPRN PRN ORAL Insomnia 12/20/18 20:30 12/27/18 20:29 Vancomycin HCl (Vanco rx to dose) 1 ea DAILY PRN MISC Per rx protocol 12/20/18 21:45 01/19/19 21:44 Vancomycin HCl/ Dextrose 275 ml @ 183.333 mls/hr Q24H IVPB 12/22/18 10:00 12/27/18 09:59 12/23/18 10:37 Allergies: Coded Allergies: No Known Allergies (Unverified , 06/15/12) Subjective awake, more responsive, open eyes, not verbal WBC: 7.0 reduced. Objective Last Vital Signs Date Time Temp Pulse Resp B/P (MAP) Pulse Ox O2 Delivery O2 Flow Rate FiO2 12/23/18 16:00 99.0 80 21 126/59 (81) 95 12/23/18 09:00 Room Air 12/23/18 07:22 21 12/21/18 07:30 2.0 Laboratory Tests Test 12/23/18 06:00 White Blood Count 7.0 K/UL (4.8-10.8) Red Blood Count 4.64 M/UL (4.70-6.10) L Hemoglobin 12.2 G/DL (14.2-18.0) L Hematocrit 38.3 % (42.0-52.0) L Mean Corpuscular Volume 83 FL (80-99) Mean Corpuscular Hemoglobin 26.3 PG (27.0-31.0) L Mean Corpuscular Hemoglobin Concent 31.8 G/DL (32.0-36.0) L Red Cell Distribution Width 14.8 % (11.6-14.8) Platelet Count 183 K/UL (150-450) Mean Platelet Volume 8.6 FL (6.5-10.1) Neutrophils (%) (Auto) 71.3 % (45.0-75.0) Lymphocytes (%) (Auto) 13.3 % (20.0-45.0) L Monocytes (%) (Auto) 12.6 % (1.0-10.0) H Eosinophils (%) (Auto) 2.3 % (0.0-3.0) Basophils (%) (Auto) 0.6 % (0.0-2.0) Sodium Level 143 MMOL/L (136-145) Potassium Level 4.0 MMOL/L (3.5-5.1) Chloride Level 109 MMOL/L (98-107) H Carbon Dioxide Level 26 MMOL/L (21-32) Anion Gap 8 mmol/L (5-15) Blood Urea Nitrogen 17 mg/dL (7-18) Creatinine 1.2 MG/DL (0.55-1.30) Estimat Glomerular Filtration Rate mL/min (>60) Glucose Level 93 MG/DL (74-106) Calcium Level 8.3 MG/DL (8.5-10.1) L Phosphorus Level 2.9 MG/DL (2.5-4.9) Magnesium Level 2.0 MG/DL (1.8-2.4) Microbiology Date/Time Source Procedure Growth Status 12/20/18 18:55 Blood Blood Culture - Preliminary Resulted 12/20/18 18:40 Blood Blood Culture - Preliminary Staphylococcus Sp Coag Neg Resulted 12/20/18 19:33 Nasal Nares 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 Complete 12/20/18 19:33 Rectum - Final NO CARBAPENEM-RESISTANT ENTEROBACTERI... Complete Intake and Output 12/22/18 12/23/18 18:59 06:59 Intake Total 1240 ml Output Total 400 ml 550 ml Balance 840 ml -550 ml Intake Oral 1240 ml Output Urine Total 400 ml 550 ml Objective GENERAL: The patient is awake and responsive to painful stimuli with opening his eyes, however, cannot follow commands. HEAD AND NECK: Pupils are reactive to light. Extraocular movements intact. Neck was supple. No JVD. LUNGS: Good air entry. No wheezing or rhonchi. Poor inspiratory effort. HEART: S1, S2. Distant heart sounds. Normal gallops. ABDOMEN: Soft, nondistended, and nontender. Morbidly obese. EXTREMITIES: No cyanosis or clubbing. Right lower extremity +1 edema and less erythema was noted. Left lower extremities; no edema, No rashes or erythema. NEUROLOGIC: Very limited secondary to the patient's status. However, the patient is moving extremities spontaneously. aphasic. Unable to follow commands. Assessment/Plan Assessment/Plan ASSESSMENT: 1. Recurrent right lower extremity cellulitis. 2. Sepsis secondary to cellulitis of right lower extremity. 3. Morbid obesity. 4. Congestive heart failure, acute on chronic. 5. Mental retardation. 6. Aphasia. 7. Hypertension. 8. Hypothyroidism. PLAN: 1. In monitored unit. 2. We will follow up laboratory and Cultures. 3. Infectious Disease Recommendation Dr. Paulo Herrera: D/C could switch to keflex 500mg PO QID to complete one week of abx ( End date 12/27/18) 4. Broad-spectrum antibiotics with vancomycin, 5. Code status is Full Code. 6. DVT prophylaxis with heparin subcutaneous. 7. Pulmonary Critical Care consultation with Dr. Lazcano. Damaris Benites Payam MD Dec 23, 2018 16:34
--- NOTE | 2018-12-23 19:20 | NUR ---
NURSE NOTES: Received pt. and report from EVON Fritz. Observe pt. resting in bed with both eyes open. Pt. is A/Ox1; nonverbal and responds only to name. outside salesman is in placed, IV site intact, asymptomatic, and patent. Bed is in the lowest position and locked. Call light within reach. No signs/symptoms of acute distress noted at this time. Will continue plan of care.
--- NOTE | 2018-12-23 19:30 | NUR ---
HAND-OFF: Report given to EVON Simons.. Plan of care endorsed.
[2018-12-23 20:00] VITALS: BP 118/55
[2018-12-24 01:18] VITALS: BP 129/68
[2018-12-24 04:00] VITALS: BP 125/65
--- NOTE | 2018-12-24 06:35 | NUR ---
TRANSFER TO FLOOR: Patient transferred to [facility] via bed, per Dr. Faria. Patient transferred to unit without any incident. Report given to EVON Zuñiga. Belongings list checked and medications given to EVON Zuñiga. Vital signs are stable. Orders transferred.
--- NOTE | 2018-12-24 06:45 | NUR ---
NURSE NOTES: Received a report from Drea RN. Pt is in stable condition. Non-verbal. No pain/discomfort noted. IV site is patent and intact. B edema on lower extremities. Cellulitis on R leg. Large red scrotum noted. Overall, skin is intact. Has a condom catheter. Belongings checked. Bed in lowest position. Bed alarm is on. Call light within reach. Will continue to monitor.
[2018-12-24] MEDS ORDERED: Nitroglycerin Subl 0.4mg tab SL PRN (07:00)
[2018-12-24] MEDS ORDERED: Albuterol/Ipratropium 3ml neb HHN PRN (07:00)
[2018-12-24] MEDS ORDERED: Miralax 17gm pkt ORAL PRN (07:01)
[2018-12-24] MEDS ORDERED: Morphine Sulfate 2mg/ml Inj(IV/IM USE ONLY) IVP PRN (07:01)
--- NOTE | 2018-12-24 07:34 | NUR ---
HAND-OFF: Report given to EVON Melchor.
--- NOTE | 2018-12-24 07:40 | NUR ---
NURSE NOTES: Received patient in bed, awake, non-verbal. No s/s of pain or discomfort per FLACC pain scale. IV intact, no s/s of infiltration. right lower ex's swollen elevated lower ex's on pillow. Bed is in low position and locked. Call light and personnel items within reach. Will continue plan of care.
[2018-12-24 08:00] VITALS: BP 151/77
--- NOTE | 2018-12-24 08:30 | NUR ---
NURSE NOTES: Proper incontinent and skin care done.
[2018-12-24] MEDS ORDERED: Heparin 5000 units/ml inj SUBQ SCH (09:00)
[2018-12-24] MEDS ORDERED: Vancomycin 1.25gm Premix 275 ML IVPB SCH (10:00)
[2018-12-24] MEDS ORDERED: CEPHALEXIN500 MG ORAL (10:35)
--- NOTE | 2018-12-24 10:37 | Pulmonology Progress Note ---
Assessment/Plan Problems: (1) Cellulitis of leg, right (2) Sepsis (3) COPD (chronic obstructive pulmonary disease) (4) Hypothyroidism (5) Developmental delay (6) HTN (hypertension) Assessment/Plan improving continue abx bp is controlled symptomatic treatment dc to assisted living with oral antibiotics/ Subjective ROS Limited/Unobtainable: No Allergies: Coded Allergies: No Known Allergies (Unverified , 06/15/12) Objective Last 24 Hour Vital Signs Date Time Temp Pulse Resp B/P (MAP) Pulse Ox O2 Delivery O2 Flow Rate FiO2 12/24/18 08:00 98.2 71 16 151/77 (101) 96 12/24/18 07:01 68 16 Room Air 12/24/18 07:01 Room Air 21 12/24/18 07:01 97 Room Air 21 12/24/18 04:00 99.0 72 16 125/65 (85) 97 12/24/18 04:00 71 12/24/18 01:18 99.5 73 16 129/68 (88) 95 12/24/18 00:00 69 12/23/18 21:00 Room Air 12/23/18 20:03 Room Air 21 12/23/18 20:02 97 Room Air 21 12/23/18 20:02 74 20 Room Air 12/23/18 20:00 75 12/23/18 20:00 97.0 86 17 118/55 (76) 95 12/23/18 16:00 99.0 80 21 126/59 (81) 95 12/23/18 16:00 70 12/23/18 12:00 99.5 74 24 121/59 (79) 95 12/23/18 12:00 67 Intake and Output 12/23/18 12/24/18 19:00 07:00 Intake Total 360 ml Output Total 800 ml 1000 ml Balance -440 ml -1000 ml Intake Oral 360 ml Output Urine Total 800 ml 1000 ml # Voids 1 # Bowel Movements 1 General Appearance: WD/WN HEENT: normocephalic, atraumatic Respiratory/Chest: chest wall non-tender, lungs clear Cardiovascular: normal peripheral pulses, normal rate Abdomen: normal bowel sounds, soft, non tender, no organomegaly Genitourinary: normal external genitalia Skin: no rash, no lesions Laboratory Tests 12/24/18 08:55: Vancomycin Level Trough 8.8 Current Medications Medications (Trade) Dose Ordered Sig/Brian Route PRN Reason Start Time Stop Time Status Last Admin Dose Admin Acetaminophen (Tylenol) 650 mg Q4H PRN ORAL fever 12/24/18 07:00 01/23/19 06:59 Albuterol/ Ipratropium (Albuterol/ Ipratropium) 3 ml Q4H PRN HHN Shortness of Breath 12/24/18 07:00 12/29/18 06:59 Dextrose (Dextrose 50%) 25 ml Q30M PRN IV Hypoglycemia 12/24/18 07:00 01/19/19 20:29 Dextrose (Dextrose 50%) 50 ml Q30M PRN IV Hypoglycemia 12/24/18 07:00 01/19/19 20:29 Heparin Sodium (Porcine) (Heparin 5000 units/ml) 5,000 units EVERY 12 HOURS SUBQ 12/24/18 09:00 01/20/19 20:59 12/24/18 09:22 Levothyroxine Sodium (Synthroid) 75 mcg ACBREAKFAST ORAL 12/25/18 06:30 01/20/19 06:29 Morphine Sulfate (Morphine Sulfate) 2 mg Q4H PRN IVP Moderate Pain (Pain Scale 4-6) 12/24/18 07:01 12/31/18 07:00 Nitroglycerin (Ntg) 0.4 mg Q5M PRN SL Prn Chest Pain 12/24/18 07:00 01/19/19 20:29 Ondansetron HCl (Zofran) 4 mg Q6H PRN IVP Nausea & Vomiting 12/24/18 07:01 01/23/19 07:00 Polyethylene Glycol (Miralax) 17 gm DAILYPRN PRN ORAL Constipation 12/24/18 07:01 01/23/19 07:00 Temazepam (Restoril) 15 mg HSPRN PRN ORAL Insomnia 12/24/18 07:01 12/31/18 07:00 Vancomycin HCl (Vanco rx to dose) 1 ea DAILY PRN MISC Per rx protocol 12/24/18 09:00 01/19/19 21:44 Vancomycin HCl 750 mg/Sodium Chloride 275 ml @ 183.333 mls/hr Q12HR@1100,2300 IVPB 12/24/18 11:00 12/29/18 10:59 Yolanda Lazcano MD Dec 24, 2018 10:36
[2018-12-24] MEDS ORDERED: Vancomycin 750mg/NS 275ml IVPB SCH ×2 (11:00)
[2018-12-24 12:00] VITALS: BP 144/72
--- NOTE | 2018-12-24 13:45 | Cardiology Progress Note ---
Assessment/Plan Assessment/Plan chronic chf hyptension developmental delay \ sepsis / cellulitis copd bp improved on abx seem comfortable renal parameter also improved will resume low dose norvasc Subjective ROS Limited/Unobtainable: Yes Objective Last 24 Hour Vital Signs Date Time Temp Pulse Resp B/P (MAP) Pulse Ox O2 Delivery O2 Flow Rate FiO2 12/24/18 12:00 97.9 65 20 144/72 (96) 98 12/24/18 10:53 Room Air 12/24/18 08:00 98.2 71 16 151/77 (101) 96 12/24/18 07:01 68 16 Room Air 12/24/18 07:01 Room Air 21 12/24/18 07:01 97 Room Air 21 12/24/18 04:00 99.0 72 16 125/65 (85) 97 12/24/18 04:00 71 12/24/18 01:18 99.5 73 16 129/68 (88) 95 12/24/18 00:00 69 12/23/18 21:00 Room Air 12/23/18 20:03 Room Air 21 12/23/18 20:02 97 Room Air 21 12/23/18 20:02 74 20 Room Air 12/23/18 20:00 75 12/23/18 20:00 97.0 86 17 118/55 (76) 95 12/23/18 16:00 99.0 80 21 126/59 (81) 95 12/23/18 16:00 70 General Appearance: no apparent distress, alert Neck: supple Cardiovascular: normal rate, regular rhythm Respiratory/Chest: lungs clear Abdomen: normal bowel sounds, non tender, soft Extremities: no swelling Intake and Output 12/23/18 12/24/18 18:59 06:59 Intake Total 360 ml Output Total 800 ml 1000 ml Balance -440 ml -1000 ml Intake Oral 360 ml Output Urine Total 800 ml 1000 ml # Voids 1 # Bowel Movements 1 Laboratory Tests Test 12/24/18 08:55 Vancomycin Level Trough 8.8 ug/mL (5.0-12.0) Rmoie Mukherjee MD Dec 24, 2018 13:45
--- NOTE | 2018-12-24 14:04 | Infectious Diseases Prog Note ---
Assessment/Plan Assessment/Plan Assessment/Plan 83 yo male with PMHx of Mental Retardation, Aphasia, CHF, HTN, Recurrent RLE Cellulitis who was brought to the ED for right lower ext discoloration/rash. B/L Erythema - Most likely cellulitis Hx of Cellulitis Aferbile WBCs of 19 initially now resolved UA (-) CXR Mild CHF Blood Cx positive 12/20/18 CoNS - likely contaminant ; 12/23 Bcx p Mental Retardation Aphasia CHF HTN PLAN - Continue Vancomycin #4 On D/C could switch to keflex 500mg PO QID to complete one week of abx ( End date 12/27/18) - 12/21/18 S/P Cefepime - f/u repeat blood Cx - Monitor rash - Monitor CBC and Temps We will continue to follow the patient during this hospitalization. Subjective Allergies: Coded Allergies: No Known Allergies (Unverified , 06/15/12) Subjective afebrile leukocytosis resolved repeat Bcx p Objective Vital Signs Last 24 Hour Vital Signs Date Time Temp Pulse Resp B/P (MAP) Pulse Ox O2 Delivery O2 Flow Rate FiO2 12/24/18 12:00 97.9 65 20 144/72 (96) 98 12/24/18 10:53 Room Air 12/24/18 08:00 98.2 71 16 151/77 (101) 96 12/24/18 07:01 68 16 Room Air 12/24/18 07:01 Room Air 21 12/24/18 07:01 97 Room Air 21 12/24/18 04:00 99.0 72 16 125/65 (85) 97 12/24/18 04:00 71 12/24/18 01:18 99.5 73 16 129/68 (88) 95 12/24/18 00:00 69 12/23/18 21:00 Room Air 12/23/18 20:03 Room Air 21 12/23/18 20:02 97 Room Air 21 12/23/18 20:02 74 20 Room Air 12/23/18 20:00 75 12/23/18 20:00 97.0 86 17 118/55 (76) 95 12/23/18 16:00 99.0 80 21 126/59 (81) 95 12/23/18 16:00 70 Height (Feet): 5 Height (Inches): 8.00 Weight (Pounds): 180 Objective Gen: NAD, HEENT: NCAT, MMM, EOMI, PERRL, No Oral lesion, no scleral icterus NECK: full range of motion, supple, no meningismus, No LAD, No JVD LUNGS: CTAB, No W/C, No Accessory muscle use CARDS: RRR, S1, S2, No M/R/G, ABD: Soft, NT, ND, No R/G, + BS, No HSM, No Masses : Deferred Ext: C/C/E, Pulses 2+ B/L (DP, Rad): NEURO: A/O x 0, Strength and Sensation Grossly intact SKIN: Warm/dry, right lower ext erythema with some rash Laboratory Tests Test 12/24/18 08:55 Vancomycin Level Trough 8.8 ug/mL (5.0-12.0) Current Medications Medications (Trade) Dose Ordered Sig/Brian Route PRN Reason Start Time Stop Time Status Last Admin Dose Admin Acetaminophen (Tylenol) 650 mg Q4H PRN ORAL fever 12/24/18 07:00 01/23/19 06:59 Albuterol/ Ipratropium (Albuterol/ Ipratropium) 3 ml Q4H PRN HHN Shortness of Breath 12/24/18 07:00 12/29/18 06:59 Amlodipine Besylate (Norvasc) 2.5 mg DAILY ORAL 12/25/18 09:00 01/24/19 08:59 Dextrose (Dextrose 50%) 25 ml Q30M PRN IV Hypoglycemia 12/24/18 07:00 01/19/19 20:29 Dextrose (Dextrose 50%) 50 ml Q30M PRN IV Hypoglycemia 12/24/18 07:00 01/19/19 20:29 Heparin Sodium (Porcine) (Heparin 5000 units/ml) 5,000 units EVERY 12 HOURS SUBQ 12/24/18 09:00 01/20/19 20:59 12/24/18 09:22 Levothyroxine Sodium (Synthroid) 75 mcg ACBREAKFAST ORAL 12/25/18 06:30 01/20/19 06:29 Morphine Sulfate (Morphine Sulfate) 2 mg Q4H PRN IVP Moderate Pain (Pain Scale 4-6) 12/24/18 07:01 12/31/18 07:00 Nitroglycerin (Ntg) 0.4 mg Q5M PRN SL Prn Chest Pain 12/24/18 07:00 01/19/19 20:29 Ondansetron HCl (Zofran) 4 mg Q6H PRN IVP Nausea & Vomiting 12/24/18 07:01 01/23/19 07:00 Polyethylene Glycol (Miralax) 17 gm DAILYPRN PRN ORAL Constipation 12/24/18 07:01 01/23/19 07:00 Temazepam (Restoril) 15 mg HSPRN PRN ORAL Insomnia 12/24/18 07:01 12/31/18 07:00 Vancomycin HCl (Vanco rx to dose) 1 ea DAILY PRN MISC Per rx protocol 12/24/18 09:00 01/19/19 21:44 Vancomycin HCl 750 mg/Sodium Chloride 275 ml @ 183.333 mls/hr Q12HR@1100,2300 IVPB 12/24/18 11:00 12/29/18 10:59 12/24/18 12:04 Joycelyn Escobar M.D. Dec 24, 2018 14:04
--- NOTE | 2018-12-24 14:12 | NUR ---
*-* INSURANCE *-* ALL CLINICALS AND REVIEWS HAVE BEEN FAXED TO: [employer] [facility] [employer] PND FAX ALL CLINICALS TO [phone]
--- NOTE | 2018-12-24 15:11 | NUR ---
PHOTOGRAPHER NOTES SPOKE WITH [facility] FROM [facility] PT TO RETURN TODAY. REQUIRING HOSPITALIZATION. [facility] TO TRANSPORT PT HOME.WITH A ETA 1630.
--- NOTE | 2018-12-24 16:16 | Internal Med Progress Note ---
Subjective Date of Service: Dec 24, 2018 Physician Name Chicho Ring Attending Physician Librado Faria MD Current Medications Medications (Trade) Dose Ordered Sig/Brian Route PRN Reason Start Time Stop Time Status Last Admin Dose Admin Acetaminophen (Tylenol) 650 mg Q4H PRN ORAL fever 12/24/18 07:00 01/23/19 06:59 Albuterol/ Ipratropium (Albuterol/ Ipratropium) 3 ml Q4H PRN HHN Shortness of Breath 12/24/18 07:00 12/29/18 06:59 Amlodipine Besylate (Norvasc) 2.5 mg DAILY ORAL 12/25/18 09:00 01/24/19 08:59 Dextrose (Dextrose 50%) 25 ml Q30M PRN IV Hypoglycemia 12/24/18 07:00 01/19/19 20:29 Dextrose (Dextrose 50%) 50 ml Q30M PRN IV Hypoglycemia 12/24/18 07:00 01/19/19 20:29 Heparin Sodium (Porcine) (Heparin 5000 units/ml) 5,000 units EVERY 12 HOURS SUBQ 12/24/18 09:00 01/20/19 20:59 12/24/18 09:22 Levothyroxine Sodium (Synthroid) 75 mcg ACBREAKFAST ORAL 12/25/18 06:30 01/20/19 06:29 Morphine Sulfate (Morphine Sulfate) 2 mg Q4H PRN IVP Moderate Pain (Pain Scale 4-6) 12/24/18 07:01 12/31/18 07:00 Nitroglycerin (Ntg) 0.4 mg Q5M PRN SL Prn Chest Pain 12/24/18 07:00 01/19/19 20:29 Ondansetron HCl (Zofran) 4 mg Q6H PRN IVP Nausea & Vomiting 12/24/18 07:01 01/23/19 07:00 Polyethylene Glycol (Miralax) 17 gm DAILYPRN PRN ORAL Constipation 12/24/18 07:01 01/23/19 07:00 Temazepam (Restoril) 15 mg HSPRN PRN ORAL Insomnia 12/24/18 07:01 12/31/18 07:00 Vancomycin HCl (Vanco rx to dose) 1 ea DAILY PRN MISC Per rx protocol 12/24/18 09:00 01/19/19 21:44 Vancomycin HCl 750 mg/Sodium Chloride 275 ml @ 183.333 mls/hr Q12HR@1100,2300 IVPB 12/24/18 11:00 12/29/18 10:59 12/24/18 12:04 Allergies: Coded Allergies: No Known Allergies (Unverified , 06/15/12) ROS Limited/Unobtainable: Yes Subjective 83 YO M admitted with right leg cellulitis. Cover for Int Med-Dr Faria. Objective Last Vital Signs Date Time Temp Pulse Resp B/P (MAP) Pulse Ox O2 Delivery O2 Flow Rate FiO2 12/24/18 12:00 97.9 65 20 144/72 (96) 98 12/24/18 10:53 Room Air 12/24/18 07:01 21 12/21/18 07:30 2.0 Laboratory Tests Test 12/24/18 08:55 Vancomycin Level Trough 8.8 ug/mL (5.0-12.0) Intake and Output 12/23/18 12/24/18 18:59 06:59 Intake Total 360 ml Output Total 800 ml 1000 ml Balance -440 ml -1000 ml Intake Oral 360 ml Output Urine Total 800 ml 1000 ml # Voids 1 # Bowel Movements 1 Objective Objective GENERAL: The patient is awake and responsive to painful stimuli with opening his eyes, however, cannot follow commands. HEAD AND NECK: Pupils are reactive to light. Extraocular movements intact. Neck was supple. No JVD. LUNGS: Good air entry. No wheezing or rhonchi. Poor inspiratory effort. HEART: S1, S2. Distant heart sounds. Normal gallops. ABDOMEN: Soft, nondistended, and nontender. Morbidly obese. EXTREMITIES: No cyanosis or clubbing. Right lower extremity +1 edema and less erythema was noted. Left lower extremities; no edema, No rashes or erythema. NEUROLOGIC: Very limited secondary to the patient's status. However, the patient is moving extremities spontaneously. aphasic. Unable to follow commands. Assessment/Plan Assessment/Plan ASSESSMENT: 1. Recurrent right lower extremity cellulitis. 2. Sepsis secondary to cellulitis of right lower extremity. 3. Morbid obesity. 4. Congestive heart failure, acute on chronic. 5. Mental retardation. 6. Aphasia. 7. Hypertension. 8. Hypothyroidism. PLAN: 1. In monitored unit. 2. We will follow up laboratory and Cultures. 3. Infectious Disease Recommendation Dr. Paulo Herrera: D/C could switch to keflex 500mg PO QID to complete one week of abx ( End date 12/27/18) 4. Broad-spectrum antibiotics with vancomycin, 5. Code status is Full Code. 6. DVT prophylaxis with heparin subcutaneous. 7. Pulmonary Critical Care consultation with Dr. Lazcano. 8. [facility]charge to [facility] today Chicho Ring MD Dec 24, 2018 16:16
--- NOTE | 2018-12-24 16:18 | NUR ---
NURSE NOTES: Patient [facility] to [facility] accompanied by two ambulance personnel via gurney in stable condition, Prior to discharge, patient was seen by Dr. Lazcano. discharge instruction given to the patient's caregiver Bibiana Perry. Keflex was filled from [facility] pharmacy and sent with the patient. Patient has no belongings. IV and IV was removed. No /s of infection on IV removal site. Proper incontinent and skin care done. Skin intact,no skin break. Picture not taken since patient has no pressure sore. Patient's caregiver made [facility] for discharge. RN tried to call the facility but no one answer the phone.
--- NOTE | 2018-12-24 18:01 | Cardiology Report ---
APPROVED REPORT EXAM: Two-dimensional and M-mode echocardiogram with Doppler and color Doppler. INDICATION LV FUNCTION M-Mode DIMENSIONS IVSd1.1 (0.7-1.1cm)Left Atrium (MM)4.1 (1.6-4.0cm) LVDd5.3 (3.5-5.6cm)Aortic Root3.2 (2.0-3.7cm) PWd1.1 (0.7-1.1cm)Aortic Cusp Exc.1.9 (1.5-2.0cm) IVSs1.7 cm LVDs2.7 (2.5-4.0cm) PWs1.0 cm Normal left ventricular chamber size, systolic function and wall motion. Left ventricular ejection fraction estimated to be 55-60%. Mild left ventricular hypertrophy by 2-D. No evidence of pericardial effusion. Mild left atrial enlargement . Right cardiac chamber sizes are within normal limits. Aortic valve calcification with normal cusp excursion . Mildly thickened mitral valve leaflets with normal excursion. Mild mitral annulus and aortic root calcification. Pulmonic valve not well visualized. IVC at normal size with physiologic collapse . A color flow and spectral Doppler study was performed and revealed: Trace aortic insufficiency . Normal left ventricular diastolic function . Mild mitral regurgitation. Trace tricuspid regurgitation. Tricuspid systolic velocities suggests peak right ventricular systolic pressure of 17 mmHg.
--- NOTE | 2018-12-24 18:34 | Cardiology Report ---
APPROVED REPORT EKG Measurement Heart [id number] Normal sinus rhythm Minimal voltage criteria for LVH, may be normal variant Borderline ECG
--- NOTE | 2018-12-25 23:33 | Diagnostic Imaging Report ---
APPROVED REPORT CPT Code: 06180 Present Symptoms Lower Extremity Pain: Bilateral BILATERAL: Imaging reveals a patent deep venous system bilaterally. There is no evidence of thrombus within the common femoral, superficial femoral, popliteal or tibial segments. The greater saphenous veins are within normal limits. Doppler indicates normal spontaneous flow within these segments.
--- NOTE | 2018-12-26 13:51 | Discharge Summary ---
Discharge Summary Discharge Summary _ DATE OF ADMISSION: 12/21/[address] Faria DATE OF DISCHARGE: [] 12/24/2018 DISCHARGED BY: Dr. Faria REASON FOR ADMISSION: 83 years old male with past medical history of hypertension, developmental delay , aphasia, recurrent right lower extremity cellulitis, congestive heart failure hypothyroidism was brought by caregiver with right lower extremity discoloration and rash. Onset of symptoms happened earlier that morning prior to presentation to ED. Patient was not on anticoagulation. Patient no reported fever or chills. Upon evaluation vital signs reveal low-grade fever 100.8 mild tachycardia blood pressure 148/81 pulse oximetry was stable on room air. Laboratory workup revealed leukocytosis WBC 19 hemoglobin 12.7 hematocrit 28.9. INR 1.1. Stable electrolytes. BUN 19, creatinine 1.7 glucose 152 stable LFT troponin negative proBNP 961 albumin 3.1 urinalysis revealed no evidence of UTI but showed +2 protein +1 blood. EKG reveals sinus tachycardia no acute ischemic changes chest x-ray revealed no acute cardiopulmonary pathology x-ray revealed evidence of mild CHF patient admitted for further management patient admitted CONSULTANTS: range aide Dr. Mukherjee pulmonary Dr. Lazcano ID specialist Dr. Richards [facility] COURSE: Patient admitted to monitored floor. Patient started on empiric antibiotics. Patient started on DVT prophylaxis. Venous duplex revealed no evidence of acute DVT. Initial blood culture revealed growth of Staphylococcal coagulase negative. Repeated blood culture on 12/23 were negative. Leukocytosis resolved no fevers. Per infectious disease specialist, recommended to switch antibiotics to oral and complete 1 week of antibiotics upon discharge. Reservations Clerk followed. Time echocardiogram revealed preserved ejection fraction of 55-60% with no evidence of wall motion abnormality. Mild ventricular left ventricular hypertrophy noted. Right ventricular systolic pressure of 17. Per range aide, patient had chronic congestive heart failure , based on previous records and chest x-ray . However at this time there was no evidence of CHF decompensation. No indication for diuresis. Blood pressure was on the low side initially. Patient started on gentle IV hydration. As blood pressure stabilized, patient started on calcium channel mariel for blood pressure management.. Nitroglycerin was on board as needed. Supplemental oxygen provided as needed to keep pulse oximetry above 92%. Pulmonary toilet was on standby. No evidence of respiratory distress. Pulse oximetry was stable on room air. Levothyroxine was continued. Pain management was addressed. Bowel regimen instituted. Patient clinically stabilized and was ready for transfer back to assisted living for continuation of care. FINAL DIAGNOSES: Recurrent right lower extremity cellulitis Sepsis secondary to cellulitis of right lower extremity Morbid obesity Chronic congestive heart failure COPD Mental retardation Aphasia Hypertension Hypothyroidism DISCHARGE MEDICATIONS: See Medication Reconciliation list. DISCHARGE INSTRUCTIONS: Patient was discharged to assisted living. Follow up with primary care provider in one week. I have been assigned to dictate discharge summary for this account. I was not involved in the patient's management. Stephanie Pennington NP Dec 26, 2018 13:51
== END 2018-12-24 16:30 | disposition home or self-care (01) | DRG 720 ==
LOC: EMR 19:59 → 2E 20:02 → EDBEDREQ 20:58 → 2E 12-21 08:22 → 4E 12-24 06:14
DX: A41.9 Sepsis, unspecified organism (principal); I50.33 Acute on chronic diastolic (congestive) heart failure; J44.9 Chronic obstructive pulmonary disease, unspecified; L03.115 Cellulitis of right lower limb; R47.01 Aphasia; E66.01 Morbid (severe) obesity due to excess calories; I11.0 Hypertensive heart disease with heart failure; F79 Unspecified intellectual disabilities; E03.9 Hypothyroidism, unspecified; I50.32 Chronic diastolic (congestive) heart failure; Z79.82 Long term (current) use of aspirin; Z68.27 Body mass index [BMI] 27.0-27.9, adult
CPT/HCPCS: 36415; 36600; 71045; 80048; 80053; 80202; 81001; 81003; 82043; 82550; 82553; 82570; 82803; 83605; 83735; 83880; 84100; 84133; 84300; 84484; 84550; 85007; 85025; 85610; 85651; 85730; 86850; 86900; 86901; 87040; 87081; 87181; 89050; 93005; 93306; 93970; 94664; 94760; 96361; 96365; 96367; 96368; 99285

== ENCOUNTER 2019-02-24 08:39 | Inpatient (IN) | payer MEDICARE, MEDICAID ==
[~2019-02-24] VITALS: Ht 157.5 cm; Wt 84.4 kg
[2019-02-24 08:56] VITALS: BP 130/62
--- NOTE | 2019-02-24 08:56 | NUR ---
ED Nurse Note: PT FROM A BOARD AND CARE BROUGHT IN BY HIS CAREGIVER DUE TO RIGHT LOWER LEG REDNESS AND SWELLING. PER CAREGIVER, SHE NOTICED IT YESTERDAY AND STATES IT MIGHT HAVE STARTED A FEW DAYS AGO. DENIES FEVER AT HOME. PT IS AWAKE BU UNABLE TO FOLLOW COMMANDS AN DNON VERBAL, NO SOB. SINUS TACH ON PEDIATRIC NEUROLOGIST.
--- NOTE | 2019-02-24 09:37 | NUR ---
ED Nurse Note: COLLECTED BLOOD SPECIMEN SENT.
[2019-02-24] MEDS ORDERED: Vancomycin 1 GM in NS 275 ML IVPB ONE (09:45)
[2019-02-24 09:53] LABS: HEMOGLOBIN 13.6 G/DL (14.2-18.0); MEAN CORPUSCULAR VOLUME 82 FL (80-99); PLATELET COUNT 203 K/UL (150-450); RED BLOOD COUNT 5.11 M/UL (4.70-6.10); RED CELL DISTRIBUTION WIDTH 14.6 % (11.6-14.8); WHITE BLOOD COUNT 14.7 K/UL (4.8-10.8)
[2019-02-24 09:54] LABS: ANION GAP 9 mmol/L (5-15); BLOOD UREA NITROGEN 24 mg/dL (7-18); CALCIUM 9.3 MG/DL (8.5-10.1); CARBON DIOXIDE 27 MMOL/L (21-32); CHLORIDE 102 MMOL/L (98-107); CREATININE 1.5 MG/DL (0.55-1.30); SODIUM 138 MMOL/L (136-145)
[2019-02-24 10:20] LABS: ALANINE AMINOTRANSFERASE 27 U/L (12-78); ALBUMIN 2.9 G/DL (3.4-5.0); ALBUMIN/GLOBULIN RATIO 0.5 (1.0-2.7); ALKALINE PHOSPHATASE 107 U/L (46-116); ASPARTATE AMINO TRANSFERASE 41 U/L (15-37); BILIRUBIN,TOTAL 0.5 MG/DL (0.2-1.0); CKMB 2.5 NG/ML (0.0-3.6); CREATINE KINASE 260 U/L (26-308)
--- NOTE | 2019-02-24 10:34 | Emergency Room Report ---
History of Present Illness General Chief Complaint: Skin Rash/Abscess Source: Caregiver Present Illness HPI This patient has a history of developmental delay and is nonverbal at baseline. The patient is accompanied by his caregiver who is the primary historian. She reports that over the past few days she has noted redness and swelling in his right leg. She states that this is the leg he commonly crosses. Historically it does get swollen. However, it does not normally get erythematous. Otherwise, the patient has had normal behavior and appetite. There is no report of fever. There is no report of nausea or vomiting. There are no other complaints. Allergies: Coded Allergies: No Known Allergies (Unverified , 06/15/12) Patient History Past Medical History: see triage record, HTN, CAD, CHF, COPD, other - Developmental delay Social History: Denies: smoking, alcohol use, drug use Reviewed Nursing Documentation: PMH: Agreed; PSxH: Agreed Nursing Documentation-PMH Past Medical History: No History, Except For Hx Cardiac Problems: Yes Hx Hypertension: Yes Hx COPD: Yes Hx Cancer: No Hx Gastrointestinal Problems: No Hx Neurological Problems: Yes Hx Memory Loss: Yes Hx Concentration Difficulty: Yes Hx Speech Problem: Yes Hx Aphasia: Yes Hx Weakness: Yes Review of Systems All Other Systems: limited Physical Exam Vital Signs Date Time Temp Pulse Resp B/P (MAP) Pulse Ox O2 Delivery O2 Flow Rate FiO2 02/24/19 08:46 97.7 99 20 137/67 (90) 99 Room Air Sp02 EP Interpretation: reviewed, normal General Appearance: no apparent distress, alert, GCS 15, non-toxic Head: normocephalic, atraumatic Eyes: bilateral eye normal inspection, bilateral eye PERRL ENT: no angioedema Neck: full range of motion, supple/symm/no masses Respiratory: chest non-tender, lungs clear, normal breath sounds, no respiratory distress, no retraction, no accessory muscle use, speaking full sentences Cardiovascular #1: regular rate, rhythm, no edema Gastrointestinal: normal bowel sounds, non tender, soft, non-distended, no guarding, no rebound Rectal: deferred Musculoskeletal: back normal, normal range of motion, other - RLE with swelling and erythema foot through knee with erythematous streaking in medial thigh. Neurologic: alert, responsive, motor strength/tone normal, other - At baseline , Developmental delay, Non-verbal Psychiatric: judgement/insight normal, memory normal, mood/affect normal, no suicidal/homicidal ideation Skin: warm/dry, well hydrated, other - See above in MSK exam Medical Decision Making Diagnostic Impression: Primary Impression: Cellulitis of leg, right ER Course This patient has cellulitis of the right leg. The right foot and leg up to the knee is swollen and erythematous. This has been a rapid progression. The patient also has streaking in the right inner thigh. Patient was given IV vancomycin and IV fluids and admitted for IV antibiotics and further monitoring. Laboratory Tests Test 02/24/19 09:30 02/24/19 09:54 White Blood Count 14.7 K/UL (4.8-10.8) H Red Blood Count 5.11 M/UL (4.70-6.10) Hemoglobin 13.6 G/DL (14.2-18.0) L Hematocrit 42.0 % (42.0-52.0) Mean Corpuscular Volume 82 FL (80-99) Mean Corpuscular Hemoglobin 26.6 PG (27.0-31.0) L Mean Corpuscular Hemoglobin Concent 32.4 G/DL (32.0-36.0) Red Cell Distribution Width 14.6 % (11.6-14.8) Platelet Count 203 K/UL (150-450) Mean Platelet Volume 7.8 FL (6.5-10.1) Neutrophils (%) (Auto) % (45.0-75.0) Lymphocytes (%) (Auto) % (20.0-45.0) Monocytes (%) (Auto) % (1.0-10.0) Eosinophils (%) (Auto) % (0.0-3.0) Basophils (%) (Auto) % (0.0-2.0) Differential Total Cells Counted 100 Neutrophils % (Manual) 86 % (45-75) H Lymphocytes % (Manual) 6 % (20-45) L Monocytes % (Manual) 7 % (1-10) Eosinophils % (Manual) 0 % (0-3) Basophils % (Manual) 1 % (0-2) Band Neutrophils 0 % (0-8) Platelet Estimate Adequate Platelet Morphology Normal Red Blood Cell Morphology Normal Sodium Level 138 MMOL/L (136-145) Potassium Level 4.0 MMOL/L (3.5-5.1) Chloride Level 102 MMOL/L (98-107) Carbon Dioxide Level 27 MMOL/L (21-32) Anion Gap 9 mmol/L (5-15) Blood Urea Nitrogen 24 mg/dL (7-18) H Creatinine 1.5 MG/DL (0.55-1.30) H Estimate Glomerular Filtration Rate mL/min (>60) Glucose Level 131 MG/DL (74-106) H Lactic Acid Level 3.20 mmol/L (0.4-2.0) H Calcium Level 9.3 MG/DL (8.5-10.1) Total Bilirubin 0.5 MG/DL (0.2-1.0) Aspartate Amino Transferase (AST) 41 U/L (15-37) H Alanine Aminotransferase (ALT) 27 U/L (12-78) Alkaline Phosphatase 107 U/L (46-116) Total Creatine Kinase 260 U/L (26-308) Creatine Kinase MB 2.5 NG/ML (0.0-3.6) Creatine Kinase MB Relative Index 0.9 Troponin I 0.000 ng/mL (0.000-0.056) Total Protein 8.2 G/DL (6.4-8.2) Albumin 2.9 G/DL (3.4-5.0) L Globulin 5.3 g/dL Albumin/Globulin Ratio 0.5 (1.0-2.7) L Urine Color Pending Urine Appearance Pending Urine pH Pending Urine Specific [place] Pending Urine Protein Pending Urine Glucose (UA) Pending Urine Ketones Pending Urine Blood Pending Urine Nitrite Pending Urine Bilirubin Pending Urine Urobilinogen Pending Urine Leukocyte Esterase Pending EKG Diagnostic Results Rate: tachycardiac Rhythm: other - S.tachycardia w/ 1st degree AV block IRBBB ST Segments: no acute changes Rhythm Strip Diag. Results EP Interpretation: yes Rate: 70's Rhythm: NSR, no PVC's, no ectopy Chest X-Ray Diagnostic Results Chest X-Ray Diagnostic Results : Chest X-Ray Ordered: Yes # of Views/Limited/Complete: 1 View Indication: Other EP Interpretation: Yes Interpretation: other - Cardiomegaly, similar to previous CXR Impression: No acute disease Electronically Signed by: Brandee Mraino, CT/MRI/US Diagnostic Results CT/MRI/US Diagnostic Results : Imaging Test Ordered: US RLE Impression No DVT. See official report in the EMR Last Vital Signs Date Time Temp Pulse Resp B/P (MAP) Pulse Ox O2 Delivery O2 Flow Rate FiO2 02/24/19 08:56 97.7 105 20 130/62 100 Room Air Disposition: ADMITTED INPATIENT Condition: Serious Referrals: NON PHYSICIAN (PCP) Brandee Marino DO Feb 24, 2019 10:34
[2019-02-24 10:37] LABS: APPEARANCE,URINE CLEAR; BILIRUBIN, URINE NEGATIVE (NEGATIVE); GLUCOSE, URINE (UA) NEGATIVE (NEGATIVE); KETONES,URINE NEGATIVE (NEGATIVE); LEUKOCYTE ESTERASE ,URINE NEGATIVE (NEGATIVE); NITRITE,URINE NEGATIVE (NEGATIVE); PH,URINE 5 (4.5-8.0); PROTEIN,URINE NEGATIVE (NEGATIVE); UROBILINOGEN,URINE 1 MG/DL (0.0-1.0)
[2019-02-24 10:38] LABS: COLOR,URINE YELLOW
--- NOTE | 2019-02-24 10:47 | Diagnostic Imaging Report ---
Indication: Shortness of breath Technique: One view of the chest Comparison: 12/20/2018 Findings: The heart is enlarged. There is mild interstitial congestion, extent to which appears similar to the previous study. Small amount of pleural fluid on the left also possible. Impression: Cardiac megaly. Mild interstitial congestion, similar to prior study 12/20/2018 Possible small left pleural effusion
[2019-02-24 11:00] VITALS: BP 130/61
--- NOTE | 2019-02-24 11:08 | NUR ---
ED Nurse Note: FINSHING IV FLUIDS BEFORE OBTAINING LACTIC ACID REFLEX.
--- NOTE | 2019-02-24 11:15 | NUR ---
ED Nurse Note: US STAFF AT THE BED SIDE.
--- NOTE | 2019-02-24 11:33 | NUR ---
ED Nurse Note: REPEAT LACTIC ACID SPECIMEN SENT.
--- NOTE | 2019-02-24 12:08 | NUR ---
ED Nurse Note: REPORT GIVEN TO MADHU BARNARD OF [facility].
--- NOTE | 2019-02-24 12:52 | NUR ---
ED Nurse Note: PT TRANSFERRED[facility] TO [facility] VIA GURNEY WITH NO BELONGINGS. VSS.
--- NOTE | 2019-02-24 13:10 | Diagnostic Imaging Report ---
Indication: Right leg pain and cellulitis Technique: Grayscale and duplex images of the right lower extremity veins Comparison: none Findings: On the right, grayscale and duplex images demonstrate no evidence of intraluminal thrombus. Normal phasic Doppler waveforms. Normal compressibility Prominent node noted in the right inguinal region, measures 2.4 x 1.2 cm, demonstrate preserved sandra architecture Impression: Negative for evidence of right lower extremity deep venous thrombosis
[2019-02-24 14:00] VITALS: BP 115/62
--- NOTE | 2019-02-24 14:13 | Consultation ---
History of Present Illness General Chief Complaint: Skin Rash/Abscess Present Illness HPI 83 year old male with developmental delay, . HTN, CAD, CHF, COPD, was taken to ER by his caregiver with CC of redness and swelling in his right leg. Otherwise, the patient has had normal behavior and appetite. There is no report of fever. There is no report of nausea or vomiting. Pt was found to be in acute renal failure and is admitted for further management. Allergies: Coded Allergies: No Known Allergies (Unverified , 06/15/12) Medication History Scheduled Amlodipine Besylate* (Amlodipine Besylate*), 2.5 MG ORAL DAILY, (Reported) Aspirin* (Aspir 81*), 81 MG ORAL DAILY, (Reported) Cephalexin* (Keflex*), 500 MG ORAL EVERY 6 HOURS Furosemide* (Lasix*), 40 MG ORAL TWICE A DAY, (Reported) Levothyroxine Sodium* (Levothyroxine Sodium*), 75 MCG ORAL DAILY, (Reported) Potassium Chloride* (K-Dur*), 20 MEQ ORAL TWICE A DAY, (Reported) Patient History Healthcare decision maker Resuscitation status Full Code Advanced Directive on File Past Medical/Surgical History Past Medical/Surgical History: (1) COPD (chronic obstructive pulmonary disease) (2) Hypothyroidism (3) HTN (hypertension) (4) Developmental delay Review of Systems All Other Systems: negative except mentioned in HPI Physical Exam General Appearance: WD/WN Lines, tubes and drains: peripheral HEENT: normocephalic, atraumatic Neck: non-tender, supple Respiratory/Chest: chest wall non-tender, normal breath sounds Breasts: no masses Cardiovascular/Chest: normal rate Genitourinary/Rectal: normal genital exam, normal prostate exam Skin Exam: rash - right leg Last 24 Hour Vital Signs Date Time Temp Pulse Resp B/P (MAP) Pulse Ox O2 Delivery O2 Flow Rate FiO2 02/24/19 13:22 Room Air 02/24/19 12:52 98.6 89 15 113/72 100 Room Air 02/24/19 11:00 98.0 86 17 130/61 99 Room Air 02/24/19 08:56 97.7 105 20 130/62 100 Room Air 02/24/19 08:46 97.7 99 20 137/67 (90) 99 Room Air Laboratory Tests Test 02/24/19 09:30 02/24/19 09:54 02/24/19 11:30 White Blood Count 14.7 K/UL (4.8-10.8) H Red Blood Count 5.11 M/UL (4.70-6.10) Hemoglobin 13.6 G/DL (14.2-18.0) L Hematocrit 42.0 % (42.0-52.0) Mean Corpuscular Volume 82 FL (80-99) Mean Corpuscular Hemoglobin 26.6 PG (27.0-31.0) L Mean Corpuscular Hemoglobin Concent 32.4 G/DL (32.0-36.0) Red Cell Distribution Width 14.6 % (11.6-14.8) Platelet Count 203 K/UL (150-450) Mean Platelet Volume 7.8 FL (6.5-10.1) Neutrophils (%) (Auto) % (45.0-75.0) Lymphocytes (%) (Auto) % (20.0-45.0) Monocytes (%) (Auto) % (1.0-10.0) Eosinophils (%) (Auto) % (0.0-3.0) Basophils (%) (Auto) % (0.0-2.0) Differential Total Cells Counted 100 Neutrophils % (Manual) 86 % (45-75) H Lymphocytes % (Manual) 6 % (20-45) L Monocytes % (Manual) 7 % (1-10) Eosinophils % (Manual) 0 % (0-3) Basophils % (Manual) 1 % (0-2) Band Neutrophils 0 % (0-8) Platelet Estimate Adequate Platelet Morphology Normal Red Blood Cell Morphology Normal Sodium Level 138 MMOL/L (136-145) Potassium Level 4.0 MMOL/L (3.5-5.1) Chloride Level 102 MMOL/L (98-107) Carbon Dioxide Level 27 MMOL/L (21-32) Anion Gap 9 mmol/L (5-15) Blood Urea Nitrogen 24 mg/dL (7-18) H Creatinine 1.5 MG/DL (0.55-1.30) H Estimat Glomerular Filtration Rate mL/min (>60) Glucose Level 131 MG/DL (74-106) H Lactic Acid Level 3.20 mmol/L (0.4-2.0) H 1.40 mmol/L (0.66-2.22) Calcium Level 9.3 MG/DL (8.5-10.1) Total Bilirubin 0.5 MG/DL (0.2-1.0) Aspartate Amino Transf (AST/SGOT) 41 U/L (15-37) H Alanine Aminotransferase (ALT/SGPT) 27 U/L (12-78) Alkaline Phosphatase 107 U/L (46-116) Total Creatine Kinase 260 U/L (26-308) Creatine Kinase MB 2.5 NG/ML (0.0-3.6) Creatine Kinase MB Relative Index 0.9 Troponin I 0.000 ng/mL (0.000-0.056) Total Protein 8.2 G/DL (6.4-8.2) Albumin 2.9 G/DL (3.4-5.0) L Globulin 5.3 g/dL Albumin/Globulin Ratio 0.5 (1.0-2.7) L Urine Color Yellow Urine Appearance Clear Urine pH 5 (4.5-8.0) Urine Specific [place] 1.015 (1.005-1.035) Urine Protein Negative (NEGATIVE) Urine Glucose (UA) Negative (NEGATIVE) Urine Ketones Negative (NEGATIVE) Urine Blood 5+ (NEGATIVE) H Urine Nitrite Negative (NEGATIVE) Urine Bilirubin Negative (NEGATIVE) Urine Urobilinogen 1 MG/DL (0.0-1.0) H Urine Leukocyte Esterase Negative (NEGATIVE) Urine RBC Tntc /HPF (0 - 0) H Urine WBC 2-4 /HPF (0 - 0) Urine Squamous Epithelial Cells Few /LPF (NONE/OCC) Urine Bacteria Few /HPF (NONE) Urine Hyaline Casts 2-4 /LPF (NONE) H Urine Fine Granular Casts 2-4 /LPF (NONE) H Urine Mucus Few /LPF (NONE/OCC) H Height (Feet): 5 Height (Inches): 2.00 Weight (Pounds): 178 Assessment/Plan Problem List: (1) Cellulitis of leg, right ICD Codes: L03.115 - Cellulitis of right lower limb SNOMED: 253931341 (2) COPD (chronic obstructive pulmonary disease) ICD Codes: J44.9 - Chronic obstructive pulmonary disease, unspecified SNOMED: 97131764 (3) Hypothyroidism ICD Codes: E03.9 - Hypothyroidism, unspecified SNOMED: 80893872 (4) HTN (hypertension) ICD Codes: I10 - Essential (primary) hypertension SNOMED: 52037894 (5) Developmental delay ICD Codes: R62.50 - Unspecified lack of expected normal physiological development in childhood SNOMED: 631002949 Assessment/Plan: iv abx US of leg to rule out DVT continue home meds and titrate the dose if needed check electrolytes renal parameters iv fluids urine electrolytes Yolanda Lazcano MD Feb 24, 2019 14:13
[2019-02-24] MEDS ORDERED: Morphine Sulfate 2mg/ml Inj(IV/IM USE ONLY) IVP PRN (14:15)
[2019-02-24] MEDS ORDERED: Nitroglycerin Subl 0.4mg tab SL PRN (14:15)
[2019-02-24] MEDS ORDERED: Albuterol/Ipratropium 3ml neb HHN PRN (14:15)
[2019-02-24] MEDS ORDERED: Miralax 17gm pkt ORAL PRN (14:15)
[2019-02-24 16:10] VITALS: BP 95/45
[2019-02-24] MEDS ORDERED: Cefepime HCl 2 GM in D5W 110 ML IV SCH (17:00)
[2019-02-24] MEDS ORDERED: NS 275ml ONE (17:34)
[2019-02-24] MEDS ORDERED: Tubing IV Secondary IV ONE (17:34)
--- NOTE | 2019-02-24 19:19 | History & Physical ---
History and Physical History & Physicial Dictated for Int Med-Dr Faria no. [id number]. Chicho Ring MD Feb 24, 2019 19:18
--- NOTE | 2019-02-24 19:20 | NUR ---
HAND-OFF: Report given to EVON Treviño accordingly evon giron.
--- NOTE | 2019-02-24 19:30 | NUR ---
NURSE NOTES: Received report from EVON Polo. Patient is nonverbal and has developmental delay. On room air, no signs of distress or labored breathing. IV intact, patent, and saline locked. Bed in lowest position with call light in reach. Will continue with plan of care.
[2019-02-24 20:00] VITALS: BP 98/48
[2019-02-24] MEDS: Heparin 5000 units/ml inj SUBQ SCH (20:36)
--- NOTE | 2019-02-24 21:00 | History and Physical Report ---
DATE OF ADMISSION: 02/24/2019 CHIEF COMPLAINT: The patient is an 83-year-old male, who presents with complaint of right leg swelling. HISTORY OF PRESENT ILLNESS: The patient himself with a history of developmental delay. The patient himself is unable to contribute much to the history and physical. The patient was admitted to [facility] from 12/20/2018 to 12/24/2018 with similar diagnosis. Please refer to history and physical and discharge summary dictated at that time. According to the patient's caregiver, the patient began to experience right lower extremity swelling and redness. This has been going on for the past week. The patient presented to [facility] emergency room. The patient is admitted for right lower extremity cellulitis. REVIEW OF SYSTEMS: Unable to assess secondary to the patient's mental status. PAST MEDICAL HISTORY: Significant for: 1. 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 2. Developmental delay. 3. Aphasia. 4. Congestive heart failure. 5. Hypertension. 6. Coronary artery disease. 7. Chronic obstructive pulmonary disease. 8. Hypothyroidism. PAST SURGICAL HISTORY: Denies. CURRENT MEDICATIONS: 1. Amlodipine 2.5 mg p.o. daily. 2. Aspirin 81 mg p.o. daily. 3. Lasix 40 mg p.o. twice daily. 4. Levoxyl 0.075 mg p.o. daily. 5. Potassium chloride 20 mEq p.o. daily. ALLERGIES: No known drug allergies. SOCIAL HISTORY: The patient is single and [facility]. The patient denies tobacco or alcohol use. PHYSICAL EXAMINATION: VITAL SIGNS: Temperature 97.7, respirations 20, pulse 105, blood pressure 130/62. GENERAL: The patient is well-developed and well-nourished white male, in no apparent distress. HEENT: Eyes, pupils equal and responsive to light and accommodation. Extraocular movements are intact. NECK: Supple without lymphadenopathy. CHEST: Lungs are clear to auscultation bilaterally without wheezes or rales. CARDIOVASCULAR: Regular rhythm and rate. S1 and S2 are normal without murmurs, rubs, or gallops. ABDOMEN: Soft, nontender, nondistended. Positive bowel sounds. No evidence of hepatosplenomegaly. Currently, no rebound or guarding noted. EXTREMITIES: Right extremity has 1+ pitting edema with erythema to the knee. Otherwise, extremities without clubbing, cyanosis, or edema. RECTAL/GENITAL: Not performed. NEUROLOGIC: Cranial nerves II through XII are grossly intact without focal deficits. LABORATORY STUDIES: WBC 14.7, hemoglobin 13.6, hematocrit 42.0, platelets 203,000. Sodium 138, potassium 4.0, chloride 102, CO2 27, BUN 24, creatinine 1.5, glucose 131, lactic acid 3.20. A chest x-ray was reported as cardiomegaly with mild interstitial congestion. A venous duplex Doppler of bilateral lower extremities failed to demonstrate acute deep venous thrombosis. ASSESSMENT: This is an 83-year-old male. 1. Right lower extremity cellulitis. 2. Leukocytosis. 3. Hypertension. 4. Coronary artery disease. 5. Congestive heart failure. 6. Chronic obstructive pulmonary disease. 7. History of developmental delay. 8. Hypothyroidism. TREATMENT: 1. Right leg cellulitis/leukocytosis. Blood cultures are pending. The patient has been started empirically on cefepime and vancomycin. Await results of blood cultures. 2. Hypertension. Continue amlodipine as above. 3. Coronary artery disease/congestive heart failure. 4. Chronic obstructive pulmonary disease. A Pulmonary consultation has been obtained with Dr. Yolanda Lazcano. 5. Hypothyroidism. Continue Levoxyl as above. 6. Developmental delay. Chicho Ring M.D. DR: JANET JOB#: [id number] CC:
[2019-02-25] VITALS: BP 104/49
[2019-02-25] MEDS ORDERED: Vancomycin 1 GM in D5W 275 ML IV SCH (00:30)
[2019-02-25 04:00] VITALS: BP 101/57
[2019-02-25 06:40] LABS: BASOPHILS % (AUTO) 0.5 % (0.0-2.0); EOSINOPHILS % (AUTO) 0.8 % (0.0-3.0); HEMATOCRIT 34.6 % (42.0-52.0); HEMOGLOBIN 11.3 G/DL (14.2-18.0); LYMPHOCYTES % (AUTO) 13.9 % (20.0-45.0); MEAN CORPUSCULAR VOLUME 82 FL (80-99); NEUTROPHILS % (AUTO) 71.8 % (45.0-75.0); PLATELET COUNT 155 K/UL (150-450); RED BLOOD COUNT 4.21 M/UL (4.70-6.10); RED CELL DISTRIBUTION WIDTH 14.5 % (11.6-14.8); WHITE BLOOD COUNT 8.6 K/UL (4.8-10.8)
[2019-02-25 07:17] LABS: ALANINE AMINOTRANSFERASE 23 U/L (12-78); ALBUMIN 2.3 G/DL (3.4-5.0); ALBUMIN/GLOBULIN RATIO 0.5 (1.0-2.7); ALKALINE PHOSPHATASE 88 U/L (46-116); ANION GAP 11 mmol/L (5-15); ASPARTATE AMINO TRANSFERASE 39 U/L (15-37); BILIRUBIN,TOTAL 0.3 MG/DL (0.2-1.0); BLOOD UREA NITROGEN 15 mg/dL (7-18); CALCIUM 8.6 MG/DL (8.5-10.1); CARBON DIOXIDE 23 MMOL/L (21-32); CHLORIDE 108 MMOL/L (98-107); CREATININE 1.2 MG/DL (0.55-1.30); POTASSIUM 3.6 MMOL/L (3.5-5.1); SODIUM 142 MMOL/L (136-145)
--- NOTE | 2019-02-25 07:47 | NUR ---
HAND-OFF: Report given to EVON Bear.
--- NOTE | 2019-02-25 07:49 | NUR ---
NURSE NOTES: Patient awake, no verbal; on room air, no sign of distress and shortness of breath; no sign of chest pain; IV Right AC flushes well; bed at lowest position, side rails up x2, breaks engaged, bed alarm on; call light within reach; will keep monitoring.
[2019-02-25 08:00] VITALS: BP 100/50
[2019-02-25] MEDS ORDERED: Vancomycin 1gm/D5W 275ml IVPB SCH ×2 (09:00)
[2019-02-25] MEDS: Heparin 5000 units/ml inj SUBQ SCH ×2 (09:02→21:34)
--- NOTE | 2019-02-25 11:07 | Consultation ---
History of Present Illness General Chief Complaint: Skin Rash/Abscess Present Illness Allergies: Coded Allergies: No Known Allergies (Unverified , 06/15/12) Medication History Scheduled Amlodipine Besylate* (Amlodipine Besylate*), 2.5 MG ORAL DAILY, (Reported) Aspirin* (Aspir 81*), 81 MG ORAL DAILY, (Reported) Cephalexin* (Keflex*), 500 MG ORAL EVERY 6 HOURS Furosemide* (Lasix*), 40 MG ORAL TWICE A DAY, (Reported) Levothyroxine Sodium* (Levothyroxine Sodium*), 75 MCG ORAL DAILY, (Reported) Potassium Chloride* (K-Dur*), 20 MEQ ORAL TWICE A DAY, (Reported) Patient History Healthcare decision maker Resuscitation status Full Code Advanced Directive on File Physical Exam Last 24 Hour Vital Signs Date Time Temp Pulse Resp B/P (MAP) Pulse Ox O2 Delivery O2 Flow Rate FiO2 02/25/19 09:00 Room Air 02/25/19 09:00 89 100/50 02/25/19 08:20 89 16 93 Room Air 21 02/25/19 08:00 98.4 88 19 100/50 (67) 97 02/25/19 06:00 98.1 02/25/19 04:00 100.6 94 20 101/57 (72) 95 02/25/19 00:00 99.2 92 20 104/49 (67) 95 02/24/19 21:00 Room Air 02/24/19 20:00 99.2 97 20 98/48 (65) 96 02/24/19 16:10 97.6 80 19 95/45 (62) 96 02/24/19 14:00 97.0 70 18 115/62 (79) 98 02/24/19 13:22 Room Air 02/24/19 12:52 98.6 89 15 113/72 100 Room Air 02/24/19 11:00 98.0 86 17 130/61 99 Room Air Intake and Output 02/24/19 02/25/19 18:59 06:59 Intake Total 2985.0 ml Balance 2985.0 ml Intake Oral 200 ml IV Total 2785.0 ml # Voids 1 2 Laboratory Tests Test 02/24/19 11:30 02/25/19 05:27 Lactic Acid Level 1.40 mmol/L (0.66-2.22) White Blood Count 8.6 K/UL (4.8-10.8) Red Blood Count 4.21 M/UL (4.70-6.10) L Hemoglobin 11.3 G/DL (14.2-18.0) L Hematocrit 34.6 % (42.0-52.0) L Mean Corpuscular Volume 82 FL (80-99) Mean Corpuscular Hemoglobin 26.9 PG (27.0-31.0) L Mean Corpuscular Hemoglobin Concent 32.7 G/DL (32.0-36.0) Red Cell Distribution Width 14.5 % (11.6-14.8) Platelet Count 155 K/UL (150-450) Mean Platelet Volume 8.0 FL (6.5-10.1) Neutrophils (%) (Auto) 71.8 % (45.0-75.0) Lymphocytes (%) (Auto) 13.9 % (20.0-45.0) L Monocytes (%) (Auto) 13.0 % (1.0-10.0) H Eosinophils (%) (Auto) 0.8 % (0.0-3.0) Basophils (%) (Auto) 0.5 % (0.0-2.0) Sodium Level 142 MMOL/L (136-145) Potassium Level 3.6 MMOL/L (3.5-5.1) Chloride Level 108 MMOL/L (98-107) H Carbon Dioxide Level 23 MMOL/L (21-32) Anion Gap 11 mmol/L (5-15) Blood Urea Nitrogen 15 mg/dL (7-18) Creatinine 1.2 MG/DL (0.55-1.30) Estimat Glomerular Filtration Rate mL/min (>60) Glucose Level 83 MG/DL (74-106) Calcium Level 8.6 MG/DL (8.5-10.1) Total Bilirubin 0.3 MG/DL (0.2-1.0) Aspartate Amino Transf (AST/SGOT) 39 U/L (15-37) H Alanine Aminotransferase (ALT/SGPT) 23 U/L (12-78) Alkaline Phosphatase 88 U/L (46-116) Total Protein 6.7 G/DL (6.4-8.2) Albumin 2.3 G/DL (3.4-5.0) L Globulin 4.4 g/dL Albumin/Globulin Ratio 0.5 (1.0-2.7) L Random Vancomycin Level 4.3 ug/mL Height (Feet): 5 Height (Inches): 2.00 Weight (Pounds): 178 Medications Current Medications Medications (Trade) Dose Ordered Sig/Brian Route PRN Reason Start Time Stop Time Status Last Admin Dose Admin Acetaminophen (Tylenol) 650 mg Q4H PRN ORAL fever 02/24/19 14:15 03/26/19 14:14 Albuterol/ Ipratropium (Albuterol/ Ipratropium) 3 ml Q4H PRN HHN Shortness of Breath 02/24/19 14:15 03/01/19 14:14 Amlodipine Besylate (Norvasc) 2.5 mg DAILY ORAL 02/25/19 09:00 03/27/19 08:59 02/25/19 09:00 Cefepime HCl 2 gm/ Dextrose 110 ml @ 220 mls/hr Q24H IV 02/24/19 17:00 03/03/19 16:59 02/24/19 16:42 Dextrose (Dextrose 50%) 25 ml Q30M PRN IV Hypoglycemia 02/24/19 14:15 03/26/19 14:14 Dextrose (Dextrose 50%) 50 ml Q30M PRN IV Hypoglycemia 02/24/19 14:15 03/26/19 14:14 Heparin Sodium (Porcine) (Heparin 5000 units/ml) 5,000 units EVERY 12 HOURS SUBQ 02/24/19 21:00 03/26/19 20:59 02/25/19 09:02 Levothyroxine Sodium (Synthroid) 75 mcg Q24H ORAL 02/25/19 06:30 03/27/19 06:29 02/25/19 06:30 Morphine Sulfate (Morphine Sulfate) 2 mg Q4H PRN IVP Moderate Pain (Pain Scale 4-6) 02/24/19 14:15 03/03/19 14:14 Nitroglycerin (Ntg) 0.4 mg Q5M PRN SL Prn Chest Pain 02/24/19 14:15 03/26/19 14:14 Ondansetron HCl (Zofran) 4 mg Q6H PRN IVP Nausea & Vomiting 02/24/19 14:15 03/26/19 14:14 Polyethylene Glycol (Miralax) 17 gm DAILYPRN PRN ORAL Constipation 02/24/19 14:15 03/26/19 14:14 Temazepam (Restoril) 15 mg HSPRN PRN ORAL Insomnia 02/24/19 14:15 03/03/19 14:14 Vancomycin HCl (Vanco rx to dose) 1 ea DAILY PRN MISC . 02/24/19 14:30 03/26/19 14:29 Vancomycin HCl 1 gm/Dextrose 275 ml @ 183.708 mls/hr Q24H IVPB 02/25/19 09:00 03/02/19 08:59 02/25/19 09:40 Paulo Herrera MD Feb 25, 2019 11:07
--- NOTE | 2019-02-25 11:13 | Consultation ---
History of Present Illness General Date patient seen: Feb 25, 2019 Chief Complaint: Skin Rash/Abscess Reason for Consultation: Cellulitis Present Illness HPI Mr. Barajas is a 83 yo male with PMHx of developmental delay. He has recurrent episodes of cellulits, Aphasia. CHF, HTN, CAD, COPD and hypothroid. He presented to the ED on 02/24/19 with 1 week of RLE swelling and erythema. His is unable to give a history. Per chart he was afebrile in the ED but had WBCs of 14. This has since resolved. ID was consulted for Cellulitis PMHx/PSHx Developmental delay Recurrent episodes of cellulitis Aphasia CHF HTN CAD COPD Hypothroid SocHx Lives at a longterm No E/T/D FamHx Unable to obtain given cognitive impairment Allergies: Coded Allergies: No Known Allergies (Unverified , 06/15/12) Medication History Scheduled Amlodipine Besylate* (Amlodipine Besylate*), 2.5 MG ORAL DAILY, (Reported) Aspirin* (Aspir 81*), 81 MG ORAL DAILY, (Reported) Cephalexin* (Keflex*), 500 MG ORAL EVERY 6 HOURS Furosemide* (Lasix*), 40 MG ORAL TWICE A DAY, (Reported) Levothyroxine Sodium* (Levothyroxine Sodium*), 75 MCG ORAL DAILY, (Reported) Potassium Chloride* (K-Dur*), 20 MEQ ORAL TWICE A DAY, (Reported) Patient History Healthcare decision maker Resuscitation status Full Code Advanced Directive on File Review of Systems ROS Narrative Unable to obtain given cognitive impairment Physical Exam Last 24 Hour Vital Signs Date Time Temp Pulse Resp B/P (MAP) Pulse Ox O2 Delivery O2 Flow Rate FiO2 02/25/19 09:00 Room Air 02/25/19 09:00 89 100/50 02/25/19 08:20 89 16 93 Room Air 21 02/25/19 08:00 98.4 88 19 100/50 (67) 97 02/25/19 06:00 98.1 02/25/19 04:00 100.6 94 20 101/57 (72) 95 02/25/19 00:00 99.2 92 20 104/49 (67) 95 02/24/19 21:00 Room Air 02/24/19 20:00 99.2 97 20 98/48 (65) 96 02/24/19 16:10 97.6 80 19 95/45 (62) 96 02/24/19 14:00 97.0 70 18 115/62 (79) 98 02/24/19 13:22 Room Air 02/24/19 12:52 98.6 89 15 113/72 100 Room Air Intake and Output 02/24/19 02/25/19 18:59 06:59 Intake Total 2985.0 ml Balance 2985.0 ml Intake Oral 200 ml IV Total 2785.0 ml # Voids 1 2 Laboratory Tests Test 02/24/19 11:30 02/25/19 05:27 Lactic Acid Level 1.40 mmol/L (0.66-2.22) White Blood Count 8.6 K/UL (4.8-10.8) Red Blood Count 4.21 M/UL (4.70-6.10) L Hemoglobin 11.3 G/DL (14.2-18.0) L Hematocrit 34.6 % (42.0-52.0) L Mean Corpuscular Volume 82 FL (80-99) Mean Corpuscular Hemoglobin 26.9 PG (27.0-31.0) L Mean Corpuscular Hemoglobin Concent 32.7 G/DL (32.0-36.0) Red Cell Distribution Width 14.5 % (11.6-14.8) Platelet Count 155 K/UL (150-450) Mean Platelet Volume 8.0 FL (6.5-10.1) Neutrophils (%) (Auto) 71.8 % (45.0-75.0) Lymphocytes (%) (Auto) 13.9 % (20.0-45.0) L Monocytes (%) (Auto) 13.0 % (1.0-10.0) H Eosinophils (%) (Auto) 0.8 % (0.0-3.0) Basophils (%) (Auto) 0.5 % (0.0-2.0) Sodium Level 142 MMOL/L (136-145) Potassium Level 3.6 MMOL/L (3.5-5.1) Chloride Level 108 MMOL/L (98-107) H Carbon Dioxide Level 23 MMOL/L (21-32) Anion Gap 11 mmol/L (5-15) Blood Urea Nitrogen 15 mg/dL (7-18) Creatinine 1.2 MG/DL (0.55-1.30) Estimat Glomerular Filtration Rate mL/min (>60) Glucose Level 83 MG/DL (74-106) Calcium Level 8.6 MG/DL (8.5-10.1) Total Bilirubin 0.3 MG/DL (0.2-1.0) Aspartate Amino Transf (AST/SGOT) 39 U/L (15-37) H Alanine Aminotransferase (ALT/SGPT) 23 U/L (12-78) Alkaline Phosphatase 88 U/L (46-116) Total Protein 6.7 G/DL (6.4-8.2) Albumin 2.3 G/DL (3.4-5.0) L Globulin 4.4 g/dL Albumin/Globulin Ratio 0.5 (1.0-2.7) L Random Vancomycin Level 4.3 ug/mL Height (Feet): 5 Height (Inches): 2.00 Weight (Pounds): 178 Medications Current Medications Medications (Trade) Dose Ordered Sig/Brian Route PRN Reason Start Time Stop Time Status Last Admin Dose Admin Acetaminophen (Tylenol) 650 mg Q4H PRN ORAL fever 02/24/19 14:15 03/26/19 14:14 Albuterol/ Ipratropium (Albuterol/ Ipratropium) 3 ml Q4H PRN HHN Shortness of Breath 02/24/19 14:15 03/01/19 14:14 Amlodipine Besylate (Norvasc) 2.5 mg DAILY ORAL 02/25/19 09:00 03/27/19 08:59 02/25/19 09:00 Cefepime HCl 2 gm/ Dextrose 110 ml @ 220 mls/hr Q24H IV 02/24/19 17:00 03/03/19 16:59 02/24/19 16:42 Dextrose (Dextrose 50%) 25 ml Q30M PRN IV Hypoglycemia 02/24/19 14:15 03/26/19 14:14 Dextrose (Dextrose 50%) 50 ml Q30M PRN IV Hypoglycemia 02/24/19 14:15 03/26/19 14:14 Heparin Sodium (Porcine) (Heparin 5000 units/ml) 5,000 units EVERY 12 HOURS SUBQ 02/24/19 21:00 03/26/19 20:59 02/25/19 09:02 Levothyroxine Sodium (Synthroid) 75 mcg Q24H ORAL 02/25/19 06:30 03/27/19 06:29 02/25/19 06:30 Morphine Sulfate (Morphine Sulfate) 2 mg Q4H PRN IVP Moderate Pain (Pain Scale 4-6) 02/24/19 14:15 03/03/19 14:14 Nitroglycerin (Ntg) 0.4 mg Q5M PRN SL Prn Chest Pain 02/24/19 14:15 03/26/19 14:14 Ondansetron HCl (Zofran) 4 mg Q6H PRN IVP Nausea & Vomiting 02/24/19 14:15 03/26/19 14:14 Polyethylene Glycol (Miralax) 17 gm DAILYPRN PRN ORAL Constipation 02/24/19 14:15 03/26/19 14:14 Temazepam (Restoril) 15 mg HSPRN PRN ORAL Insomnia 02/24/19 14:15 03/03/19 14:14 Vancomycin HCl (Vanco rx to dose) 1 ea DAILY PRN MISC . 02/24/19 14:30 03/26/19 14:29 Vancomycin HCl 1 gm/Dextrose 275 ml @ 183.708 mls/hr Q24H IVPB 02/25/19 09:00 03/02/19 08:59 02/25/19 09:40 Objective Narrative Gen: NAD HEENT: NCAT, MMM, EOMI, PERRL, No Oral lesion, no scleral icterus NECK: full range of motion, supple, no meningismus, No LAD, No JVD LUNGS: CTAB, No W/C, No Accessory muscle use CARDS: RRR, S1, S2, No M/R/G, ABD: Soft, NT, ND, No R/G, + BS, No HSM, No Masses : Deferred Ext: C/C/E, Pulses 2+ B/L (DP, Rad), Right lower Ext with Erythema and swelling NEURO: A/O x 0, Strength and Sensation Grossly intact PSYCH: Normal mood and affect SKIN: Warm/dry, No rashes Assessment/Plan Assessment/Plan: 83 yo male with PMHx of developmental delay. He has recurrent episodes of cellulits, Aphasia. CHF, HTN, CAD, COPD and hypothroid. He presented to the ED on 02/24/19 with 1 week of RLE swelling and erythema. Right lower Ext Cellultitis - Afebrile - Leukocytosis - Now resolved Developmental delay Recurrent episodes of cellulits Aphasia CHF HTN CAD COPD Hypothroid PLAN: - Start Cefazolin 1g Q8hr - 02/25/19 S/P Cefepime #1 and Vancomycin #1 - Montior CBC and Temps - leg elevation Thank you for this consult. We will continue to follow the patient during this hospitalization. Paulo Herrera MD Feb 25, 2019 11:13
[2019-02-25 12:00] VITALS: BP 107/53
[2019-02-25] MEDS: ceFAZolin sod 1 GM in D5W 55 ML IVPB SCH ×2 (13:07→21:33)
--- NOTE | 2019-02-25 14:17 | NUR ---
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 TO [facility] [place] ER CC:SKIN RASH SI:CELLULITIS OF THE RIGHT LEG VS: BP 137/67, P 105, T 97.7, RR 20, SpO2 99 WBC 14.7, Hgb 13.6, BUN 24, CR 1.5, AST 41 CXR: Possible small left pleural effusion. Cardiac megaly. IS:VANCOMYCIN 275ml IVPB NS 2.4L IVLG ADMITTED TO MED/SURG DCP: [facility]URN [facility]IV[facility]
--- NOTE | 2019-02-25 14:30 | Pulmonology Progress Note ---
Assessment/Plan Problems: (1) Cellulitis of leg, right (2) COPD (chronic obstructive pulmonary disease) (3) Hypothyroidism (4) HTN (hypertension) (5) Developmental delay Assessment/Plan US of leg to rule out DVT, results pending continue home meds and titrate the dose if needed check electrolytes on Ancef renal parameters improving urine electrolytes Subjective ROS Limited/Unobtainable: No Constitutional: Reports: no symptoms HEENT: Repors: no symptoms Respiratory: Reports: no symptoms Allergies: Coded Allergies: No Known Allergies (Unverified , 06/15/12) Objective Last 24 Hour Vital Signs Date Time Temp Pulse Resp B/P (MAP) Pulse Ox O2 Delivery O2 Flow Rate FiO2 02/25/19 12:00 97.7 79 18 107/53 (71) 95 02/25/19 09:00 Room Air 02/25/19 09:00 89 100/50 02/25/19 08:20 89 16 93 Room Air 21 02/25/19 08:00 98.4 88 19 100/50 (67) 97 02/25/19 06:00 98.1 02/25/19 04:00 100.6 94 20 101/57 (72) 95 02/25/19 00:00 99.2 92 20 104/49 (67) 95 02/24/19 21:00 Room Air 02/24/19 20:00 99.2 97 20 98/48 (65) 96 02/24/19 16:10 97.6 80 19 95/45 (62) 96 Intake and Output 02/24/19 02/25/19 19:00 07:00 Intake Total 2985.0 ml Balance 2985.0 ml Intake Oral 200 ml IV Total 2785.0 ml # Voids 1 2 General Appearance: WD/WN HEENT: normocephalic Respiratory/Chest: chest wall non-tender, lungs clear Cardiovascular: normal peripheral pulses, normal rate Abdomen: normal bowel sounds, soft, non tender Genitourinary: normal external genitalia Extremities: no clubbing Skin: no rash Laboratory Tests 02/25/19 05:27: White Blood Count 8.6, Red Blood Count 4.21L, Hemoglobin 11.3L, Hematocrit 34.6L , Mean Corpuscular Volume 82, Mean Corpuscular Hemoglobin 26.9L, Mean Corpuscular Hemoglobin Concent 32.7, Red Cell Distribution Width 14.5, Platelet Count 155, Mean Platelet Volume 8.0, Neutrophils (%) (Auto) 71.8, Lymphocytes (% ) (Auto) 13.9L, Monocytes (%) (Auto) 13.0H, Eosinophils (%) (Auto) 0.8, Basophils (%) (Auto) 0.5, Sodium Level 142, Potassium Level 3.6, Chloride Level 108H, Carbon Dioxide Level 23, Anion Gap 11, Blood Urea Nitrogen 15, Creatinine 1.2, Estimat Glomerular Filtration Rate , Glucose Level 83, Calcium Level 8.6, Total Bilirubin 0.3, Aspartate Amino Transf (AST/SGOT) 39H, Alanine Aminotransferase (ALT/SGPT) 23, Alkaline Phosphatase 88, Total Protein 6.7, Albumin 2.3L, Globulin 4.4, Albumin/Globulin Ratio 0.5L, Random Vancomycin Level 4.3 Current Medications Medications (Trade) Dose Ordered Sig/Brian Route PRN Reason Start Time Stop Time Status Last Admin Dose Admin Acetaminophen (Tylenol) 650 mg Q4H PRN ORAL fever 02/24/19 14:15 03/26/19 14:14 Albuterol/ Ipratropium (Albuterol/ Ipratropium) 3 ml Q4H PRN HHN Shortness of Breath 02/24/19 14:15 03/01/19 14:14 Amlodipine Besylate (Norvasc) 2.5 mg DAILY ORAL 02/25/19 09:00 03/27/19 08:59 02/25/19 09:00 Cefazolin Sodium 1 gm/Dextrose 55 ml @ 110 mls/hr EVERY 8 HOURS IVPB 02/25/19 14:00 03/04/19 13:59 02/25/19 13:07 Dextrose (Dextrose 50%) 25 ml Q30M PRN IV Hypoglycemia 02/24/19 14:15 03/26/19 14:14 Dextrose (Dextrose 50%) 50 ml Q30M PRN IV Hypoglycemia 02/24/19 14:15 03/26/19 14:14 Heparin Sodium (Porcine) (Heparin 5000 units/ml) 5,000 units EVERY 12 HOURS SUBQ 02/24/19 21:00 03/26/19 20:59 02/25/19 09:02 Levothyroxine Sodium (Synthroid) 75 mcg Q24H ORAL 02/25/19 06:30 03/27/19 06:29 02/25/19 06:30 Morphine Sulfate (Morphine Sulfate) 2 mg Q4H PRN IVP Moderate Pain (Pain Scale 4-6) 02/24/19 14:15 03/03/19 14:14 Nitroglycerin (Ntg) 0.4 mg Q5M PRN SL Prn Chest Pain 02/24/19 14:15 03/26/19 14:14 Ondansetron HCl (Zofran) 4 mg Q6H PRN IVP Nausea & Vomiting 02/24/19 14:15 03/26/19 14:14 Polyethylene Glycol (Miralax) 17 gm DAILYPRN PRN ORAL Constipation 02/24/19 14:15 03/26/19 14:14 Temazepam (Restoril) 15 mg HSPRN PRN ORAL Insomnia 02/24/19 14:15 03/03/19 14:14 Yolanda Lazcano MD Feb 25, 2019 14:30
[2019-02-25 16:00] VITALS: BP 106/55
--- NOTE | 2019-02-25 16:07 | Cardiology Report ---
APPROVED REPORT EKG Measurement Heart [id number] Sinus tachycardia with 1st degree AV block Incomplete right bundle branch block Borderline ECG
--- NOTE | 2019-02-25 16:46 | NUR ---
*-* INSURANCE *-* ALL CLINICALS AND REVIEWS HAVE BEEN FAXED TO: [facility] FAX ALL CLINICALS TO [phone]
--- NOTE | 2019-02-25 18:10 | Internal Med Progress Note ---
Subjective Date of Service: Feb 25, 2019 Physician Name Chicho Ring Attending Physician Librado Faria MD Current Medications Medications (Trade) Dose Ordered Sig/Brian Route PRN Reason Start Time Stop Time Status Last Admin Dose Admin Acetaminophen (Tylenol) 650 mg Q4H PRN ORAL fever 02/24/19 14:15 03/26/19 14:14 Albuterol/ Ipratropium (Albuterol/ Ipratropium) 3 ml Q4H PRN HHN Shortness of Breath 02/24/19 14:15 03/01/19 14:14 Amlodipine Besylate (Norvasc) 2.5 mg DAILY ORAL 02/25/19 09:00 03/27/19 08:59 02/25/19 09:00 Cefazolin Sodium 1 gm/Dextrose 55 ml @ 110 mls/hr EVERY 8 HOURS IVPB 02/25/19 14:00 03/04/19 13:59 02/25/19 13:07 Dextrose (Dextrose 50%) 25 ml Q30M PRN IV Hypoglycemia 02/24/19 14:15 03/26/19 14:14 Dextrose (Dextrose 50%) 50 ml Q30M PRN IV Hypoglycemia 02/24/19 14:15 03/26/19 14:14 Heparin Sodium (Porcine) (Heparin 5000 units/ml) 5,000 units EVERY 12 HOURS SUBQ 02/24/19 21:00 03/26/19 20:59 02/25/19 09:02 Levothyroxine Sodium (Synthroid) 75 mcg Q24H ORAL 02/25/19 06:30 03/27/19 06:29 02/25/19 06:30 Morphine Sulfate (Morphine Sulfate) 2 mg Q4H PRN IVP Moderate Pain (Pain Scale 4-6) 02/24/19 14:15 03/03/19 14:14 Nitroglycerin (Ntg) 0.4 mg Q5M PRN SL Prn Chest Pain 02/24/19 14:15 03/26/19 14:14 Ondansetron HCl (Zofran) 4 mg Q6H PRN IVP Nausea & Vomiting 02/24/19 14:15 03/26/19 14:14 Polyethylene Glycol (Miralax) 17 gm DAILYPRN PRN ORAL Constipation 02/24/19 14:15 03/26/19 14:14 Temazepam (Restoril) 15 mg HSPRN PRN ORAL Insomnia 02/24/19 14:15 03/03/19 14:14 Allergies: Coded Allergies: No Known Allergies (Unverified , 06/15/12) ROS Limited/Unobtainable: No Constitutional: Reports: no symptoms HEENT: Reports: no symptoms Cardiovascular: Reports: no symptoms Respiratory: Reports: no symptoms Gastrointestinal/Abdominal: Reports: no symptoms Genitourinary: Reports: no symptoms Neurologic/Psychiatric: Reports: no symptoms Subjective 83 YO M admitted with pain in right leg. Now cellulitis of right leg. Cover for Int Jaswinder-Dr Faria. Objective Last Vital Signs Date Time Temp Pulse Resp B/P (MAP) Pulse Ox O2 Delivery O2 Flow Rate FiO2 02/25/19 16:00 98.6 92 18 106/55 (72) 97 02/25/19 09:00 Room Air 02/25/19 08:20 21 Laboratory Tests Test 02/25/19 05:27 White Blood Count 8.6 K/UL (4.8-10.8) Red Blood Count 4.21 M/UL (4.70-6.10) L Hemoglobin 11.3 G/DL (14.2-18.0) L Hematocrit 34.6 % (42.0-52.0) L Mean Corpuscular Volume 82 FL (80-99) Mean Corpuscular Hemoglobin 26.9 PG (27.0-31.0) L Mean Corpuscular Hemoglobin Concent 32.7 G/DL (32.0-36.0) Red Cell Distribution Width 14.5 % (11.6-14.8) Platelet Count 155 K/UL (150-450) Mean Platelet Volume 8.0 FL (6.5-10.1) Neutrophils (%) (Auto) 71.8 % (45.0-75.0) Lymphocytes (%) (Auto) 13.9 % (20.0-45.0) L Monocytes (%) (Auto) 13.0 % (1.0-10.0) H Eosinophils (%) (Auto) 0.8 % (0.0-3.0) Basophils (%) (Auto) 0.5 % (0.0-2.0) Sodium Level 142 MMOL/L (136-145) Potassium Level 3.6 MMOL/L (3.5-5.1) Chloride Level 108 MMOL/L (98-107) H Carbon Dioxide Level 23 MMOL/L (21-32) Anion Gap 11 mmol/L (5-15) Blood Urea Nitrogen 15 mg/dL (7-18) Creatinine 1.2 MG/DL (0.55-1.30) Estimat Glomerular Filtration Rate mL/min (>60) Glucose Level 83 MG/DL (74-106) Calcium Level 8.6 MG/DL (8.5-10.1) Total Bilirubin 0.3 MG/DL (0.2-1.0) Aspartate Amino Transf (AST/SGOT) 39 U/L (15-37) H Alanine Aminotransferase (ALT/SGPT) 23 U/L (12-78) Alkaline Phosphatase 88 U/L (46-116) Total Protein 6.7 G/DL (6.4-8.2) Albumin 2.3 G/DL (3.4-5.0) L Globulin 4.4 g/dL Albumin/Globulin Ratio 0.5 (1.0-2.7) L Random Vancomycin Level 4.3 ug/mL Intake and Output 02/24/19 02/25/19 19:00 07:00 Intake Total 2985.0 ml Balance 2985.0 ml Intake Oral 200 ml IV Total 2785.0 ml # Voids 1 2 Objective PHYSICAL EXAMINATION: GENERAL: The patient is well-developed and well-nourished white male, in no apparent distress. HEENT: Eyes, pupils equal and responsive to light and accommodation. Extraocular movements are intact. NECK: Supple without lymphadenopathy. CHEST: Lungs are clear to auscultation bilaterally without wheezes or rales. CARDIOVASCULAR: Regular rhythm and rate. S1 and S2 are normal without murmurs, rubs, or gallops. ABDOMEN: Soft, nontender, nondistended. Positive bowel sounds. No evidence of hepatosplenomegaly. Currently, no rebound or guarding noted. EXTREMITIES: Right extremity has 1+ pitting edema with erythema to the knee. Otherwise, extremities without clubbing, cyanosis, or edema. RECTAL/GENITAL: Not performed. NEUROLOGIC: Cranial nerves II through XII are grossly intact without focal deficits. Assessment/Plan Assessment/Plan ASSESSMENT: This is an 83-year-old male. 1. Right lower extremity cellulitis. 2. Leukocytosis. 3. Hypertension. 4. Coronary artery disease. 5. Congestive heart failure. 6. Chronic obstructive pulmonary disease. 7. History of developmental delay. 8. Hypothyroidism. TREATMENT: 1. Right leg cellulitis/leukocytosis. The patient has been started empirically on cefazolin by ID=Dr Herrera. Await results of blood cultures. 2. Hypertension. Continue amlodipine as above. 3. Coronary artery disease/congestive heart failure. 4. Chronic obstructive pulmonary disease. A Pulmonary consultation has been obtained with Dr. Yolanda Lazcano. 5. Hypothyroidism. Continue Levoxyl as above. 6. Developmental delay. Chicho Ring MD Feb 25, 2019 18:10
--- NOTE | 2019-02-25 18:38 | CDS Physician Query ---
Clarification is required for compliance, coding accuracy, and to reflect severity of illness for this patient Dear Dr. Chicho Ring Date: 02/25/2019 83-year-old male, who presents with complaint of right leg swelling. Physical Exam: EXTREMITIES: Right extremity has 1+ pitting edema with erythema to the knee. Otherwise, extremities without clubbing, cyanosis, or edema. PAST MEDICAL HISTORY: Significant for: 1. 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 2. Developmental delay. Labs: WBC:14.7 Temp:99.2,100.6 [place]: 97,94 RR:20 Lactic acid: 3.2 Cr:1.5,1.2 Rx: Vanco IV X3 nasra + Cephazolin IV According to the clinical indications above, please indicate below the condition PHYSICIAN RESPONSE: [ ] Sepsis [ ]SIRS [ ]SIRS with organ dysfunction [ ]Septic Shock [ ]Not applicable [ X ]Other: Cellulitis Present on Admission: [ X] Yes [ ] No [ ] Clinically Undetermined Physician signature Date Please also document in your Progress Notes and/or Discharge Summary and indicate if the condition was present on admission. MINESH
--- NOTE | 2019-02-25 18:49 | CDS Physician Query ---
Clarification is required for compliance, coding accuracy, and to reflect severity of illness for this patient Dear Chicho Date: 02/25/2019 Forensic Investigator/CDS Name: Zita The patient is an 83-year-old male, who presents with complaint of right leg swelling. The patient is admitted for right lower extremity cellulitis. Risk Factors: Developmental delay, Hypertension,Hypothyroidism Labs: Cr: 1.5H, 1.2 BUN:24H,15 U/A: URINE RBC: Tntc H Hyaline Cast:2-4H Rx: Iv hydration and Vanco/IV Please Clarify the type of renal failure below: Etiology [X] Acute Renal Failure w/ Tubular Necrosis [] Acute Renal Failure w/ Cortical Necrosis [] Acute Renal Failure w/ Medullary Necrosis [] Acute Renal Failure (unspecified) [] Other: If Chronic, please specify the stage: [X] CKD Stage 1 [] CKD Stage 2 [] CKD Stage 3 [] CKD Stage 4 [] CKD Stage 5 [] ESRD [] Not applicable Present on Admission: [X] Yes [] No [] Clinically Undetermined Physician signature Date Please also document in your Progress Notes and/or Discharge Summary and indicate if the condition was present on admission. MINESH
--- NOTE | 2019-02-25 19:39 | NUR ---
HAND-OFF: Report given to EVON Rojas.
--- NOTE | 2019-02-25 20:30 | NUR ---
NURSE NOTES: PATIENT IN BED, AWAKE, DOES NOT ANSWER NURSE'S QUESTIONS. IV IN PLACE, PATENT. NO S/S OF PAIN OR DISTRESS NOTED. REDNESS ON RIGHT LEG AND RIGHT ARM NOTED. BED IN LOWEST POSITION, LOCKED, BED ALARM ON. WILL CONTINUE TO MONITOR.
[2019-02-25 20:46] VITALS: BP 146/70
[2019-02-26 00:47] VITALS: BP 140/84
[2019-02-26 04:52] VITALS: BP 139/86
--- NOTE | 2019-02-26 05:00 | NUR ---
NURSE NOTES: PATIENT ASLEEP, NO DISTRESS.
[2019-02-26] MEDS: ceFAZolin sod 1 GM in D5W 55 ML IVPB SCH ×3 (05:29→21:56)
--- NOTE | 2019-02-26 07:19 | NUR ---
HAND-OFF: Report given to BRIGITTE VIRAMONTES RN.
--- NOTE | 2019-02-26 07:19 | NUR ---
NURSE NOTES: Patine awake, non verbal; on room air, no sign of distress and shortness of breath; no sing of chest pain; IV Right AC flushes well; side rails up x2, bed at lowest position, breaks engaged; will keep monitoring.
[2019-02-26 08:00] VITALS: BP 130/80
[2019-02-26] MEDS: Heparin 5000 units/ml inj SUBQ SCH ×2 (08:19→21:00)
[2019-02-26 08:38] LABS: BASOPHILS % (AUTO) 0.7 % (0.0-2.0); EOSINOPHILS % (AUTO) 3.5 % (0.0-3.0); HEMATOCRIT 34.7 % (42.0-52.0); HEMOGLOBIN 11.3 G/DL (14.2-18.0); LYMPHOCYTES % (AUTO) 19.3 % (20.0-45.0); MEAN CORPUSCULAR VOLUME 82 FL (80-99); MONOCYTES % (AUTO) 12.3 % (1.0-10.0); NEUTROPHILS % (AUTO) 64.2 % (45.0-75.0); PLATELET COUNT 182 K/UL (150-450); RED BLOOD COUNT 4.25 M/UL (4.70-6.10); RED CELL DISTRIBUTION WIDTH 14.5 % (11.6-14.8)
[2019-02-26 09:07] LABS: ANION GAP 10 mmol/L (5-15); BLOOD UREA NITROGEN 13 mg/dL (7-18); CALCIUM 8.6 MG/DL (8.5-10.1); CARBON DIOXIDE 24 MMOL/L (21-32); CHLORIDE 109 MMOL/L (98-107); POTASSIUM 3.8 MMOL/L (3.5-5.1); SODIUM 143 MMOL/L (136-145)
--- NOTE | 2019-02-26 09:52 | NUR ---
*-* INSURANCE *-* UPDATED CLINICALS HAVE BEEN FAXED TO: [facility] FAX ALL CLINICALS TO [phone]
--- NOTE | 2019-02-26 11:41 | Internal Med Progress Note ---
Subjective Date of Service: Feb 26, 2019 Physician Name Chicho Ring Attending Physician Librado Faria MD Current Medications Medications (Trade) Dose Ordered Sig/Brian Route PRN Reason Start Time Stop Time Status Last Admin Dose Admin Acetaminophen (Tylenol) 650 mg Q4H PRN ORAL fever 02/24/19 14:15 03/26/19 14:14 Albuterol/ Ipratropium (Albuterol/ Ipratropium) 3 ml Q4H PRN HHN Shortness of Breath 02/24/19 14:15 03/01/19 14:14 Amlodipine Besylate (Norvasc) 2.5 mg DAILY ORAL 02/25/19 09:00 03/27/19 08:59 02/26/19 08:18 Cefazolin Sodium 1 gm/Dextrose 55 ml @ 110 mls/hr EVERY 8 HOURS IVPB 02/25/19 14:00 03/04/19 13:59 02/26/19 05:29 Dextrose (Dextrose 50%) 25 ml Q30M PRN IV Hypoglycemia 02/24/19 14:15 03/26/19 14:14 Dextrose (Dextrose 50%) 50 ml Q30M PRN IV Hypoglycemia 02/24/19 14:15 03/26/19 14:14 Heparin Sodium (Porcine) (Heparin 5000 units/ml) 5,000 units EVERY 12 HOURS SUBQ 02/24/19 21:00 03/26/19 20:59 02/26/19 08:19 Levothyroxine Sodium (Synthroid) 75 mcg Q24H ORAL 02/25/19 06:30 03/27/19 06:29 02/26/19 05:30 Morphine Sulfate (Morphine Sulfate) 2 mg Q4H PRN IVP Moderate Pain (Pain Scale 4-6) 02/24/19 14:15 03/03/19 14:14 Nitroglycerin (Ntg) 0.4 mg Q5M PRN SL Prn Chest Pain 02/24/19 14:15 03/26/19 14:14 Ondansetron HCl (Zofran) 4 mg Q6H PRN IVP Nausea & Vomiting 02/24/19 14:15 03/26/19 14:14 Polyethylene Glycol (Miralax) 17 gm DAILYPRN PRN ORAL Constipation 02/24/19 14:15 03/26/19 14:14 Temazepam (Restoril) 15 mg HSPRN PRN ORAL Insomnia 02/24/19 14:15 03/03/19 14:14 Allergies: Coded Allergies: No Known Allergies (Unverified , 06/15/12) ROS Limited/Unobtainable: Yes Subjective 83 YO M admitted with pain in right leg. Now cellulitis of right leg. Cover for Int Jaswinder-Dr Faria. Objective Last Vital Signs Date Time Temp Pulse Resp B/P (MAP) Pulse Ox O2 Delivery O2 Flow Rate FiO2 02/26/19 09:00 Room Air 02/26/19 08:18 90 130/80 02/26/19 08:00 97.9 18 96 02/26/19 07:46 21 Laboratory Tests Test 02/26/19 07:30 White Blood Count 7.0 K/UL (4.8-10.8) Red Blood Count 4.25 M/UL (4.70-6.10) L Hemoglobin 11.3 G/DL (14.2-18.0) L Hematocrit 34.7 % (42.0-52.0) L Mean Corpuscular Volume 82 FL (80-99) Mean Corpuscular Hemoglobin 26.7 PG (27.0-31.0) L Mean Corpuscular Hemoglobin Concent 32.7 G/DL (32.0-36.0) Red Cell Distribution Width 14.5 % (11.6-14.8) Platelet Count 182 K/UL (150-450) Mean Platelet Volume 7.9 FL (6.5-10.1) Neutrophils (%) (Auto) 64.2 % (45.0-75.0) Lymphocytes (%) (Auto) 19.3 % (20.0-45.0) L Monocytes (%) (Auto) 12.3 % (1.0-10.0) H Eosinophils (%) (Auto) 3.5 % (0.0-3.0) H Basophils (%) (Auto) 0.7 % (0.0-2.0) Sodium Level 143 MMOL/L (136-145) Potassium Level 3.8 MMOL/L (3.5-5.1) Chloride Level 109 MMOL/L (98-107) H Carbon Dioxide Level 24 MMOL/L (21-32) Anion Gap 10 mmol/L (5-15) Blood Urea Nitrogen 13 mg/dL (7-18) Creatinine 1.0 MG/DL (0.55-1.30) Estimat Glomerular Filtration Rate mL/min (>60) Glucose Level 89 MG/DL (74-106) Calcium Level 8.6 MG/DL (8.5-10.1) Microbiology Date/Time Source Procedure Growth Status 02/24/19 09:30 Blood Blood Culture - Preliminary NO GROWTH AFTER 24 HOURS Resulted 02/24/19 09:30 Blood Blood Culture - Preliminary NO GROWTH AFTER 24 HOURS Resulted 02/24/19 17:00 Nasal Nares 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 Complete 02/24/19 17:00 Rectum VRE Culture - Final NO VANCOMYCIN RESISTANT ENTEROCOCCUS ... Complete 02/24/19 17:00 Rectum - Final NO CARBAPENEM-RESISTANT ENTEROBACTERI... Complete Intake and Output 02/25/19 02/26/19 18:59 06:59 Intake Total 1013.708 ml 55 ml Balance 1013.708 ml 55 ml Intake Oral 720 ml IV Total 293.708 ml 55 ml # Voids 3 2 Objective PHYSICAL EXAMINATION: GENERAL: The patient is well-developed and well-nourished white male, in no apparent distress. HEENT: Eyes, pupils equal and responsive to light and accommodation. Extraocular movements are intact. NECK: Supple without lymphadenopathy. CHEST: Lungs are clear to auscultation bilaterally without wheezes or rales. CARDIOVASCULAR: Regular rhythm and rate. S1 and S2 are normal without murmurs, rubs, or gallops. ABDOMEN: Soft, nontender, nondistended. Positive bowel sounds. No evidence of hepatosplenomegaly. Currently, no rebound or guarding noted. EXTREMITIES: Right extremity has 1+ pitting edema with erythema to the knee. Otherwise, extremities without clubbing, cyanosis, or edema. RECTAL/GENITAL: Not performed. NEUROLOGIC: Cranial nerves II through XII are grossly intact without focal deficits. Assessment/Plan Assessment/Plan ASSESSMENT: This is an 83-year-old male. 1. Right lower extremity cellulitis. 2. Leukocytosis. 3. Hypertension. 4. Coronary artery disease. 5. Congestive heart failure. 6. Chronic obstructive pulmonary disease. 7. History of developmental delay. 8. Hypothyroidism. TREATMENT: 1. Right leg cellulitis/leukocytosis. The patient has been started empirically on cefazolin by ID=Dr Herrera. Await results of blood cultures. 2. Hypertension. Continue amlodipine as above. 3. Coronary artery disease/congestive heart failure. 4. Chronic obstructive pulmonary disease. A Pulmonary consultation has been obtained with Dr. Yolanda Lazcano. 5. Hypothyroidism. Continue Levoxyl as above. 6. Developmental delay. Chicho Ring MD Feb 26, 2019 11:41
[2019-02-26 12:00] VITALS: BP 129/78
--- NOTE | 2019-02-26 14:10 | Infectious Diseases Prog Note ---
Assessment/Plan Assessment/Plan 83 yo male with PMHx of developmental delay. He has recurrent episodes of cellulits, Aphasia. CHF, HTN, CAD, COPD and hypothroid. He presented to the ED on 02/24/19 with 1 week of RLE swelling and erythema. Right lower Ext Cellultitis - Afebrile - Leukocytosis - Now resolved Developmental delay Recurrent episodes of cellulitis Aphasia CHF HTN CAD COPD Hypothroid PLAN: - Continue Cefazolin 1g Q8hr #2/7-10 - 02/25/19 S/P Cefepime #1 and Vancomycin #1 - Monitor CBC and Temps - leg elevation Thank you for this consult. We will continue to follow the patient during this hospitalization. Subjective Allergies: Coded Allergies: No Known Allergies (Unverified , 06/15/12) Subjective Afebrile No leukocytosis Cellulitis improved Objective Vital Signs Last 24 Hour Vital Signs Date Time Temp Pulse Resp B/P (MAP) Pulse Ox O2 Delivery O2 Flow Rate FiO2 02/26/19 12:00 97.9 84 19 129/78 (95) 98 02/26/19 09:00 Room Air 02/26/19 08:18 90 130/80 02/26/19 08:00 97.9 90 18 130/80 (97) 96 02/26/19 07:46 89 17 96 Room Air 21 02/26/19 04:52 97.8 88 18 139/86 (103) 96 02/26/19 01:02 87 02/26/19 00:47 99.1 103 18 140/84 (102) 94 02/25/19 21:00 Room Air 02/25/19 20:46 98.2 99 18 146/70 (95) 96 02/25/19 20:00 92 18 95 Room Air 21 02/25/19 16:00 98.6 92 18 106/55 (72) 97 Height (Feet): 5 Height (Inches): 2.00 Weight (Pounds): 186 Objective Gen: NAD HEENT: NCAT, MMM, EOMI LUNGS: CTAB, No W CARDS: RRR, S1, S2 ABD: Soft, NT, ND Ext: C/C/E, Pulses 2+ B/L (DP, Rad), Right lower Ext with Erythema and swelling improved SKIN: Warm/dry, No rashes Microbiology Date/Time Source Procedure Growth Status 02/24/19 09:30 Blood Blood Culture - Preliminary NO GROWTH AFTER 24 HOURS Resulted 02/24/19 09:30 Blood Blood Culture - Preliminary NO GROWTH AFTER 24 HOURS Resulted 02/24/19 17:00 Nasal Nares 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 Complete 02/24/19 17:00 Rectum VRE Culture - Final NO VANCOMYCIN RESISTANT ENTEROCOCCUS ... Complete 02/24/19 17:00 Rectum - Final NO CARBAPENEM-RESISTANT ENTEROBACTERI... Complete Laboratory Tests Test 02/26/19 07:30 White Blood Count 7.0 K/UL (4.8-10.8) Red Blood Count 4.25 M/UL (4.70-6.10) L Hemoglobin 11.3 G/DL (14.2-18.0) L Hematocrit 34.7 % (42.0-52.0) L Mean Corpuscular Volume 82 FL (80-99) Mean Corpuscular Hemoglobin 26.7 PG (27.0-31.0) L Mean Corpuscular Hemoglobin Concent 32.7 G/DL (32.0-36.0) Red Cell Distribution Width 14.5 % (11.6-14.8) Platelet Count 182 K/UL (150-450) Mean Platelet Volume 7.9 FL (6.5-10.1) Neutrophils (%) (Auto) 64.2 % (45.0-75.0) Lymphocytes (%) (Auto) 19.3 % (20.0-45.0) L Monocytes (%) (Auto) 12.3 % (1.0-10.0) H Eosinophils (%) (Auto) 3.5 % (0.0-3.0) H Basophils (%) (Auto) 0.7 % (0.0-2.0) Sodium Level 143 MMOL/L (136-145) Potassium Level 3.8 MMOL/L (3.5-5.1) Chloride Level 109 MMOL/L (98-107) H Carbon Dioxide Level 24 MMOL/L (21-32) Anion Gap 10 mmol/L (5-15) Blood Urea Nitrogen 13 mg/dL (7-18) Creatinine 1.0 MG/DL (0.55-1.30) Estimat Glomerular Filtration Rate mL/min (>60) Glucose Level 89 MG/DL (74-106) Calcium Level 8.6 MG/DL (8.5-10.1) Current Medications Medications (Trade) Dose Ordered Sig/Brian Route PRN Reason Start Time Stop Time Status Last Admin Dose Admin Acetaminophen (Tylenol) 650 mg Q4H PRN ORAL fever 02/24/19 14:15 03/26/19 14:14 Albuterol/ Ipratropium (Albuterol/ Ipratropium) 3 ml Q4H PRN HHN Shortness of Breath 02/24/19 14:15 03/01/19 14:14 Amlodipine Besylate (Norvasc) 2.5 mg DAILY ORAL 02/25/19 09:00 03/27/19 08:59 02/26/19 08:18 Cefazolin Sodium 1 gm/Dextrose 55 ml @ 110 mls/hr EVERY 8 HOURS IVPB 02/25/19 14:00 03/04/19 13:59 02/26/19 13:12 Dextrose (Dextrose 50%) 25 ml Q30M PRN IV Hypoglycemia 02/24/19 14:15 03/26/19 14:14 Dextrose (Dextrose 50%) 50 ml Q30M PRN IV Hypoglycemia 02/24/19 14:15 03/26/19 14:14 Heparin Sodium (Porcine) (Heparin 5000 units/ml) 5,000 units EVERY 12 HOURS SUBQ 02/24/19 21:00 03/26/19 20:59 02/26/19 08:19 Levothyroxine Sodium (Synthroid) 75 mcg Q24H ORAL 02/25/19 06:30 03/27/19 06:29 02/26/19 05:30 Morphine Sulfate (Morphine Sulfate) 2 mg Q4H PRN IVP Moderate Pain (Pain Scale 4-6) 02/24/19 14:15 03/03/19 14:14 Nitroglycerin (Ntg) 0.4 mg Q5M PRN SL Prn Chest Pain 02/24/19 14:15 03/26/19 14:14 Ondansetron HCl (Zofran) 4 mg Q6H PRN IVP Nausea & Vomiting 02/24/19 14:15 03/26/19 14:14 Polyethylene Glycol (Miralax) 17 gm DAILYPRN PRN ORAL Constipation 02/24/19 14:15 03/26/19 14:14 Temazepam (Restoril) 15 mg HSPRN PRN ORAL Insomnia 02/24/19 14:15 03/03/19 14:14 Paulo Herrera MD Feb 26, 2019 14:10
--- NOTE | 2019-02-26 14:47 | Pulmonology Progress Note ---
Assessment/Plan Problems: (1) Cellulitis of leg, right (2) COPD (chronic obstructive pulmonary disease) (3) Hypothyroidism (4) HTN (hypertension) (5) Developmental delay Assessment/Plan improving continue home meds and titrate the dose if needed check electrolytes on Ancef renal parameters improving urine electrolytes Subjective ROS Limited/Unobtainable: No Constitutional: Reports: no symptoms HEENT: Repors: no symptoms Allergies: Coded Allergies: No Known Allergies (Unverified , 06/15/12) Objective Last 24 Hour Vital Signs Date Time Temp Pulse Resp B/P (MAP) Pulse Ox O2 Delivery O2 Flow Rate FiO2 02/26/19 12:00 97.9 84 19 129/78 (95) 98 02/26/19 09:00 Room Air 02/26/19 08:18 90 130/80 02/26/19 08:00 97.9 90 18 130/80 (97) 96 02/26/19 07:46 89 17 96 Room Air 21 02/26/19 04:52 97.8 88 18 139/86 (103) 96 02/26/19 01:02 87 02/26/19 00:47 99.1 103 18 140/84 (102) 94 02/25/19 21:00 Room Air 02/25/19 20:46 98.2 99 18 146/70 (95) 96 02/25/19 20:00 92 18 95 Room Air 21 02/25/19 16:00 98.6 92 18 106/55 (72) 97 Intake and Output 02/25/19 02/26/19 18:59 06:59 Intake Total 1013.708 ml 55 ml Balance 1013.708 ml 55 ml Intake Oral 720 ml IV Total 293.708 ml 55 ml # Voids 3 2 General Appearance: WD/WN HEENT: normocephalic, atraumatic Respiratory/Chest: chest wall non-tender, lungs clear Cardiovascular: normal peripheral pulses, normal rate Abdomen: normal bowel sounds, soft, non tender Genitourinary: normal external genitalia Extremities: no clubbing Skin: no rash Microbiology Date/Time Source Procedure Growth Status 02/24/19 09:30 Blood Blood Culture - Preliminary NO GROWTH AFTER 24 HOURS Resulted 02/24/19 09:30 Blood Blood Culture - Preliminary NO GROWTH AFTER 24 HOURS Resulted 02/24/19 17:00 Nasal Nares 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 Complete 02/24/19 17:00 Rectum VRE Culture - Final NO VANCOMYCIN RESISTANT ENTEROCOCCUS ... Complete 02/24/19 17:00 Rectum - Final NO CARBAPENEM-RESISTANT ENTEROBACTERI... Complete Laboratory Tests 02/26/19 07:30: White Blood Count 7.0, Red Blood Count 4.25L, Hemoglobin 11.3L, Hematocrit 34.7L , Mean Corpuscular Volume 82, Mean Corpuscular Hemoglobin 26.7L, Mean Corpuscular Hemoglobin Concent 32.7, Red Cell Distribution Width 14.5, Platelet Count 182, Mean Platelet Volume 7.9, Neutrophils (%) (Auto) 64.2, Lymphocytes (% ) (Auto) 19.3L, Monocytes (%) (Auto) 12.3H, Eosinophils (%) (Auto) 3.5H, Basophils (%) (Auto) 0.7, Sodium Level 143, Potassium Level 3.8, Chloride Level 109H, Carbon Dioxide Level 24, Anion Gap 10, Blood Urea Nitrogen 13, Creatinine 1.0, Estimat Glomerular Filtration Rate , Glucose Level 89, Calcium Level 8.6 Current Medications Medications (Trade) Dose Ordered Sig/Brian Route PRN Reason Start Time Stop Time Status Last Admin Dose Admin Acetaminophen (Tylenol) 650 mg Q4H PRN ORAL fever 02/24/19 14:15 03/26/19 14:14 Albuterol/ Ipratropium (Albuterol/ Ipratropium) 3 ml Q4H PRN HHN Shortness of Breath 02/24/19 14:15 03/01/19 14:14 Amlodipine Besylate (Norvasc) 2.5 mg DAILY ORAL 02/25/19 09:00 03/27/19 08:59 02/26/19 08:18 Cefazolin Sodium 1 gm/Dextrose 55 ml @ 110 mls/hr EVERY 8 HOURS IVPB 02/25/19 14:00 03/04/19 13:59 02/26/19 13:12 Dextrose (Dextrose 50%) 25 ml Q30M PRN IV Hypoglycemia 02/24/19 14:15 03/26/19 14:14 Dextrose (Dextrose 50%) 50 ml Q30M PRN IV Hypoglycemia 02/24/19 14:15 03/26/19 14:14 Heparin Sodium (Porcine) (Heparin 5000 units/ml) 5,000 units EVERY 12 HOURS SUBQ 02/24/19 21:00 03/26/19 20:59 02/26/19 08:19 Levothyroxine Sodium (Synthroid) 75 mcg Q24H ORAL 02/25/19 06:30 03/27/19 06:29 02/26/19 05:30 Morphine Sulfate (Morphine Sulfate) 2 mg Q4H PRN IVP Moderate Pain (Pain Scale 4-6) 02/24/19 14:15 03/03/19 14:14 Nitroglycerin (Ntg) 0.4 mg Q5M PRN SL Prn Chest Pain 02/24/19 14:15 03/26/19 14:14 Ondansetron HCl (Zofran) 4 mg Q6H PRN IVP Nausea & Vomiting 02/24/19 14:15 03/26/19 14:14 Polyethylene Glycol (Miralax) 17 gm DAILYPRN PRN ORAL Constipation 02/24/19 14:15 03/26/19 14:14 Temazepam (Restoril) 15 mg HSPRN PRN ORAL Insomnia 02/24/19 14:15 03/03/19 14:14 Yolanda Lazcano MD Feb 26, 2019 14:47
--- NOTE | 2019-02-26 15:26 | Consultation ---
History of Present Illness General Date patient seen: Feb 26, 2019 Reason for Hospitalization: Skin Rash/Abscess Present Illness HPI 83 year old male with multiple medical comorbidities presented with lower extremity right edema / cellulitis, leukocytosis. right leg with edema, erythema, cellulitis. surgery called to evaluate. patient seen, chart reviewed , patient examined. difficult to obtain history from patient given medical condition Allergies: Coded Allergies: No Known Allergies (Unverified , 06/15/12) Medication History Scheduled Amlodipine Besylate* (Amlodipine Besylate*), 2.5 MG ORAL MORNING, (Reported) Aspirin* (Aspir 81*), 81 MG ORAL MORNING, (Reported) Furosemide* (Lasix*), 40 MG ORAL TWICE A DAY, (Reported) Levothyroxine Sodium* (Levothyroxine Sodium*), 75 MCG ORAL DAILY, (Reported) Potassium Chloride* (K-Dur*), 20 MEQ ORAL TWICE A DAY, (Reported) Discontinued Medications Cephalexin* (Keflex*), 500 MG ORAL EVERY 6 HOURS Discontinued Reason: Therapy completed Patient History Limited by: age, medical condition History Provided By: Medical Record, PMD Healthcare decision maker Resuscitation status Full Code Advanced Directive on File Past Medical/Surgical History Past Medical/Surgical History: (1) UTI (lower urinary tract infection) (2) Acute encephalopathy (3) Sepsis (4) Cellulitis of leg, right (5) COPD (chronic obstructive pulmonary disease) (6) Hypothyroidism (7) HTN (hypertension) (8) Developmental delay Review of Systems Review of Symptoms General ROS: no weight loss or fever Psychological ROS: no depression or mood changes, no memory loss Ophthalmic ROS: no visual changes or eye irritation ENT ROS: no nasal congestion, hearing loss, dizziness Allergy and Immunology ROS: no allergic symptoms or urticaria Hematological and Lymphatic ROS: no swollen glands, unusual bleeding or bruising Endocrine ROS: no polyuria, polydipsia, weight changes, temperature intolerance Respiratory ROS: no cough, shortness of breath, or wheezing Cardiovascular ROS: no chest pain or dyspnea on exertion Gastrointestinal ROS: denies abdominal pain, no bright red blood in stool. Musculoskeletal ROS: no myalgias or arthralgias Neurological ROS: no TIA or stroke symptoms Dermatological ROS: no new or changing skin lesions, rashes or pruritis difficult to obtain given history Physical Exam Physical Exam General appearance: alert, cooperative, no distress, appears stated age Head: Normocephalic, without obvious abnormality, atraumatic Eyes: conjunctivae/corneas clear. PERRL, EOM's intact. Fundi benign Throat: Lips, mucosa, and tongue normal. Teeth and gums normal Neck: supple, symmetrical, trachea midline, no adenopathy, thyroid: not enlarged, symmetric, no tenderness/mass/nodules, no carotid bruit and no JVD Lungs: clear to auscultation bilaterally Heart: regular rate and rhythm, S1, S2 normal, no murmur, click, rub or gallop Abdomen: soft, non-tender. Bowel sounds normal. No masses, no organomegaly Extremities: extremities RLE with edema and cellulitis. foot drop noted Pulses: 2+ and symmetric Skin: Skin color, texture, turgor normal. No rashes or lesions Neurologic: Grossly normal Last 24 Hour Vital Signs Date Time Temp Pulse Resp B/P (MAP) Pulse Ox O2 Delivery O2 Flow Rate FiO2 02/26/19 12:00 97.9 84 19 129/78 (95) 98 02/26/19 09:00 Room Air 02/26/19 08:18 90 130/80 02/26/19 08:00 97.9 90 18 130/80 (97) 96 02/26/19 07:46 89 17 96 Room Air 21 02/26/19 04:52 97.8 88 18 139/86 (103) 96 02/26/19 01:02 87 02/26/19 00:47 99.1 103 18 140/84 (102) 94 02/25/19 21:00 Room Air 02/25/19 20:46 98.2 99 18 146/70 (95) 96 02/25/19 20:00 92 18 95 Room Air 21 02/25/19 16:00 98.6 92 18 106/55 (72) 97 Intake and Output 02/25/19 02/26/19 19:00 07:00 Intake Total 1013.708 ml 55 ml Balance 1013.708 ml 55 ml Intake Oral 720 ml IV Total 293.708 ml 55 ml # Voids 3 2 Laboratory Tests Test 02/26/19 07:30 White Blood Count 7.0 K/UL (4.8-10.8) Red Blood Count 4.25 M/UL (4.70-6.10) L Hemoglobin 11.3 G/DL (14.2-18.0) L Hematocrit 34.7 % (42.0-52.0) L Mean Corpuscular Volume 82 FL (80-99) Mean Corpuscular Hemoglobin 26.7 PG (27.0-31.0) L Mean Corpuscular Hemoglobin Concent 32.7 G/DL (32.0-36.0) Red Cell Distribution Width 14.5 % (11.6-14.8) Platelet Count 182 K/UL (150-450) Mean Platelet Volume 7.9 FL (6.5-10.1) Neutrophils (%) (Auto) 64.2 % (45.0-75.0) Lymphocytes (%) (Auto) 19.3 % (20.0-45.0) L Monocytes (%) (Auto) 12.3 % (1.0-10.0) H Eosinophils (%) (Auto) 3.5 % (0.0-3.0) H Basophils (%) (Auto) 0.7 % (0.0-2.0) Sodium Level 143 MMOL/L (136-145) Potassium Level 3.8 MMOL/L (3.5-5.1) Chloride Level 109 MMOL/L (98-107) H Carbon Dioxide Level 24 MMOL/L (21-32) Anion Gap 10 mmol/L (5-15) Blood Urea Nitrogen 13 mg/dL (7-18) Creatinine 1.0 MG/DL (0.55-1.30) Estimat Glomerular Filtration Rate mL/min (>60) Glucose Level 89 MG/DL (74-106) Calcium Level 8.6 MG/DL (8.5-10.1) Height (Feet): 5 Height (Inches): 2.00 Weight (Pounds): 186 Medications Current Medications Medications (Trade) Dose Ordered Sig/Brian Route PRN Reason Start Time Stop Time Status Last Admin Dose Admin Acetaminophen (Tylenol) 650 mg Q4H PRN ORAL fever 02/24/19 14:15 03/26/19 14:14 Albuterol/ Ipratropium (Albuterol/ Ipratropium) 3 ml Q4H PRN HHN Shortness of Breath 02/24/19 14:15 03/01/19 14:14 Amlodipine Besylate (Norvasc) 2.5 mg DAILY ORAL 02/25/19 09:00 03/27/19 08:59 02/26/19 08:18 Cefazolin Sodium 1 gm/Dextrose 55 ml @ 110 mls/hr EVERY 8 HOURS IVPB 02/25/19 14:00 03/04/19 13:59 02/26/19 13:12 Dextrose (Dextrose 50%) 25 ml Q30M PRN IV Hypoglycemia 02/24/19 14:15 03/26/19 14:14 Dextrose (Dextrose 50%) 50 ml Q30M PRN IV Hypoglycemia 02/24/19 14:15 03/26/19 14:14 Heparin Sodium (Porcine) (Heparin 5000 units/ml) 5,000 units EVERY 12 HOURS SUBQ 02/24/19 21:00 03/26/19 20:59 02/26/19 08:19 Levothyroxine Sodium (Synthroid) 75 mcg Q24H ORAL 02/25/19 06:30 03/27/19 06:29 02/26/19 05:30 Morphine Sulfate (Morphine Sulfate) 2 mg Q4H PRN IVP Moderate Pain (Pain Scale 4-6) 02/24/19 14:15 03/03/19 14:14 Nitroglycerin (Ntg) 0.4 mg Q5M PRN SL Prn Chest Pain 02/24/19 14:15 03/26/19 14:14 Ondansetron HCl (Zofran) 4 mg Q6H PRN IVP Nausea & Vomiting 02/24/19 14:15 03/26/19 14:14 Polyethylene Glycol (Miralax) 17 gm DAILYPRN PRN ORAL Constipation 02/24/19 14:15 03/26/19 14:14 Temazepam (Restoril) 15 mg HSPRN PRN ORAL Insomnia 02/24/19 14:15 03/03/19 14:14 Assessment/Plan Problem List: (1) UTI (lower urinary tract infection) ICD Codes: N39.0 - Urinary tract infection, site not specified SNOMED: 7629800 (2) Acute encephalopathy ICD Codes: G93.40 - Encephalopathy, unspecified SNOMED: 66817081, 384265376 (3) Sepsis ICD Codes: A41.9 - Sepsis, unspecified organism SNOMED: 21372556 (4) Cellulitis of leg, right Assessment & Plan: right leg cellulitis from foot to mid leg. no abscess. no drainage. right foot drop noted patient not reliable for history Recommend plain films to ensure no injury will monitor with serial exams cont IV Abx as per ID thank you will follow with recs. ICD Codes: L03.115 - Cellulitis of right lower limb SNOMED: 973929572 (5) COPD (chronic obstructive pulmonary disease) ICD Codes: J44.9 - Chronic obstructive pulmonary disease, unspecified SNOMED: 72814855 (6) Hypothyroidism ICD Codes: E03.9 - Hypothyroidism, unspecified SNOMED: 18158851 (7) HTN (hypertension) ICD Codes: I10 - Essential (primary) hypertension SNOMED: 73568149 (8) Developmental delay ICD Codes: R62.50 - Unspecified lack of expected normal physiological development in childhood SNOMED: 173035348 Sly Greene Feb 26, 2019 15:26
--- NOTE | 2019-02-26 15:27 | NUR ---
CASE MANAGEMENT: REVIEW 02/26/2019 SI:CELLULITIS OF RIGHT LOWER LIMB T 97.9 HR 84 RR 19 B/P 129/78 SATS 98% ON RA CL 109 IS:CEFAZOLIN IV Q8H NORVASC PO QD SYNTHROID PO Q24H MED/SURG STATUS PLAN OF CARE: XRAY ANKLE AND FOOT HOME HEALTH PLANNING
--- NOTE | 2019-02-26 15:34 | NUR ---
DISCHARGE PLANNING: NOTE CLINICALS FAXED TO [facility] Addendum: 02/27/19 at 5342 by Kasey Dacosta CM [facility]ANG MANSFIELD AT [facility] PATIENT WILL BE ACCEPTED FOR HH UPON DC
[2019-02-26 16:00] VITALS: BP 130/80
--- NOTE | 2019-02-26 19:45 | NUR ---
NURSE NOTES: Received patient from EVON Bear. Patient is awake and non-verbal sitting on a wheelchair with caregiver at the bedside. Patient is breathing evenly and unlabored without any signs of distress, discomfort, and SOB on room air. No signs of pain noted at this time. Right AC 20g IV site is intact, clean, and dry. Bed is placed at the lowest level with alarms and brakes on. Side rails are up x 2 for safety and assistance to bed mobility. Skin is dry and warm to touch. Call light is placed within reach and enforced to the caregiver to press whenever the assistance is needed. Will continue to monitor.
--- NOTE | 2019-02-26 19:48 | NUR ---
HAND-OFF: Report given to Bob Pro/EVON Gatica.
[2019-02-26 20:00] VITALS: BP 158/86
[2019-02-27] VITALS: BP 128/71
[2019-02-27 04:00] VITALS: BP 144/77
[2019-02-27] MEDS: ceFAZolin sod 1 GM in D5W 55 ML IVPB SCH ×3 (05:33→22:31)
[2019-02-27 06:28] LABS: BASOPHILS % (AUTO) 0.8 % (0.0-2.0); EOSINOPHILS % (AUTO) 6.3 % (0.0-3.0); HEMATOCRIT 33.8 % (42.0-52.0); HEMOGLOBIN 11.1 G/DL (14.2-18.0); LYMPHOCYTES % (AUTO) 20.3 % (20.0-45.0); MEAN CORPUSCULAR VOLUME 81 FL (80-99); MONOCYTES % (AUTO) 14.2 % (1.0-10.0); NEUTROPHILS % (AUTO) 58.6 % (45.0-75.0); PLATELET COUNT 181 K/UL (150-450); RED BLOOD COUNT 4.15 M/UL (4.70-6.10); RED CELL DISTRIBUTION WIDTH 14.1 % (11.6-14.8); WHITE BLOOD COUNT 5.9 K/UL (4.8-10.8)
[2019-02-27 06:44] LABS: ANION GAP 8 mmol/L (5-15); BLOOD UREA NITROGEN 11 mg/dL (7-18); CALCIUM 8.7 MG/DL (8.5-10.1); CARBON DIOXIDE 25 MMOL/L (21-32); CHLORIDE 109 MMOL/L (98-107); POTASSIUM 4.1 MMOL/L (3.5-5.1); SODIUM 142 MMOL/L (136-145)
--- NOTE | 2019-02-27 07:18 | NUR ---
HAND-OFF: Report given to EVON Bear.
--- NOTE | 2019-02-27 07:35 | NUR ---
NURSE NOTES: Patient awake, non-verbal; on room air, no sign of distress and shortness of breath; IV Right AC flushes well; lower extremities swollen, elevated by pillows; bed at lowest position, side rails up x2, breaks engaged; bed alarm on; will keep monitoring.
[2019-02-27 08:00] VITALS: BP 129/80
[2019-02-27] MEDS: Heparin 5000 units/ml inj SUBQ SCH ×2 (08:34→20:44)
--- NOTE | 2019-02-27 11:02 | Infectious Diseases Prog Note ---
Assessment/Plan Assessment/Plan 83 yo male with PMHx of developmental delay. He has recurrent episodes of cellulits, Aphasia. CHF, HTN, CAD, COPD and hypothroid. He presented to the ED on 02/24/19 with 1 week of RLE swelling and erythema. Right lower Ext Cellultitis - Afebrile - Leukocytosis - Now resolved Developmental delay Recurrent episodes of cellulitis Aphasia CHF HTN CAD COPD Hypothroid PLAN: - Continue Cefazolin 1g Q8hr #3/7 On D/C could continue or switch to PO Keflex 500mg QID ( End date ) - 02/25/19 S/P Cefepime #1 and Vancomycin #1 - Monitor CBC and Temps - leg elevation Thank you for this consult. We will continue to follow the patient during this hospitalization. Subjective Allergies: Coded Allergies: No Known Allergies (Unverified , 06/15/12) Subjective Afebrile No leukocytosis Cellulitis resolving Objective Vital Signs Last 24 Hour Vital Signs Date Time Temp Pulse Resp B/P (MAP) Pulse Ox O2 Delivery O2 Flow Rate FiO2 02/27/19 09:00 Room Air 02/27/19 08:32 74 129/80 02/27/19 08:15 75 17 95 Room Air 21 02/27/19 08:00 97.7 74 18 129/80 (96) 96 02/27/19 04:00 98.3 80 20 144/77 (99) 96 02/27/19 00:00 97.2 78 18 128/71 (90) 97 02/26/19 21:00 Room Air 02/26/19 20:03 85 18 96 Room Air 21 02/26/19 20:00 98.8 84 18 158/86 (110) 93 02/26/19 16:00 97.7 80 18 130/80 (97) 98 02/26/19 12:00 97.9 84 19 129/78 (95) 98 Height (Feet): 5 Height (Inches): 2.00 Weight (Pounds): 186 Objective Gen: NAD HEENT: NCAT, MMM, EOMI LUNGS: CTAB, No W CARDS: RRR, S1, S2 ABD: Soft, NT, ND Ext: C/C/E, Pulses 2+ B/L (DP, Rad), Right lower Ext with Erythema and swelling improved Microbiology Date/Time Source Procedure Growth Status 02/24/19 17:00 Nasal Nares 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 Complete 02/24/19 17:00 Rectum VRE Culture - Final NO VANCOMYCIN RESISTANT ENTEROCOCCUS ... Complete 02/24/19 17:00 Rectum - Final NO CARBAPENEM-RESISTANT ENTEROBACTERI... Complete Laboratory Tests Test 02/27/19 05:50 White Blood Count 5.9 K/UL (4.8-10.8) Red Blood Count 4.15 M/UL (4.70-6.10) L Hemoglobin 11.1 G/DL (14.2-18.0) L Hematocrit 33.8 % (42.0-52.0) L Mean Corpuscular Volume 81 FL (80-99) Mean Corpuscular Hemoglobin 26.7 PG (27.0-31.0) L Mean Corpuscular Hemoglobin Concent 32.8 G/DL (32.0-36.0) Red Cell Distribution Width 14.1 % (11.6-14.8) Platelet Count 181 K/UL (150-450) Mean Platelet Volume 7.3 FL (6.5-10.1) Neutrophils (%) (Auto) 58.6 % (45.0-75.0) Lymphocytes (%) (Auto) 20.3 % (20.0-45.0) Monocytes (%) (Auto) 14.2 % (1.0-10.0) H Eosinophils (%) (Auto) 6.3 % (0.0-3.0) H Basophils (%) (Auto) 0.8 % (0.0-2.0) Sodium Level 142 MMOL/L (136-145) Potassium Level 4.1 MMOL/L (3.5-5.1) Chloride Level 109 MMOL/L (98-107) H Carbon Dioxide Level 25 MMOL/L (21-32) Anion Gap 8 mmol/L (5-15) Blood Urea Nitrogen 11 mg/dL (7-18) Creatinine 1.0 MG/DL (0.55-1.30) Estimat Glomerular Filtration Rate mL/min (>60) Glucose Level 94 MG/DL (74-106) Calcium Level 8.7 MG/DL (8.5-10.1) Current Medications Medications (Trade) Dose Ordered Sig/Brian Route PRN Reason Start Time Stop Time Status Last Admin Dose Admin Acetaminophen (Tylenol) 650 mg Q4H PRN ORAL fever 02/24/19 14:15 03/26/19 14:14 Albuterol/ Ipratropium (Albuterol/ Ipratropium) 3 ml Q4H PRN HHN Shortness of Breath 02/24/19 14:15 03/01/19 14:14 Amlodipine Besylate (Norvasc) 2.5 mg DAILY ORAL 02/25/19 09:00 03/27/19 08:59 02/27/19 08:32 Cefazolin Sodium 1 gm/Dextrose 55 ml @ 110 mls/hr EVERY 8 HOURS IVPB 02/25/19 14:00 03/04/19 13:59 02/27/19 05:33 Dextrose (Dextrose 50%) 25 ml Q30M PRN IV Hypoglycemia 02/24/19 14:15 03/26/19 14:14 Dextrose (Dextrose 50%) 50 ml Q30M PRN IV Hypoglycemia 02/24/19 14:15 03/26/19 14:14 Heparin Sodium (Porcine) (Heparin 5000 units/ml) 5,000 units EVERY 12 HOURS SUBQ 02/24/19 21:00 03/26/19 20:59 02/27/19 08:34 Levothyroxine Sodium (Synthroid) 75 mcg Q24H ORAL 02/25/19 06:30 03/27/19 06:29 02/27/19 05:42 Morphine Sulfate (Morphine Sulfate) 2 mg Q4H PRN IVP Moderate Pain (Pain Scale 4-6) 02/24/19 14:15 03/03/19 14:14 Nitroglycerin (Ntg) 0.4 mg Q5M PRN SL Prn Chest Pain 02/24/19 14:15 03/26/19 14:14 Ondansetron HCl (Zofran) 4 mg Q6H PRN IVP Nausea & Vomiting 02/24/19 14:15 03/26/19 14:14 Polyethylene Glycol (Miralax) 17 gm DAILYPRN PRN ORAL Constipation 02/24/19 14:15 03/26/19 14:14 Temazepam (Restoril) 15 mg HSPRN PRN ORAL Insomnia 02/24/19 14:15 03/03/19 14:14 Paulo Herrera MD Feb 27, 2019 11:02
--- NOTE | 2019-02-27 11:04 | NUR ---
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
--- NOTE | 2019-02-27 11:39 | NUR ---
RADIOLOGY DEPT., RIGHT TIB/FIB, ANKLE AND FOOT X-RAYS COMPLETED.-P.DYE
--- NOTE | 2019-02-27 11:50 | Diagnostic Imaging Report ---
Indication: Right leg pain Technique: 2 views of the right tibia and fibula Comparison: none Findings: No acute fractures. No dislocations. No radiopaque foreign body. Joint spaces are preserved Impression: No acute process
--- NOTE | 2019-02-27 11:57 | Diagnostic Imaging Report ---
Indication: Pain, cellulitis Technique: 2 views of the right ankle Comparison: none Findings: Exam is limited due to the availability of only 2 views. There is a small calcaneal spur. No definite acute fractures. No dislocations. No definite osseous erosions or osteolytic lesions. Impression: Limited exam, as described No definite findings to suggest acute osteomyelitis. Note, however, limited sensitivity of plain radiographs for such. Consider MRI for further evaluation if there is high clinical suspicion
--- NOTE | 2019-02-27 11:58 | Diagnostic Imaging Report ---
Indication: Pain, cellulitis Technique: 2 views right foot Comparison: 05/14/2018 Findings: Exam is limited due to the availability of only 2 views. No definite acute fractures. No dislocations. Again demonstrated is bunion formation of the first metatarsophalangeal joint. The bones are osteoporotic. There is rarefaction of the base of the fifth metatarsal. However, this is better seen on a concomitant ankle radiograph and appears grossly unremarkable. There are no definite osteolytic lesions. No definite osseous erosions. There is questionably a soft tissue defect at the tip of the second toe. Impression: Questionable distal second toe soft tissue defect. Correlate with clinical findings No definite findings to suggest acute osteomyelitis. Note, however, limited sensitivity of plain radiographs for such. Consider MRI for better characterization if there is high clinical suspicion
--- NOTE | 2019-02-27 12:57 | Pulmonology Progress Note ---
Assessment/Plan Problems: (1) Cellulitis of leg, right (2) COPD (chronic obstructive pulmonary disease) (3) Hypothyroidism (4) HTN (hypertension) (5) Developmental delay Assessment/Plan improving eating well all reviewed continue home meds and titrate the dose if needed check electrolytes on Ancef renal parameters improving urine electrolytes Subjective ROS Limited/Unobtainable: No Constitutional: Reports: no symptoms HEENT: Repors: no symptoms Respiratory: Reports: no symptoms Allergies: Coded Allergies: No Known Allergies (Unverified , 06/15/12) Objective Last 24 Hour Vital Signs Date Time Temp Pulse Resp B/P (MAP) Pulse Ox O2 Delivery O2 Flow Rate FiO2 02/27/19 09:00 Room Air 02/27/19 08:32 74 129/80 02/27/19 08:15 75 17 95 Room Air 21 02/27/19 08:00 97.7 74 18 129/80 (96) 96 02/27/19 04:00 98.3 80 20 144/77 (99) 96 02/27/19 00:00 97.2 78 18 128/71 (90) 97 02/26/19 21:00 Room Air 02/26/19 20:03 85 18 96 Room Air 21 02/26/19 20:00 98.8 84 18 158/86 (110) 93 02/26/19 16:00 97.7 80 18 130/80 (97) 98 Intake and Output 02/26/19 02/27/19 18:59 06:59 Intake Total 1110 ml 310 ml Balance 1110 ml 310 ml Intake Oral 1000 ml 200 ml IV Total 110 ml 110 ml # Voids 5 1 # Bowel Movements 1 1 Objective General Appearance: WD/WN HEENT: normocephalic, atraumatic Respiratory/Chest: chest wall non-tender, lungs clear Cardiovascular: normal peripheral pulses, normal rate Abdomen: normal bowel sounds, soft, non tender Genitourinary: normal external genitalia Extremities: no clubbing Skin: no rash Microbiology Date/Time Source Procedure Growth Status 02/24/19 17:00 Nasal Nares 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 Complete 02/24/19 17:00 Rectum VRE Culture - Final NO VANCOMYCIN RESISTANT ENTEROCOCCUS ... Complete 02/24/19 17:00 Rectum - Final NO CARBAPENEM-RESISTANT ENTEROBACTERI... Complete Laboratory Tests 02/27/19 05:50: White Blood Count 5.9, Red Blood Count 4.15L, Hemoglobin 11.1L, Hematocrit 33.8L , Mean Corpuscular Volume 81, Mean Corpuscular Hemoglobin 26.7L, Mean Corpuscular Hemoglobin Concent 32.8, Red Cell Distribution Width 14.1, Platelet Count 181, Mean Platelet Volume 7.3, Neutrophils (%) (Auto) 58.6, Lymphocytes (% ) (Auto) 20.3, Monocytes (%) (Auto) 14.2H, Eosinophils (%) (Auto) 6.3H, Basophils (%) (Auto) 0.8, Sodium Level 142, Potassium Level 4.1, Chloride Level 109H, Carbon Dioxide Level 25, Anion Gap 8, Blood Urea Nitrogen 11, Creatinine 1.0, Estimat Glomerular Filtration Rate , Glucose Level 94, Calcium Level 8.7 Current Medications Medications (Trade) Dose Ordered Sig/Brian Route PRN Reason Start Time Stop Time Status Last Admin Dose Admin Acetaminophen (Tylenol) 650 mg Q4H PRN ORAL fever 02/24/19 14:15 03/26/19 14:14 Albuterol/ Ipratropium (Albuterol/ Ipratropium) 3 ml Q4H PRN HHN Shortness of Breath 02/24/19 14:15 03/01/19 14:14 Amlodipine Besylate (Norvasc) 2.5 mg DAILY ORAL 02/25/19 09:00 03/27/19 08:59 02/27/19 08:32 Cefazolin Sodium 1 gm/Dextrose 55 ml @ 110 mls/hr EVERY 8 HOURS IVPB 02/25/19 14:00 03/04/19 13:59 02/27/19 05:33 Dextrose (Dextrose 50%) 25 ml Q30M PRN IV Hypoglycemia 02/24/19 14:15 03/26/19 14:14 Dextrose (Dextrose 50%) 50 ml Q30M PRN IV Hypoglycemia 02/24/19 14:15 03/26/19 14:14 Heparin Sodium (Porcine) (Heparin 5000 units/ml) 5,000 units EVERY 12 HOURS SUBQ 02/24/19 21:00 03/26/19 20:59 02/27/19 08:34 Levothyroxine Sodium (Synthroid) 75 mcg Q24H ORAL 02/25/19 06:30 03/27/19 06:29 02/27/19 05:42 Morphine Sulfate (Morphine Sulfate) 2 mg Q4H PRN IVP Moderate Pain (Pain Scale 4-6) 02/24/19 14:15 03/03/19 14:14 Nitroglycerin (Ntg) 0.4 mg Q5M PRN SL Prn Chest Pain 02/24/19 14:15 03/26/19 14:14 Ondansetron HCl (Zofran) 4 mg Q6H PRN IVP Nausea & Vomiting 02/24/19 14:15 03/26/19 14:14 Polyethylene Glycol (Miralax) 17 gm DAILYPRN PRN ORAL Constipation 02/24/19 14:15 03/26/19 14:14 Temazepam (Restoril) 15 mg HSPRN PRN ORAL Insomnia 02/24/19 14:15 03/03/19 14:14 Yolanda Lazcano MD Feb 27, 2019 12:57
--- NOTE | 2019-02-27 13:49 | Surgery Progress Note ---
Surgery Progress Note Subjective Additional Comments no acute events. plain films reviewed. no acute process labs okay exam stable patient looks okay overall Objective Last 24 Hour Vital Signs Date Time Temp Pulse Resp B/P (MAP) Pulse Ox O2 Delivery O2 Flow Rate FiO2 02/27/19 09:00 Room Air 02/27/19 08:32 74 129/80 02/27/19 08:15 75 17 95 Room Air 21 02/27/19 08:00 97.7 74 18 129/80 (96) 96 02/27/19 04:00 98.3 80 20 144/77 (99) 96 02/27/19 00:00 97.2 78 18 128/71 (90) 97 02/26/19 21:00 Room Air 02/26/19 20:03 85 18 96 Room Air 21 02/26/19 20:00 98.8 84 18 158/86 (110) 93 02/26/19 16:00 97.7 80 18 130/80 (97) 98 I&O Intake and Output 02/26/19 02/27/19 18:59 06:59 Intake Total 1110 ml 310 ml Balance 1110 ml 310 ml Intake Oral 1000 ml 200 ml IV Total 110 ml 110 ml # Voids 5 1 # Bowel Movements 1 1 Dressing: dry Wound: clean Cardiovascular: RSR Abdomen: flat, non-tender, present bowel sounds Extremities: edema, no tenderness, no cyanosis Laboratory Tests Test 02/27/19 05:50 White Blood Count 5.9 K/UL (4.8-10.8) Red Blood Count 4.15 M/UL (4.70-6.10) L Hemoglobin 11.1 G/DL (14.2-18.0) L Hematocrit 33.8 % (42.0-52.0) L Mean Corpuscular Volume 81 FL (80-99) Mean Corpuscular Hemoglobin 26.7 PG (27.0-31.0) L Mean Corpuscular Hemoglobin Concent 32.8 G/DL (32.0-36.0) Red Cell Distribution Width 14.1 % (11.6-14.8) Platelet Count 181 K/UL (150-450) Mean Platelet Volume 7.3 FL (6.5-10.1) Neutrophils (%) (Auto) 58.6 % (45.0-75.0) Lymphocytes (%) (Auto) 20.3 % (20.0-45.0) Monocytes (%) (Auto) 14.2 % (1.0-10.0) H Eosinophils (%) (Auto) 6.3 % (0.0-3.0) H Basophils (%) (Auto) 0.8 % (0.0-2.0) Sodium Level 142 MMOL/L (136-145) Potassium Level 4.1 MMOL/L (3.5-5.1) Chloride Level 109 MMOL/L (98-107) H Carbon Dioxide Level 25 MMOL/L (21-32) Anion Gap 8 mmol/L (5-15) Blood Urea Nitrogen 11 mg/dL (7-18) Creatinine 1.0 MG/DL (0.55-1.30) Estimat Glomerular Filtration Rate mL/min (>60) Glucose Level 94 MG/DL (74-106) Calcium Level 8.7 MG/DL (8.5-10.1) Plan Problems: (1) UTI (lower urinary tract infection) (2) Acute encephalopathy (3) Sepsis (4) Cellulitis of leg, right Assessment & Plan: right leg cellulitis from foot to mid leg. no abscess. no drainage. right foot drop noted patient not reliable for history plain films reviewed no acute process will monitor with serial exams cont IV Abx as per ID thank you will follow with recs. (5) COPD (chronic obstructive pulmonary disease) (6) Hypothyroidism (7) HTN (hypertension) (8) Developmental delay Sly Greene Feb 27, 2019 13:49
--- NOTE | 2019-02-27 14:00 | NUR ---
*-* INSURANCE *-* UPDATED CLINICALS AND REVIEWS HAVE BEEN FAXED TO: [employer] [facility] FAX ALL CLINICALS TO [phone]
[2019-02-27 16:00] VITALS: BP 140/80
--- NOTE | 2019-02-27 17:01 | Internal Med Progress Note ---
Subjective Date of Service: Feb 27, 2019 Physician Name Chicho Ring Attending Physician Librado Faria MD Current Medications Medications (Trade) Dose Ordered Sig/Brian Route PRN Reason Start Time Stop Time Status Last Admin Dose Admin Acetaminophen (Tylenol) 650 mg Q4H PRN ORAL fever 02/24/19 14:15 03/26/19 14:14 Albuterol/ Ipratropium (Albuterol/ Ipratropium) 3 ml Q4H PRN HHN Shortness of Breath 02/24/19 14:15 03/01/19 14:14 Amlodipine Besylate (Norvasc) 2.5 mg DAILY ORAL 02/25/19 09:00 03/27/19 08:59 02/27/19 08:32 Cefazolin Sodium 1 gm/Dextrose 55 ml @ 110 mls/hr EVERY 8 HOURS IVPB 02/25/19 14:00 03/04/19 13:59 02/27/19 13:19 Dextrose (Dextrose 50%) 25 ml Q30M PRN IV Hypoglycemia 02/24/19 14:15 03/26/19 14:14 Dextrose (Dextrose 50%) 50 ml Q30M PRN IV Hypoglycemia 02/24/19 14:15 03/26/19 14:14 Heparin Sodium (Porcine) (Heparin 5000 units/ml) 5,000 units EVERY 12 HOURS SUBQ 02/24/19 21:00 03/26/19 20:59 02/27/19 08:34 Levothyroxine Sodium (Synthroid) 75 mcg Q24H ORAL 02/25/19 06:30 03/27/19 06:29 02/27/19 05:42 Morphine Sulfate (Morphine Sulfate) 2 mg Q4H PRN IVP Moderate Pain (Pain Scale 4-6) 02/24/19 14:15 03/03/19 14:14 Nitroglycerin (Ntg) 0.4 mg Q5M PRN SL Prn Chest Pain 02/24/19 14:15 03/26/19 14:14 Ondansetron HCl (Zofran) 4 mg Q6H PRN IVP Nausea & Vomiting 02/24/19 14:15 03/26/19 14:14 Polyethylene Glycol (Miralax) 17 gm DAILYPRN PRN ORAL Constipation 02/24/19 14:15 03/26/19 14:14 Temazepam (Restoril) 15 mg HSPRN PRN ORAL Insomnia 02/24/19 14:15 03/03/19 14:14 Allergies: Coded Allergies: No Known Allergies (Unverified , 06/15/12) ROS Limited/Unobtainable: Yes Subjective 83 YO M admitted with pain in right leg. Now cellulitis of right leg. Cover for Int Jaswinder-Dr Faria. Objective Last Vital Signs Date Time Temp Pulse Resp B/P (MAP) Pulse Ox O2 Delivery O2 Flow Rate FiO2 02/27/19 16:00 98.7 79 18 140/80 (100) 97 02/27/19 09:00 Room Air 02/27/19 08:15 21 Laboratory Tests Test 02/27/19 05:50 White Blood Count 5.9 K/UL (4.8-10.8) Red Blood Count 4.15 M/UL (4.70-6.10) L Hemoglobin 11.1 G/DL (14.2-18.0) L Hematocrit 33.8 % (42.0-52.0) L Mean Corpuscular Volume 81 FL (80-99) Mean Corpuscular Hemoglobin 26.7 PG (27.0-31.0) L Mean Corpuscular Hemoglobin Concent 32.8 G/DL (32.0-36.0) Red Cell Distribution Width 14.1 % (11.6-14.8) Platelet Count 181 K/UL (150-450) Mean Platelet Volume 7.3 FL (6.5-10.1) Neutrophils (%) (Auto) 58.6 % (45.0-75.0) Lymphocytes (%) (Auto) 20.3 % (20.0-45.0) Monocytes (%) (Auto) 14.2 % (1.0-10.0) H Eosinophils (%) (Auto) 6.3 % (0.0-3.0) H Basophils (%) (Auto) 0.8 % (0.0-2.0) Sodium Level 142 MMOL/L (136-145) Potassium Level 4.1 MMOL/L (3.5-5.1) Chloride Level 109 MMOL/L (98-107) H Carbon Dioxide Level 25 MMOL/L (21-32) Anion Gap 8 mmol/L (5-15) Blood Urea Nitrogen 11 mg/dL (7-18) Creatinine 1.0 MG/DL (0.55-1.30) Estimat Glomerular Filtration Rate mL/min (>60) Glucose Level 94 MG/DL (74-106) Calcium Level 8.7 MG/DL (8.5-10.1) Intake and Output 02/26/19 02/27/19 18:59 06:59 Intake Total 1110 ml 310 ml Balance 1110 ml 310 ml Intake Oral 1000 ml 200 ml IV Total 110 ml 110 ml # Voids 5 1 # Bowel Movements 1 1 Objective PHYSICAL EXAMINATION: GENERAL: The patient is well-developed and well-nourished white male, in no apparent distress. HEENT: Eyes, pupils equal and responsive to light and accommodation. Extraocular movements are intact. NECK: Supple without lymphadenopathy. CHEST: Lungs are clear to auscultation bilaterally without wheezes or rales. CARDIOVASCULAR: Regular rhythm and rate. S1 and S2 are normal without murmurs, rubs, or gallops. ABDOMEN: Soft, nontender, nondistended. Positive bowel sounds. No evidence of hepatosplenomegaly. Currently, no rebound or guarding noted. EXTREMITIES: Right extremity has 1+ pitting edema with erythema to the knee. Otherwise, extremities without clubbing, cyanosis, or edema. RECTAL/GENITAL: Not performed. NEUROLOGIC: Cranial nerves II through XII are grossly intact without focal deficits. Assessment/Plan Assessment/Plan ASSESSMENT: This is an 83-year-old male. 1. Right lower extremity cellulitis. 2. Leukocytosis. 3. Hypertension. 4. Coronary artery disease. 5. Congestive heart failure. 6. Chronic obstructive pulmonary disease. 7. History of developmental delay. 8. Hypothyroidism. TREATMENT: 1. Right leg cellulitis/leukocytosis. The patient has been started empirically on cefazolin by ID=Dr Herrera. Await results of blood cultures. 2. Hypertension. Continue amlodipine as above. 3. Coronary artery disease/congestive heart failure. 4. Chronic obstructive pulmonary disease. A Pulmonary consultation has been obtained with Dr. Yolanda Lazcano. 5. Hypothyroidism. Continue Levoxyl as above. 6. Developmental delay. Chicho Ring MD Feb 27, 2019 17:01
--- NOTE | 2019-02-27 19:34 | NUR ---
HAND-OFF: Report given to EVON Vasques.
--- NOTE | 2019-02-27 19:50 | NUR ---
NURSE NOTES: Received patient in bed, awake, non verbal, on room air, no acute distress noted, VSS, afebrile, call light is within reach, bed is in low position, locked, alarm is on. Will continue to monitor for safety and comfort.
[2019-02-27 20:45] VITALS: BP 138/78
--- NOTE | 2019-02-27 23:13 | Diagnostic Imaging Report ---
APPROVED REPORT CPT Code: 65008 Present Symptoms Comments: BILATERAL LEGS PAIN AND SWELLING. BILATERAL: Imaging reveals a patent deep venous system bilaterally. There is no evidence of thrombus within the femoral, popliteal or tibial segments. The greater saphenous veins are also within normal limits. Doppler indicates normal spontaneous flow within these segments.
[2019-02-28] VITALS: BP 135/67
[2019-02-28 04:00] VITALS: BP 130/76
[2019-02-28] MEDS: ceFAZolin sod 1 GM in D5W 55 ML IVPB SCH ×2 (05:20→13:10)
[2019-02-28 05:27] VITALS: BP 130/76
--- NOTE | 2019-02-28 07:30 | NUR ---
HAND-OFF: Report given to Pastora BARNARD.
--- NOTE | 2019-02-28 07:35 | NUR ---
NURSE NOTES: received report from EVON Melvin. patient in bed. disoriented. simple verbal communication. no respiratory distress on room air. no c/o pain at this time. offered urinal. IV RH heplock intact. bed in the lowest position. call light within reach. alarm on. will continue plan of care.
[2019-02-28 08:00] VITALS: BP 154/84
[2019-02-28] MEDS: Heparin 5000 units/ml inj SUBQ SCH (08:21)
[2019-02-28 09:05] LABS: ANION GAP 9 mmol/L (5-15); BLOOD UREA NITROGEN 11 mg/dL (7-18); CALCIUM 8.8 MG/DL (8.5-10.1); CARBON DIOXIDE 24 MMOL/L (21-32); CHLORIDE 109 MMOL/L (98-107); POTASSIUM 3.6 MMOL/L (3.5-5.1); SODIUM 142 MMOL/L (136-145)
[2019-02-28 09:06] LABS: EOSINOPHILS % (AUTO) 6.1 % (0.0-3.0); HEMATOCRIT 33.4 % (42.0-52.0); HEMOGLOBIN 11.2 G/DL (14.2-18.0); LYMPHOCYTES % (AUTO) 17.7 % (20.0-45.0); MEAN CORPUSCULAR VOLUME 81 FL (80-99); MONOCYTES % (AUTO) 13.4 % (1.0-10.0); NEUTROPHILS % (AUTO) 61.8 % (45.0-75.0); PLATELET COUNT 186 K/UL (150-450); RED BLOOD COUNT 4.12 M/UL (4.70-6.10); RED CELL DISTRIBUTION WIDTH 14.2 % (11.6-14.8); WHITE BLOOD COUNT 6.8 K/UL (4.8-10.8)
--- NOTE | 2019-02-28 09:25 | NUR ---
RD ASSESSMENT & RECOMMENDATIONS SEE CARE ACTIVITY FOR COMPLETE ASSESSMENT DAILY ESTIMATED NEEDS: Needs based on Cardiac 73kg adj 25-30 kcals/kg 8999-6390 total kcals 1-1.2 g protein/kg 73-88 g total protein 25-30 mL/kg 6792-2722 total fluid mLs NUTRITION DIAGNOSIS: 1) Decreased sodium needs r/t clinical status, cardiac history AEB pt h/o CHF and HTN, BP elev (154/84) 2) Chewing difficulty r/t developmental delay as evidenced by pt on [facility] soft chopped texture diet w/ good intake. CURRENT DIET: Regular ms chopped diet PO DIET RECOMMENDATIONS: LOW NA DIET (texture per TELECOMMUNICATION LINES REPAIRER) ADDITIONAL RECOMMENDATIONS: 1) TELECOMMUNICATION LINES REPAIRER eval for appropriate texture 2) Cont to monitor po intake; need for 1:1 or added supplements/ snacks 3) Obtain a standing weight as able / calibrated bed scale -
--- NOTE | 2019-02-28 11:16 | NUR ---
*-* INSURANCE *-* UPDATED CLINICALS HAVE BEEN FAXED TO: [employer] [facility] FAX ALL CLINICALS TO [phone]
[2019-02-28 12:00] VITALS: BP 141/82
--- NOTE | 2019-02-28 12:26 | Infectious Diseases Prog Note ---
Assessment/Plan Assessment/Plan 83 yo male with PMHx of developmental delay. He has recurrent episodes of cellulits, Aphasia. CHF, HTN, CAD, COPD and hypothroid. He presented to the ED on 02/24/19 with 1 week of RLE swelling and erythema. Right lower Ext Cellultitis - Afebrile - Leukocytosis - Now resolved Developmental delay Recurrent episodes of cellulitis Aphasia CHF HTN CAD COPD Hypothroid PLAN: - Continue Cefazolin 1g Q8hr #4/7 On D/C could continue or switch to PO Keflex 500mg QID ( End date ) - 02/25/19 S/P Cefepime #1 and Vancomycin #1 - Monitor CBC and Temps - leg elevation Thank you for this consult. We will continue to follow the patient during this hospitalization. Subjective Allergies: Coded Allergies: No Known Allergies (Unverified , 06/15/12) Subjective LINDA Afebrile No leukocytosis Cellulitis resolving Objective Vital Signs Last 24 Hour Vital Signs Date Time Temp Pulse Resp B/P (MAP) Pulse Ox O2 Delivery O2 Flow Rate FiO2 02/28/19 09:00 Room Air 02/28/19 08:23 81 18 94 Room Air 21 02/28/19 08:20 83 154/84 02/28/19 08:00 97.9 83 18 154/84 (107) 95 02/28/19 05:27 98.2 84 20 130/76 (94) 02/28/19 04:00 98.2 84 20 130/76 (94) 02/28/19 00:00 99.1 86 20 135/67 (89) 02/27/19 21:32 Room Air 02/27/19 20:45 98.7 87 20 138/78 (98) 02/27/19 20:36 85 18 96 Room Air 21 02/27/19 16:00 98.7 79 18 140/80 (100) 97 Height (Feet): 5 Height (Inches): 2.00 Weight (Pounds): 186 Objective Gen: NAD HEENT: NCAT, MMM, EOMI LUNGS: CTAB, No W CARDS: RRR, S1, S2 ABD: Soft, NT, ND Ext: C/C/E, Pulses 2+ B/L (DP, Rad), Right lower Ext with Erythema and swelling resolving Laboratory Tests Test 02/28/19 08:11 White Blood Count 6.8 K/UL (4.8-10.8) Red Blood Count 4.12 M/UL (4.70-6.10) L Hemoglobin 11.2 G/DL (14.2-18.0) L Hematocrit 33.4 % (42.0-52.0) L Mean Corpuscular Volume 81 FL (80-99) Mean Corpuscular Hemoglobin 27.1 PG (27.0-31.0) Mean Corpuscular Hemoglobin Concent 33.4 G/DL (32.0-36.0) Red Cell Distribution Width 14.2 % (11.6-14.8) Platelet Count 186 K/UL (150-450) Mean Platelet Volume 7.6 FL (6.5-10.1) Neutrophils (%) (Auto) 61.8 % (45.0-75.0) Lymphocytes (%) (Auto) 17.7 % (20.0-45.0) L Monocytes (%) (Auto) 13.4 % (1.0-10.0) H Eosinophils (%) (Auto) 6.1 % (0.0-3.0) H Basophils (%) (Auto) 1.0 % (0.0-2.0) Sodium Level 142 MMOL/L (136-145) Potassium Level 3.6 MMOL/L (3.5-5.1) Chloride Level 109 MMOL/L (98-107) H Carbon Dioxide Level 24 MMOL/L (21-32) Anion Gap 9 mmol/L (5-15) Blood Urea Nitrogen 11 mg/dL (7-18) Creatinine 1.0 MG/DL (0.55-1.30) Estimat Glomerular Filtration Rate mL/min (>60) Glucose Level 132 MG/DL (74-106) H Calcium Level 8.8 MG/DL (8.5-10.1) Current Medications Medications (Trade) Dose Ordered Sig/Brian Route PRN Reason Start Time Stop Time Status Last Admin Dose Admin Acetaminophen (Tylenol) 650 mg Q4H PRN ORAL fever 02/24/19 14:15 03/26/19 14:14 Albuterol/ Ipratropium (Albuterol/ Ipratropium) 3 ml Q4H PRN HHN Shortness of Breath 02/24/19 14:15 03/01/19 14:14 Amlodipine Besylate (Norvasc) 2.5 mg DAILY ORAL 02/25/19 09:00 03/27/19 08:59 02/28/19 08:20 Cefazolin Sodium 1 gm/Dextrose 55 ml @ 110 mls/hr EVERY 8 HOURS IVPB 02/25/19 14:00 03/04/19 13:59 02/28/19 05:20 Dextrose (Dextrose 50%) 25 ml Q30M PRN IV Hypoglycemia 02/24/19 14:15 03/26/19 14:14 Dextrose (Dextrose 50%) 50 ml Q30M PRN IV Hypoglycemia 02/24/19 14:15 03/26/19 14:14 Heparin Sodium (Porcine) (Heparin 5000 units/ml) 5,000 units EVERY 12 HOURS SUBQ 02/24/19 21:00 03/26/19 20:59 02/28/19 08:21 Levothyroxine Sodium (Synthroid) 75 mcg Q24H ORAL 02/25/19 06:30 03/27/19 06:29 02/28/19 06:12 Morphine Sulfate (Morphine Sulfate) 2 mg Q4H PRN IVP Moderate Pain (Pain Scale 4-6) 02/24/19 14:15 03/03/19 14:14 Nitroglycerin (Ntg) 0.4 mg Q5M PRN SL Prn Chest Pain 02/24/19 14:15 03/26/19 14:14 Ondansetron HCl (Zofran) 4 mg Q6H PRN IVP Nausea & Vomiting 02/24/19 14:15 03/26/19 14:14 Polyethylene Glycol (Miralax) 17 gm DAILYPRN PRN ORAL Constipation 02/24/19 14:15 03/26/19 14:14 Temazepam (Restoril) 15 mg HSPRN PRN ORAL Insomnia 02/24/19 14:15 03/03/19 14:14 Paulo Herrera MD Feb 28, 2019 12:26
[2019-02-28] MEDS ORDERED: CEPHALEXIN500 MG ORAL (13:05)
--- NOTE | 2019-02-28 13:06 | Pulmonology Progress Note ---
Assessment/Plan Problems: (1) Cellulitis of leg, right (2) COPD (chronic obstructive pulmonary disease) (3) Hypothyroidism (4) HTN (hypertension) (5) Developmental delay Assessment/Plan improving eating well all reviewed continue home meds and titrate the dose if needed check electrolytes on Ancef renal parameters improving urine electrolytes dc home with Keflex as ordered by ID Subjective ROS Limited/Unobtainable: No Constitutional: Reports: no symptoms HEENT: Repors: no symptoms Respiratory: Reports: no symptoms Allergies: Coded Allergies: No Known Allergies (Unverified , 06/15/12) Objective Last 24 Hour Vital Signs Date Time Temp Pulse Resp B/P (MAP) Pulse Ox O2 Delivery O2 Flow Rate FiO2 02/28/19 12:00 98.0 76 19 141/82 (101) 96 02/28/19 09:00 Room Air 02/28/19 08:23 81 18 94 Room Air 21 02/28/19 08:20 83 154/84 02/28/19 08:00 97.9 83 18 154/84 (107) 95 02/28/19 05:27 98.2 84 20 130/76 (94) 02/28/19 04:00 98.2 84 20 130/76 (94) 02/28/19 00:00 99.1 86 20 135/67 (89) 02/27/19 21:32 Room Air 02/27/19 20:45 98.7 87 20 138/78 (98) 02/27/19 20:36 85 18 96 Room Air 21 02/27/19 16:00 98.7 79 18 140/80 (100) 97 Intake and Output 02/27/19 02/28/19 19:00 07:00 Intake Total 990 ml Balance 990 ml Intake Oral 880 ml IV Total 110 ml # Voids 6 Objective General Appearance: WD/WN HEENT: normocephalic, atraumatic Respiratory/Chest: chest wall non-tender, lungs clear Cardiovascular: normal peripheral pulses, normal rate Abdomen: normal bowel sounds, soft, non tender Genitourinary: normal external genitalia Extremities: no clubbing Skin: no rash Laboratory Tests 02/28/19 08:11: White Blood Count 6.8, Red Blood Count 4.12L, Hemoglobin 11.2L, Hematocrit 33.4L , Mean Corpuscular Volume 81, Mean Corpuscular Hemoglobin 27.1, Mean Corpuscular Hemoglobin Concent 33.4, Red Cell Distribution Width 14.2, Platelet Count 186, Mean Platelet Volume 7.6, Neutrophils (%) (Auto) 61.8, Lymphocytes (% ) (Auto) 17.7L, Monocytes (%) (Auto) 13.4H, Eosinophils (%) (Auto) 6.1H, Basophils (%) (Auto) 1.0, Sodium Level 142, Potassium Level 3.6, Chloride Level 109H, Carbon Dioxide Level 24, Anion Gap 9, Blood Urea Nitrogen 11, Creatinine 1.0, Estimat Glomerular Filtration Rate , Glucose Level 132H, Calcium Level 8.8 Current Medications Medications (Trade) Dose Ordered Sig/Brian Route PRN Reason Start Time Stop Time Status Last Admin Dose Admin Acetaminophen (Tylenol) 650 mg Q4H PRN ORAL fever 02/24/19 14:15 03/26/19 14:14 Albuterol/ Ipratropium (Albuterol/ Ipratropium) 3 ml Q4H PRN HHN Shortness of Breath 02/24/19 14:15 03/01/19 14:14 Amlodipine Besylate (Norvasc) 2.5 mg DAILY ORAL 02/25/19 09:00 03/27/19 08:59 02/28/19 08:20 Cefazolin Sodium 1 gm/Dextrose 55 ml @ 110 mls/hr EVERY 8 HOURS IVPB 02/25/19 14:00 03/04/19 13:59 02/28/19 05:20 Dextrose (Dextrose 50%) 25 ml Q30M PRN IV Hypoglycemia 02/24/19 14:15 03/26/19 14:14 Dextrose (Dextrose 50%) 50 ml Q30M PRN IV Hypoglycemia 02/24/19 14:15 03/26/19 14:14 Heparin Sodium (Porcine) (Heparin 5000 units/ml) 5,000 units EVERY 12 HOURS SUBQ 02/24/19 21:00 03/26/19 20:59 02/28/19 08:21 Levothyroxine Sodium (Synthroid) 75 mcg Q24H ORAL 02/25/19 06:30 03/27/19 06:29 02/28/19 06:12 Morphine Sulfate (Morphine Sulfate) 2 mg Q4H PRN IVP Moderate Pain (Pain Scale 4-6) 02/24/19 14:15 03/03/19 14:14 Nitroglycerin (Ntg) 0.4 mg Q5M PRN SL Prn Chest Pain 02/24/19 14:15 03/26/19 14:14 Ondansetron HCl (Zofran) 4 mg Q6H PRN IVP Nausea & Vomiting 02/24/19 14:15 03/26/19 14:14 Polyethylene Glycol (Miralax) 17 gm DAILYPRN PRN ORAL Constipation 02/24/19 14:15 03/26/19 14:14 Temazepam (Restoril) 15 mg HSPRN PRN ORAL Insomnia 02/24/19 14:15 03/03/19 14:14 Yolanda Lazcano MD Feb 28, 2019 13:06
--- NOTE | 2019-02-28 13:36 | NUR ---
NURSE NOTES: received discharge order to [facility] home. contact with [facility](omi), scheduled transportation to [facility] home at 1700. new prescription of Keflex 500mg Po qid in the dc packet and [facility] will get medication for patient. order noted and carried out.
--- NOTE | 2019-02-28 14:49 | NUR ---
DISCHARGE PLANNING: NOTE HA MANSFIELD THAT PT IS GOING HOME TODAY. A&P WILL F/U WITH PATIENT.
--- NOTE | 2019-02-28 15:10 | Surgery Progress Note ---
Surgery Progress Note Subjective Additional Comments doing better. no acute events. comfortable labs noted exam stable. Objective Last 24 Hour Vital Signs Date Time Temp Pulse Resp B/P (MAP) Pulse Ox O2 Delivery O2 Flow Rate FiO2 02/28/19 12:00 98.0 76 19 141/82 (101) 96 02/28/19 09:00 Room Air 02/28/19 08:23 81 18 94 Room Air 21 02/28/19 08:20 83 154/84 02/28/19 08:00 97.9 83 18 154/84 (107) 95 02/28/19 05:27 98.2 84 20 130/76 (94) 02/28/19 04:00 98.2 84 20 130/76 (94) 02/28/19 00:00 99.1 86 20 135/67 (89) 02/27/19 21:32 Room Air 02/27/19 20:45 98.7 87 20 138/78 (98) 02/27/19 20:36 85 18 96 Room Air 21 02/27/19 16:00 98.7 79 18 140/80 (100) 97 I&O Intake and Output 02/27/19 02/28/19 18:59 06:59 Intake Total 990 ml Balance 990 ml Intake Oral 880 ml IV Total 110 ml # Voids 6 Dressing: other Wound: other Drains: other Cardiovascular: RSR Respiratory: clear Abdomen: non-tender, present bowel sounds, non-distended Extremities: edema, no tenderness, no cyanosis Laboratory Tests Test 02/28/19 08:11 White Blood Count 6.8 K/UL (4.8-10.8) Red Blood Count 4.12 M/UL (4.70-6.10) L Hemoglobin 11.2 G/DL (14.2-18.0) L Hematocrit 33.4 % (42.0-52.0) L Mean Corpuscular Volume 81 FL (80-99) Mean Corpuscular Hemoglobin 27.1 PG (27.0-31.0) Mean Corpuscular Hemoglobin Concent 33.4 G/DL (32.0-36.0) Red Cell Distribution Width 14.2 % (11.6-14.8) Platelet Count 186 K/UL (150-450) Mean Platelet Volume 7.6 FL (6.5-10.1) Neutrophils (%) (Auto) 61.8 % (45.0-75.0) Lymphocytes (%) (Auto) 17.7 % (20.0-45.0) L Monocytes (%) (Auto) 13.4 % (1.0-10.0) H Eosinophils (%) (Auto) 6.1 % (0.0-3.0) H Basophils (%) (Auto) 1.0 % (0.0-2.0) Sodium Level 142 MMOL/L (136-145) Potassium Level 3.6 MMOL/L (3.5-5.1) Chloride Level 109 MMOL/L (98-107) H Carbon Dioxide Level 24 MMOL/L (21-32) Anion Gap 9 mmol/L (5-15) Blood Urea Nitrogen 11 mg/dL (7-18) Creatinine 1.0 MG/DL (0.55-1.30) Estimat Glomerular Filtration Rate mL/min (>60) Glucose Level 132 MG/DL (74-106) H Calcium Level 8.8 MG/DL (8.5-10.1) Plan Problems: (1) UTI (lower urinary tract infection) (2) Acute encephalopathy (3) Sepsis (4) Cellulitis of leg, right Assessment & Plan: right leg cellulitis from foot to mid leg. no abscess. no drainage. right foot drop noted patient not reliable for history plain films reviewed no acute process will monitor with serial exams cont IV Abx as per ID thank you will follow with recs. (5) COPD (chronic obstructive pulmonary disease) (6) Hypothyroidism (7) HTN (hypertension) (8) Developmental delay Sly Greene Feb 28, 2019 15:10
--- NOTE | 2019-02-28 15:27 | NUR ---
NURSE NOTES: given report to [facility]([phone] for discharge.
[2019-02-28 16:00] VITALS: BP 147/83
--- NOTE | 2019-02-28 17:57 | Internal Med Progress Note ---
Subjective Date of Service: Feb 28, 2019 Physician Name Chicho Ring Attending Physician Librado Faria MD Current Medications Medications (Trade) Dose Ordered Sig/Brian Route PRN Reason Start Time Stop Time Status Last Admin Dose Admin Acetaminophen (Tylenol) 650 mg Q4H PRN ORAL fever 02/24/19 14:15 03/26/19 14:14 Albuterol/ Ipratropium (Albuterol/ Ipratropium) 3 ml Q4H PRN HHN Shortness of Breath 02/24/19 14:15 03/01/19 14:14 Amlodipine Besylate (Norvasc) 2.5 mg DAILY ORAL 02/25/19 09:00 03/27/19 08:59 02/28/19 08:20 Cefazolin Sodium 1 gm/Dextrose 55 ml @ 110 mls/hr EVERY 8 HOURS IVPB 02/25/19 14:00 03/04/19 13:59 02/28/19 13:10 Dextrose (Dextrose 50%) 25 ml Q30M PRN IV Hypoglycemia 02/24/19 14:15 03/26/19 14:14 Dextrose (Dextrose 50%) 50 ml Q30M PRN IV Hypoglycemia 02/24/19 14:15 03/26/19 14:14 Heparin Sodium (Porcine) (Heparin 5000 units/ml) 5,000 units EVERY 12 HOURS SUBQ 02/24/19 21:00 03/26/19 20:59 02/28/19 08:21 Levothyroxine Sodium (Synthroid) 75 mcg Q24H ORAL 02/25/19 06:30 03/27/19 06:29 02/28/19 06:12 Morphine Sulfate (Morphine Sulfate) 2 mg Q4H PRN IVP Moderate Pain (Pain Scale 4-6) 02/24/19 14:15 03/03/19 14:14 Nitroglycerin (Ntg) 0.4 mg Q5M PRN SL Prn Chest Pain 02/24/19 14:15 03/26/19 14:14 Ondansetron HCl (Zofran) 4 mg Q6H PRN IVP Nausea & Vomiting 02/24/19 14:15 03/26/19 14:14 Polyethylene Glycol (Miralax) 17 gm DAILYPRN PRN ORAL Constipation 02/24/19 14:15 03/26/19 14:14 Temazepam (Restoril) 15 mg HSPRN PRN ORAL Insomnia 02/24/19 14:15 03/03/19 14:14 Allergies: Coded Allergies: No Known Allergies (Unverified , 06/15/12) ROS Limited/Unobtainable: Yes Subjective 83 YO M admitted with pain in right leg. Now cellulitis of right leg. Cover for Int Jaswinder-Dr Faria. Objective Last Vital Signs Date Time Temp Pulse Resp B/P (MAP) Pulse Ox O2 Delivery O2 Flow Rate FiO2 02/28/19 16:00 98.6 84 17 147/83 (104) 95 02/28/19 09:00 Room Air 02/28/19 08:23 21 Laboratory Tests Test 02/28/19 08:11 White Blood Count 6.8 K/UL (4.8-10.8) Red Blood Count 4.12 M/UL (4.70-6.10) L Hemoglobin 11.2 G/DL (14.2-18.0) L Hematocrit 33.4 % (42.0-52.0) L Mean Corpuscular Volume 81 FL (80-99) Mean Corpuscular Hemoglobin 27.1 PG (27.0-31.0) Mean Corpuscular Hemoglobin Concent 33.4 G/DL (32.0-36.0) Red Cell Distribution Width 14.2 % (11.6-14.8) Platelet Count 186 K/UL (150-450) Mean Platelet Volume 7.6 FL (6.5-10.1) Neutrophils (%) (Auto) 61.8 % (45.0-75.0) Lymphocytes (%) (Auto) 17.7 % (20.0-45.0) L Monocytes (%) (Auto) 13.4 % (1.0-10.0) H Eosinophils (%) (Auto) 6.1 % (0.0-3.0) H Basophils (%) (Auto) 1.0 % (0.0-2.0) Sodium Level 142 MMOL/L (136-145) Potassium Level 3.6 MMOL/L (3.5-5.1) Chloride Level 109 MMOL/L (98-107) H Carbon Dioxide Level 24 MMOL/L (21-32) Anion Gap 9 mmol/L (5-15) Blood Urea Nitrogen 11 mg/dL (7-18) Creatinine 1.0 MG/DL (0.55-1.30) Estimat Glomerular Filtration Rate mL/min (>60) Glucose Level 132 MG/DL (74-106) H Calcium Level 8.8 MG/DL (8.5-10.1) Intake and Output 02/27/19 02/28/19 18:59 06:59 Intake Total 990 ml Balance 990 ml Intake Oral 880 ml IV Total 110 ml # Voids 6 Objective PHYSICAL EXAMINATION: GENERAL: The patient is well-developed and well-nourished white male, in no apparent distress. HEENT: Eyes, pupils equal and responsive to light and accommodation. Extraocular movements are intact. NECK: Supple without lymphadenopathy. CHEST: Lungs are clear to auscultation bilaterally without wheezes or rales. CARDIOVASCULAR: Regular rhythm and rate. S1 and S2 are normal without murmurs, rubs, or gallops. ABDOMEN: Soft, nontender, nondistended. Positive bowel sounds. No evidence of hepatosplenomegaly. Currently, no rebound or guarding noted. EXTREMITIES: Right extremity has 1+ pitting edema with erythema to the knee. Otherwise, extremities without clubbing, cyanosis, or edema. RECTAL/GENITAL: Not performed. NEUROLOGIC: Cranial nerves II through XII are grossly intact without focal deficits. Assessment/Plan Assessment/Plan ASSESSMENT: This is an 83-year-old male. 1. Right lower extremity cellulitis. 2. Leukocytosis. 3. Hypertension. 4. Coronary artery disease. 5. Congestive heart failure. 6. Chronic obstructive pulmonary disease. 7. History of developmental delay. 8. Hypothyroidism. TREATMENT: 1. Right leg cellulitis/leukocytosis. The patient has been started empirically on cefazolin by ID=Dr Herrera. Await results of blood cultures. 2. Hypertension. Continue amlodipine as above. 3. Coronary artery disease/congestive heart failure. 4. Chronic obstructive pulmonary disease. A Pulmonary consultation has been obtained with Dr. Yolanda Lazcano. 5. Hypothyroidism. Continue Levoxyl as above. 6. Developmental delay. 7. Discharge to [facility] today with [facility] Chicho Ring MD Feb 28, 2019 17:57
--- NOTE | 2019-02-28 19:29 | NUR ---
NURSE NOTES: patient discharge to boarding care with fair condition. no respiratory distress noted. no c/o pain. IV and ID band removed. dc packet provided. no belongings.
--- NOTE | 2019-03-02 21:15 | Discharge Summary ---
Discharge Summary Discharge Summary _ DATE OF ADMISSION: 02/24/2019 DATE OF DISCHARGE: 02/28/2019 DISCHARGED BY: Dr. Faria REASON FOR ADMISSION: [] 83 years old male with past medical history of hypertension, coronary artery disease, CHF, COPD, developmental delay, was taken to ER by his caregiver with chief complaint of redness and swelling to his right right leg. No reported fever. No reported nausea and vomiting. Upon evaluation patient was found to be in acute renal failure BUN 24 creatinine 1.5. Lactic acid 3.2. Leukocytosis with WBC 14.7. Troponin negative. Albumin 2.9. EKG reveals sinus tachycardia with first-degree AV block incomplete right bundle branch block no acute ischemic changes. Chest x-ray revealed cardiomegaly similar to previous chest x-ray no acute cardiopulmonary pathology. Ultrasound venous duplex of right lower extremity revealed no evidence of acute DVT. Patient subsequently admitted for further management CONSULTANTS: independent distributor neurologist pulmonary Dr. Lazcano ID specialist Dr. Richards GI specialist dye range feeder manhole builder/oncologist surgery Dr. Greene psychiatrist HOSPITAL COURSE: [] Patient admitted to medical surgical floor. Venous duplex of right leg was done in emergency department and rule out acute DVT. Patient started on IV antibiotic as per ID specialist recommendation. Patient started on the IV fluids. Home medication resumed. Blood cultures were negative. Initial leukocytosis resolved. Patient remained afebrile. Patient was on IV antibiotic while in the hospital and transition to oral Keflex to complete the course as per ID specialist recommendation. Leg elevation was maintained. Supplemental oxygen provided as needed to keep pulse oximetry above 92%. Pulmonary toilet was on standby as needed. No evidence of COPD exacerbation. Renal parameters electrolytes are closely monitor electrolytes corrected as needed. With IV hydration BUN from 24 down to 11 and creatinine from 1.5 down to 1.0. Acute renal failure resolved. Surgeon follwoed. X-ray x-ray of right tibia-fibula reveal no evidence of acute fracture dislocation. X-ray of the right foot and right ankle showed no definite finding to suggest acute osteomyelitis. Blood pressure was closely monitored and managed with current regimen. DVT prophylaxis provided. Bowel regimen instituted. Supportive care provided. Patient was discharged to [facility] care facility with home health services to follow. FINAL DIAGNOSES: 1. [] Acute renal failure with tubular necrosis and Chronic kidney disease stage I Right leg cellulitis COPD Hypothyroidism Hypertension Coronary artery disease Congestive heart failure Developmental delay DISCHARGE MEDICATIONS: See Medication Reconciliation list. DISCHARGE INSTRUCTIONS: [] Patient was discharged to [facility] facility with home health services to follow. I have been assigned to dictate discharge summary for this account. I was not involved in the patient's management. Stephanie Pennington NP Mar 02, 2019 21:15
--- NOTE | 2019-03-03 15:13 | NUR ---
*-* INSURANCE *-* DISCHARGE SUMMARY HAVE BEEN FAXED TO: [facility] FAX ALL CLINICALS TO [phone]
== END 2019-02-28 19:29 | disposition other institution (70) | DRG 383 ==
LOC: EMR 09:25 → 4E 10:06 → EDBEDREQ 12:01
DX: L03.115 Cellulitis of right lower limb (principal); N17.0 Acute kidney failure with tubular necrosis; J44.9 Chronic obstructive pulmonary disease, unspecified; E03.9 Hypothyroidism, unspecified; N18.1 Chronic kidney disease, stage 1; F79 Unspecified intellectual disabilities; R47.01 Aphasia; I13.0 Hypertensive heart and chronic kidney disease with heart failure and stage 1 through stage 4 chronic kidney disease, or unspecified chronic kidney disease; I50.9 Heart failure, unspecified; I25.10 Atherosclerotic heart disease of native coronary artery without angina pectoris; Z79.82 Long term (current) use of aspirin
CPT/HCPCS: 36415; 71045; 80048; 80053; 80202; 81003; 82550; 82553; 83605; 84484; 85007; 85025; 87040; 87081; 93005; 93970; 93971; 94664; 96365; 99285

== ENCOUNTER 2019-03-10 07:38 | Inpatient (IN) | payer MEDICARE, MEDICAID ==
[~2019-03-10] VITALS: Ht 175.3 cm; Wt 80.0 kg
--- NOTE | 2019-03-10 07:40 | NUR ---
ED Nurse Note: Patient brought in by ambulance [id number] from [facility] home for the [facility]. per EMS, patient was found on the ground next to his bed, c/o right knee pain since yesterday per his caregiver. no obvious trauma noted. patient is awake, nonverbal at this time, breathing unlabored and even, skin is warm to touch.
[2019-03-10 07:49] VITALS: BP 160/69
[2019-03-10 08:20] LABS: BASOPHILS % (AUTO) 0.9 % (0.0-2.0); EOSINOPHILS % (AUTO) 0.3 % (0.0-3.0); HEMATOCRIT 40.8 % (42.0-52.0); HEMOGLOBIN 12.7 G/DL (14.2-18.0); LYMPHOCYTES % (AUTO) 11.3 % (20.0-45.0); MEAN CORPUSCULAR VOLUME 86 FL (80-99); MONOCYTES % (AUTO) 12.6 % (1.0-10.0); NEUTROPHILS % (AUTO) 74.9 % (45.0-75.0); PLATELET COUNT 232 K/UL (150-450); RED BLOOD COUNT 4.73 M/UL (4.70-6.10); WHITE BLOOD COUNT 9.9 K/UL (4.8-10.8)
--- NOTE | 2019-03-10 08:24 | NUR ---
ED Nurse Note: patient went to CT
[2019-03-10 08:26] LABS: APPEARANCE,URINE SLIGHTLY CLOUDY; BILIRUBIN, URINE NEGATIVE (NEGATIVE); COLOR,URINE PALE YELLOW; GLUCOSE, URINE (UA) NEGATIVE (NEGATIVE); KETONES,URINE NEGATIVE (NEGATIVE); LEUKOCYTE ESTERASE ,URINE NEGATIVE (NEGATIVE); NITRITE,URINE NEGATIVE (NEGATIVE); PH,URINE 6.5 (4.5-8.0); PROTEIN,URINE 2+ (NEGATIVE); UROBILINOGEN,URINE 1 MG/DL (0.0-1.0)
[2019-03-10 08:29] LABS: ANION GAP 6 mmol/L (5-15); BLOOD UREA NITROGEN 17 mg/dL (7-18); CALCIUM 8.7 MG/DL (8.5-10.1); CARBON DIOXIDE 29 MMOL/L (21-32); CHLORIDE 107 MMOL/L (98-107); CREATININE 1.3 MG/DL (0.55-1.30); POTASSIUM 4.7 MMOL/L (3.5-5.1); SODIUM 142 MMOL/L (136-145)
--- NOTE | 2019-03-10 08:30 | NUR ---
ED Nurse Note: notified Dr. Walker about patient's blood pressure.
[2019-03-10 08:45] LABS: ALANINE AMINOTRANSFERASE 21 U/L (12-78); ALBUMIN 2.9 G/DL (3.4-5.0); ALBUMIN/GLOBULIN RATIO 0.6 (1.0-2.7); ALKALINE PHOSPHATASE 91 U/L (46-116); ASPARTATE AMINO TRANSFERASE 45 U/L (15-37); BILIRUBIN,TOTAL 0.9 MG/DL (0.2-1.0); CKMB 1.6 NG/ML (0.0-3.6); CREATINE KINASE 207 U/L (26-308)
--- NOTE | 2019-03-10 08:57 | Emergency Room Report ---
History of Present Illness General Chief Complaint: Multiple Trauma/Fall Source: Medical Record, EMS Present Illness HPI 83-year-old male presents ED for evaluation. Patient brought in by EMS from assisted living. Noted to have knee pain. Per nursing staff patient observed falling yesterday sustained unwitnessed fall was found on the ground. Patient has developmental delay and dementia. Nonverbal at baseline. No signs of distress. Unable to provide any additional history at this time. No other aggravating relieving factors. No other associated symptoms Allergies: Coded Allergies: No Known Allergies (Unverified , 06/15/12) Patient History Past Medical History: HTN, COPD, dementia Past Surgical History: none Pertinent Family History: none Social History: Denies: smoking, alcohol use, drug use Immunizations: UTD Reviewed Nursing Documentation: PMH: Agreed; PSxH: Agreed Nursing Documentation-PMH Past Medical History: No Stated History Hx Hypertension: Yes Hx COPD: Yes Hx Cancer: No Hx Gastrointestinal Problems: No Hx Neurological Problems: Yes Hx Dementia: Yes Hx Memory Loss: Yes Hx Concentration Difficulty: Yes Hx Speech Problem: Yes Hx Aphasia: Yes Hx Weakness: Yes Review of Systems All Other Systems: limited Physical Exam Vital Signs Date Time Temp Pulse Resp B/P (MAP) Pulse Ox O2 Delivery O2 Flow Rate FiO2 03/10/19 07:33 97.7 80 18 149/73 (98) 95 Room Air Sp02 EP Interpretation: reviewed, normal General Appearance: no apparent distress, other - nonverbal Head: normocephalic, atraumatic Eyes: bilateral eye normal inspection, bilateral eye PERRL ENT: hearing grossly normal, normal pharynx, no angioedema, normal voice Neck: full range of motion, supple/symm/no masses Respiratory: chest non-tender, lungs clear, normal breath sounds, speaking full sentences Cardiovascular #1: regular rate, rhythm, no edema Cardiovascular #2: 2+ carotid (R), 2+ carotid (L), 2+ radial (R), 2+ radial (L) , 2+ dorsalis pedis (R), 2+ dorsalis pedis (L) Gastrointestinal: normal bowel sounds, non tender, soft, non-distended, no guarding, no rebound Rectal: deferred Genitourinary: normal inspection, no CVA tenderness Musculoskeletal: back normal, gait/station normal, normal range of motion, non- tender Neurologic: other - nonverbal Psychiatric: other - nonverbal Reflexes: 3+ bicep (R), 3+ bicep (L), 3+ tricep (R), 3+ tricep (L), 3+ knee (R) , 3+ knee (L) Lymphatic: no adenopathy Medical Decision Making Diagnostic Impression: Primary Impression: Knee injury Qualified Codes: S89.91XA - Unspecified injury of right lower leg, initial encounter Additional Impressions: Unsteady gait Developmental delay ER Course Hospital Course 83 yo M present with R knee pain s/p fall. Differential diagnoses include: CVA, fx, disllocation Clinical course Patient placed on stretcher. on press service reader. After initial history and physical I ordered labs, EKG, chest x-ray, Xray R knee, CT Brain labs reviewed- no leukocytosis, hemoglobin/hematocrit ok, electrolytes okay, UA + bacteria EKG- NSR, no acute ischemic changes interpreted by me Chest x-ray- no acute process CT brain-unremarkable R knee - DJD, no fx Discussed with tube teller who resides at facility. States patient is unable to ambulate and they are unable to care for patient. Unable to ambulate here in ED. Not safe disposition for discharge. Will admit. Antibiotics given. Case discussed with Dr. Ring and he agreed to accept the patient to his service for further care and support I. I feel this is a highly complex case requiring extensive working including EKG/Rhythm strip, Xray/CT/US, Blood/urine lab work, repeat exams while in ED, and administration of strong opiates/narcotics for pain control, admission to hospital or close patient follow up. Diagnosis - knee injury, unsteady gait, developmental delay admitted to floor in serious condition Labs Test 03/10/19 08:00 03/10/19 08:05 White Blood Count 9.9 K/UL (4.8-10.8) Red Blood Count 4.73 M/UL (4.70-6.10) Hemoglobin 12.7 G/DL (14.2-18.0) Hematocrit 40.8 % (42.0-52.0) Mean Corpuscular Volume 86 FL (80-99) Mean Corpuscular Hemoglobin 26.9 PG (27.0-31.0) Mean Corpuscular Hemoglobin Concent 31.2 G/DL (32.0-36.0) Red Cell Distribution Width 15.0 % (11.6-14.8) Platelet Count 232 K/UL (150-450) Mean Platelet Volume 6.9 FL (6.5-10.1) Neutrophils (%) (Auto) 74.9 % (45.0-75.0) Lymphocytes (%) (Auto) 11.3 % (20.0-45.0) Monocytes (%) (Auto) 12.6 % (1.0-10.0) Eosinophils (%) (Auto) 0.3 % (0.0-3.0) Basophils (%) (Auto) 0.9 % (0.0-2.0) Sodium Level 142 MMOL/L (136-145) Potassium Level 4.7 MMOL/L (3.5-5.1) Chloride Level 107 MMOL/L (98-107) Carbon Dioxide Level 29 MMOL/L (21-32) Anion Gap 6 mmol/L (5-15) Blood Urea Nitrogen 17 mg/dL (7-18) Creatinine 1.3 MG/DL (0.55-1.30) Estimat Glomerular Filtration Rate mL/min (>60) Glucose Level 114 MG/DL (74-106) Calcium Level 8.7 MG/DL (8.5-10.1) Total Bilirubin 0.9 MG/DL (0.2-1.0) Aspartate Amino Transf (AST/SGOT) 45 U/L (15-37) Alanine Aminotransferase (ALT/SGPT) 21 U/L (12-78) Alkaline Phosphatase 91 U/L (46-116) Total Creatine Kinase 207 U/L (26-308) Creatine Kinase MB 1.6 NG/ML (0.0-3.6) Creatine Kinase MB Relative Index 0.7 Troponin I 0.000 ng/mL (0.000-0.056) Pro-B-Type Natriuretic Peptide 338 pg/mL (0-125) Total Protein 7.7 G/DL (6.4-8.2) Albumin 2.9 G/DL (3.4-5.0) Globulin 4.8 g/dL Albumin/Globulin Ratio 0.6 (1.0-2.7) Urine Color Pale yellow Urine Appearance Slightly cloudy Urine pH 6.5 (4.5-8.0) Urine Specific Bailey 1.015 (1.005-1.035) Urine Protein 2+ (NEGATIVE) Urine Glucose (UA) Negative (NEGATIVE) Urine Ketones Negative (NEGATIVE) Urine Blood 5+ (NEGATIVE) Urine Nitrite Negative (NEGATIVE) Urine Bilirubin Negative (NEGATIVE) Urine Urobilinogen 1 MG/DL (0.0-1.0) Urine Leukocyte Esterase Negative (NEGATIVE) Urine RBC Tntc /HPF (0 - 0) Urine WBC 2-4 /HPF (0 - 0) Urine Squamous Epithelial Cells Occasional /LPF Urine Bacteria Few /HPF (NONE) EKG Diagnostic Results Rate: normal Rhythm: NSR ST Segments: no acute changes ASA given to the pt in ED: No Rhythm Strip Diag. Results EP Interpretation: yes Rhythm: NSR, no PVC's, no ectopy Chest X-Ray Diagnostic Results Chest X-Ray Diagnostic Results : Chest X-Ray Ordered: Yes # of Views/Limited/Complete: 1 View Indication: Other EP Interpretation: Yes Interpretation: no consolidation, no effusion, no pneumothorax, no acute cardiopulmonary disease Impression: No acute disease Electronically Signed by: Electronically signed by Jigar Ramos MD Other X-Ray Diagnostic Results Other X-Ray Diagnostic Results : X-Ray ordered: R knee # of Views/Limited Vs Complete: 3 View Indication: Pain EP Interpretation: Yes Interpretation: no dislocation, no soft tissue swelling, no fractures, nonspecific bowel gas Impression: No acute disease Electronically Signed by: Electronically signed by Jigar Ramos MD CT/MRI/US Diagnostic Results CT/MRI/US Diagnostic Results : Imaging Test Ordered: CT Head Impression no acute process Last Vital Signs Date Time Temp Pulse Resp B/P (MAP) Pulse Ox O2 Delivery O2 Flow Rate FiO2 03/10/19 08:20 77 14 Room Air 03/10/19 07:49 97.7 160/69 98 Status: improved Disposition: ADMITTED INPATIENT Condition: Serious Scripts Acetaminophen* (TYLENOL EXTRA STRENGTH*) 500 Mg Tablet 500 MG ORAL Q8H PRN for Prn Headache/Temp > 101, #30 TAB 0 Refills Prov: Jigar Ramos MD 03/10/19 Referrals: NOT CHOSEN IPA/,REFERRING (PCP) Jigar Ramos MD Mar 10, 2019 08:57
--- NOTE | 2019-03-10 09:08 | NUR ---
ED Nurse Note: patient came back from CT/xray
--- NOTE | 2019-03-10 09:13 | Diagnostic Imaging Report ---
Indications: Trauma, status post fall Technique: Spiral acquisitions obtained through the brain. Angled axial and coronal 5 x 5 mm slices were reconstructed. Total dose length product 1474.2 +2005 mGycm. CTDI vol(s) 70.38 x3 mGy. Dose reduction achieved using automated exposure control Comparison: None. Findings: Exam is limited due to patient motion artifact. Per technologist, patient unable hold still. There is age-related enlargement of the ventricles and extra-axial CSF spaces. No definite acute intracranial hemorrhage or edema. 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 There is periventricular deep white matter low-attenuation consistent with chronic microvascular ischemic change. Grossly intact calvarium. There is evidence of chronic mastoid changes on the right. There is posterior ethmoid sinus disease on the right. The orbits are grossly unremarkable. Impression: Limited exam, due to patient motion artifact. No gross acute intracranial bleed or mass effect Chronic and age-related changes, as described The CT scanner at [facility] is accredited by the [employer] and the scans are performed using protocols designed to limit radiation exposure to as low as reasonably achievable to attain images of sufficient resolution adequate for diagnostic evaluation.
--- NOTE | 2019-03-10 09:32 | Diagnostic Imaging Report ---
Indication: Chest pain Technique: One view of the chest Comparison: 02/24/2019 Findings: Overlying soft tissue shadow overlies the lower chest. There is generalized interstitial prominence which is more striking than on the prior exam. The heart is mildly enlarged. The left costophrenic angle is blunted and the left hemidiaphragm is obscured laterally. There are multiple old left rib fracture deformities. Degenerative changes of the right shoulder are noted. Impression: Possible pleural fluid and/or parenchymal disease of the left lateral lung base Cardiomegaly Increased interstitial prominence, could indicate mild congestive changes
[2019-03-10] MEDS ORDERED: TYLENOL EXTRA500 MG ORAL (10:06)
[2019-03-10] MEDS ORDERED: cefTRIAXone 1 GM in NS 55 ML IVPB ONE (10:30)
[2019-03-10 10:43] VITALS: BP 144/76
--- NOTE | 2019-03-10 11:17 | Diagnostic Imaging Report ---
Indication: Pain, status post fall Technique: 3 views of the right knee Comparison: None Findings: The bones are osteoporotic. The joint spaces are preserved. Impression: Negative
--- NOTE | 2019-03-10 12:02 | NUR ---
ED Nurse Note: report given to Sara BARNARD, endorsed all care to her.
[2019-03-10 12:05] VITALS: BP 156/77
--- NOTE | 2019-03-10 12:13 | NUR ---
ED Nurse Note: patient is being transferred to with [facility] with all of his belonings.
--- NOTE | 2019-03-10 13:00 | NUR ---
NURSE NOTES: Pt is not able to answer questions , pt is non verbal. Has hematuria provided with pereneal care. Pt has small scab to rt upper arm bilateral edema, to lower extremities . plus 2 for repositioning. Incontinent of urine and bowel
[2019-03-10] MEDS ORDERED: LORazepam Inj 2mg/ml 1ml IV PRN (13:45)
[2019-03-10] MEDS ORDERED: Miralax 17gm pkt ORAL PRN (13:45)
[2019-03-10] MEDS ORDERED: Morphine Sulfate 2mg/ml Inj(IV/IM USE ONLY) IVP PRN (13:45)
[2019-03-10] MEDS ORDERED: Zolpidem 5mg tab ORAL PRN (13:45)
[2019-03-10] MEDS ORDERED: Dextrose 50% 25ml Syringe IV PRN (13:45)
--- NOTE | 2019-03-10 14:48 | Consultation ---
History of Present Illness General Date patient seen: Mar 10, 2019 Chief Complaint: Multiple Trauma/Fall Present Illness HPI 83 year old male with developmental delay, . HTN, CAD, CHF, COPD, was taken to ER by his caregiver with CC of right knee pain. Otherwise, the patient has had normal behavior and appetite. There is no report of fever. There is no report of nausea or vomiting. Pt was just treated for the cellulitis of the same leg and discharged to his assisted living. The 3 view XRay of the knee was negative for any acute illness. It just showed osteoporosis. Allergies: Coded Allergies: No Known Allergies (Unverified , 06/15/12) Medication History Scheduled Amlodipine Besylate* (Amlodipine Besylate*), 2.5 MG ORAL MORNING, (Reported) Aspirin* (Aspir 81*), 81 MG ORAL MORNING, (Reported) Furosemide* (Lasix*), 40 MG ORAL TWICE A DAY, (Reported) Levothyroxine Sodium* (Levothyroxine Sodium*), 75 MCG ORAL DAILY, (Reported) Potassium Chloride* (K-Dur*), 20 MEQ ORAL TWICE A DAY, (Reported) Scheduled PRN Acetaminophen* (Tylenol Extra Strength*), 500 MG ORAL Q8H PRN for Prn Headache/ Temp > 101 Discontinued Medications Cephalexin* (Keflex*), 500 MG ORAL EVERY 6 HOURS Discontinued Reason: Therapy completed Patient History Healthcare decision maker Resuscitation status Full Code Advanced Directive on File No Past Medical/Surgical History Past Medical/Surgical History: (1) Developmental delay (2) HTN (hypertension) (3) COPD (chronic obstructive pulmonary disease) Review of Systems Constitutional: Reports: no symptoms Eye: Reports: no symptoms All Other Systems: negative except mentioned in HPI Physical Exam General Appearance: WD/WN Lines, tubes and drains: peripheral HEENT: normocephalic, anicteric Neck: non-tender, supple Respiratory/Chest: chest wall non-tender, normal breath sounds Breasts: no masses Cardiovascular/Chest: normal rate Genitourinary/Rectal: normal genital exam Extremities: non-tender Last 24 Hour Vital Signs Date Time Temp Pulse Resp B/P (MAP) Pulse Ox O2 Delivery O2 Flow Rate FiO2 03/10/19 12:37 Room Air 03/10/19 12:13 97.7 92 16 156/77 98 Room Air 03/10/19 12:05 97.7 92 16 156/77 98 Room Air 03/10/19 10:43 97.7 96 15 144/76 97 Room Air 03/10/19 08:20 77 14 Room Air 03/10/19 07:49 97.7 77 14 160/69 98 Room Air 03/10/19 07:33 97.7 80 18 149/73 (98) 95 Room Air Laboratory Tests Test 03/10/19 08:00 03/10/19 08:05 White Blood Count 9.9 K/UL (4.8-10.8) Red Blood Count 4.73 M/UL (4.70-6.10) Hemoglobin 12.7 G/DL (14.2-18.0) L Hematocrit 40.8 % (42.0-52.0) L Mean Corpuscular Volume 86 FL (80-99) Mean Corpuscular Hemoglobin 26.9 PG (27.0-31.0) L Mean Corpuscular Hemoglobin Concent 31.2 G/DL (32.0-36.0) L Red Cell Distribution Width 15.0 % (11.6-14.8) H Platelet Count 232 K/UL (150-450) Mean Platelet Volume 6.9 FL (6.5-10.1) Neutrophils (%) (Auto) 74.9 % (45.0-75.0) Lymphocytes (%) (Auto) 11.3 % (20.0-45.0) L Monocytes (%) (Auto) 12.6 % (1.0-10.0) H Eosinophils (%) (Auto) 0.3 % (0.0-3.0) Basophils (%) (Auto) 0.9 % (0.0-2.0) Sodium Level 142 MMOL/L (136-145) Potassium Level 4.7 MMOL/L (3.5-5.1) Chloride Level 107 MMOL/L (98-107) Carbon Dioxide Level 29 MMOL/L (21-32) Anion Gap 6 mmol/L (5-15) Blood Urea Nitrogen 17 mg/dL (7-18) Creatinine 1.3 MG/DL (0.55-1.30) Estimat Glomerular Filtration Rate mL/min (>60) Glucose Level 114 MG/DL (74-106) H Calcium Level 8.7 MG/DL (8.5-10.1) Total Bilirubin 0.9 MG/DL (0.2-1.0) Aspartate Amino Transf (AST/SGOT) 45 U/L (15-37) H Alanine Aminotransferase (ALT/SGPT) 21 U/L (12-78) Alkaline Phosphatase 91 U/L (46-116) Total Creatine Kinase 207 U/L (26-308) Creatine Kinase MB 1.6 NG/ML (0.0-3.6) Creatine Kinase MB Relative Index 0.7 Troponin I 0.000 ng/mL (0.000-0.056) Pro-B-Type Natriuretic Peptide 338 pg/mL (0-125) H Total Protein 7.7 G/DL (6.4-8.2) Albumin 2.9 G/DL (3.4-5.0) L Globulin 4.8 g/dL Albumin/Globulin Ratio 0.6 (1.0-2.7) L Urine Color Pale yellow Urine Appearance Slightly cloudy Urine pH 6.5 (4.5-8.0) Urine Specific [place] 1.015 (1.005-1.035) Urine Protein 2+ (NEGATIVE) H Urine Glucose (UA) Negative (NEGATIVE) Urine Ketones Negative (NEGATIVE) Urine Blood 5+ (NEGATIVE) H Urine Nitrite Negative (NEGATIVE) Urine Bilirubin Negative (NEGATIVE) Urine Urobilinogen 1 MG/DL (0.0-1.0) H Urine Leukocyte Esterase Negative (NEGATIVE) Urine RBC Tntc /HPF (0 - 0) H Urine WBC 2-4 /HPF (0 - 0) Urine Squamous Epithelial Cells Occasional /LPF Urine Bacteria Few /HPF (NONE) Microbiology Date/Time Source Procedure Growth Status 03/10/19 08:18 Rectum Received Height (Feet): 5 Height (Inches): 9.00 Weight (Pounds): 229 Medications Current Medications Medications (Trade) Dose Ordered Sig/Brian Route PRN Reason Start Time Stop Time Status Last Admin Dose Admin Acetaminophen (Tylenol) 650 mg Q4H PRN ORAL fever 03/10/19 13:45 04/09/19 13:44 Amlodipine Besylate (Norvasc) 2.5 mg DAILY ORAL 03/11/19 09:00 04/10/19 08:59 Dextrose (Dextrose 50%) 25 ml Q30M PRN IV Hypoglycemia 03/10/19 13:45 04/09/19 13:43 Dextrose (Dextrose 50%) 50 ml Q30M PRN IV hypoglycemia 03/10/19 13:45 04/09/19 13:44 Furosemide (Lasix) 40 mg TWICE A DAY ORAL 03/10/19 18:00 04/09/19 17:59 Levothyroxine Sodium (Synthroid) 75 mcg Q24H ORAL 03/11/19 06:30 04/10/19 06:29 Lorazepam (Ativan 2mg/ml 1ml) 0.5 mg Q4H PRN IV For Anxiety 03/10/19 13:45 03/17/19 13:44 Morphine Sulfate (Morphine Sulfate) 1 mg Q4H PRN IVP For Pain 03/10/19 13:45 03/17/19 13:44 Ondansetron HCl (Zofran) 4 mg Q6H PRN IVP Nausea & Vomiting 03/10/19 13:45 04/09/19 13:44 Polyethylene Glycol (Miralax) 17 gm HSPRN PRN ORAL Constipation 03/10/19 13:45 04/09/19 13:44 Sodium Chloride 1,000 ml @ 100 mls/hr Q10H IV 03/10/19 10:30 04/09/19 10:29 03/10/19 10:27 Zolpidem Tartrate (Ambien) 5 mg HSPRN PRN ORAL Insomnia 03/10/19 13:45 03/17/19 13:44 Assessment/Plan Problem List: (1) Knee injury ICD Codes: S89.90XA - Unspecified injury of unspecified lower leg, initial encounter SNOMED: 861645105 Qualifiers: Qualified Codes: S89.91XA - Unspecified injury of right lower leg, initial encounter (2) Hypothyroidism ICD Codes: E03.9 - Hypothyroidism, unspecified SNOMED: 42836556 (3) COPD (chronic obstructive pulmonary disease) ICD Codes: J44.9 - Chronic obstructive pulmonary disease, unspecified SNOMED: 39576742 (4) Developmental delay ICD Codes: R62.50 - Unspecified lack of expected normal physiological development in childhood SNOMED: 653684031 (5) HTN (hypertension) ICD Codes: I10 - Essential (primary) hypertension SNOMED: 29087983 Assessment/Plan: pain management Ortho evaluation titrate fio2 to sat of 92% monitor BP symptomatic treatment. Yolanda Lazcano MD Mar 10, 2019 14:48
[2019-03-10 16:00] VITALS: BP_SYST 155; BP_SYST 156; BP_DIAS 87
[2019-03-10] MEDS: Furosemide 40mg tab ORAL SCH (19:12)
--- NOTE | 2019-03-10 19:36 | History & Physical ---
History and Physical History & Physicial Dictated for Int Med-no. [id number]. hCicho Ring MD Mar 10, 2019 19:36
[2019-03-10 20:00] VITALS: BP 118/68
--- NOTE | 2019-03-10 20:15 | NUR ---
NURSE NOTES: Received pt and report from EVON Ruiz. Observed pt resting in bed with both eyes open and US liquified natural gas technician at bedside. Pt is A/Ox0. IV site intact, asymptomatic, and patent. Bed is in the lowest position and locked. Call light within reach. No signs/symptoms of acute distress noted at this time. Will continue plan of care.
--- NOTE | 2019-03-10 20:18 | NUR ---
NURSE NOTES: Dr Ring here made aware that pt has hematuria with some blood clots. has presence of bilateral edema. Informed that healthcare administrator was phoned for additional information they were not able to provide information on flu or pneumoniae. Per Dr Ring pt was recently admitted and the vaccinations were probably given at that time. Pt is not verbal and all anticiapted needs require to be met. Report given to My informed of report provided to Dr Ring in regards to hematuria and bilateral edema to lower extremities
--- NOTE | 2019-03-10 20:23 | NUR ---
HAND-OFF: Report given to My RN.
[2019-03-11] VITALS: BP 138/74
--- NOTE | 2019-03-11 01:30 | History and Physical Report ---
DATE OF ADMISSION: 03/10/2019 CHIEF COMPLAINT: The patient is an 83-year-old white male, who presents with a chief complaint of knee pain. HISTORY OF PRESENT ILLNESS: The patient is resident of [facility]. The patient himself is aphasic. The patient has a history of developmental delay. According to staff at the assisted living facility, the patient was found on the ground. The patient apparently had an unwitnessed fall. The patient was complaining of right knee pain. The patient presented to [facility] emergency room. The patient is admitted for right knee pain to rule out fracture. REVIEW OF SYSTEMS: Unable to assess secondary to the patient's mental status. PAST MEDICAL HISTORY: Significant for: 1. 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 2. Developmental delay. 3. Aphasia. 4. Congestive heart failure. 5. Hypertension. 6. Coronary artery disease. 7. Chronic obstructive pulmonary disease. 8. Hypothyroidism. PAST SURGICAL HISTORY: The patient denies. CURRENT MEDICATIONS: 1. Amlodipine 2.5 mg p.o. daily. 2. Aspirin 81 mg p.o. daily. 3. Lasix 40 mg p.o. twice daily. 4. Levoxyl 75 mcg p.o. daily. 5. Potassium chloride 20 mEq p.o. twice daily. ALLERGIES: No known drug allergies. SOCIAL HISTORY: The patient is single and lives at [facility]. The patient denies tobacco or alcohol use. PHYSICAL EXAMINATION: VITAL SIGNS: Temperature 97.7, respirations 15, pulse 96, and blood pressure 144/76. GENERAL: The patient is a well-developed and well-nourished, male, in no apparent distress. HEENT: Eyes, pupils are equal and responsive to light and accommodation. Extraocular movements are intact. NECK: Supple without lymphadenopathy. CHEST: Lungs are clear to auscultation bilaterally without wheezes or rales. CARDIOVASCULAR: Regular rhythm and rate. S1 and S2 are normal without murmurs, rubs, or gallops. ABDOMEN: Soft, nontender, and nondistended. Positive bowel sounds. No evidence of hepatosplenomegaly. Currently, no rebound or guarding noted. EXTREMITIES: Negative for clubbing, cyanosis, or edema. RECTAL/GENITAL: Not performed. NEUROLOGIC: Cranial nerves II through XII are grossly intact without focal deficits. Motor strength is 5/5 bilaterally. Deep tendon reflexes are 2+ plantar. LABORATORY STUDIES: WBC 9.9, hemoglobin 10.7, hematocrit 40.8, and platelets 232,000. Sodium 142, potassium 4.7, chloride 107, CO2 29, BUN 17, creatinine 1.3, and glucose 144. Troponin 0.0. Urinalysis showed 5+ blood and 2+ protein with rbc's too numerous to count. An x-ray of the right knee revealed osteoporotic bones, however, no acute fracture. A CT scan of the brain was reported as no acute hemorrhage or mass. ASSESSMENT: This is an 83-year-old male. 1. Right knee pain. 2. Fall injury. 3. Congestive heart failure. 4. Hypertension. 5. Coronary artery disease. 6. Hypothyroidism. 7. History of cellulitis, right lower extremity. 8. Developmental delay. 9. Aphasia TREATMENT: 1. Right knee pain/fall injury. A physical therapy consultation has been obtained. We will follow recommendations of physical therapy. An initial x-ray failed to demonstrate fracture. 2. Congestive heart failure. 3. Hypertension. Continue amlodipine as above. 4. Coronary artery disease. Continue aspirin as above. 5. Hypothyroidism. Continue levothyroxine as above. 6. Developmental delay. 7. Aphasia. 8. History of chronic obstructive pulmonary disease. Chicho Ring M.D. DR: TAMMY JOB#: [id number] CC:
[2019-03-11 04:00] VITALS: BP 135/81
[2019-03-11 06:42] LABS: BASOPHILS % (AUTO) 1.3 % (0.0-2.0); EOSINOPHILS % (AUTO) 0.5 % (0.0-3.0); HEMATOCRIT 34.6 % (42.0-52.0); HEMOGLOBIN 11.3 G/DL (14.2-18.0); LYMPHOCYTES % (AUTO) 11.8 % (20.0-45.0); MEAN CORPUSCULAR VOLUME 85 FL (80-99); MONOCYTES % (AUTO) 11.9 % (1.0-10.0); NEUTROPHILS % (AUTO) 74.5 % (45.0-75.0); PLATELET COUNT 293 K/UL (150-450); RED BLOOD COUNT 4.06 M/UL (4.70-6.10); RED CELL DISTRIBUTION WIDTH 15.1 % (11.6-14.8); WHITE BLOOD COUNT 9.1 K/UL (4.8-10.8)
--- NOTE | 2019-03-11 07:25 | NUR ---
NURSE NOTES: WALKING ROUNDS DONE WITH OUTGOING RN. PATIENT ASLEEP BUT AROUSABLE TO NAME. AOX1. DISCUSSED PLAN OF CARE FOR THE DAY. UNABLE TO COMPREHEND. BED I LOWEST AND LOCKED POSITION. CALL LIGHT WITHIN REACH. TURN SCHEDULE IN PROGRESS WITH BED ALARM ACTIVATED.
[2019-03-11 07:28] LABS: ALANINE AMINOTRANSFERASE 26 U/L (12-78); ALBUMIN 2.6 G/DL (3.4-5.0); ALBUMIN/GLOBULIN RATIO 0.5 (1.0-2.7); ALKALINE PHOSPHATASE 87 U/L (46-116); ANION GAP 8 mmol/L (5-15); ASPARTATE AMINO TRANSFERASE 37 U/L (15-37); BILIRUBIN,TOTAL 0.6 MG/DL (0.2-1.0); BLOOD UREA NITROGEN 15 mg/dL (7-18); CALCIUM 8.9 MG/DL (8.5-10.1); CARBON DIOXIDE 27 MMOL/L (21-32); CHLORIDE 110 MMOL/L (98-107); CHOLESTEROL 151 MG/DL (< 200); CREATININE 1.1 MG/DL (0.55-1.30); HDL CHOLESTEROL 47 MG/DL (40-60); POTASSIUM 4.1 MMOL/L (3.5-5.1); SODIUM 145 MMOL/L (136-145); TRIGLYCERIDES 42 MG/DL (30-150)
--- NOTE | 2019-03-11 07:38 | NUR ---
HAND-OFF: Report given to EVON Reeves.
[2019-03-11 08:00] VITALS: BP_SYST 131; BP_SYST 171; BP_DIAS 75; BP_DIAS 84
[2019-03-11] MEDS: Furosemide 40mg tab ORAL SCH ×2 (08:53→18:13)
[2019-03-11 12:00] VITALS: BP 136/86
--- NOTE | 2019-03-11 13:02 | Pulmonology Progress Note ---
Assessment/Plan Problems: (1) Knee injury (2) Hypothyroidism (3) COPD (chronic obstructive pulmonary disease) (4) Developmental delay (5) HTN (hypertension) Assessment/Plan doing better all reviewed pain management Ortho evaluation titrate fio2 to sat of 92% monitor BP symptomatic treatment. Subjective Allergies: Coded Allergies: No Known Allergies (Unverified , 06/15/12) Objective Last 24 Hour Vital Signs Date Time Temp Pulse Resp B/P (MAP) Pulse Ox O2 Delivery O2 Flow Rate FiO2 03/11/19 12:00 97.7 79 20 136/86 (103) 96 03/11/19 09:00 Room Air 03/11/19 08:53 79 131/75 03/11/19 08:00 97.6 79 18 131/75 (93) 98 03/11/19 04:00 98.1 88 18 135/81 (99) 98 03/11/19 00:00 98.2 89 17 138/74 (95) 98 03/10/19 21:00 Room Air 03/10/19 20:00 97.9 83 18 118/68 (85) 96 03/10/19 16:00 97.6 92 16 156/87 (110) 03/10/19 16:00 97.6 92 18 155/87 (109) 98 Intake and Output 03/10/19 03/11/19 19:00 07:00 Intake Total 360 ml 950 ml Balance 360 ml 950 ml Intake IV Total 950 ml Other 360 ml # Voids 4 2 General Appearance: WD/WN HEENT: normocephalic, atraumatic Respiratory/Chest: chest wall non-tender, lungs clear, normal breath sounds Cardiovascular: normal peripheral pulses, normal rate Abdomen: normal bowel sounds, soft, non tender Genitourinary: normal external genitalia Extremities: no clubbing Skin: no rash Microbiology Date/Time Source Procedure Growth Status 03/10/19 08:18 Rectum Received Laboratory Tests 03/11/19 04:55: White Blood Count 9.1, Red Blood Count 4.06L, Hemoglobin 11.3L, Hematocrit 34.6L , Mean Corpuscular Volume 85, Mean Corpuscular Hemoglobin 27.8, Mean Corpuscular Hemoglobin Concent 32.6, Red Cell Distribution Width 15.1H, Platelet Count 293, Mean Platelet Volume 6.0L, Neutrophils (%) (Auto) 74.5, Lymphocytes (%) (Auto) 11.8L, Monocytes (%) (Auto) 11.9H, Eosinophils (%) (Auto ) 0.5, Basophils (%) (Auto) 1.3, Sodium Level 145, Potassium Level 4.1, Chloride Level 110H, Carbon Dioxide Level 27, Anion Gap 8, Blood Urea Nitrogen 15, Creatinine 1.1, Estimat Glomerular Filtration Rate , Glucose Level 102, Calcium Level 8.9, Total Bilirubin 0.6, Aspartate Amino Transf (AST/SGOT) 37, Alanine Aminotransferase (ALT/SGPT) 26, Alkaline Phosphatase 87, Total Protein 7.7, Albumin 2.6L, Globulin 5.1, Albumin/Globulin Ratio 0.5L, Triglycerides Level 42, Cholesterol Level 151, LDL Cholesterol 92, HDL Cholesterol 47, Cholesterol/HDL Ratio 3.2L, Thyroid Stimulating Hormone (TSH) 1.203 Current Medications Medications (Trade) Dose Ordered Sig/Brian Route PRN Reason Start Time Stop Time Status Last Admin Dose Admin Acetaminophen (Tylenol) 650 mg Q4H PRN ORAL fever 03/10/19 13:45 04/09/19 13:44 Amlodipine Besylate (Norvasc) 2.5 mg DAILY ORAL 03/11/19 09:00 04/10/19 08:59 03/11/19 08:53 Dextrose (Dextrose 50%) 25 ml Q30M PRN IV Hypoglycemia 03/10/19 13:45 04/09/19 13:43 Dextrose (Dextrose 50%) 50 ml Q30M PRN IV hypoglycemia 03/10/19 13:45 04/09/19 13:44 Furosemide (Lasix) 40 mg TWICE A DAY ORAL 03/10/19 18:00 04/09/19 17:59 03/11/19 08:53 Levothyroxine Sodium (Synthroid) 75 mcg Q24H ORAL 03/11/19 06:30 04/10/19 06:29 03/11/19 06:15 Lorazepam (Ativan 2mg/ml 1ml) 0.5 mg Q4H PRN IV For Anxiety 03/10/19 13:45 03/17/19 13:44 Morphine Sulfate (Morphine Sulfate) 1 mg Q4H PRN IVP For Pain 03/10/19 13:45 03/17/19 13:44 Ondansetron HCl (Zofran) 4 mg Q6H PRN IVP Nausea & Vomiting 03/10/19 13:45 04/09/19 13:44 Polyethylene Glycol (Miralax) 17 gm HSPRN PRN ORAL Constipation 03/10/19 13:45 04/09/19 13:44 Sodium Chloride 1,000 ml @ 100 mls/hr Q10H IV 03/10/19 10:30 04/09/19 10:29 03/11/19 06:15 Zolpidem Tartrate (Ambien) 5 mg HSPRN PRN ORAL Insomnia 03/10/19 13:45 03/17/19 13:44 Yolanda Lazcano MD Mar 11, 2019 13:02
--- NOTE | 2019-03-11 13:17 | NUR ---
CASE MANAGEMENT: INITIAL REVIEW 83 YO M SLIME FROM HOME FOR AGED CC: MULTIPLE TRAUMA/FALL PMHx: HTN. COPD. DEMENTIA. SI:KNEE PAIN. UNSTEADY GAIT. UTI. T 97.7 HR 80 RR 18 B/P 149/73 SATS 95% ON RA GLU 114 AST 45 BNP 338 IS: CEFTRIAXONE IV X1 NS BOLUS X1 PATIENT ADMITTED TO MED/SURG 03/10/2019 @ 1026 DCP: PATIENT TO BE DISCHARGED TO HOME ONCE MEDICALLY CLEARED. PLAN OF CARE: PT EVAL 03/11/2019 SI:KNEE PAIN. UNSTEADY GAIT. UTI. T 97.7 HR 79 RR 20 B/P 136/86 SATS 96% ON RA CL 110 IS: IVF @ 100 ml/HR LASIX PO BID NORVASC PO QD SYNTHROID PO Q24H KNEE XRAY Impression: Negative MED/SURG DCP: PATIENT TO BE DISCHARGED TO HOME ONCE MEDICALLY CLEARED. PLAN OF CARE: PT EVAL Addendum: 03/11/19 at 1327 by Kasey Dacosta CM INTERQUAL MET
--- NOTE | 2019-03-11 13:24 | NUR ---
INSURANCE REVIEWS FAXED TO AUTH#[id number] FAX CLINICALS TO: [phone]
--- NOTE | 2019-03-11 14:16 | NUR ---
NURSE NOTES: UPON DOING HEAD TO TOE ASSESSMENT, FOUND PATIENT WITH NO WOUNDS; SKIN INTACT. PLACED OPTIFOAM TO BILATERAL ELBOWS AND HEELS, SACRAL,COCCYX. FOR PREVENTION. TURN SCHEDULE IN PROGRESS.TOLERATED WELL. DENIES PAIN TO BILATERAL KNEES.
[2019-03-11 16:00] VITALS: BP 143/67
--- NOTE | 2019-03-11 16:23 | Diagnostic Imaging Report ---
Indication:Elevated Bun and Creatinine. Technique: Grayscale and duplex Doppler imaging of the kidneys performed. Comparison: None Findings: The kidneys appear slightly echogenic. There are multiple small cysts present bilaterally. The right kidney is 9.1 cm in length. The left kidney is 11.3 cm in length. IVC is patent. Bladder is unremarkable. IMPRESSION: Suspected medical renal disease Bilateral renal cysts.
--- NOTE | 2019-03-11 17:25 | Internal Med Progress Note ---
Subjective Date of Service: Mar 11, 2019 Physician Name Chicho Rign Attending Physician Chicho Ring MD Current Medications Medications (Trade) Dose Ordered Sig/Brian Route PRN Reason Start Time Stop Time Status Last Admin Dose Admin Acetaminophen (Tylenol) 650 mg Q4H PRN ORAL fever 03/10/19 13:45 04/09/19 13:44 Amlodipine Besylate (Norvasc) 2.5 mg DAILY ORAL 03/11/19 09:00 04/10/19 08:59 03/11/19 08:53 Dextrose (Dextrose 50%) 25 ml Q30M PRN IV Hypoglycemia 03/10/19 13:45 04/09/19 13:43 Dextrose (Dextrose 50%) 50 ml Q30M PRN IV hypoglycemia 03/10/19 13:45 04/09/19 13:44 Furosemide (Lasix) 40 mg TWICE A DAY ORAL 03/10/19 18:00 04/09/19 17:59 03/11/19 08:53 Levothyroxine Sodium (Synthroid) 75 mcg Q24H ORAL 03/11/19 06:30 04/10/19 06:29 03/11/19 06:15 Lorazepam (Ativan 2mg/ml 1ml) 0.5 mg Q4H PRN IV For Anxiety 03/10/19 13:45 03/17/19 13:44 Morphine Sulfate (Morphine Sulfate) 1 mg Q4H PRN IVP For Pain 03/10/19 13:45 03/17/19 13:44 Ondansetron HCl (Zofran) 4 mg Q6H PRN IVP Nausea & Vomiting 03/10/19 13:45 04/09/19 13:44 Polyethylene Glycol (Miralax) 17 gm HSPRN PRN ORAL Constipation 03/10/19 13:45 04/09/19 13:44 Sodium Chloride 1,000 ml @ 100 mls/hr Q10H IV 03/10/19 10:30 04/09/19 10:29 03/11/19 16:05 Zolpidem Tartrate (Ambien) 5 mg HSPRN PRN ORAL Insomnia 03/10/19 13:45 03/17/19 13:44 Allergies: Coded Allergies: No Known Allergies (Unverified , 06/15/12) ROS Limited/Unobtainable: Yes Subjective 83 YO M with admitted with right knee pain after fall injury. Now hematuria Objective Last Vital Signs Date Time Temp Pulse Resp B/P (MAP) Pulse Ox O2 Delivery O2 Flow Rate FiO2 03/11/19 16:00 97.7 76 20 143/67 (92) 99 03/11/19 09:00 Room Air Laboratory Tests Test 03/11/19 04:55 White Blood Count 9.1 K/UL (4.8-10.8) Red Blood Count 4.06 M/UL (4.70-6.10) L Hemoglobin 11.3 G/DL (14.2-18.0) L Hematocrit 34.6 % (42.0-52.0) L Mean Corpuscular Volume 85 FL (80-99) Mean Corpuscular Hemoglobin 27.8 PG (27.0-31.0) Mean Corpuscular Hemoglobin Concent 32.6 G/DL (32.0-36.0) Red Cell Distribution Width 15.1 % (11.6-14.8) H Platelet Count 293 K/UL (150-450) Mean Platelet Volume 6.0 FL (6.5-10.1) L Neutrophils (%) (Auto) 74.5 % (45.0-75.0) Lymphocytes (%) (Auto) 11.8 % (20.0-45.0) L Monocytes (%) (Auto) 11.9 % (1.0-10.0) H Eosinophils (%) (Auto) 0.5 % (0.0-3.0) Basophils (%) (Auto) 1.3 % (0.0-2.0) Sodium Level 145 MMOL/L (136-145) Potassium Level 4.1 MMOL/L (3.5-5.1) Chloride Level 110 MMOL/L (98-107) H Carbon Dioxide Level 27 MMOL/L (21-32) Anion Gap 8 mmol/L (5-15) Blood Urea Nitrogen 15 mg/dL (7-18) Creatinine 1.1 MG/DL (0.55-1.30) Estimat Glomerular Filtration Rate mL/min (>60) Glucose Level 102 MG/DL (74-106) Calcium Level 8.9 MG/DL (8.5-10.1) Total Bilirubin 0.6 MG/DL (0.2-1.0) Aspartate Amino Transf (AST/SGOT) 37 U/L (15-37) Alanine Aminotransferase (ALT/SGPT) 26 U/L (12-78) Alkaline Phosphatase 87 U/L (46-116) Total Protein 7.7 G/DL (6.4-8.2) Albumin 2.6 G/DL (3.4-5.0) L Globulin 5.1 g/dL Albumin/Globulin Ratio 0.5 (1.0-2.7) L Triglycerides Level 42 MG/DL (30-150) Cholesterol Level 151 MG/DL (< 200) LDL Cholesterol 92 mg/dL (<100) HDL Cholesterol 47 MG/DL (40-60) Cholesterol/HDL Ratio 3.2 (3.3-4.4) L Thyroid Stimulating Hormone (TSH) 1.203 uiU/mL (0.358-3.740) Microbiology Date/Time Source Procedure Growth Status 03/10/19 08:18 Rectum Received Intake and Output 03/10/19 03/11/19 19:00 07:00 Intake Total 360 ml 950 ml Balance 360 ml 950 ml Intake IV Total 950 ml Other 360 ml # Voids 4 2 Objective PHYSICAL EXAMINATION: GENERAL: The patient is a well-developed and well-nourished, male, in no apparent distress. HEENT: Eyes, pupils are equal and responsive to light and accommodation. Extraocular movements are intact. NECK: Supple without lymphadenopathy. CHEST: Lungs are clear to auscultation bilaterally without wheezes or rales. CARDIOVASCULAR: Regular rhythm and rate. S1 and S2 are normal without murmurs, rubs, or gallops. ABDOMEN: Soft, nontender, and nondistended. Positive bowel sounds. No evidence of hepatosplenomegaly. Currently, no rebound or guarding noted. EXTREMITIES: Negative for clubbing, cyanosis, or edema. RECTAL/GENITAL: Not performed. NEUROLOGIC: Cranial nerves II through XII are grossly intact without focal deficits. Motor strength is 5/5 bilaterally. Deep tendon reflexes are 2+ plantar. Assessment/Plan Assessment/Plan ASSESSMENT: This is an 83-year-old male. 1. Right knee pain. 2. Fall injury. 3. Congestive heart failure. 4. Hypertension. 5. Coronary artery disease. 6. Hypothyroidism. 7. History of cellulitis, right lower extremity. 8. Developmental delay. 9. Aphasia 10. Hematuria 11. COPD TREATMENT: 1. Right knee pain/fall injury. A physical therapy consultation has been obtained. We will follow recommendations of physical therapy. An initial x-ray failed to demonstrate fracture. 2. Congestive heart failure. 3. Hypertension. Continue amlodipine as above. 4. Coronary artery disease. Continue aspirin as above. 5. Hypothyroidism. Continue levothyroxine as above. 6. Developmental delay. 7. Aphasia. 8. History of chronic obstructive pulmonary disease; pulmonary=[place] 9. Renal ultrasound=medical renal disease Chicho Ring MD Mar 11, 2019 17:25
--- NOTE | 2019-03-11 18:31 | NUR ---
NURSE NOTES: UNEVENTFUL DAY. TURN SCHEDULE IN PROGRESS. SKIN REMAINS INTACT. BED IN LOWEST AND LOCKED POSITION. CALL LIGHT WITHIN REACH.
--- NOTE | 2019-03-11 19:31 | NUR ---
HAND-OFF: Report given to LISS BOWMAN LVN.
--- NOTE | 2019-03-11 19:31 | NUR ---
NURSE NOTES:Patient received from Lala Goldman patient in bed resting comfortable . Denies pain .no s/s of distress noted . Patient skin intact . bilateral elbows , heels , sacral and coccyx with Optifoam to prevent skin breakdown. patient turned and repositioned for comfort .safety and fall Implemented . call light within reach . bed in low position at all times . bed alarm on.
[2019-03-11 20:15] VITALS: BP 108/47
[2019-03-12] VITALS: BP 118/74
[2019-03-12 04:00] VITALS: BP 116/67
[2019-03-12 06:24] LABS: ANION GAP 7 mmol/L (5-15); BLOOD UREA NITROGEN 14 mg/dL (7-18); CALCIUM 8.1 MG/DL (8.5-10.1); CARBON DIOXIDE 27 MMOL/L (21-32); CHLORIDE 111 MMOL/L (98-107); CREATININE 1.1 MG/DL (0.55-1.30); POTASSIUM 3.3 MMOL/L (3.5-5.1); SODIUM 145 MMOL/L (136-145)
[2019-03-12 06:47] LABS: BASOPHILS % (AUTO) 0.7 % (0.0-2.0); EOSINOPHILS % (AUTO) 1.5 % (0.0-3.0); HEMATOCRIT 31.9 % (42.0-52.0); HEMOGLOBIN 10.3 G/DL (14.2-18.0); LYMPHOCYTES % (AUTO) 13.7 % (20.0-45.0); MEAN CORPUSCULAR VOLUME 84 FL (80-99); MONOCYTES % (AUTO) 18.9 % (1.0-10.0); NEUTROPHILS % (AUTO) 65.2 % (45.0-75.0); PLATELET COUNT 254 K/UL (150-450); RED BLOOD COUNT 3.78 M/UL (4.70-6.10); RED CELL DISTRIBUTION WIDTH 15.2 % (11.6-14.8); WHITE BLOOD COUNT 6.9 K/UL (4.8-10.8)
--- NOTE | 2019-03-12 07:28 | NUR ---
HAND-OFF: Report given to Lala Martinez
--- NOTE | 2019-03-12 07:30 | NUR ---
NURSE NOTES: WALKING ROUNDS DONE WITH OUTGOING RN. PATIENT AWAKE IN BED. ABLE TO ANSWER SIMPLE YES /NO QUESTIONS. ASKING FOR APPLESAUCE. APPETITE GOOD. NEEDS MET, DISCUSSED PLAN OF CARE FOR THE DAY. TURN SCHEDULE IN PROGRESS. BED IN LOWEST AND LOCKED POSITION. CALL LIGHT WITHIN REACH.
[2019-03-12 08:00] VITALS: BP 152/91
[2019-03-12] MEDS: Furosemide 40mg tab ORAL SCH ×2 (08:55→17:22)
--- NOTE | 2019-03-12 11:15 | NUR ---
SWALLOW/SPEECH THERAPY NOTE: REFERRED BY DR. ESCUDERO FOR A SWALLOW EVALUATION, SEE FULL REPORT IN SUPERVISOR PUBLIC MESSAGE SERVICE CARE ACTIVITY SECTION. 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 ? DIET AT [facility] NEED TO EXPLORE. NOW ON A REGULAR TYPE AND MECH SOFT GROUND DIET WITH THIN LIQUIDS AND 50/75/100% INTAKE. PER MOTORCYCLE ENGINE ASSEMBLERMARKOS, NO OVERT ASPIRATION BUT TAKES A LONG TIME TO EAT 30-40 MINUTES AND NEEDS ASSIST TO SELF-FEED FOOD GETS ALL OVER HIM. PER TAMMY BARNARD, INCONSISTENT COUGH WITH THIN LIQUIDS AND TAKES A LONG TIME TO CHEW MASTICATED SOLIDS (EDENTULOUS AND NO DENTURES PRESENT). [place] [facility] [place] A MECH SOFT CHOPPED DIET AND THIN LIQUIDS. ALERT BUT MOSTLY NONVERBAL. WILL IMITATE A FEW WORDS IN SOFT BREATHY VOICE BUT DOES NOT INITIATE SPEECH AND DID NOT FOLLOW ORAL COMMANDS. INITIAL IMPRESSIONS S/S OF AT LEAST A MILD-MODERATE ORAL PREP AND OROPHARYNGEAL DYSPHAGIA WITH OVERALL INCREASED TRANSIT TIMES. EDENTULOUS AND HAS LOWER LIP REPETITIVE MOVEMENT OR TREMOR. DID NOT IMITATE LIP/TONGUE MOVEMENTS. NO NEED FOR ORAL SUCTION. PER RN S/S OF ASPIRATION WITH THIN HOLD ON THIS TRIAL UNTIL MBSS. GIVEN NECTAR THICK LIQUIDS TSP/CUP, GROSSLY FUNCTIONAL SWALLOW WITH FAIR HYOLARYNGEAL EXCURSION, NO ORAL RESIDUE NOR S/S OF OVERT ASPIRATION. GIVEN TSP PUREED, CHEWS FOR 5-7 SECONDS AND SWALLOWS WITH FAIR HYOLARYNGEAL EXCURSION, NO ORAL RESIDUE, NO OVERT ASPIRATION. HAS SILENT ASPIRATION RISK DUE TO OLD CVA AND DEMENTIA DIAGNOSES RECOMMENDATIONS: CONSIDER CONTINUING WITH PO INTAKE FOR QUALITY OF LIFE, BUT DOWNGRADE TO PUREED AND NECTAR THICK LIQUIDS WITH POSTED ASPIRATION AND REFLUX PRECAUTIONS AND ASSIST WITH MEALS. CRUSH MEDS AND SEND HIGH ART SUP IF NEEDS PER RD SKILLED DYSPHAGIA MANAGEMENT AND TX COGNITIVE-COM EVAL/TX FOR COMMUNICATION TIPS EDUCATED/TRAINED RN (TAMMY) AND MOTORCYCLE ENGINE ASSEMBLER (MARKOS) IN POSTED ASPIRATION AND REFLUX PRECAUTIONS. LEFT MESSAGE WITH . Addendum: 03/18/19 at [address] ESCUDERO APPROVED MODIFIED BARIUM SWALLOW STUDY (MBSS) TO FURTHER ASSESS SWALLOW, R/O SILENT ASPIRATION RISK/ETIOLOGY, AND ATTEMPT TRIAL TX TECHNIQUES.
--- NOTE | 2019-03-12 11:26 | Diagnostic Imaging Report ---
APPROVED REPORT CPT Code: 00920 Present Symptoms Comments: BILATERAL LEGS PAIN. BILATERAL: Imaging reveals a patent deep venous system bilaterally. There is no evidence of thrombus within the femoral, popliteal or tibial segments. The greater saphenous veins are also within normal limits. Doppler indicates normal spontaneous flow within these segments.
[2019-03-12 11:43] VITALS: BP 147/78
--- NOTE | 2019-03-12 11:56 | Internal Med Progress Note ---
Subjective Date of Service: Mar 12, 2019 Physician Name Chicho Ring Attending Physician Chicho Ring MD Current Medications Medications (Trade) Dose Ordered Sig/Brian Route PRN Reason Start Time Stop Time Status Last Admin Dose Admin Acetaminophen (Tylenol) 650 mg Q4H PRN ORAL fever 03/10/19 13:45 04/09/19 13:44 Amlodipine Besylate (Norvasc) 2.5 mg DAILY ORAL 03/11/19 09:00 04/10/19 08:59 03/12/19 08:55 Dextrose (Dextrose 50%) 25 ml Q30M PRN IV Hypoglycemia 03/10/19 13:45 04/09/19 13:43 Dextrose (Dextrose 50%) 50 ml Q30M PRN IV hypoglycemia 03/10/19 13:45 04/09/19 13:44 Furosemide (Lasix) 40 mg TWICE A DAY ORAL 03/10/19 18:00 04/09/19 17:59 03/12/19 08:55 Levothyroxine Sodium (Synthroid) 75 mcg Q24H ORAL 03/11/19 06:30 04/10/19 06:29 03/12/19 06:44 Lorazepam (Ativan 2mg/ml 1ml) 0.5 mg Q4H PRN IV For Anxiety 03/10/19 13:45 03/17/19 13:44 Morphine Sulfate (Morphine Sulfate) 1 mg Q4H PRN IVP For Pain 03/10/19 13:45 03/17/19 13:44 Ondansetron HCl (Zofran) 4 mg Q6H PRN IVP Nausea & Vomiting 03/10/19 13:45 04/09/19 13:44 Polyethylene Glycol (Miralax) 17 gm HSPRN PRN ORAL Constipation 03/10/19 13:45 04/09/19 13:44 Sodium Chloride 1,000 ml @ 100 mls/hr Q10H IV 03/10/19 10:30 04/09/19 10:29 03/12/19 02:40 Zolpidem Tartrate (Ambien) 5 mg HSPRN PRN ORAL Insomnia 03/10/19 13:45 03/17/19 13:44 Allergies: Coded Allergies: No Known Allergies (Unverified , 06/15/12) ROS Limited/Unobtainable: Yes Subjective 83 YO M with admitted with right knee pain after fall injury. Now hematuria Objective Last Vital Signs Date Time Temp Pulse Resp B/P (MAP) Pulse Ox O2 Delivery O2 Flow Rate FiO2 03/12/19 11:43 98.0 80 18 147/78 (101) 97 03/12/19 09:00 Room Air Laboratory Tests Test 03/12/19 04:55 White Blood Count 6.9 K/UL (4.8-10.8) Red Blood Count 3.78 M/UL (4.70-6.10) L Hemoglobin 10.3 G/DL (14.2-18.0) L Hematocrit 31.9 % (42.0-52.0) L Mean Corpuscular Volume 84 FL (80-99) Mean Corpuscular Hemoglobin 27.1 PG (27.0-31.0) Mean Corpuscular Hemoglobin Concent 32.2 G/DL (32.0-36.0) Red Cell Distribution Width 15.2 % (11.6-14.8) H Platelet Count 254 K/UL (150-450) Mean Platelet Volume 7.3 FL (6.5-10.1) Neutrophils (%) (Auto) 65.2 % (45.0-75.0) Lymphocytes (%) (Auto) 13.7 % (20.0-45.0) L Monocytes (%) (Auto) 18.9 % (1.0-10.0) H Eosinophils (%) (Auto) 1.5 % (0.0-3.0) Basophils (%) (Auto) 0.7 % (0.0-2.0) Sodium Level 145 MMOL/L (136-145) Potassium Level 3.3 MMOL/L (3.5-5.1) L Chloride Level 111 MMOL/L (98-107) H Carbon Dioxide Level 27 MMOL/L (21-32) Anion Gap 7 mmol/L (5-15) Blood Urea Nitrogen 14 mg/dL (7-18) Creatinine 1.1 MG/DL (0.55-1.30) Estimat Glomerular Filtration Rate mL/min (>60) Glucose Level 93 MG/DL (74-106) Calcium Level 8.1 MG/DL (8.5-10.1) L Microbiology Date/Time Source Procedure Growth Status 03/10/19 08:18 Nasal Nares 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 Complete 03/10/19 08:18 Rectum - Final NO CARBAPENEM-RESISTANT ENTEROBACTERI... Complete 03/10/19 08:18 Rectum VRE Culture - Final NO VANCOMYCIN RESISTANT ENTEROCOCCUS ... Complete Intake and Output 03/11/19 03/12/19 19:00 07:00 Intake Total 1460 ml 1620 ml Balance 1460 ml 1620 ml Intake Oral 360 ml 520 ml IV Total 1100 ml 1100 ml # Voids 4 2 Objective PHYSICAL EXAMINATION: GENERAL: The patient is a well-developed and well-nourished, male, in no apparent distress. HEENT: Eyes, pupils are equal and responsive to light and accommodation. Extraocular movements are intact. NECK: Supple without lymphadenopathy. CHEST: Lungs are clear to auscultation bilaterally without wheezes or rales. CARDIOVASCULAR: Regular rhythm and rate. S1 and S2 are normal without murmurs, rubs, or gallops. ABDOMEN: Soft, nontender, and nondistended. Positive bowel sounds. No evidence of hepatosplenomegaly. Currently, no rebound or guarding noted. EXTREMITIES: Negative for clubbing, cyanosis, or edema. RECTAL/GENITAL: Not performed. NEUROLOGIC: Cranial nerves II through XII are grossly intact without focal deficits. Motor strength is 5/5 bilaterally. Deep tendon reflexes are 2+ plantar. Assessment/Plan Assessment/Plan ASSESSMENT: This is an 83-year-old male. 1. Right knee pain. 2. Fall injury. 3. Congestive heart failure. 4. Hypertension. 5. Coronary artery disease. 6. Hypothyroidism. 7. History of cellulitis, right lower extremity. 8. Developmental delay. 9. Aphasia 10. Hematuria 11. COPD TREATMENT: 1. Right knee pain/fall injury. A physical therapy consultation has been obtained. We will follow recommendations of physical therapy. An initial x-ray failed to demonstrate fracture. 2. Congestive heart failure. 3. Hypertension. Continue amlodipine as above. 4. Coronary artery disease. Continue aspirin as above. 5. Hypothyroidism. Continue levothyroxine as above. 6. Developmental delay. 7. Aphasia. 8. History of chronic obstructive pulmonary disease; pulmonary=[place] 9. 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
--- NOTE | 2019-03-12 12:00 | NUR ---
NURSE NOTES: SEEN BY PBrynnT. UP TO CHAIR X1 MAX ASSIST. EATING LUNCH IN CHAIR. NEW DIET STARTED; TOLERATING THICKENED LIQUIDS. NO COUGHING NOTED.
--- NOTE | 2019-03-12 12:19 | NUR ---
CASE MANAGEMENT: REVIEW 03/12/2019 SI:KNEE PAIN. UNSTEADY GAIT. UTI. T 98 HR 80 RR 18 B/P 147/78 SATS 97% ON RA K 3.3 CL 111 CA 8.1 IS: IVF @ 100 ml/HR LASIX PO BID NORVASC PO QD SYNTHROID PO Q24H MED/SURG DCP: PATIENT TO BE DISCHARGED TO HOME ONCE MEDICALLY CLEARED. PLAN OF CARE: CONTINUE PT EVAL
--- NOTE | 2019-03-12 12:24 | NUR ---
INSURANCE REVIEWS FAXED TO AUTH#[id number] FAX CLINICALS TO: [phone]
--- NOTE | 2019-03-12 12:50 | Pulmonology Progress Note ---
Assessment/Plan Problems: (1) Knee injury (2) COPD (chronic obstructive pulmonary disease) (3) Hypothyroidism (4) Developmental delay (5) HTN (hypertension) Assessment/Plan doing better all reviewed pain management Ortho evaluation titrate fio2 to sat of 92% monitor BP symptomatic treatment. Subjective Constitutional: Reports: no symptoms HEENT: Repors: no symptoms Respiratory: Reports: no symptoms Allergies: Coded Allergies: No Known Allergies (Unverified , 06/15/12) Objective Last 24 Hour Vital Signs Date Time Temp Pulse Resp B/P (MAP) Pulse Ox O2 Delivery O2 Flow Rate FiO2 03/12/19 11:43 98.0 80 18 147/78 (101) 97 03/12/19 09:00 Room Air 03/12/19 08:55 93 152/91 03/12/19 08:00 97.0 93 18 152/91 (111) 96 03/12/19 04:00 98.0 80 18 116/67 (83) 98 03/12/19 00:00 97.0 82 18 118/74 (89) 98 03/11/19 21:00 Room Air 03/11/19 20:15 97.8 84 17 108/47 (67) 95 03/11/19 16:00 97.7 76 20 143/67 (92) 99 Intake and Output 03/11/19 03/12/19 19:00 07:00 Intake Total 1460 ml 1620 ml Balance 1460 ml 1620 ml Intake Oral 360 ml 520 ml IV Total 1100 ml 1100 ml # Voids 4 2 General Appearance: WD/WN HEENT: normocephalic, atraumatic Respiratory/Chest: chest wall non-tender, lungs clear, normal breath sounds Cardiovascular: normal rate, regularly irregular Abdomen: normal bowel sounds, no organomegaly, non distended Microbiology Date/Time Source Procedure Growth Status 03/10/19 08:18 Nasal Nares 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 Complete 03/10/19 08:18 Rectum - Final NO CARBAPENEM-RESISTANT ENTEROBACTERI... Complete 03/10/19 08:18 Rectum VRE Culture - Final NO VANCOMYCIN RESISTANT ENTEROCOCCUS ... Complete Laboratory Tests 03/12/19 04:55: White Blood Count 6.9, Red Blood Count 3.78L, Hemoglobin 10.3L, Hematocrit 31.9L , Mean Corpuscular Volume 84, Mean Corpuscular Hemoglobin 27.1, Mean Corpuscular Hemoglobin Concent 32.2, Red Cell Distribution Width 15.2H, Platelet Count 254, Mean Platelet Volume 7.3, Neutrophils (%) (Auto) 65.2, Lymphocytes (%) (Auto) 13.7L, Monocytes (%) (Auto) 18.9H, Eosinophils (%) (Auto ) 1.5, Basophils (%) (Auto) 0.7, Sodium Level 145, Potassium Level 3.3L, Chloride Level 111H, Carbon Dioxide Level 27, Anion Gap 7, Blood Urea Nitrogen 14, Creatinine 1.1, Estimat Glomerular Filtration Rate , Glucose Level 93, Calcium Level 8.1L Current Medications Medications (Trade) Dose Ordered Sig/Brian Route PRN Reason Start Time Stop Time Status Last Admin Dose Admin Acetaminophen (Tylenol) 650 mg Q4H PRN ORAL fever 03/10/19 13:45 04/09/19 13:44 Amlodipine Besylate (Norvasc) 2.5 mg DAILY ORAL 03/11/19 09:00 04/10/19 08:59 03/12/19 08:55 Dextrose (Dextrose 50%) 25 ml Q30M PRN IV Hypoglycemia 03/10/19 13:45 04/09/19 13:43 Dextrose (Dextrose 50%) 50 ml Q30M PRN IV hypoglycemia 03/10/19 13:45 04/09/19 13:44 Furosemide (Lasix) 40 mg TWICE A DAY ORAL 03/10/19 18:00 04/09/19 17:59 03/12/19 08:55 Levothyroxine Sodium (Synthroid) 75 mcg Q24H ORAL 03/11/19 06:30 04/10/19 06:29 03/12/19 06:44 Lorazepam (Ativan 2mg/ml 1ml) 0.5 mg Q4H PRN IV For Anxiety 03/10/19 13:45 03/17/19 13:44 Morphine Sulfate (Morphine Sulfate) 1 mg Q4H PRN IVP For Pain 03/10/19 13:45 03/17/19 13:44 Ondansetron HCl (Zofran) 4 mg Q6H PRN IVP Nausea & Vomiting 03/10/19 13:45 04/09/19 13:44 Polyethylene Glycol (Miralax) 17 gm HSPRN PRN ORAL Constipation 03/10/19 13:45 04/09/19 13:44 Potassium Chloride (K-Dur) 40 meq ONCE ORAL 03/12/19 12:30 03/12/19 14:00 Sodium Chloride 1,000 ml @ 100 mls/hr Q10H IV 03/10/19 10:30 04/09/19 10:29 03/12/19 12:08 Zolpidem Tartrate (Ambien) 5 mg HSPRN PRN ORAL Insomnia 03/10/19 13:45 03/17/19 13:44 Yolanda Lazcano MD Mar 12, 2019 12:50
[2019-03-12] MEDS ORDERED: LORazepam Inj 2mg/ml 1ml IV SCH ×2 (14:45→16:00)
--- NOTE | 2019-03-12 15:30 | NUR ---
HAND-OFF: Report given to LEONEL Porter RN.
[2019-03-12 16:00] VITALS: BP 110/60
--- NOTE | 2019-03-12 16:27 | Cardiology Report ---
APPROVED REPORT EKG Measurement Heart [id number] Normal sinus rhythm Normal ECG
--- NOTE | 2019-03-12 17:01 | NUR ---
P.T NOTE: P.T EVALUATION COMPLETED AND TREATMENT INITIATED. PLEASE REFER TO P.T EVALUATION FOR CURRENT FUNCTIONAL STATUS. PATIENT IS ALERT, NON VERBAL HOWEVER RESPONDS TO NAME AND FOLLOWS SIMPLE ONE STEP COMMANDS THRU VERBAL , DEMONSTRATIONAL AND MANUAL CUES. NO SIGNS OF PAIN NOR DISCOMFORT HOWEVER HOWEVER APPEARED GENERALLY WEAK AND DECONDITIONED. PATIENT REQUIRED MOD A X 1 FOR BED MOBILITIES AND MAX A X 1 FOR OOB TO CHAIR TRANSFER MOBILITY USING STAND PIVOT TECH. PATIENT WAS ABLE TO STAND USING THE FWW HOWEVER UNABLE TO TAKE STEPS. SKILLED P.T SERVICE IS WARRANTED INCREASE MOBILITY INDEPENDENCE AND SAFETY. RECOMMEND SNF FOR FURTHER REHAB VS RETURN TO BOARD AND CARE FACILITY.
--- NOTE | 2019-03-12 19:00 | NUR ---
NURSE NOTES: sleeping. in no apparent distress.
--- NOTE | 2019-03-12 19:09 | NUR ---
HAND-OFF: Report given to ASHWINI Murphy RN.
[2019-03-12 20:00] VITALS: BP 119/71
[2019-03-13] VITALS: BP 127/74
[2019-03-13 04:00] VITALS: BP 131/59
[2019-03-13 06:36] LABS: BASOPHILS % (AUTO) 0.6 % (0.0-2.0); EOSINOPHILS % (AUTO) 2.5 % (0.0-3.0); HEMATOCRIT 34.8 % (42.0-52.0); HEMOGLOBIN 11.1 G/DL (14.2-18.0); LYMPHOCYTES % (AUTO) 16.3 % (20.0-45.0); MEAN CORPUSCULAR VOLUME 85 FL (80-99); MONOCYTES % (AUTO) 15.6 % (1.0-10.0); PLATELET COUNT 277 K/UL (150-450); RED BLOOD COUNT 4.11 M/UL (4.70-6.10); RED CELL DISTRIBUTION WIDTH 14.7 % (11.6-14.8); WHITE BLOOD COUNT 7.2 K/UL (4.8-10.8)
[2019-03-13 07:08] LABS: ANION GAP 11 mmol/L (5-15); BLOOD UREA NITROGEN 13 mg/dL (7-18); CALCIUM 8.6 MG/DL (8.5-10.1); CARBON DIOXIDE 26 MMOL/L (21-32); CHLORIDE 108 MMOL/L (98-107); POTASSIUM 3.4 MMOL/L (3.5-5.1); SODIUM 144 MMOL/L (136-145)
--- NOTE | 2019-03-13 07:40 | NUR ---
NURSE NOTES: Report received from Luz BARNARD, rounds made. Patient sleeping, calm. No distress on RA. IVF infusing (NS at 100 ml/hr) to LH, site asymptomatic. Condom catheter in place, draining y/cl urine to drainage bag. Bilateral SCDs on. Call light in reach, bed in lowest position, will continue to monitor.
[2019-03-13 08:00] VITALS: BP 134/64
[2019-03-13] MEDS: Furosemide 40mg tab ORAL SCH ×2 (09:57→18:39)
[2019-03-13 12:00] VITALS: BP 147/74
--- NOTE | 2019-03-13 12:20 | NUR ---
NURSE NOTES: Dr. Lazcano notified of K level 3.4 today, orders received for KDUR 40 MEQ PO x1, see eMAR. Administered, patient tolerated well.
--- NOTE | 2019-03-13 14:48 | NUR ---
CASE MANAGEMENT: REVIEW 03/13/2019 SI:KNEE PAIN. UNSTEADY GAIT. UTI. T 97.6 HR 88 RR 18 B/P 134/64 SATS 98% ON RA K 3.4 CL 108 IS: IVF @ 100 ml/HR LASIX PO BID NORVASC PO QD SYNTHROID PO Q24H MED/SURG DCP: PATIENT TO BE DISCHARGED TO HOME ONCE MEDICALLY CLEARED. PLAN OF CARE: MRI BRAIN
--- NOTE | 2019-03-13 14:50 | NUR ---
INSURANCE REVIEWS FAXED TO AUTH#[id number] FAX CLINICALS TO: [phone]
[2019-03-13 16:00] VITALS: BP 123/67
--- NOTE | 2019-03-13 17:42 | NUR ---
Concerning MRI...03/12 @ 1645 HRS SECOND DOSE OF ATIVAN WAS GIVEN. pt WAS NOT SLEEPY. HOWEVER ATTEMPTED TO DO EXAM. pt WAS UNABLE TO HOLD HEAD STILL. WAS NOT ABLE TO COMPLETE EXAM RN (LEONEL) WAS INFORMED AND WILL INFORM MD BARRON
--- NOTE | 2019-03-13 19:30 | NUR ---
HAND-OFF: Report given to Sandi BARNARD.
--- NOTE | 2019-03-13 19:35 | NUR ---
NURSE NOTES: Received report from EVON De Anda. Patient sleeping, respirations unlabored. Bed in low position, locked, side rails up x3, call light within reach. Patient easily arousable, alert to self only. Follows some directions. Repositioned for comfort.
[2019-03-13 20:00] VITALS: BP 128/69
--- NOTE | 2019-03-13 22:30 | NUR ---
NURSE NOTES: Patient incontinent of urine. Provided pericare, skin care, full linen change. Repositioned for comfort, SCDs off for one hour. Will continue to monitor.
[2019-03-14] VITALS: BP 128/68
--- NOTE | 2019-03-14 01:58 | NUR ---
NURSE NOTES: Asleep. No distress noted.
[2019-03-14 04:00] VITALS: BP 124/71
--- NOTE | 2019-03-14 04:15 | NUR ---
NURSE NOTES: Incontinent of urine, changed, partial linen change. Repositioned. SCDs on.
--- NOTE | 2019-03-14 07:30 | NUR ---
HAND-OFF: Report given to EVON Jimenez.
--- NOTE | 2019-03-14 07:57 | NUR ---
NURSE NOTES: Received report from EVON Junior. Rounding done with outgoing nurse. Pt is asleep. Left hand IV is patent. NS is running at this time. Bed is lowest position, call light within reach. Bed alarm is on. Will continue to monitor.
[2019-03-14 08:00] VITALS: BP 139/79
[2019-03-14] MEDS: Furosemide 40mg tab ORAL SCH ×2 (09:22→18:04)
--- NOTE | 2019-03-14 10:18 | NUR ---
CASE MANAGEMENT: REVIEW 03/14/2019 SI:KNEE PAIN. UNSTEADY GAIT. UTI. T 97.5 HR 82 RR 16 B/P 139/79 SATS 97% ON RA NO LABS TODAY IS: IVF @ 100 ml/HR LASIX PO BID NORVASC PO QD SYNTHROID PO Q24H MED/SURG DCP: PATIENT TO BE DISCHARGED TO HOME ONCE MEDICALLY CLEARED. PLAN OF CARE: MRI BRAIN >> PENDING
--- NOTE | 2019-03-14 10:21 | NUR ---
INSURANCE REVIEWS FAXED TO AUTH#[id number] FAX CLINICALS TO: [phone]
--- NOTE | 2019-03-14 11:08 | Pulmonology Progress Note ---
Assessment/Plan Problems: (1) Knee injury (2) COPD (chronic obstructive pulmonary disease) (3) Hypothyroidism (4) Developmental delay (5) HTN (hypertension) Assessment/Plan doing better all reviewed pain management Ortho evaluation titrate fio2 to sat of 92% monitor BP symptomatic treatment. Subjective ROS Limited/Unobtainable: No Constitutional: Reports: no symptoms HEENT: Repors: no symptoms Respiratory: Reports: no symptoms Allergies: Coded Allergies: No Known Allergies (Unverified , 06/15/12) Objective Last 24 Hour Vital Signs Date Time Temp Pulse Resp B/P (MAP) Pulse Ox O2 Delivery O2 Flow Rate FiO2 03/14/19 09:22 82 139/79 03/14/19 08:00 97.7 82 16 139/79 (99) 97 03/14/19 04:00 97.5 83 16 124/71 (88) 96 03/14/19 00:00 98.1 82 19 128/68 (88) 96 03/13/19 21:00 Room Air 03/13/19 20:00 98.6 79 17 128/69 (88) 97 03/13/19 16:00 98.3 85 18 123/67 (85) 96 03/13/19 12:00 98.2 85 18 147/74 (98) 97 Intake and Output 03/13/19 03/14/19 18:59 06:59 Intake Total 1920 ml 1460 ml Output Total 125 ml Balance 1795 ml 1460 ml Intake Oral 720 ml 360 ml IV Total 1200 ml 1100 ml Output Urine Total 125 ml # Voids 4 3 General Appearance: WD/WN HEENT: normocephalic, atraumatic Respiratory/Chest: chest wall non-tender, lungs clear Cardiovascular: normal peripheral pulses, normal rate Abdomen: normal bowel sounds, no organomegaly Extremities: no cyanosis Skin: no rash Current Medications Medications (Trade) Dose Ordered Sig/Brian Route PRN Reason Start Time Stop Time Status Last Admin Dose Admin Acetaminophen (Tylenol) 650 mg Q4H PRN ORAL fever 03/10/19 13:45 04/09/19 13:44 Amlodipine Besylate (Norvasc) 2.5 mg DAILY ORAL 03/11/19 09:00 04/10/19 08:59 03/14/19 09:22 Dextrose (Dextrose 50%) 25 ml Q30M PRN IV Hypoglycemia 03/10/19 13:45 04/09/19 13:43 Dextrose (Dextrose 50%) 50 ml Q30M PRN IV hypoglycemia 03/10/19 13:45 04/09/19 13:44 Furosemide (Lasix) 40 mg TWICE A DAY ORAL 03/10/19 18:00 04/09/19 17:59 03/14/19 09:22 Levothyroxine Sodium (Synthroid) 75 mcg Q24H ORAL 03/11/19 06:30 04/10/19 06:29 03/14/19 06:46 Lorazepam (Ativan 2mg/ml 1ml) 0.5 mg Q4H PRN IV For Anxiety 03/10/19 13:45 03/17/19 13:44 Morphine Sulfate (Morphine Sulfate) 1 mg Q4H PRN IVP For Pain 03/10/19 13:45 03/17/19 13:44 Ondansetron HCl (Zofran) 4 mg Q6H PRN IVP Nausea & Vomiting 03/10/19 13:45 04/09/19 13:44 Polyethylene Glycol (Miralax) 17 gm HSPRN PRN ORAL Constipation 03/10/19 13:45 04/09/19 13:44 Sodium Chloride 1,000 ml @ 100 mls/hr Q10H IV 03/10/19 10:30 04/09/19 10:29 03/14/19 07:48 Zolpidem Tartrate (Ambien) 5 mg HSPRN PRN ORAL Insomnia 03/10/19 13:45 03/17/19 13:44 Yolanda Lazcano MD Mar 14, 2019 11:08
[2019-03-14] MEDS ORDERED: ACETAMINOPHEN-1 EAC1 ORAL (11:11)
[2019-03-14 12:00] VITALS: BP 160/86
--- NOTE | 2019-03-14 12:50 | NUR ---
NURSE NOTES: BP 160/[address] Lazcano was notified. ordered clonidine 0.1mg q6 prn for sbp greater than 160. Noted and carried out.
--- NOTE | 2019-03-14 13:43 | Internal Med Progress Note ---
Subjective Physician Name BienvenidoLibrado Attending Physician Chicho Ring MD Current Medications Medications (Trade) Dose Ordered Sig/Brian Route PRN Reason Start Time Stop Time Status Last Admin Dose Admin Acetaminophen (Tylenol) 650 mg Q4H PRN ORAL fever 03/10/19 13:45 04/09/19 13:44 Amlodipine Besylate (Norvasc) 2.5 mg DAILY ORAL 03/11/19 09:00 04/10/19 08:59 03/14/19 09:22 Clonidine HCl (Catapres Tab) 0.1 mg Q6H PRN ORAL SBP >160 03/14/19 13:00 04/13/19 12:59 Dextrose (Dextrose 50%) 25 ml Q30M PRN IV Hypoglycemia 03/10/19 13:45 04/09/19 13:43 Dextrose (Dextrose 50%) 50 ml Q30M PRN IV hypoglycemia 03/10/19 13:45 04/09/19 13:44 Furosemide (Lasix) 40 mg TWICE A DAY ORAL 03/10/19 18:00 04/09/19 17:59 03/14/19 09:22 Levothyroxine Sodium (Synthroid) 75 mcg Q24H ORAL 03/11/19 06:30 04/10/19 06:29 03/14/19 06:46 Lorazepam (Ativan 2mg/ml 1ml) 0.5 mg Q4H PRN IV For Anxiety 03/10/19 13:45 03/17/19 13:44 Morphine Sulfate (Morphine Sulfate) 1 mg Q4H PRN IVP For Pain 03/10/19 13:45 03/17/19 13:44 Ondansetron HCl (Zofran) 4 mg Q6H PRN IVP Nausea & Vomiting 03/10/19 13:45 04/09/19 13:44 Polyethylene Glycol (Miralax) 17 gm HSPRN PRN ORAL Constipation 03/10/19 13:45 04/09/19 13:44 Sodium Chloride 1,000 ml @ 100 mls/hr Q10H IV 03/10/19 10:30 04/09/19 10:29 03/14/19 07:48 Zolpidem Tartrate (Ambien) 5 mg HSPRN PRN ORAL Insomnia 03/10/19 13:45 03/17/19 13:44 Allergies: Coded Allergies: No Known Allergies (Unverified , 06/15/12) Subjective awake, responsive with single word, No CP or SOB, unable to ambulate. Objective Last Vital Signs Date Time Temp Pulse Resp B/P (MAP) Pulse Ox O2 Delivery O2 Flow Rate FiO2 03/14/19 12:00 97.1 98 16 160/86 (110) 97 03/14/19 09:00 Room Air Intake and Output 03/13/19 03/14/19 19:00 07:00 Intake Total 1820 ml 1460 ml Output Total 125 ml Balance 1695 ml 1460 ml Intake Oral 720 ml 360 ml IV Total 1100 ml 1100 ml Output Urine Total 125 ml # Voids 4 3 Objective General: No acute distress, awake and responsive with open eyes. HEENT: NCAT, sclera anicteric, PERRL, EOMI. Neck: Supple, no significant jugular venous distention, Lungs: fair inspiratory effort, Decrease air at base, no Wheeze or Rales. Heart: Regular rate and rhythm, normal S1/S2, no murmur. Abdomen: soft, nontender, nondistended. Normoactive bowel sounds. / Rectal: Refused and deferred. Extremities: No Cyanosis , clubbing or edema. Neuro: A&O x 3, Able to move all extremities, weakness of lower extremities, Skin: warm, no rash. Assessment/Plan Assessment/Plan 1. Right knee pain. 2. Fall injury. 3. Congestive heart failure. 4. Hypertension. 5. Coronary artery disease. 6. Hypothyroidism. 7. History of cellulitis, right lower extremity. 8. Developmental delay. 9. Aphasia 10. Hypokalemia. Plan: Unable to discharge to boarding care , consider DC to SNF. monitor labs PT Mobility Librado Faria MD Mar 14, 2019 13:43
--- NOTE | 2019-03-14 13:55 | NUR ---
NURSE NOTES: RN received a call from the assisted living facility patient will not be accepted unless he is able to ambulate MD aware SNF placement order placed by Dr. Bienvenido Parks notified of the new order.
--- NOTE | 2019-03-14 14:17 | NUR ---
DISCHARGE PLANNING: NOTE CM ORDER NOTED CLINICALS FAXED TO [facility] T: [phone] F [phone] [facility] T [phone] F [phone] [facility] F: [phone] [facility] T [phone] F [phone]
[2019-03-14 16:00] VITALS: BP 136/70
--- NOTE | 2019-03-14 16:26 | NUR ---
DISCHARGE PLANNING Discharge order noted [facility] SPOKE TO W[facility] ADMISSIONS CLOSED TODAY 03/14/19 [facility] SPOKE TO JONATAN MENDOZA REVIEW AND FOLLOW UP WITH DION SUNDAY [facility] SPOKE WITH BRENDA NO MALE BED AVAILABLE [facility] NO ANSWER
--- NOTE | 2019-03-14 19:54 | NUR ---
HAND-OFF: Report given to EVON Cortez.
[2019-03-14 20:00] VITALS: BP 123/63
--- NOTE | 2019-03-14 21:00 | NUR ---
NURSE NOTES: Receive a report from EVON Jimenez. Done rounds. Pt is awake lying non-verbal state but intact eye contact. No acute distress noted. No pain noted at this time. Bed-ridden state with rigidity. Condom catheter is removed and pt is incontinent. Skin is intact except redness on scrotal area. Keep dry and clean. Apply Calamize lotion. Turning position change q 2hrs. Bed is locked and lowest. Will continue to monitor.
[2019-03-15] VITALS: BP 112/44
[2019-03-15 04:00] VITALS: BP 130/65
--- NOTE | 2019-03-15 06:01 | Pulmonology Progress Note ---
Assessment/Plan Problems: (1) Knee injury (2) COPD (chronic obstructive pulmonary disease) (3) Hypothyroidism (4) Developmental delay (5) HTN (hypertension) Assessment/Plan Pt's RCFE doens't can't accommodate him any more. He needs a different RCFE or fpc placement. all reviewed pain management Ortho evaluation titrate fio2 to sat of 92% monitor BP symptomatic treatment. Subjective ROS Limited/Unobtainable: No Constitutional: Reports: no symptoms HEENT: Repors: no symptoms Allergies: Coded Allergies: No Known Allergies (Unverified , 06/15/12) Objective Last 24 Hour Vital Signs Date Time Temp Pulse Resp B/P (MAP) Pulse Ox O2 Delivery O2 Flow Rate FiO2 03/15/19 04:00 97.9 76 18 130/65 (86) 99 03/15/19 00:00 97.9 71 18 112/44 (66) 97 03/14/19 21:00 Room Air 03/14/19 20:00 97.6 75 18 123/63 (83) 98 03/14/19 16:00 98.0 87 18 136/70 (92) 97 03/14/19 13:45 160/86 03/14/19 12:00 97.1 98 16 160/86 (110) 97 03/14/19 09:22 82 139/79 03/14/19 09:00 Room Air 03/14/19 08:00 97.7 82 16 139/79 (99) 97 Intake and Output 03/14/19 03/15/19 19:00 07:00 Intake Total 1980 ml Balance 1980 ml Intake Oral 1080 ml IV Total 900 ml # Voids 101 General Appearance: WD/WN HEENT: normocephalic Respiratory/Chest: chest wall non-tender, normal breath sounds Cardiovascular: normal peripheral pulses, normal rate Abdomen: normal bowel sounds, soft, non tender Genitourinary: normal external genitalia Extremities: no cyanosis Skin: no lesions Current Medications Medications (Trade) Dose Ordered Sig/Brian Route PRN Reason Start Time Stop Time Status Last Admin Dose Admin Acetaminophen (Tylenol) 650 mg Q4H PRN ORAL fever 03/10/19 13:45 04/09/19 13:44 Amlodipine Besylate (Norvasc) 2.5 mg DAILY ORAL 03/11/19 09:00 04/10/19 08:59 03/14/19 09:22 Clonidine HCl (Catapres Tab) 0.1 mg Q6H PRN ORAL SBP >160 03/14/19 13:00 04/13/19 12:59 03/14/19 13:45 Dextrose (Dextrose 50%) 25 ml Q30M PRN IV Hypoglycemia 03/10/19 13:45 04/09/19 13:43 Dextrose (Dextrose 50%) 50 ml Q30M PRN IV hypoglycemia 03/10/19 13:45 04/09/19 13:44 Furosemide (Lasix) 40 mg TWICE A DAY ORAL 03/10/19 18:00 04/09/19 17:59 03/14/19 18:04 Levothyroxine Sodium (Synthroid) 75 mcg Q24H ORAL 03/11/19 06:30 04/10/19 06:29 03/14/19 06:46 Lorazepam (Ativan 2mg/ml 1ml) 0.5 mg Q4H PRN IV For Anxiety 03/10/19 13:45 03/17/19 13:44 Morphine Sulfate (Morphine Sulfate) 1 mg Q4H PRN IVP For Pain 03/10/19 13:45 03/17/19 13:44 Ondansetron HCl (Zofran) 4 mg Q6H PRN IVP Nausea & Vomiting 03/10/19 13:45 04/09/19 13:44 Polyethylene Glycol (Miralax) 17 gm HSPRN PRN ORAL Constipation 03/10/19 13:45 04/09/19 13:44 Sodium Chloride 1,000 ml @ 100 mls/hr Q10H IV 03/10/19 10:30 04/09/19 10:29 03/14/19 22:27 Zolpidem Tartrate (Ambien) 5 mg HSPRN PRN ORAL Insomnia 03/10/19 13:45 03/17/19 13:44 Yolanda Lazcano MD Mar 15, 2019 06:01
--- NOTE | 2019-03-15 07:15 | NUR ---
HAND-OFF: Report given to EVON Jimenez. Done rounds.
--- NOTE | 2019-03-15 07:29 | NUR ---
NURSE NOTES: Received report from EVON Zapien. Patient is asleep. Bed alarm is on. Will continue to monitor.
[2019-03-15 08:00] VITALS: BP 102/61
[2019-03-15 08:07] LABS: ALANINE AMINOTRANSFERASE 29 U/L (12-78); ALBUMIN 2.3 G/DL (3.4-5.0); ALBUMIN/GLOBULIN RATIO 0.5 (1.0-2.7); ALKALINE PHOSPHATASE 83 U/L (46-116); ANION GAP 5 mmol/L (5-15); ASPARTATE AMINO TRANSFERASE 37 U/L (15-37); BILIRUBIN,TOTAL 0.7 MG/DL (0.2-1.0); BLOOD UREA NITROGEN 13 mg/dL (7-18); CALCIUM 8.4 MG/DL (8.5-10.1); CARBON DIOXIDE 29 MMOL/L (21-32); CHLORIDE 105 MMOL/L (98-107); CREATININE 0.9 MG/DL (0.55-1.30); PHOSPHORUS 2.6 MG/DL (2.5-4.9); POTASSIUM 3.3 MMOL/L (3.5-5.1); SODIUM 139 MMOL/L (136-145)
[2019-03-15] MEDS: Furosemide 40mg tab ORAL SCH ×2 (09:41→17:16)
[2019-03-15 12:00] VITALS: BP 152/70
--- NOTE | 2019-03-15 15:15 | Internal Med Progress Note ---
Subjective Physician Name BienvenidoLibrado Attending Physician Chicho Ring MD Current Medications Medications (Trade) Dose Ordered Sig/Brian Route PRN Reason Start Time Stop Time Status Last Admin Dose Admin Acetaminophen (Tylenol) 650 mg Q4H PRN ORAL fever 03/10/19 13:45 04/09/19 13:44 Amlodipine Besylate (Norvasc) 2.5 mg DAILY ORAL 03/11/19 09:00 04/10/19 08:59 03/15/19 12:14 Clonidine HCl (Catapres Tab) 0.1 mg Q6H PRN ORAL SBP >160 03/14/19 13:00 04/13/19 12:59 03/14/19 13:45 Dextrose (Dextrose 50%) 25 ml Q30M PRN IV Hypoglycemia 03/10/19 13:45 04/09/19 13:43 Dextrose (Dextrose 50%) 50 ml Q30M PRN IV hypoglycemia 03/10/19 13:45 04/09/19 13:44 Furosemide (Lasix) 40 mg TWICE A DAY ORAL 03/10/19 18:00 04/09/19 17:59 03/15/19 09:41 Levothyroxine Sodium (Synthroid) 75 mcg Q24H ORAL 03/11/19 06:30 04/10/19 06:29 03/15/19 06:49 Lorazepam (Ativan 2mg/ml 1ml) 0.5 mg Q4H PRN IV For Anxiety 03/10/19 13:45 03/17/19 13:44 Morphine Sulfate (Morphine Sulfate) 1 mg Q4H PRN IVP For Pain 03/10/19 13:45 03/17/19 13:44 Ondansetron HCl (Zofran) 4 mg Q6H PRN IVP Nausea & Vomiting 03/10/19 13:45 04/09/19 13:44 Polyethylene Glycol (Miralax) 17 gm HSPRN PRN ORAL Constipation 03/10/19 13:45 04/09/19 13:44 Sodium Chloride 1,000 ml @ 100 mls/hr Q10H IV 03/10/19 10:30 04/09/19 10:29 03/15/19 09:41 Zolpidem Tartrate (Ambien) 5 mg HSPRN PRN ORAL Insomnia 03/10/19 13:45 03/17/19 13:44 Allergies: Coded Allergies: No Known Allergies (Unverified , 06/15/12) Subjective awake, responsive with open eyes, not verbal, Denies CP or SOB, unable to ambulate. K: 3.3 Objective Last Vital Signs Date Time Temp Pulse Resp B/P (MAP) Pulse Ox O2 Delivery O2 Flow Rate FiO2 03/15/19 12:14 80 152/70 03/15/19 12:00 97.2 19 98 03/15/19 09:00 Room Air Laboratory Tests Test 03/15/19 06:03 Sodium Level 139 MMOL/L (136-145) Potassium Level 3.3 MMOL/L (3.5-5.1) L Chloride Level 105 MMOL/L (98-107) Carbon Dioxide Level 29 MMOL/L (21-32) Anion Gap 5 mmol/L (5-15) Blood Urea Nitrogen 13 mg/dL (7-18) Creatinine 0.9 MG/DL (0.55-1.30) Estimat Glomerular Filtration Rate mL/min (>60) Glucose Level 94 MG/DL (74-106) Calcium Level 8.4 MG/DL (8.5-10.1) L Phosphorus Level 2.6 MG/DL (2.5-4.9) Magnesium Level 1.9 MG/DL (1.8-2.4) Total Bilirubin 0.7 MG/DL (0.2-1.0) Aspartate Amino Transf (AST/SGOT) 37 U/L (15-37) Alanine Aminotransferase (ALT/SGPT) 29 U/L (12-78) Alkaline Phosphatase 83 U/L (46-116) Total Protein 6.5 G/DL (6.4-8.2) Albumin 2.3 G/DL (3.4-5.0) L Globulin 4.2 g/dL Albumin/Globulin Ratio 0.5 (1.0-2.7) L Intake and Output 03/14/19 03/15/19 18:59 06:59 Intake Total 1980 ml 100 ml Balance 1980 ml 100 ml Intake Oral 1080 ml 100 ml IV Total 900 ml # Voids 101 4 Objective General: No acute distress, awake and responsive with open eyes. HEENT: NCAT, sclera anicteric, PERRL, EOMI. Neck: Supple, no significant jugular venous distention, Lungs: fair inspiratory effort, Decrease air at base, no Wheeze or Rales. Heart: Regular rate and rhythm, normal S1/S2, no murmur. Abdomen: soft, nontender, nondistended. Normoactive bowel sounds. Extremities: No Cyanosis , clubbing or edema. Neuro: A&O x 3, Able to move all extremities, weakness of lower extremities, Skin: warm, no rash. Assessment/Plan Assessment/Plan 1. Right knee pain. 2. Fall injury. 3. Congestive heart failure. 4. Hypertension. 5. Coronary artery disease. 6. Hypothyroidism. 7. History of cellulitis, right lower extremity. 8. Developmental delay. 9. Aphasia 10. Hypokalemia. Plan: Discharge planning to SNF. monitor labs PT Mobility Kcl supplements Librado Faria MD Mar 15, 2019 15:15
[2019-03-15 15:54] VITALS: BP 124/64
--- NOTE | 2019-03-15 19:39 | NUR ---
HAND-OFF: Report given to EVON Cortez. Patient is stable.
--- NOTE | 2019-03-15 19:40 | NUR ---
NURSE NOTES: Receive a report from EVON Jimenez. Done rounds. Pt is awake but non-verbal with intact eye contacts. No noted acute distress. Breathing is even and non labored. No pain noted. Condom catheter is on with yellowish urine drained without hematuria or sediments. Bed-bound with body rigidity. Call light within reach. Bed is locked and lowest position. Will continue to monitor.
[2019-03-15 20:00] VITALS: BP 111/47
[2019-03-16] VITALS: BP 135/82
[2019-03-16 04:00] VITALS: BP 130/65
--- NOTE | 2019-03-16 07:30 | NUR ---
HAND-OFF: Report given to EVON Diaz. Done rounds.
--- NOTE | 2019-03-16 07:42 | Pulmonology Progress Note ---
Assessment/Plan Problems: (1) Knee injury (2) COPD (chronic obstructive pulmonary disease) (3) Hypothyroidism (4) Developmental delay (5) HTN (hypertension) Assessment/Plan Pt's RCFE doens't can't accommodate him any more. He needs a different RCFE or residential placement. all reviewed pain management Ortho evaluation titrate fio2 to sat of 92% monitor BP symptomatic treatment. dc planning in progress Subjective ROS Limited/Unobtainable: No Constitutional: Reports: no symptoms HEENT: Repors: no symptoms Respiratory: Reports: no symptoms Allergies: Coded Allergies: No Known Allergies (Unverified , 06/15/12) Objective Last 24 Hour Vital Signs Date Time Temp Pulse Resp B/P (MAP) Pulse Ox O2 Delivery O2 Flow Rate FiO2 03/16/19 04:00 97.9 83 18 130/65 (86) 97 03/16/19 00:00 98.0 85 18 135/82 (99) 97 03/15/19 21:00 Room Air 03/15/19 20:00 97.6 79 18 111/47 (68) 97 03/15/19 15:54 98.6 82 18 124/64 (84) 97 03/15/19 12:14 80 152/70 03/15/19 12:00 97.2 80 19 152/70 (97) 98 03/15/19 09:00 Room Air 03/15/19 08:00 98.1 76 18 102/61 (75) 96 Intake and Output 03/15/19 03/16/19 19:00 07:00 Intake Total 1616 ml 1020 ml Output Total 400 ml 710 ml Balance 1216 ml 310 ml Intake Oral 716 ml 120 ml IV Total 900 ml 900 ml Output Urine Total 400 ml 710 ml # Voids 3 # Bowel Movements 1 Objective General Appearance: WD/WN HEENT: normocephalic Respiratory/Chest: chest wall non-tender, normal breath sounds Cardiovascular: normal peripheral pulses, normal rate Abdomen: normal bowel sounds, soft, non tender Genitourinary: normal external genitalia Extremities: no cyanosis Skin: no lesions Current Medications Medications (Trade) Dose Ordered Sig/Brian Route PRN Reason Start Time Stop Time Status Last Admin Dose Admin Acetaminophen (Tylenol) 650 mg Q4H PRN ORAL fever 03/10/19 13:45 04/09/19 13:44 Amlodipine Besylate (Norvasc) 2.5 mg DAILY ORAL 03/11/19 09:00 04/10/19 08:59 03/15/19 12:14 Clonidine HCl (Catapres Tab) 0.1 mg Q6H PRN ORAL SBP >160 03/14/19 13:00 04/13/19 12:59 03/14/19 13:45 Dextrose (Dextrose 50%) 25 ml Q30M PRN IV Hypoglycemia 03/10/19 13:45 04/09/19 13:43 Dextrose (Dextrose 50%) 50 ml Q30M PRN IV hypoglycemia 03/10/19 13:45 04/09/19 13:44 Furosemide (Lasix) 40 mg TWICE A DAY ORAL 03/10/19 18:00 04/09/19 17:59 03/15/19 17:16 Levothyroxine Sodium (Synthroid) 75 mcg Q24H ORAL 03/11/19 06:30 04/10/19 06:29 03/16/19 06:17 Lorazepam (Ativan 2mg/ml 1ml) 0.5 mg Q4H PRN IV For Anxiety 03/10/19 13:45 03/17/19 13:44 Morphine Sulfate (Morphine Sulfate) 1 mg Q4H PRN IVP For Pain 03/10/19 13:45 03/17/19 13:44 Ondansetron HCl (Zofran) 4 mg Q6H PRN IVP Nausea & Vomiting 03/10/19 13:45 04/09/19 13:44 Polyethylene Glycol (Miralax) 17 gm HSPRN PRN ORAL Constipation 03/10/19 13:45 04/09/19 13:44 Potassium Chloride (K-Dur) 20 meq DAILY ORAL 03/16/19 09:00 04/15/19 08:59 Sodium Chloride 1,000 ml @ 100 mls/hr Q10H IV 03/10/19 10:30 04/09/19 10:29 03/16/19 04:38 Zolpidem Tartrate (Ambien) 5 mg HSPRN PRN ORAL Insomnia 03/10/19 13:45 03/17/19 13:44 Yolanda Lazcano MD Mar 16, 2019 07:42
--- NOTE | 2019-03-16 08:00 | NUR ---
NURSE NOTES: Received report Diego BARNARD, pt a/a/o laying bed with no signs of distress or other issues at this time. IV on the right wrist gauge#22 intact. condom cath in place. call light within reach, bed in lowest position, side rales up x2, I will f/u as needed.
[2019-03-16 08:32] VITALS: BP 133/58
[2019-03-16] MEDS: Furosemide 40mg tab ORAL SCH ×2 (08:55→17:42)
[2019-03-16 11:41] VITALS: BP 137/68
--- NOTE | 2019-03-16 13:59 | NUR ---
P.T Note:late entry 0945 Pt received in supine position, no sign of distress nor discomfort however pt became apprehensive upon attempt to move R Hip in transitioning to stand and ambulate. Pt became resistive and verbalized " no walking ". Skin integrity assessed noted increased swelling and hematoma located on the R medial thigh and R greater trochanter. Pt was able to stand using the FWW however unable to bear weight on the RLE as R hip in marked external rotation. . Assisted patient back to bed after pt patient tolerated sitting in the chair recliner x 2 hrs. Pt positioned in maximum comfort position with call light within reach.Nursing notified of the above findings P.T suggest x-ray of the R hip to R/O hip fx.
--- NOTE | 2019-03-16 15:04 | Internal Med Progress Note ---
Subjective Physician Name BienvenidoLibrado Attending Physician Chicho Ring MD Current Medications Medications (Trade) Dose Ordered Sig/Brian Route PRN Reason Start Time Stop Time Status Last Admin Dose Admin Acetaminophen (Tylenol) 650 mg Q4H PRN ORAL fever 03/10/19 13:45 04/09/19 13:44 Amlodipine Besylate (Norvasc) 2.5 mg DAILY ORAL 03/11/19 09:00 04/10/19 08:59 03/16/19 08:55 Clonidine HCl (Catapres Tab) 0.1 mg Q6H PRN ORAL SBP >160 03/14/19 13:00 04/13/19 12:59 03/14/19 13:45 Dextrose (Dextrose 50%) 25 ml Q30M PRN IV Hypoglycemia 03/10/19 13:45 04/09/19 13:43 Dextrose (Dextrose 50%) 50 ml Q30M PRN IV hypoglycemia 03/10/19 13:45 04/09/19 13:44 Furosemide (Lasix) 40 mg TWICE A DAY ORAL 03/10/19 18:00 04/09/19 17:59 03/16/19 08:55 Levothyroxine Sodium (Synthroid) 75 mcg Q24H ORAL 03/11/19 06:30 04/10/19 06:29 03/16/19 06:17 Lorazepam (Ativan 2mg/ml 1ml) 0.5 mg Q4H PRN IV For Anxiety 03/10/19 13:45 03/17/19 13:44 Morphine Sulfate (Morphine Sulfate) 1 mg Q4H PRN IVP For Pain 03/10/19 13:45 03/17/19 13:44 Ondansetron HCl (Zofran) 4 mg Q6H PRN IVP Nausea & Vomiting 03/10/19 13:45 04/09/19 13:44 Polyethylene Glycol (Miralax) 17 gm HSPRN PRN ORAL Constipation 03/10/19 13:45 04/09/19 13:44 Potassium Chloride (K-Dur) 20 meq DAILY ORAL 03/16/19 09:00 04/15/19 08:59 03/16/19 08:54 Sodium Chloride 1,000 ml @ 100 mls/hr Q10H IV 03/10/19 10:30 04/09/19 10:29 03/16/19 04:38 Zolpidem Tartrate (Ambien) 5 mg HSPRN PRN ORAL Insomnia 03/10/19 13:45 03/17/19 13:44 Allergies: Coded Allergies: No Known Allergies (Unverified , 06/15/12) Subjective awake, more responsive, talking, Denies CP or SOB. Objective Last Vital Signs Date Time Temp Pulse Resp B/P (MAP) Pulse Ox O2 Delivery O2 Flow Rate FiO2 03/16/19 11:41 98.2 71 19 137/68 (91) 98 03/16/19 09:00 Room Air Intake and Output 03/15/19 03/16/19 18:59 06:59 Intake Total 1616 ml 1020 ml Output Total 400 ml 710 ml Balance 1216 ml 310 ml Intake Oral 716 ml 120 ml IV Total 900 ml 900 ml Output Urine Total 400 ml 710 ml # Voids 3 # Bowel Movements 1 Objective General: No acute distress, awake and more responsive . HEENT: NCAT, sclera anicteric, PERRL, EOMI. Neck: Supple, no significant jugular venous distention, Lungs: fair inspiratory effort, Decrease air at base, no Wheeze or Rales. Heart: Regular rate and rhythm, normal S1/S2, no murmur. Abdomen: soft, nontender, nondistended. Normoactive bowel sounds. : Lindsay cath. Extremities: No Cyanosis , clubbing or edema. Neuro: A&O x 3, Able to move all extremities, weakness of lower extremities, Skin: warm, no rash. Assessment/Plan Assessment/Plan 1. Right knee pain. 2. Fall injury. 3. Congestive heart failure. 4. Hypertension. 5. Coronary artery disease. 6. Hypothyroidism. 7. History of cellulitis, right lower extremity. 8. Developmental delay. 9. Aphasia 10. Hypokalemia. Plan: Discharge planning to SNF. monitor labs PT Mobility X ray of hips Librado Faria MD Mar 16, 2019 15:04
[2019-03-16 16:12] VITALS: BP 144/61
--- NOTE | 2019-03-16 19:38 | NUR ---
HAND-OFF: Report given to Diego BARNARD, pt in stable condition.
--- NOTE | 2019-03-16 19:40 | NUR ---
NURSE NOTES: Receive a report from EVON Diaz. Done round. Condom catheter is on with yellowish urine drained. Will continue to monitor.
[2019-03-16 20:00] VITALS: BP 124/64
--- NOTE | 2019-03-16 21:00 | NUR ---
NURSE NOTES: Pt repeats asleep and awake. No noted verbal response except eye contacts. Bed bound. Position change q 2hrs to keep skin integrity. No skin issues noted. Right leg swelling noted. Keep elevated with pillow. No face grimacing or moaning noted. Plan to take x-ray on bilateral hips. Bed is locked and lowest position. Call light within reach. Pt room is close to nursing station. Will continue to monitor.
[2019-03-17] VITALS (7 sets, daily range): BP systolic 106–158; BP diastolic 64–79
[2019-03-17 06:10] LABS: BASOPHILS % (AUTO) 0.8 % (0.0-2.0); HEMATOCRIT 34.7 % (42.0-52.0); HEMOGLOBIN 11.1 G/DL (14.2-18.0); LYMPHOCYTES % (AUTO) 15.6 % (20.0-45.0); MEAN CORPUSCULAR VOLUME 85 FL (80-99); MONOCYTES % (AUTO) 12.5 % (1.0-10.0); NEUTROPHILS % (AUTO) 67.2 % (45.0-75.0); PLATELET COUNT 317 K/UL (150-450); RED BLOOD COUNT 4.08 M/UL (4.70-6.10); RED CELL DISTRIBUTION WIDTH 14.6 % (11.6-14.8)
[2019-03-17 06:23] LABS: ALANINE AMINOTRANSFERASE 28 U/L (12-78); ALBUMIN 2.1 G/DL (3.4-5.0); ALBUMIN/GLOBULIN RATIO 0.5 (1.0-2.7); ALKALINE PHOSPHATASE 93 U/L (46-116); ANION GAP 7 mmol/L (5-15); BILIRUBIN,TOTAL 0.5 MG/DL (0.2-1.0); BLOOD UREA NITROGEN 14 mg/dL (7-18); CALCIUM 8.4 MG/DL (8.5-10.1); CARBON DIOXIDE 28 MMOL/L (21-32); CHLORIDE 108 MMOL/L (98-107); CREATININE 1.1 MG/DL (0.55-1.30); PHOSPHORUS 2.8 MG/DL (2.5-4.9); POTASSIUM 3.2 MMOL/L (3.5-5.1); SODIUM 143 MMOL/L (136-145)
[2019-03-17 06:36] LABS: ASPARTATE AMINO TRANSFERASE 34 U/L (15-37)
--- NOTE | 2019-03-17 07:30 | NUR ---
HAND-OFF: Report given to EVON Diaz. Done round.
--- NOTE | 2019-03-17 08:00 | NUR ---
NURSE NOTES: Received report from Diego BARNARD. pt a/a/o laying in bed with no signs of distress or other issues at this time. pt able to tolerate his diet with signs of n/v. condom cath in place draining well. plan for Xray to r/o hip fx. call light within reach, bed in lowest position, side rales up x2. i will f/u as needed.
[2019-03-17] MEDS: Furosemide 40mg tab ORAL SCH ×2 (08:39→17:15)
--- NOTE | 2019-03-17 10:30 | Diagnostic Imaging Report ---
Indication: Pain, status post fall Technique: One view the pelvis, 2 views of both hips Comparison: none Findings: There is a fracture of the right femur. This involves the distal neck as well as the greater trochanter. Uncertain as to whether the lesser trochanter is involved. Fracture appears to be comminuted. No associated pelvic fracture. No left hip fracture. The joint spaces are preserved. Impression: Right hip fracture. This borders on being a distal femoral neck fracture versus intertrochanteric fracture. Dr. Faria notified of the findings at the time of interpretation
--- NOTE | 2019-03-17 10:31 | NUR ---
RADIOLOGY DEPT, PELVIS AND BILATERAL HIPS IMAGED.-P.DYE
--- NOTE | 2019-03-17 10:36 | Pulmonology Progress Note ---
Assessment/Plan Problems: (1) Knee injury (2) COPD (chronic obstructive pulmonary disease) (3) Hypothyroidism (4) Developmental delay (5) HTN (hypertension) Assessment/Plan pt needs total care. Needs placement at a facility that can provide the care for all ADL all reviewed pain management titrate fio2 to sat of 92% monitor BP symptomatic treatment. dc planning in progress Subjective ROS Limited/Unobtainable: No Constitutional: Reports: no symptoms Respiratory: Reports: no symptoms Allergies: Coded Allergies: No Known Allergies (Unverified , 06/15/12) Objective Last 24 Hour Vital Signs Date Time Temp Pulse Resp B/P (MAP) Pulse Ox O2 Delivery O2 Flow Rate FiO2 03/17/19 08:39 90 106/64 03/17/19 04:24 98.1 86 20 158/72 (100) 99 03/17/19 00:30 97.6 85 18 122/79 (93) 98 03/16/19 21:00 Room Air 03/16/19 20:00 97.5 86 18 124/64 (84) 97 03/16/19 16:12 98.6 85 20 144/61 (88) 94 03/16/19 11:41 98.2 71 19 137/68 (91) 98 Intake and Output 03/16/19 03/17/19 19:00 07:00 Intake Total 1350 ml 850 ml Output Total 450 ml 1140 ml Balance 900 ml -290 ml Intake Oral 350 ml IV Total 1000 ml 850 ml Output Urine Total 450 ml 1140 ml Objective General Appearance: WD/WN HEENT: normocephalic Respiratory/Chest: chest wall non-tender, normal breath sounds Cardiovascular: normal peripheral pulses, normal rate Abdomen: normal bowel sounds, soft, non tender Genitourinary: normal external genitalia Extremities: no cyanosis Skin: no lesions General Appearance: WD/WN HEENT: normocephalic Respiratory/Chest: chest wall non-tender, normal breath sounds Cardiovascular: normal peripheral pulses, normal rate Abdomen: normal bowel sounds, soft, non tender Genitourinary: normal external genitalia Extremities: no clubbing Skin: no rash Laboratory Tests 03/17/19 05:10: White Blood Count 7.0, Red Blood Count 4.08L, Hemoglobin 11.1L, Hematocrit 34.7L , Mean Corpuscular Volume 85, Mean Corpuscular Hemoglobin 27.3, Mean Corpuscular Hemoglobin Concent 32.0, Red Cell Distribution Width 14.6, Platelet Count 317, Mean Platelet Volume 7.0, Neutrophils (%) (Auto) 67.2, Lymphocytes (% ) (Auto) 15.6L, Monocytes (%) (Auto) 12.5H, Eosinophils (%) (Auto) 4.0H, Basophils (%) (Auto) 0.8, Sodium Level 143, Potassium Level 3.2L, Chloride Level 108H, Carbon Dioxide Level 28, Anion Gap 7, Blood Urea Nitrogen 14, Creatinine 1.1, Estimat Glomerular Filtration Rate , Glucose Level 92, Calcium Level 8.4L, Phosphorus Level 2.8, Magnesium Level 1.9, Total Bilirubin 0.5, Aspartate Amino Transf (AST/SGOT) 34, Alanine Aminotransferase (ALT/SGPT) 28, Alkaline Phosphatase 93, Total Protein 6.6, Albumin 2.1L, Globulin 4.5, Albumin/ Globulin Ratio 0.5L Current Medications Medications (Trade) Dose Ordered Sig/Brian Route PRN Reason Start Time Stop Time Status Last Admin Dose Admin Acetaminophen (Tylenol) 650 mg Q4H PRN ORAL fever 03/10/19 13:45 04/09/19 13:44 Amlodipine Besylate (Norvasc) 2.5 mg DAILY ORAL 03/11/19 09:00 04/10/19 08:59 03/17/19 08:39 Clonidine HCl (Catapres Tab) 0.1 mg Q6H PRN ORAL SBP >160 03/14/19 13:00 04/13/19 12:59 03/14/19 13:45 Dextrose (Dextrose 50%) 25 ml Q30M PRN IV Hypoglycemia 03/10/19 13:45 04/09/19 13:43 Dextrose (Dextrose 50%) 50 ml Q30M PRN IV hypoglycemia 03/10/19 13:45 04/09/19 13:44 Furosemide (Lasix) 40 mg TWICE A DAY ORAL 03/10/19 18:00 04/09/19 17:59 03/17/19 08:39 Levothyroxine Sodium (Synthroid) 75 mcg Q24H ORAL 03/11/19 06:30 04/10/19 06:29 03/17/19 06:53 Lorazepam (Ativan 2mg/ml 1ml) 0.5 mg Q4H PRN IV For Anxiety 03/10/19 13:45 03/17/19 13:44 Morphine Sulfate (Morphine Sulfate) 1 mg Q4H PRN IVP For Pain 03/10/19 13:45 03/17/19 13:44 Ondansetron HCl (Zofran) 4 mg Q6H PRN IVP Nausea & Vomiting 03/10/19 13:45 04/09/19 13:44 Polyethylene Glycol (Miralax) 17 gm HSPRN PRN ORAL Constipation 03/10/19 13:45 04/09/19 13:44 Potassium Chloride (K-Dur) 20 meq DAILY ORAL 03/16/19 09:00 04/15/19 08:59 03/17/19 08:29 Sodium Chloride 1,000 ml @ 100 mls/hr Q10H IV 03/10/19 10:30 04/09/19 10:29 03/17/19 08:40 Zolpidem Tartrate (Ambien) 5 mg HSPRN PRN ORAL Insomnia 03/10/19 13:45 03/17/19 13:44 Yolanda Lazcano MD Mar 17, 2019 10:36
--- NOTE | 2019-03-17 10:47 | NUR ---
DISCHARGE PLANNING: NOTE [facility] >>> WILL NOT ACCEPT THIS PT D/T DEVELOPMENTAL DELAY T: [phone] F [phone] [facility] >>> WILL NOT ACCEPT THIS PT D/T DEVELOPMENTAL DELAY T [phone] F [phone] [facility] >> TO SEE PATIENT TODAY F: [phone] [facility] >> TO SEE PATIENT TODAY T [phone] F [phone] [facility] IS REVIEWING CLINICALS FOR ACCEPTANCE
--- NOTE | 2019-03-17 12:44 | NUR ---
CASE MANAGEMENT: REVIEW 03/15/2019 SI:KNEE PAIN. UNSTEADY GAIT. UTI. T 97.2 HR 80 RR 19 B/P 152/70 MILAD 98% ON RA NO LABS TODAY IS: IVF @ 100 ml/HR LASIX PO BID NORVASC PO QD SYNTHROID PO Q24H K DUR PO QD MED/SURG DCP: PATIENT TO BE DISCHARGED TO HOME ONCE MEDICALLY CLEARED. 03/16/2019 SI:KNEE PAIN. UNSTEADY GAIT. UTI. T 98.2 HR 71 RR 19 B/P 137/68 SATS 98% ON RA NO LABS TODAY IS: IVF @ 100 ml/HR LASIX PO BID NORVASC PO QD SYNTHROID PO Q24H K DUR PO QD MED/SURG DCP: PATIENT TO BE DISCHARGED TO HOME ONCE MEDICALLY CLEARED. 03/17/2019 SI:KNEE PAIN. UNSTEADY GAIT. UTI. T 98.1 HR 86 RR 20 B/P 158/72 SATS 99% ON RA K 3.2 CL 108 CA 8.4 IS: IVF @ 100 ml/HR LASIX PO BID NORVASC PO QD SYNTHROID PO Q24H K DUR PO QD MED/SURG DCP: PATIENT TO BE DISCHARGED TO HOME ONCE MEDICALLY CLEARED. PLAN OF CARE: DC PLANNING
--- NOTE | 2019-03-17 12:48 | NUR ---
INSURANCE REVIEWS FAXED TO AUTH#[id number] FAX CLINICALS TO: [phone]
--- NOTE | 2019-03-17 13:21 | NUR ---
P.T Note: Pt is (+) for R femoral comminuted fx. P.T on hold pending Ortho clearance.
--- NOTE | 2019-03-17 13:52 | NUR ---
Social Service Note DESHAUN discussed with CM. Patient is a [facility] client. DESHAUN spoke with Ashley Palma [phone] patient's substance abuse services director. Patient doesn't have family to provide consent. The [facility] provides all medical consents. Mraiangel is the [facility] nurse [phone] (p) [phone] (f). Message left for Dr. Faria regarding Ortho consult. [facility] continues to request aggressive treatment. [facility] is also requesting for placement upon discharge to be at [facility]. Will continue to monitor.
--- NOTE | 2019-03-17 14:16 | NUR ---
RD ASSESSMENT & RECOMMENDATIONS SEE CARE ACTIVITY FOR COMPLETE ASSESSMENT DAILY ESTIMATED NEEDS: Needs based on Cardiac 73.6kg adj 25-30 kcals/kg 3541-0363 total kcals 1-1.2 g protein/kg 74-88 g total protein 25-30 mL/kg 3531-9260 total fluid mLs NUTRITION DIAGNOSIS: 1) Chewing difficulty r/t developmental delay as evidenced by pt on puree texture w/ NTL, w/ good acceptance. 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
--- NOTE | 2019-03-17 15:33 | NUR ---
DISCHARGE PLANNING: NOTE DC PLANNING PENDING ORTHO CLEARANCE PATIENT ACCEPTED TO [facility] [address] [facility] [address]. CM TO COORDINATE WITH [facility] [place] SSW REGARDING DC WHEN ORTHO CLEARANCE PROVIDED
--- NOTE | 2019-03-17 19:00 | NUR ---
NURSE NOTES: Received a report from EVON Diaz. Pt is in stable condition. Non-verbal. On room air. No pain/discomfort noted. IV site is patent and intact. He has a condom catheter, is draining. Bed in lowest position. Bed alarm is on. Call light within reach. Will continue to monitor.
--- NOTE | 2019-03-17 19:05 | NUR ---
HAND-OFF: Report given to Zara BARNARD. pt in stable condition. incoming nurse is aware that in case that pt needs a consent for any procedures they will need to call and faxed info to Erin Castaneda NP ([facility]) at [phone](P) [phone](F) along with consent form, X-ray repot and ortho note.
--- NOTE | 2019-03-17 19:20 | Internal Med Progress Note ---
Subjective Physician Name Librado Faria Attending Physician Chicho Ring MD Current Medications Medications (Trade) Dose Ordered Sig/Brian Route PRN Reason Start Time Stop Time Status Last Admin Dose Admin Acetaminophen (Tylenol) 650 mg Q4H PRN ORAL fever 03/10/19 13:45 04/09/19 13:44 Amlodipine Besylate (Norvasc) 2.5 mg DAILY ORAL 03/11/19 09:00 04/10/19 08:59 03/17/19 08:39 Clonidine HCl (Catapres Tab) 0.1 mg Q6H PRN ORAL SBP >160 03/14/19 13:00 04/13/19 12:59 03/14/19 13:45 Dextrose (Dextrose 50%) 25 ml Q30M PRN IV Hypoglycemia 03/10/19 13:45 04/09/19 13:43 Dextrose (Dextrose 50%) 50 ml Q30M PRN IV hypoglycemia 03/10/19 13:45 04/09/19 13:44 Furosemide (Lasix) 40 mg TWICE A DAY ORAL 03/10/19 18:00 04/09/19 17:59 03/17/19 17:15 Levothyroxine Sodium (Synthroid) 75 mcg Q24H ORAL 03/11/19 06:30 04/10/19 06:29 03/17/19 06:53 Ondansetron HCl (Zofran) 4 mg Q6H PRN IVP Nausea & Vomiting 03/10/19 13:45 04/09/19 13:44 Polyethylene Glycol (Miralax) 17 gm HSPRN PRN ORAL Constipation 03/10/19 13:45 04/09/19 13:44 Potassium Chloride (K-Dur) 20 meq DAILY ORAL 03/16/19 09:00 04/15/19 08:59 03/17/19 08:29 Sodium Chloride 1,000 ml @ 100 mls/hr Q10H IV 03/10/19 10:30 04/09/19 10:29 03/17/19 08:40 Allergies: Coded Allergies: No Known Allergies (Unverified , 06/15/12) Subjective awake, responsive, talking, Denies CP or SOB. No hip pain Objective Last Vital Signs Date Time Temp Pulse Resp B/P (MAP) Pulse Ox O2 Delivery O2 Flow Rate FiO2 03/17/19 16:00 99.1 90 20 141/66 (91) 97 03/17/19 09:00 Room Air Laboratory Tests Test 03/17/19 05:10 White Blood Count 7.0 K/UL (4.8-10.8) Red Blood Count 4.08 M/UL (4.70-6.10) L Hemoglobin 11.1 G/DL (14.2-18.0) L Hematocrit 34.7 % (42.0-52.0) L Mean Corpuscular Volume 85 FL (80-99) Mean Corpuscular Hemoglobin 27.3 PG (27.0-31.0) Mean Corpuscular Hemoglobin Concent 32.0 G/DL (32.0-36.0) Red Cell Distribution Width 14.6 % (11.6-14.8) Platelet Count 317 K/UL (150-450) Mean Platelet Volume 7.0 FL (6.5-10.1) Neutrophils (%) (Auto) 67.2 % (45.0-75.0) Lymphocytes (%) (Auto) 15.6 % (20.0-45.0) L Monocytes (%) (Auto) 12.5 % (1.0-10.0) H Eosinophils (%) (Auto) 4.0 % (0.0-3.0) H Basophils (%) (Auto) 0.8 % (0.0-2.0) Sodium Level 143 MMOL/L (136-145) Potassium Level 3.2 MMOL/L (3.5-5.1) L Chloride Level 108 MMOL/L (98-107) H Carbon Dioxide Level 28 MMOL/L (21-32) Anion Gap 7 mmol/L (5-15) Blood Urea Nitrogen 14 mg/dL (7-18) Creatinine 1.1 MG/DL (0.55-1.30) Estimat Glomerular Filtration Rate mL/min (>60) Glucose Level 92 MG/DL (74-106) Calcium Level 8.4 MG/DL (8.5-10.1) L Phosphorus Level 2.8 MG/DL (2.5-4.9) Magnesium Level 1.9 MG/DL (1.8-2.4) Total Bilirubin 0.5 MG/DL (0.2-1.0) Aspartate Amino Transf (AST/SGOT) 34 U/L (15-37) Alanine Aminotransferase (ALT/SGPT) 28 U/L (12-78) Alkaline Phosphatase 93 U/L (46-116) Total Protein 6.6 G/DL (6.4-8.2) Albumin 2.1 G/DL (3.4-5.0) L Globulin 4.5 g/dL Albumin/Globulin Ratio 0.5 (1.0-2.7) L Intake and Output 03/16/19 03/17/19 18:59 06:59 Intake Total 1350 ml 750 ml Output Total 450 ml 1140 ml Balance 900 ml -390 ml Intake Oral 350 ml IV Total 1000 ml 750 ml Output Urine Total 450 ml 1140 ml Objective General: No acute distress, awake and more responsive . HEENT: NCAT, sclera anicteric, PERRL, EOMI. Neck: Supple, no significant jugular venous distention, Lungs: fair inspiratory effort, Decrease air at base, no Wheeze or Rales. Heart: Regular rate and rhythm, normal S1/S2, no murmur. Abdomen: soft, nontender, nondistended. Normoactive bowel sounds. : Lindsay cath. Extremities: No Cyanosis , clubbing or edema. Neuro: A&O x 3, Able to move all extremities, weakness of lower extremities, Skin: warm, no rash. Assessment/Plan Assessment/Plan 1. Right knee pain. 2. Fall injury. 3. Congestive heart failure. 4. Hypertension. 5. Coronary artery disease. 6. Hypothyroidism. 7. History of cellulitis, right lower extremity. 8. Developmental delay. 9. Aphasia 10. Hypokalemia. 11. Right hip fracture, Plan: Discharge planning to SNF. monitor labs PT Mobility Kcl supplements Ortho consult. Librado Faria MD Mar 17, 2019 19:20
[2019-03-18 04:00] VITALS: BP 126/68
[2019-03-18 06:26] LABS: ANION GAP 6 mmol/L (5-15); BLOOD UREA NITROGEN 14 mg/dL (7-18); CALCIUM 8.3 MG/DL (8.5-10.1); CARBON DIOXIDE 27 MMOL/L (21-32); CHLORIDE 108 MMOL/L (98-107); POTASSIUM 3.7 MMOL/L (3.5-5.1); SODIUM 141 MMOL/L (136-145)
--- NOTE | 2019-03-18 07:18 | NUR ---
HAND-OFF: Report given to EVON Diaz.
[2019-03-18 08:00] VITALS: BP 145/80
--- NOTE | 2019-03-18 08:00 | NUR ---
NURSE NOTES: received report from Zara BARNARD, pt a/a/o laying in bed with no signs of distress or other issues at this time pt is none-verbal. pt was able to tolerate his diet with no signs of n/v. condom cath in place draining well. skin intact. Optifoam placed on heels and elbows as a preventive measures. right hip still with some bruising. awaiting for ortho consult. call light within reach, bed in lowest position. side rales up x2. I will f/u as needed.
[2019-03-18] MEDS: Furosemide 40mg tab ORAL SCH ×2 (08:59→17:21)
--- NOTE | 2019-03-18 10:42 | NUR ---
CASE MANAGEMENT: REVIEW 03/18/2019 SI:KNEE PAIN. UNSTEADY GAIT. UTI. T 98.3 HR 81 RR 18 B/P 126/68 SATS 98% ON RA CL 108 CA 8.3 IS: IVF @ 100 ml/HR LASIX PO BID NORVASC PO QD SYNTHROID PO Q24H MED/SURG DCP: PATIENT TO BE DISCHARGED TO HOME ONCE MEDICALLY CLEARED. PLAN OF CARE: XRAY RIGHT HIP (+) HIP FX>> ORTHO CONSULT PENDING
--- NOTE | 2019-03-18 10:43 | NUR ---
INSURANCE REVIEWS FAXED TO AUTH#[id number] FAX CLINICALS TO: [phone]
--- NOTE | 2019-03-18 11:44 | Pulmonology Progress Note ---
Assessment/Plan Problems: (1) Knee injury (2) COPD (chronic obstructive pulmonary disease) (3) Hypothyroidism (4) Developmental delay (5) HTN (hypertension) Assessment/Plan pt needs total care. Needs placement at a facility that can provide the care for all ADL all reviewed pain management titrate fio2 to sat of 92% monitor BP symptomatic treatment. dc planning in progress Subjective ROS Limited/Unobtainable: No Constitutional: Reports: no symptoms HEENT: Repors: no symptoms Respiratory: Reports: no symptoms Allergies: Coded Allergies: No Known Allergies (Unverified , 06/15/12) Objective Last 24 Hour Vital Signs Date Time Temp Pulse Resp B/P (MAP) Pulse Ox O2 Delivery O2 Flow Rate FiO2 03/18/19 09:00 82 145/80 03/18/19 04:00 98.3 81 18 126/68 (87) 98 03/17/19 23:56 98.2 94 17 123/66 (85) 96 03/17/19 21:00 Room Air 03/17/19 20:00 98.0 98 16 117/71 (86) 95 03/17/19 16:00 99.1 90 20 141/66 (91) 97 03/17/19 12:00 98.3 87 20 117/74 (88) 97 Intake and Output 03/17/19 03/18/19 19:00 07:00 Intake Total 450 ml 1340 ml Output Total 1100 ml 300 ml Balance -650 ml 1040 ml Intake Oral 350 ml 240 ml IV Total 100 ml 1100 ml Output Urine Total 1100 ml 300 ml # Voids 4 Objective General Appearance: WD/WN HEENT: normocephalic Respiratory/Chest: chest wall non-tender, normal breath sounds Cardiovascular: normal peripheral pulses, normal rate Abdomen: normal bowel sounds, soft, non tender Genitourinary: normal external genitalia Extremities: no cyanosis Skin: no lesions Laboratory Tests 03/18/19 05:20: Sodium Level 141, Potassium Level 3.7, Chloride Level 108H, Carbon Dioxide Level 27, Anion Gap 6, Blood Urea Nitrogen 14, Creatinine 1.0, Estimat Glomerular Filtration Rate , Glucose Level 88, Calcium Level 8.3L, Magnesium Level 2.0 Current Medications Medications (Trade) Dose Ordered Sig/Brian Route PRN Reason Start Time Stop Time Status Last Admin Dose Admin Acetaminophen (Tylenol) 650 mg Q4H PRN ORAL fever 03/10/19 13:45 04/09/19 13:44 Amlodipine Besylate (Norvasc) 2.5 mg DAILY ORAL 03/11/19 09:00 04/10/19 08:59 03/18/19 09:00 Clonidine HCl (Catapres Tab) 0.1 mg Q6H PRN ORAL SBP >160 03/14/19 13:00 04/13/19 12:59 03/14/19 13:45 Dextrose (Dextrose 50%) 25 ml Q30M PRN IV Hypoglycemia 03/10/19 13:45 04/09/19 13:43 Dextrose (Dextrose 50%) 50 ml Q30M PRN IV hypoglycemia 03/10/19 13:45 04/09/19 13:44 Furosemide (Lasix) 40 mg TWICE A DAY ORAL 03/10/19 18:00 04/09/19 17:59 03/18/19 08:59 Levothyroxine Sodium (Synthroid) 75 mcg Q24H ORAL 03/11/19 06:30 04/10/19 06:29 03/18/19 05:34 Ondansetron HCl (Zofran) 4 mg Q6H PRN IVP Nausea & Vomiting 03/10/19 13:45 04/09/19 13:44 Polyethylene Glycol (Miralax) 17 gm HSPRN PRN ORAL Constipation 03/10/19 13:45 04/09/19 13:44 Potassium Chloride (K-Dur) 20 meq DAILY ORAL 03/16/19 09:00 04/15/19 08:59 03/18/19 08:59 Sodium Chloride 1,000 ml @ 100 mls/hr Q10H IV 03/10/19 10:30 04/09/19 10:29 03/18/19 08:59 Yolanda Lazcano MD Mar 18, 2019 11:44
[2019-03-18 12:00] VITALS: BP 143/71
--- NOTE | 2019-03-18 13:20 | Consultation ---
Consult Note Consult Note Patient seen and evaluated. Right Hip basocervical displaced fracture. Will require Right hip hemiarthroplasty. K+ low yesterday, 3.7 today. Plan on Right hip hemiarthroplasty. 2D echo prior to surgery. Will proceed once optimized. Jose Raul Miller MD Mar 18, 2019 13:20
--- NOTE | 2019-03-18 13:30 | NUR ---
SWALLOW / SPEECH THERAPY NOTE: SUBJECTIVE: PATIENT ALERT BUT NOT SPEAKING. OBJECTIVE/ASSESSMENT: GOALS FOR INTAKE MET ON PUREED AND NECTAR THICK LIQUID DIET. GOALS FOR STAFF (EVON GRAY) ALSO MET FOR EDUCATED/TRAINED IN POSTED ASPIRATION PRECAUTIONS. DR ESCUDERO APPROVED MODIFIED BARIUM SWALLOW STUDY (MBSS) TO FURTHER ASSESS SWALLOW, R/O SILENT ASPIRATION RISK/ETIOLOGY, AND ATTEMPT TRIAL TX TECHNIQUES. WILL COMPLETE STUDY TODAY, SEE REPORT. PLAN: CONTINUE WITH PLAN OF CARE IN SWALLOW EVAL AND MBSS REPORTS. Addendum: 03/18/19 at 1334 by QUINTEN SANCHEZ HAIRSPRING ASSEMBLER PER LOGAN LAGUERRE, PATIENT SELF-FEEDING AND NO OVERT S/S OF ASPIRATION NOTED. LEFT MESSAGE WITH HIS CAREGIVER, ROHINI NOLAN, TO UPDATE HER ON HIS SWALLOWING STATUS. WILL D/C MODIFIED BARIUM SWALLOW STUDY SINCE EMERGENCY DETAIL DRIVER SAID PATIENT UNLIKELY TO STAY STILL FOR THE STUDY SINCE HE WOULD NOT STAY STILL FOR XRAYS. Addendum: 03/18/19 at 1414 by QUINTEN SANCHEZ HAIRSPRING ASSEMBLER SPOKE TO CG, ROHINI NOLAN, WHO SAID PATIENT WAS A GOOD EATER BEFORE AND THEY WOULD GIVE HIM SOFT FOODS AND CUT IT UP INTO SMALL PIECES. WILL TRY TO UPGRADE HIM TOMORROW AFTER A PO TRIAL OF SOFT FOODS VERSUS SLOW UPGRADE TO [facility] SOFT GROUND THEN FINELY CHOPPED THEN CHOPPED.
--- NOTE | 2019-03-18 13:47 | NUR ---
NURSE NOTES: Received consent orders for right hip arthroplasty. called and faxed info to Erin Castaneda MICA MACHINE OPERATOR at [phone](P) [phone](F) she stated that she will review info and she will sign consent LEONCIO. I will f/u as needed - RN called Cardiology to do 2Decho s/w David. he stated that he will do LEONCIO
--- NOTE | 2019-03-18 15:47 | CDS Physician Query ---
Clarification is required for compliance, coding accuracy, and to reflect severity of illness for this patient Dear Dr. Librado Faria Date: 03/18/2019 Shoe Turner/CDS Name: Rose Marie Benites Clinical Documentation States: 83 yo male admitted with right knee pain after ground level fall 03/18 progress note: Right hip fracture 03/10 XR: Findings: The bones are osteoporotic Please respond to the following question: Is there a diagnosis specific to these symptoms or values? If so please state below. PHYSICIAN RESPONSE: [] Osteoporotic fracture of right hip [x] Traumatic fracture of right hip [] Pathological fracture of right hip [] Other [] Unknown Present on Admission: [x] Yes [] No [] Clinically Undetermined Physician signature Date Please also document in your Progress Notes and/or Discharge Summary and indicate if the condition was present on admission. MINESH
[2019-03-18 16:00] VITALS: BP 141/65
--- NOTE | 2019-03-18 17:39 | Anethesia Preoperative Eval ---
Anesthesia Pre-op PMH/ROS General Date of Evaluation: Mar 18, 2019 Time of Evaluation: 17:33 Anesthesiologist: Dylon ASA Score: ASA 3 Mallampati Score Class I : Soft palate, uvula, fauces, pillars visible Class II: Soft palate, uvula, fauces visible Class III: Soft palate, base of uvula visible Class IV: Only hard plate visible Mallampati Classification: Class III Surgeon: Ed Diagnosis: R femoral neck Fx Surgical Procedure: R hip hemyarthroplasty Anesthesia History: none Family History: no anesthesia problems Allergies: Coded Allergies: No Known Allergies (Unverified , 06/15/12) Medications: see eMAR Patient NPO?: Yes Past Medical History Cardiovascular: Reports: HTN, CAD, other - CHF; Denies: TX, valve dz, arrhythmia Pulmonary: Reports: COPD; Denies: asthma, GERONIMO, other Gastrointestinal/Genitourinary: Reports: GERD; Denies: CRI, ESRD, other Neurologic/Psychiatric: Reports: dementia; Denies: CVA, depression/anxiety, TIA, other Endocrine: Reports: hypothyroidism; Denies: DM, steroids, other HEENT: Denies: cataract (L), cataract (R), glaucoma, RENO-SPARKS (L), RENO-SPARKS (R), other Hematology/Immune: Reports: anemia - mild; Denies: DVT, bleeding disorder, other Musculoskeletal/Integumentary: Reports: DJD; Denies: OA, RA, DDD, edema, other Other: obesity Anesthesia Pre-op Phys. Exam Physician Exam Last Vital Signs Date Time Temp Pulse Resp B/P (MAP) Pulse Ox O2 Delivery O2 Flow Rate FiO2 03/18/19 16:00 98.5 84 18 141/65 (90) 97 03/18/19 09:00 Room Air Constitutional: NAD Neurologic: other - unable to obtaine Cardiovascular: RRR, no M/R/G Respiratory: CTA Gastrointestinal: other - obesity Airway Exam Mallampati Score: Class III MO: limited Neck: short ROM: limited Teeth: missing Dentures: no upper, no lower Anesthesia Pre-op A/P Labs Chemistry Test 03/18/19 05:20 Sodium Level 141 MMOL/L (136-145) Potassium Level 3.7 MMOL/L (3.5-5.1) Chloride Level 108 MMOL/L (98-107) H Carbon Dioxide Level 27 MMOL/L (21-32) Anion Gap 6 mmol/L (5-15) Blood Urea Nitrogen 14 mg/dL (7-18) Creatinine 1.0 MG/DL (0.55-1.30) Estimat Glomerular Filtration Rate mL/min (>60) Glucose Level 88 MG/DL (74-106) Calcium Level 8.3 MG/DL (8.5-10.1) L Magnesium Level 2.0 MG/DL (1.8-2.4) Risk Assessment & Plan Assessment: ASA 3 Plan: JULIETH vs Julian Viramontes MD Mar 18, 2019 17:39
--- NOTE | 2019-03-18 19:32 | NUR ---
HAND-OFF: Report given to Chris RN, pt in stable condition. incoming nurse is aware that pt is schedule for right hip arthroplasty tomorrow 03/19/19 at 06:00.
[2019-03-18 20:00] VITALS: BP 137/71
--- NOTE | 2019-03-18 20:05 | NUR ---
NURSE NOTES: Pt is in bed, awake. Pt is non-verbal on room air. Vitals stable. PT appears calm, no signs of pain. Pt will be NPO after midnight for right hip surgery tomorrow. Consent has been signed and it's in the chart. Pt has no IV access now, an IV access will be established as soon as possible. Pt will be turned and cleaned as needed. Bed locked low in position,side rails up and call light within reach. Bed alarm on. Fall precaution in place. Pt will be monitored.
--- NOTE | 2019-03-18 21:15 | Consultation ---
DATE OF CONSULTATION: 03/18/2019 CONSULTING PHYSICIAN: Jose Raul Ward M.D. REQUESTING PHYSICIAN: Librado Faria M.D. REASON FOR CONSULTATION: Right-sided hip fracture. BRIEF HISTORY: The patient is a pleasant 83-year-old gentleman who presented to the [facility] on 03/10/2019 and was admitted with chief complaint of right knee pain. The patient does have mental developmental delay and is aphasic. He does not understand and is not a good historian. All of the history is obtained from the chart. According to the chart, the patient was found on the ground. The patient was complaining about knee pain. X-ray of the knee was negative. He also had evidence of UTI and was admitted. Subsequently while he was in the hospital, it was noted that the right leg was shortened, externally rotated and hip x-rays were obtained, which showed a basicervical displaced femoral neck fracture. Orthopedic consultation was obtained today for treatment of the right hip fracture. PAST MEDICAL HISTORY: Significant for history of recurrent cellulitis of right lower extremity, developmental delay, aphasia, congestive heart failure, hypertension, coronary artery disease, chronic obstructive pulmonary disease, and hypothyroidism. PAST SURGICAL HISTORY: None. MEDICATIONS: He takes amlodipine, aspirin, Lasix, Levoxyl, and potassium chloride. ALLERGIES: No known drug allergies. SOCIAL HISTORY: He lives in an assisted living facility for [facility] assisted living facility. There is no history of alcohol or tobacco use. REVIEW OF SYSTEMS: Noncontributory. PHYSICAL EXAMINATION: Examination of right hip reveals that he has got some bruising over the right hip over the buttock area. His right leg is shortened and externally rotated. Any motion of the right hip causes severe pain. X-RAYS: X-ray of the right hip and pelvis are reviewed. There is a displaced basicervical femoral neck fracture that goes down to the lesser trochanter, but it does not involve the lesser trochanter. The calcar appears to be intact. IMPRESSION: Right hip basicervical femoral neck fracture up to the lesser trochanter, but not involving the lesser trochanter. PLAN: At this time, I had discussion with the patient and explained to him my findings. Unfortunately, the patient cannot sign consent, however, he has a nurse practitioner as a guardian that will sign for him. We will go ahead and obtain a consent to proceed with right hip hemiarthroplasty. We will go ahead and consent for blood transfusion. He needs to get cleared from cardiac standpoint with history of CHF and coronary artery disease, and 2D echo has been ordered. We will discuss this with Dr. Faria. We will plan on expediting his care going forward. Jose Raul Ward M.D. DR: Fortino JOB#: [id number] CC:
--- NOTE | 2019-03-18 23:39 | Internal Med Progress Note ---
Subjective Physician Name Librado Faria Attending Physician Chicho Ring MD Current Medications Medications (Trade) Dose Ordered Sig/Brian Route PRN Reason Start Time Stop Time Status Last Admin Dose Admin Acetaminophen (Tylenol) 650 mg Q4H PRN ORAL fever 03/10/19 13:45 04/09/19 13:44 Amlodipine Besylate (Norvasc) 2.5 mg DAILY ORAL 03/11/19 09:00 04/10/19 08:59 03/18/19 09:00 Clonidine HCl (Catapres Tab) 0.1 mg Q6H PRN ORAL SBP >160 03/14/19 13:00 04/13/19 12:59 03/14/19 13:45 Dextrose (Dextrose 50%) 25 ml Q30M PRN IV Hypoglycemia 03/10/19 13:45 04/09/19 13:43 Dextrose (Dextrose 50%) 50 ml Q30M PRN IV hypoglycemia 03/10/19 13:45 04/09/19 13:44 Furosemide (Lasix) 40 mg TWICE A DAY ORAL 03/10/19 18:00 04/09/19 17:59 03/18/19 17:21 Levothyroxine Sodium (Synthroid) 75 mcg Q24H ORAL 03/11/19 06:30 04/10/19 06:29 03/18/19 05:34 Ondansetron HCl (Zofran) 4 mg Q6H PRN IVP Nausea & Vomiting 03/10/19 13:45 04/09/19 13:44 Polyethylene Glycol (Miralax) 17 gm HSPRN PRN ORAL Constipation 03/10/19 13:45 04/09/19 13:44 Potassium Chloride (K-Dur) 20 meq DAILY ORAL 03/16/19 09:00 04/15/19 08:59 03/18/19 08:59 Sodium Chloride 1,000 ml @ 100 mls/hr Q10H IV 03/10/19 10:30 04/09/19 10:29 03/18/19 08:59 Allergies: Coded Allergies: No Known Allergies (Unverified , 06/15/12) Subjective awake, responsive, Denies CP or SOB. No hip pain Objective Last Vital Signs Date Time Temp Pulse Resp B/P (MAP) Pulse Ox O2 Delivery O2 Flow Rate FiO2 03/18/19 20:00 97.9 102 17 137/71 (93) 97 03/18/19 09:00 Room Air Laboratory Tests Test 03/18/19 05:20 Sodium Level 141 MMOL/L (136-145) Potassium Level 3.7 MMOL/L (3.5-5.1) Chloride Level 108 MMOL/L (98-107) H Carbon Dioxide Level 27 MMOL/L (21-32) Anion Gap 6 mmol/L (5-15) Blood Urea Nitrogen 14 mg/dL (7-18) Creatinine 1.0 MG/DL (0.55-1.30) Estimat Glomerular Filtration Rate mL/min (>60) Glucose Level 88 MG/DL (74-106) Calcium Level 8.3 MG/DL (8.5-10.1) L Magnesium Level 2.0 MG/DL (1.8-2.4) Intake and Output 03/17/19 03/18/19 18:59 06:59 Intake Total 450 ml 1440 ml Output Total 1100 ml 300 ml Balance -650 ml 1140 ml Intake Oral 350 ml 240 ml IV Total 100 ml 1200 ml Output Urine Total 1100 ml 300 ml # Voids 4 Objective General: No acute distress, awake and more responsive . HEENT: NCAT, sclera anicteric, PERRL, EOMI. Neck: Supple, no significant jugular venous distention, Lungs: fair inspiratory effort, Decrease air at base, no Wheeze or Rales. Heart: Regular rate and rhythm, normal S1/S2, no murmur. Abdomen: soft, nontender, nondistended. Normoactive bowel sounds. : Lindsay cath. Extremities: No Cyanosis , clubbing or edema. Neuro: A&O x 3, Able to move all extremities, weakness of lower extremities, Skin: warm, no rash. Assessment/Plan Assessment/Plan 1. Right knee pain. 2. Fall injury. 3. Congestive heart failure. 4. Hypertension. 5. Coronary artery disease. 6. Hypothyroidism. 7. History of cellulitis, right lower extremity. 8. Developmental delay. 9. Aphasia 10. Hypokalemia. 11. Right hip fracture, Plan: NPO after midnight monitor labs PT Mobility Ortho consult note 2D Echo Librado Faria MD Mar 18, 2019 23:39
[2019-03-19] VITALS (18 sets, daily range): BP systolic 87–144; BP diastolic 46–78
--- NOTE | 2019-03-19 04:11 | NUR ---
NURSE NOTES: Pt is NPO now for surgery. New IV access on Right AC 20G. NS running at 100ml/hr.
[2019-03-19] MEDS ORDERED: cloNIDine 1000mcg/10ml inj ONE (06:10)
[2019-03-19] MEDS ORDERED: EPINEPHrine 1mg/1ml Amp ONE (06:10)
[2019-03-19] MEDS ORDERED: Bupivacaine 0.5% Inj 30 ml vial INJ ONE (06:11)
[2019-03-19] MEDS ORDERED: Bacitracin 50000 Units Vial ONE (06:16)
[2019-03-19] MEDS ORDERED: NeoSporin Gu Irrig 1ml Amp IRRIG ONE ×2 (06:16→07:10)
[2019-03-19] MEDS ORDERED: Propofol 200mg/20ml IV ONE (06:20)
[2019-03-19] MEDS ORDERED: Lidocaine 1% Plain 30 ml INJ ONE (06:20)
--- NOTE | 2019-03-19 06:20 | NUR ---
NURSE NOTES: Pt went to OR in hospital bed in stable condition with the transporter.
[2019-03-19] MEDS ORDERED: Sterile Water Irrig 1000ml IRRIG ONE (06:30)
--- NOTE | 2019-03-19 06:38 | Pre-Procedure Note/Attestation ---
Pre-Procedure Note/Attestation Complete Prior to Procedure Planned Procedure: right Procedure Narrative: rt hip hemiarthroplasty Indications for Procedure Pre-Operative Diagnosis: rt hip fracture Attestation I attest that I discussed the nature of the procedure; its benefits; risks and complications; and alternatives (and the risks and benefits of such alternatives ), prior to the procedure, with the patient (or the patient's legal technology sales representative). I attest that, if there was a reasonable possibility of needing a blood transfusion, the patient (or the patient's legal technology sales representative) was given the [facility] standardized written summary, pursuant to the David Rachel Blood Safety Act ([place] Health and Safety Code # 1645, as amended). I attest that I re-evaluated the patient just prior to the surgery and that there has been no change in the patient's H&P, except as documented below: none Jose Raul Ward MD Mar 19, 2019 06:38
[2019-03-19] MEDS ORDERED: Tranexamic Acid 1,000 MG in NS 65 ML IV SCH (07:00)
[2019-03-19 07:07] LABS: ANION GAP 7 mmol/L (5-15); BLOOD UREA NITROGEN 13 mg/dL (7-18); CALCIUM 8.6 MG/DL (8.5-10.1); CARBON DIOXIDE 27 MMOL/L (21-32); CHLORIDE 108 MMOL/L (98-107); POTASSIUM 3.5 MMOL/L (3.5-5.1); SODIUM 142 MMOL/L (136-145)
[2019-03-19] MEDS ORDERED: Bacitracin 50000 Units Vial IRRIG ONE (07:10)
[2019-03-19] MEDS ORDERED: NS Irrig 2000ml IRRIG ONE (07:10)
--- NOTE | 2019-03-19 07:10 | NUR ---
NURSE NOTES:received report fr. del cid rn.pt.off the unit for surgery.
--- NOTE | 2019-03-19 07:10 | NUR ---
HAND-OFF: Report given to EVON Eaton.
[2019-03-19] MEDS ORDERED: ePHEDrine 50mg/ml Inj ONE (07:11)
[2019-03-19] MEDS ORDERED: LR 1000ml 1,000 ML IVLG SCH (07:21)
--- NOTE | 2019-03-19 07:27 | Anethesia Preoperative Eval ---
Anesthesia Pre-op PMH/ROS General Date of Evaluation: Mar 19, 2019 Time of Evaluation: 06:26 Anesthesiologist: Loren ASA Score: ASA 4 Mallampati Score Class I : Soft palate, uvula, fauces, pillars visible Class II: Soft palate, uvula, fauces visible Class III: Soft palate, base of uvula visible Class IV: Only hard plate visible Mallampati Classification: Class III Surgeon: Ed Diagnosis: R Hip Fracture Surgical Procedure: R Hip Hemiarthroplasty Anesthesia History: none Family History: no anesthesia problems Allergies: Coded Allergies: No Known Allergies (Unverified , 06/15/12) Medications: see eMAR Patient NPO?: Yes NPO Date: Mar 19, 2019 NPO Time: 0000 Past Medical History Cardiovascular: Reports: HTN, CAD, other - CHF Pulmonary: Reports: COPD Gastrointestinal/Genitourinary: Reports: GERD Neurologic/Psychiatric: Reports: dementia Endocrine: Reports: hypothyroidism Hematology/Immune: Reports: anemia Anesthesia Pre-op Phys. Exam Physician Exam Last Vital Signs Date Time Temp Pulse Resp B/P (MAP) Pulse Ox O2 Delivery O2 Flow Rate FiO2 03/19/19 04:00 98.2 84 18 128/71 (90) 96 03/18/19 21:00 Room Air Constitutional: NAD Neurologic: CN 2-12 intact Cardiovascular: RRR Respiratory: CTA Gastrointestinal: S/NT/ND Airway Exam Mallampati Score: Class III MO: limited ROM: limited Teeth: missing, intact, broken Anesthesia Pre-op A/P Labs Chemistry Test 03/19/19 06:00 Sodium Level 142 MMOL/L (136-145) Potassium Level 3.5 MMOL/L (3.5-5.1) Chloride Level 108 MMOL/L (98-107) H Carbon Dioxide Level 27 MMOL/L (21-32) Anion Gap 7 mmol/L (5-15) Blood Urea Nitrogen 13 mg/dL (7-18) Creatinine 1.0 MG/DL (0.55-1.30) Estimat Glomerular Filtration Rate mL/min (>60) Glucose Level 87 MG/DL (74-106) Calcium Level 8.6 MG/DL (8.5-10.1) Magnesium Level 1.9 MG/DL (1.8-2.4) Risk Assessment & Plan Assessment: ASA 4 Plan: GA, Spinal, SED Status Change Before Surgery: No Pre-Antibiotics Dru Grams Ancef IV Given Within 1 Hr of Incision: Yes Time Given: 06:41 Miguelangel Pimentel MD Mar 19, 2019 07:27
[2019-03-19] MEDS ORDERED: Meperidine 50mg/ml Inj(FOR RIGORS ONLY) IVP PRN (07:30)
[2019-03-19] MEDS ORDERED: oxyCODONE HCL/Acetaminophen 5/325mg ORAL PRN (07:30)
[2019-03-19] MEDS ORDERED: HYDROcodone/Acetamin 7.5/325 tab ORAL PRN (07:30)
[2019-03-19] MEDS ORDERED: DiphenhydrAMINE 50mg/ml Inj IVP PRN (07:30)
[2019-03-19] MEDS ORDERED: Atropine Sulfate 0.4mg/ml inj IVP PRN (07:30)
[2019-03-19] MEDS ORDERED: LORazepam Inj 2mg/ml 1ml IV PRN (07:30)
[2019-03-19] MEDS ORDERED: Hydromorphone 0.5mg/0.5ml inj IVP PRN (07:30)
[2019-03-19] MEDS ORDERED: Metoclopramide 10mg/2ml Inj IVP PRN (07:30)
[2019-03-19] MEDS ORDERED: Midazolam 2mg/2ml Inj IVP PRN (07:30)
[2019-03-19] MEDS ORDERED: fentaNYL 100 mcg/2 mL IV PRN (07:30)
[2019-03-19] MEDS ORDERED: HYDROcodone/Acetamin 5/325 tab ORAL PRN (07:30)
--- NOTE | 2019-03-19 07:30 | Immediate Post-Op Evaluation ---
Immediate Post-Op Evalulation Immediate Post-Op Evalulation Procedure: R Hip Hemiarthroplasty Date of Evaluation: Mar 19, 2019 Time of Evaluation: 08:48 IV Fluids: 1000 NS Blood Products: 0 Estimated Blood Loss: 45 Urinary Output: 0 Blood Pressure Systolic: 100 Blood Pressure Diastolic: 52 Pulse Rate: 86 Respiratory Rate: 16 O2 Sat by Pulse Oximetry: 100 Temperature (Fahrenheit): 97.3 Pain Score (1-10): 2 Nausea: No Vomiting: No Complications 0 Patient Status: awake, reacts, patent, none Hydration Status: adequate Dru Grams Ancef IV Given Within 1 Hr of Incision: Yes Time Given: 06:41 Miguelangel Pimentel MD Mar 19, 2019 07:30
--- NOTE | 2019-03-19 08:26 | Brief Operative Note ---
Immediate Post Operative Note Operative Note Chief Complaint: rt hip pain Pre-op Diagnosis: rt hip fracture Procedure: rt hip hemiarthroplasty Post-op Diagnosis: same as pre-op Findings: consistent w/pre-op dx studies Surgeon: md janice Bioinformatician: sandra britton Anesthesiologist: md kesha Anesthesia: general Specimen: yes Complications: none Condition: stable Fluids: ns Estimated Blood Loss: minimal Drains: none Implant(s) used?: Yes - Mraiam Soliman Mar 19, 2019 08:26
[2019-03-19] MEDS: Docusate 100mg cap ORAL SCH ×3 (09:00→17:06)
[2019-03-19] MEDS: Aspirin Baby 81mg ORAL SCH ×2 (09:00→17:06)
[2019-03-19] MEDS: Furosemide 40mg tab ORAL SCH ×2 (09:00→17:06)
--- NOTE | 2019-03-19 09:15 | Operative Note - Dictated ---
DATE OF OPERATION: 03/19/2019 PREOPERATIVE DIAGNOSIS: Right hip comminuted basicervical femoral neck fracture with involvement of the greater trochanter with severe comminution of the greater trochanter. POSTOPERATIVE DIAGNOSIS: Right hip comminuted basicervical femoral neck fracture with involvement of the greater trochanter with severe comminution of the greater trochanter. PROCEDURE: Right hip hemiarthroplasty using [place] system, size 5 high offset stem, 28 millimeter +4 millimeter femoral head, and 46 mm bipolar component with partial resection of the greater trochanter. SURGEON: Jose Raul Ward M.D. QUALITY COMPLIANCE MANAGER: Whitney Alfonso ANESTHESIOLOGIST: Miguelangel Pimentel M.D. ANESTHESIA: Spinal anesthesia. ESTIMATED BLOOD LOSS: Less than 130 mL. COMPLICATIONS: None. BRIEF HISTORY: The patient is a pleasant 83-year-old, developmentally delayed gentleman who lives in an assisted living facility. He was admitted approximately 9 to 10 days ago after he was found on the ground. No fall was witnessed. He was complaining about right knee pain and x-rays of the knee were negative. However, he continued to have pain and bruising in the right hip and x-rays of the hip revealed a femoral neck fracture. This was identified on 03/18/2019 and after surgical clearance, we proceeded with surgery today. The patient is unable to provide his own consent and consent was obtained through his [id number] and conservator. Risks, benefits, complications was fully discussed with them and risk of infection, bleeding, neurovascular complication, possibility of nonunion, possibility of dislocation, possibility of DVT and PEs, and other complications that may arise were discussed with them and everyone involved was aware. OPERATIVE PROCEDURE: The patient was brought to the operating room table and was placed supine. All pressure points were well padded. Spinal anesthesia was induced and the patient was placed in left lateral decubitus position with the right hip up. The patient was stabilized using pegboard. All pressure points well padded. The right hip was then prepped and draped in usual sterile fashion and standard posterior lateral incision of the hip was performed after a time-out was performed, preoperative antibiotics and tranexamic acid was given. The incision was taken through subcutaneous tissue and the tensor fascia was opened. The tensor fascia was opened proximally and distally and the Charnley retractors were placed in. At this point, there was extensive scar tissue and inflamed bursal tissue. These were resected. The greater trochanter appeared to be in multiple pieces and was very unstable. A soft tissue envelope could not be developed without completely loosening the portion of the greater trochanter and therefore, a portion of the greater trochanter was resected to allow rotation of the hip and to release the short external rotators. Once this was completed, the capsule of the hip joint was T'd. The femoral head was removed. The acetabulum was inspected. The acetabulum appeared to be intact with no loose fragments. The head measured 46 mm. The fracture was right at the base just above the lesser trochanter. Therefore, a separate femoral neck cut was not necessary. At this point, the Teague retractors were placed in, the hip was internally rotated, and using a box feeder, entry point to the femur was lateralized. Subsequently, a canal finder was applied and sequential broaching was performed from 0 to size 5, broach which provided excellent axial and rotational stability. It should be noted that due to the fact that the fracture was so low, this was broached to about 1 cm proximal to the lesser trochanter. At this point, a high offset neck and 0 head and a 46 millimeters bipolar were applied and were reduced. There appears to be slight shortening of the leg and soft tissue envelope was not very stable. Subsequently, the head was changed to a +4 head with a 46 mm bipolar and the entire construct was reduced. This provided excellent stability and length. The leg lengths were equal. The range of motion was excellent. The stability was checked at 0, 30 degrees, 45 degrees, and 90 degrees of flexion all the way up to 75 degrees internal rotation with excellent stability. At this point, all wounds were thoroughly irrigated and trial components were removed. Size 5 Accolade stem with high offset neck and 28 millimeter femoral head with +4 millimeter length and a 46 mm bipolar components were assembled and the stem was malleted into the femur. This provided excellent axial and rotational stability. The Dolan taper was dried and the bipolar and the head were placed in without any complications. This provided excellent stability of the construct. The entire construct was reduced and range of motion, length, and stability was checked again and appeared to be perfect as described previously. At this point, wounds were thoroughly irrigated using copious amount of fluid. The abductor mechanism was then repaired to soft tissue envelope around it. The capsule was repaired back onto the bone. These were done using #2 FiberWire sutures. The tensor fascia was closed using #1 Vicryl suture. Subcutaneous tissue was closed using 2-0 Vicryl suture. The skin was closed using 3-0 Monocryl suture. Dermabond was applied and the patient tolerated the procedure well without any complication, was taken to recovery room in stable condition. All lap counts and instrument counts were correct. Jose Raul Damaris Ward DR: SAURABH JOB#: [id number] CC:
--- NOTE | 2019-03-19 09:55 | NUR ---
NURSE NOTES:Received patient fr. surgery by bed s/p right hip hemiarthroplasty under spinal anesthesia,no movement yet on ble.,awake able to talk,iv site patent,on 2liters n/c,right hip dressing c/d/i.abduction pillow on.scd on left leg.will continue plan of care.
--- NOTE | 2019-03-19 10:20 | Diagnostic Imaging Report ---
Indication: Postoperative Technique: One view of the pelvis Comparison: 03/17/2019 Findings: Interim repair of previously noted right hip fracture with right hemiarthroplasty. Good anatomic alignment of the prosthesis. Retained air from the surgical exposure is seen in the soft tissues. Impression: Postoperative right hip. No unusual features
[2019-03-19] MEDS: D5 1/2NS w/KCl 20mEq 1,000 ML IV SCH ×2 (10:37→20:20)
--- NOTE | 2019-03-19 10:51 | NUR ---
NURSE NOTES:pt.able to move bilateral lower extremities,sensation intact.tolerated ice chips and juice,able to response verbally.
[2019-03-19] MEDS: HYDROmorphone 1mg/ml Carpuject SUBQ PRN (12:18)
--- NOTE | 2019-03-19 12:23 | Pulmonology Progress Note ---
Assessment/Plan Problems: (1) Hip fracture (2) Knee injury (3) COPD (chronic obstructive pulmonary disease) (4) Hypothyroidism (5) Developmental delay (6) HTN (hypertension) Assessment/Plan tolerated the surgery very well all reviewed pain management titrate fio2 to sat of 92% monitor BP symptomatic treatment. dc planning in progress Subjective ROS Limited/Unobtainable: No Constitutional: Reports: no symptoms HEENT: Repors: no symptoms Respiratory: Reports: no symptoms Allergies: Coded Allergies: No Known Allergies (Unverified , 06/15/12) Objective Last 24 Hour Vital Signs Date Time Temp Pulse Resp B/P (MAP) Pulse Ox O2 Delivery O2 Flow Rate FiO2 03/19/19 09:55 Nasal Cannula 2.0 03/19/19 09:47 97.4 85 23 98/54 97 Nasal Cannula 3 03/19/19 09:40 83 24 97/53 98 Nasal Cannula 3 03/19/19 09:30 81 25 98/51 98 Nasal Cannula 3 03/19/19 09:20 81 26 92/48 98 Nasal Cannula 3 03/19/19 09:10 83 27 91/47 98 Nasal Cannula 3 03/19/19 09:00 83 24 92/48 98 Nasal Cannula 3 03/19/19 08:55 84 20 93/48 100 Nasal Cannula 3 03/19/19 08:45 87 17 87/46 100 Simple Mask 6 03/19/19 08:40 85 18 99/49 100 Simple Mask 6 03/19/19 08:37 97.3 88 15 100/52 100 Simple Mask 6 03/19/19 08:35 86 16 100 03/19/19 04:00 98.2 84 18 128/71 (90) 96 03/19/19 00:00 98.1 90 18 134/70 (91) 96 03/18/19 21:00 Room Air 03/18/19 20:00 97.9 102 17 137/71 (93) 97 03/18/19 16:00 98.5 84 18 141/65 (90) 97 Intake and Output 03/18/19 03/19/19 19:00 07:00 Intake Total 360 ml 300 ml Balance 360 ml 300 ml Intake Oral 360 ml IV Total 300 ml # Voids 4 5 # Bowel Movements 1 1 Objective General Appearance: WD/WN HEENT: normocephalic Respiratory/Chest: chest wall non-tender, normal breath sounds Cardiovascular: normal peripheral pulses, normal rate Abdomen: normal bowel sounds, soft, non tender Genitourinary: normal external genitalia Extremities: no cyanosis Skin: no lesions Laboratory Tests 03/19/19 06:00: Sodium Level 142, Potassium Level 3.5, Chloride Level 108H, Carbon Dioxide Level 27, Anion Gap 7, Blood Urea Nitrogen 13, Creatinine 1.0, Estimat Glomerular Filtration Rate , Glucose Level 87, Calcium Level 8.6, Magnesium Level 1.9 Current Medications Medications (Trade) Dose Ordered Sig/Brian Route PRN Reason Start Time Stop Time Status Last Admin Dose Admin Acetaminophen (Tylenol) 650 mg Q4H PRN ORAL Mild Pain (Pain Scale 1-3) 03/19/19 06:45 04/18/19 06:44 Acetaminophen (Tylenol) 650 mg Q4H PRN ORAL temp>100 03/19/19 06:45 04/18/19 06:44 Amlodipine Besylate (Norvasc) 2.5 mg DAILY ORAL 03/11/19 09:00 04/10/19 08:59 03/18/19 09:00 Aspirin (ASA) 81 mg BID ORAL 03/19/19 09:00 04/18/19 08:59 Bisacodyl (Dulcolax) 10 mg Q12H PRN RECTAL Constipation 03/19/19 06:45 04/18/19 06:44 Cefazolin Sodium 2 gm/Dextrose 110 ml @ 220 mls/hr Q8H IV 03/19/19 14:30 03/19/19 22:59 Clonidine HCl (Catapres Tab) 0.1 mg Q6H PRN ORAL SBP >160 03/14/19 13:00 04/13/19 12:59 03/14/19 13:45 Dextrose (Dextrose 50%) 25 ml Q30M PRN IV Hypoglycemia 03/10/19 13:45 04/09/19 13:43 Dextrose (Dextrose 50%) 50 ml Q30M PRN IV hypoglycemia 03/10/19 13:45 04/09/19 13:44 Dextrose/ Electrolytes 1,000 ml @ 75 mls/hr [id number] IV 03/19/19 07:00 04/18/19 06:59 03/19/19 10:37 Docusate Sodium (Colace) 100 mg THREE TIMES A DAY ORAL 03/19/19 09:00 04/18/19 08:59 03/19/19 12:13 Ferrous Sulfate (Feosol) 325 mg TID@0630,1130,1630 ORAL 03/19/19 11:30 04/18/19 11:29 03/19/19 12:13 Furosemide (Lasix) 40 mg TWICE A DAY ORAL 03/10/19 18:00 04/09/19 17:59 03/18/19 17:21 Hydromorphone HCl (Dilaudid) 1 mg Q4H PRN SUBQ Mild Pain (Pain Scale 1-3) 03/19/19 06:45 03/26/19 06:44 03/19/19 12:18 Levothyroxine Sodium (Synthroid) 75 mcg Q24H ORAL 03/11/19 06:30 04/10/19 06:29 03/18/19 05:34 Ondansetron HCl (Zofran) 4 mg Q6H PRN IVP Nausea & Vomiting 03/10/19 13:45 04/09/19 13:44 Pantoprazole (Protonix) 40 mg DAILY ORAL 03/19/19 09:00 04/18/19 08:59 Polyethylene Glycol (Miralax) 17 gm HSPRN PRN ORAL Constipation 03/10/19 13:45 04/09/19 13:44 Potassium Chloride (K-Dur) 20 meq DAILY ORAL 03/16/19 09:00 04/15/19 08:59 03/18/19 08:59 Yolanda Lazcano MD Mar 19, 2019 12:23
--- NOTE | 2019-03-19 12:47 | NUR ---
WEEKLY SWALLOW AND SPEECH THERAPY SUMMARY: PATIENT SEEN FOR DYSPHAGIA, SEE SWALLOW EVALUATION. NOT ALERT NOW SINCE JUST CAME BACK FROM SURGERY AND HAD PAIN MEDS. GOALS FOR INTAKE MET ON PUREED AND NECTAR THICK LIQUID DIET. GOALS FOR NEW STAFF (EVON FIGUEROA) ALSO MET FOR EDUCATED/TRAINED IN POSTED ASPIRATION PRECAUTIONS. PLAN: COMPLETE MODIFIED BARIUM SWALLOW STUDY IP OR OP IF DC (DO NOT HOLD UP DC FOR THIS STUDY) CONTINUE WITH CURRENT DIET/LIQUIDS WITH POSTED ASP PRECAUTIONS CONTINUE WITH PLAN OF CARE IN SWALLOW EVALUATION REPORT
--- NOTE | 2019-03-19 14:10 | NUR ---
PT Note Attempted to see patient for eval/tx, s/p right hip hemiarthroplasty this AM due to comminuted FX of the right hip. Patient was found in supine with right hip and knee in flexion and external rotation. No leg length discrepancy noted. RN was made aware and will notify MD. Will hold off on PT today till right hip position/placement has been verified.
--- NOTE | 2019-03-19 14:24 | NUR ---
NURSE NOTES:DR. RAMSEY NOTIFIED RE:RIGHT KNEE APPEARS EXTERNALLY ROTATED,RIGHT LEG THE SAME LENGTH WITH LEFT LEG.ABDUCTION PILLOW AT ALL TIMES.SEEN BY PT.MADE AWARE RE:PT NEEDS TO BE SEEN TODAY.
--- NOTE | 2019-03-19 14:33 | NUR ---
INSURANCE REVIEWS FAXED TO AUTH#[id number] FAX CLINICALS TO: [phone]
[2019-03-19] MEDS: ceFAZolin sod 2 GM in D5W 110 ML IV SCH ×2 (15:01→22:15)
--- NOTE | 2019-03-19 17:34 | NUR ---
CASE MANAGEMENT: REVIEW SI:KNEE PAIN. UNSTEADY GAIT. UTI. T 97.4 HR 85 RR 23 B/P 98/54 SATS 97% ON 3L/NC CL 108 IS: IVF @ 75 ml/HR LASIX PO BID NORVASC PO QD SYNTHROID PO Q24H ASA PO BID K DUR PO QD PROTONIX PO QD CEFAZOLIN IV Q8H MED/SURG DCP: PATIENT TO BE DISCHARGED TO HOME ONCE MEDICALLY CLEARED. PLAN OF CARE: DATE OF OPERATION: 03/19/2019 PREOPERATIVE DIAGNOSIS: Right hip comminuted basicervical femoral neck fracture with involvement of the greater trochanter with severe comminution of the greater trochanter. POSTOPERATIVE DIAGNOSIS: Right hip comminuted basicervical femoral neck fracture with involvement of the greater trochanter with severe comminution of the greater trochanter. PROCEDURE: Right hip hemiarthroplasty using Bill system, size 5 high offset stem, 28 millimeter +4 millimeter femoral head, and 46 mm bipolar component with partial resection of the greater trochanter.
--- NOTE | 2019-03-19 17:58 | Internal Med Progress Note ---
Subjective Physician Name Librado Faria Attending Physician Chicho Ring MD Current Medications Medications (Trade) Dose Ordered Sig/Brian Route PRN Reason Start Time Stop Time Status Last Admin Dose Admin Acetaminophen (Tylenol) 650 mg Q4H PRN ORAL Mild Pain (Pain Scale 1-3) 03/19/19 06:45 04/18/19 06:44 Acetaminophen (Tylenol) 650 mg Q4H PRN ORAL temp>100 03/19/19 06:45 04/18/19 06:44 Amlodipine Besylate (Norvasc) 2.5 mg DAILY ORAL 03/11/19 09:00 04/10/19 08:59 03/18/19 09:00 Aspirin (ASA) 81 mg BID ORAL 03/19/19 09:00 04/18/19 08:59 03/19/19 17:06 Bisacodyl (Dulcolax) 10 mg Q12H PRN RECTAL Constipation 03/19/19 06:45 04/18/19 06:44 Cefazolin Sodium 2 gm/Dextrose 110 ml @ 220 mls/hr Q8H IV 03/19/19 14:30 03/19/19 22:59 03/19/19 15:01 Clonidine HCl (Catapres Tab) 0.1 mg Q6H PRN ORAL SBP >160 03/14/19 13:00 04/13/19 12:59 03/14/19 13:45 Dextrose (Dextrose 50%) 25 ml Q30M PRN IV Hypoglycemia 03/10/19 13:45 04/09/19 13:43 Dextrose (Dextrose 50%) 50 ml Q30M PRN IV hypoglycemia 03/10/19 13:45 04/09/19 13:44 Dextrose/ Electrolytes 1,000 ml @ 75 mls/hr [id number] IV 03/19/19 07:00 04/18/19 06:59 03/19/19 10:37 Docusate Sodium (Colace) 100 mg THREE TIMES A DAY ORAL 03/19/19 09:00 04/18/19 08:59 03/19/19 17:06 Ferrous Sulfate (Feosol) 325 mg TID@0630,1130,1630 ORAL 03/19/19 11:30 04/18/19 11:29 03/19/19 17:06 Furosemide (Lasix) 40 mg TWICE A DAY ORAL 03/10/19 18:00 04/09/19 17:59 03/19/19 17:06 Hydromorphone HCl (Dilaudid) 1 mg Q4H PRN SUBQ Mild Pain (Pain Scale 1-3) 03/19/19 06:45 03/26/19 06:44 03/19/19 12:18 Levothyroxine Sodium (Synthroid) 75 mcg Q24H ORAL 03/11/19 06:30 04/10/19 06:29 03/18/19 05:34 Ondansetron HCl (Zofran) 4 mg Q6H PRN IVP Nausea & Vomiting 03/10/19 13:45 04/09/19 13:44 Pantoprazole (Protonix) 40 mg DAILY ORAL 03/19/19 09:00 04/18/19 08:59 Polyethylene Glycol (Miralax) 17 gm HSPRN PRN ORAL Constipation 03/10/19 13:45 04/09/19 13:44 Potassium Chloride (K-Dur) 20 meq DAILY ORAL 03/16/19 09:00 04/15/19 08:59 03/18/19 08:59 Allergies: Coded Allergies: No Known Allergies (Unverified , 06/15/12) Subjective awake, responsive, demented, denies CP or SOB. C/O right hip pain Objective Last Vital Signs Date Time Temp Pulse Resp B/P (MAP) Pulse Ox O2 Delivery O2 Flow Rate FiO2 03/19/19 12:30 98.0 90 20 144/78 (100) 96 03/19/19 09:55 Nasal Cannula 2.0 Laboratory Tests Test 03/19/19 06:00 Sodium Level 142 MMOL/L (136-145) Potassium Level 3.5 MMOL/L (3.5-5.1) Chloride Level 108 MMOL/L (98-107) H Carbon Dioxide Level 27 MMOL/L (21-32) Anion Gap 7 mmol/L (5-15) Blood Urea Nitrogen 13 mg/dL (7-18) Creatinine 1.0 MG/DL (0.55-1.30) Estimat Glomerular Filtration Rate mL/min (>60) Glucose Level 87 MG/DL (74-106) Calcium Level 8.6 MG/DL (8.5-10.1) Magnesium Level 1.9 MG/DL (1.8-2.4) Intake and Output 03/18/19 03/19/19 19:00 07:00 Intake Total 360 ml 300 ml Balance 360 ml 300 ml Intake Oral 360 ml IV Total 300 ml # Voids 4 5 # Bowel Movements 1 1 Objective General: No acute distress, awake and more responsive . HEENT: NCAT, sclera anicteric, PERRL, EOMI. Neck: Supple, no significant jugular venous distention, Lungs: fair inspiratory effort, Decrease air at base, no Wheeze or Rales. Heart: Regular rate and rhythm, normal S1/S2, no murmur. Abdomen: soft, nontender, nondistended. Normoactive bowel sounds. Pelvic: Right hip surgical incision intact. : Lindsay cath. Extremities: No Cyanosis , clubbing or edema. Neuro: A&O x 3, Able to move all extremities, weakness of lower extremities, Skin: warm, no rash. Assessment/Plan Assessment/Plan 1. Right hip comminuted basicervical femoral neck fracture with involvement of the greater trochanter with severe comminution of the greater trochanter s/p Right hip hemiarthroplasty (03/19/2019). 2. Fall injury with Right hip fracture. 3. Congestive heart failure. 4. Hypertension. 5. Coronary artery disease. 6. Hypothyroidism. 7. History of cellulitis, right lower extremity. 8. Developmental delay. 9. Aphasia 10. Hypokalemia. Plan: Consider DC planning to SNF. monitor labs PT Mobility F/u with Ortho recommendations. Librado Faria MD Mar 19, 2019 17:58
--- NOTE | 2019-03-19 19:39 | NUR ---
HAND-OFF: Report given to DEVIN ESTEBANPTEMBER.
--- NOTE | 2019-03-19 20:30 | NUR ---
NURSE NOTES: RECIEVED PT. IN SUPINE POSITION W/ NO S/S OF DISTRESS NOTED.V/S TAKEN AND RECORDED.UNABLE TO VERBALIZES NEEDS.NEEDS ANTICIPATED.ABDUCTION PILLOW INPLACED.WILL CONTINUE TO MONITOR.
[2019-03-20] VITALS: BP 112/60
[2019-03-20 04:00] VITALS: BP 129/68
[2019-03-20] MEDS: D5 1/2NS w/KCl 20mEq 1,000 ML IV SCH (04:55)
[2019-03-20 06:33] LABS: BASOPHILS % (AUTO) 0.3 % (0.0-2.0); EOSINOPHILS % (AUTO) 0.7 % (0.0-3.0); HEMATOCRIT 32.7 % (42.0-52.0); HEMOGLOBIN 10.5 G/DL (14.2-18.0); LYMPHOCYTES % (AUTO) 10.9 % (20.0-45.0); MEAN CORPUSCULAR VOLUME 84 FL (80-99); MONOCYTES % (AUTO) 16.5 % (1.0-10.0); NEUTROPHILS % (AUTO) 71.5 % (45.0-75.0); PLATELET COUNT 272 K/UL (150-450); RED BLOOD COUNT 3.87 M/UL (4.70-6.10); RED CELL DISTRIBUTION WIDTH 14.9 % (11.6-14.8); WHITE BLOOD COUNT 8.7 K/UL (4.8-10.8)
[2019-03-20 06:48] LABS: ALANINE AMINOTRANSFERASE 22 U/L (12-78); ALBUMIN/GLOBULIN RATIO 0.5 (1.0-2.7); ALKALINE PHOSPHATASE 109 U/L (46-116); ANION GAP 3 mmol/L (5-15); ASPARTATE AMINO TRANSFERASE 40 U/L (15-37); BILIRUBIN,TOTAL 0.6 MG/DL (0.2-1.0); BLOOD UREA NITROGEN 9 mg/dL (7-18); CALCIUM 8.1 MG/DL (8.5-10.1); CARBON DIOXIDE 27 MMOL/L (21-32); CHLORIDE 105 MMOL/L (98-107); PHOSPHORUS 2.6 MG/DL (2.5-4.9); POTASSIUM 3.2 MMOL/L (3.5-5.1); SODIUM 135 MMOL/L (136-145)
--- NOTE | 2019-03-20 07:00 | NUR ---
HAND-OFF: Report given to HENRY BARNARD.
--- NOTE | 2019-03-20 07:15 | NUR ---
NURSE NOTES:Bedside rounds with night rn(yovana),pt.awake,responding verbally,room air,iv site patent,surgical dressing left hip c/d/i.right leg in good alignment,no leg shortening,abduction pillow in between legs,sensation intact,no c/o pain.will cont to monitor.
[2019-03-20 08:00] VITALS: BP 143/74
--- NOTE | 2019-03-20 08:13 | NUR ---
NURSE NOTES:pt was seen at bedside with darnell(pa of dr. camacho),see pa's report notes.
--- NOTE | 2019-03-20 08:13 | Orthopedic Progress Note ---
Orthopedic - Progress Note Subjective Symptoms: other - no complaints. awake, non verbal but in no distress. pt seen with Nurse jordana Eaton yesterday for rt leg external rotation. abd pillow has been in place at all times. xray did not show any alingment issues. seen by PT Objective Last 24 Hour Vital Signs Date Time Temp Pulse Resp B/P (MAP) Pulse Ox O2 Delivery O2 Flow Rate FiO2 03/20/19 07:15 Room Air 03/20/19 04:00 97.8 97 20 129/68 (88) 96 03/20/19 00:00 98.1 86 20 112/60 (77) 96 03/19/19 21:00 Room Air 03/19/19 20:00 98.5 100 20 131/66 (87) 96 03/19/19 16:00 98.2 93 18 133/66 (88) 98 03/19/19 12:30 98.0 90 20 144/78 (100) 96 03/19/19 11:30 97.5 90 20 138/73 (94) 96 03/19/19 10:30 97.2 90 20 107/52 (70) 96 03/19/19 10:00 97.0 87 20 98/52 (67) 96 03/19/19 09:55 Nasal Cannula 2.0 03/19/19 09:47 97.4 85 23 98/54 97 Nasal Cannula 3 03/19/19 09:40 83 24 97/53 98 Nasal Cannula 3 03/19/19 09:30 81 25 98/51 98 Nasal Cannula 3 03/19/19 09:20 81 26 92/48 98 Nasal Cannula 3 03/19/19 09:10 83 27 91/47 98 Nasal Cannula 3 03/19/19 09:00 83 24 92/48 98 Nasal Cannula 3 03/19/19 08:55 84 20 93/48 100 Nasal Cannula 3 03/19/19 08:45 87 17 87/46 100 Simple Mask 6 03/19/19 08:40 85 18 99/49 100 Simple Mask 6 03/19/19 08:37 97.3 88 15 100/52 100 Simple Mask 6 03/19/19 08:35 86 16 100 Intake and Output 03/19/19 03/20/19 19:00 07:00 Intake Total 2505 ml 915 ml Output Total 50 ml 900 ml Balance 2455 ml 15 ml Intake Oral 480 ml 240 ml IV Total 2025 ml 675 ml Output Urine Total 900 ml Estimated Blood Loss 50 ml # Voids 3 # Bowel Movements 1 Laboratory Tests Test 03/20/19 05:30 White Blood Count 8.7 K/UL (4.8-10.8) Red Blood Count 3.87 M/UL (4.70-6.10) L Hemoglobin 10.5 G/DL (14.2-18.0) L Hematocrit 32.7 % (42.0-52.0) L Mean Corpuscular Volume 84 FL (80-99) Mean Corpuscular Hemoglobin 27.2 PG (27.0-31.0) Mean Corpuscular Hemoglobin Concent 32.2 G/DL (32.0-36.0) Red Cell Distribution Width 14.9 % (11.6-14.8) H Platelet Count 272 K/UL (150-450) Mean Platelet Volume 6.5 FL (6.5-10.1) Neutrophils (%) (Auto) 71.5 % (45.0-75.0) Lymphocytes (%) (Auto) 10.9 % (20.0-45.0) L Monocytes (%) (Auto) 16.5 % (1.0-10.0) H Eosinophils (%) (Auto) 0.7 % (0.0-3.0) Basophils (%) (Auto) 0.3 % (0.0-2.0) Sodium Level 135 MMOL/L (136-145) L Potassium Level 3.2 MMOL/L (3.5-5.1) L Chloride Level 105 MMOL/L (98-107) Carbon Dioxide Level 27 MMOL/L (21-32) Anion Gap 3 mmol/L (5-15) L Blood Urea Nitrogen 9 mg/dL (7-18) Creatinine 1.0 MG/DL (0.55-1.30) Estimat Glomerular Filtration Rate mL/min (>60) Glucose Level 121 MG/DL (74-106) H Calcium Level 8.1 MG/DL (8.5-10.1) L Phosphorus Level 2.6 MG/DL (2.5-4.9) Magnesium Level 1.8 MG/DL (1.8-2.4) Total Bilirubin 0.6 MG/DL (0.2-1.0) Aspartate Amino Transf (AST/SGOT) 40 U/L (15-37) H Alanine Aminotransferase (ALT/SGPT) 22 U/L (12-78) Alkaline Phosphatase 109 U/L (46-116) Total Protein 6.2 G/DL (6.4-8.2) L Albumin 2.0 G/DL (3.4-5.0) L Globulin 4.2 g/dL Albumin/Globulin Ratio 0.5 (1.0-2.7) L Wound: clean, dry, intact Drains: none Neuro Status: other - pt doesn't follow commands to asses N/V status Vascular Status: normal Additional Comments xray reviewed: no evidence of dislocation. position anatomic. on eval of pt's LE, no shortening, no external rotation, abd pillow in place. pt doesn't follow commands to asses N/V status Assessment Post-op Diagnosis POD 1 Procedure Performed rt hip hemiarthroplasty Plan Plan: PT, discharge plan - fu dr camacho as outpt Mariam Yepez Mar 20, 2019 08:13
[2019-03-20] MEDS: Docusate 100mg cap ORAL SCH ×3 (08:17→17:50)
[2019-03-20] MEDS: Aspirin Baby 81mg ORAL SCH ×2 (08:17→17:50)
[2019-03-20] MEDS: Furosemide 40mg tab ORAL SCH ×2 (08:18→17:50)
--- NOTE | 2019-03-20 11:00 | NUR ---
NURSE NOTES:UP IN CHAIR WITH PT.CALL LIGHT WITH IN REACH.
--- NOTE | 2019-03-20 11:59 | Pulmonology Progress Note ---
Assessment/Plan Problems: (1) Hip fracture (2) Knee injury (3) COPD (chronic obstructive pulmonary disease) (4) Hypothyroidism (5) Developmental delay (6) HTN (hypertension) Assessment/Plan dc iv fluids K supplement tolerated the surgery very well all reviewed pain management titrate fio2 to sat of 92% monitor BP symptomatic treatment. dc planning in progress Subjective ROS Limited/Unobtainable: No Constitutional: Reports: no symptoms HEENT: Repors: no symptoms Respiratory: Reports: no symptoms Allergies: Coded Allergies: No Known Allergies (Unverified , 06/15/12) Objective Last 24 Hour Vital Signs Date Time Temp Pulse Resp B/P (MAP) Pulse Ox O2 Delivery O2 Flow Rate FiO2 03/20/19 08:17 84 143/74 03/20/19 08:00 97.7 84 20 143/74 (97) 98 03/20/19 07:15 Room Air 03/20/19 04:00 97.8 97 20 129/68 (88) 96 03/20/19 00:00 98.1 86 20 112/60 (77) 96 03/19/19 21:00 Room Air 03/19/19 20:00 98.5 100 20 131/66 (87) 96 03/19/19 16:00 98.2 93 18 133/66 (88) 98 03/19/19 12:30 98.0 90 20 144/78 (100) 96 Intake and Output 03/19/19 03/20/19 19:00 07:00 Intake Total 2505 ml 915 ml Output Total 50 ml 900 ml Balance 2455 ml 15 ml Intake Oral 480 ml 240 ml IV Total 2025 ml 675 ml Output Urine Total 900 ml Estimated Blood Loss 50 ml # Voids 3 # Bowel Movements 1 Objective General Appearance: WD/WN HEENT: normocephalic Respiratory/Chest: chest wall non-tender, normal breath sounds Cardiovascular: normal peripheral pulses, normal rate Abdomen: normal bowel sounds, soft, non tender Genitourinary: normal external genitalia Extremities: no cyanosis Skin: no lesions Laboratory Tests 03/20/19 05:30: White Blood Count 8.7, Red Blood Count 3.87L, Hemoglobin 10.5L, Hematocrit 32.7L , Mean Corpuscular Volume 84, Mean Corpuscular Hemoglobin 27.2, Mean Corpuscular Hemoglobin Concent 32.2, Red Cell Distribution Width 14.9H, Platelet Count 272, Mean Platelet Volume 6.5, Neutrophils (%) (Auto) 71.5, Lymphocytes (%) (Auto) 10.9L, Monocytes (%) (Auto) 16.5H, Eosinophils (%) (Auto ) 0.7, Basophils (%) (Auto) 0.3, Sodium Level 135L, Potassium Level 3.2L, Chloride Level 105, Carbon Dioxide Level 27, Anion Gap 3L, Blood Urea Nitrogen 9 , Creatinine 1.0, Estimat Glomerular Filtration Rate , Glucose Level 121H, Calcium Level 8.1L, Phosphorus Level 2.6, Magnesium Level 1.8, Total Bilirubin 0.6, Aspartate Amino Transf (AST/SGOT) 40H, Alanine Aminotransferase (ALT/SGPT) 22, Alkaline Phosphatase 109, Total Protein 6.2L, Albumin 2.0L, Globulin 4.2, Albumin/Globulin Ratio 0.5L Current Medications Medications (Trade) Dose Ordered Sig/Brian Route PRN Reason Start Time Stop Time Status Last Admin Dose Admin Acetaminophen (Tylenol) 650 mg Q4H PRN ORAL Mild Pain (Pain Scale 1-3) 03/19/19 06:45 04/18/19 06:44 Acetaminophen (Tylenol) 650 mg Q4H PRN ORAL temp>100 03/19/19 06:45 04/18/19 06:44 Amlodipine Besylate (Norvasc) 2.5 mg DAILY ORAL 03/11/19 09:00 04/10/19 08:59 03/20/19 08:17 Aspirin (ASA) 81 mg BID ORAL 03/19/19 09:00 04/18/19 08:59 03/20/19 08:17 Bisacodyl (Dulcolax) 10 mg Q12H PRN RECTAL Constipation 03/19/19 06:45 04/18/19 06:44 Clonidine HCl (Catapres Tab) 0.1 mg Q6H PRN ORAL SBP >160 03/14/19 13:00 04/13/19 12:59 03/14/19 13:45 Dextrose (Dextrose 50%) 25 ml Q30M PRN IV Hypoglycemia 03/10/19 13:45 04/09/19 13:43 Dextrose (Dextrose 50%) 50 ml Q30M PRN IV hypoglycemia 03/10/19 13:45 04/09/19 13:44 Dextrose/ Electrolytes 1,000 ml @ 75 mls/hr [id number] IV 03/19/19 07:00 04/18/19 06:59 03/20/19 04:55 Docusate Sodium (Colace) 100 mg THREE TIMES A DAY ORAL 03/19/19 09:00 04/18/19 08:59 03/20/19 08:17 Ferrous Sulfate (Feosol) 325 mg TID@0630,1130,1630 ORAL 03/19/19 11:30 04/18/19 11:29 03/20/19 06:23 Furosemide (Lasix) 40 mg TWICE A DAY ORAL 03/10/19 18:00 04/09/19 17:59 03/20/19 08:18 Hydromorphone HCl (Dilaudid) 1 mg Q4H PRN SUBQ Mild Pain (Pain Scale 1-3) 03/19/19 06:45 03/26/19 06:44 03/19/19 12:18 Levothyroxine Sodium (Synthroid) 75 mcg Q24H ORAL 03/11/19 06:30 04/10/19 06:29 03/20/19 06:23 Ondansetron HCl (Zofran) 4 mg Q6H PRN IVP Nausea & Vomiting 03/10/19 13:45 04/09/19 13:44 Pantoprazole (Protonix) 40 mg DAILY ORAL 03/19/19 09:00 04/18/19 08:59 03/20/19 08:17 Polyethylene Glycol (Miralax) 17 gm HSPRN PRN ORAL Constipation 03/10/19 13:45 04/09/19 13:44 Potassium Chloride (K-Dur) 20 meq DAILY ORAL 03/16/19 09:00 04/15/19 08:59 03/20/19 08:17 Yolanda Lazcano MD Mar 20, 2019 11:59
[2019-03-20 12:00] VITALS: BP 144/65
--- NOTE | 2019-03-20 12:32 | 48 Hour Post Anesthesia Eval ---
Post Anesthesia Evaluation Procedure: R Hip Hemiarthroplasty Date of Evaluation: Mar 20, 2019 Time of Evaluation: 12:31 Blood Pressure Systolic: 148 0: 56 Pulse Rate: 74 Respiratory Rate: 20 Temperature (Fahrenheit): 97.6 O2 Sat by Pulse Oximetry: 97 Airway: patent Nausea: No Vomiting: No Pain Intensity: 2 Hydration Status: adequate Cardiopulmonary Status: stable Mental Status/LOC: patient returned to baseline Follow-up Care/Observations: n/a Post-Anesthesia Complications: none Follow-up care needed: N/A Julian Osborne MD Mar 20, 2019 12:32
--- NOTE | 2019-03-20 13:16 | NUR ---
HAND-OFF: Report given to JANET BARNARD.RE:CONTINUITY OF CARE.BEDSIDE ROUNDS DONE,PT.SITTING IN CHAIR STABLE.CALL LIGHT WITH IN REACH..
--- NOTE | 2019-03-20 15:30 | NUR ---
CASE MANAGEMENT: REVIEW 03/20/2019 SI:KNEE PAIN. UNSTEADY GAIT. UTI. T 98.7 HR 98 RR 18 B/P 144/65 SATS 96% ON RA NA 135 K 3.2 GLU 121 CA 8.1 AST 40 IS: IVF @ 75 ml/HR LASIX PO BID NORVASC PO QD SYNTHROID PO Q24H ASA PO BID K DUR PO QD PROTONIX PO QD CEFAZOLIN IV Q8H MED/SURG DCP: PATIENT TO BE DISCHARGED TO HOME ONCE MEDICALLY CLEARED. PLAN OF CARE: JAYNA KRAMER
--- NOTE | 2019-03-20 15:33 | NUR ---
INSURANCE REVIEWS FAXED TO AUTH#[id number] FAX CLINICALS TO: [phone]
--- NOTE | 2019-03-20 15:43 | NUR ---
P.T NOTE: LATE ENTRY 1030 PATIENT CLEARED BY PA TO CONTINUE TO WITH P.T EVALUATION S/P HEMIARTHROPLASTY. P.T EVALUATION COMPLETED. PATIENT IS ALERT, O TO SELF BUT NOT TO TIME AND SITUATION. PATIENT IS VERBALLY LIMITED HOWEVER IS COOPERATIVE AND RESPONDS TO NAME AND FOLLOWS SIMPLE ONE STEP COMMANDS THRU DEMONSTRATION AND MANUAL REDIRECTION. PATIENT DID NOT VERBALIZE PAIN HOWEVER WAS APPREHENSIVE DURING MOBILITY AND STANDING ACTIVITIES. PATIENT VERBALIZED " NO WALKING" WHILE STANDING USING THE FWW. PATIENT CURRENTLY REQUIRE MOD. A X 1 FOR BED MOBILITY AND TRANSFER ACTIVITIES. PATIENT UNABLE TO BEAR WT AND UNABLE TO ADVANCE RLE TO AMBULATE AT THIS TIME. SKILLED P.T SERVICE IS WARRANTED TO INCREASE STRENGTH, BALANCE AND ENDURANCE TO INCREASE MOBILITY INDEPENDENCE AND SAFETY. RECOMMEND DC TO SNF FOR FURTHER P.T
[2019-03-20 16:00] VITALS: BP 126/80
[2019-03-20] MEDS: HYDROmorphone 1mg/ml Carpuject SUBQ PRN (17:48)
[2019-03-20 20:00] VITALS: BP 100/68
--- NOTE | 2019-03-20 20:11 | NUR ---
NURSE NOTES: Pt has been nonverbal under senior copywriter care. Dilaudid given using flacc scale. Pt squirming yet unable to verbalize pain rate. Repositioned pillow in between legs. Caregiver called earlier in shift requesting an update. Informed that pt has been required to be fed. " You guys are spoiling him" Caregiver made aware that upon today pt has been fed. On day of arrival senior copywriter fed him due to pt merely starring at food. All anticipated needs require to be met, 2 to baseline.
--- NOTE | 2019-03-20 20:12 | NUR ---
NURSE NOTES: RECEIVED PT FROM [facility] IN[facility]. PT IS ASLEEP, ON ROOM AIR, NO ACUTE DISTRESS NOTED. PT IS NON-VERBAL, AAOXO. PT HAS A CONDOM CATH, INTACT AND DRAINING WELL. DRESSING ON LEFT HIP IS INTACT AND DRY, SCHEDULED TO BE CHANGE ON 03/22. IV ON LEFT AC 20G IS INTACT AND PATENT. BED IS LOCKED AT THE LOWEST POSITION, BED ALARMS ACTIVE, SIDE RAILS X2, AND CALL LIGHT IS WITHIN REACH. WILL CONTINUE TO MONITOR.
[2019-03-21] VITALS: BP 113/63
--- NOTE | 2019-03-21 | Internal Med Progress Note ---
Subjective Physician Name Librado Faria Attending Physician Chicho Ring MD Current Medications Medications (Trade) Dose Ordered Sig/Brian Route PRN Reason Start Time Stop Time Status Last Admin Dose Admin Acetaminophen (Tylenol) 650 mg Q4H PRN ORAL Mild Pain (Pain Scale 1-3) 03/19/19 06:45 04/18/19 06:44 Acetaminophen (Tylenol) 650 mg Q4H PRN ORAL temp>100 03/19/19 06:45 04/18/19 06:44 Amlodipine Besylate (Norvasc) 2.5 mg DAILY ORAL 03/11/19 09:00 04/10/19 08:59 03/20/19 08:17 Aspirin (ASA) 81 mg BID ORAL 03/19/19 09:00 04/18/19 08:59 03/20/19 17:50 Bisacodyl (Dulcolax) 10 mg Q12H PRN RECTAL Constipation 03/19/19 06:45 04/18/19 06:44 Clonidine HCl (Catapres Tab) 0.1 mg Q6H PRN ORAL SBP >160 03/14/19 13:00 04/13/19 12:59 03/14/19 13:45 Dextrose (Dextrose 50%) 25 ml Q30M PRN IV Hypoglycemia 03/10/19 13:45 04/09/19 13:43 Dextrose (Dextrose 50%) 50 ml Q30M PRN IV hypoglycemia 03/10/19 13:45 04/09/19 13:44 Docusate Sodium (Colace) 100 mg THREE TIMES A DAY ORAL 03/19/19 09:00 04/18/19 08:59 03/20/19 17:50 Ferrous Sulfate (Feosol) 325 mg TID@0630,1130,1630 ORAL 03/19/19 11:30 04/18/19 11:29 03/20/19 17:47 Furosemide (Lasix) 40 mg TWICE A DAY ORAL 03/10/19 18:00 04/09/19 17:59 03/20/19 17:50 Hydromorphone HCl (Dilaudid) 1 mg Q4H PRN SUBQ Mild Pain (Pain Scale 1-3) 03/19/19 06:45 03/26/19 06:44 03/20/19 17:48 Levothyroxine Sodium (Synthroid) 75 mcg Q24H ORAL 03/11/19 06:30 04/10/19 06:29 03/20/19 06:23 Ondansetron HCl (Zofran) 4 mg Q6H PRN IVP Nausea & Vomiting 03/10/19 13:45 04/09/19 13:44 Pantoprazole (Protonix) 40 mg DAILY ORAL 03/19/19 09:00 04/18/19 08:59 03/20/19 08:17 Polyethylene Glycol (Miralax) 17 gm HSPRN PRN ORAL Constipation 03/10/19 13:45 04/09/19 13:44 Potassium Chloride (K-Dur) 20 meq DAILY ORAL 03/16/19 09:00 04/15/19 08:59 03/20/19 08:17 Allergies: Coded Allergies: No Known Allergies (Unverified , 06/15/12) Subjective awake, responsive, demented, denies CP or SOB. Objective Last Vital Signs Date Time Temp Pulse Resp B/P (MAP) Pulse Ox O2 Delivery O2 Flow Rate FiO2 03/20/19 16:00 97.8 76 18 126/80 (95) 98 03/20/19 07:15 Room Air 03/19/19 09:55 2.0 Laboratory Tests Test 03/20/19 05:30 White Blood Count 8.7 K/UL (4.8-10.8) Red Blood Count 3.87 M/UL (4.70-6.10) L Hemoglobin 10.5 G/DL (14.2-18.0) L Hematocrit 32.7 % (42.0-52.0) L Mean Corpuscular Volume 84 FL (80-99) Mean Corpuscular Hemoglobin 27.2 PG (27.0-31.0) Mean Corpuscular Hemoglobin Concent 32.2 G/DL (32.0-36.0) Red Cell Distribution Width 14.9 % (11.6-14.8) H Platelet Count 272 K/UL (150-450) Mean Platelet Volume 6.5 FL (6.5-10.1) Neutrophils (%) (Auto) 71.5 % (45.0-75.0) Lymphocytes (%) (Auto) 10.9 % (20.0-45.0) L Monocytes (%) (Auto) 16.5 % (1.0-10.0) H Eosinophils (%) (Auto) 0.7 % (0.0-3.0) Basophils (%) (Auto) 0.3 % (0.0-2.0) Sodium Level 135 MMOL/L (136-145) L Potassium Level 3.2 MMOL/L (3.5-5.1) L Chloride Level 105 MMOL/L (98-107) Carbon Dioxide Level 27 MMOL/L (21-32) Anion Gap 3 mmol/L (5-15) L Blood Urea Nitrogen 9 mg/dL (7-18) Creatinine 1.0 MG/DL (0.55-1.30) Estimat Glomerular Filtration Rate mL/min (>60) Glucose Level 121 MG/DL (74-106) H Calcium Level 8.1 MG/DL (8.5-10.1) L Phosphorus Level 2.6 MG/DL (2.5-4.9) Magnesium Level 1.8 MG/DL (1.8-2.4) Total Bilirubin 0.6 MG/DL (0.2-1.0) Aspartate Amino Transf (AST/SGOT) 40 U/L (15-37) H Alanine Aminotransferase (ALT/SGPT) 22 U/L (12-78) Alkaline Phosphatase 109 U/L (46-116) Total Protein 6.2 G/DL (6.4-8.2) L Albumin 2.0 G/DL (3.4-5.0) L Globulin 4.2 g/dL Albumin/Globulin Ratio 0.5 (1.0-2.7) L Intake and Output 03/19/19 03/20/19 19:00 07:00 Intake Total 2505 ml 915 ml Output Total 50 ml 900 ml Balance 2455 ml 15 ml Intake Oral 480 ml 240 ml IV Total 2025 ml 675 ml Output Urine Total 900 ml Estimated Blood Loss 50 ml # Voids 3 # Bowel Movements 1 Objective General: No acute distress, awake and more responsive . HEENT: NCAT, sclera anicteric, PERRL, EOMI. Neck: Supple, no significant jugular venous distention, Lungs: fair inspiratory effort, Decrease air at base, no Wheeze or Rales. Heart: Regular rate and rhythm, normal S1/S2, no murmur. Abdomen: soft, nontender, nondistended. Normoactive bowel sounds. Pelvic: Right hip surgical incision intact. : Lindsay cath. Extremities: No Cyanosis , clubbing or edema. Neuro: A&O x 3, Able to move all extremities, weakness of lower extremities, Skin: warm, no rash. Assessment/Plan Assessment/Plan 1. Right hip comminuted basicervical femoral neck fracture with involvement of the greater trochanter with severe comminution of the greater trochanter s/p Right hip hemiarthroplasty (03/19/2019). 2. Fall injury with Right hip fracture. 3. Congestive heart failure. 4. Hypertension. 5. Coronary artery disease. 6. Hypothyroidism. 7. History of cellulitis, right lower extremity. 8. Developmental delay. 9. Aphasia 10. Hypokalemia. Plan: Consider DC planning to SNF. monitor labs PT Mobility F/u with Ortho recommendations. Kcl supplements. Librado Faria MD Mar 20, 2019 23:59
[2019-03-21 04:00] VITALS: BP 123/66
[2019-03-21 06:13] LABS: BASOPHILS % (AUTO) 0.3 % (0.0-2.0); EOSINOPHILS % (AUTO) 1.3 % (0.0-3.0); HEMATOCRIT 30.4 % (42.0-52.0); HEMOGLOBIN 9.9 G/DL (14.2-18.0); LYMPHOCYTES % (AUTO) 9.4 % (20.0-45.0); MEAN CORPUSCULAR VOLUME 84 FL (80-99); MONOCYTES % (AUTO) 13.6 % (1.0-10.0); NEUTROPHILS % (AUTO) 75.4 % (45.0-75.0); PLATELET COUNT 262 K/UL (150-450); RED CELL DISTRIBUTION WIDTH 14.7 % (11.6-14.8)
[2019-03-21 07:15] LABS: ALANINE AMINOTRANSFERASE 14 U/L (12-78); ALBUMIN 1.8 G/DL (3.4-5.0); ALBUMIN/GLOBULIN RATIO 0.4 (1.0-2.7); ALKALINE PHOSPHATASE 100 U/L (46-116); ANION GAP 5 mmol/L (5-15); ASPARTATE AMINO TRANSFERASE 34 U/L (15-37); BILIRUBIN,TOTAL 0.5 MG/DL (0.2-1.0); BLOOD UREA NITROGEN 12 mg/dL (7-18); CALCIUM 8.3 MG/DL (8.5-10.1); CARBON DIOXIDE 28 MMOL/L (21-32); CHLORIDE 103 MMOL/L (98-107); POTASSIUM 3.6 MMOL/L (3.5-5.1); SODIUM 136 MMOL/L (136-145)
--- NOTE | 2019-03-21 07:37 | NUR ---
HAND-OFF: Report given to EVON Jimenez.
--- NOTE | 2019-03-21 07:40 | NUR ---
NURSE NOTES: Received report from Vanessa, RN. Rounding done with outgoing nurse. Patient a/o x 1, confused, in bed. Right hip surgical dressing is C/D/I. No pain noted. IV access is patent. Condom catheter is in placed, yellowish urine color noted. Bed alarm is on. Bed in lowest position, call light within reach. Will continue to monitor.
[2019-03-21 08:00] VITALS: BP 107/55
[2019-03-21] MEDS: Aspirin Baby 81mg ORAL SCH (08:53)
[2019-03-21] MEDS: Furosemide 40mg tab ORAL SCH (08:53)
[2019-03-21] MEDS: Docusate 100mg cap ORAL SCH ×2 (08:53→12:22)
[2019-03-21] MEDS: HYDROmorphone 1mg/ml Carpuject SUBQ PRN (10:49)
--- NOTE | 2019-03-21 11:28 | NUR ---
CASE MANAGEMENT: REVIEW 03/21/2019 SI:KNEE PAIN. UNSTEADY GAIT. UTI. T 98.5 HR 108 RR 18 B/P 113/63 SATS 96% ON RA WBC 11 CA 8.3 BNP 345 IS: IVF @ 75 ml/HR LASIX PO BID NORVASC PO QD SYNTHROID PO Q24H ASA PO BID K DUR PO QD PROTONIX PO QD CEFAZOLIN IV Q8H MED/SURG DCP: PATIENT TO BE DISCHARGED TO HOME ONCE MEDICALLY CLEARED. PLAN OF CARE: CONTINUE PT
--- NOTE | 2019-03-21 11:32 | NUR ---
INSURANCE REVIEWS FAXED TO AUTH#[id number] FAX CLINICALS TO: [phone]
[2019-03-21 12:00] VITALS: BP 119/57
--- NOTE | 2019-03-21 12:18 | Pulmonology Progress Note ---
Assessment/Plan Problems: (1) Hip fracture (2) Knee injury (3) COPD (chronic obstructive pulmonary disease) (4) Hypothyroidism (5) Developmental delay (6) HTN (hypertension) Assessment/Plan electrolytes are better tolerated the surgery very well all reviewed pain management titrate fio2 to sat of 92% monitor BP symptomatic treatment. dc planning in progress Subjective ROS Limited/Unobtainable: No Constitutional: Reports: no symptoms HEENT: Repors: no symptoms Respiratory: Reports: no symptoms Allergies: Coded Allergies: No Known Allergies (Unverified , 06/15/12) Objective Last 24 Hour Vital Signs Date Time Temp Pulse Resp B/P (MAP) Pulse Ox O2 Delivery O2 Flow Rate FiO2 03/21/19 09:00 Room Air 03/21/19 08:53 81 107/55 03/21/19 08:00 98.0 81 19 107/55 (72) 99 03/21/19 04:00 98.6 84 18 123/66 (85) 03/21/19 00:00 98.5 108 18 113/63 (80) 96 03/20/19 21:00 Room Air 03/20/19 20:00 98.7 77 17 100/68 (79) 99 03/20/19 16:00 97.8 76 18 126/80 (95) 98 03/20/19 12:32 74 20 97 Intake and Output 03/20/19 03/21/19 19:00 07:00 Intake Total 300 ml Output Total 550 ml Balance 300 ml -550 ml Intake Oral 300 ml Output Urine Total 550 ml # Voids 2 # Bowel Movements 1 Objective General Appearance: WD/WN HEENT: normocephalic Respiratory/Chest: chest wall non-tender, normal breath sounds Cardiovascular: normal peripheral pulses, normal rate Abdomen: normal bowel sounds, soft, non tender Genitourinary: normal external genitalia Extremities: no cyanosis Skin: no lesions Laboratory Tests 03/21/19 05:25: White Blood Count 11.0H, Red Blood Count 3.60L, Hemoglobin 9.9L, Hematocrit 30.4L, Mean Corpuscular Volume 84, Mean Corpuscular Hemoglobin 27.5, Mean Corpuscular Hemoglobin Concent 32.6, Red Cell Distribution Width 14.7, Platelet Count 262, Mean Platelet Volume 7.2, Neutrophils (%) (Auto) 75.4H, Lymphocytes ( %) (Auto) 9.4L, Monocytes (%) (Auto) 13.6H, Eosinophils (%) (Auto) 1.3, Basophils (%) (Auto) 0.3, Sodium Level 136, Potassium Level 3.6, Chloride Level 103, Carbon Dioxide Level 28, Anion Gap 5, Blood Urea Nitrogen 12, Creatinine 1.0, Estimat Glomerular Filtration Rate , Glucose Level 91, Calcium Level 8.3L, Total Bilirubin 0.5, Aspartate Amino Transf (AST/SGOT) 34, Alanine Aminotransferase (ALT/SGPT) 14, Alkaline Phosphatase 100, Pro-B-Type Natriuretic Peptide 345H, Total Protein 5.8L, Albumin 1.8L, Globulin 4.0, Albumin/Globulin Ratio 0.4L Current Medications Medications (Trade) Dose Ordered Sig/Brian Route PRN Reason Start Time Stop Time Status Last Admin Dose Admin Acetaminophen (Tylenol) 650 mg Q4H PRN ORAL Mild Pain (Pain Scale 1-3) 03/19/19 06:45 04/18/19 06:44 Acetaminophen (Tylenol) 650 mg Q4H PRN ORAL temp>100 03/19/19 06:45 04/18/19 06:44 Amlodipine Besylate (Norvasc) 2.5 mg DAILY ORAL 03/11/19 09:00 04/10/19 08:59 03/20/19 08:17 Aspirin (ASA) 81 mg BID ORAL 03/19/19 09:00 04/18/19 08:59 03/21/19 08:53 Bisacodyl (Dulcolax) 10 mg Q12H PRN RECTAL Constipation 03/19/19 06:45 04/18/19 06:44 Clonidine HCl (Catapres Tab) 0.1 mg Q6H PRN ORAL SBP >160 03/14/19 13:00 04/13/19 12:59 03/14/19 13:45 Dextrose (Dextrose 50%) 25 ml Q30M PRN IV Hypoglycemia 03/10/19 13:45 04/09/19 13:43 Dextrose (Dextrose 50%) 50 ml Q30M PRN IV hypoglycemia 03/10/19 13:45 04/09/19 13:44 Docusate Sodium (Colace) 100 mg THREE TIMES A DAY ORAL 03/19/19 09:00 04/18/19 08:59 03/21/19 08:53 Ferrous Sulfate (Feosol) 325 mg TID@0630,1130,1630 ORAL 03/19/19 11:30 04/18/19 11:29 03/21/19 11:17 Furosemide (Lasix) 40 mg TWICE A DAY ORAL 03/10/19 18:00 04/09/19 17:59 03/21/19 08:53 Hydromorphone HCl (Dilaudid) 1 mg Q4H PRN SUBQ Mild Pain (Pain Scale 1-3) 03/19/19 06:45 03/26/19 06:44 03/21/19 10:49 Levothyroxine Sodium (Synthroid) 75 mcg Q24H ORAL 03/11/19 06:30 04/10/19 06:29 03/21/19 06:51 Ondansetron HCl (Zofran) 4 mg Q6H PRN IVP Nausea & Vomiting 03/10/19 13:45 04/09/19 13:44 Pantoprazole (Protonix) 40 mg DAILY ORAL 03/19/19 09:00 04/18/19 08:59 03/21/19 08:53 Polyethylene Glycol (Miralax) 17 gm HSPRN PRN ORAL Constipation 03/10/19 13:45 04/09/19 13:44 Potassium Chloride (K-Dur) 20 meq DAILY ORAL 03/16/19 09:00 04/15/19 08:59 03/21/19 08:52 Yolanda Lazcano MD Mar 21, 2019 12:18
--- NOTE | 2019-03-21 12:45 | NUR ---
DISCHARGE DISPOSITION: PLEASE READ PATIENT TO BE DISCHARGED TO [facility] [address] T: [phone]>> CALL FOR REPORT ROOM 23B SKILLED CAREGIVER ROHINI MADE AWARE OF THE DC
--- NOTE | 2019-03-21 13:08 | NUR ---
RD ASSESSMENT & RECOMMENDATIONS SEE CARE ACTIVITY FOR COMPLETE ASSESSMENT DAILY ESTIMATED NEEDS: Needs based on Cardiac, surgery 73.6kg adj 25-30 kcals/kg 6058-3375 total kcals 1-2 g protein/kg 74-147 g total protein 25-30 mL/kg 3135-7130 total fluid mLs NUTRITION DIAGNOSIS: 1) Chewing difficulty r/t developmental delay as evidenced by pt on puree texture w/ NTL, w/ good acceptance. 2) Increased kcal/pro needs r/t surgical wound healing as evidenced by s/p R hip hemiarthroplasty. (NEW) PO DIET RECOMMENDATIONS: REGULAR DIET (texture per [employer]) ADDITIONAL RECOMMENDATIONS: 1) [employer] eval for appropriate texture-> now on puree w/ NTL 2) Cont to monitor po intake; need for 1:1 or added supplements/ snacks 3) Maintain calibrated bed scale weights 4) Pt on lasix, monitor lytes daily, replete as needed (low K) -> add Puree banana daily 5) Add Ensure 1 bottle daily for added 350 kcal/20 g pro 6) As tolerated, rec MAGGIE in 8oz water BID for surgical wound healing
--- NOTE | 2019-03-21 14:05 | NUR ---
NURSE NOTES: Report was given to EVON Lofton at [facility].
--- NOTE | 2019-03-21 14:18 | NUR ---
DISCHARGE SWALLOW/SPEECH THERAPY SUMMARY: PATIENT SEEN FOR DYSPHAGIA, SEE SWALLOWING EVALUATION REPORT AND RECOMMENDATIONS. GOALS MET FOR INTAKE ON PUREED AND NECTAR THICK LIQUIDS WITH POSTED ASPIRATION PRECAUTIONS AND ONE TO ONE FEEDING. GOALS MET FOR NEW STAFF EDUCATED AND TRAINED IN POSTED ASPIRATION AND REFLUX PRECAUTIONS. PLAN; CONTINUE WITH CURRENT DIET/LIQUIDS AND WAIT FOR UPGRADE BY [facility] AT [facility]. LIKELY HE COULD TOLERATE [facility] SOFT GROUND AND SLOWLY UPGRADE TOLERATED. UNABLE TO COMPLETE MODIFIED BARIUM SWALLOW STUDY (MBSS) (DUE TO SCHEDULE CONFLICTS) TO FURTHER ASSESS SWALLOW, DETERMINE SILENT ASPIRATION RISK, AND ATTEMPT TRIAL TX TECHNQUES. TRY TO CLEAR FOR THIN LIQUIDS VIA MBSS. CAN DO OUTPT Addendum: 03/21/19 at 1422 by QUINTEN SANCHEZ [employer] CONSIDER COGNITIVE-COMMUNICATIVE EVAL/TX
--- NOTE | 2019-03-21 15:15 | NUR ---
NURSE NOTES: Belongings were given (1 shirts). Removed IV access. Removed arm band. Patient discharged with ambulance personnel in stable condition.
--- NOTE | 2019-03-21 15:33 | Internal Med Progress Note ---
Subjective Physician Name Librado Faria Attending Physician Chicho Ring MD Allergies: Coded Allergies: No Known Allergies (Unverified , 06/15/12) Subjective awake, responsive, demented, denies CP or SOB. Objective Last Vital Signs Date Time Temp Pulse Resp B/P (MAP) Pulse Ox O2 Delivery O2 Flow Rate FiO2 03/21/19 12:00 98.3 96 18 119/57 (77) 96 03/21/19 09:00 Room Air 03/19/19 09:55 2.0 Laboratory Tests Test 03/21/19 05:25 White Blood Count 11.0 K/UL (4.8-10.8) H Red Blood Count 3.60 M/UL (4.70-6.10) L Hemoglobin 9.9 G/DL (14.2-18.0) L Hematocrit 30.4 % (42.0-52.0) L Mean Corpuscular Volume 84 FL (80-99) Mean Corpuscular Hemoglobin 27.5 PG (27.0-31.0) Mean Corpuscular Hemoglobin Concent 32.6 G/DL (32.0-36.0) Red Cell Distribution Width 14.7 % (11.6-14.8) Platelet Count 262 K/UL (150-450) Mean Platelet Volume 7.2 FL (6.5-10.1) Neutrophils (%) (Auto) 75.4 % (45.0-75.0) H Lymphocytes (%) (Auto) 9.4 % (20.0-45.0) L Monocytes (%) (Auto) 13.6 % (1.0-10.0) H Eosinophils (%) (Auto) 1.3 % (0.0-3.0) Basophils (%) (Auto) 0.3 % (0.0-2.0) Sodium Level 136 MMOL/L (136-145) Potassium Level 3.6 MMOL/L (3.5-5.1) Chloride Level 103 MMOL/L (98-107) Carbon Dioxide Level 28 MMOL/L (21-32) Anion Gap 5 mmol/L (5-15) Blood Urea Nitrogen 12 mg/dL (7-18) Creatinine 1.0 MG/DL (0.55-1.30) Estimat Glomerular Filtration Rate mL/min (>60) Glucose Level 91 MG/DL (74-106) Calcium Level 8.3 MG/DL (8.5-10.1) L Total Bilirubin 0.5 MG/DL (0.2-1.0) Aspartate Amino Transf (AST/SGOT) 34 U/L (15-37) Alanine Aminotransferase (ALT/SGPT) 14 U/L (12-78) Alkaline Phosphatase 100 U/L (46-116) Pro-B-Type Natriuretic Peptide 345 pg/mL (0-125) H Total Protein 5.8 G/DL (6.4-8.2) L Albumin 1.8 G/DL (3.4-5.0) L Globulin 4.0 g/dL Albumin/Globulin Ratio 0.4 (1.0-2.7) L Intake and Output 03/20/19 03/21/19 19:00 07:00 Intake Total 300 ml Output Total 550 ml Balance 300 ml -550 ml Intake Oral 300 ml Output Urine Total 550 ml # Voids 2 # Bowel Movements 1 Objective General: No acute distress, awake and more responsive . HEENT: NCAT, sclera anicteric, PERRL, EOMI. Neck: Supple, no significant jugular venous distention, Lungs: fair inspiratory effort, Decrease air at base, no Wheeze or Rales. Heart: Regular rate and rhythm, normal S1/S2, no murmur. Abdomen: soft, nontender, nondistended. Normoactive bowel sounds. Pelvic: Right hip surgical incision intact. : Lindsay cath. Extremities: No Cyanosis , clubbing or edema. Neuro: A&O x 3, Able to move all extremities, weakness of lower extremities, Skin: warm, no rash. Assessment/Plan Assessment/Plan 1. Right hip comminuted basicervical femoral neck fracture with involvement of the greater trochanter with severe comminution of the greater trochanter s/p Right hip hemiarthroplasty (03/19/2019). 2. Fall injury with Right hip fracture. 3. Congestive heart failure. 4. Hypertension. 5. Coronary artery disease. 6. Hypothyroidism. 7. History of cellulitis, right lower extremity. 8. Developmental delay. 9. Aphasia 10. Hypokalemia. Plan: DC planning to SNF today. monitor labs in SNF PT Mobility F/u with Ortho recommendations. Librado Faria MD Mar 21, 2019 15:33
== END 2019-03-21 15:15 | DRG 301 ==
LOC: EDBD 07:38 → EMR 08:05 → 3E 11:12 → UNDOADMOB 11:12 → EDBEDREQ 11:34 → EMR 12:13 → INTOOBSV 19:49 → OBSVTOIN 19:49
PROC: 0SRR0JZ Replacement of Right Hip Joint, Femoral Surface with Synthetic Substitute, Open Approach (ICD-10-PCS; principal; 2019-03-19 06:45)
DX: S72.041A Displaced fracture of base of neck of right femur, initial encounter for closed fracture (principal); I11.0 Hypertensive heart disease with heart failure; J44.9 Chronic obstructive pulmonary disease, unspecified; I50.9 Heart failure, unspecified; R47.01 Aphasia; R62.50 Unspecified lack of expected normal physiological development in childhood; W19.XXXA Unspecified fall, initial encounter; Y92.099 Unspecified place in other non-institutional residence as the place of occurrence of the external cause; I25.10 Atherosclerotic heart disease of native coronary artery without angina pectoris; E03.9 Hypothyroidism, unspecified; M81.0 Age-related osteoporosis without current pathological fracture; N39.0 Urinary tract infection, site not specified; M25.561 Pain in right knee; E87.6 Hypokalemia
CPT/HCPCS: 36415; 70450; 71045; 72170; 73521; 76770; 80048; 80053; 80061; 81003; 82550; 82553; 83735; 83880; 84100; 84443; 84484; 85025; 87081; 93005; 93306; 93970; 94003; 94150; 96365; 99285; J8499